=== PATIENT | male | born 1980 | race Hispanic/Latino ===

== ENCOUNTER 2019-02-11 15:43 | Inpatient (IN) | payer BC, SELFPAY ==
--- OUTSIDE RECORDS SUMMARY | 2019-02-11 15:47 | XMS REPORT | Summary of Care ---
:1980 Author Organization [facility] Address [address] [place] [address]- Encounter [facility](BARBARA) [id number] Date(s): 02/01/16 - 02/02/[address] [address]- Discharge Disposition: Home Attending Physician: Vincent Patel MD Admitting Physician: Vincent Patel MD Referring Physician: Vincent Patel MD Vital Signs Most recent to oldest 1 2 3 [Reference Range]: Height 180.34 cm (01/19/16 10:41 AM) Temperature Oral [96.4-99.1 98 DegF 98.1 DegF 98.2 DegF DegF] (02/02/16 8:00 PM) (02/02/16 3:58 PM) (02/02/16 12:07 PM) Blood Pressure [90-140/60-90 157/89 mmHg 136/82 mmHg 136/75 mmHg mmHg] *HI* (02/02/16 3:58 PM) (02/02/16 12:07 PM) (02/02/16 8:00 PM) Respiratory Rate [14-20 20 BRMIN 18 BRMIN 17 BRMIN BRMIN] (02/02/16 8:00 PM) (02/02/16 3:58 PM) (02/02/16 12:07 PM) Peripheral Pulse Rate [60-100 56 bpm 53 bpm 79 bpm bpm] *LOW* *LOW* (02/02/16 12:07 PM) (02/02/16 8:00 PM) (02/02/16 3:58 PM) Weight 148.182 kg (01/19/16 10:41 AM) Body Mass Index 45.56 m2 (01/19/16 10:41 AM) Problem List Condition Effective Dates Status Health Status Informant Acid reflux(Confirmed) Resolved back BP+ - Hypertension(Confirmed) Active C/O - low back pain(Confirmed) Active Degenerative disc disease(Confirmed) Active Morbid obesity(Confirmed) Active Allergies, Adverse Reactions, Alerts Substance Reaction Severity Status NKDA Active Medications Ancef 3 gm, 100 mL, Route: IVPB, Drug form: INJ, ONCALL, Start date: 02/01/16 0:00:00 CDT, Duration: 30 day, Stop date: 03/01/16 23:59:00 CDT Notes: Same as: Ancef Start Date: 02/01/16 Stop Date: 02/01/16 Status: CompletedANES diphenhydrAMINE 12.5 mg, 0.25 mL, Route: IVP, Drug form: INJ, Q6H, Dosing Weight 148.182, kg, PRN Itching, Start date: 02/01/16 11:33:00 CDT, Duration: 30 day, Stop date: 07/06 11:32:00 CDT Notes: (Same as: Benadryl) Start Date: 02/01/16 Stop Date: 02/01/16 Status: DiscontinuedANES fentaNYL 25 microgram, 0.5 mL, Route: IVP, Drug form: INJ, Q5Min, Dosing Weight 148.182, kg, PRN Pain Score 4-6, Start date: 02/01/16 11:33:00 CDT, Duration: 4 doses or times, Stop date: Limited # of times Notes: (Same as: Sublimaze) Preservative free. Start Date: 02/01/16 Stop Date: 02/01/16 Status: DiscontinuedANES flumazenil 0.2 mg, 2 mL, Route: IVP, Drug form: INJ, PRN, Dosing Weight 148.182, kg, PRN Benzodiazepine Reversal, Initial dose, Start date: 02/01/16 7:44:00 CDT, Duration: 30 day, Stop date: 03/02/16 7:43:00 CDT Notes: (Same as: Romazicon) Start Date: 02/01/16 Stop Date: 02/01/16 Status: DiscontinuedANES flumazenil 0.2 mg, 2 mL, Route: IVP, Drug form: INJ, PRN, Dosing Weight 148.182, kg, PRN Benzodiazepine Reversal, Initial dose, Start date: 02/01/16 11:33:00 CDT, Duration: 30 day, Stop date: 03/02/16 11:32:00 CDT Notes: (Same as: Romazicon) Start Date: 02/01/16 Stop Date: 02/01/16 Status: DiscontinuedANES HYDROmorphone 0.5 mg, 0.25 mL, Route: IVP, Drug form: INJ, Q5Min, Dosing Weight 148.182, kg, PRN Pain Score 7-10, Start date: 02/01/16 11:33:00 CDT, Duration: 4 doses or times, Stop date: Limited # of times Notes: (Same as: Dilaudid) Start Date: 02/01/16 Stop Date: 02/01/16 Status: CompletedANES ketOROLAC 30 mg, 1 mL, Route: IVP, Drug form: INJ, ONCE, Dosing Weight 148.182, kg, Start date: 02/01/16 11:33:00 CDT, Duration: 1 doses or times, Stop date: 02/01/16 11: 33:00 CDT Notes: (Same as:Toradol) IV bolus must be given >15 seconds. Give IM administration slowly and deeply into the muscle.Not for use > 4 days MEDICATION WASTE Product Size: 30 mgProduct Wasted: ___ mg Start Date: 02/01/16 Stop Date: 02/01/16 Status: DiscontinuedANES labetalol 10 mg, 2 mL, Route: IVP, Drug form: INJ, Q5Min, Dosing Weight 148.182, kg, PRN Elevated BP, Start date: 02/01/16 11:33:00 CDT, Duration: 5 doses or times, Stop date: Limited # of times Notes: (Same as: Normodyne, Trandate)Push over 2 minutes Give bolus over 2-3 minutes. Start Date: 02/01/16 Stop Date: 02/01/16 Status: DiscontinuedANES meperidine 12.5 mg, 0.25 mL, Route: IVP, Drug form: INJ, Q30Min, Dosing Weight 148.182, kg , PRN Other -See Comment, For shivering, Start date: 02/01/16 11:33:00 CDT, Duration: 2 doses or times, Stop date: Limited# of times Notes: (Same As: Demerol) Start Date: 02/01/16 Stop Date: 02/01/16 Status: DiscontinuedANES morphine Sulfate 2 mg, 0.2 mL, Route: IVP, Drug form: INJ, Q5Min, Dosing Weight 148.182, kg, PRN Pain Score 4-6, Start date: 02/01/16 11:33:00 CDT, Duration: 5 doses or times, Stop date: Limited # of times Notes: (Same as:MORPhine Sulfate) Start Date: 02/01/16 Stop Date: 02/01/16 Status: DiscontinuedANES naloxone 0.4 mg, 1 mL, Route: IVP, Drug form: INJ, Q2MIN, Dosing Weight 148.182, kg, PRN Narcotic Reversal, Start date: 02/01/16 7:44:00 CDT, Duration: 8 doses or times , Stop date: Limited # of times Notes: Same as Narcan Start Date: 02/01/16 Stop Date: 02/01/16 Status: DiscontinuedANES naloxone 0.4 mg, 1 mL, Route: IVP, Drug form: INJ, Q2MIN, Dosing Weight 148.182, kg, PRN Narcotic Reversal, Start date: 02/01/16 11:33:00 CDT, Duration: 8 doses or times , Stop date: Limited # of times Notes: Same as Narcan Start Date: 02/01/16 Stop Date: 02/01/16 Status: DiscontinuedANES ondansetron 4 mg, 2 mL, Route: IVP, Drug form: INJ, ONCE, Dosing Weight 148.182, kg, PRN Nausea & Vomiting, Start date: 02/01/16 7:44:00 CDT Notes: (Same as: Ysabel) MEDICATION WASTE Product Size: 4 mgProduct Wasted: ___ mg Start Date: 02/01/16 Stop Date: 02/01/16 Status: CompletedANES ondansetron 4 mg, 2 mL, Route: IVP, Drug form: INJ, ONCE, Dosing Weight 148.182, kg, PRN Nausea & Vomiting, Start date: 02/01/16 11:33:00 CDT Notes: (Same as: Ysabel) MEDICATION WASTE Product Size: 4 mgProduct Wasted: ___ mg Start Date: 02/01/16 Stop Date: 02/01/16 Status: DiscontinuedBD Normal Saline Flush 10 mL, Route: IV, Drug Form: INJ, PRN, PRN Line Flush, Start date: 02/01/16 14: 05:00 CDT, Duration: 30 day, Stop date: 03/02/16 14:04:00 CDT Notes: (Same as: BD Posiflush) Start Date: 02/01/16 Stop Date: 02/02/16 Status: DiscontinuedBD Normal Saline Flush 5 mL, Route: IV, Drug Form: INJ, PRN, PRN Line Flush, Start date: 02/01/16 14:04 :00 CDT, Duration: 30 day, Stop date: 03/02/16 14:03:00 CDT Notes: (Same as: BD Posiflush) Start Date: 02/01/16 Stop Date: 02/02/16 Status: DiscontinuedDilaudid 0.5 mg, 0.25 mL, Route: IV, Drug form: INJ, Q3H, Dosing Weight 148.182, kg, PRN Pain Score 7-10, Start date: 02/01/16 11:37:00 CDT, Duration: 30 day, Stop date : 03/02/16 11:36:00 CDT Notes: (Same as: Dilaudid) Start Date: 02/01/16 Stop Date: 02/02/16 Status: Discontinuedenoxaparin 30 mg, 0.3 mL, Route: SUB-Q, Drug form: INJ, [id number], Dosing Weight 148.182, kg , Start date: 02/01/16 23:30:00 CDT, Duration: 30 day, Stop date: 03/02/16 11:30 :00 CDT Notes: (Same as: Lovenox) Start Date: 02/01/16 Stop Date: 02/02/16 Status: DiscontinuedketOROLAC 30 mg, 1 mL, Route: IVP, Drug form: INJ, Q6H, Dosing Weight 148.182, kg, Start date: 02/01/16 15:00:00 CDT, Duration: 6 doses or times, Stop date: 02/02/16 21: 00:00 CDT Notes: (Same as:Toradol) IV bolus must be given >15 seconds. Give IM administration slowly and deeply into the muscle.Not for use > 4 days MEDICATION WASTE Product Size: 30 mgProduct Wasted: ___ mg Start Date: 02/01/16 Stop Date: 02/02/16 Status: CompletedLactated Ringers 1,000 mL 1,000 mL, Rate: 125 ml/hr, Infuse over: 8 hr, Route: IV, Dosing Weight 148.182 kg, Total Volume: 1,000, Start date: 02/01/16 11:34:00 CDT, Stop date: 02/02/16 9:00:00 CDT Start Date: 02/01/16 Stop Date: 02/02/16 Status: CompletedLactated Ringers 1,000 mL 1,000 mL, Rate: 80 ml/hr, Infuse over: 12.5 hr, Route: IV, Dosing Weight 148.182 kg, Total Volume: 1,000, Start date: 02/02/16 9:00:00 CDT, Duration: 30 day, Stop date: 03/03/16 8:59:00 CDT Start Date: 02/02/16 Stop Date: 02/02/16 Status: DiscontinuedLactated Ringers Injection IV 1000 mL 1,000 mL, Rate: 80 ml/hr, Infuse over: 12.5 hr, Route: IV, Dosing Weight 148.182 kg, Total Volume: 1,000, Priority: STAT, Start date: 02/01/16 11:34:00 CDT, Duration: 30 day, Stop date: 03/02/16 11:33:00 CDT Start Date: 02/01/16 Stop Date: 02/01/16 Status: Discontinuedondansetron 4 mg, 2 mL, Route: IVP, Drug form: INJ, Q12H, Dosing Weight 148.182, kg, PRN Nausea & Vomiting, Start date: 02/01/16 11:34:00 CDT, Duration: 30 day, Stop date: 03/02/16 11:33:00 CDT Notes: (Same as: Zofran) MEDICATION WASTE Product Size: 4 mgProduct Wasted: ___ mg Start Date: 02/01/16 Stop Date: 02/02/16 Status: Discontinuedpromethazine 12.5 mg, 50 mL, Route: IVPB, Drug form: SOLN, Q4H, Dosing Weight 148.182, kg, PRN Nausea & Vomiting, Start date: 02/01/16 11:34:00 CDT, Duration: 30 day, Stop date: 03/02/16 11:33:00 CDT Start Date: 02/01/16 Stop Date: 02/02/16 Status: DiscontinuedSodium Chloride 0.9% IV 25 mL, Route: IV, Start date: 02/01/16 14:05:00 CDT, Duration: 30 day, Stop date : 03/02/16 14:04:00 CDT, PRN Line Flush Start Date: 02/01/16 Stop Date: 02/02/16 Status: Discontinued Results BLOOD BANK RESULTS Most recent to oldest [Reference Range]: 1 2 ABO/Rh A POS *Unknown* (02/01/16 8:22 AM) Antibody Scrn Negative (02/01/16 8:22 AM) ELECTROLYTES Most recent to oldest [Reference Range]: 1 2 Sodium Lvl [135-145 mEq/L] 142 mEq/L 140 mEq/L (02/02/16 5:38 AM) (01/19/16 11:50 AM) Potassium Lvl [3.5-5.1 mEq/L] 4.0 mEq/L 4.2 mEq/L (02/02/16 5:38 AM) (01/19/16 11:50 AM) Chloride Lvl [95-109 mEq/L] 108 mEq/L 102 mEq/L (02/02/16 5:38 AM) (01/19/16 11:50 AM) CO2 [24-32 mEq/L] 23 mEq/L 30 mEq/L *LOW* (01/19/16 11:50 AM) (02/02/16 5:38 AM) AGAP [10.0-20.0 mEq/L] 15.0 mEq/L 12.2 mEq/L (02/02/16 5:38 AM) (01/19/16 11:50 AM) CHEM PANEL Most recent to oldest [Reference Range]: 1 2 Creatinine Lvl [0.50-1.40 mg/dL] 0.79 mg/dL 0.96 mg/dL (02/02/16 5:38 AM) (01/19/16 11:50 AM) eGFR 118 mL/min/1.73m2 1 104 mL/min/1.73m2 2 *NA* *NA* (02/02/16 5:38 AM) (01/19/16 11:50 AM) BUN [7-22 mg/dL] 12 mg/dL 16 mg/dL (02/02/16 5:38 AM) (01/19/16 11:50 AM) B/C Ratio [6-25] 17 (01/19/16 11:50 AM) Glucose Lvl [70-99 mg/dL] 105 mg/dL 103 mg/dL *HI* *HI* (02/02/16 5:38 AM) (01/19/16 11:50 AM) Total Protein [6.4-8.4 g/dL] 8.0 g/dL (01/19/16 11:50 AM) Albumin Lvl [3.5-5.0 g/dL] 3.9 g/dL (01/19/16 11:50 AM) Globulin [2.0-4.0 g/dL] 4.1 g/dL *HI* (01/19/16 11:50 AM) A/G Ratio [0.7-1.6] 1.0 (01/19/16 11:50 AM) Calcium Lvl [8.5-10.5 mg/dL] 8.7 mg/dL 9.4 mg/dL (02/02/16 5:38 AM) (01/19/16 11:50 AM) ALT [0-65 unit/L] 35 unit/L (01/19/16 11:50 AM) AST [0-37 unit/L] 23 unit/L (01/19/16 11:50 AM) Alk Phos [39-136 unit/L] 137 unit/L *HI* (01/19/16 11:50 AM) Bili Total [0.2-1.3 mg/dL] 0.8 mg/dL (01/19/16 11:50 AM) Vitamin D, 25-OH, Total [30-100 ng/mL] 24 ng/mL *LOW* (01/19/16 11:50 AM) 1Result Comment: The eGFR is calculated using the CKD-EPI formula. In most young , healthy individualsthe eGFR will be >90 mL/min/1.73m2. The eGFR declines with age. An eGFR of 60-89 may be normal in some populations, particularly the elderly, for whom the CKD-EPI formula has not been extensively validated. Use of the eGFR is not recommended in the following populations: Individuals with unstable creatinine concentrations, including patients and those with serious co-morbid conditions. Patients with extremes in muscle mass or diet. The data above are obtained from the National Kidney Disease Education Program ( NKDEP) which additionally recommends that when the eGFR is used in patients with extremes of body mass index for purposesof drug dosing, the eGFR should be multiplied by the estimated BMI.2Result Comment: The eGFR is calculated using the CKD-EPI formula. In most young, healthy individualsthe eGFR will be >90 mL/ min/1.73m2. The eGFR declines with age. An eGFR of 60-89 may be normal in some populations, particularly the elderly, for whom the CKD-EPI formula has not been extensively validated. Use of the eGFR is not recommended in the following populations: Individuals with unstable creatinine concentrations, including patients and those with serious co-morbid conditions. Patients with extremes in muscle mass or diet. The data above are obtained from the National Kidney Disease Education Program ( NKDEP) which additionally recommends that when the eGFR is used in patients with extremes of body mass index for purposesof drug dosing, the eGFR should be multiplied by the estimated BMI.SPECIAL CHEMISTRY Most recent to oldest [Reference Range]: 1 2 Hgb A1C [<=5.6 %] 5.5 % (01/19/16 11:50 AM) PARATHYROID PROFILE Most recent to oldest [Reference Range]: 1 2 PTH Intact [11.1-79.5 pg/mL] 59.5 pg/mL (01/19/16 11:50 AM) URINE AND STOOL Most recent to oldest [Reference Range]: 1 2 UA Turbidity [Clear] Clear (01/19/16 11:15 AM) UA Color [Yellow] Light Yellow *NA* (01/19/16 11:15 AM) UA pH [5.0-8.0] 5.0 (01/19/16 11:15 AM) UA Spec Grav [<=1.030] 1.017 (01/19/16 11:15 AM) UA Glucose [Negative mg/dL] Negative mg/dL *NA* (01/19/16 11:15 AM) UA Blood [Negative] Small *ABN* (01/19/16 11:15 AM) UA Ketones Negative *NA* (01/19/16 11:15 AM) UA Protein [Negative mg/dL] Negative mg/dL (01/19/16 11:15 AM) UA Urobilinogen [0.1-1.0 mg/dL] <=1.0 mg/dL *NA* (01/19/16 11:15 AM) UA Bili [Negative] Negative *NA* (01/19/16 11:15 AM) UA Leuk Est [Negative] Negative (01/19/16 11:15 AM) UA Nitrite [Negative] Negative (01/19/16 11:15 AM) UA RBC [0-2 /HPF] <1 /HPF (01/19/16 11:15 AM) UA Mucus [None Seen /LPF] Few /LPF *NA* (01/19/16 11:15 AM) Micro? Performed *NA* (01/19/16 11:15 AM) HEMATOLOGY Most recent to oldest [Reference Range]: 1 2 WBC [3.7-10.4 K/CMM] 12.3 K/CMM 8.3 K/CMM *HI* (01/19/16 11:50 AM) (02/02/16 5:38 AM) RBC [4.70-6.10 M/CMM] 4.93 M/CMM 5.36 M/CMM (02/02/16 5:38 AM) (01/19/16 11:50 AM) Hgb [14.0-18.0 g/dL] 13.4 g/dL 14.7 g/dL *LOW* (01/19/16 11:50 AM) (02/02/16 5:38 AM) Hct [42.0-54.0 %] 40.7 % 44.5 % *LOW* (01/19/16 11:50 AM) (02/02/16 5:38 AM) MCV [80.0-94.0 fL] 82.6 fL 83.0 fL (02/02/16 5:38 AM) (01/19/16 11:50 AM) MCH [27.0-31.0 pg] 27.2 pg 27.4 pg (02/02/16 5:38 AM) (01/19/16 11:50 AM) MCHC [32.0-36.0 g/dL] 33.0 g/dL 33.0 g/dL (02/02/16 5:38 AM) (01/19/16 11:50 AM) RDW [11.5-14.5 %] 12.9 % 12.9 % (02/02/16 5:38 AM) (01/19/16 11:50 AM) Platelet [133-450 K/CMM] 250 K/CMM 277 K/CMM (02/02/16 5:38 AM) (01/19/16 11:50 AM) MPV [7.4-10.4 fL] 7.8 fL 7.1 fL (02/02/16 5:38 AM) *LOW* (01/19/16 11:50 AM) Segs [45.0-75.0 %] 78.6 % 64.6 % *HI* (01/19/16 11:50 AM) (02/02/16 5:38 AM) Lymphocytes [20.0-40.0 %] 15.3 % 29.4 % *LOW* (01/19/16 11:50 AM) (02/02/16 5:38 AM) Monocytes [2.0-12.0 %] 4.3 % 4.8 % (02/02/16 5:38 AM) (01/19/16 11:50 AM) Eosinophils [0.0-4.0 %] 0.0 % 0.7 % (02/02/16 5:38 AM) (01/19/16 11:50 AM) Basophils [0.0-1.0 %] 1.8 % 0.5 % *HI* (01/19/16 11:50 AM) (02/02/16 5:38 AM) Segs-Bands # [1.5-8.1 K/CMM] 9.6 K/CMM 5.3 K/CMM *HI* (01/19/16 11:50 AM) (02/02/16 5:38 AM) Lymphocytes # [1.0-5.5 K/CMM] 1.9 K/CMM 2.4 K/CMM (02/02/16 5:38 AM) (01/19/16 11:50 AM) Monocytes # [0.0-0.8 K/CMM] 0.5 K/CMM 0.4 K/CMM (02/02/16 5:38 AM) (01/19/16 11:50 AM) Eosinophils # [0.0-0.5 K/CMM] 0.0 K/CMM 0.1 K/CMM (02/02/16 5:38 AM) (01/19/16 11:50 AM) Basophils # [0.0-0.2 K/CMM] 0.2 K/CMM 0.0 K/CMM (02/02/16 5:38 AM) (01/19/16 11:50 AM) PT [12.0-14.7 seconds] 15.5 seconds 14.1 seconds *HI* (01/19/16 11:50 AM) (02/02/16 5:38 AM) INR [0.85-1.17] 1.20 1.06 *HI* (01/19/16 11:50 AM) (02/02/16 5:38 AM) PTT [22.9-35.8 seconds] 36.0 seconds 38.8 seconds *HI* *HI* (02/02/16 5:38 AM) (01/19/16 11:50 AM) Immunizations No data available for this section Procedures Procedure Date Related Diagnosis Body Site Epidural steroid injection Incision and drainage of abscess of villa Social History Social History Type Response Alcohol Current, Type Beer, Liquor. Frequency: 3-5 times per week. Smoking Status Former smoker; Type: Cigarettes; Exposure to Tobacco Smoke None ; Cigarette Smoking Last 365 Days No; Reg Smoking Cessation Counseling No Assessment and Plan Extracted from: Title: Clinical Document Author: Vincent Patel MD Date: 02/02/16 Progress Note - Daily [facility] Completed: Jan, 13:05 by Vincent Patel MD RM: 531 - [id number], [id number] DEMETRIA ZAMBRANO 35y (: 1980) M Attending: Vincent Patel MD Service: General Surgery Service Reason for Admission: 34190, MORBID OBESITY Working DRG: None Documented Code status: None Specified=FULL CODE Current diet: Isolation: None Documented Allergies: NKDA SUBJECTIVE/ OBJECTIVE No events. Tolerating diet.Pain controlled 24hr Labs 02/01 0538 Glucose Lvl 105 H BUN 12 Creatinine Lvl 0.79 Sodium Lvl 142 Potassium Lvl 4.0 Chloride Lvl 108 CO2 23 L AGAP 15.0 Calcium Lvl 8.7 eGFR 118 WBC 12.3 H RBC 4.93 Hgb 13.4 L Hct 40.7 L MCV 82.6 MCH 27.2 MCHC 33.0 RDW 12.9 Platelet 250 MPV 7.8 Segs 78.6 H Monocytes 4.3 Lymphocytes 15.3 L Eosinophils 0.0 Basophils 1.8 H Segs-Bands # 9.6 H Lymphocytes # 1.9 Monocytes # 0.5 Eosinophils # 0.0 Basophils # 0.2 PT 15.5 H INR 1.20 H PTT 36.0 H Bello still necessary (Yes/No): Line still necessary (Yes/No): Vitals Tmp(F) Pulse BP RR SpO2 FIO2 02/01 12:07 98.2 79 136/75 17 --- --- 02/01 07:56 ---- --- ----- -- 96 21% 02/01 07:36 98.3 65 153/82 18 98 --- 02/01 05:50 ---- --- ----- -- 96 21% 02/01 04:00 97.6 76 125/55 19 98 --- 24 Hr Tmax: 98.6F (37.00c) at 01/31 20:00 Vital Signs are the last 5 in the past 48 hours. Date Wt(kg) Wt(lb) Ht(cm) Ht(in) Method 01/18 (initial) 148.18 326.00 180.34 71.00 Measured I&O Record In Out Bal 02/01 24hr Tot 322 600 -278 01/31 24hr Tot [phone] Medications (10) Active Scheduled Meds (2): 02/01/16 enoxaparin 30 mg SUB-Q [id number] 02/01/16 ketOROLAC 30 mg IVP Q6H Unscheduled Meds: None PRN Meds (6): 02/01/16 Sodium Chloride 0.9% IV 25 mL IV PRN 02/01/16 hydromorphone (Dilaudid) 0.5 mg IV Q3H 02/01/16 ondansetron 4 mg IVP Q12H 02/01/16 promethazine 12.5 mg IVPB Q4H 300 ml/hr 02/01/16 sodium chloride (BD Normal Saline Flush) 5 mL IV PRN 02/01/16 sodium chloride (BD Normal Saline Flush) 10 mL IV PRN One Time Meds (1): 02/01/16 (Discontinued) ketOROLAC (ANES ketOROLAC) 30 mg IVP ONCE Continuous Infusions (1): 02/02/16 Lactated Ringers 1,000 mL 1,000 mL 80 ml/hr ASSESSMENT & EXAM NAD RRR Soft, ND, appr TTP, wounds c/d/i PLAN & TREATMENT S/p lap RYGB. Tolerating diet. Pain controlled. Ambulating well. Ready for Discharge (Yes/No)? 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
--- OUTSIDE RECORDS SUMMARY | 2019-02-11 15:47 | XMS REPORT | Continuity of Care Document ---
:1980 Author Organization [facility] Care Team Providers Name Role Phone [facility] Information [employer] Unavailable Unavailable Problems Problem Status Onset Classification Date Comments Source Date Reported 47488, MORBID Active 01/06/20 [facility] OBESITY [address] [place] [address] [id number], REFLUX Active 11/30/[address] Acid reflux Resolved Problem 02/05/2016 [facility] back BP+ - Active Problem 02/05/2016 [facility] Hypertension [facility] C/O - low back Active Problem 02/05/2016 [facility] pain [facility] Degenerative Active Problem 02/05/2016 [facility] disc disease [facility] Morbid obesity Active Problem 02/05/2016 [facility] ILLNESS, Active [facility] UNSPECIFIED [facility] Medications Medication Details Route Status Patient Ordering Order Source Instructions Provider Date Lactated Ringers 1,000 mL, Rate: Inactive 1,000 mL 80 ml/hr, Infuse [address] [place] [address] over: 12.5 hr, [facility] Route: IV, Dosing Weight 148.182 kg, Total Volume: 1,000, Start date: 02/02/16 9:00:00 CDT, Duration: 30 day, Stop date: 03/03/16 8:59:00 CDT Enoxaparin 30 mg, 0.3 mL, No Longer Route: SUB-Q, Active 2015 [facility] Drug form: INJ, [facility] [id number], Dosing Weight 148.182, kg, Start date: 02/01/16 23:30:00 CDT, Duration: 30 day, Stop date: 03/02/16 11:30:00 CDTNotes: (Same as: Lovenox) Ketorolac 30 mg, 1 mL, No Longer Route: IVP, Drug Active 2015 [facility] form: INJ, Q6H, [facility] Dosing Weight 148.182, kg, Start date: 02/01/16 15:00:00 CDT, Duration: 6 doses or times, Stop date: 02/02/16 21:00:00 CDTNotes: (Same as:Toradol) IV bolus must be given >15 seconds. Give IM administration slowly and deeply into the muscle. Not for use > 4 days MEDICATION WASTE Product Size: 30 mg Product Wasted: ___ mg Sodium Chloride 25 mL, Route: No Longer 0.9% IV IV, Start date: [address] 02/01/16 [facility] 14:05:00 CDT, Duration: 30 day, Stop date: 03/02/16 14:04:00 CDT, PRN Line Flush BD Normal Saline 10 mL, Route: No Longer Flush IV, Drug Form: [facility] 2015 [facility] INJ, PRN, PRN [facility] Line Flush, Start date: 02/01/16 14:05:00 CDT, Duration: 30 day, Stop date: 03/02/16 14:04:00 CDTNotes: (Same as: BD Posiflush) BD Normal Saline 5 mL, Route: IV, No Longer Flush Drug Form: INJ, [facility] 2015 [facility] PRN, PRN Line [facility] Flush, Start date: 02/01/16 14:04:00 CDT, Duration: 30 day, Stop date: 03/02/16 14:03:00 CDTNotes: (Same as: BD Posiflush) Dilaudid 0.5 mg, 0.25 mL, No Longer Route: IV, Drug [address] form: INJ, Q3H, [facility] Dosing Weight 148.182, kg, PRN Pain Score 7-10, Start date: 02/01/16 11:37:00 CDT, Duration: 30 day, Stop date: 03/02/16 11:36:00 CDTNotes: (Same as: Dilaudid) Lactated Ringers 1,000 mL, Rate: Inactive Injection IV 1000 80 ml/hr, Infuse 2015 [facility] over: 12.5 hr, [facility] Route: IV, Dosing Weight 148.182 kg, Total Volume: 1,000, Priority: STAT, Start date: 02/01/16 11:34:00 CDT, Duration: 30 day, Stop date: 03/02/16 11:33:00 CDT Calcium Chloride 1,000 mL, Rate: No Longer 0.0014 MEQ/ML / 125 ml/hr, Active 2015 [facility] Potassium Infuse over: 8 [facility] Chloride 0.004 hr, Route: IV, MEQ/ML / Sodium Dosing Weight Chloride 0.103 148.182 kg, MEQ/ML / Sodium Total Volume: Lactate 0.028 1,000, Start MEQ/ML Injectable date: 02/01/16 Solution 11:34:00 CDT, Stop date: 02/02/16 9:00:00 CDT Promethazine 12.5 mg, 50 mL, No Longer Route: IVPB, [facility] 2015 [facility] Drug form: SOLN, City Q4H, Dosing Weight 148.182, kg, PRN Nausea & Vomiting, Start date: 02/01/16 11:34:00 CDT, Duration: 30 day, Stop date: 03/02/16 11:33:00 CDT Ondansetron 4 mg, 2 mL, No Longer Route: IVP, Drug [facility] 2015 [facility] form: INJ, Q12H, City Dosing Weight 148.182, kg, PRN Nausea & Vomiting, Start date: 02/01/16 11:34:00 CDT, Duration: 30 day, Stop date: 03/02/16 11:33:00 CDTNotes: (Same as: Zofran) MEDICATION WASTE Product Size: 4 mg Product Wasted: ___ mg Hydromorphone 0.5 mg, 0.25 mL, Inactive Route: IVP, Drug 2015 [facility] form: INJ, City Q5Min, Dosing Weight 148.182, kg, PRN Pain Score 7-10, Start date: 02/01/16 11:33:00 CDT, Duration: 4 doses or times, Stop date: Limited # of timesNotes: (Same as: Dilaudid) Naloxone 0.4 mg, 1 mL, Inactive Route: IVP, Drug 2015 [facility] form: INJ, City Q2MIN, Dosing Weight 148.182, kg, PRN Narcotic Reversal, Start date: 02/01/16 11:33:00 CDT, Duration: 8 doses or times, Stop date: Limited # of timesNotes: Same as Narcan Meperidine 12.5 mg, 0.25 Inactive mL, Route: IVP, 2015 [facility] Drug form: INJ, City Q30Min, Dosing Weight 148.182, kg, PRN Other -See Comment, For shivering, Start date: 02/01/16 11:33:00 CDT, Duration: 2 doses or times, Stop date: Limited # of timesNotes: (Same As: Demerol) Flumazenil 0.2 mg, 2 mL, Inactive Route: IVP, Drug 2015 [facility] form: INJ, PRN, City Dosing Weight 148.182, kg, PRN Benzodiazepine Reversal, Initial dose, Start date: 02/01/16 11:33:00 CDT, Duration: 30 day, Stop date: 03/02/16 11:32:00 CDTNotes: (Same as: Romazicon) Diphenhydramine 12.5 mg, 0.25 Inactive mL, Route: IV2015 [facility] Drug form: INJ, City Q6H, Dosing Weight 148.182, kg, PRN Itching, Start date: 02/01/16 11:33:00 CDT, Duration: 30 day, Stop date: 03/02/16 11:32:00 CDTNotes: (Same as: Benadryl) Ondansetron 4 mg, 2 mL, Inactive Route: IVP, Drug 2015 [facility] form: INJ, ONCE, [facility] Dosing Weight 148.182, kg, PRN Nausea & Vomiting, Start date: 02/01/16 11:33:00 CDTNotes: (Same as: Zofran) MEDICATION WASTE Product Size: 4 mg Product Wasted: ___ mg Labetalol 10 mg, 2 mL, Inactive Route: IVP, Drug 2015 [facility] form: INJ, City Q5Min, Dosing Weight 148.182, kg, PRN Elevated BP, Start date: 02/01/16 11:33:00 CDT, Duration: 5 doses or times, Stop date: Limited # of timesNotes: (Same as: Normodyne, Trandate) Push over 2 minutes Give bolus over 2-3 minutes. Ketorolac 30 mg, 1 mL, Inactive Route: IVP, Drug 2015 [facility] form: INJ, ONCE, City Dosing Weight 148.182, kg, Start date: 02/01/16 11:33:00 CDT, Duration: 1 doses or times, Stop date: 02/01/16 11:33:00 CDTNotes: (Same as:Toradol) IV bolus must be given >15 seconds. Give IM administration slowly and deeply into the muscle. Not for use > 4 days MEDICATION WASTE Product Size: 30 mg Product Wasted: ___ mg Morphine 2 mg, 0.2 mL, Inactive Route: IVP, Drug 2015 [facility] form: INJ, City Q5Min, Dosing Weight 148.182, kg, PRN Pain Score 4-6, Start date: 02/01/16 11:33:00 CDT, Duration: 5 doses or times, Stop date: Limited # of timesNotes: (Same as:MORPhine Sulfate) Fentanyl 25 microgram, Inactive 0.5 mL, Route: 2015 [facility] IVP, Drug form: City INJ, Q5Min, Dosing Weight 148.182, kg, PRN Pain Score 4-6, Start date: 02/01/16 11:33:00 CDT, Duration: 4 doses or times, Stop date: Limited # of timesNotes: (Same as: Sublimaze) Preservative free. Naloxone 0.4 mg, 1 mL, Inactive Route: IVP, Drug 2015 [facility] form: INJ, City Q2MIN, Dosing Weight 148.182, kg, PRN Narcotic Reversal, Start date: 02/01/16 7:44:00 CDT, Duration: 8 doses or times, Stop date: Limited # of timesNotes: Same as Narcan Flumazenil 0.2 mg, 2 mL, Inactive Route: IVP, Drug 2015 [facility] form: INJ, PRN, [facility] Dosing Weight 148.182, kg, PRN Benzodiazepine Reversal, Initial dose, Start date: 02/01/16 7:44:00 CDT, Duration: 30 day, Stop date: 03/02/16 7:43:00 CDTNotes: (Same as: Romazicon) Ondansetron 4 mg, 2 mL, Inactive Route: IVP, Drug 2015 [facility] form: INJ, ONCE, [facility] Dosing Weight 148.182, kg, PRN Nausea & Vomiting, Start date: 02/01/16 7:44:00 CDTNotes: (Same as: Zofran) MEDICATION WASTE Product Size: 4 mg Product Wasted: ___ mg Ancef 3 gm, 100 mL, Inactive Route: IVPB, 2015 [facility] Drug form: INJ, City ONCALL, Start date: 02/01/16 0:00:00 CDT, Duration: 30 day, Stop date: 03/01/16 23:59:00 CDTNotes: Same as: Ancef Ondansetron 4 mg, 2 mL, No Longer Route: IVP, Drug Active 2015 [facility] form: INJ, ONCE, [facility] Dosing Weight 148.182, kg, PRN Nausea & Vomiting, Start date: 12/02/15 8:11:00 CDTNotes: (Same as: Zofran) MEDICATION WASTE Product Size: 4 mg Product Wasted: ___ mg Promethazine 6.25 mg, 0.25 No Longer mL, Route: IVPB, Active 2015 [facility] ONCE, Dosing City Weight 148.182, kg, PRN Nausea & Vomiting, Start date: 12/02/15 8:11:00 CDTNotes: Do not give IV push. (Same as: Phenergan) Naloxone 0.04 mg, 0.1 mL, No Longer Route: IVP, Drug Active 2015 [facility] form: INJ, City Q2MIN, Dosing Weight 148.182, kg, PRN Narcotic Reversal, Start date: 12/02/15 8:11:00 CDT, Duration: 8 doses or times, Stop date: Limited # of timesNotes: Same as Narcan Ephedrine 5 mg, 0.1 mL, No Longer Route: IVP, Drug Active 2015 [facility] form: INJ, City Q5Min, Dosing Weight 148.182, kg, PRN Low Blood Pressure, Start date: 12/02/15 8:11:00 CDT, Duration: 30 day, Stop date: 01/01/16 8:10:00 CDTNotes: (Same as: ePHEDrine Sulfate) Diphenhydramine 12.5 mg, 0.25 No Longer mL, Route: IVP, Active 2015 [facility] Drug form: INJ, City Q6H, Dosing Weight 148.182, kg, PRN Itching, Start date: 12/02/15 8:11:00 CDT, Duration: 30 day, Stop date: 01/01/16 8:10:00 CDTNotes: (Same as: Benadryl) Flumazenil 0.2 mg, 2 mL, No Longer Route: IVP, Drug Active 2015 [facility] form: INJ, PRN, City Dosing Weight 148.182, kg, PRN Benzodiazepine Reversal, Initial dose, Start date: 12/02/15 8:11:00 CDT, Duration: 30 day, Stop date: 01/01/16 8:10:00 CDTNotes: (Same as: Romazicon) Sodium Chloride 500 mL, Rate: No Longer 0.154 MEQ/ML 125 ml/hr, 2015 [facility] Injectable Infuse over: 4 City Solution hr, Route: IV, Dosing Weight 148.182 kg, Total Volume: 500, Start date: 12/02/15 8:11:00 CDT, Duration: 30 day, Stop date: 01/01/16 8:10:00 CDT Labetalol 10 mg, 2 mL, No Longer Route: IVP, Drug [facility] 2015 [facility] form: INJ, City Q5Min, Dosing Weight 148.182, kg, PRN Elevated BP, Start date: 12/02/15 8:11:00 CDT, Duration: 5 doses or times, Stop date: Limited # of timesNotes: (Same as: Normodyne, Trandate) Push over 2 minutes Give bolus over 2-3 minutes. Hydralazine 10 mg, 0.5 mL, No Longer Route: IVP, Drug Active 2015 [facility] form: INJ, City Q20Min, Dosing Weight 148.182, kg, PRN Elevated BP, Start date: 12/02/15 8:11:00 CDT, Duration: 2 doses or times, Stop date: Limited # of timesNotes: (Same as: Apresoline) Push over 5 minutes esmolol 10 mg, 1 mL, No Longer Route: IVP, Drug Active [address] [place] [address] form: INJ, City Q5Min, Dosing Weight 148.182, kg, PRN Other -See Comment, Start date: 12/02/15 8:11:00 CDT, Duration: 5 doses or times, Stop date: Limited # of timesNotes: (Same as: Brevibloc) Metoprolol 1 mg, 1 mL, No Longer Route: IVP, Drug Active 2015 [facility] form: INJ, City Q5Min, Dosing Weight 148.182, kg, PRN Other -See Comment, Start date: 12/02/15 8:11:00 CDT, Duration: 5 doses or times, Stop date: Limited # of timesNotes: (Same as: Lopressor) Push over 2 minutes carisoprodol 350 350 mg=1 tab, Active mg oral tablet PO, BID, 0 2015 [facility] Refill(s) [facility] lisinopril 20 mg 20 mg=1 tab, PO, Active oral tablet Daily, # 30 tab, 2015 [facility] 0 Refill(s) [facility] HYDROcodone 10 mg 10 mg=1 cap, PO, Active oral capsule, Q12H, 0 2015 [facility] extended release Refill(s) [facility] Allergies, Adverse Reactions, Alerts No Known Medication Allergies Immunizations No Data Provided for This Section Results Order Name Results Value Reference Date Interpretation Comments Source Range CHEM PANEL eGFR 118 02/01 Result Comment: [facility] eGFR is City calculated using the CKD-EPI formula. In most young, healthy individuals the eGFR will be >90 mL/min/1.73m2 . The eGFR declines with age. An eGFR of 60-89 may be normal in some populations, particularly the elderly, for whom the CKD-EPI formula has not been extensively validated. Use of the eGFR is not recommended in the following populations:< br/>
Sandra viduals with unstable creatinine concentration s, including patients and those with serious co-morbid conditions.<b r/>
Patie nts with extremes in muscle mass or diet.

The data above are obtained from the National Kidney Disease Education Program (NKDEP) which additionally recommends that when the eGFR is used in patients with extremes of body mass index for purposes of drug dosing, the eGFR should be multiplied by the estimated BMI. CHEM PANEL Creatinine 0.79 0.50 - 02/01 MH Lvl 1.40 /2015 [facility] CHEM PANEL Glucose Lvl 105 70 - 99 02/01 /2015 [facility] CHEM PANEL Calcium Lvl 8.7 8.5 - 10.5 02/01 /2015 [facility] CHEM PANEL CO2 23 24 - 32 02/01 /2015 [facility] CHEM PANEL Chloride Lvl 108 95 - 109 02/01 [facility] CHEM PANEL Potassium 4.0 3.5 - 5.1 02/01 MH Lvl /2015 [facility] CHEM PANEL Sodium Lvl 142 135 - 145 02/01 [facility] CHEM PANEL BUN 12 7 - 22 02/01 /2015 [facility] CHEM PANEL AGAP 15.0 10.0 - 02/01 MH 20.0 /2015 [facility] HEMATOLOGY MCH 27.2 27.0 - 02/01 MH 31.0 [facility] HEMATOLOGY MCHC 33.0 32.0 - 02/01 MH 36.0 /2015 [facility] HEMATOLOGY RDW 12.9 11.5 - 02/01 MH 14.5 /2015 [facility] HEMATOLOGY Hgb 13.4 14.0 - 02/01 MH 18.0 [facility] HEMATOLOGY Hct 40.7 42.0 - 02/01 MH 54.0 /2015 [facility] HEMATOLOGY MCV 82.6 80.0 - 02/01 MH 94.0 [facility] HEMATOLOGY Platelet 250 133 - 450 02/01 [facility] HEMATOLOGY MPV 7.8 7.4 - 10.4 02/01 [facility] HEMATOLOGY WBC 12.3 3.7 - 10.4 02/01 [facility] HEMATOLOGY RBC 4.93 4.70 - 02/01 MH 6.10 /2015 [facility] HEMATOLOGY Segs-Bands # 9.6 1.5 - 8.1 02/01 [facility] HEMATOLOGY Lymphocytes 1.9 1.0 - 5.5 02/01 MH # /2015 [facility] HEMATOLOGY Monocytes # 0.5 0.0 - 0.8 02/01 [facility] HEMATOLOGY Eosinophils 0.0 0.0 - 0.5 02/01 MH # /2015 [facility] HEMATOLOGY Basophils # 0.2 0.0 - 0.2 02/01 [facility] HEMATOLOGY Monocytes 4.3 2.0 - 12.0 02/01 [facility] HEMATOLOGY Eosinophils 0.0 0.0 - 4.0 02/01 [facility] HEMATOLOGY Basophils 1.8 0.0 - 1.0 02/01 /2015 [facility] HEMATOLOGY Segs 78.6 45.0 - 02/01 MH 75.0 /2015 [facility] HEMATOLOGY Lymphocytes 15.3 20.0 - 02/01 MH 40.0 /2015 [facility] HEMATOLOGY PTT 36.0 22.9 - 02/01 MH 35.8 /2015 [facility] HEMATOLOGY PT 15.5 12.0 - 02/01 MH 14.7 [facility] HEMATOLOGY INR 1.20 0.85 - 02/01 MH 1.17 /2015 [facility] BLOOD BANK ABO/Rh A POS 01/31 RESULTS /2015 [facility] BLOOD BANK Antibody Negative 01/31 RESULTS Scrn (02/01/16 8:22 AM) [facility] CHEM PANEL Vitamin D, 24 30 - 100 01/18 25-OH, Total [facility] CHEM PANEL ALT 35 0 - 65 01/18 [facility] CHEM PANEL CO2 30 24 - 32 01/18 [facility] CHEM PANEL Albumin Lvl 3.9 3.5 - 5.0 01/18 [facility] CHEM PANEL AST 23 0 - 37 01/18 [facility] CHEM PANEL eGFR 104 01/18 Result Comment: [facility] eGFR is City calculated using the CKD-EPI formula. In most young, healthy individuals the eGFR will be >90 mL/min/1.73m2 . The eGFR declines with age. An eGFR of 60-89 may be normal in some populations, particularly the elderly, for whom the CKD-EPI formula has not been extensively validated. Use of the eGFR is not recommended in the following populations:< br/>
Sandra viduals with unstable creatinine concentration s, including patients and those with serious co-morbid conditions.<b r/>
Patie nts with extremes in muscle mass or diet.

The data above are obtained from the National Kidney Disease Education Program (NKDEP) which additionally recommends that when the eGFR is used in patients with extremes of body mass index for purposes of drug dosing, the eGFR should be multiplied by the estimated BMI. CHEM PANEL Creatinine 0.96 0.50 - 01/18 MH Lvl 1.40 [facility] CHEM PANEL BUN 16 7 - 22 01/18 [facility] CHEM PANEL Glucose Lvl 103 70 - 99 01/18 MH /2015 [facility] CHEM PANEL Sodium Lvl 140 135 - 145 01/18 [facility] CHEM PANEL Potassium 4.2 3.5 - 5.1 01/18 MH Lvl /2015 [facility] CHEM PANEL Chloride Lvl 102 95 - 109 01/18 MH [facility] CHEM PANEL Calcium Lvl 9.4 8.5 - 10.5 01/18 [facility] CHEM PANEL Bili Total 0.8 0.2 - 1.3 01/18 [facility] CHEM PANEL Alk Phos 137 39 - 136 01/18 MH [facility] CHEM PANEL Total 8.0 6.4 - 8.4 01/18 MH [facility] CHEM PANEL B/C Ratio 17 6 - 25 01/18 [facility] CHEM PANEL AGAP 12.2 10.0 - 01/18 MH 20.0 /2015 [facility] CHEM PANEL A/G Ratio 1.0 0.7 - 1.6 01/18 [facility] CHEM PANEL Globulin 4.1 2.0 - 4.0 01/18 /2015 [facility] HEMATOLOGY PTT 38.8 22.9 - 01/18 MH 35.8 /2015 [facility] HEMATOLOGY PT 14.1 12.0 - 01/18 MH 14.7 [facility] HEMATOLOGY INR 1.06 0.85 - 01/18 MH 1.17 /2015 [facility] HEMATOLOGY RDW 12.9 11.5 - 01/18 MH 14.5 /2015 [facility] HEMATOLOGY Platelet 277 133 - 450 01/18 [facility] HEMATOLOGY MCHC 33.0 32.0 - 01/18 MH 36.0 [facility] HEMATOLOGY MPV 7.1 7.4 - 10.4 01/18 MH /2015 [facility] HEMATOLOGY MCV 83.0 80.0 - 01/18 MH 94.0 /2015 [facility] HEMATOLOGY MCH 27.4 27.0 - 01/18 MH 31.0 [facility] HEMATOLOGY Hct 44.5 42.0 - 01/18 MH 54.0 /2015 [facility] HEMATOLOGY Hgb 14.7 14.0 - 01/18 MH 18.0 /2015 [facility] HEMATOLOGY RBC 5.36 4.70 - 01/18 MH 6.10 /2015 [facility] HEMATOLOGY WBC 8.3 3.7 - 10.4 06 [facility] HEMATOLOGY Monocytes # 0.4 0.0 - 0.8 01/18 MH [facility] HEMATOLOGY Basophils # 0.0 0.0 - 0.2 01/18 MH [facility] HEMATOLOGY Eosinophils 0.7 0.0 - 4.0 01/18 [facility] HEMATOLOGY Basophils 0.5 0.0 - 1.0 01/18 [facility] HEMATOLOGY Eosinophils 0.1 0.0 - 0.5 01/18 MH # /2016 [facility] HEMATOLOGY Lymphocytes 2.4 1.0 - 5.5 01/18 MH # /2016 [facility] HEMATOLOGY Segs-Bands # 5.3 1.5 - 8.1 01/18 [facility] HEMATOLOGY Monocytes 4.8 2.0 - 12.0 01/18 [facility] HEMATOLOGY Lymphocytes 29.4 20.0 - 01/18 MH 40.0 /2015 [facility] HEMATOLOGY Segs 64.6 45.0 - 01/18 MH 75.0 [facility] PARATHYROID PTH Intact 59.5 11.1 - 01/18 MH PROFILE 79.5 /2015 [facility] SPECIAL Hgb A1C 5.5 <=5.6 % 01/18 CHEMISTRY /2015 [facility] URINE AND UA <=1.0 0.1 - 1.0 01/18 STOOL Urobilinogen mg/dL [facility] URINE AND UA Ketones Negative 01/18 STOOL [facility] URINE AND Micro? Performed 01/18 STOOL *NA* /2015 [facility] (01/19/16 11:15 AM) [facility] URINE AND UA Color Light Yellow Yellow 01/18 STOOL *NA* /2015 [facility] (01/19/16 11:15 AM) [facility] URINE AND UA Turbidity Clear Clear 01/18 STOOL (01/19/16 11:15 AM) [facility] URINE AND UA Spec Grav 1.017 <=1.030 01/18 STOOL [facility] URINE AND UA Protein Negative Negative 01/18 STOOL mg/dL mg/dL [facility] URINE AND UA Leuk Est Negative Negative 01/18 STOOL (01/19/16 11:15 AM) [facility] URINE AND UA Bili Negative Negative 01/18 STOOL *NA* /2015 [facility] (01/19/16 11:15 AM) [facility] URINE AND UA Glucose Negative Negative 01/18 STOOL mg/dL mg/dL /2015 [facility] URINE AND UA pH 5.0 5.0 - 8.0 01/18 STOOL /2015 [facility] URINE AND UA RBC <1 0 - 2 01/18 STOOL [facility] URINE AND UA Mucus Few /LPF None Seen 01/18 STOOL /LPF /2015 [facility] URINE AND UA Blood Small Negative 01/18 STOOL *ABN* /[facility] Nitrite Negative Negative 01/18 STOOL (01/19/16 11:15 AM) /2015 [facility] Pathology Reports No Data Provided for This Section Diagnostic Reports Report Value Date Source Chest 2 views DX EXAM: PA AND LATERAL CHEST X RAY 01/19/2016 [facility] DATE:- 01/19/2016 10:42 AM CDT . CLINICAL INDICATION: Dizziness. TECHNIQUE: PA and lateral views of chest COMPARISON: Unavailable FINDINGS: The lungs are well inflated. There is patchy interstitial opacity in the right upper lobe. The central veins are mildly congested. Heart size and mediastinal contours are normal. Cardiothoraci c ratio is 17:35. There is no acute bony abnormality. IMPRESSION: 1. Right upper lobe interstitial opacities may represent confluent vascular shadows versus atypical infection 2. Central venous congestion Consultation Notes No Data Provided for This Section Discharge Summaries No Data Provided for This Section History and Physicals No Data Provided for This Section Vital Signs Vital Sign Value Date Comments Source Systolic (mm Hg) 157 02/03/2016 [facility] Diastolic (mm Hg) 89 02/03/2016 [facility] Heart Rate 56 02/03/2016 [facility] Temperature Oral (F) 98 F 02/03/2016 [facility] Respitory Rate 20 02/03/2016 [facility] Temperature Oral (F) 98.1 F 02/02/2016 [facility] Respitory Rate 18 02/02/2016 [facility] Systolic (mm Hg) 136 02/02/2016 [facility] Diastolic (mm Hg) 82 02/02/2016 [facility] Heart Rate 53 02/02/2016 [facility] Systolic (mm Hg) 136 02/02/2016 [facility] Diastolic (mm Hg) 75 02/02/2016 [facility] Heart Rate 79 02/02/2016 [facility] Respitory Rate 17 02/02/2016 [facility] Temperature Oral (F) 98.2 F 02/02/2016 [facility] Height 180.34 cm 01/19/2016 [facility] Weight 148.182 01/19/2016 [facility] BMI Calculated 45.56 01/19/2016 [facility] Weight 148.182 12/02/2015 [facility] Height 182.88 cm 12/02/2015 [facility] BMI Calculated 44.31 12/02/2015 [facility] Encounters Location Location Encounter Encounter Reason Attending ADM DC Status Source Details Type Number For Provider Date Date Visit [facility] Bedded [id number] [facility] 12/01 12/01 [facility] /2015 [facility] [id number] [facility]31 [facility] Procedures Procedure Code Date Perfomer Comments Source Epidural steroid [id number] [facility] Incision and [id number] [facility] drainage of [facility] abscess of villa Assessment and Plan Assessment and Plan Date Source Extracted from:Title: Clinical Document 02/03/2016 [facility] Author: Vincent Patel MD Date: 02/02/16 Progress Note - Daily [facility] Completed: Jan, 13:05 by Vincent Patel MD RM: 531 - 00, [id number] DEMETRIA ZAMBRANO 35y (: 1980) M Attending: Vincent Patel MD Service : General Surgery Service Reason for Admission: [address], MORBID OBESITY Working DRG: None Documented Code [...] Tot 322 600 -278 01/31 24hr Tot 2574 [id number] Medications (10) Active Scheduled Meds (2): 02/01/16 enoxaparin 30 mg SUB-Q [id number] 02/01/16 ketOROLAC 30 mg IVP Q6H Unscheduled [...] 1,000 mL 1,000 mL 80 ml/hr ASSESSMENT and EXAM NAD RRR Soft, ND, appr TTP, wounds c/d/i PLAN and TREATMENT S/p lap RYGB. Tolerating diet. Pain controlled. Ambulating well. 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 Frequency: 3-5 times per week. Smoking Status Former smoker; Type: Cigarettes; Exposure to Tobacco Smoke None; Cigarette Smoking Last 365 Days No; Reg Smoking Cessation Counseling No Family History No Data Provided for This Section Advance Directives No Data Provided for This Section Functional Status No Data Provided for This Section
--- OUTSIDE RECORDS SUMMARY | 2019-02-11 15:47 | XMS REPORT | Summary of Care ---
:1980 Author Organization [facility] Address [address] [place] [address]- Encounter [facility](BARBARA) [id number] Date(s): 12/02/15 - 12/02/[address] [address]- Discharge Disposition: Home Attending Physician: Vincent Patel MD Admitting Physician: Vincent Patel MD Referring Physician: Vincent Patel MD Vital Signs Most recent to oldest [Reference Range]: 1 Height 182.88 cm (12/02/15 7:45 AM) Weight 148.182 kg (12/02/15 7:45 AM) Body Mass Index 44.31 m2 (12/02/15 7:45 AM) Problem List No data available for this section Allergies, Adverse Reactions, Alerts Substance Reaction Severity Status NKDA Active Medications carisoprodol 350 mg oral tablet 350 mg=1 tab, PO, BID, 0 Refill(s) Start Date: 12/02/15 Status: OrdereddiphenhydrAMINE 12.5 mg, 0.25 mL, Route: IVP, Drug form: INJ, Q6H, Dosing Weight 148.182, kg, PRN Itching, Start date: 12/02/15 8:11:00 CDT, Duration: 30 day, Stop date: 07/06 8:10:00 CDT Notes: (Same as: Benadryl) Start Date: 12/02/15 Stop Date: 12/03/15 Status: DiscontinuedePHEDrine 5 mg, 0.1 mL, Route: IVP, Drug form: INJ, Q5Min, Dosing Weight 148.182, kg, PRN Low Blood Pressure, Start date: 12/02/15 8:11:00 CDT, Duration: 30 day, Stop date: 01/01/16 8:10:00 CDT Notes: (Same as: ePHEDrine Sulfate) Start Date: 12/02/15 Stop Date: 12/03/15 Status: Discontinuedesmolol IV Push 10 mg, 1 mL, Route: IVP, Drug form: INJ, Q5Min, Dosing Weight 148.182, kg, PRN Other -See Comment, Start date: 12/02/15 8:11:00 CDT, Duration: 5 doses or times , Stop date: Limited # of times Notes: (Same as: Brevibloc) Start Date: 12/02/15 Stop Date: 12/03/15 Status: Discontinuedflumazenil 0.2 mg, 2 mL, Route: IVP, Drug form: INJ, PRN, Dosing Weight 148.182, kg, PRN Benzodiazepine Reversal, Initial dose, Start date: 12/02/15 8:11:00 CDT, Duration: 30 day, Stop date: 01/01/16 8:10:00 CDT Notes: (Same as: Romazicon) Start Date: 12/02/15 Stop Date: 12/03/15 Status: DiscontinuedhydrALAZINE 10 mg, 0.5 mL, Route: IVP, Drug form: INJ, Q20Min, Dosing Weight 148.182, kg, PRN Elevated BP, Startdate: 12/02/15 8:11:00 CDT, Duration: 2 doses or times, Stop date: Limited # of times Notes: (Same as: Apresoline)Push over 5 minutes Start Date: 12/02/15 Stop Date: 12/03/15 Status: DiscontinuedHYDROcodone 10 mg oral capsule, extended release 10 mg=1 cap, PO, Q12H, 0 Refill(s) Start Date: 12/02/15 Status: Orderedlabetalol 10 mg, 2 mL, Route: IVP, Drug form: INJ, Q5Min, Dosing Weight 148.182, kg, PRN Elevated BP, Start date: 12/02/15 8:11:00 CDT, Duration: 5 doses or times, Stop date: Limited # of times Notes: (Same as: Normodyne, Trandate)Push over 2 minutes Give bolus over 2-3 minutes. Start Date: 12/02/15 Stop Date: 12/03/15 Status: Discontinuedlisinopril 20 mg oral tablet 20 mg=1 tab, PO, Daily, # 30 tab, 0 Refill(s) Start Date: 12/02/15 Status: Orderedmetoprolol 1 mg, 1 mL, Route: IVP, Drug form: INJ, Q5Min, Dosing Weight 148.182, kg, PRN Other -See Comment, Start date: 12/02/15 8:11:00 CDT, Duration: 5 doses or times , Stop date: Limited # of times Notes: (Same as: Lopressor)Push over 2 minutes Start Date: 12/02/15 Stop Date: 12/03/15 Status: Discontinuednaloxone 0.04 mg, 0.1 mL, Route: IVP, Drug form: INJ, Q2MIN, Dosing Weight 148.182, kg, PRN Narcotic Reversal, Start date: 12/02/15 8:11:00 CDT, Duration: 8 doses or times, Stop date: Limited # of times Notes: Same as Narcan Start Date: 12/02/15 Stop Date: 12/03/15 Status: Discontinuedondansetron 4 mg, 2 mL, Route: IVP, Drug form: INJ, ONCE, Dosing Weight 148.182, kg, PRN Nausea & Vomiting, Start date: 12/02/15 8:11:00 CDT Notes: (Same as: Ysabel) MEDICATION WASTE Product Size: 4 mgProduct Wasted: ___ mg Start Date: 12/02/15 Stop Date: 12/03/15 Status: Discontinuedpromethazine + Sodium Chloride 0.9% IV 50 mL 6.25 mg, 0.25 mL, Route: IVPB, ONCE, Dosing Weight 148.182, kg, PRN Nausea &amp ; Vomiting, Start date: 12/02/15 8:11:00 CDT Notes: Do not give IV push. (Same as: Phenergan) Start Date: 12/02/15 Stop Date: 12/03/15 Status: DiscontinuedSodium Chloride 0.9% IV 500 mL 500 mL, Rate: 125 ml/hr, Infuse over: 4 hr, Route: IV, Dosing Weight 148.182 kg , Total Volume: 500, Start date: 12/02/15 8:11:00 CDT, Duration: 30 day, Stop date: 01/01/16 8:10:00 CDT Start Date: 12/02/15 Stop Date: 12/03/15 Status: Discontinued Results No data available for this section Immunizations No data available for this section Procedures No data available for this section Social History No data available for this section Assessment and Plan No data available for this section
[2019-02-11 16:24] LABS: Absolute Lymphocytes (CBC) 1.9 K/uL (0.7-4.9); Basophils % 0.4 % (0-1.3); Hematocrit 41.7 % (39.6-49.0); Lymphocytes % 15.7 % (15.3-44.8); MPV 7.5 fL (7.6-11.3); RBC Red Blood Cell Count 4.72 M/uL (4.33-5.43)
[2019-02-11] MEDS ORDERED: NA CHLORIDE 0.9% 2,000 ML ONE (16:24)
[2019-02-11] MEDS ORDERED: DIAZEPAM 10 MG/2 ML INJ SYRINGE ONE ×2 (16:24→18:38)
--- NOTE | 2019-02-11 16:29 | RAD REPORT ---
EXAM DESCRIPTION: CT - Head Brain Wo Cont - 02/11/2019 4:20 pm CLINICAL HISTORY: SEIZURE Headache, seizure COMPARISON: No comparisons TECHNIQUE: All CT scans are performed using dose optimization technique as appropriate and may inclu de automated exposure control or mA/KV adjustment according to patient size. FINDINGS: Small vague subcortical area of increased density is seen in the right frontal lobe measur ing 10 mm.Elsewhere, no acute hemorrhage, hydrocephalus or midline shift is evident.No pathologic bra in edema seen. The paranasal sinuses and mastoids are clear. The calvarium is intact. IMPRESSION: Vague area of increased density measuring 10 mm is seen in the subcortical white matter the right frontal lobe. Recommend MRI brain followup assessment for further evaluation.
[2019-02-11 16:49] LABS: BUN Blood Urea Nitrogen 17 mg/dL (7-18); Bicarbonate 28 mmol/L (21-32); Glucose Level 108 mg/dL (74-106); Potassium 3.8 mmol/L (3.5-5.1); Sodium Level 139 mmol/L (136-145); Troponin (Emerg Dept Use Only) < 0.02 ng/mL (0.0-0.045)
[2019-02-11 18:09] LABS: Urine Blood TRACE (NEG); Urine Glucose NEGATIVE (NEG); Urine Protein NEGATIVE (NEG); Urine Specific Gravity 1.015 (1.005-1.030)
[2019-02-11 18:14] LABS: Barbiturates NEGATIVE (NEGATIVE); Benzodiazepines NEGATIVE (NEGATIVE); Cocaine NEGATIVE (NEGATIVE); METHAMPHETAM NEGATIVE (NEGATIVE); Methadone NEGATIVE (NEGATIVE); Opiates POSITIVE (NEGATIVE); Phencyclidine NEGATIVE (NEGATIVE); THC Cannibis NEGATIVE (NEGATIVE)
[2019-02-11] MEDS ORDERED: cloNIDine HCl 0.1 MG TAB ONE (19:46)
--- NOTE | 2019-02-11 20:24 | RAD REPORT ---
EXAM DESCRIPTION: MRI - Brain W/Wo Cont - 02/11/2019 7:46 pm CLINICAL HISTORY: seizure Headache, seizure COMPARISON: Head Brain Wo Cont dated 02/11/2019 TECHNIQUE: Multi-sequence, multiplanar MR imaging of the brain was performed with contrast. FINDINGS: A small intra-axial lesion is present in the right frontal lobe measuring 10 x 7 mm. The l esion is largely hypointense with slight isointensity centrally. There is evidence of adjacent promin ent enhancing vessel and draining veins. Most likely, this represents a small cavernoma with associat ed developmental venous anomaly. No hemorrhage, hydrocephalus, extra-axial fluid collection or midline shift is evident. No additional areas of pathologic post-contrast enhancement seen. No acute CVA seen on diffusion-weighted imaging. 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
[2019-02-11] MEDS ORDERED: LEVETIRACETAM 500 MG/5 ML VIAL IV ONE (21:03)
[2019-02-11] MEDS ORDERED: NA CHLORIDE 0.9% 100 ML IV ONE (21:04)
--- NOTE | 2019-02-11 21:05 | ER ---
Nurse's Notes [facility] Name: Marquise Jhaveri Age: 38 yrs Sex: Male : 1980 Arrival Date: 02/11/2019 Time: 15:49 Bed 4 Private MD: Diagnosis: Seizure Presentation: 02/11 15:53 Presenting complaint: EMS states: pt works at [employer] when co workers noticed him around hj 2:15 pm today; seizing and become unresponsive; that lasted for about 2-3 mins; BP- 180/112; HR- 146; FBS- 77; 2:30 pm pt responsive to verbal stimulus; 2:45 pm- [employer] x3; negative for neuro deficits;. Transition of care: patient was not received from another setting of care. Onset of symptoms was February 11, 2019. Risk Assessment: Do you want to hurt yourself or someone else? Patient reports no desire to harm self or others. Initial Sepsis Screen: Does the patient meet any 2 criteria? No. Patient's initial sepsis screen is negative. Does the patient have a suspected source of infection? No. Patient's initial sepsis screen is negative. Care prior to arrival: None. 15:53 Method Of Arrival: Ambulatory 15:53 Acuity: ARNULFO 2 hj Triage Assessment: 15:58 General: Appears in no apparent distress. uncomfortable, Behavior is calm, cooperative, hj appropriate for age. Pain: Denies pain. Neuro: Level of Consciousness is awake, alert, obeys commands, Oriented to person, place, time, situation, Appropriate for age. Historical: - Allergies: 15:58 No Known Allergies; hj - Home Meds: 15:58 Lisinopril Oral [Active]; hj - PMHx: 15:58 Hypertension; gastric bypass; hj - PSHx: 15:58 lumbar; hj - Immunization history:: Adult Immunizations up to date. - Social history:: Smoking status: Patient/guardian denies using tobacco, Patient uses alcohol. - Ebola Screening: : Patient negative for fever greater than or equal to 101.5 degrees Fahrenheit, and additional compatible Ebola Virus Disease symptoms Patient denies exposure to infectious person Patient denies travel to an Ebola-affected area in the 21 days before illness onset. - Family history:: not pertinent. - Hospitalizations: : No recent hospitalization is reported. Screenin:58 Abuse screen: Denies threats or abuse. Denies injuries from another. Nutritional hj screening: No deficits noted. Tuberculosis screening: No symptoms or risk factors identified. Fall Risk Secondary diagnosis (15 points). Assessment: 15:59 General: Appears in no apparent distress. uncomfortable, Behavior is calm, cooperative, hj appropriate for age. Pain: Denies pain. Neuro: Level of Consciousness is awake, alert, obeys commands, Oriented to person, place, time, situation, Appropriate for age. Neuro: Seizure activity reported prior to arrival. Type of seizure: tonic-clonic seizure. Seizure lasted approximately 3 minutes. Patient is post-ictal at this time. Cardiovascular: Capillary refill < 3 seconds Patient's skin is warm and dry. Respiratory: Airway is patent Respiratory effort is even, unlabored, Respiratory pattern is regular, symmetrical. GI: No signs and/or symptoms were reported involving the gastrointestinal system. : No signs and/or symptoms were reported regarding the genitourinary system. EENT: No signs and/or symptoms were reported regarding the EENT system. Derm: No signs and/or symptoms reported regarding the dermatologic system. Musculoskeletal: No signs and/or symptoms reported regarding the musculoskeletal system. 16:50 Reassessment: food safety officer in room;. hj 17:53 Reassessment: Patient and/or family updated on plan of care and expected duration. Pain hj level reassessed. Patient is alert, oriented x 3, equal unlabored respirations, skin warm/dry/pink. awaiting results and POC;. 18:00 Reassessment: pt asked if pt can take own Rx of Flexeril 10 mg, notified, per MD oneal okay to take one dose of Flexeril 10 mg PO from own stock; added verbal order of Valium 10 mg IV 2nd dose;. 18:47 Reassessment: Patient and/or family updated on plan of care and expected duration. Pain hj level reassessed. Patient is alert, oriented x 3, equal unlabored respirations, skin warm/dry/pink. awaiting POC;. 19:08 General: Appears in no apparent distress. comfortable, Behavior is calm, cooperative, jd3 appropriate for age. Pain: Denies pain. Neuro: Level of Consciousness is awake, alert, obeys commands, Oriented to person, place, time, situation, Speech is normal, Pupils are PERRLA, Denies weakness blurred vision numbness headache diplopia. Cardiovascular: Denies chest pain, shortness of breath, Capillary refill < 3 seconds Patient's skin is warm and dry. Respiratory: Airway is patent Respiratory effort is even, unlabored, Respiratory pattern is regular, symmetrical, Denies cough, shortness of breath. GI: Abdomen is round non-distended, Patient currently denies constipation, diarrhea, nausea, vomiting. : No signs and/or symptoms were reported regarding the genitourinary system. EENT: No signs and/or symptoms were reported regarding the EENT system. Derm: Skin is intact, Skin is dry, Skin is normal, Skin temperature is warm. Musculoskeletal: Circulation, motion, and sensation intact. Range of motion: intact in all extremities. 20:17 Reassessment: Patient appears in no apparent distress at this time. No changes from [facility] previously documented assessment. Patient and/or family updated on plan of care and expected duration. Pain level reassessed. Patient is alert, oriented x 3, equal unlabored respirations, skin warm/dry/pink. 21:24 Reassessment: Patient appears in no apparent distress at this time. Patient and/or jd3 family updated on plan of care and expected duration. Pain level reassessed. Patient is alert, oriented x 3, equal unlabored respirations, skin warm/dry/pink. hospitalist at bedside. awaiting admission. Vital Signs: 15:49 BP 172 / 107; Pulse 143; Resp 20; Temp 98.1(TE); Pulse Ox 98% on R/A; Weight 114.31 kg; hj Height 5 ft. 11 in. (180.34 cm); Pain 0/10; 16:34 BP 156 / 98; Pulse 135; Resp 18; Pulse Ox 98% on R/A; hj 17:52 BP 157 / 95; Pulse 125; Resp 18; Pulse Ox 100% on R/A; hj 18:47 BP 156 / 88; Pulse 127; Resp 18; Pulse Ox 100% on R/A; hj 19:08 BP 152 / 102; Pulse 121; Resp 19 S; Pulse Ox 98% on R/A; Pain 0/10; jd3 20:17 BP 152 / 100; Pulse 107; Resp 16 S; Pulse Ox 99% on R/A; jd3 21:25 BP 144 / 97; Pulse 101; Resp 16 S; Pulse Ox 98% on R/A; jd3 22:55 BP 150 / 88; Pulse 96; Resp 16 S; Pulse Ox 98% on R/A; Pain 0/10; jd3 15:49 Body Mass Index 35.15 (114.31 kg, 180.34 cm) hj Anthony Coma Score: 15:58 Eye Response: spontaneous(4). Verbal Response: oriented(5). Motor Response: obeys hj commands(6). Total: 15. ED Course: 15:49 Patient arrived in ED. hj 15:52 Emre Damon MD is Attending Physician. rn 15:52 Carlin Britton RN is Primary Nurse. hj 15:56 Triage completed. hj 15:58 Arm band placed on right wrist. hj 15:59 Patient has correct armband on for positive identification. Placed in gown. Bed in low hj position. Call light in reach. Side rails up X2. Adult w/ patient. 15:59 Seizure precautions initiated. hj 16:00 Initial lab(s) drawn, by ED staff, sent to lab. Inserted saline lock: 20 gauge in right hj antecubital area, using aseptic technique. Blood collected. 16:10 EKG done, by utility locate technician. reviewed by Emre Damon MD. sm3 16:20 CT Head Brain wo Cont In Process Unspecified. EDMS 17:53 Urine Drug Screen Sent. hj 18:56 Justo Garza PA is PHCP. jr8 19:47 Brain W/Wo Cont In Process Unspecified. EDMS 21:04 Soren Llamas DO is Hospitalizing Provider. jr8 22:55 No provider procedures requiring assistance completed. Patient admitted, IV remains in jd3 place. Administered Medications: 16:03 Drug: NS 0.9% 1000 ml Route: IV; Rate: 1000 ml; Site: right antecubital; hj 16:03 Drug: NS 0.9% 1000 ml Route: IV; Rate: 1000 ml; Site: right antecubital; hj 16:03 Drug: Valium 10 mg Route: IVP; Site: right antecubital; hj 16:34 Follow up: Response: No adverse reaction hj 18:19 Drug: Valium 10 mg Route: IVP; Site: right antecubital; hj 18:21 Follow up: Response: No adverse reaction 19:30 Drug: cloNIDine 0.2 mg Route: PO; jd3 20:30 Follow up: Response: No adverse reaction jd3 20:56 Drug: Keppra 1000 mg Route: IV; Rate: calculated rate; Site: right antecubital; jd3 21:33 Follow up: Response: No adverse reaction; IV Status: Completed infusion; IV Intake: jd3 100ml 21:02 Drug: [place] 5 mg-325 mg 1 tabs Route: PO; jd3 21:33 Follow up: Response: No adverse reaction; Pain is decreased jd3 Intake: 21:33 IV: 100ml; Total: 100ml. jd3 Output: 19:33 Urine: 1000ml (Voided); Total: 1000ml. Outcome: 21:04 Decision to Hospitalize by Provider. will 22:56 Admitted to Med/surg accompanied by nurse, via wheelchair, room 412, with chart, Report jd3 called to Annamarie HIGGINBOTHAM 22:56 Condition: stable 22:56 Instructed on the need for admit, Demonstrated understanding of instructions. 22:57 Patient left the ED. joe Signatures: Dispatcher [employer] EDMS Antonieta Pepper RN ANAHY Emre Damon MD MD rn Roszak, Josh, PA PA jr8 Carlin Britton RN RN hj Davies, Jonathon, RN RN jd3 Montes, Shakira 3
--- NOTE | 2019-02-11 21:05 | EDPHYS ---
Physician Documentation [facility] Name: Marquise Jhaveri Age: 38 yrs Sex: Male : 1980 Arrival Date: 02/11/2019 Time: 15:49 Bed 4 Private MD: ED Physician Emre Damon HPI: 02/11 16:04 This 38 yrs old Male presents to ER via Ambulatory with complaints of Seizure. rn 16:04 The patient presents the episode(s) was witnessed, by a bystander. Character of rn seizure(s): Loss of consciousness: it is not known if the patient experienced loss of consciousness, Motor activity: generalized, Incontinence: none, Apnea: the patient did not experience apnea. Seizure onset: just prior to arrival. Associated injury: The patient did not suffer any apparent associated injury. Current symptoms: headache. The patient has not experienced similar symptoms in the past. EMS reports witnessed seizure, single, lasted approx 2-3 min, no injury, felt fine prior to and this AM, reports decreased water intake, + daily drinker with several glasses of whiskey each night, last drink last night. No fever or infectious symptoms. Feels sore but no focal neurological complaints. No chest pain/palpitations/sob/abd pain/vomiting/diarrhea.. Historical: - Allergies: 15:58 No Known Allergies; hj - Home Meds: 15:58 Lisinopril Oral [Active]; hj - PMHx: 15:58 Hypertension; gastric bypass; hj - PSHx: 15:58 lumbar; hj - Immunization history:: Adult Immunizations up to date. - Social history:: Smoking status: Patient/guardian denies using tobacco, Patient uses alcohol. - Ebola Screening: : Patient negative for fever greater than or equal to 101.5 degrees Fahrenheit, and additional compatible Ebola Virus Disease symptoms Patient denies exposure to infectious person Patient denies travel to an Ebola-affected area in the 21 days before illness onset. - Family history:: not pertinent. - Hospitalizations: : No recent hospitalization is reported. ROS: 16:04 Constitutional: Negative for fever, chills, and weight loss, Eyes: Negative for injury, rn pain, redness, and discharge, Neck: Negative for injury, pain, and swelling, Cardiovascular: Negative for chest pain, palpitations, and edema, Respiratory: Negative for shortness of breath, cough, wheezing, and pleuritic chest pain, Abdomen/GI: Negative for abdominal pain, nausea, vomiting, diarrhea, and constipation, MS/Extremity: Negative for injury and deformity, Skin: Negative for injury, rash, and discoloration, Neuro: Negative for weakness, numbness, tingling Exam: 16:04 Constitutional: This is a well developed, well nourished patient who is awake, alert, rn appears anxious Head/Face: Normocephalic, atraumatic. ENT: dry MM Cardiovascular: Tachycardic, regular, no murmur Respiratory: Mild tachypnea, clear bilateral breath sounds, no wheezing Abdomen/GI: soft, non-tender Skin: Warm, dry. Normal color with no rashes, no lesions, and no evidence of cellulitis. MS/ Extremity: Pulses equal, no cyanosis. Neurovascular intact. Full, normal range of motion. Equal circumference. Neuro: Awake and alert, GCS 15, oriented to person, place, time, and situation. Cranial nerves II-XII grossly intact. Motor strength 5/5 in all extremities. Sensory grossly intact. Cerebellar exam normal. Mild tremors of extremities with mild tongue fasciculations. Vital Signs: 15:49 BP 172 / 107; Pulse 143; Resp 20; Temp 98.1(TE); Pulse Ox 98% on R/A; Weight 114.31 kg; hj Height 5 ft. 11 in. (180.34 cm); Pain 0/10; 16:34 BP 156 / 98; Pulse 135; Resp 18; Pulse Ox 98% on R/A; hj 17:52 BP 157 / 95; Pulse 125; Resp 18; Pulse Ox 100% on R/A; hj 18:47 BP 156 / 88; Pulse 127; Resp 18; Pulse Ox 100% on R/A; hj 19:08 BP 152 / 102; Pulse 121; Resp 19 S; Pulse Ox 98% on R/A; Pain 0/10; jd3 20:17 BP 152 / 100; Pulse 107; Resp 16 S; Pulse Ox 99% on R/A; jd3 21:25 BP 144 / 97; Pulse 101; Resp 16 S; Pulse Ox 98% on R/A; jd3 22:55 BP 150 / 88; Pulse 96; Resp 16 S; Pulse Ox 98% on R/A; Pain 0/10; jd3 15:49 Body Mass Index 35.15 (114.31 kg, 180.34 cm) Anthony Coma Score: 15:58 Eye Response: spontaneous(4). Verbal Response: oriented(5). Motor Response: obeys commands(6). Total: 15. MDM: 15:52 Patient medically screened. rn 16:48 ED course: Pt with diminished density frontal lobe, MRI ordered. now states wet rn the bed last night and this AM, possible seizures at night given this information. And also reports has been having headache but been attributing it to his BP.. 20:55 Data reviewed: vital signs, nurses notes, lab test result(s), EKG, radiologic studies, jr8 CT scan, MRI. Data interpreted: Pulse oximetry: on room air is 99 %. Interpretation: normal. Counseling: I had a detailed discussion with the patient and/or guardian regarding: the historical points, exam findings, and any diagnostic results supporting the discharge/admit diagnosis, lab results, radiology results, the need for further work-up and treatment in the hospital. ED course: Dr. Saunders consulted and will see patient. Will get EEG in the AM . 02/11 16:02 Order name: CBC with Diff; Complete Time: 17:36 rn 02/11 16:02 Order name: Basic Metabolic Panel; Complete Time: 17:36 rn 02/11 16:02 Order name: Urine Drug Screen; Complete Time: 18:26 rn 02/11 16:02 Order name: Troponin (emerg Dept Use Only); Complete Time: 17:36 rn 02/11 16:04 Order name: ETOH Level; Complete Time: 16:41 rn 02/11 17:53 Order name: Urine Dipstick--Ancillary (enter results); Complete Time: 18:26 bd 02/11 16:02 Order name: CT Head Brain wo Cont; Complete Time: 16:41 rn 02/11 19:47 Order name: Brain W/Wo Cont; Complete Time: 20:35 EDMS 02/11 16:02 Order name: IV Start; Complete Time: 16:13 rn 02/11 16:02 Order name: EKG; Complete Time: 16:04 rn 02/11 16:02 Order name: EKG - Nurse/Tech; Complete Time: 16:34 rn Administered Medications: 16:03 Drug: NS 0.9% 1000 ml Route: IV; Rate: 1000 ml; Site: right antecubital; hj 16:03 Drug: NS 0.9% 1000 ml Route: IV; Rate: 1000 ml; Site: right antecubital; hj 16:03 Drug: Valium 10 mg Route: IVP; Site: right antecubital; hj 16:34 Follow up: Response: No adverse reaction hj 18:19 Drug: Valium 10 mg Route: IVP; Site: right antecubital; hj 18:21 Follow up: Response: No adverse reaction hj 19:30 Drug: cloNIDine 0.2 mg Route: PO; jd3 20:30 Follow up: Response: No adverse reaction jd3 20:56 Drug: Keppra 1000 mg Route: IV; Rate: calculated rate; Site: right antecubital; jd3 21:33 Follow up: Response: No adverse reaction; IV Status: Completed infusion; IV Intake: jd3 100ml 21:02 Drug: [place] 5 mg-325 mg 1 tabs Route: PO; jd3 21:33 Follow up: Response: No adverse reaction; Pain is decreased jd3 Disposition: 02/11/19 21:04 Hospitalization ordered by Soren Llamas for Inpatient Admission. Preliminary diagnosis is Seizure . - Bed requested for Telemetry/MedSurg (Inpatient). - Status is Inpatient Admission. jd3 - Condition is Stable. - Problem is new. - Symptoms have improved. UTI on Admission? No Addendum: 02/13/2019 19:13 Co-signature as Attending Physician, Emre Damon MD. r n Signatures: Dispatcher [facility] Emre Damon MD MD rn Roszak, Josh, PA PA jr8 Carlin Britton RN RN hj Garcia, Cindy, RN RN cg Davies, Jonathon, RN RN jd3 Corrections: (The following items were deleted from the chart) 02/11 19:47 17:43 Brain With Cont ordered. [facility] 22:09 21:04 Hospitalization Ordered by Soren Llamas DO for Inpatient Admission. Preliminary cg diagnosis is Seizure . Bed requested for Telemetry/MedSurg (Inpatient). Status is Inpatient Admission. Condition is Stable. Problem is new. Symptoms have improved. UTI on Admission? No. jr8 22:57 22:09 02/11/2019 21:04 Hospitalization Ordered by Soren Llamas DO for Inpatient jd3 Admission. Preliminary diagnosis is Seizure . Bed requested for Telemetry/MedSurg (Inpatient). Status is Inpatient Admission. Condition is Stable. Problem is new. Symptoms have improved. UTI on Admission? No. cg
[2019-02-11] MEDS ORDERED: HYDROCODONE/APAP 5/325 MG TAB ONE (21:17)
--- NOTE | 2019-02-11 21:56 | P.HP ---
Certification for Inpatient Patient admitted to: Inpatient With expected LOS: >2 Midnights Patient will require the following post-hospital care: None Practitioner: I am a practitioner with admitting privileges, knowledge of patient current condition, hospital course, and medical plan of care. Services: Services provided to patient in accordance with Admission requirements found in Title 42 Section 412.3 of the Code of Federal Regulations Patient History Date of Service: 02/11/19 Primary Care Provider: Estella Estrella NP Reason for admission: new onset seizures History of Present Illness: 38 yo CM presented to the ER with new onset seizures. He was at work with coworkers when he started to have a tonic clonic seizure. It last about 3 minutes. EMS was called and transferred him to the ER. He reported fatigue after the episode. He has no prior seizures. He has mentioned some jerking like features to the legs and arms over the last couple of months. He also reported some bedwetting last night and one month ago which was unusual for him. He reports that his grandmother has a history of Alzheimers and seizures. In the ER he was stabilized. He was started on Keppra IV. 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 No CVA noted. No hemorrhage, hydrocephalus or midline shift evident. Case was discussed with Neurology. Neurology recommended admission and initiation of anti seizure medication. Patient was admitted for further evaluation. When I saw the patient ER, he appeared stable. He reports history of hypertension, alcohol abuse, and chronic pain. He is without any significant chest pain, shortness of breath. No significant fever. He does report some tension headaches at time. Allergies No Known Allergies Allergy (Unverified 05/31/12 20:12) Home medications list reviewed: Yes - Past Medical/Surgical History Diabetic: No -: Hypertension -: Chronic pain -: Alcohol abuse -: History of gastric bypass -: Gastric bypass Psychosocial/ Personal History: Patient is - Family History Mother -: Seizures, Other (see notes) (Grandmother with Alzheimer's dementia and seizures) - Social History Smoking Status: Current some day smoker Smoking therapy provided: Yes Patient receptive to therapy: Yes Alcohol use: Yes CD- Drugs: No Caffeine use: Yes Place of Residence: Home Review of Systems General: As per HPI Eyes: Unremarkable ENT: Unremarkable Respiratory: Unremarkable Cardiovascular: Unremarkable Gastrointestinal: Unremarkable Genitourinary: Unremarkable Musculoskeletal: Unremarkable Integumentary: Unremarkable Neurological: Seizures, As per HPI Lymphatics: Unremarkable Physical Examination - Physical Exam General: Alert, In no apparent distress, Oriented x3, Cooperative HEENT: Atraumatic, Normocephalic, PERRLA, Mucous membr. moist/pink, EOMI Neck: Supple, No Thyromegaly Respiratory: Clear to auscultation bilaterally, Normal air movement Cardiovascular: Normal pulses, Regular rate/rhythm Gastrointestinal: Normal bowel sounds, Soft and benign, Non-distended, No tenderness, No masses, No rebound, No guarding Musculoskeletal: No erythema, No tenderness, No warmth Integumentary: No tenderness/swelling, No erythema, No warmth, No cyanosis Neurological: Normal speech, Normal strength at 5/5 x4 extr, Normal tone, Normal affect - Studies Laboratory Data (last 24 hrs) 02/11/19 16:10: Sodium 139, Potassium 3.8, BUN 17, Creatinine 1.08, Glucose 108 H 02/11/19 16:10: WBC 12.2 H, Hgb 14.0, Hct 41.7, Plt Count 295 Assessment and Plan - Plan Impression: New onset seizures with MRI showing 10 x 7 mm cavernoma to the right frontal lob HTN, uncontrolled Alcohol abuse Chronic pain Plan: New onset seizures with MRI showing 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 Patient started on Keppra IV 500 mg BID. ER spoke to Neurology concerning the patient. Neurology will see the patient tomorrow. Will order EEG to further evaluate. Will monitor for further seizures. Seizure precautions in place. Ativan available if patient continues to have seizures. Education on seizures addressed. Patient will be counseled at length concerning restrictions prior to discharge. Patient will likely need to remain in the hospital for the next 24 -48 hr to monitor stability. Await further recommendations from neurology. HTN, uncontrolled: Blood pressures have been uncontrolled due to lack of medication related to lack of insurance. Patient previously on lisinopril. Will start lisinopril 20 mg 1 pill twice daily for better control. Will continue monitor and adjust appropriately. Alcohol abuse: Will address lifestyle modification education. Cessation education addressed in detail. Chronic pain: Will continue with his medication. Discharge Plan: Home Plan to discharge in: 48 Hours - Advance Directives Does patient have a Living Will: No Does patient have a Durable POA for Healthcare: No - Code Status/Comfort Care Code Status Assessed: Yes (Patient is full code) Time Spent Managing Pts Care (In Minutes): 55
[2019-02-11] MEDS ORDERED: LORazepam 2 MG/ML VIAL IV PRN (23:18)
[2019-02-11] MEDS ORDERED: ACETAMINOPHEN 500 MG TAB PO PRN (23:18)
[2019-02-11] MEDS ORDERED: ONDANSETRON 4 MG/2 ML VIAL IV PRN (23:18)
[2019-02-11 23:55] VITALS: BMI 42.3
[2019-02-12 03:58] LABS: Urine Appearance CLEAR; Urine Bilirubin NEGATIVE (NEG); Urine Blood NEGATIVE (NEG); Urine Color YELLOW; Urine Glucose NEGATIVE (NEG); Urine Protein NEGATIVE (NEG)
[2019-02-12 04:20] LABS: Urine Microscopic Reflex NO UMIC
[2019-02-12 04:25] LABS: Basophils % 0.5 % (0-1.3); Hematocrit 35.6 % (39.6-49.0); Lymphocytes % 39.3 % (15.3-44.8); MPV 7.4 fL (7.6-11.3); RBC Red Blood Cell Count 4.02 M/uL (4.33-5.43)
[2019-02-12 04:51] LABS: Magnesium 2.3 mg/dL (1.8-2.4); Potassium 3.9 mmol/L (3.5-5.1); Thyroid Stimulating Hormone 0.551 uIU/mL (0.360-3.740)
[2019-02-12] MEDS ORDERED: POTASSIUM CL SA 10 MEQ TAB PO ONE (05:00)
[2019-02-12] MEDS: HYDROCODONE/APAP 5/325 MG TAB PO PRN ×3 (08:14→20:50)
[2019-02-12] MEDS: FAMOTIDINE 20 MG TAB PO SCH ×2 (08:16→20:51)
[2019-02-12] MEDS: LISINOPRIL 20 MG TAB PO SCH ×2 (08:16→20:51)
[2019-02-12] MEDS: ENOXAPARIN 40 MG/0.4 ML SQ SCH (08:17)
[2019-02-12] MEDS: levETIRAcetam 500 MG in NA CHLORIDE 0.9% 100 ML IV SCH ×2 (10:28→20:52)
--- NOTE | 2019-02-12 11:23 | EKG ---
Test Date: 2019-02-11 Test Time: 16:07:55 Belt Tender: TERESA MEASUREMENT RESULTS: Intervals: Rate: 144 WI: 126 QRSD: 88 QT: 280 QTc: 433 [place]: P: 46 WI: 126 QRS: 7 T: 51 INTERPRETIVE STATEMENTS: Sinus tachycardia Otherwise normal ECG No previous ECG available for comparison Electronically Signed On 02-12-19 11:21:18 CDT by Mynor Brennan
--- NOTE | 2019-02-12 12:10 | ECHO ---
HEIGHT: 5 ft 6 in WEIGHT: 261 lb 14.4 oz DATE OF STUDY: 02/12/[address]: Soren Llamas DO 2-DIMENSIONAL: YES M.MODE: YES DOPPLER: YES COLOR FLOW: YES TDS: NO PORTABLE: NO DEFINITY: NO BUBBLE STUDY: NO DIAGNOSIS: HYPERTENSION CARDIAC HISTORY: CATHERIZATION: NO SURGERY: NO PROSTHETIC VALVE: NO PACEMAKER: NO MEASUREMENTS (cm) DIASTOLIC (NORMALS) SYSTOLIC (NORMALS) IVSd 1.2 (0.6-1.2) LA Diam 2.6 (1.9-4.0) LVEF 59% LVIDd 2.9 (3.5-5.7) LVIDs 2.0 (2.0-3.5) %FS 30% LVPWd 1.1 (0.6-1.2) Ao Diam 3.1 (2.0-3.7) 2 DIMENSIONAL ASSESSMENT: RIGHT ATRIUM: NORMAL LEFT ATRIUM: NORMAL RIGHT VENTRICLE: NORMAL LEFT VENTRICLE: NORMAL TRICUSPID VALVE: NORMAL MITRAL VALVE: NORMAL PULMONIC VALVE: NORMAL AORTIC VALVE: NORMAL PERICARDIAL EFFUSION: NONE AORTIC ROOT: NORMAL LEFT VENTRICULAR WALL MOTION: NORMAL. DOPPLER/COLOR FLOW: NORMAL. COMMENTS: NORMAL 2D ECHO WITH DOPPLER. NORMAL LEFT VENTRICULAR SIZE AND FUNCTION. NO WALL MOTION ABNORMALITY. TECHNOLOGIST: JENNIFER MENA
--- NOTE | 2019-02-12 15:53 | P.PN ---
Subjective Date of Service: 02/12/19 Primary Care Provider: Estella Estrella NP Chief Complaint: new onset seizures Subjective: Improving Patient seen and examined at bedside. No family at bedsdie. Chart reviewed and case discussed with nursing staff. Reports no further seizure episodes overnight. No complaints this am. No acute events noted overnight. Review of Systems 10-point ROS is otherwise unremarkable Physical Examination - Vital Signs Temperature: 97.5 F Blood Pressure: 112/60 Pulse: 68 Respirations: 18 Pulse Ox (%): 100 - Physical Exam General: Alert, In no apparent distress, Oriented x3 HEENT: Atraumatic, PERRLA, EOMI Neck: Supple, JVD not distended Respiratory: Clear to auscultation bilaterally, Normal air movement Cardiovascular: Regular rate/rhythm, Normal S1 S2 Gastrointestinal: Normal bowel sounds, No tenderness Musculoskeletal: No tenderness Integumentary: No rashes Neurological: Normal speech, Normal tone, Normal affect Lymphatics: No axilla or inguinal lymphadenopathy - Studies Laboratory Data (last 24 hrs) 02/11/19 16:10: Sodium 139, Potassium 3.8, BUN 17, Creatinine 1.08, Glucose 108 H 02/11/19 16:10: WBC 12.2 H, Hgb 14.0, Hct 41.7, Plt Count 295 Assessment And Plan - Current Problems (Diagnosis) (1) Seizure Current Visit: Yes Status: Acute Plan: New onset seizure; likely secondary to cavernoma - We will continue keppra, IV 500 mg BID - Neurology consulted, pending recommendations. - EEG ordered, pending. - Continue to monitor patient for further seizure episodes. PRN ativvan if needed. (2) Cavernoma Current Visit: Yes Status: Acute Plan: Noted on MRI, - Pending neurology evaluation and recommendations. (3) Hypertension Current Visit: Yes Status: Acute Plan: uncontrolled likely secondary to lack of medications related to lack of insurance. - Continue lisinopril 20 mg BID at this time. - Monitor and adjust medications as needed. Qualifiers: Hypertension type: essential hypertension Qualified Code(s): I10 - Essential (primary) hypertension (4) Alcohol abuse Current Visit: Yes Status: Acute Plan: Will address lifestyle modification education. Cessation education addressed in detail. (5) Chronic pain Current Visit: No Status: Chronic Qualifiers: Chronic pain type: other chronic pain Qualified Code(s): G89.29 - Other chronic pain - Plan Disposition: pending neurology evaluation and recommendations.
[2019-02-12] MEDS ORDERED: IBUPROFEN 200 MG TAB PO PRN (16:43)
[2019-02-12] MEDS: CYCLOBENZAPRINE 10 MG TAB PO SCH ×2 (17:50→20:57)
[2019-02-12 21:19] VITALS: O2SAT 96
[2019-02-13] MEDS ORDERED: CYCLOBENZAPRINE 10 MG TAB PO SCH (05:00)
[2019-02-13] MEDS: HYDROCODONE/APAP 5/325 MG TAB PO PRN (05:47)
[2019-02-13 07:01] LABS: Absolute Lymphocytes (CBC) 1.8 K/uL (0.7-4.9); Basophils % 0.4 % (0-1.3); Hematocrit 37.2 % (39.6-49.0); Lymphocytes % 20.1 % (15.3-44.8); MPV 7.4 fL (7.6-11.3); RBC Red Blood Cell Count 4.19 M/uL (4.33-5.43)
[2019-02-13 07:12] LABS: BUN Blood Urea Nitrogen 14 mg/dL (7-18); Bicarbonate 28 mmol/L (21-32); Glucose Level 88 mg/dL (74-106); Magnesium 2.1 mg/dL (1.8-2.4); Potassium 4.2 mmol/L (3.5-5.1); Sodium Level 142 mmol/L (136-145)
[2019-02-13] MEDS: LISINOPRIL 20 MG TAB PO SCH (08:39)
[2019-02-13] MEDS: FAMOTIDINE 20 MG TAB PO SCH (08:39)
[2019-02-13] MEDS: ENOXAPARIN 40 MG/0.4 ML SQ SCH (08:39)
[2019-02-13] MEDS: levETIRAcetam 500 MG in NA CHLORIDE 0.9% 100 ML IV SCH (09:27)
[2019-02-13] MEDS ORDERED: HYDROCODONE/APAP 5/325 MG TAB PO PRN (10:33)
--- NOTE | 2019-02-13 11:09 | EEG ---
CHART: [id number] TEST ID#: [id number] DATE OF STUDY: 02/12/2019 THE EEG WAS RECORDED PORTABLE IN THE PATIENTS ROOM ON A 17 CHANNEL MACHINE. ELECTRODES WERE APPLIED IN THE USUAL MANNER USING THE INTERNATIONAL 10-20 SYSTEM. THE WAKING BACKGROUND RHYTHM IN THIS RECORD CONSISTS OF VERY WELL DEVELOPED AND WELL ORGANIZED WAVES OF 10 HZ., MAXIMAL IN THE POSTERIOR HEAD REGIONS WHICH ATTENUATE NORMALLY WITH EYE OPENING. LOW-VOLTAGE 18-22 HZ ACTIVITY IS EXPRESSED IN THE FRONTAL REGIONS. THERE ARE NO FOCAL OR LATERALIZING FEATURES. NO EPILEPTIFORM ACTIVITY APPEARS. SLEEP OCCURRED NATURALLY. IN ADDITION NORMAL SLEEP PATTERNS ARE PRESENT. HYPERVENTILATION WAS NOT PERFORMED. PHOTIC STIMULATION PRODUCED FAIR DRIVING BILATERALLY. IMPRESSION: NORMAL EEG FOR THE AGE OF THE PATIENT IN [place], DROWSINESS AND SLEEP.
--- NOTE | 2019-02-13 12:29 | P.DS ---
Admission Date: 02/11/19 Discharge Date: 02/13/19 Primary Care Provider: Estella Estrella NP Disposition: ROUTINE DISCHARGE Discharge Condition: GOOD Reason for Admission: new onset seizures Consultations: Neurology Procedures: EEG - Problems (1) Seizure Current Visit: Yes Status: Acute (2) Cavernoma Current Visit: Yes Status: Acute (3) Hypertension Current Visit: Yes Status: Acute Qualifiers: Hypertension type: essential hypertension Qualified Code(s): I10 - Essential (primary) hypertension (4) Alcohol abuse Current Visit: Yes Status: Acute (5) Chronic pain Current Visit: No Status: Chronic Qualifiers: Chronic pain type: other chronic pain Qualified Code(s): G89.29 - Other chronic pain Brief History of Present Illness: 38 yo CM presented to the ER with new onset seizures. He was at work with coworkers when he started to have a tonic clonic seizure. It last about 3 minutes. EMS was called and transferred him to the ER. He reported fatigue after the episode. He has no prior seizures. He has mentioned some jerking like features to the legs and arms over the last couple of months. He also reported some bedwetting last night and one month ago which was unusual for him. He reports that his grandmother has a history of Alzheimers and seizures. In the ER he was stabilized. He was started on Keppra IV. 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 No CVA noted. No hemorrhage, hydrocephalus or midline shift evident. Case was discussed with Neurology. Neurology recommended admission and initiation of anti seizure medication. Patient was admitted for further evaluation. When I saw the patient ER, he appeared stable. He reports history of hypertension, alcohol abuse, and chronic pain. He is without any significant chest pain, shortness of breath. No significant fever. He does report some tension headaches at time. Hospital Course: Patient was admitted for new onset seizure, likely secondary to CT were normal. He was started on IV Keppra. Neurology was consulted, an EEG was done. He had no further seizure episodes throughout the hospitalization. He did have a 10 mm cavernoma noted on his MRI. Neurology evaluated patient, cleared for discharge on Keppra 500 mg b.i.d. with outpatient follow up for ambulatory video EEG monitoring. His blood pressure was elevated throughout the stay. Per patient, he was not on any medications due to lack of insurance. He was started on lisinopril, increased to 20 mg twice a day. He was discharged on 20 mg of lisinopril twice a day. This diagnoses and treatment plan explained to him, all questions were answered. Patient and verbalized understanding. They were discharged home in a safe and stable manner after he was cleared for discharge by neurology. Vital Signs/Physical Exam: Temp Pulse Resp BP Pulse Ox 98.9 F 85 16 145/86 H 100 02/13/19 04:00 02/13/19 08:39 02/13/19 04:00 02/13/19 08:39 02/13/19 04:00 General: Alert, In no apparent distress, Oriented x3 HEENT: Atraumatic, PERRLA, EOMI Neck: Supple, JVD not distended Respiratory: Clear to auscultation bilaterally, Normal air movement Cardiovascular: Regular rate/rhythm, Normal S1 S2 Gastrointestinal: Normal bowel sounds, No tenderness Musculoskeletal: No tenderness Integumentary: No rashes Neurological: Normal speech, Normal tone, Normal affect Lymphatics: No axilla or inguinal lymphadenopathy Laboratory Data at Discharge: WBC 8.8 K/uL (4.3-10.9) D 02/13/19 06:38 Hgb 12.9 g/dL (13.6-17.9) L 02/13/19 06:38 Hct 37.2 % (39.6-49.0) L 02/13/19 06:38 Plt Count 239 K/uL (152-406) 02/13/19 06:38 Sodium 142 mmol/L (136-145) 02/13/19 06:30 Potassium 4.2 mmol/L (3.5-5.1) 02/13/19 06:30 BUN 14 mg/dL (7-18) 02/13/19 06:30 Creatinine 0.94 mg/dL (0.55-1.3) 02/13/19 06:30 Glucose 88 mg/dL (74-106) 02/13/19 06:30 Magnesium 2.1 mg/dL (1.8-2.4) 02/13/19 06:30 Triglycerides 285 mg/dL (<150) H 02/12/19 03:41 Cholesterol 178 mg/dL (<200) 02/12/19 03:41 HDL Cholesterol 47 mg/dL (40-60) 02/12/19 03:41 Cholesterol/HDL Ratio 3.79 02/12/19 03:41 Home Medications: Cyclobenzaprine [Flexeril*] 1 tab PO Q8H 02/11/19 Hydrocodone/Acetaminophen [Hydrocodone-Acetamin 5-325 mg] 1 tab PO Q6H PRN 02/11 Levetiracetam [Keppra] 500 mg PO BID #60 tablet 02/13/19 Lisinopril [Prinivil*] 20 mg PO BID #60 tab 02/13/19 New Medications: Levetiracetam [Keppra] 500 mg PO BID #60 tablet Lisinopril [Prinivil*] 20 mg PO BID #60 tab Patient Discharge Instructions: Please follow up with your primary care physician in 2-3 days. Please follow up with neurology, information provided to you. New medications: Keppra 500 mg twice a day. Please return to the emergency room for worsening symptoms. Diet: AHA Activity: Seizure precaution Followup: Isael Saunders MD [ASSOCIATE-ACTIVE - CAN ADMIT] - 1 Week Time spent managing pt's care (in minutes): 55
[2019-02-13 12:39] VITALS: BP 127/81; TEMP 97.8
--- NOTE | 2019-02-13 18:00 | CON ---
Reason For Consultation: Consultation was called because of seizure that is new onset. History Of Present Illness: Mr. Jhaveri is a 38-year-old right-handed patient with hypertensi on and history of gastric bypass surgery, who was at work when the seizure occurred. He said in the months leading up to the seizure, he has been very stressed after a loss of job and now a new job wit [employer] where he has to do lots of sitting, planning, and computer work in addition to havin [employer] to take care of his who is sick and other family members and his children as well. He also ad mits to drinking at least 3-4 mixed drinks per night; using caffeine boosting drinks to stay awake; a nd having very little sleep, such as 2-3 hours of sleep at night over several weeks. He has also bee n vaping, smoking, and chewing tobacco. He said he recalls being at work; had taken 2 of the boostin g drinks (each one had 300 mg of caffeine); chewed a round of tobacco; and then took a hit of his tob accoless vapor, actually the vapor cigarettes which were nontobacco. Then, his right hand began marsha ing. Co-worker said the hand shaking spread to involve the entire body. He lost consciousness. The y eased him to the floor and he continued shaking his arms and legs unresponsively for perhaps a cade te or so. They put a spoon in his mouth. No one knew not to do that. He had some tongue biting, bu t not sure about loss of urine control. He was brought into [facility], where his head CT s can identified an area of increased signal density of 10 mm in the subcortical white matter in the [facility] frontal lobe. 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 His laboratory studies showed a mildly checo vated white blood cell count of 12.2 with essentially slightly elevated neutrophils of 7.9. They wer e otherwise unremarkable. Chemistries were essentially unremarkable. Glucose 108. TSH 0.55, free T 4 0.74. Cholesterol panel unremarkable. Urinalysis showed a trace of blood, and urine toxicology wa s positive for opiates, which he says he takes [place] between 5 and 10 for chronic back pain. Sin ce his recovery from the seizure, which was around an hour of postictal confusion, he has had no furt her events. He was loaded with Keppra in the emergency room and put on 500 mg twice daily. Past Medical History: As indicated. Allergies: NO KNOWN DRUG ALLERGIES. Home Medications: Lisinopril. Past Surgical History: He has had low back surgery and is taking [place]. Family History: Maternal grandmother had seizures and she had Alzheimer disease. Seizures were late r in life. Social History: He admits to regular alcohol use, at least 4 alcoholic drinks on a daily basis. Den ies smoking cigarettes, but chews tobacco and uses a vapor inhaler regularly. He also uses strong ca ffeinated drinks to stay awake at work. Review of Systems: He denies any recent fevers, chills, nausea, vomiting, myalgias, arthralgias, headaches, weight davis e, rash, psychiatric complaints, gastrointestinal complaints, genitourinary complaints, or other comp laints. Physical Examination: Vital Signs: Blood pressure 127/81, pulse 79, respiratory rate 16, temperature 97.8, oxygen saturati on 99% on room air, weight 261 pounds, height 5 feet 6 inches, BMI of 42. General: Mr. Jhaveri is resting in bed. He is in no acute distress. His and son are at the beds nadia. HEENT: He is normocephalic, atraumatic. Sclerae anicteric. Oropharynx is pink and moist. Neck: Supple. Chest: Clear. Heart: Regular. Extremities: Show no edema, cyanosis, or clubbing. Neurological: He is alert and oriented to situation, place, person, time. He follows all commands a ppropriately. Cranial nerves 2 through 12 show no deficits. Motor: He has full strength, 5/5 proxi hannah and distally in the upper and lower extremities. Sensory: Intact to light touch, pinprick, te mperature in the arms and legs proximally and distally. Coordination intact in the upper and lower e xtremities. Reflexes 2+ in the upper and lower extremities bilaterally. Gait: Normal stance, right arm swing. Diagnostic Data: Please note his electroencephalogram was normal in the awake, drowsy, and asleep st ates. His echocardiogram showed an ejection fraction of 59% and was a normal study. His electrocard iogram showed sinus tachycardia up to 104, was otherwise normal. This was around the time after his seizure. Assessment: Mr. Jhaveri is a 38-year-old patient with a developmental venous anomaly in his r ight frontal lobe measuring 10 x 7 mm. He also has been consuming excessive amount of alcohol and en ergy drinks with high amounts of caffeine, taking in at least 500 mg of caffeine on the day of his se izure. He has been very sleep deprived, sleeping around 2 hours at night while he works at his job a [employer]. He has a family history of seizures. All of this was discussed with the patient, and he w as told that he must stop drinking alcohol and using highly caffeinated beverages. He should try to get at least 6-8 hours of sleep at night and try to decrease stress with regular exercise. He also w as told he should have an ambulatory video EEG monitoring study to help characterize additional episo esau, which actually his says may occur when he at times will appear to have slurred speech and m ay appear to not communicate effectively with her. She also notes that he seems to have a change in his personality, becoming very much shorter with her, and seems to be less tolerant of things around him. Plan: 1.Keppra 500 mg twice daily. 2.Once he is discharged, he should come to Dr. Saunders's office for set-up of ambulatory video EEG monitoring. 3.He should maintain an event diary. Patient's should assist him with this. 4.Once the ambulatory study is done, a determination will be made whether or not the patient may be able to return to work without restrictions. At this point, he should not drive or operate heavy [employer] for at least 3 months. He was told of this and signaled acknowledgement. Okay to discharge home. Again, follow up with Dr. Saunders next week. MATTHEW/VAZQUEZ Voice ID: [id number] Report ID: [id number]
== END 2019-02-13 14:10 | disposition home or self-care (01) | DRG 93 ==
LOC: ER 15:43 → ERHOLD 22:23 → 4TH 22:50
PROVIDERS: ADMIT Family Medicine; ATTEND Family Medicine
DX: D18.02 Hemangioma of intracranial structures (principal); R56.9 Unspecified convulsions; I10 Essential (primary) hypertension; F17.210 Nicotine dependence, cigarettes, uncomplicated; F10.10 Alcohol abuse, uncomplicated; G89.29 Other chronic pain; Z98.84 Bariatric surgery status
CPT/HCPCS: 36415; 70450; 70553; 80048; 80061; 80307; 80320; 81003; 83735; 84439; 84443; 84484; 85025; 93005; 93306; 95816; 96365; 96375; 99285; A9577; J1650; J1953; J3360; J7030

== ENCOUNTER 2020-07-17 12:11 | Emergency (ER) | payer BC, OTHER, SELFPAY ==
--- OUTSIDE RECORDS SUMMARY | 2020-07-17 12:15 | XMS REPORT | Continuity of Care Document ---
:1980 Author Organization [facility] Information [employer] Care Team Providers Name Role Phone [facility] [employer] Unavailable Un available Problems Problem Status Onset Classification Date Comments Sourc e Date Reported 08278, MORBID Active 01/06/20 OBESITY 16 [facility] [id number], REFLUX Active 11/30/[address] Acid reflux Resolved Problem 02/05/2016 (finding) [facility] Hypertensive Active Problem 02/05/2016 disorder, [facility] systemic arterial Ci ty (disorder) C/O - low back Active Problem 02/05/2016 pain [facility] (context-dependen Ci ty t category) 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) [facility] Morbid obesity Active Problem 02/05/2016 MH (disorder) [facility] ILLNESS, Active MH UNSPECIFIED [facility] Medications Medication Details Route Status Patient Ordering Order Source Instructions Provider Date Lactated Ringers 1,000 mL, Inactive 1,000 mL Rate: 80 2015 [facility] ml/hr, Infuse [facility] over: 12.5 hr, Route: IV, Dosing Weight 148.182 kg, Total Volume: 1,000, Start date: 02/02/16 9:00:00 CDT, Duration: 30 day, Stop date: 03/03/16 8:59:00 CDT Enoxaparin Notes: (Same No Longer as: Lovenox) Active 2015 [facility] Ketorolac 4 days No Longer MEDICATION Active 2015 [facility] WASTE [facility] Product Size: 30 mg Product Wasted: ___ mg Sodium Chloride 25 mL, Route: No Longer 0.9% IV IV, Start Active 2015 [facility] date: 02/01/16 [facility] 14:05:00 CDT, Duration: 30 day, Stop date: 03/02/16 14:04:00 CDT, PRN Line Flush BD Normal Saline Notes: (Same No Longer Flush as: BD Active 2015 [facility] Posiflush) [facility] BD Normal Saline Notes: (Same No Longer Flush as: BD Active 2015 [facility] Posiflush) [facility] Dilaudid Notes: (Same No Longer as: Dilaudid) Active 2015 [facility] Lactated Ringers 1,000 mL, Inactive Injection IV 1000 Rate: 80 2016 Memor ial mL ml/hr, Infuse [place] over: 12.5 hr, Route: IV, Dosing Weight 148.182 kg, Total Volume: 1,000, Priority: STAT, Start date: 02/01/16 11:34:00 CDT, Duration: 30 day, Stop date: 03/02/16 11:33:00 CDT Calcium Chloride 1,000 mL, No Longer 0.0014 MEQ/ML / Rate: 125 Active 2015 [facility] Potassium ml/hr, Infuse [facility] Chloride 0.004 over: 8 hr, MEQ/ML / Sodium Route: IV, Chloride 0.103 Dosing Weight MEQ/ML / Sodium 148.182 kg, Lactate 0.028 Total Volume: MEQ/ML Injectable 1,000, Start Solution date: 02/01/16 11:34:00 CDT, Stop date: 02/02/16 9:00:00 CDT Promethazine 12.5 mg, 50 No Longer mL, Route: Active 2015 [facility] IVPB, Drug City form: SOLN, Q4H, Dosing Weight 148.182, kg, PRN Nausea & Vomiting, Start date: 02/01/16 11:34:00 CDT, Duration: 30 day, Stop date: 03/02/16 11:33:00 CDT Ondansetron Notes: (Same No Longer as: Zofran) Active 2015 [facility] MEDICATION City WASTE Product Size: 4 mg Product Wasted: ___ mg Hydromorphone Notes: (Same Inactive as: Dilaudid) 2015 [facility] Naloxone Notes: Same as Inactive Narcan 2015 [facility] Meperidine Notes: (Same Inactive As: Demerol) 2015 [facility] Flumazenil Notes: (Same Inactive as: Romazicon) 2015 [facility] Diphenhydramine Notes: (Same Inactive as: Benadryl) 2015 [facility] Ondansetron Notes: (Same Inactive as: Zofran) 2016 [facility] MEDICATION City WASTE Product Size: 4 mg Product Wasted: ___ mg Labetalol Notes: (Same Inactive as: Normodyne, 2016 [facility] Trandate) Push City over 2 minutes Give bolus over 2-3 minutes. Ketorolac 4 days Inactive MEDICATION 2015 [facility] WASTE City Product Size: 30 mg Product Wasted: ___ mg Morphine Notes: (Same Inactive as:MORPhine 2015 [facility] Sulfate) [facility] Fentanyl Notes: (Same Inactive as: Sublimaze) 2015 [facility] Preservative [facility] free. Naloxone Notes: Same as Inactive Narcan 2015 [facility] Flumazenil Notes: (Same Inactive as: Romazicon) 2015 [facility] Ondansetron Notes: (Same Inactive as: Zofran) 2015 [facility] MEDICATION City WASTE Product Size: 4 mg Product Wasted: ___ mg Ancef Notes: Same Inactive as: Ancef 2015 [facility] Ondansetron Notes: (Same No Longer as: Zofran) Active 2015 [facility] MEDICATION City WASTE Product Size: 4 mg Product Wasted: ___ mg Promethazine Notes: Do not No Longer give IV push. Active 2015 [facility] (Same as: [facility] Phenergan) Naloxone Notes: Same as No Longer Narcan Active 2015 [facility] Ephedrine Notes: (Same No Longer as: ePHEDrine Active 2015 [facility] Sulfate) [facility] Diphenhydramine Notes: (Same No Longer H as: Benadryl) Active 2015 [facility] Flumazenil Notes: (Same No Longer as: Romazicon) Active 2015 [facility] Sodium Chloride 500 mL, Rate: No Longer 0.154 MEQ/ML 125 ml/hr, Active 2015 [facility] Injectable Infuse over: 4 City Solution hr, Route: IV, Dosing Weight 148.182 kg, Total Volume: 500, Start date: 12/02/15 8:11:00 CDT, Duration: 30 day, Stop date: 01/01/16 8:10:00 CDT Labetalol Notes: (Same No Longer as: Normodyne, Active 2015 [facility] Trandate) Push [place] over 2 minutes Give bolus over 2-3 minutes. Hydralazine Notes: (Same No Longer as: Active 2015 [facility] Apresoline) City Push over 5 minutes esmolol Notes: (Same No Longer as: Brevibloc) Active 2015 [facility] Metoprolol Notes: (Same No Longer as: Lopressor) Active 2015 [facility] Push over 2 City minutes carisoprodol 350 350 mg = 1 Active mg oral tablet tab, PO, BID, 2015 Mem orial 0 Refill(s) [facility] lisinopril 20 mg 20 mg = 1 tab, Active oral tablet PO, Daily, # 2015 Memoria l 30 tab, 0 City Refill(s) HYDROcodone 10 mg 10 mg = 1 cap, Active oral capsule, PO, Q12H, 0 2015 [facility] extended release Refill(s) [facility] Allergies, Adverse Reactions, Alerts No Known Medication Allergies Immunizations No Data Provided for This Section Results Order Name Results Value Reference Date Interpretation Comments Lilo rce Range CHEM PANEL eGFR 118 02/01 Result Comment: [facility] eGFR is City calculated using the [...] 0.50 - 02/01 MH Lvl 1.40 /2015 [facility] CHEM PANEL Glucose Lvl 105 70 - 99 02/01 [facility] CHEM PANEL Calcium Lvl 8.7 8.5 - 10.5 02/01 /2015 [facility] CHEM PANEL CO2 23 24 - 32 02/01 /2015 [facility] CHEM PANEL Chloride Lvl 108 95 - 109 02/01 [facility] CHEM PANEL Potassium 4.0 3.5 - 5.1 02/01 MH Lvl /2015 [facility] CHEM PANEL Sodium Lvl 142 135 - 145 02/01 [facility] CHEM PANEL BUN 12 7 - 22 02/01 [facility] CHEM PANEL AGAP 15.0 10.0 - 02/01 MH 20.0 [facility] HEMATOLOGY MCH 27.2 27.0 - 02/01 MH 31.0 [facility] HEMATOLOGY MCHC 33.0 32.0 - 02/01 MH 36.0 [facility] HEMATOLOGY RDW 12.9 11.5 - 02/01 MH 14.5 [facility] HEMATOLOGY Hgb 13.4 14.0 - 02/01 MH 18.0 [facility] HEMATOLOGY Hct 40.7 42.0 - 02/01 MH 54.0 [facility] HEMATOLOGY MCV 82.6 80.0 - 02/01 MH 94.0 [facility] HEMATOLOGY Platelet 250 133 - 450 02/01 [facility] HEMATOLOGY MPV 7.8 7.4 - 10.4 02/01 [facility] HEMATOLOGY WBC 12.3 3.7 - 10.4 02/01 [facility] HEMATOLOGY RBC 4.93 4.70 - 02/01 MH 6.10 [facility] HEMATOLOGY Segs-Bands # 9.6 1.5 - 8.1 02/01 [facility] HEMATOLOGY Lymphocytes 1.9 1.0 - 5.5 02/01 MH # /2015 [facility] HEMATOLOGY Monocytes # 0.5 0.0 - 0.8 02/01 [facility] HEMATOLOGY Eosinophils 0.0 0.0 - 0.5 02/01 MH # /2015 [facility] HEMATOLOGY Basophils # 0.2 0.0 - 0.2 02/01 [facility] HEMATOLOGY Monocytes 4.3 2.0 - 12.0 02/01 [facility] HEMATOLOGY Eosinophils 0.0 0.0 - 4.0 02/01 MH /2015 [facility] HEMATOLOGY Basophils 1.8 0.0 - 1.0 02/01 [facility] HEMATOLOGY Segs 78.6 45.0 - 02/01 MH 75.0 [facility] HEMATOLOGY Lymphocytes 15.3 20.0 - 02/01 MH 40.0 /2015 [facility] HEMATOLOGY PTT 36.0 22.9 - 02/01 MH 35.8 /2015 [facility] HEMATOLOGY PT 15.5 12.0 - 02/01 MH 14.7 [facility] HEMATOLOGY INR 1.20 0.85 - 02/01 MH 1.17 /2015 [facility] BLOOD BANK ABO/Rh A POS 01/31 RESULTS /2015 [facility] BLOOD BANK Antibody Negative 01/31 RESULTS Scrn (02/01/16 8:22 AM) [facility] CHEM PANEL Vitamin D, 24 30 - 100 01/18 25-OH, Total [facility] CHEM PANEL ALT 35 0 - 65 01/18 [facility] CHEM PANEL CO2 30 24 - 32 01/18 [facility] CHEM PANEL Albumin Lvl 3.9 3.5 - 5.0 01/18 [facility] CHEM PANEL AST 23 0 - 37 01/18 [facility] CHEM PANEL eGFR 104 01/18 Result Comment: [facility] eGFR is City calculated using the [...] CHEM PANEL Creatinine 0.96 0.50 - 01/18 Lvl 1.40 [facility] CHEM PANEL BUN 16 7 - 22 01/18 MH /2015 [facility] CHEM PANEL Glucose Lvl 103 70 - 99 01/18 [facility] CHEM PANEL Sodium Lvl 140 135 - 145 01/18 [facility] CHEM PANEL Potassium 4.2 3.5 - 5.1 01/18 MH Lvl /2015 [facility] CHEM PANEL Chloride Lvl 102 95 - 109 01/18 [facility] CHEM PANEL Calcium Lvl 9.4 8.5 - 10.5 01/18 [facility] CHEM PANEL Bili Total 0.8 0.2 - 1.3 01/18 [facility] CHEM PANEL Alk Phos 137 39 - 136 01/18 MH [facility] CHEM PANEL Total 8.0 6.4 - 8.4 01/18 MH [facility] CHEM PANEL B/C Ratio 17 6 - 25 01/18 [facility] CHEM PANEL AGAP 12.2 10.0 - 01/18 MH 20.0 [facility] CHEM PANEL A/G Ratio 1.0 0.7 - 1.6 01/18 [facility] CHEM PANEL Globulin 4.1 2.0 - 4.0 01/18 [facility] HEMATOLOGY PTT 38.8 22.9 - 01/18 MH 35.8 /2015 [facility] HEMATOLOGY PT 14.1 12.0 - 01/18 MH 14.7 [facility] HEMATOLOGY INR 1.06 0.85 - 01/18 MH 1.17 /2015 [facility] HEMATOLOGY RDW 12.9 11.5 - 01/18 MH 14.5 [facility] HEMATOLOGY Platelet 277 133 - 450 01/18 [facility] HEMATOLOGY MCHC 33.0 32.0 - 01/18 MH 36.0 [facility] HEMATOLOGY MPV 7.1 7.4 - 10.4 01/18 MH [facility] HEMATOLOGY MCV 83.0 80.0 - 01/18 MH 94.0 [facility] HEMATOLOGY MCH 27.4 27.0 - 01/18 MH 31.0 [facility] HEMATOLOGY Hct 44.5 42.0 - 01/18 MH 54.0 /2015 [facility] HEMATOLOGY Hgb 14.7 14.0 - 01/18 MH 18.0 /2015 [facility] HEMATOLOGY RBC 5.36 4.70 - 01/18 MH 6.10 /2015 [facility] HEMATOLOGY WBC 8.3 3.7 - 10.4 01/18 MH /2015 [facility] HEMATOLOGY Monocytes # 0.4 0.0 - 0.8 01/18 [facility] HEMATOLOGY Basophils # 0.0 0.0 - 0.2 01/18 MH [facility] HEMATOLOGY Eosinophils 0.7 0.0 - 4.0 01/18 MH /2015 [facility] HEMATOLOGY Basophils 0.5 0.0 - 1.0 01/18 [facility] HEMATOLOGY Eosinophils 0.1 0.0 - 0.5 01/18 MH # /2016 [facility] HEMATOLOGY Lymphocytes 2.4 1.0 - 5.5 01/18 MH # /2016 [facility] HEMATOLOGY Segs-Bands # 5.3 1.5 - 8.1 01/18 [facility] HEMATOLOGY Monocytes 4.8 2.0 - 12.0 01/18 [facility] HEMATOLOGY Lymphocytes 29.4 20.0 - 01/18 MH 40.0 /2015 [facility] HEMATOLOGY Segs 64.6 45.0 - 01/18 MH 75.0 [facility] PARATHYROID PTH Intact 59.5 11.1 - 01/18 MH PROFILE 79.5 /2015 [facility] SPECIAL Hgb A1C 5.5 <=5.6 % 01/18 CHEMISTRY /2015 [facility] URINE AND UA <=1.0 0.1 - 1.0 01/18 STOOL Urobilinogen mg/dL [facility] URINE AND UA Ketones Negative 01/18 STOOL /2015 [facility] URINE AND Micro? Performed 01/18 STOOL *NA* /2015 [facility] (01/19/16 11:15 AM) [facility] URINE AND UA Color Light Yellow Yellow 01/18 STOOL *NA* /2015 [facility] (01/19/16 11:15 AM) [facility] URINE AND UA Turbidity Clear Clear 01/18 STOOL (01/19/16 11:15 AM) /2015 [facility] URINE AND UA Spec Grav 1.017 <=1.030 01/18 STOOL [facility] URINE AND UA Protein Negative Negative 01/18 STOOL mg/dL mg/dL [facility] URINE AND UA Leuk Est Negative Negative 01/18 STOOL (01/19/16 11:15 AM) [facility] URINE AND UA Bili Negative Negative 01/18 STOOL *NA* /2015 [facility] Glucose Negative Negative 01/18 STOOL mg/dL mg/dL /2015 [facility] URINE AND UA pH 5.0 5.0 - 8.0 01/18 STOOL /2015 [facility] URINE AND UA RBC <1 0 - 2 01/18 STOOL /2015 [facility] URINE AND UA Mucus Few /LPF None Seen 01/18 STOOL /LPF /2015 [facility] URINE AND UA Blood Small Negative 01/18 STOOL *ABN* /2015 [facility] (01/19/16 11:15 AM) [facility] URINE AND UA Nitrite Negative Negative 01/18 [facility] (01/19/16 11:15 AM) [facility] Pathology Reports No Data Provided for This Section Diagnostic Reports Report Value Date Source Chest 2 views DX EXAM: PA AND LATERAL CHEST X RAY 01/19/2016 [facility] DATE:- 01/19/2016 10:42 AM CDT . CLINICAL INDICATION: Dizziness. TECHNIQUE: PA and lateral views of chest COMPARISON: Unavailable FINDINGS: The lungs are well inflated. There is patchy interstitial opacity in the right upper lobe. The central veins are mildly congested. Heart size and mediastinal contours are normal. Cardiothoraci c ratio is 17:35. There is no acute bony abnorma lity. IMPRESSION: 1. Right upper lobe intersti tial opacities may represent confluent vascular shadows versus atypical infection 2. Central venous congestion Consultation Notes No Data Provided for This Section Discharge Summaries No Data Provided for This Section History and Physicals No Data Provided for This Section Vital Signs Vital Sign Value Date Comments Source Systolic (mm Hg) 157 02/03/2016 [facility] Diastolic (mm Hg) 89 02/03/2016 [facility] Heart Rate 56 02/03/2016 [facility] y Temperature Oral (F) 98 F 02/03/2016 [facility] Respitory Rate 20 02/03/2016 [facility] ity Temperature Oral (F) 98.1 F 02/02/2016 [facility] Respitory Rate 18 02/02/2016 [facility] ity Systolic (mm Hg) 136 02/02/2016 [facility] Diastolic (mm Hg) 82 02/02/2016 [facility] Heart Rate 53 02/02/2016 [facility] y Systolic (mm Hg) 136 02/02/2016 [facility] Diastolic (mm Hg) 75 02/02/2016 [facility] Heart Rate 79 02/02/2016 [facility] y Respitory Rate 17 02/02/2016 [facility] Graeme skinner Temperature Oral (F) 98.2 F [facility]02[facility] 180.34 cm 01/19/2016 [facility] y Weight 148.182 01/19/2016 [facility] y BMI Calculated 45.56 01/19/2016 [facility] Graeme itmichael Weight 148.182 12/02/2015 [facility] Height 182.88 cm 12/02/2015 [facility] y BMI Calculated 44.31 12/02/2015 [facility] Graeme itmichael Encounters Location Location Encounter Encounter Reason Attending ADM DC Stat us Source Details Type Number For Provider Date Date Visit [facility] Bedded [id number] [facility] 12/01 12/01 [facility]patient [facility] [id number] [facility] 01/31 02/02 [facility] Procedures Procedure Code Date Perfomer Comments Source Epidural steroid [id number] [facility] ia injection [facility] Incision and [id number] [facility] drainage of [facility] abscess of villa Assessment and Plan Assessment and Plan Date Source Extracted from:Title: Clinical Document 02/03/2016 [facility] Author: Vincent Patel MD Date: 02/02/16 Progress Note - Daily [facility] Completed: Jan, 13:05 by Vincent Patel MD RM: [id number], [id number] DEMETRIA ZAMBRANO ART URO 35y (: 1980) M Attending: Vincent Patel MD Service: General Surgery Service Reason for Admission: [id number], MORBID OBESITY Working DRG: None Documented Code [...] H Bello still necessary (Yes/No): Line still wesleyvíctor franks (Yes/No): Vitals Tmp(F) Pulse BP RR SpO2 FIO2 02/01 12:07 98.2 79 136/75 17 --- --- 02/01 07:56 ---- --- ----- -- 96 21% 02/01 07:36 98.3 65 153/82 18 98 --- 02/01 05:50 ---- --- ----- -- 96 21% 02/01 04:00 97.6 76 125/55 19 98 --- 24 Hr Tmax: 98.6F (37.00c) at 01/31 20:0 0 Vital Signs are the last 5 in the past 48 hours. Date Wt(kg) Wt(lb) Ht(cm) Ht(in) Method 01/18 (initial) 148.18 326.00 180.34 71.00 Measured I&O Record In Out Bal 02/01 24hr Tot 322 600 -278 01/31 24hr Tot 1892 0326 448 Medications (10) Active Scheduled Meds (2): 02/01/16 enoxaparin 30 mg SUB-Q [id number] 02/01/16 ketOROLAC 30 mg IVP Q6H Unscheduled Meds: None PRN Meds (6): 02/01/16 Sodium Chloride 0.9% IV 25 mL IV PRN 02/01/16 hydromorphone (Dilaudid) 0.5 mg IV Q3H 02/01/16 ondansetron 4 mg IVP Q12H 02/01/16 promethazine 12.5 mg IVPB Q4H 300 ml/hr 02/01/16 sodium chloride (BD Normal Saline Flush) 5 mL IV OK N 02/01/16 sodium chloride (BD Normal Saline Flush) 10 mL IV P RN One Time Meds (1): 02/01/16 (Discontinued) ketOROLAC (ANES ketOROLAC) 30 mg IV P ONCE Continuous Infusions (1): 02/02/16 Lactated Ringers 1,000 mL 1,000 mL 80 ml/hr ASSESSMENT and EXAM NAD RRR Soft, ND, appr TTP, wounds c/d/i PLAN and TREATMENT S/p lap RYGB. Tolerating diet. Pain controlled. Ambulating w ell. Ready for Discharge (Yes/No)? 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 Frequency: 3-5 times per week. Smoking Status Former smoker; Type: Cigarettes; Exposur e to Tobacco Smoke None; Cigarette Smoking Last 365 Days No; Reg Smoking Cessation Counseling No Family History No Data Provided for This Section Advance Directives No Data Provided for This Section Functional Status No Data Provided for This Section
--- OUTSIDE RECORDS SUMMARY | 2020-07-17 12:16 | XMS REPORT | Summary of Care ---
:1980 Author Organization [facility] Address [address] [place] [address] Care Team Providers Name Role Phone Pcp, Patient Does Not Have A Primary Care Provider +1-000-00 0-0000 Reason for Visit Reason Comments Rx Concern/Question Encounter Details Date Type Department Care Team Description 04/14/2020 Telephone [facility] Cardiology- Royal Milligan, Rx Concern/Question John [address]IN [address] [facility] [address] [place] [address] [place], [place] [phone] Allergies No Known Allergiesdocumented as of this encounter (statuses as of 04/18/2020) Medications Medication Sig Dispensed Refills Start Date End Date Status levETIRAcetam (KEPPRA) Take 500 mg by 0 Active 500 mg tablet mouth 2 (two) times daily. cyclobenzaprine HCl Take 10 mg by 0 Active (FLEXERIL ORAL) mouth as needed. HYDROcodone-acetaminophe Take 1 tablet 0 Active n (NORCO) 7.5-325 mg per by mouth every tablet 6 (six) hours as needed for Pain. ALPRAZolam 1 mg Take 0.5 20 tablet 0 12/25/2019 Act kallie tabletIndications: tablets by Anxiety mouth 3 (three) times daily as needed (anxiety). FAMOTIDINE ORAL Take by mouth 0 Active daily. lisinopril 20 mg Take 1 tablet 180 tablet 2 01/15/2020 Active tabletIndications: by mouth 2 Essential hypertension, (two) times Palpitations daily. propranoloL 40 mg tablet Take 1 tablet 60 tablet 11 04/18/2020 Active by mouth 2 (two) times daily. documented as of this encounter (statuses as of 04/18/2020) Active Problems Problem Noted Date Palpitations 12/26/2019 Essential hypertension 12/26/2019 Obesity (BMI 30-39.9) 12/25/2019 Tachycardia 12/24/2019 documented as of this encounter (statuses as of 04/18/2020) Social History Tobacco Use Types Packs/Day Years Used Date Former Smoker Smokeless Tobacco: Current User Snuff Alcohol Use Drinks/Week oz/Week Comments Yes Sex Assigned at Date Recorded Not on file documented as of this encounter Last Filed Vital Signs Not on filedocumented in this encounter Miscellaneous Notes Telephone Encounter - Patti Akhtar - 04/18/2020 3:10 PM CDTSummary: Returning call Marquise Jhaveri is a 39 year old male Patient returning the call for Peri Goreectronically signed by Patti Akhtar at 04/18/2020 3:11 PM CDTAddendum Note - Monroe Ervin RN - 04/18/2020 2:44 PM CDT Addended by: MONROE ERVIN on: 04/18/2020 02:44 PM Modules accepted: Orders Telephone Encounter - Monroe Ervin RN - 04/18/2020 2:42 PM CDTLVM to return call regarding md's recommendations below. Med sent into patient's pharmacy. We need alist of current medications he is on including psych meds and a PHI signed in the office. elephone Encounter - Royal Milligan MD - 04/17/2020 8:49 PM CDTNoted. We can change Coreg 12.5 mg BID to Propanolol 40 mg BiD which will be the equivalent dose. BP and HRlog in 2 weeks. Please ask him to sign the medical release to get the records from his psychiatrist regarding this request. Also he needs to lets us know the exact psy meds that he is taking so that we can update the MAR forany potential interactions. elephone Encounter - Monroe Ervin RN - 04/14/2020 2:11 PM CDTPatient states psychiatrist started him on Cymbalta and a medication for sleep that he couldn't remember the name of. 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 Routing to md for review. elephone Encounter - Nishant Akhtar - 04/14/2020 1:52 PM CDTPatient calling in regards to his medication. PT states he spoke with his psychiatrist and she advised the patient to switch his medication to carvedilol to propanolol due to the reaction with his heart medication. Please advise. documented in this encounter Plan of Treatment Health Maintenance Due Date Last Done Comments VARICELLA VACCINES (1 of 2 - 12/29/1983 2-dose childhood series) Depression Screening 1994 DTaP,Tdap,and Td Vaccines (1 - 2001 Tdap) INFLUENZA VACCINE (#1) 2020 PNEUMOCOCCAL 0-64 YEARS COMBINED Aged Out No longer eligible based on SERIES patient's age to complete this topic documented as of this encounter Results Not on filedocumented in this encounter Insurance Payer Benefit Plan / Subscriber ID Effective Dates Phone Addre ss Type Group [facility] [id number] [facility] PPO t S documented as of this encounter
--- OUTSIDE RECORDS SUMMARY | 2020-07-17 12:16 | XMS REPORT | Summary of Care ---
:1980 Author Organization [facility] Address [address] [place] [id number] Care Team Providers Name Role Phone Pcp, Patient Does Not Have A Primary Care Provider +1-000-00 0-0000 Reason for Visit Reason Comments Rx Concern/Question Encounter Details Date Type Department Care Team Description 04/14/2020 Telephone [facility] Cardiology- Royal Milligan, Rx Concern/Question John CHAMBERLAIN [address] [facility], [address] [place] [address] [place], [place] [phone] Allergies No Known Allergiesdocumented as of [...] on filedocumented in this encounter Miscellaneous Notes Addendum Note - Monroe Ervin RN - 04/18/2020 [...] the psychiatrist asked him to 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
--- OUTSIDE RECORDS SUMMARY | 2020-07-17 12:16 | XMS REPORT | Summary of Care ---
:1980 Author Organization [facility] Address [address] [place] [address] Care Team Providers Name Role Phone Pcp, Patient Does Not Have A Primary Care Provider +1-000-00 0-0000 Reason for Visit Reason Comments Rx Concern/Question Encounter Details Date Type Department Care Team Description 04/14/2020 Telephone [facility] Cardiology- Royal Milligan, Rx Concern/Question [facility]LAIN [address] [facility], [address] [place] [address] [place], [place] [phone] Allergies No Known Allergiesdocumented as of this encounter (statuses as of 04/20/2020) Medications Medication Sig Dispensed Refills Start Date End Date Status levETIRAcetam Take 500 mg 0 Acti ve (KEPPRA) 500 mg by mouth 2 tablet (two) times daily. cyclobenzaprine HCl Take 10 mg by 0 Active (FLEXERIL ORAL) mouth as needed. HYDROcodone-acetamino Take 1 tablet 0 Active phen (NORCO) 7.5-325 by mouth mg per tablet every 6 (six) hours as needed for Pain. lisinopril 20 mg Take 1 tablet 180 tablet 2 01/15/2020 Active tabletIndications: by mouth 2 Essential (two) times hypertension, daily. Palpitations propranoloL 40 mg Take 1 tablet 60 tablet 11 04/18/2020 Active tablet by mouth 2 (two) times daily. hydrOXYzine 25 mg Take 25 mg by 0 Active tablet mouth at bedtime. FLUoxetine 20 mg Take 20 mg by 0 Active tablet mouth daily. ALPRAZolam 1 mg Take 0.5 20 tablet 0 12/25/2019 Dis continued tabletIndications: tablets by 0 Anxiety mouth 3 (three) times daily as needed (anxiety). FAMOTIDINE ORAL Take by 0 Disc ontinued mouth daily. 0 documented as of this encounter (statuses as of 04/20/2020) Active Problems Problem Noted Date Palpitations 12/26/2019 Essential hypertension 12/26/2019 Obesity (BMI 30-39.9) 12/25/2019 Tachycardia 12/24/2019 documented as of this encounter (statuses as of 04/20/2020) Social History Tobacco Use Types Packs/Day Years Used Date Former Smoker Smokeless Tobacco: Current User Snuff Alcohol Use Drinks/Week oz/Week Comments Yes Sex Assigned at Date Recorded Not on file documented as of this encounter Last Filed Vital Signs Not on filedocumented in this encounter Miscellaneous Notes Telephone Encounter - Ally Varghese MA - 04/20/2020 3:28 PM CDTPatients medication list has been updated. Patient is going to reach out to his psychiatrist to get us a copy of his ISABEL note. Patient was informed of the medication change per Dr. Milligan. Patient agreed and verbalized understanding. elephone Encounter - Monroe Ervin RN - 04/20/2020 9:55 AM CDTAttempted to contact patient. LVm to return call to clinic. elephone Encounter - Nishant Akhtar - 04/18/2020 3:22 PM CDTPatient returning call in regards to below encounter. Patient states it is urgent and is requesting a call back peewee. elephone Encounter - Patti Akhtar - 04/18/2020 3:10 [...] the psychiatrist asked him to contact his folder hand to see if they can put him [...] Effective Dates Phone Addre ss Type Group [facility] [id number] 2019-[employer] HMO/ PPO/[facility] PPO t S documented as of this encounter
--- OUTSIDE RECORDS SUMMARY | 2020-07-17 12:16 | XMS REPORT | Summary of Care ---
:1980 Author Organization [facility] Address [address] [place] [address] Care Team Providers Name Role Phone Pcp, Patient Does Not Have A Primary Care Provider +1-000-00 0-0000 Reason for Visit Reason Comments Rx Concern/Question Encounter Details Date Type Department Care Team Description 04/14/2020 Telephone [facility] Cardiology- Royal Milligan, Rx Concern/Question [facility]LAIN [address] [facility], 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 HMO/ PPO/[facility] PPO t S documented as of this encounter
--- OUTSIDE RECORDS SUMMARY | 2020-07-17 12:16 | XMS REPORT | Summary of Care ---
:1980 Author Organization [facility] Address [address] [place] [address] Care Team Providers Name Role Phone Pcp, Patient Does Not Have A Primary Care Provider +1-000-00 0-0000 Reason for Visit Reason Comments Rx Concern/Question Encounter Details Date Type Department Care Team Description 04/14/2020 Telephone [facility] Cardiology- Royal Milligan, Rx Concern/Question John [facility]IN [address] [facility], [address] [place] [address] [place], [place] [phone] Allergies No Known Allergiesdocumented as of this encounter (statuses as of 04/21/2020) Medications Medication Sig Dispensed Refills Start Date [...] as of this encounter (statuses as of 04/21/2020) Active Problems Problem Noted Date Palpitations 12/26/2019 Essential hypertension 12/26/2019 Obesity (BMI 30-39.9) 12/25/2019 Tachycardia 12/24/2019 documented as of this encounter (statuses as of 04/21/2020) Social History Tobacco Use Types Packs/Day Years Used Date Former Smoker Smokeless Tobacco: Current User Snuff Alcohol Use Drinks/Week oz/Week Comments Yes Sex Assigned at Date Recorded Not on file documented as of this encounter Last Filed Vital Signs Not on filedocumented in this encounter Miscellaneous Notes Telephone Encounter - Royal Milligan MD - 04/21/2020 10:03 AM CDTNoted. 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 to see if they can put him [...] Due Date Last Done Comments VARICELLA VACCINES ( of - 12/29/1983 2-dose childhood series) Depression Screening 1994 DTaP,Tdap,and Td Vaccines (1 - 2001 Tdap) INFLUENZA VACCINE (#1) 2020 PNEUMOCOCCAL 0-64 YEARS COMBINED Aged Out No longer eligible based on SERIES patient's age to complete this topic documented as of this encounter Results Not on filedocumented in this encounter Insurance Payer Benefit Plan / Subscriber ID Effective Dates Phone Addre ss Type Group [facility] [id number] 2019-[facility] HMO/ PPO/[facility] PPO t S documented as of this encounter
--- OUTSIDE RECORDS SUMMARY | 2020-07-17 12:16 | XMS REPORT | Continuity of Care Document ---
:1980 Author Organization [facility] t Address [address] [place] [address] Care Team Providers Name Role Phone Srini CHAMBERLAIN, K.H. Attending Clinician Good Patel Attending Clinician Good Patel Admitting Clinician Problems Condition Condition Condition Status Onset Resolution Last Treating Co mments Source Name Details Category Date Date Treatment Clinician Date 95862, Diagnosis Active 2016-02-07 Mem oria MORBID 6-17 21:59:00 l OBESITY 42791, 00:00: [place] MORBID 00 OBESITY Active 01/06/2016 [facility] 41518, Diagnosis Active 2015-12-05 Mem oria REFLUX 5-11 11:03:00 l [id number], 00:00: [place] REFLUX 00 Active 11/30/2015 [facility] Acid Problem Resolve 2016-02-05 Kwadwo jase reflux d 00:26:43 l (finding) Acid [place] reflux (finding) Resolved Problem 02/05/2016 [facility] Hypertensi Problem Active 2016-02-05 M emoria ve 00:26:43 l disorder, [place] systemic Hypertensi arterial ve (disorder) disorder, systemic arterial (disorder) Active Problem 02/05/2016 [facility] C/O - low Problem Active 2016-02-05 Me moria back pain 00:26:43 l (context-d C/O - Emily nn ependent low back category) pain (context-d ependent category) Active Problem 02/05/2016 [facility] Degenerati Problem Active 2016-02-05 M emoria on of 00:26:43 l interverte Andrae n bral disc Degenerati (disorder) on of interverte bral disc (disorder) Active Problem 02/05/2016 [facility] Morbid Problem Active 2016-02-05 Memor ia obesity 00:26:43 l (disorder) Morbid Herm johnny obesity (disorder) Active Problem 02/05/2016 [facility] ILLNESS, Diagnosis Active 2016-02-07 M emoria UNSPECIFIE 21:59:00 l D ILLNESS, Andrae n UNSPECIFIE D Active [facility] Allergies, Adverse Reactions, Alerts This patient has no known allergies or adverse reactions. Social History Social Habit Start Date Stop Date Quantity Comments Source Social History 2016-01-19 2016-01-19 [facility] ermann 16:22:14 16:22:14 Medications Ordered Filled Start Stop Current Ordering Indication Dosage Frequency Signature Comments Components Source Medication Medication Date Date Medication? Clinician (SIG) Name Name Lactated No 1,000 mL, Kwadwo jase Ringers 02-01 Rate: 80 l 1,000 mL 14:00: ml/hr, Infuse over: 12.5 hr, Route: IV, Dosing Weight 148.182 kg, Total Volume: 1,000, Start date: 02/02/16 9:00:00 CDT, Duration: 30 day, Stop date: 03/03/16 8:59:00 CDT Enoxaparin No Notes: Memor ia -14 (Same as: l 04:30: Lovenox) Ketorolac No 4 days Memor ia 01-31 l 20:00: MEDICATION WASTE Product Size: 30 mg Product Wasted: ___ mg Sodium No 25 mL, Memoria Chloride 01-31 Route: IV, l 0.9% IV 19:05: Start [place] 00 date: 02/01/16 14:05:00 CDT, Duration: 30 day, Stop date: 03/02/16 14:04:00 CDT, PRN Line Flush BD Normal No Notes: Memori a Saline 7-13 (Same as: l Flush 19:05: BD [place] Posiflush) BD Normal No Notes: Memori a Saline 7-13 (Same as: l Flush 19:04: BD [place] Posiflush) Dilaudid No Notes: Memoria 7-13 (Same as: l 16:37: Dilaudid) Lactated No 1,000 mL, Kwadwo jase Ringers 7-13 Rate: 80 l Injection 16:34: ml/hr, Andrae n IV 1000 mL 00 Infuse over: 12.5 hr, Route: IV, Dosing Weight 148.182 kg, Total Volume: 1,000, Priority: STAT, Start date: 02/01/16 11:34:00 CDT, Duration: 30 day, Stop date: 03/02/16 11:33:00 CDT Calcium No 1,000 mL, Memor ia Chloride 01-31 Rate: 125 l 0.0014 16:34: ml/hr, [place] MEQ/ML / 00 Infuse Potassium over: 8 Chloride hr, Route: 0.004 IV, Dosing MEQ/ML / Weight Sodium 148.182 Chloride kg, Total 0.103 Volume: MEQ/ML / 1,000, Sodium Start Lactate date: 0.028 02/01/16 MEQ/ML 11:34:00 Injectable CDT, Stop Solution date: 02/02/16 9:00:00 CDT Promethazin No 12.5 mg, Me moria e 7-13 50 mL, l 16:34: Route: IVPB, Drug form: SOLN, Q4H, Dosing Weight 148.182, kg, PRN Nausea & Vomiting, Start date: 02/01/16 11:34:00 CDT, Duration: 30 day, Stop date: 03/02/16 11:33:00 CDT Ondansetron No Notes: Kwadwo jase 7-13 (Same as: l 16:34: Zofran) MEDICATION WASTE Product Size: 4 mg Product Wasted: ___ mg Hydromorpho No Notes: Kwadwo jase ne -13 (Same as: l 16:33: Dilaudid) Naloxone No Notes: Memoria 7-13 Same as l 16:33: Narcan Meperidine No Notes: Memor ia 7-13 (Same As: l 16:33: Demerol) Flumazenil No Notes: Memor ia 7-13 (Same as: l 16:33: Romazicon) [place] Diphenhydra No Notes: Kwadwo jase mine 7-13 (Same as: l 16:33: Benadryl) [place] 00 Ondansetron No Notes: Kwadwo jase 7-13 (Same as: l 16:33: Zofran) [place] 00 MEDICATION WASTE Product Size: 4 mg Product Wasted: ___ mg Labetalol No Notes: Memori a 7-13 (Same as: l 16:33: Normodyne, [place] 00 Trandate) Push over 2 minutes Give bolus over 2-3 minutes. Ketorolac No 4 days Memor ia 7-13 l 16:33: MEDICATION [place] 00 WASTE Product Size: 30 mg Product Wasted: ___ mg Morphine No Notes: Memoria 7-13 (Same l 16:33: as:MORPhin [place] 00 e Sulfate) Fentanyl No Notes: Memoria 7-13 (Same as: l 16:33: Sublimaze) [place] 00 Preservat kallie free. Naloxone No Notes: Memoria 7-13 Same as l 12:44: Narcan [place] 00 Flumazenil No Notes: Memor ia 7-13 (Same as: l 12:44: Romazicon) [place] 00 Ondansetron No Notes: Kwadwo jase 7-13 (Same as: l 12:44: Zofran) [place] 00 MEDICATION WASTE Product Size: 4 mg Product Wasted: ___ mg Ancef No Notes: Memoria 7-13 Same as: l 05:00: Ancef [place] Ondansetron No Notes: Kwadwo jase 5-13 (Same as: l 13:11: Zofran) [place] 00 MEDICATION WASTE Product Size: 4 mg Product Wasted: ___ mg Promethazin No Notes: Do M emoria e 5-13 not give l 13:11: IV push. [place] 00 (Same as: Phenergan) Naloxone No Notes: Memoria 5-13 Same as l 13:11: Narcan Ephedrine No Notes: Memori a 5-13 (Same as: l 13:11: ePHEDrine Sulfate) Diphenhydra No Notes: Kwadwo jase mine 5-13 (Same as: l 13:11: Benadryl) Flumazenil No Notes: Memor ia 5-13 (Same as: l 13:11: Romazicon) Sodium No 500 mL, Memoria Chloride 5-13 Rate: 125 l 0.154 13:11: ml/hr, [place] MEQ/ML 00 Infuse Injectable over: 4 Solution hr, Route: IV, Dosing Weight 148.182 kg, Total Volume: 500, Start date: 12/02/15 8:11:00 CDT, Duration: 30 day, Stop date: 01/01/16 8:10:00 CDT Labetalol No Notes: Memori a 5-13 (Same as: l 13:11: Normodyne, [place] 00 Trandate) Push over 2 minutes Give bolus over 2-3 minutes. Hydralazine No Notes: Kwadwo jase 5-13 (Same as: l 13:11: Apresoline ) Push over 5 minutes esmolol No Notes: Memoria 5-13 (Same as: l 13:11: Brevibloc) Metoprolol No Notes: Memor ia 5-13 (Same as: l 13:11: Lopressor) Push over 2 minutes carisoprodo Yes 350 mg = 1 Memoria l 350 mg 5-13 tab, PO, l oral tablet 12:48: BID, 0 Herm johnny 00 Refill(s) lisinopril Yes 20 mg = 1 Me moria 20 mg oral 5-13 tab, PO, l tablet 12:48: Daily, # [place] 00 30 tab, 0 Refill(s) HYDROcodone Yes 10 mg = 1 M emoria 10 mg oral 5-13 cap, PO, l capsule, 12:48: Q12H, 0 Andrae n extended 00 Refill(s) release Vital Signs Vital Name Observation Time Observation Value Comments Source Systolic (mm Hg) 2016-02-03 01:00:00 Kwadwo rial [place] Diastolic (mm Hg) 2016-02-03 01:00:00 Mem orial [place] Heart Rate 2016-02-03 01:00:00 [facility] [place] Temperature Oral (F) 2016-02-03 01:00:00 98 F [facility] [place] Respitory Rate 2016-02-03 01:00:00 Memori al [place] Temperature Oral (F) 2016-02-02 20:58:00 98.1 F [facility] [place] Respitory Rate 2016-02-02 20:58:00 Memori al [place] Systolic (mm Hg) 2016-02-02 20:58:00 Kwadwo rial [place] Diastolic (mm Hg) 2016-02-02 20:58:00 Mem orial [place] Heart Rate 2016-02-02 20:58:00 [facility] [place] Systolic (mm Hg) 2016-02-02 17:07:00 Kwadwo rial [place] Diastolic (mm Hg) 2016-02-02 17:07:00 Mem orial [place] Heart Rate 2016-02-02 17:07:00 [facility] [place] Respitory Rate 2016-02-02 17:07:00 Memori al [place] Temperature Oral (F) 2016-02-02 17:07:00 98.2 F [facility] [place] Height 2016-01-19 15:41:00 180.34 cm [facility] [place] Weight 2016-01-19 15:41:00 [facility] [place] BMI Calculated 2016-01-19 15:41:00 Memori al [place] Weight 2015-12-02 12:45:00 [facility] [place] Height 2015-12-02 12:45:00 182.88 cm [facility] [place] BMI Calculated 2015-12-02 12:45:00 Memori al [place] Procedures Procedure Date / Time Performed Performing Clinician [facility] Epidural steroid Memorial Andrae n injection Incision and drainage of Memoria l [place] abscess of villa Encounters Start End Encounter Admission Attending Care Care Encounter Source Date/Time Date/Time Type Type Clinicians Facility Department ID 2020-04-14 2020-04-14 Telephone Srini [facility] [id number] 00:00:00 00:00:00 Royal Lopez [id number] [place] [id number] gregorioio [id number] nal 059 Deangelo 2016-02-01 2016-02-02 Outpatient Primomo, [facility] [id number] 11:34:00 21:41:00 Vincent Paige Good 2015-12-02 2015-12-02 Outpatient Primomo, [facility] [id number] 07:06:00 09:05:00 Vincent Cathy Good Results Test Description Test Time Test Comments Results Result Comments Source CHEM PANEL 2016-02-02 118 [facility] Emily nn 10:38:00 CHEM PANEL 2016-02-02 0.79 [facility] Emily nn 10:38:00 CHEM PANEL 2016-02-02 105 [facility] Emily nn 10:38:00 CHEM PANEL 2016-02-02 8.7 [facility] [place] nn 10:38:00 CHEM PANEL 2016-02-02 23 [facility] [place] nn 10:38:00 CHEM PANEL 2016-02-02 108 [facility] [place] nn 10:38:00 CHEM PANEL 2016-02-02 4.0 [facility] [place] nn 10:38:00 CHEM PANEL 2016-02-02 142 [facility] [place] nn 10:38:00 CHEM PANEL 2016-02-02 12 [facility] [place] nn 10:38:00 CHEM PANEL 2016-02-02 15.0 [facility] [place] nn 10:38:00 HEMATOLOGY 2016-02-02 10:38:00 Test Item Value Reference Range Interpretation Comme nts MCH (test code = MCH) 27.2 pg 27.0-31.0 [facility] GzeuwvwTPBKDJJMCK8666-33-12 10:38:0033.0[facility]annHEMATOLOGY 2016-02-02 10:38:0012.9[facility] UaaimgpZSVDSQSTQK5912-49-15 10:38:0013.4[facility] HtlcpsyYYOUOGTCWS1740-92-81 10:38:0040.7[facility] HlfwixaOQXIYIJMQR2451-87-81 10:38:0082.6[facility] MzltiweDBTJZRFAHK3596-92-59 10:38:09574Icdpkyfa [place] BHGHMNYWCP3857-53-53 10:38:007.8[facility] NydckreQESNOOGXWW7689-02-03 10:38:00 12.3[facility] NebehfxGLRGNFWGUI3466-30-33 10:38:004.93[facility] HermannHEMATOLOGY 2016-02-02 10:38:009.6[facility] RslkcvzHTARWJZJQQ5861-08-31 10:38:001.9[facility] HuapnkcDLHEVOEYPA4815-35-42 10:38:000.5[facility] EwyvnoxBDLAVFNOQR8475-15-33 10:38:000.0[facility] YqelyfsEIYSRYWBOW9116-26-65 10:38:000.2[facility] [place] SZPTSFNPHV0578-35-21 10:38:004.3[facility] LydoymxYFGYPPZZEZ0661-99-16 10:38:000.0 [facility] JqouapwGOFUWKNRRF4481-83-07 10:38:001.8[facility]annHEMATOLOGY 2016-02-02 10:38:0078.6[facility] HxfsghkBRNWSSLHOH1841-33-56 10:38:0015.3[facility] UjgxkbxIWJKXLYENI1868-81-41 10:38:00 Test Item Value Reference Range Interpretation Comments PTT (test code = PTT) 36.0 s 22.9-35.8 [facility] XpvtfyxMARXGFIBOZ7584-46-23 10:38:00 Test Item Value Reference Range Interpretation Comments PT (test code = PT) 15.5 s 12.0-14.7 [facility] HxuokueWTDAAIVGWZ0296-40-76 10:38:001.20[facility] HermannBLOOD BANK UKHCYRA0647-10-41 13:22:00Negative (02/01/16 8:22 AM)[facility] HermannCHEM PANEL 2016-01-19 16:50:0024[facility] HermannCHEM KYHWB9024-16-31 16:50:0035[facility] HermannCHEM SLVXJ5009-74-76 16:50:0030[facility] HermannCHEM MJQAM2328-02-34 16:50:003.9[facility] HermannCHEM MJYUJ4249-06-35 16:50:0023[facility] HermannCHEM XUWMJ7356-97-84 16:50:99790Paruhbjg HermannCHEM CUIAJ2035-46-30 16:50:000.96 [facility] HermannCHEM LSACP9534-99-79 16:50:0016[facility] HermannCHEM PANEL 2016-01-19 16:50:82580Bubsrbfe HermannCHEM EVASC6298-69-24 16:50:34717Dimtqtma HermannCHEM CBQZX2464-17-84 16:50:004.2[facility] HermannCHEM BXCDT1955-75-17 16:50:21217Unxgczjl HermannCHEM YZJKY8618-57-19 16:50:009.4[facility] HermannCHEM RLPJH3135-63-87 16:50:000.8[facility] HermannCHEM KQSOT2592-18-34 16:50:20045 [facility] HermannCHEM AFHTO2080-76-14 16:50:008.0[facility] HermannCHEM PANEL 2016-01-19 16:50:0017[facility] HermannCHEM AWSTF7401-01-54 16:50:0012.2[facility] HermannCHEM KGFVG3099-41-69 16:50:001.0[facility] HermannCHEM EWRQG5940-71-76 16:50:004.1[facility] EvsaugePHXJODNDDQ1830-36-99 16:50:00 Test Item Value Reference Range Interpretation Comments PTT (test code = PTT) 38.8 s 22.9-35.8 [facility] InuluotRJFXXFHJNK0191-56-37 16:50:00 Test Item Value Reference Range Interpretation Comments PT (test code = PT) 14.1 s 12.0-14.7 [facility] EjutmxqSVNCWOIZMR2639-05-83 16:50:001.06[facility] HermannHEMATOLOGY 2016-01-19 16:50:0012.9[facility] HwzfirmGJVDANZQAY3537-67-72 16:50:76003Hlceitlh DmuzufjDNRMVSQPBQ8437-53-89 16:50:0033.0[facility] ZzeldieCHYQCDQDTP5855-27-45 16:50:007.1[facility] VjlefqtZMMWUKUSWF5586-36-73 16:50:0083.0[facility] [place] AROEFFMMQY3634-13-63 16:50:00 Test Item Value Reference Range Interpretation Comments MCH (test code = MCH) 27.4 pg 27.0-31.0 [facility] JbllrzjCYEFEACWGO7441-42-40 16:50:0044.5[facility] HermannHEMATOLOGY 2016-01-19 16:50:0014.7[facility] EbyrpjgQAOFVOPGKP7205-44-05 16:50:005.36[facility] EwfivoxISEGSZANNJ9406-35-83 16:50:008.3[facility] NzdxmxrERMWMQLEOD5898-01-45 16:50:000.4[facility] VxjsambAOIWQLELFV5997-84-24 16:50:000.0[facility] [place] VSIKNNQEJN9078-59-05 16:50:000.7[facility] VztpqgxOFFFTRULJR7057-24-53 16:50:000.5 [facility] WikkbdjZDNQXGOOND1035-92-47 16:50:000.1[facility] HermannHEMATOLOGY 2016-01-19 16:50:002.4[facility] WxcmmylTIUHEPXYZE9810-20-45 16:50:005.3[facility] KhotdumXCJFJIKAJA6540-53-53 16:50:004.8[facility] PlgvuovHCVEDMKYKG5065-12-09 16:50:0029.4[facility] OcmjxajLCSWWRLQFM8916-32-94 16:50:0064.6[facility] [place] PARATHYROID IMILUFN4911-12-40 16:50:0059.5[facility] HermannSPECIAL CHEMISTRY 2016-01-19 16:50:005.5[facility] HermannURINE AND MAMTY0747-18-41 16:15:00 Performed *NA*(01/19/16 11:15 AM)[facility] AND ETKJY2349-47-81 16:15:00Light Yellow *NA*(01/19/16 11:15 AM)[facility] STOOL 2016-01-19 16:15:00Clear (01/19/16 11:15 AM)[facility] STOOL 2016-01-19 16:15:001.017[facility]annUR[facility] AND DGGKS3818-93-96 16:15:00 Negative (01/19/16 11:15 AM)[facility] DWFGA0647-02-33 16:15:00 Negative *NA*(01/19/16 11:15 AM)[facility] ASPPQ8999-22-98 16:15:005.0[facility] AND XISMN9297-19-72 16:15:00<1[facility] AND PFOQM7340-53-10 16:15:00Small *ABN*(01/19/16 11:15 AM)[facility] AND PIJPS3515-02-60 16:15:00Negative (01/19/16 11:15 AM)[facility]
[2020-07-17 17:10] LABS: Absolute Lymphocytes (CBC) 2.1 K/uL (0.7-4.9); Basophils % 0.7 % (0-1.3); Hematocrit 42.4 % (39.6-49.0); Lymphocytes % 27.2 % (15.3-44.8); MPV 7.2 fL (7.6-11.3); RBC Red Blood Cell Count 4.53 M/uL (4.33-5.43)
[2020-07-17] MEDS ORDERED: ONDANSETRON 4 MG/2 ML VIAL ONE (17:16)
[2020-07-17] MEDS ORDERED: FAMOTIDINE 20 MG/2 ML VIAL IV ONE (17:18)
[2020-07-17 17:28] LABS: Protime INR 1.05
[2020-07-17 17:29] LABS: ALT/SGPT 84 U/L (12-78); AST/SGOT 53 U/L (15-37); Alkaline Phosphatase 137 U/L (45-117); BUN Blood Urea Nitrogen 17 mg/dL (7-18); Bicarbonate 30 mmol/L (21-32); Bilirubin Direct 0.2 mg/dL (0-0.2); Bilirubin Total 0.5 mg/dL (0.2-1.0); Glucose Level 116 mg/dL (74-106); Lipase 70 U/L (73-393); Magnesium 2.3 mg/dL (1.8-2.4); NT PRO-BNP 14 pg/mL (<125); Potassium 4.4 mmol/L (3.5-5.1); Sodium Level 140 mmol/L (136-145); Troponin (Emerg Dept Use Only) < 0.02 ng/mL (0.0-0.045)
--- NOTE | 2020-07-17 19:45 | RAD REPORT ---
EXAM DESCRIPTION: US - Abdomen Exam Limited - 07/17/2020 7:37 pm CLINICAL HISTORY: RUQ abd COMPARISON: No comparisons FINDINGS: No gallstones, sludge or other abnormalities within the gallbladder lumen. There is no wal l thickening or pericholecystic fluid. No common duct stone or biliary tree dilatation identified. IMPRESSION: Normal gallbladder and biliary tree ultrasound.
--- NOTE | 2020-07-17 19:46 | RAD REPORT ---
EXAM DESCRIPTION: RAD - Chest Single View - 07/17/2020 5:37 pm CLINICAL HISTORY: left side chest burning COMPARISON: Two view chest December 2012 TECHNIQUE: AP portable chest image was obtained 07/17/2020 5:37 pm . FINDINGS: No focal lung parenchymal process. Interstitial pattern matches the comparison when adjust ing for positioning and inspiratory affects. Heart and vasculature are normal. No measurable pleural effusion and no pneumothorax. No acute bony abnormality seen. No acute aortic findings suspected. IMPRESSION: No acute cardiopulmonary process. No significant change from comparison study.
--- NOTE | 2020-07-17 19:51 | ER ---
Nurse's Notes [facility] Name: Marquise Jhaveri Age: 39 yrs Sex: Male : 1980 Arrival Date: 07/17/2020 Time: 12:14 Bed 30 Private MD: Diagnosis: Other chest pain;Pain localized to upper abdomen-RUQ Presentation: 07/17 12:28 Chief complaint: Patient states: about 20 minutes ago he was lying down and felt a cold iw burning pain to left side of chest and down left arm, also has had gastric bypass and has been having a lot of heartburn and acid taste in his throat X 2 weeks. Coronavirus screen: At this time, the client does not indicate any symptoms associated with coronavirus-19. Ebola Screen: Patient negative for fever greater than or equal to 101.5 degrees Fahrenheit, and additional compatible Ebola Virus Disease symptoms Patient denies exposure to infectious person. Patient denies travel to an Ebola-affected area in the 21 days before illness onset. No symptoms or risks identified at this time. Initial Sepsis Screen: Does the patient meet any 2 criteria? No. Patient's initial sepsis screen is negative. Does the patient have a suspected source of infection? No. Patient's initial sepsis screen is negative. Risk Assessment: Do you want to hurt yourself or someone else? Patient reports no desire to harm self or others. Onset of symptoms was July 17, 2020. 12:28 Method Of Arrival: Ambulatory iw 12:28 Acuity: ARNULFO 3 iw Historical: - Allergies: 12:31 No Known Allergies; iw - Home Meds: 12:31 Propranolol Oral [Active]; Hydrocodone-Acetaminophen Oral [Active]; iw - PMHx: 12:31 gastric bypass; Hypertension; Anxiety; iw - PSHx: 12:31 Disc surgery; iw - Immunization history:: Adult Immunizations not up to date. - Social history:: Smoking status: Patient reports the use of cigarette tobacco products. Screenin:05 Abuse screen: Denies threats or abuse. Denies injuries from another. Nutritional iw screening: No deficits noted. Tuberculosis screening: No symptoms or risk factors identified. Fall Risk None identified. Assessment: 12:45 General: Appears in no apparent distress. Behavior is calm, cooperative. Pain: iw Complains of pain in anterior aspect of left upper chest Pain radiates to left arm Pain began 1 hour ago. Neuro: Level of Consciousness is awake, alert, obeys commands, Oriented to person, place, time, situation, Moves all extremities. Cardiovascular: Patient's skin is warm and dry. Respiratory: Respiratory effort is even, unlabored, Respiratory pattern is regular. Derm: Skin is intact, is healthy with good turgor. Musculoskeletal: Range of motion: intact in all extremities. 17:58 Reassessment: Patient appears in no apparent distress at this time. Patient and/or iw family updated on plan of care and expected duration. Pain level reassessed. Patient is alert, oriented x 3, equal unlabored respirations, skin warm/dry/pink. Vital Signs: 12:31 BP 115 / 86; Pulse 92; Resp 16; Temp 98.7; Pulse Ox 98% on R/A; Weight 120.2 kg; Height iw 6 ft. 5 in. (195.58 cm); Pain 0/10; 16:57 BP 143 / 95; Pulse 95; Resp 20; Temp 98.0(O); Pulse Ox 98% on R/A; mh5 18:22 BP 135 / 97; Pulse 90; Resp 16; Pulse Ox 98% on R/A; iw 19:04 BP 151 / 90; Pulse 85; Resp 18; Temp 97.7(O); Pulse Ox 99% on R/A; mh5 12:31 Body Mass Index 31.42 (120.20 kg, 195.58 cm) ED Course: 12:14 Patient arrived in ED. as 12:29 Triage completed. iw 12:45 Arm band placed on. iw 16:32 Betty Taylor, ANAHY is Primary Nurse. iw 16:36 Adalid Srivastava PA is PHCP. cp 16:36 Emre Damon MD is Attending Physician. cp 16:56 Patient has correct armband on for positive identification. Placed in gown. Bed in low mh5 position. Call light in reach. Side rails up X 1. Warm blanket given. traffic monitor specialist on. Pulse ox on. NIBP on. 16:56 EKG done, by ED staff, reviewed by Adalid LOMBARDI. mh5 17:00 Initial lab(s) drawn, by al, sent to lab. Inserted saline lock: 20 gauge in right kj1 antecubital area, using aseptic technique. Blood collected. 17:37 XRAY Chest (1 view) In Process Unspecified. EDMS 19:37 US Abdomen Limited: RUQ abdomen pain In Process Unspecified. EDMS 19:50 Reggie Nobles MD is Referral Physician. cp 19:58 Inserted saline lock:. [facility] 19:59 IV discontinued, Pressure dressing applied. [facility] 20:00 IV discontinued, intact, bleeding controlled, No redness/swelling at site. Pressure iw dressing applied. 20:09 No provider procedures requiring assistance completed. Patient maintains SpO2 iw saturation greater than 95% on room air. Administered Medications: 17:02 Not Given (Physician Discretion; VO change to Pepcid): ProTONIX 40 mg IVP once ca1 17:04 Drug: Pepcid 20 mg Route: IVP; Site: right antecubital; ca1 17:06 Drug: Zofran (Ondansetron) 4 mg Route: IVP; Site: right antecubital; ca1 Outcome: 19:50 Discharge ordered by MD. cp 20:10 Discharged to home ambulatory. iw 20:10 Condition: good 20:10 Discharge instructions given to patient, Instructed on discharge instructions, follow up and referral plans. medication usage, Demonstrated understanding of instructions, follow-up care, medications. 20:12 Patient left the ED. [facility] Signatures: Dispatcher [employer] Sofie Barksdale Irene, RN RN iw Adalid Srivastava PA PA cp Martinez, Maria [facility] Patrica Linder RN RN ca1 Jenni Julian kj1
--- NOTE | 2020-07-17 19:52 | EDPHYS ---
Physician Documentation [facility] Name: Marquise Jhaveri Age: 39 yrs Sex: Male : 1980 Arrival Date: 07/17/2020 Time: 12:14 Bed 30 Private MD: ED Physician Emre Damon HPI: 07/17 16:55 This 39 yrs old Male presents to ER via Ambulatory with complaints of Chest cp Pain. 16:55 The patient or guardian reports chest pain that is located primarily in the anterior cp chest wall, left. Onset: The symptoms/episode began/occurred just prior to arrival. 16:55 The pain radiates to the left arm. The symptoms are described as described as feeling cp "cold". 16:58 The patient presents with abdominal pain in the epigastric area, in the right upper cp quadrant, described as burning. Onset: The symptoms/episode began/occurred 2 week(s) ago. The symptoms do not radiate. Historical: - Allergies: 12:31 No Known Allergies; iw - Home Meds: 12:31 Propranolol Oral [Active]; Hydrocodone-Acetaminophen Oral [Active]; iw - PMHx: 12:31 gastric bypass; Hypertension; Anxiety; iw - PSHx: 12:31 Disc surgery; iw - Immunization history:: Adult Immunizations not up to date. - Social history:: Smoking status: Patient reports the use of cigarette tobacco products. ROS: 17:00 Constitutional: Negative for body aches, chills, fever, poor PO intake. cp 17:00 Eyes: Negative for injury, pain, redness, and discharge. cp 17:00 Cardiovascular: Negative for chest pain, edema, palpitations. cp 17:00 Neck: Negative for pain with movement, pain at rest, stiffness. cp 17:00 Respiratory: Negative for cough, shortness of breath, wheezing. 17:00 Abdomen/GI: Positive for abdominal pain, nausea, of the epigastric area and right upper quadrant, Negative for vomiting, diarrhea, constipation, black/tarry stool, rectal bleeding. 17:00 Back: Negative for radiated pain. 17:00 Skin: Negative for rash. 17:00 Neuro: Negative for altered mental status, headache, syncope, weakness. 17:00 All other systems are negative. Exam: 12:40 ECG was reviewed by the Attending Physician. cp 17:05 Constitutional: The patient appears in no acute distress, alert, awake, cp non-diaphoretic, non-toxic, well developed, well nourished. 17:05 Head/Face: Normocephalic, atraumatic. cp 17:05 Eyes: Periorbital structures: appear normal, Conjunctiva: normal, no exudate, no injection, Sclera: no appreciated abnormality, Lids and lashes: appear normal, bilaterally. 17:05 ENT: External ear(s): are unremarkable, Nose: is normal, Mouth: Lips: moist, Oral mucosa: moist, Posterior pharynx: Airway: no evidence of obstruction, patent. 17:05 Neck: ROM/movement: is normal, is supple, without pain, no range of motions limitations. 17:05 Chest/axilla: Inspection: normal, Palpation: is normal, no crepitus, no tenderness. 17:05 Cardiovascular: Rate: normal, Rhythm: regular, Edema: is not appreciated, JVD: is not appreciated. 17:05 Respiratory: the patient does not display signs of respiratory distress, Respirations: normal, no use of accessory muscles, no retractions, labored breathing, is not present, Breath sounds: are clear throughout, no decreased breath sounds. 17:05 Abdomen/GI: Inspection: abdomen appears normal, Bowel sounds: active, all quadrants, Palpation: soft, in all quadrants, mild abdominal tenderness, in the epigastric area and right upper quadrant, rebound tenderness, is not appreciated, involuntary guarding, is not appreciated. 17:05 Back: pain, is absent, ROM is normal. Vital Signs: 12:31 BP 115 / 86; Pulse 92; Resp 16; Temp 98.7; Pulse Ox 98% on R/A; Weight 120.2 kg; Height iw 6 ft. 5 in. (195.58 cm); Pain 0/10; 16:57 BP 143 / 95; Pulse 95; Resp 20; Temp 98.0(O); Pulse Ox 98% on R/A; mh5 18:22 BP 135 / 97; Pulse 90; Resp 16; Pulse Ox 98% on R/A; iw 19:04 BP 151 / 90; Pulse 85; Resp 18; Temp 97.7(O); Pulse Ox 99% on R/A; mh5 12:31 Body Mass Index 31.42 (120.20 kg, 195.58 cm) iw MDM: 16:41 Patient medically screened. cp 17:00 Differential diagnosis: abnormal EKG, cholecystitis, Cholelithiasis esophagitis, cp pancreatitis, peptic ulcer disease, pericarditis, pneumothorax. 19:50 Data reviewed: vital signs, nurses notes, lab test result(s), EKG, radiologic studies, cp plain films, ultrasound, and as a result, I will discharge patient. 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 19:50 Response to treatment: the patient's symptoms have markedly improved after treatment, cp and as a result, I will discharge patient. 07/17 16:50 Order name: Basic Metabolic Panel; Complete Time: 17:36 07/17 17:36 Interpretation: Normal except: GLUC 116. 07/17 16:50 Order name: CBC with Diff; Complete Time: 17:36 07/17 18:00 Interpretation: Normal except: MCV 93.6; MPV 7.2. 07/17 16:50 Order name: LFT's; Complete Time: 17:36 07/17 16:50 Order name: Magnesium; Complete Time: 17:36 07/17 16:50 Order name: NT PRO-BNP; Complete Time: 17:36 07/17 16:50 Order name: PT-INR; Complete Time: 17:36 07/17 16:50 Order name: Troponin (emerg Dept Use Only); Complete Time: 17:36 07/17 16:50 Order name: XRAY Chest (1 view) 07/17 16:50 Order name: EKG; Complete Time: 16:51 07/17 16:50 Order name: Lipase; Complete Time: 17:36 07/17 17:38 Order name: US Abdomen Limited: RUQ abdomen pain 07/17 16:50 Order name: Cardiac monitoring; Complete Time: 17:07 07/17 16:50 Order name: EKG - Nurse/Tech; Complete Time: 16:53 07/17 16:50 Order name: IV Saline Lock; Complete Time: 17:07 cp 07/17 16:50 Order name: Labs collected and sent; Complete Time: 17:07 cp 07/17 16:50 Order name: O2 Per Protocol; Complete Time: 17:07 cp 07/17 16:50 Order name: O2 Sat Monitoring; Complete Time: 17:07 cp EC:40 Rate is 91 beats/min. Rhythm is regular. DE interval is normal. QRS interval is normal. cp QT interval is normal. T waves are Inverted in leads III, aVR. Interpreted by me. Reviewed by me. Administered Medications: 17:02 Not Given (Physician Discretion; VO change to Pepcid): ProTONIX 40 mg IVP once ca1 17:04 Drug: Pepcid 20 mg Route: IVP; Site: right antecubital; ca1 17:06 Drug: Zofran (Ondansetron) 4 mg Route: IVP; Site: right antecubital; ca1 Disposition: 07/18 08:48 Co-signature as Attending Physician, Emre Damon MD. rn Disposition: 07/17/20 19:50 Discharged to Home. Impression: Other chest pain, Pain localized to upper abdomen - RUQ. - Condition is Stable. - Discharge Instructions: Abdominal Pain, Adult, Peptic Ulcer, Food Choices for Peptic Ulcer Disease. - Prescriptions for Protonix 40 mg Oral Tablet - take 1 tablet by ORAL route once daily; 30 tablet. Zofran 4 mg Oral Tablet - take 1 tablet by ORAL route every 12 hours As needed; 20 tablet. - Medication Reconciliation Form, Thank You Letter, Antibiotic Education, Prescription Opioid Use form. - Follow up: Reggie Nobles MD; When: 2 - 3 days; Reason: Recheck today's complaints. - Problem is new. - Symptoms have improved. Signatures: Dispatcher [employer] Betty Castle RN RN iw Nieto, Roman, MD MD rn Page, Corey, PA PA cp Martinez, Maria 5 Patrica Linder RN RN ca1 Corrections: (The following items were deleted from the chart) 07/17 20:12 19:50 07/17/2020 19:50 Discharged to Home. Impression: Other chest pain; Pain localized mh5 to upper abdomen - RUQ. Condition is Stable. Forms are Medication Reconciliation Form, Thank You Letter, Antibiotic Education, Prescription Opioid Use. Follow up: Reggie Nobles; When: 2 - 3 days; Reason: Recheck today's complaints. Problem is new. Symptoms have improved. cp
[2020-07-17 20:58] VITALS: BP 151/90; TEMP 97.7; O2SAT 99
== END 2020-07-17 20:12 | disposition home or self-care (01) ==
LOC: ER 12:11
DX: R10.11 Right upper quadrant pain (principal); I10 Essential (primary) hypertension; F41.9 Anxiety disorder, unspecified; Z98.84 Bariatric surgery status
CPT/HCPCS: 93005; 85025; 80048; 36415; 83735; 85610; 80076; 84484; 83690; 83880; 71045; 76705; 96375; 96374; 99285; J2405

== ENCOUNTER 2020-08-11 20:31 | Emergency (ER) | payer OTHER, SELFPAY ==
--- OUTSIDE RECORDS SUMMARY | 2020-08-11 20:35 | XMS REPORT | Continuity of Care Document ---
:1980 Author Organization [facility] Care Team Providers Name Role Phone [facility] Unavailable Un available Problems Problem Status Onset Classification Date Comments Sourc e Date Reported [id number], MORBID Active 01/06/20 OBESITY 16 [facility] [id number], REFLUX Active 11/30/[address] Acid reflux Resolved Problem 02/05/2016 (finding) [facility] Hypertensive Active Problem 02/05/2016 disorder, [facility] systemic arterial Ci ty (disorder) C/O - low back Active Problem 02/05/2016 pain [facility] (context-dependen Ci ty t category) 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) [facility] Morbid obesity Active Problem 02/05/2016 MH (disorder) [facility] ILLNESS, Active MH UNSPECIFIED [facility] Medications Medication Details Route Status Patient Ordering Order Source Instructions Provider Date Lactated Ringers 1,000 mL, Inactive 1,000 mL Rate: 80 2015 [facility] ml/hr, Infuse [facility] over: 12.5 hr, Route: IV, Dosing Weight 148.182 kg, Total Volume: 1,000, Start date: 02/02/16 9:00:00 CDT, Duration: 30 day, Stop date: 03/03/16 8:59:00 CDT Enoxaparin Notes: (Same No Longer as: Lovenox) Active 2015 [facility] Ketorolac 4 days No Longer MEDICATION Active 2015 [facility] WASTE [facility] Product Size: 30 mg Product Wasted: ___ mg Sodium Chloride 25 mL, Route: No Longer 0.9% IV IV, Start Active 2015 [facility] date: 02/01/16 [facility] 14:05:00 CDT, Duration: 30 day, Stop date: 03/02/16 14:04:00 CDT, PRN Line Flush BD Normal Saline Notes: (Same No Longer Flush as: BD Active 2015 [facility] Posiflush) [facility] BD Normal Saline Notes: (Same No Longer Flush as: BD Active 2015 [facility] Posiflush) [facility] Dilaudid Notes: (Same No Longer as: Dilaudid) Active 2015 [facility] Lactated Ringers 1,000 mL, Inactive Injection IV 1000 Rate: 80 2016 Memor ial mL ml/hr, Infuse City over: 12.5 hr, Route: IV, Dosing Weight 148.182 kg, Total Volume: 1,000, Priority: STAT, Start date: 02/01/16 11:34:00 CDT, Duration: 30 day, Stop date: 03/02/16 11:33:00 CDT Calcium Chloride 1,000 mL, No Longer 0.0014 MEQ/ML / Rate: 125 Active 2015 Memori al Potassium ml/hr, Infuse [facility] Chloride 0.004 over: 8 hr, MEQ/ML / Sodium Route: IV, Chloride 0.103 Dosing Weight MEQ/ML / Sodium 148.182 kg, Lactate 0.028 Total Volume: MEQ/ML Injectable 1,000, Start Solution date: 02/01/16 11:34:00 CDT, Stop date: 02/02/16 9:00:00 CDT Promethazine 12.5 mg, 50 No Longer mL, Route: Active 2015 [facility] IVPB, Drug City form: SOLN, Q4H, Dosing Weight 148.182, kg, PRN Nausea & Vomiting, Start date: 02/01/16 11:34:00 CDT, Duration: 30 day, Stop date: 03/02/16 11:33:00 CDT Ondansetron Notes: (Same No Longer as: Zofran) Active 2015 [facility] MEDICATION City WASTE Product Size: 4 mg Product Wasted: ___ mg Hydromorphone Notes: (Same Inactive as: Dilaudid) 2015 [facility] Naloxone Notes: Same as Inactive Narcan 2015 [facility] Meperidine Notes: (Same Inactive As: Demerol) 2015 [facility] Flumazenil Notes: (Same Inactive as: Romazicon) 2015 [facility] Diphenhydramine Notes: (Same Inactive as: Benadryl) 2015 [facility] Ondansetron Notes: (Same Inactive as: Zofran) 2016 [facility] MEDICATION City WASTE Product Size: 4 mg Product Wasted: ___ mg Labetalol Notes: (Same Inactive as: Normodyne, 2016 [facility] Trandate) Push City over 2 minutes Give bolus over 2-3 minutes. Ketorolac 4 days Inactive MEDICATION 2015 [facility] WASTE City Product Size: 30 mg Product Wasted: ___ mg Morphine Notes: (Same Inactive as:MORPhine 2015 [facility] Sulfate) [facility] Fentanyl Notes: (Same Inactive as: Sublimaze) 2015 [facility] Preservative [facility] free. Naloxone Notes: Same as Inactive Narcan 2015 [facility] Flumazenil Notes: (Same Inactive as: Romazicon) 2015 [facility] Ondansetron Notes: (Same Inactive as: Zofran) 2015 [facility] MEDICATION City WASTE Product Size: 4 mg Product Wasted: ___ mg Ancef Notes: Same Inactive as: Ancef 2015 [facility] Ondansetron Notes: (Same No Longer as: Zofran) Active 2015 [facility] MEDICATION City WASTE Product Size: 4 mg Product Wasted: ___ mg Promethazine Notes: Do not No Longer give IV push. Active 2015 [facility] (Same as: [facility] Phenergan) Naloxone Notes: Same as No Longer Narcan Active 2015 [facility] Ephedrine Notes: (Same No Longer as: ePHEDrine Active 2015 [facility] Sulfate) [facility] Diphenhydramine Notes: (Same No Longer H as: Benadryl) Active 2015 [facility] Flumazenil Notes: (Same No Longer as: Romazicon) Active 2015 [facility] Sodium Chloride 500 mL, Rate: No Longer 0.154 MEQ/ML 125 ml/hr, Active 2015 [facility] Injectable Infuse over: 4 City Solution hr, Route: IV, Dosing Weight 148.182 kg, Total Volume: 500, Start date: 12/02/15 8:11:00 CDT, Duration: 30 day, Stop date: 01/01/16 8:10:00 CDT Labetalol Notes: (Same No Longer as: Normodyne, Active 2015 [facility] Trandate) Push City over 2 minutes Give bolus over 2-3 minutes. Hydralazine Notes: (Same No Longer as: Active 2015 [facility] Apresoline) City Push over 5 minutes esmolol Notes: (Same No Longer as: Brevibloc) Active 2015 [facility] Metoprolol Notes: (Same No Longer as: Lopressor) Active 2015 [facility] Push over 2 City minutes carisoprodol 350 350 mg = 1 Active mg oral tablet tab, PO, BID, 2015 Mem orial 0 Refill(s) [facility] lisinopril 20 mg 20 mg = 1 tab, Active oral tablet PO, Daily, # 2015 Memoria l 30 tab, 0 City Refill(s) HYDROcodone 10 mg 10 mg = 1 cap, Active oral capsule, PO, Q12H, 0 2015 Memori al extended release Refill(s) [facility] Allergies, Adverse Reactions, Alerts No Known Medication Allergies Immunizations No Data Provided for This Section Results Order Name Results Value Reference Date Interpretation Comments Lilo rce Range CHEM PANEL eGFR 118 02/01 Result Comment: [facility] eGFR is City calculated using the CKD-EPI [...] 0.50 - 02/01 MH Lvl 1.40 /2015 [facility] CHEM PANEL Glucose Lvl 105 70 - 99 02/01 [facility] CHEM PANEL Calcium Lvl 8.7 8.5 - 10.5 02/01 /2015 [facility] CHEM PANEL CO2 23 24 - 32 02/01 /2015 [facility] CHEM PANEL Chloride Lvl 108 95 - 109 02/01 [facility] CHEM PANEL Potassium 4.0 3.5 - 5.1 / MH Lvl /2015 [facility] CHEM PANEL Sodium Lvl 142 135 - 145 02/01 [facility] CHEM PANEL BUN 12 7 - 22 02/01 [facility] CHEM PANEL AGAP 15.0 10.0 - 02/01 20.0 [facility] HEMATOLOGY MCH 27.2 27.0 - 02/01 MH 31.0 [facility] HEMATOLOGY MCHC 33.0 32.0 - 02/01 MH 36.0 [facility] HEMATOLOGY RDW 12.9 11.5 - 02/01 MH 14.5 [facility] HEMATOLOGY Hgb 13.4 14.0 - 02/01 MH 18.0 [facility] HEMATOLOGY Hct 40.7 42.0 - 02/01 MH 54.0 [facility] HEMATOLOGY MCV 82.6 80.0 - 02/01 MH 94.0 [facility] HEMATOLOGY Platelet 250 133 - 450 02/01 [facility] HEMATOLOGY MPV 7.8 7.4 - 10.4 02/01 [facility] HEMATOLOGY WBC 12.3 3.7 - 10.4 02/01 [facility] HEMATOLOGY RBC 4.93 4.70 - 02/01 MH 6.10 [facility] HEMATOLOGY Segs-Bands # 9.6 1.5 - 8.1 02/01 [facility] HEMATOLOGY Lymphocytes 1.9 1.0 - 5.5 02/01 MH # /2015 [facility] HEMATOLOGY Monocytes # 0.5 0.0 - 0.8 02/01 [facility] HEMATOLOGY Eosinophils 0.0 0.0 - 0.5 02/01 MH # /2015 [facility] HEMATOLOGY Basophils # 0.2 0.0 - 0.2 02/01 [facility] HEMATOLOGY Monocytes 4.3 2.0 - 12.0 02/01 [facility] HEMATOLOGY Eosinophils 0.0 0.0 - 4.0 02/01 MH /2015 [facility] HEMATOLOGY Basophils 1.8 0.0 - 1.0 02/01 [facility] HEMATOLOGY Segs 78.6 45.0 - 02/01 MH 75.0 [facility] HEMATOLOGY Lymphocytes 15.3 20.0 - 02/01 MH 40.0 /2015 [facility] HEMATOLOGY PTT 36.0 22.9 - 02/01 MH 35.8 /2015 [facility] HEMATOLOGY PT 15.5 12.0 - 02/01 MH 14.7 [facility] HEMATOLOGY INR 1.20 0.85 - 02/01 MH 1.17 /2015 [facility] BLOOD BANK ABO/Rh A POS 01/31 RESULTS /2015 [facility] BLOOD BANK Antibody Negative 01/31 RESULTS Scrn (02/01/16 8:22 AM) [facility] CHEM PANEL Vitamin D, 24 30 - 100 01/18 25-OH, Total [facility] CHEM PANEL ALT 35 0 - 65 01/18 [facility] CHEM PANEL CO2 30 24 - 32 01/18 [facility] CHEM PANEL Albumin Lvl 3.9 3.5 - 5.0 01/18 [facility] CHEM PANEL AST 23 0 - 37 01/18 [facility] CHEM PANEL eGFR 104 01/18 Result Comment: [facility] eGFR is City calculated using the CKD-EPI [...] Creatinine 0.96 0.50 - 01/18 Lvl 1.40 [facility] CHEM PANEL BUN 16 7 - 22 01/18 MH /2015 [facility] CHEM PANEL Glucose Lvl 103 70 - 99 01/18 [facility] CHEM PANEL Sodium Lvl 140 135 - 145 01/18 [facility] CHEM PANEL Potassium 4.2 3.5 - 5.1 01/18 MH Lvl /2015 [facility] CHEM PANEL Chloride Lvl 102 95 - 109 01/18 [facility] CHEM PANEL Calcium Lvl 9.4 8.5 - 10.5 01/18 [facility] CHEM PANEL Bili Total 0.8 0.2 - 1.3 01/18 [facility] CHEM PANEL Alk Phos 137 39 - 136 01/18 MH [facility] CHEM PANEL Total 8.0 6.4 - 8.4 01/18 MH [facility] CHEM PANEL B/C Ratio 17 6 - 25 01/18 [facility] CHEM PANEL AGAP 12.2 10.0 - 01/18 MH 20.0 [facility] CHEM PANEL A/G Ratio 1.0 0.7 - 1.6 01/18 [facility] CHEM PANEL Globulin 4.1 2.0 - 4.0 01/18 [facility] HEMATOLOGY PTT 38.8 22.9 - 01/18 MH 35.8 /2015 [facility] HEMATOLOGY PT 14.1 12.0 - 01/18 MH 14.7 [facility] HEMATOLOGY INR 1.06 0.85 - 01/18 MH 1.17 /2015 [facility] HEMATOLOGY RDW 12.9 11.5 - 01/18 MH 14.5 [facility] HEMATOLOGY Platelet 277 133 - 450 01/18 [facility] HEMATOLOGY MCHC 33.0 32.0 - 01/18 MH 36.0 [facility] HEMATOLOGY MPV 7.1 7.4 - 10.4 01/18 MH [facility] HEMATOLOGY MCV 83.0 80.0 - 01/18 MH 94.0 [facility] HEMATOLOGY MCH 27.4 27.0 - 01/18 MH 31.0 [facility] HEMATOLOGY Hct 44.5 42.0 - 01/18 MH 54.0 /2015 [facility] HEMATOLOGY Hgb 14.7 14.0 - 01/18 MH 18.0 /2015 [facility] HEMATOLOGY RBC 5.36 4.70 - 01/18 MH 6.10 /2015 [facility] HEMATOLOGY WBC 8.3 3.7 - 10.4 01/18 MH /2015 [facility] HEMATOLOGY Monocytes # 0.4 0.0 - 0.8 01/18 [facility] HEMATOLOGY Basophils # 0.0 0.0 - 0.2 01/18 MH [facility] HEMATOLOGY Eosinophils 0.7 0.0 - 4.0 01/18 MH [facility] HEMATOLOGY Basophils 0.5 0.0 - 1.0 01/18 [facility] HEMATOLOGY Eosinophils 0.1 0.0 - 0.5 01/18 MH # /2016 [facility] HEMATOLOGY Lymphocytes 2.4 1.0 - 5.5 01/18 MH # /2016 [facility] HEMATOLOGY Segs-Bands # 5.3 1.5 - 8.1 01/18 [facility] HEMATOLOGY Monocytes 4.8 2.0 - 12.0 01/18 [facility] HEMATOLOGY Lymphocytes 29.4 20.0 - 01/18 MH 40.0 /2015 [facility] HEMATOLOGY Segs 64.6 45.0 - 01/18 MH 75.0 [facility] PARATHYROID PTH Intact 59.5 11.1 - 01/18 MH PROFILE 79.5 /2015 [facility] SPECIAL Hgb A1C 5.5 <=5.6 % 01/18 CHEMISTRY /2015 [facility] URINE AND UA <=1.0 0.1 - 1.0 01/18 STOOL Urobilinogen mg/dL [facility] URINE AND UA Ketones Negative 01/18 STOOL /2015 [facility] URINE AND Micro? Performed 01/18 STOOL *NA* /2015 [facility] (01/19/16 11:15 AM) [facility] URINE AND UA Color Light Yellow Yellow 01/18 STOOL *NA* /2015 [facility] (01/19/16 11:15 AM) [facility] URINE AND UA Turbidity Clear Clear 01/18 STOOL (01/19/16 11:15 AM) /2015 [facility] URINE AND UA Spec Grav 1.017 <=1.030 01/18 STOOL [facility] URINE AND UA Protein Negative Negative 01/18 STOOL mg/dL mg/dL [facility] URINE AND UA Leuk Est Negative Negative 01/18 STOOL (01/19/16 11:15 AM) [facility] URINE AND UA Bili Negative Negative 01/18 STOOL *NA* /2015 [facility] Glucose Negative Negative 01/18 STOOL mg/dL mg/dL /2015 [facility] URINE AND UA pH 5.0 5.0 - 8.0 01/18 STOOL /2015 [facility] URINE AND UA RBC <1 0 - 2 01/18 STOOL /2015 [facility] URINE AND UA Mucus Few /LPF None Seen 01/18 STOOL /LPF /2015 [facility] URINE AND UA Blood Small Negative 01/18 STOOL *ABN* /2015 [facility] (01/19/16 11:15 AM) [facility] URINE AND UA Nitrite Negative Negative 01/[address] [facility] (01/19/16 11:15 AM) [facility] Pathology Reports No Data Provided for This Section Diagnostic Reports Report Value Date Source Chest 2 views DX EXAM: PA AND LATERAL CHEST X RAY 01/19/2016 [facility] DATE:- 01/19/2016 10:42 AM CDT . CLINICAL [...] Comments Source Systolic (mm Hg) 157 02/03/2016 [facility] Diastolic (mm Hg) 89 02/03/2016 [facility] Heart Rate 56 02/03/2016 [facility] Cit y Temperature Oral (F) 98 F 02/03/2016 [facility] Respitory Rate 20 02/03/2016 [facility] ity Temperature Oral (F) 98.1 F 02/02/2016 [facility] Respitory Rate 18 02/02/2016 [facility] ity Systolic (mm Hg) 136 02/02/2016 [facility] Diastolic (mm Hg) 82 02/02/[address] [facility] Heart Rate 53 02/02/2016 [facility] Cit y Systolic (mm Hg) 136 02/02/2016 [facility] Diastolic (mm Hg) 75 02/02/2016 [facility] Heart Rate 79 02/02/2016 [facility] Whitney y Respitory Rate 17 02/02/2016 [facility] Graeme skinner Temperature Oral (F) 98.2 F 02/02/2016 [facility] Height 180.34 cm 01/19/2016 [facility] y Weight 148.182 01/19/2016 [facility] y BMI Calculated 45.56 01/19/2016 [facility] Graeme ity Weight 148.182 12/02/2015 [facility] Cit y Height 182.88 cm 12/02/2015 [facility] y BMI Calculated 44.31 12/02/2015 [facility] Graeme itmichael Encounters Location Location Encounter Encounter Reason Attending ADM DC Stat us Source Details Type Number For Provider Date Date Visit [facility] Bedded [id number] [facility] 12/01 12/01 [facility] [id number] [facility]31 [facility] Procedures Procedure Code Date Perfomer Comments Source Epidural steroid [id number] [facility] ia injection [facility] Incision and [id number] [facility] drainage of [facility] abscess of villa Assessment and Plan Assessment and Plan Date Source Extracted from:Title: Clinical Document 02/03/2016 [facility] Author: Vincent Patel MD Date: 02/02/16 Progress Note - Daily [facility] Completed: Jan, 13:05 by Vincent Patel MD RM: [phone] [id number], DEMETRIA PAREKH ART URO 35y (: 1980) M Attending: Vincent Patel MD Service: General Surgery Service Reason for Admission: [id number], MORBID OBESITY Working DRG: None Documented Code [...] Bello still necessary (Yes/No): Line still wesleyvíctor tiny (Yes/No): Vitals Tmp(F) Pulse BP RR SpO2 [...] Tot 322 600 -278 01/31 24hr Tot [id number] Medications (10) Active Scheduled Meds (2): 02/01/16 enoxaparin 30 mg SUB-Q [id number] 02/01/16 ketOROLAC 30 mg IVP Q6H Unscheduled Meds: None PRN Meds (6): 02/01/16 Sodium Chloride 0.9% IV 25 mL IV PRN 02/01/16 hydromorphone (Dilaudid) 0.5 mg IV Q3H 02/01/16 ondansetron 4 mg IVP Q12H 02/01/16 promethazine 12.5 mg IVPB Q4H 300 ml/hr 02/01/16 sodium chloride (BD Normal Saline Flush) 5 mL IV UT N 07/13/16 sodium chloride (BD Normal Saline Flush) 10 [...] History Date Source Social History TypeResponse 01/19/2016 [facility] Alcohol Current, Type Beer, Liquor. Frequency: 3-5 [...]
--- OUTSIDE RECORDS SUMMARY | 2020-08-11 20:36 | XMS REPORT | Continuity of Care Document ---
:1980 Author Organization [facility] t Address [address] [place] [address] Care Team Providers Name Role Phone Srini CHAMBERLAIN, K.H. Attending Clinician Good Patel Attending Clinician Good Patel Admitting Clinician Problems Condition Condition Condition Status Onset Resolution Last Treating Co mments Source Name Details Category Date Date Treatment Clinician Date 70642, Diagnosis Active 2016-02-07 Mem oria MORBID 6-17 21:59:00 l OBESITY 28429, 00:00: [place] MORBID 00 OBESITY Active 01/06/2016 [facility] 44076, Diagnosis Active 2015-12-05 Mem oria REFLUX 5-11 11:03:00 l 07615, 00:00: [place] REFLUX 00 Active 11/30/2015 [facility] Acid Problem Resolve 2016-02-05 Kwadwo jase reflux d 00:26:43 l (finding) Acid [place] reflux (finding) Resolved Problem 02/05/2016 [facility] Hypertensi Problem Active 2016-02-05 M emoria ve 00:26:43 l disorder, [place] systemic Hypertensi arterial ve (disorder) disorder, systemic arterial (disorder) Active Problem 02/05/2016 [facility] C/O - low Problem Active 2016-02-05 Me moria back pain 00:26:43 l (context-d C/O - Emily nn ependent low back category) pain (context-d ependent category) Active Problem 02/05/2016 [facility] Degenerati Problem Active 2016-02-05 M emoria on of 00:26:43 l interverte Andrae n bral disc Degenerati (disorder) on of interverte bral disc (disorder) Active Problem 02/05/2016 [facility] Morbid Problem Active 2016-02-05 Memor ia obesity 00:26:43 l (disorder) Morbid Herm johnny obesity (disorder) Active Problem 02/05/2016 [facility] ILLNESS, Diagnosis Active 2016-02-07 M emoria UNSPECIFIE 21:59:00 l D ILLNESS, Andrae n UNSPECIFIE D Active [facility] Allergies, Adverse Reactions, Alerts This patient has no known allergies or adverse reactions. Social History Social Habit Start Date Stop Date Quantity Comments Source Social History 2016-01-19 2016-01-19 [facility] ermann 16:22:14 16:22:14 Medications Ordered Filled Start [...] ia -14 (Same as: l 04:30: Lovenox) [place] 00 Ketorolac No 4 days Memor ia 01-31 l 20:00: MEDICATION WASTE Product Size: 30 mg Product Wasted: ___ mg Sodium No 25 mL, Memoria Chloride 01-31 Route: IV, l 0.9% IV 19:05: Start [place] 00 date: 02/01/16 14:05:00 CDT, Duration: 30 day, Stop date: 03/02/16 14:04:00 CDT, PRN Line Flush BD Normal No Notes: Memori a Saline -13 (Same as: l Flush 19:05: BD [place] 00 Posiflush) BD Normal No Notes: Memori a Saline 7-13 (Same as: l Flush 19:04: BD [place] 00 Posiflush) Dilaudid No Notes: Memoria 7-13 (Same as: l 16:37: Dilaudid) Lactated No 1,000 mL, Kwadwo jase Ringers -13 Rate: 80 l Injection 16:34: ml/hr, Andrae n IV 1000 mL 00 Infuse over: 12.5 hr, Route: IV, Dosing Weight 148.182 kg, Total Volume: 1,000, Priority: STAT, Start date: 02/01/16 11:34:00 CDT, Duration: 30 day, Stop date: 03/02/16 11:33:00 CDT Calcium No 1,000 mL, Memor ia Chloride 01-31 Rate: 125 l 0.0014 16:34: ml/hr, [place] MEQ/ML / 00 Infuse Potassium over: 8 [...] mg Hydromorpho No Notes: Kwadwo jase ne 7-13 (Same as: l 16:33: Dilaudid) Naloxone No Notes: Memoria 7-13 Same as l 16:33: Narcan Meperidine No Notes: Memor ia 7-13 (Same As: l 16:33: Demerol) [place] 00 Flumazenil No Notes: Memor ia 7-13 (Same as: l 16:33: Romazicon) [place] 00 Diphenhydra No Notes: Kwadwo jase mine 7-13 (Same as: l 16:33: Benadryl) [place] 00 Ondansetron No Notes: Kwadwo jase 7-13 (Same as: l 16:33: Zofran) [place] 00 MEDICATION WASTE Product Size: 4 mg Product Wasted: ___ mg Labetalol No Notes: Memori a 7-13 (Same as: l 16:33: Normodyne, [place] 00 Trandate) Push over 2 minutes Give bolus over 2-3 minutes. Ketorolac No 4 days Memor ia 7-13 l 16:33: MEDICATION [place] 00 WASTE Product Size: 30 mg Product Wasted: ___ mg Morphine No Notes: Memoria 7-13 (Same l 16:33: as:MORPhin [place] 00 e Sulfate) Fentanyl No Notes: Memoria 7-13 (Same as: l 16:33: Sublimaze) [place] 00 Preservat kallie free. Naloxone No Notes: Memoria 7-13 Same as l 12:44: Narcan [place] 00 Flumazenil No Notes: Memor ia 7-13 (Same as: l 12:44: Romazicon) [place] 00 Ondansetron No Notes: Kwadwo jase 7-13 (Same as: l 12:44: Zofran) [place] 00 MEDICATION WASTE Product Size: 4 mg Product Wasted: ___ mg Ancef No Notes: Memoria 7-13 Same as: l 05:00: Ancef [place] 00 Ondansetron No Notes: Kwadwo jase 5-13 (Same as: l 13:11: Zofran) [place] 00 MEDICATION WASTE Product Size: 4 mg Product Wasted: ___ mg Promethazin No Notes: Do M emoria e 5-13 not give l 13:11: IV push. [place] 00 (Same as: Phenergan) Naloxone No Notes: Memoria 5-13 Same as l 13:11: Narcan Ephedrine No Notes: Memori a 5-13 (Same as: l 13:11: ePHEDrine Sulfate) Diphenhydra No Notes: Kwadwo jase mine 5-13 (Same as: l 13:11: Benadryl) Flumazenil No Notes: Memor ia 5-13 (Same as: l 13:11: Romazicon) Sodium No 500 mL, Memoria Chloride -13 Rate: 125 l 0.154 13:11: ml/hr, MEQ/ML 00 Infuse Injectable over: 4 Solution hr, Route: IV, Dosing Weight 148.182 kg, Total Volume: 500, Start date: 12/02/15 8:11:00 CDT, Duration: 30 day, Stop date: 01/01/16 8:10:00 CDT Labetalol No Notes: Memori a 5-13 (Same as: l 13:11: Normodyne, Trandate) Push over 2 minutes Give [...] tab, PO, l tablet 12:48: Daily, # [place] 00 30 tab, 0 Refill(s) HYDROcodone Yes 10 mg = 1 M emoria 10 mg oral 5-13 cap, PO, l capsule, 12:48: Q12H, 0 Andrae n extended 00 Refill(s) release Vital Signs Vital Name Observation Time Observation Value Comments Source Systolic (mm Hg) 2016-02-03 01:00:00 Kwadwo rial [place] Diastolic (mm Hg) 2016-02-03 01:00:00 Mem orial [place] Heart Rate 2016-02-03 01:00:00 [facility] [place] Temperature Oral (F) 2016-02-03 01:00:00 98 F [facility] [place] Respitory Rate 2016-02-03 01:00:00 Memori al [place] Temperature Oral (F) 2016-02-02 20:58:00 98.1 F [facility] [place] Respitory Rate 2016-02-02 20:58:00 Memori al [place] Systolic (mm Hg) 2016-02-02 20:58:00 Kwadwo rial [place] Diastolic (mm Hg) 2016-02-02 20:58:00 Mem orial [place] Heart Rate 2016-02-02 20:58:00 [facility] [place] Systolic (mm Hg) 2016-02-02 17:07:00 Kwadwo rial [place] Diastolic (mm Hg) 2016-02-02 17:07:00 Mem orial [place] Heart Rate 2016-02-02 17:07:00 [facility] [place] Respitory Rate 2016-02-02 17:07:00 Memori al [place] Temperature Oral (F) 2016-02-02 17:07:00 98.2 F [facility] [place] Height 2016-01-19 15:41:00 180.34 cm [facility] [place] Weight 2016-01-19 15:41:00 [facility] [place] BMI Calculated 2016-01-19 15:41:00 Memori al [place] Weight 2015-12-02 12:45:00 [facility] [place] Height 2015-12-02 12:45:00 182.88 cm [facility] [place] BMI Calculated 2015-12-02 12:45:00 Memori al [place] Procedures Procedure Date / Time Performed Performing Clinician [facility] e Epidural steroid Memorial Andrae n injection Incision and drainage of Memoria l [place] abscess of villa Encounters Start End Encounter Admission Attending Care Care Encounter Source Date/Time Date/Time Type Type Clinicians Facility Department ID 2020-04-14 2020-04-14 [facility] [id number] 00:00:00 00:00:00 Royal Lopez [id number] [id number] 0[facility] Deangelo 2016-02-01 2016-02-02 Outpatient Primomo, [facility] [id number] 11:34:00 21:41:00 Vincent Funk 2015-12-02 2015-12-02 Outpatient Primomo, [facility] [id number] 07:06:00 09:05:00 Vincent Cathy Funk Results Test Description Test Time Test Comments [...] code = MCH) 27.2 pg 27.0-31.0 [facility] QljghhoLFNSSQFJFY5752-27-68 10:38:0033.0[facility] 2016-02-02 10:38:0012.9[facility] CzlmkzaUHIGVRTGAC3464-80-42 10:38:0013.4[facility] DhspxzkWWGPEQOXQB2837-14-27 10:38:0040.7[facility] AuztsvjUKVEWMQKOR2619-96-16 10:38:0082.6[facility] IhtrykdDXUYXNHZVL1424-21-16 10:38:08563Ihhttpin [place] RDQKJSJNJP1178-36-31 10:38:007.8[facility] XgaifhhVWZRKQTRJW4750-30-22 10:38:00 12.3[facility] ChrcuoaMNFWKWFGMX4187-94-58 10:38:004.93[facility]ann[facility]MATOLOGY 2016-02-02 10:38:009.6[facility] IfuhmmyVAKCVCKSZL2320-42-13 10:38:001.9[facility] WgiorviBCCWOBVJAR7542-27-62 10:38:000.5[facility] DxxlrvgXGLEZGCTHC7548-53-66 10:38:000.0[facility] OyjavwnDOHTILVNSA5877-25-79 10:38:000.2[facility] HKWHZDFCYE6482-61-59 10:38:004.3[facility] ZbdoywcPVLQCMUGFC9468-90-32 10:38:000.0 [facility] SxmflukTGYPHJTDEX4323-17-39 10:38:001.8[facility]annHEMATOLOGY 2016-02-02 10:38:0078.6[facility] FfkmhhyMDGAKSRHYK0527-25-89 10:38:0015.3[facility] PfjcepeHHHYYWOLVZ5481-39-46 10:38:00 Test Item Value Reference Range Interpretation Comments PTT (test code = PTT) 36.0 s 22.9-35.8 Memorial GfqcloyNCDIAYGYII7528-70-14 10:38:00 Test Item Value Reference Range Interpretation Comments PT (test code = PT) 15.5 s 12.0-14.7 [facility] PdspljeQSQWRRVJKL0932-19-54 10:38:001.20[facility]annBLOOD BANK LXCHHFX6156-06-45 13:22:00Negative (02/01/16 8:22 AM)[facility] HermannCHEM PANEL 2016-01-19 16:50:0024[facility] HermannCHEM SLMRX2700-49-48 16:50:0035[facility] HermannCHEM JSSDW0696-36-75 16:50:0030[facility]annCHEM BITDH8175-65-96 16:50:003.9[facility] HermannCHEM ZTCMG5679-25-91 16:50:0023[facility]annCHEM HMOCL1677-67-96 16:50:34779Qceytjyo HermannCHEM IQRZM7004-35-95 16:50:000.96 [facility]annCHEM RJLAW4132-61-11 16:50:0016[facility] HermannCHEM PANEL 2016-01-19 16:50:77614Qmnrhzlh HermannCHEM MXNMM3978-91-64 16:50:29419Heprsgqj HermannCHEM LCLWQ3524-04-65 16:50:004.2[facility]annCHEM ESOFQ6739-43-82 16:50:10051Gpnfllpw HermannCHEM YONXW7711-71-90 16:50:009.4[facility] HermannCHEM CMSEJ1408-73-53 16:50:000.8[facility] HermannCHEM WCUFS6327-00-35 16:50:25892 [facility]annCHEM IDIOC8087-58-20 16:50:008.0[facility] HermannCHEM PANEL 2016-01-19 16:50:0017[facility] HermannCHEM MZLRO9898-57-05 16:50:0012.2[facility] HermannCHEM NRQGB6978-48-03 16:50:001.0[facility] HermannCHEM LZFMF5761-21-83 16:50:004.1[facility] VzgyldgBPZUWYDJTS4854-92-21 16:50:00 Test Item Value Reference Range Interpretation Comments PTT (test code = PTT) 38.8 s 22.9-35.8 [facility] QqioaaxRLHGJAQZBP6309-43-17 16:50:00 Test Item Value Reference Range Interpretation Comments PT (test code = PT) 14.1 s 12.0-14.7 [facility] NdgznwcZNELRKHAXS4368-32-53 16:50:001.06[facility]annHEMATOLOGY 2016-01-19 16:50:0012.9[facility] MimfenaDWUZEWMYQG4842-45-66 16:50:45251Xohzsrwo DxdtvkxMVMRQDGPUM7697-69-48 16:50:0033.0[facility] SpwlraxFKPJOSMQHM5742-80-39 16:50:007.1[facility] NovbbgpCWQBYECGOJ8093-99-35 16:50:0083.0[facility] [place] EHZLCFIKZM4997-06-41 16:50:00 Test Item Value Reference Range Interpretation Comments MCH (test code = MCH) 27.4 pg 27.0-31.0 [facility] TkjkeukLEEZCAINHD2647-26-95 16:50:0044.5[facility]annHEMATOLOGY 2016-01-19 16:50:0014.7[facility] SyprcnnNFXUHFPQLN5893-82-54 16:50:005.36[facility] PbvqhpnKJTRXEBBUF4009-71-90 16:50:008.3[facility] ModntomZQRBZMPJMS9461-89-08 16:50:000.4[facility] DllcukoYCYQDOYAIV7604-13-59 16:50:000.0[facility] [place] ODHADFDPWQ3194-25-40 16:50:000.7[facility] RnxpntxJZUEFRWOSY5705-10-58 16:50:000.5 [facility] YzuffpwUNIZFJKOBV1359-56-57 16:50:000.1[facility] HermannHEMATOLOGY 2016-01-19 16:50:002.4[facility] OhjtdojFSPNOUJXAO9999-92-02 16:50:005.3[facility] FkqjhkvXGYHPUKRFN5720-08-36 16:50:004.8[facility] FkdpblqXBKGUXAXKR6232-78-72 16:50:0029.4[facility] HgqksibQPPKMSSJDS7724-47-19 16:50:0064.6[facility] [place] PARATHYROID BUIUJKF5147-88-32 16:50:0059.5[facility] HermannSPECIAL CHEMISTRY 2016-01-19 16:50:005.5[facility] HermannURINE AND HBBEL3767-09-79 16:15:00 Performed *NA*(01/19/16 11:15 AM)[facility] YCPLP5103-31-87 16:15:00Light Yellow *NA*(01/19/16 11:15 AM)[facility] STOOL 2016-01-19 16:15:00Clear (01/19/16 11:15 AM)[facility] STOOL 2016-01-19 16:15:001.017[facility]ann[facility] AND MTDOG8021-91-78 16:15:00 Negative (01/19/16 11:15 AM)[facility] KZESB2505-69-13 16:15:00 Negative *NA*(01/19/16 11:15 AM)[facility] DSQGJ5471-52-31 16:15:005.0[facility]ann[facility] AND JMVXZ4196-51-77 16:15:00<1[facility]ann[facility] AND BDCWV6667-90-25 16:15:00Small *ABN*(01/19/16 11:15 AM)[facility] HermjohnnyURINE AND ZTUBO8899-84-32 16:15:00Negative (01/19/16 11:15 AM)[facility] [place]
[2020-08-11] MEDS ORDERED: NA CHLORIDE 0.9% 500 ML ONE (23:33)
[2020-08-11] MEDS ORDERED: ONDANSETRON 4 MG/2 ML VIAL ONE (23:33)
[2020-08-11 23:47] LABS: Basophils % 0.6 % (0-1.3); Hematocrit 40.7 % (39.6-49.0); Lymphocytes % 25.5 % (15.3-44.8); MPV 7.3 fL (7.6-11.3); RBC Red Blood Cell Count 4.37 M/uL (4.33-5.43)
[2020-08-11 23:48] LABS: Protime INR 1.03
[2020-08-11] MEDS ORDERED: LORazepam 2 MG/ML VIAL ONE (23:57)
[2020-08-12 00:10] LABS: ALT/SGPT 198 U/L (12-78); AST/SGOT 206 U/L (15-37); Albumin 4.1 g/dL (3.4-5.0); Alkaline Phosphatase 166 U/L (45-117); BUN Blood Urea Nitrogen 11 mg/dL (7-18); Bicarbonate 27 mmol/L (21-32); Bilirubin Direct 0.2 mg/dL (0-0.2); Bilirubin Total 0.6 mg/dL (0.2-1.0); Glucose Level 110 mg/dL (74-106); NT PRO-BNP 63 pg/mL (<125); Potassium 3.8 mmol/L (3.5-5.1); Sodium Level 136 mmol/L (136-145); Troponin (Emerg Dept Use Only) < 0.02 ng/mL (0.0-0.045)
--- NOTE | 2020-08-12 01:09 | ER ---
Nurse's Notes [facility] Name: Marquise Jhaveri Age: 39 yrs Sex: Male : 1980 Arrival Date: 08/11/2020 Time: 20:35 Bed 23 Private MD: Diagnosis: Dizziness and giddiness;Nausea;Underdosing of selective serotonin reuptake inhibitors;Essential (primary) hypertension;Alcohol abuse Presentation: 08/11 20:56 Chief complaint: Patient states: Shaky, anxious, dizzy, nausea, sweating, EMANUEL, ll1 palpitations for 1 day. States he is running out of dermSearch so he hasn't been talking it as prescribed. Face/head feels numb. Coronavirus screen: Client denies travel out of the [place] in the last 14 days. difficulty breathing, headache, muscle pain, nausea, shortness of breath, Client presents with at least one sign or symptom that may indicate coronavirus-19. Standard/surgical mask placed on the client. Ebola Screen: Patient denies travel to an Ebola-affected area in the 21 days before illness onset. Initial Sepsis Screen: Does the patient meet any 2 criteria? No. Patient's initial sepsis screen is negative. Does the patient have a suspected source of infection? No. Patient's initial sepsis screen is negative. Risk Assessment: Do you want to hurt yourself or someone else? Patient reports no desire to harm self or others. Onset of symptoms was August 11, 2020. 20:56 Method Of Arrival: Ambulatory ll1 20:56 Acuity: ARNULFO 3 ll1 Triage Assessment: 22:50 General: Appears distressed, uncomfortable, Behavior is cooperative, appropriate for bp age, anxious. Pain: Complains of pain in head. EENT: No deficits noted. Neuro: Reports dizziness, headache. Cardiovascular: No deficits noted. Respiratory: No deficits noted. GI: Reports nausea. : No signs and/or symptoms were reported regarding the genitourinary system. Derm: No deficits noted. Musculoskeletal: No deficits noted. Historical: - Allergies: 20:56 No Known Allergies; ll1 - PMHx: 20:56 Hypertension; gastric bypass; Anxiety; ll1 - PSHx: 20:56 Disc surgery; ll1 - Immunization history:: Flu vaccine is not up to date. - Social history:: Smoking status: Reported history of juuling and/or vaping. - Family history:: not pertinent. Screenin:50 Abuse screen: Denies threats or abuse. Denies injuries from another. Nutritional bp screening: No deficits noted. Tuberculosis screening: No symptoms or risk factors identified. Fall Risk None identified. Assessment: 22:50 General: SEE TRIAGE NOTE. bp 08/12 00:30 Reassessment: Patient appears in no apparent distress at this time. Patient is alert, rr5 oriented x 3, equal unlabored respirations, skin warm/dry/pink. add ons for laboratory extracted and sent. 01:14 Reassessment: Patient appears in no apparent distress at this time. Patient is alert, rr5 oriented x 3, equal unlabored respirations, skin warm/dry/pink. discharge instruction given and explained without complaints made. Vital Signs: 08/11 20:56 BP 173 / 104; Pulse 78; Resp 18; Temp 97.1; Pulse Ox 97% ; Weight 118.84 kg; Height 6 ll1 ft. (182.88 cm); Pain 6/10; 08/12 01:00 BP 143 / 103; Pulse 75; Resp 17; Pulse Ox 99% ; rr5 01:14 BP 133 / 95; Pulse 70; Resp 16; Pulse Ox 98% ; rr5 08/11 20:56 Body Mass Index 35.53 (118.84 kg, 182.88 cm) ll1 ED Course: 08/11 20:35 Patient arrived in ED. es 20:55 Arm band placed on. ll1 21:00 Triage completed. ll1 22:50 Patient has correct armband on for positive identification. Bed in low position. Call bp light in reach. Side rails up X2. 23:00 Inserted saline lock: 20 gauge in right forearm, using aseptic technique. ,using rr5 aseptic technique. inserted by bradford HIGGINBOTHAM Blood collected. 23:02 Adalid Capone MD is Attending Physician. etelvina 23:07 Bradford Escobar, ANAHY is Primary Nurse. bp 08/12 01:08 Ajith Womack MD is Referral Physician. etelvina 01:08 Qiana Marley MD is Referral Physician. etelvina 01:15 No provider procedures requiring assistance completed. IV discontinued, intact, rr5 bleeding controlled, No redness/swelling at site. Pressure dressing applied. Administered Medications: 08/11 23:20 CANCELLED (MED UNAVAILABLE): Cymbalta 60 mg PO once bp 23:37 Drug: NS 0.9% 500 ml Route: IV; Rate: bolus; Site: right forearm; mg2 08/12 00:50 Follow up: Response: No adverse reaction; IV Status: Completed infusion; IV Intake: rr5 500ml 08/11 23:37 Drug: Zofran (Ondansetron) 4 mg Route: IVP; Site: right forearm; mg2 08/12 00:40 Follow up: Response: No adverse reaction rr5 08/11 23:44 Drug: Ativan 1 mg Route: IVP; Site: right forearm; mg2 08/12 01:16 Follow up: Response: No adverse reaction rr5 Intake: 00:50 IV: 500ml; Total: 500ml. rr5 Outcome: 01:08 Discharge ordered by MD. main 01:15 Discharged to home ambulatory. rr5 01:15 Condition: stable 01:15 Discharge instructions given to patient, Instructed on discharge instructions, follow up and referral plans. medication usage, Demonstrated understanding of instructions, follow-up care, medications, Prescriptions given X 2. 01:16 Patient left the ED. rr5 Signatures: Adalid Capone MD MD cha Salyer, Edna es Peltier, Brian, RN RN bp Andre Castrejon RN RN [facility] Mo Son RN RN rr5 Lito Islas RN RN ll1
--- NOTE | 2020-08-12 01:09 | EDPHYS ---
Physician Documentation [facility] Name: Marquise Jhaveri Age: 39 yrs Sex: Male : 1980 Arrival Date: 08/11/2020 Time: 20:35 Bed 23 Private MD: ED Physician Adalid Capone HPI: 08/11 23:27 This 39 yrs old Male presents to ER via Ambulatory with complaints of etelvina Dizziness, Nausea, Headache. 23:27 The patient presents with dizziness, generalized weakness, lightheadedness. Onset: The etelvina symptoms/episode began/occurred 2 day(s) ago. Context: occurred at work. Modifying factors: The symptoms are alleviated by nothing, the symptoms are aggravated by nothing. Associated signs and symptoms: Pertinent positives: diaphoresis, nausea, near-syncope. Severity of symptoms: At their worst the symptoms were mild in the emergency department the symptoms are unchanged. Patient's baseline: Neuro:. The patient has not experienced similar symptoms in the past. Historical: - Allergies: 20:56 No Known Allergies; ll1 - PMHx: 20:56 Hypertension; gastric bypass; Anxiety; ll1 - PSHx: 20:56 Disc surgery; ll1 - Immunization history:: Flu vaccine is not up to date. - Social history:: Smoking status: Reported history of juuling and/or vaping. - Family history:: not pertinent. ROS: 23:27 Constitutional: Negative for fever, chills, and weight loss, Eyes: Negative for injury, etelvina pain, redness, and discharge, ENT: Negative for injury, pain, and discharge, Neck: Negative for injury, pain, and swelling, Cardiovascular: Negative for chest pain, palpitations, and edema, Respiratory: Negative for shortness of breath, cough, wheezing, and pleuritic chest pain, Abdomen/GI: Negative for abdominal pain, nausea, vomiting, diarrhea, and constipation, Back: Negative for injury and pain, : Negative for injury, bleeding, discharge, and swelling, MS/Extremity: Negative for injury and deformity, Skin: Negative for injury, rash, and discoloration, Neuro: Negative for headache, weakness, numbness, tingling, and seizure, Psych: Negative for depression, anxiety, suicide ideation, homicidal ideation, and hallucinations, Allergy/Immunology: Negative for hives, rash, and allergies, Endocrine: Negative for neck swelling, polydipsia, polyuria, polyphagia, and marked weight changes, Hematologic/Lymphatic: Negative for swollen nodes, abnormal bleeding, and unusual bruising. Exam: 23:27 Constitutional: This is a well developed, well nourished patient who is awake, alert, etelvina and in no acute distress. Head/Face: Normocephalic, atraumatic. Eyes: Pupils equal round and reactive to light, extra-ocular motions intact. Lids and lashes normal. Conjunctiva and sclera are non-icteric and not injected. Cornea within normal limits. Periorbital areas with no swelling, redness, or edema. ENT: Nares patent. No nasal discharge, no septal abnormalities noted. Tympanic membranes are normal and external auditory canals are clear. Oropharynx with no redness, swelling, or masses, exudates, or evidence of obstruction, uvula midline. Mucous membranes moist. Neck: Trachea midline, no thyromegaly or masses palpated, and no cervical lymphadenopathy. Supple, full range of motion without nuchal rigidity, or vertebral point tenderness. No Meningismus. Chest/axilla: Normal chest wall appearance and motion. Nontender with no deformity. No lesions are appreciated. Cardiovascular: Regular rate and rhythm with a normal S1 and S2. No gallops, murmurs, or rubs. Normal PMI, no JVD. No pulse deficits. Respiratory: Lungs have equal breath sounds bilaterally, clear to auscultation and percussion. No rales, rhonchi or wheezes noted. No increased work of breathing, no retractions or nasal flaring. Abdomen/GI: Soft, non-tender, with normal bowel sounds. No distension or tympany. No guarding or rebound. No evidence of tenderness throughout. Back: No spinal tenderness. No costovertebral tenderness. Full range of motion. Skin: Warm, dry with normal turgor. Normal color with no rashes, no lesions, and no evidence of cellulitis. MS/ Extremity: Pulses equal, no cyanosis. Neurovascular intact. Full, normal range of motion. Neuro: Awake and alert, GCS 15, oriented to person, place, time, and situation. Cranial nerves II-XII grossly intact. Motor strength 5/5 in all extremities. Sensory grossly intact. Cerebellar exam normal. Normal gait. Psych: Awake, alert, with orientation to person, place and time. Behavior, mood, and affect are within normal limits. 23:42 Musculoskeletal/extremity: DVT Exam: No signs of deep vein thrombosis. no pain, no etelvina swelling, no tenderness, negative Homans' sign noted on exam, no appreciated bluish discoloration, no erythema, no increased warmth. 23:48 ECG was reviewed by the Attending Physician. etelvina Vital Signs: 20:56 BP 173 / 104; Pulse 78; Resp 18; Temp 97.1; Pulse Ox 97% ; Weight 118.84 kg; Height 6 ll1 ft. (182.88 cm); Pain 6/10; 08/12 01:00 BP 143 / 103; Pulse 75; Resp 17; Pulse Ox 99% ; rr5 01:14 BP 133 / 95; Pulse 70; Resp 16; Pulse Ox 98% ; rr5 08/11 20:56 Body Mass Index 35.53 (118.84 kg, 182.88 cm) ll1 MDM: 08/11 23:02 Patient medically screened. etelvina 23:27 Differential diagnosis: cardiac arrhythmia, generalized weakness, idiopathic dizziness, etelvina near-syncope. Data reviewed: vital signs, nurses notes, lab test result(s), EKG, radiologic studies, CT scan, plain films. Data interpreted: nuclear monitoring technician: rate is 78 beats/min, rhythm is regular, Pulse oximetry: on room air is 97 %. Test interpretation: by ED physician or midlevel provider: ECG, plain radiologic studies. Counseling: I had a detailed discussion with the patient and/or guardian regarding: the historical points, exam findings, and any diagnostic results supporting the discharge/admit diagnosis, lab results, radiology results, the need for outpatient follow up, for definitive care, a family practitioner, a psychiatrist. 08/11 22: Order name: Basic Metabolic Panel [facility] 08/11 23:01 Order name: CBC with Diff [facility] 08/11 23: Order name: LFT's [facility] 08/11 22: Order name: Magnesium [facility] 08/11 22: Order name: NT PRO-BNP [facility] 08/11 22:01 Order name: PT-INR [facility] 08/11 22: Order name: Troponin (emerg Dept Use Only) [facility] 08/11 23:49 Order name: CBC with Automated Diff; Complete Time: 00:07 EDMS 08/11 23:51 Order name: Protime (+INR); Complete Time: 00:07 EDNC 08/12 00:11 Order name: Basic Metabolic Panel; Complete Time: 00:15 EDNC 08/12 00:11 Order name: Liver (Hepatic) Function; Complete Time: 00:15 EDNC 08/12 00:11 Order name: Troponin (Emerg Dept Use Only); Complete Time: 00:15 EDNC 08/12 00:11 Order name: NT PRO-BNP; Complete Time: 00:15 EDNC 08/12 00:11 Order name: Magnesium; Complete Time: 00:15 [facility] 08/11 23:01 Order name: XRAY Chest (1 view) [facility] 08/11 23:01 Order name: EKG; Complete Time: 23:02 [facility] 08/11 23:01 Order name: Cardiac monitoring; Complete Time: 23:37 [facility] 08/11 23:01 Order name: EKG - Nurse/Tech; Complete Time: 23:37 [facility] 08/11 23:01 Order name: IV Saline Lock; Complete Time: 23:37 [facility] 08/11 23:01 Order name: CT Head Brain wo Cont [facility] 08/12 00:25 Order name: AMMONIA [facility] 08/12 00:25 Order name: Tylenol Level [facility] 08/12 00:26 Order name: Lipase [facility] 08/12 01:00 Order name: Ammonia; Complete Time: 01:06 [facility] 08/12 01:03 Order name: Acetaminophen Level; Complete Time: 01:06 [facility] 08/12 01:03 Order name: Lipase; Complete Time: 01:06 [facility] 08/11 23:01 Order name: Labs collected and sent; Complete Time: 23:37 [facility] 08/11 23:01 Order name: O2 Per Protocol; Complete Time: 23:37 [facility] 08/11 23:01 Order name: O2 Sat Monitoring; Complete Time: 23:37 [facility] EC:48 Rate is 66 beats/min. Rhythm is regular. QRS [place] is Normal. AR interval is normal. QRS etelvina interval is normal. QT interval is normal. No Q waves. T waves are Normal. No ST changes noted. Clinical impression: NSR w/ Non-specific ST/T Changes and No evidence of ischemia. Interpreted by me. Reviewed by me. Administered Medications: 23:20 CANCELLED (MED UNAVAILABLE): Cymbalta 60 mg PO once bp 23:37 Drug: NS 0.9% 500 ml Route: IV; Rate: bolus; Site: right forearm; mg2 08/12 00:50 Follow up: Response: No adverse reaction; IV Status: Completed infusion; IV Intake: rr5 500ml 08/11 23:37 Drug: Zofran (Ondansetron) 4 mg Route: IVP; Site: right forearm; mg2 08/12 00:40 Follow up: Response: No adverse reaction rr5 08/11 23:44 Drug: Ativan 1 mg Route: IVP; Site: right forearm; mg2 08/12 01:16 Follow up: Response: No adverse reaction rr5 Disposition: 08/12/20 01:08 Discharged to Home. Impression: Dizziness and giddiness, Nausea, Underdosing of selective serotonin reuptake inhibitors, Essential (primary) hypertension, Alcohol abuse. - Condition is Stable. - Discharge Instructions: Dizziness, Nausea and Vomiting, Adult, Nausea, Adult, Alcohol Abuse and Nutrition, Alcoholic Liver Disease, [id number], Dizziness, [id number], Alcoholic Liver Disease. - Prescriptions for Zofran 4 mg Oral Tablet - take 1 tablet by ORAL route every 12 hours As needed; 14 tablet. Cymbalta 20 mg Oral Capsule, Delayed Release(E.C.) - take 1 capsule by ORAL route every 12 hours; 30 capsule. - Medication Reconciliation Form, Thank You Letter, Antibiotic Education, Prescription Opioid Use form. - Follow up: Private Physician; When: 2 - 3 days; Reason: Recheck today's complaints, Continuance of care, Re-evaluation by your physician. Follow up: Ajith Womack; When: 5 - 6 days; Reason: Recheck today's complaints, Continuance of care, Re-evaluation by your physician. Follow up: Qiana Marley; When: 2 - 3 days; Reason: Recheck today's complaints, Re-evaluation by your physician. - Problem is new. - Symptoms have improved. Signatures: Dispatcher [employer] EDMS Adalid Capone MD MD cha Gardose, Michele RN RN mg2 Mo Son RN RN rr5 Lito Islas RN RN ll1 Bradford Escobar RN bp Corrections: (The following items were deleted from the chart) 08/11 23:20 23:02 Cymbalta 60 mg PO once ordered. etelvina bp 08/12 01:16 01:08 08/12/2020 01:08 Discharged to Home. Impression: Dizziness and giddiness; Nausea; rr5 Underdosing of selective serotonin reuptake inhibitors; Essential (primary) hypertension; Alcohol abuse. Condition is Stable. Discharge Instructions: Dizziness, Nausea and Vomiting, Adult, Nausea, Adult, Dizziness, [id number], Alcohol Abuse and Nutrition, Alcoholic Liver Disease, [id number], Alcoholic Liver Disease. Prescriptions for Zofran 4 mg Oral Tablet - take 1 tablet by ORAL route every 12 hours As needed; 14 tablet, Cymbalta 20 mg Oral Capsule, Delayed Release(E.C.) - take 1 capsule by ORAL route every 12 hours; 30 capsule. and Forms are Medication Reconciliation Form, Thank You Letter, Antibiotic Education, Prescription Opioid Use. Follow up: Private Physician; When: 2 - 3 days; Reason: Recheck today's complaints, Continuance of care, Re-evaluation by your physician. Follow up: Ajith Womack; When: 5 - 6 days; Reason: Recheck today's complaints, Continuance of care, Re-evaluation by your physician. Follow up: Qiana Marley; When: 2 - 3 days; Reason: Recheck today's complaints, Re-evaluation by your physician. Problem is new. Symptoms have improved. etelvina
[2020-08-12 01:26] VITALS: TEMP 97.1
[2020-08-12 01:27] VITALS: BP 133/95; O2SAT 98
--- NOTE | 2020-08-12 08:45 | RAD REPORT ---
EXAM DESCRIPTION: RAD - Chest Single View - 08/11/2020 11:56 pm CLINICAL HISTORY: COUGH Chest pain. COMPARISON: Chest Single View dated 07/17/2020; CHEST PA AND LAT 2 VIEW dated 01/15/2013 FINDINGS: Portable technique limits examination quality. Mildly prominent interstitial lung markings suggesting bronchitis or viral pneumonitis. The heart is normal in size. No displaced fractures.
--- NOTE | 2020-08-12 12:39 | RAD REPORT ---
EXAM DESCRIPTION: Head Brain Wo Cont CLINICAL HISTORY: 39 years Male DIZZINESS COMPARISON: MRI head contrast dated 02/11/2019 Technique: Contiguous axial images of the brain were obtained without the administration of intrave nous contrast.This exam was performed according to our departmental dose-optimization program which i ncludes use of Automated Exposure Control, adjustment of the mA and/or kV according to patient size a nd/or use of iterative reconstruction technique. DLP: 886 mGy*cm FINDINGS: Brain: Unchanged rounded hyperdensity in the inferior right frontal lobe measuring approxi mately 7 mm, most compatible with previously described carcinoma. No acute intracranial hemorrhage. N o extra-axial collection. No mass effect or herniation. Ventricles: Within normal limits in size. Globes and orbits: No acute abnormality. Bones: No acute osseous finding Paranasal sinuses: Paranasal sinuses are clear. Mastoid air cells: Well pneumatized. Soft tissues: Within normal limits IMPRESSION: No acute intracranial abnormality. 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 Electronically signed by: Brayan Curiel DO 08/12/2020 12:36 AM [employer] Due to temporary technical issues with the PACS/Fluency reporting system, reports are being signed by the in house radiologist without review as a courtesy to ensure prompt reporting. The interpreting r adiologist is fully responsible for the content of the report.
== END 2020-08-12 01:16 | disposition home or self-care (01) ==
LOC: ER 20:31
DX: R11.0 Nausea (principal); T50.996A Underdosing of other drugs, medicaments and biological substances, initial encounter; F10.10 Alcohol abuse, uncomplicated; I10 Essential (primary) hypertension; Z91.138 Patient's unintentional underdosing of medication regimen for other reason; Z98.84 Bariatric surgery status
CPT/HCPCS: 36415; 70450; 71045; 80048; 80076; 80329; 82140; 83690; 83735; 83880; 84484; 85025; 85610; 93005; 96361; 96374; 96375; 99284; J2405; J7040

== ENCOUNTER 2020-08-13 19:44 | Emergency (ER) | payer SELFPAY ==
--- OUTSIDE RECORDS SUMMARY | 2020-08-13 19:47 | XMS REPORT | Continuity of Care Document ---
:1980 Author Organization [facility] Information [place] Care Team Providers Name Role Phone [facility] Information Exchange Unavailable Un available Problems Problem Status Onset Classification Date Comments Sourc e Date Reported 19810, MORBID Active 01/06/20 OBESITY 16 [facility] 14034, REFLUX Active 11/30/[address] Acid reflux Resolved Problem 02/05/2016 (finding) [facility] Hypertensive Active Problem 02/05/2016 disorder, [facility] systemic arterial Ci ty (disorder) C/O - low back Active Problem 02/05/2016 pain [facility] (context-dependen Ci ty t category) 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) [facility] Morbid obesity Active Problem 02/05/2016 MH (disorder) [facility] ILLNESS, Active MH UNSPECIFIED [facility] Medications Medication Details Route Status Patient Ordering Order Source Instructions Provider Date Lactated Ringers 1,000 mL, Inactive 1,000 mL Rate: 80 2015 [facility] ml/hr, Infuse [facility] over: 12.5 hr, Route: IV, Dosing Weight 148.182 kg, Total Volume: 1,000, Start date: 02/02/16 9:00:00 CDT, Duration: 30 day, Stop date: 03/03/16 8:59:00 CDT Enoxaparin Notes: (Same No Longer as: Lovenox) Active 2015 [facility] Ketorolac 4 days No Longer MEDICATION Active 2015 [facility] WASTE [facility] Product Size: 30 mg Product Wasted: ___ mg Sodium Chloride 25 mL, Route: No Longer 0.9% IV IV, Start Active 2015 [facility] date: 02/01/16 [facility] 14:05:00 CDT, Duration: 30 day, Stop date: 03/02/16 14:04:00 CDT, PRN Line Flush BD Normal Saline Notes: (Same No Longer Flush as: BD Active 2015 [facility] Posiflush) [facility] BD Normal Saline Notes: (Same No Longer Flush as: BD Active 2015 [facility] Posiflush) [facility] Dilaudid Notes: (Same No Longer as: Dilaudid) Active 2015 [facility] Lactated Ringers 1,000 mL, Inactive Injection IV 1000 Rate: 80 2016 Memor ial mL ml/hr, Infuse City over: 12.5 hr, Route: IV, Dosing Weight 148.182 kg, Total Volume: 1,000, Priority: STAT, Start date: 02/01/16 11:34:00 CDT, Duration: 30 day, Stop date: 03/02/16 11:33:00 CDT Calcium Chloride 1,000 mL, No Longer 0.0014 MEQ/ML / Rate: 125 Active 2015 Memori al Potassium ml/hr, Infuse [facility] Chloride 0.004 over: 8 hr, MEQ/ML / Sodium Route: IV, Chloride 0.103 Dosing Weight MEQ/ML / Sodium 148.182 kg, Lactate 0.028 Total Volume: MEQ/ML Injectable 1,000, Start Solution date: 02/01/16 11:34:00 CDT, Stop date: 02/02/16 9:00:00 CDT Promethazine 12.5 mg, 50 No Longer mL, Route: Active 2015 [facility] IVPB, Drug City form: SOLN, Q4H, Dosing Weight 148.182, kg, PRN Nausea & Vomiting, Start date: 02/01/16 11:34:00 CDT, Duration: 30 day, Stop date: 03/02/16 11:33:00 CDT Ondansetron Notes: (Same No Longer as: Zofran) Active 2015 [facility] MEDICATION City WASTE Product Size: 4 mg Product Wasted: ___ mg Hydromorphone Notes: (Same Inactive as: Dilaudid) 2015 [facility] Naloxone Notes: Same as Inactive Narcan 2015 [facility] Meperidine Notes: (Same Inactive As: Demerol) 2015 [facility] Flumazenil Notes: (Same Inactive as: Romazicon) 2015 [facility] Diphenhydramine Notes: (Same Inactive as: Benadryl) 2015 [facility] Ondansetron Notes: (Same Inactive as: Zofran) 2016 [facility] MEDICATION City WASTE Product Size: 4 mg Product Wasted: ___ mg Labetalol Notes: (Same Inactive as: Normodyne, 2016 [facility] Trandate) Push City over 2 minutes Give bolus over 2-3 minutes. Ketorolac 4 days Inactive MEDICATION 2015 [facility] WASTE City Product Size: 30 mg Product Wasted: ___ mg Morphine Notes: (Same Inactive as:MORPhine 2015 [facility] Sulfate) [facility] Fentanyl Notes: (Same Inactive as: Sublimaze) 2015 [facility] Preservative [facility] free. Naloxone Notes: Same as Inactive Narcan 2015 [facility] Flumazenil Notes: (Same Inactive as: Romazicon) 2015 [facility] Ondansetron Notes: (Same Inactive as: Zofran) 2015 [facility] MEDICATION City WASTE Product Size: 4 mg Product Wasted: ___ mg Ancef Notes: Same Inactive as: Ancef 2015 [facility] Ondansetron Notes: (Same No Longer as: Zofran) Active 2015 [facility] MEDICATION City WASTE Product Size: 4 mg Product Wasted: ___ mg Promethazine Notes: Do not No Longer give IV push. Active 2015 [facility] (Same as: [facility] Phenergan) Naloxone Notes: Same as No Longer Narcan Active 2015 [facility] Ephedrine Notes: (Same No Longer as: ePHEDrine Active 2015 [facility] Sulfate) [facility] Diphenhydramine Notes: (Same No Longer H as: Benadryl) Active 2015 [facility] Flumazenil Notes: (Same No Longer as: Romazicon) Active 2015 [facility] Sodium Chloride 500 mL, Rate: No Longer 0.154 MEQ/ML 125 ml/hr, Active 2015 [facility] Injectable Infuse over: 4 City Solution hr, Route: IV, Dosing Weight 148.182 kg, Total Volume: 500, Start date: 12/02/15 8:11:00 CDT, Duration: 30 day, Stop date: 01/01/16 8:10:00 CDT Labetalol Notes: (Same No Longer as: Normodyne, Active 2015 [facility] Trandate) Push City over 2 minutes Give bolus over 2-3 minutes. Hydralazine Notes: (Same No Longer as: Active 2015 [facility] Apresoline) City Push over 5 minutes esmolol Notes: (Same No Longer as: Brevibloc) Active 2015 [facility] Metoprolol Notes: (Same No Longer as: Lopressor) Active 2015 [facility] Push over 2 City minutes carisoprodol 350 350 mg = 1 Active mg oral tablet tab, PO, BID, 2015 Mem orial 0 Refill(s) [facility] lisinopril 20 mg 20 mg = 1 tab, Active oral tablet PO, Daily, # 2015 Memoria l 30 tab, 0 City Refill(s) HYDROcodone 10 mg 10 mg = 1 cap, Active oral capsule, PO, Q12H, 0 2015 Memori al extended release Refill(s) [facility] Allergies, Adverse Reactions, Alerts No Known Medication Allergies Immunizations No Data Provided for This Section Results Order Name Results Value Reference Date Interpretation Comments Lilo rce Range CHEM PANEL eGFR 118 02/01 Result Comment: The [facility] eGFR is City calculated using the CKD-EPI [...] 0.50 - 02/01 MH Lvl 1.40 /2015 [facility] CHEM PANEL Glucose Lvl 105 70 - 99 02/01 [facility] CHEM PANEL Calcium Lvl 8.7 8.5 - 10.5 02/01 /2015 [facility] CHEM PANEL CO2 23 24 - 32 02/01 /2015 [facility] CHEM PANEL Chloride Lvl 108 95 - 109 02/01 [facility] CHEM PANEL Potassium 4.0 3.5 - 5.1 / MH Lvl /2015 [facility] CHEM PANEL Sodium Lvl 142 135 - 145 02/01 [facility] CHEM PANEL BUN 12 7 - 22 02/01 [facility] CHEM PANEL AGAP 15.0 10.0 - 02/01 20.0 [facility] HEMATOLOGY MCH 27.2 27.0 - 02/01 MH 31.0 [facility] HEMATOLOGY MCHC 33.0 32.0 - 02/01 MH 36.0 [facility] HEMATOLOGY RDW 12.9 11.5 - 02/01 MH 14.5 [facility] HEMATOLOGY Hgb 13.4 14.0 - 02/01 MH 18.0 [facility] HEMATOLOGY Hct 40.7 42.0 - 02/01 MH 54.0 [facility] HEMATOLOGY MCV 82.6 80.0 - 02/01 MH 94.0 [facility] HEMATOLOGY Platelet 250 133 - 450 02/01 [facility] HEMATOLOGY MPV 7.8 7.4 - 10.4 02/01 [facility] HEMATOLOGY WBC 12.3 3.7 - 10.4 02/01 [facility] HEMATOLOGY RBC 4.93 4.70 - 02/01 MH 6.10 [facility] HEMATOLOGY Segs-Bands # 9.6 1.5 - 8.1 02/01 [facility] HEMATOLOGY Lymphocytes 1.9 1.0 - 5.5 02/01 MH # /2015 [facility] HEMATOLOGY Monocytes # 0.5 0.0 - 0.8 02/01 [facility] HEMATOLOGY Eosinophils 0.0 0.0 - 0.5 02/01 MH # /2015 [facility] HEMATOLOGY Basophils # 0.2 0.0 - 0.2 02/01 [facility] HEMATOLOGY Monocytes 4.3 2.0 - 12.0 02/01 [facility] HEMATOLOGY Eosinophils 0.0 0.0 - 4.0 02/01 MH /2015 [facility] HEMATOLOGY Basophils 1.8 0.0 - 1.0 02/01 [facility] HEMATOLOGY Segs 78.6 45.0 - 02/01 MH 75.0 [facility] HEMATOLOGY Lymphocytes 15.3 20.0 - 02/01 MH 40.0 /2015 [facility] HEMATOLOGY PTT 36.0 22.9 - 02/01 MH 35.8 /2015 [facility] HEMATOLOGY PT 15.5 12.0 - 02/01 MH 14.7 [facility] HEMATOLOGY INR 1.20 0.85 - 02/01 MH 1.17 /2015 [facility] BLOOD BANK ABO/Rh A POS 01/31 RESULTS /2015 [facility] BLOOD BANK Antibody Negative 01/31 RESULTS Scrn (02/01/16 8:22 AM) [facility] CHEM PANEL Vitamin D, 24 30 - 100 01/18 25-OH, Total [facility] CHEM PANEL ALT 35 0 - 65 01/18 [facility] CHEM PANEL CO2 30 24 - 32 01/18 [facility] CHEM PANEL Albumin Lvl 3.9 3.5 - 5.0 01/18 [facility] CHEM PANEL AST 23 0 - 37 01/18 [facility] CHEM PANEL eGFR 104 01/18 Result Comment: The [facility] eGFR is City calculated using the CKD-EPI [...] Creatinine 0.96 0.50 - 01/18 Lvl 1.40 [facility] CHEM PANEL BUN 16 7 - 22 01/18 MH /2015 [facility] CHEM PANEL Glucose Lvl 103 70 - 99 01/18 [facility] CHEM PANEL Sodium Lvl 140 135 - 145 01/18 [facility] CHEM PANEL Potassium 4.2 3.5 - 5.1 01/18 MH Lvl /2015 [facility] CHEM PANEL Chloride Lvl 102 95 - 109 01/18 [facility] CHEM PANEL Calcium Lvl 9.4 8.5 - 10.5 01/18 [facility] CHEM PANEL Bili Total 0.8 0.2 - 1.3 01/18 [facility] CHEM PANEL Alk Phos 137 39 - 136 01/18 MH [facility] CHEM PANEL Total 8.0 6.4 - 8.4 01/18 MH [facility] CHEM PANEL B/C Ratio 17 6 - 25 01/18 [facility] CHEM PANEL AGAP 12.2 10.0 - 01/18 MH 20.0 [facility] CHEM PANEL A/G Ratio 1.0 0.7 - 1.6 01/18 [facility] CHEM PANEL Globulin 4.1 2.0 - 4.0 01/18 [facility] HEMATOLOGY PTT 38.8 22.9 - 01/18 MH 35.8 /2015 [facility] HEMATOLOGY PT 14.1 12.0 - 01/18 MH 14.7 [facility] HEMATOLOGY INR 1.06 0.85 - 01/18 MH 1.17 /2015 [facility] HEMATOLOGY RDW 12.9 11.5 - 01/18 MH 14.5 [facility] HEMATOLOGY Platelet 277 133 - 450 01/18 [facility] HEMATOLOGY MCHC 33.0 32.0 - 01/18 MH 36.0 [facility] HEMATOLOGY MPV 7.1 7.4 - 10.4 01/18 MH [facility] HEMATOLOGY MCV 83.0 80.0 - 01/18 MH 94.0 [facility] HEMATOLOGY MCH 27.4 27.0 - 01/18 MH 31.0 [facility] HEMATOLOGY Hct 44.5 42.0 - 01/18 MH 54.0 /2015 [facility] HEMATOLOGY Hgb 14.7 14.0 - 01/18 MH 18.0 /2015 [facility] HEMATOLOGY RBC 5.36 4.70 - 01/18 MH 6.10 /2015 [facility] HEMATOLOGY WBC 8.3 3.7 - 10.4 01/18 MH /2015 [facility] HEMATOLOGY Monocytes # 0.4 0.0 - 0.8 01/18 [facility] HEMATOLOGY Basophils # 0.0 0.0 - 0.2 01/18 MH [facility] HEMATOLOGY Eosinophils 0.7 0.0 - 4.0 01/18 MH [facility] HEMATOLOGY Basophils 0.5 0.0 - 1.0 01/18 [facility] HEMATOLOGY Eosinophils 0.1 0.0 - 0.5 01/18 MH # /2016 [facility] HEMATOLOGY Lymphocytes 2.4 1.0 - 5.5 01/18 MH # /2016 [facility] HEMATOLOGY Segs-Bands # 5.3 1.5 - 8.1 01/18 [facility] HEMATOLOGY Monocytes 4.8 2.0 - 12.0 01/18 [facility] HEMATOLOGY Lymphocytes 29.4 20.0 - 01/18 MH 40.0 /2015 [facility] HEMATOLOGY Segs 64.6 45.0 - 01/18 MH 75.0 [facility] PARATHYROID PTH Intact 59.5 11.1 - 01/18 MH PROFILE 79.5 /2015 [facility] SPECIAL Hgb A1C 5.5 <=5.6 % 01/18 CHEMISTRY /2015 [facility] URINE AND UA <=1.0 0.1 - 1.0 01/18 STOOL Urobilinogen mg/dL [facility] URINE AND UA Ketones Negative 01/18 STOOL /2015 [facility] URINE AND Micro? Performed 01/18 STOOL *NA* /2015 [facility] (01/19/16 11:15 AM) [facility] URINE AND UA Color Light Yellow Yellow 01/18 STOOL *NA* /2015 [facility] (01/19/16 11:15 AM) [facility] URINE AND UA Turbidity Clear Clear 01/18 STOOL (01/19/16 11:15 AM) /2015 [facility] URINE AND UA Spec Grav 1.017 <=1.030 01/18 STOOL [facility] URINE AND UA Protein Negative Negative 01/18 STOOL mg/dL mg/dL [facility] URINE AND UA Leuk Est Negative Negative 01/18 STOOL (01/19/16 11:15 AM) [facility] URINE AND UA Bili Negative Negative 01/18 STOOL *NA* /2015 [facility] Glucose Negative Negative 01/18 STOOL mg/dL mg/dL /2015 [facility] URINE AND UA pH 5.0 5.0 - 8.0 01/18 STOOL /2015 [facility] URINE AND UA RBC <1 0 - 2 01/18 STOOL /2015 [facility] URINE AND UA Mucus Few /LPF None Seen 01/18 STOOL /LPF /2015 [facility] URINE AND UA Blood Small Negative 01/18 STOOL *ABN* /2015 [facility] (01/19/16 11:15 AM) [facility] URINE AND UA Nitrite Negative Negative 01/18 [facility] (01/19/16 11:15 AM) [facility] Pathology Reports No Data Provided for This Section Diagnostic Reports Report Value Date Source Chest 2 views DX EXAM: PA AND LATERAL CHEST X RAY 01/19/2016 [facility] DATE:- 01/19/2016 10:42 AM CDT . CLINICAL [...] Comments Source Systolic (mm Hg) 157 02/03/2016 [facility] Diastolic (mm Hg) 89 02/03/2016 [facility] Heart Rate 56 02/03/2016 [facility] Temperature Oral (F) 98 F 02/03/2016 [facility] Respitory Rate 20 02/03/2016 [facility] ity Temperature Oral (F) 98.1 F 02/02/2016 [facility] Respitory Rate 18 02/02/2016 [facility] ity Systolic (mm Hg) 136 02/02/2016 [facility] Diastolic (mm Hg) 82 02/02/2016 [facility] Heart Rate 53 02/02/2016 [facility] Systolic (mm Hg) 136 02/02/2016 [facility] Diastolic (mm Hg) 75 02/02/2016 [facility] Heart Rate 79 02/02/2016 [facility] Whitney y Respitory Rate 17 02/02/2016 [facility] Graeme skinner Temperature Oral (F) 98.2 F 02/02/2016 [facility] Height 180.34 cm 01/19/2016 [facility] Weight 148.182 01/19/2016 [facility] y BMI Calculated 45.56 01/19/2016 [facility] Graeme ity Weight 148.182 12/02/2015 [facility] Height 182.88 cm 12/02/2015 [facility] y BMI Calculated 44.31 12/02/2015 [facility] Graeme itmichael Encounters Location Location Encounter Encounter Reason Attending ADM DC Stat us Source Details Type Number For Provider Date Date Visit [facility] Bedded [id number] [facility] 12/01 12/01 [facility] [id number] [facility] 01/31 02[facility] Procedures Procedure Code Date Perfomer Comments Source Epidural steroid [id number] [facility] ia injection [facility] Incision and [id number] [facility] drainage of [facility] abscess of villa Assessment and Plan Assessment and Plan Date Source Extracted from:Title: Clinical Document 02/03/2016 [facility] Author: Vincent Patel MD Date: 02/02/16 Progress Note - Daily [facility] Completed: Jan, 13:05 by Vincent Patel MD RM: 531 - [id number], DEMETRIA PAREKH ART URO 35y (: 1980) M Attending: Vincent Patel MD Service: General Surgery Service Reason for Admission: 12134, MORBID OBESITY Working DRG: None Documented Code [...] Tot 322 600 -278 01/31 24hr Tot [id number] Medications (10) Active Scheduled Meds (2): 02/01/16 enoxaparin 30 mg SUB-Q [id number] 02/01/16 ketOROLAC 30 mg IVP Q6H Unscheduled Meds: None PRN Meds (6): 02/01/16 Sodium Chloride 0.9% IV 25 mL IV PRN 02/01/16 hydromorphone (Dilaudid) 0.5 mg IV Q3H 02/01/16 ondansetron 4 mg IVP Q12H 02/01/16 promethazine 12.5 mg IVPB Q4H 300 ml/hr 02/01/16 sodium chloride (BD Normal Saline Flush) 5 mL IV WA N 07/13/16 sodium chloride (BD Normal Saline [...] History Date Source Social History TypeResponse 01/19/2016 [facility] Alcohol Current, Type Beer, Liquor. Frequency: 3-5 [...]
--- OUTSIDE RECORDS SUMMARY | 2020-08-13 19:48 | XMS REPORT | Continuity of Care Document ---
:1980 Author Organization [facility] t Address [address] [place] [address] Care Team Providers Name Role Phone Srini CHAMBERLAIN, K.H. Attending Clinician Good Patel Attending Clinician Good Patel Admitting Clinician Problems Condition Condition Condition Status Onset Resolution Last Treating Co mments Source Name Details Category Date Date Treatment Clinician Date 74440, Diagnosis Active 2016-02-07 Mem oria MORBID 6-17 21:59:00 l OBESITY [id number], 00:00: [place] MORBID 00 OBESITY Active 01/06/2016 [facility] [place] 51985, Diagnosis Active 2015-12-05 Mem oria REFLUX 5-11 11:03:00 l [id number], 00:00: [place] REFLUX 00 Active 11/30/2015 [facility] Acid Problem Resolve 2016-02-05 Kwadwo jase reflux d 00:26:43 l (finding) Acid [place] reflux (finding) Resolved Problem 02/05/2016 [facility] Hypertensi Problem Active 2016-02-05 M emoria ve 00:26:43 l disorder, [place] systemic Hypertensi arterial ve (disorder) disorder, systemic arterial (disorder) Active Problem 02/05/2016 [facility] C/O - low Problem Active 2016-02-05 Me moria back pain 00:26:43 l (context-d C/O - Emily nn ependent low back category) pain (context-d ependent category) Active Problem 02/05/2016 [facility] Degenerati Problem Active 2016-02-05 M emoria on of 00:26:43 l interverte Andrae n bral disc Degenerati (disorder) on of interverte bral disc (disorder) Active Problem 02/05/2016 [facility] Morbid Problem Active 2016-02-05 Memor ia obesity 00:26:43 l (disorder) Morbid Herm johnny obesity (disorder) Active Problem 02/05/2016 [facility] ILLNESS, Diagnosis Active 2016-02-07 M emoria UNSPECIFIE 21:59:00 l D ILLNESS, Andrae n UNSPECIFIE D Active [facility] Allergies, Adverse Reactions, Alerts This patient has no known allergies or adverse reactions. Social History Social Habit Start Date Stop Date Quantity Comments Source Social History 2016-01-19 2016-01-19 [facility] ermann 16:22:14 16:22:14 Medications Ordered Filled Start [...] ia 7-13 (Same as: l 16:33: Romazicon) [place] 00 Diphenhydra No Notes: Kwadwo jase mine [...] days Memor ia 7-13 l 16:33: MEDICATION [place] 00 WASTE Product Size: 30 mg Product Wasted: ___ mg Morphine No Notes: Memoria 7-13 (Same l 16:33: as:MORPhin [place] 00 e Sulfate) Fentanyl No Notes: Memoria 7-13 (Same as: l 16:33: Sublimaze) [place] 00 Preservat kallie free. Naloxone No Notes: Memoria 7-13 Same as l 12:44: Narcan [place] 00 Flumazenil No Notes: Memor ia 7-13 (Same as: l 12:44: Romazicon) [place] 00 Ondansetron No Notes: Kwadwo jaes 7-13 (Same as: l 12:44: Zofran) [place] 00 MEDICATION WASTE Product Size: 4 mg Product Wasted: ___ mg Ancef No Notes: Memoria 7-13 Same as: l 05:00: Ancef [place] 00 Ondansetron No Notes: Kwadwo jase 5-13 (Same as: l 13:11: Zofran) [place] 00 MEDICATION WASTE Product Size: 4 mg Product Wasted: ___ mg Promethazin No Notes: Do M emoria e 5-13 not give l 13:11: IV push. [place] 00 (Same as: Phenergan) Naloxone No Notes: [...] tab, PO, l tablet 12:48: Daily, # [place] 00 30 tab, 0 Refill(s) HYDROcodone Yes [...] Oral (F) 2016-02-03 01:00:00 98 F [facility] [place] Respitory Rate 2016-02-03 01:00:00 Memori al [place] Temperature Oral (F) 2016-02-02 20:58:00 98.1 F [facility] [place] Respitory Rate 2016-02-02 20:58:00 Memori al [place] Systolic (mm Hg) 2016-02-02 20:58:00 Kwadwo rial [place] Diastolic (mm Hg) 2016-02-02 20:58:00 Mem orial [place] Heart Rate 2016-02-02 20:58:00 [facility] [place] Systolic (mm Hg) 2016-02-02 17:07:00 Kwadwo rial [place] Diastolic (mm Hg) 2016-02-02 17:07:00 Mem orial [place] Heart Rate 2016-02-02 17:07:00 [facility] [place] Respitory Rate 2016-02-02 17:07:00 Memori al [place] Temperature Oral (F) 2016-02-02 17:07:00 98.2 F [facility] [place] Height 2016-01-19 15:41:00 180.34 cm [facility] [place] Weight 2016-01-19 15:41:00 [facility] [place] BMI Calculated 2016-01-19 15:41:00 Memori al [place] Weight 2015-12-02 12:45:00 [facility] [place] Height 2015-12-02 12:45:00 182.88 cm [facility] [place] BMI Calculated 2015-12-02 12:45:00 Memori al [place] Procedures Procedure Date / Time Performed Performing Clinician [facility] e Epidural steroid [facility] [place] n injection Incision and drainage of Memoria l [place] abscess of villa Encounters Start End Encounter Admission Attending Care Care Encounter Source Date/Time Date/Time Type Type Clinicians Facility Department ID 2020-04-14 2020-04-14 [facility] [id number] 00:00:00 00:00:00 Royal Lopez [id number] [place] [id number] [facility]al 059 Deangelo 2016-02-01 2016-02-02 Outpatient Primomo, [facility] [id number] 11:34:00 21:41:00 Vincent Funk 2015-12-02 2015-12-02 Outpatient Primomo, [facility] [id number] 07:06:00 09:05:00 Vincent Cathy Funk Results Test [...] code = MCH) 27.2 pg 27.0-31.0 [facility] NppylrfHMJXSNVOPL8258-42-50 10:38:0033.0[facility]ann[facility]OLOGY 2016-02-02 10:38:0012.9[facility] IxhyqbqUUTQXXRJIY2228-35-59 10:38:0013.4[facility] MasceynKWWCGHLIXP4348-07-96 10:38:0040.7[facility] PmjxtvrUNRCVPRWZY6267-48-96 10:38:0082.6[facility] ZtrklczHMUPZPARJB1387-26-86 10:38:30688Gvyhuabg [place] SHFZGGRUCS3447-11-46 10:38:007.8[facility] KbsyuktDVFUQGOTNT1521-72-02 10:38:00 12.3[facility] LwklwkdJCURKPEXII2238-20-59 10:38:004.93[facility]annHEMATOLOGY 2016-02-02 10:38:009.6[facility] IqexkuzRMXBBFGLIG7438-28-32 10:38:001.9[facility] SyzxkbdHTWSEYUBQJ5385-50-90 10:38:000.5[facility] LpuhkkzHWWWNXSRWK3134-35-06 10:38:000.0[facility] UdyljjeNVJGYWTPLU3637-54-94 10:38:000.2[facility] [place] THOXJTIFSG1563-21-70 10:38:004.3[facility] UaswewaALGPETBZKR9162-01-87 10:38:000.0 [facility] DizxfqyXHWBOZRMOS4267-54-17 10:38:001.8[facility]annHEMATOLOGY 2016-02-02 10:38:0078.6[facility] JfzmungQVDEABEISC3659-83-46 10:38:0015.3[facility] HvepgnpSVMOPGKUFT0109-23-00 10:38:00 Test Item Value Reference Range Interpretation Comments PTT (test code = PTT) 36.0 s 22.9-35.8 [facility] AihnhytQXPODUIKQD3451-73-29 10:38:00 Test Item Value Reference Range Interpretation Comments PT (test code = PT) 15.5 s 12.0-14.7 [facility] HgqznicMXTWWQIPVX5553-89-11 10:38:001.20[facility] HermannBLOOD BANK MXCXTVO5133-15-79 13:22:00Negative (02/01/16 8:22 AM)[facility] HermannCHEM PANEL 2016-01-19 16:50:0024[facility] HermannCHEM FWIPJ0257-03-05 16:50:0035[facility] HermannCHEM AVYHG0433-20-85 16:50:0030[facility] HermannCHEM OVIWX7729-69-02 16:50:003.9[facility] HermannCHEM GOJKB6165-18-56 16:50:0023[facility] HermannCHEM XMBWB5934-36-47 16:50:49162Davytjhx HermannCHEM YYJGY6093-81-34 16:50:000.96 [facility] HermannCHEM YWSNA6533-20-15 16:50:0016[facility] HermannCHEM PANEL 2016-01-19 16:50:67256Yuvlpuch HermannCHEM XQZVR5402-66-79 16:50:52397Byfkgcxz HermannCHEM RGHYZ9583-92-47 16:50:004.2[facility] HermannCHEM TKFEK6955-36-18 16:50:11865Cspyjpoo HermannCHEM HTVYK2053-56-53 16:50:009.4[facility] HermannCHEM JSYAJ1149-43-20 16:50:000.8[facility] HermannCHEM AJRHH5657-81-42 16:50:13771 [facility] HermannCHEM WUKWW4464-27-13 16:50:008.0[facility] HermannCHEM PANEL 2016-01-19 16:50:0017[facility] HermannCHEM FLOLB2378-12-85 16:50:0012.2[facility] HermannCHEM WKWTZ4222-14-89 16:50:001.0[facility] HermannCHEM JVBNK9166-88-97 16:50:004.1[facility] TxpvjtsNEQEYEPBWE9929-46-60 16:50:00 Test Item Value Reference Range Interpretation Comments PTT (test code = PTT) 38.8 s 22.9-35.8 [facility] WguksnfEJJKOYIWJZ8090-14-67 16:50:00 Test Item Value Reference Range Interpretation Comments PT (test code = PT) 14.1 s 12.0-14.7 [facility] UruzttmBOUQNQKMBC8473-01-44 16:50:001.06[facility] HermannHEMATOLOGY 2016-01-19 16:50:0012.9[facility] HkaxoppZAUEJLUQBR8959-32-35 16:50:18283Ubwnlbxx HwkdcrcRMVHLLMLWL5242-54-17 16:50:0033.0[facility] UfdqukzVOFSDQPYGW5302-20-73 16:50:007.1[facility] HejrbtzCTBOTMKHGD9835-23-47 16:50:0083.0[facility] OXXSMUVAPK3725-04-58 16:50:00 Test Item Value Reference Range Interpretation Comments MCH (test code = MCH) 27.4 pg 27.0-31.0 [facility] SxwpdxvVTJWATCCCD2016-83-69 16:50:0044.5[facility] HermannHEMATOLOGY 2016-01-19 16:50:0014.7[facility] PneliseAXFKWEWDAU0383-28-66 16:50:005.36[facility] PxirgxhFVJMANDOZB8148-56-61 16:50:008.3[facility] HmnpuihIHRTDYYHDY1937-99-05 16:50:000.4[facility] YymmpxwMXWSDJJZHO1415-56-50 16:50:000.0[facility] WXUSYZGTNW1515-75-70 16:50:000.7[facility] FxkiedkDDISDSMRRE7171-28-93 16:50:000.5 [facility] YxlpdefXTFWIVPPPC5901-69-84 16:50:000.1[facility] HermannHEMATOLOGY 2016-01-19 16:50:002.4[facility] PfeuiykBZYFIFODUY6540-46-75 16:50:005.3[facility] AfszspnFHEKMALFUD9578-92-14 16:50:004.8[facility] WtzexkbBGRIIYGMHP8733-23-13 16:50:0029.4[facility] NzvsiddHKCTHPLJIG5817-78-17 16:50:0064.6[facility] PARATHYROID RCTZWEL5319-97-62 16:50:0059.5[facility] HermannSPECIAL CHEMISTRY 2016-01-19 16:50:005.5[facility] HermannURINE AND ZXWSV6568-50-05 16:15:00 Performed *NA*(01/19/16 11:15 AM)[facility] AND QSMQJ4304-57-05 16:15:00Light Yellow *NA*(01/19/16 11:15 AM)[facility] STOOL 2016-01-19 16:15:00Clear (01/19/16 11:15 AM)[facility]ann[facility] AND STOOL 2016-01-19 16:15:001.017[facility]annURINE AND VBBBY3845-80-23 16:15:00 Negative (01/19/16 11:15 AM)[facility]ann[facility] AND VRTFW0527-81-18 16:15:00 Negative *NA*(01/19/16 11:15 AM)[facility] AND JZBUB2889-49-61 16:15:005.0[facility]ann[facility]INE AND HPEZT2652-87-56 16:15:00<1[facility]ann[facility]INE AND SXUJS3460-39-91 16:15:00Small *ABN*(01/19/16 11:15 AM)[facility] HermjohnnyURINE AND WSMDA6161-26-59 16:15:00Negative (01/19/16 11:15 AM)[facility] [place]
[2020-08-13 21:46] LABS: Absolute Lymphocytes (CBC) 2.2 K/uL (0.7-4.9); Basophils % 0.5 % (0-1.3); Hematocrit 41.5 % (39.6-49.0); Lymphocytes % 23.2 % (15.3-44.8); MPV 7.4 fL (7.6-11.3); RBC Red Blood Cell Count 4.42 M/uL (4.33-5.43)
[2020-08-13] MEDS ORDERED: NA CHLORIDE 0.9% 1,000 ML ONE (21:49)
[2020-08-13] MEDS ORDERED: DIPHENHYDRAMINE 50 MG/ML VIAL ONE (21:49)
[2020-08-13] MEDS ORDERED: METOCLOPRAMIDE 10 MG/2mL INJ ONE (21:49)
[2020-08-13 22:04] LABS: Urine Blood TRACE (NEG); Urine Glucose NEGATIVE (NEG); Urine Protein NEGATIVE (NEG); Urine Specific Gravity 1.015 (1.005-1.030); Urine pH 5.5 (5.0-7.0)
[2020-08-13 22:04] LABS: Barbiturates NEGATIVE (NEGATIVE); Benzodiazepines NEGATIVE (NEGATIVE); Cocaine NEGATIVE (NEGATIVE); METHAMPHETAM NEGATIVE (NEGATIVE); Methadone NEGATIVE (NEGATIVE); Opiates POSITIVE (NEGATIVE); Phencyclidine NEGATIVE (NEGATIVE); THC Cannibis NEGATIVE (NEGATIVE)
[2020-08-13 22:11] LABS: ALT/SGPT 185 U/L (12-78); AST/SGOT 155 U/L (15-37); Alkaline Phosphatase 219 U/L (45-117); BUN Blood Urea Nitrogen 11 mg/dL (7-18); Bicarbonate 25 mmol/L (21-32); Bilirubin Direct 0.1 mg/dL (0-0.2); Bilirubin Total 0.4 mg/dL (0.2-1.0); Glucose Level 95 mg/dL (74-106); Magnesium 2.1 mg/dL (1.8-2.4); NT PRO-BNP 9 pg/mL (<125); Phosphorus 3.5 mg/dL (2.5-4.9); Potassium 4.3 mmol/L (3.5-5.1); Sodium Level 136 mmol/L (136-145); Thyroid Stimulating Hormone 0.821 uIU/mL (0.360-3.740); Troponin (Emerg Dept Use Only) < 0.02 ng/mL (0.0-0.045)
[2020-08-13 22:17] LABS: Protime INR 0.97
[2020-08-13] MEDS ORDERED: LORazepam 2 MG/ML VIAL ONE (23:12)
--- NOTE | 2020-08-13 23:51 | ER ---
Nurse's Notes [facility] Name: Marquise Jhaveri Age: 39 yrs Sex: Male : 1980 Arrival Date: 08/13/2020 Time: 19:51 Bed 5 Private MD: Diagnosis: Anxiety disorder, unspecified;Alcohol abuse;Diarrhea, unspecified Presentation: 08/13 20:15 Chief complaint: Patient states: Was here 2 days ago for the same thing. Been having ca1 this dizzy spells. I have been having numbness throughout my whole body. Arms numb, face numb. I feel like I will be having a seizure. 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 Reports headaches, nausea, diarrhea since yesterday. Coronavirus screen: Client denies travel out of the [place] in the last 14 days. diarrhea, headache, nausea, Client presents with at least one sign or symptom that may indicate coronavirus-19. Standard/surgical mask placed on the client. Provider contacted for isolation considerations. Ebola Screen: Patient negative for fever greater than or equal to 101.5 degrees Fahrenheit, and additional compatible Ebola Virus Disease symptoms Patient denies exposure to infectious person. Patient denies travel to an Ebola-affected area in the 21 days before illness onset. No symptoms or risks identified at this time. Initial Sepsis Screen: Does the patient meet any 2 criteria? No. Patient's initial sepsis screen is negative. Does the patient have a suspected source of infection? No. Patient's initial sepsis screen is negative. Risk Assessment: Do you want to hurt yourself or someone else? Patient reports no desire to harm self or others. Onset of symptoms was August 13, 2020. 20:15 Method Of Arrival: Ambulatory ca1 20:15 Acuity: ARNULFO 3 ca1 Historical: - Allergies: 20:23 No Known Allergies; ca1 - Home Meds: 20:23 lisinopril Oral [Active]; Propranolol Oral [Active]; Hydrocodone-Acetaminophen Oral ca1 [Active]; Flexeril Oral [Active]; - PMHx: 20:23 Anxiety; gastric bypass; Hypertension; ca1 - PSHx: 20:23 Disc surgery; ca1 - Immunization history:: Flu vaccine is not up to date. - Social history:: Smoking status: Reported history of juuling and/or vaping. Patient uses alcohol, on a daily basis. Screenin:46 Abuse screen: Denies threats or abuse. Nutritional screening: No deficits noted. ea Tuberculosis screening: No symptoms or risk factors identified. Fall Risk IV access (20 points). Assessment: 21:46 General: Appears uncomfortable, Behavior is calm, cooperative, appropriate for age. ea Pain: Denies pain. Neuro: Level of Consciousness is awake, alert, obeys commands, Oriented to person, place, time, Reports numbness. Cardiovascular: Patient's skin is warm and dry. Respiratory: Airway is patent Respiratory effort is even, unlabored, Respiratory pattern is regular, symmetrical. Derm: Skin is pink, warm \T\ dry. 22:55 Reassessment: Patient and/or family updated on plan of care and expected duration. Pain ea level reassessed. Pt resting with eyes closed, respirations even and unlabored, chest expansions even and symmetrical. 23:54 Reassessment: Patient and/or family updated on plan of care and expected duration. Pain ea level reassessed. Patient is alert, oriented x 3, equal unlabored respirations, skin warm/dry/pink. Discharge instruction given to patient verbalized the understanding of instruction. Pt left ED ambulatory tolerating well. Patient states feeling better. Vital Signs: 20:15 BP 125 / 93; Pulse 90; Resp 16 S; Temp 97.8(TE); Pulse Ox 100% on R/A; Weight 122.47 kg ca1 (R); Height 6 ft. 5 in. (195.58 cm) (R); Pain 3/10; 21:47 BP 120 / 80; Pulse 80; Resp 18; Pulse Ox 100% ; ea 23:57 BP 130 / 86; Pulse 80; Resp 18; Pulse Ox 99% ; ea 20:15 Body Mass Index 32.02 (122.47 kg, 195.58 cm) ca1 ED Course: 19:51 Patient arrived in ED. am2 20:21 Triage completed. ca1 20:23 Arm band placed on right wrist. ca1 20:53 Bala Saini MD is Attending Physician. mh7 20:59 Carol Foote RN is Primary Nurse. ea 21:46 XRAY Chest (1 view) In Process Unspecified. EDMS 21:46 Patient has correct armband on for positive identification. Bed in low position. Call ea light in reach. Side rails up X2. 21:47 Inserted saline lock: 20 gauge in left antecubital area, using aseptic technique. Blood dh4 collected. 22:14 CT Head Brain wo Cont In Process Unspecified. EDMS 23:48 Tasha Maier MD is Referral Physician. [facility] 23:50 IV discontinued, intact, bleeding controlled, No redness/swelling at site. Pressure ea dressing applied. 23:55 No provider procedures requiring assistance completed. ea Administered Medications: 21:40 Drug: Benadryl 50 mg Route: IVP; Site: left antecubital; ea 23:50 Follow up: Response: No adverse reaction ea 21:45 Drug: NS 0.9% 1000 ml Route: IV; Rate: 1000 ml; Site: left antecubital; ea 23:58 Follow up: Response: No adverse reaction; IV Status: Completed infusion ea 21:45 Drug: Reglan 10 mg Route: IVP; Site: left antecubital; ea 23:40 Follow up: Response: No adverse reaction ea 22:57 Drug: Ativan 1 mg Route: IVP; Site: right antecubital; ea 23:30 Follow up: Response: No adverse reaction ea Outcome: 23:49 Discharge ordered by . 7 23:56 Discharged to home ambulatory. ea 23:56 Condition: stable 23:56 Discharge instructions given to patient, Instructed on discharge instructions, follow up and referral plans. Demonstrated understanding of instructions, follow-up care. 23:57 Patient left the ED. ea Signatures: Dispatcher [employer] EDSD Zofia Blank 2 Carol Foote RN RN ea Acob, Cheryl, RN RN ca1 Huhn, Donald 4 Bala Saini MD MD [facility]
--- NOTE | 2020-08-13 23:51 | EDPHYS ---
Physician Documentation [facility] Name: Marquise Jhaveri Age: 39 yrs Sex: Male : 1980 Arrival Date: 08/13/2020 Time: 19:51 Bed 5 Private MD: ED Physician Bala Saini HPI: 08/13 22:24 This 39 yrs old Male presents to ER via Ambulatory with complaints of mh7 Numbness, shaky. 22:24 The patient presents with dizziness, feeling faint. mh7 22:25 Onset: The symptoms/episode began/occurred 2 day(s) ago. Context: occurred at home, mh7 occurred while the patient was standing, just prior to the episode the patient experienced. 22:26 Context: just prior to the episode the patient experienced no apparent symptoms. mh7 Modifying factors: The symptoms are alleviated by nothing, the symptoms are aggravated by standing up, changing position. Associated signs and symptoms: Pertinent positives: headache, nausea, numbness, tingling, diarrhea,feeling shaky, Pertinent negatives: abdominal pain, agitation, ataxia, blurred vision, chest pain, combativeness, confusion, diaphoresis, focal weakness, head injury, palpitations, seizure, shortness of breath, syncope. Severity of symptoms: At their worst the symptoms were moderate 2 day(s) ago, in the emergency department the symptoms have improved moderately. Patient's baseline: Neuro: alert and fully oriented, Motor: no deficits, Ambulation: walks without assistance, Speech: normal. Patient reports drinking alcoholic drinks daily and started vaping 2 weeks ago.. Historical: - Allergies: 20:23 No Known Allergies; ca1 - Home Meds: 20:23 lisinopril Oral [Active]; Propranolol Oral [Active]; Hydrocodone-Acetaminophen Oral ca1 [Active]; Flexeril Oral [Active]; - PMHx: 20:23 Anxiety; gastric bypass; Hypertension; ca1 - PSHx: 20:23 Disc surgery; ca1 - Immunization history:: Flu vaccine is not up to date. - Social history:: Smoking status: Reported history of juuling and/or vaping. Patient uses alcohol, on a daily basis. ROS: 22:26 Constitutional: Negative for fever, chills, and weight loss, Eyes: Negative for injury, mh7 pain, redness, and discharge, ENT: Negative for injury, pain, and discharge, Neck: Negative for injury, pain, and swelling, Cardiovascular: Negative for chest pain, palpitations, and edema, Respiratory: Negative for shortness of breath, cough, wheezing, and pleuritic chest pain, Back: Negative for injury and pain, : Negative for injury, bleeding, discharge, and swelling, MS/Extremity: Negative for injury and deformity, Skin: Negative for injury, rash, and discoloration. 22:26 Allergy/Immunology: Negative for hives, rash, and allergies, Endocrine: Negative for neck swelling, polydipsia, polyuria, polyphagia, and marked weight changes, Hematologic/Lymphatic: Negative for swollen nodes, abnormal bleeding, and unusual bruising. 22:26 Psych: Positive for anxiety, alcohol dependence. Exam: 22:26 Head/Face: Normocephalic, atraumatic. Eyes: Pupils equal round and reactive to light, mh7 extra-ocular motions intact. Lids and lashes normal. Conjunctiva and sclera are non-icteric and not injected. Cornea within normal limits. Periorbital areas with no swelling, redness, or edema. Neck: Trachea midline, no thyromegaly or masses palpated, and no cervical lymphadenopathy. Supple, full range of motion without nuchal rigidity, or vertebral point tenderness. No Meningismus. Chest/axilla: Normal chest wall appearance and motion. Nontender with no deformity. No lesions are appreciated. Cardiovascular: Regular rate and rhythm with a normal S1 and S2. No gallops, murmurs, or rubs. Normal PMI, no JVD. No pulse deficits. Respiratory: Lungs have equal breath sounds bilaterally, clear to auscultation and percussion. No rales, rhonchi or wheezes noted. No increased work of breathing, no retractions or nasal flaring. Abdomen/GI: Soft, non-tender, with normal bowel sounds. No distension or tympany. No guarding or rebound. No evidence of tenderness throughout. Back: No spinal tenderness. No costovertebral tenderness. Full range of motion. Skin: Warm, dry with normal turgor. Normal color with no rashes, no lesions, and no evidence of cellulitis. MS/ Extremity: Pulses equal, no cyanosis. Neurovascular intact. Full, normal range of motion. Neuro: Awake and alert, GCS 15, oriented to person, place, time, and situation. Cranial nerves II-XII grossly intact. Motor strength 5/5 in all extremities. Sensory grossly intact. Cerebellar exam normal. Normal gait. 22:26 Constitutional: The patient appears in no acute distress, alert, awake, anxious. 22:26 Psych: Behavior/mood is cooperative, anxious, Affect is calm, Oriented to person, place, time, Patient has no thoughts/intents to harm self or others. Judgement / Insight is normal. Memory is normal. Delusions/hallucinations are not present. Vital Signs: 20:15 BP 125 / 93; Pulse 90; Resp 16 S; Temp 97.8(TE); Pulse Ox 100% on R/A; Weight 122.47 kg ca1 (R); Height 6 ft. 5 in. (195.58 cm) (R); Pain 3/10; 21:47 BP 120 / 80; Pulse 80; Resp 18; Pulse Ox 100% ; ea 23:57 BP 130 / 86; Pulse 80; Resp 18; Pulse Ox 99% ; ea 20:15 Body Mass Index 32.02 (122.47 kg, 195.58 cm) ca1 MDM: 23:46 Differential diagnosis: cardiac arrhythmia, hyperventilation, hypovolemia, idiopathic mh7 dizziness, near-syncope, Electrolyte abnormality, Paraesthesia, Alcohol abuse, Anxiety. Data reviewed: vital signs, nurses notes, old medical records, lab test result(s), cardiac enzymes, CBC, drug level(s), alcohol, electrolytes, urinalysis, urine drug screen, EKG, radiologic studies, CT scan, plain films. Data interpreted: Pulse oximetry: on room air is 100 %. Interpretation: normal. Counseling: I had a detailed discussion with the patient and/or guardian regarding: the historical points, exam findings, and any diagnostic results supporting the discharge/admit diagnosis, lab results, radiology results, the need for outpatient follow up, to return to the emergency department if symptoms worsen or persist or if there are any questions or concerns that arise at home. Response to treatment: the patient's symptoms have resolved after treatment, the patient's blood pressure is in an acceptable range, mental status has returned to baseline, the patient no longer shows bradycardia, the patient is not short of breath, the patient is not tachycardic, the patient's pain is gone, the patient's temperature has normalized. 23:[address] [facility] 08/13 21:19 Order name: Basic Metabolic Panel [facility] 08/13 21:19 Order name: CBC with Diff [facility] 08/13 21:19 Order name: LFT's [facility] 08/13 21:19 Order name: Magnesium [facility] 08/13 21:19 Order name: NT PRO-BNP [facility] 08/13 21:19 Order name: PT-INR; Complete Time: 23:03 [facility] 08/13 21:19 Order name: Troponin (emerg Dept Use Only); Complete Time: 23:03 [facility] 08/13 21:19 Order name: TSH; Complete Time: 23:03 [facility] 08/13 21:19 Order name: UDS; Complete Time: 23:03 [facility] 08/13 21:19 Order name: ETOH Level; Complete Time: 23:03 [facility] 08/13 21:19 Order name: Phosphorus; Complete Time: 23:03 [facility] 08/13 21:19 Order name: Basic Metabolic Panel; Complete Time: 23:03 [facility] 08/13 21:19 Order name: CBC with Automated Diff; Complete Time: 23:03 [facility] 08/13 21:19 Order name: Liver (Hepatic) Function; Complete Time: 23:03 [facility] 08/13 21:19 Order name: XRAY Chest (1 view) [facility] 08/13 21:19 Order name: EKG; Complete Time: 21:20 [facility] 08/13 21:19 Order name: Cardiac monitoring; Complete Time: 22:45 [facility] 08/13 21:19 Order name: EKG - Nurse/Tech; Complete Time: 22:45 [facility] 08/13 21:19 Order name: IV Saline Lock; Complete Time: 21:48 [facility] 08/13 21:19 Order name: Labs collected and sent; Complete Time: 21:48 [facility] 08/13 21:19 Order name: O2 Per Protocol; Complete Time: 21:48 [facility] 08/13 21:19 Order name: O2 Sat Monitoring; Complete Time: 21:47 [facility] 08/13 21:19 Order name: CT Head Brain wo Cont [facility] 08/13 21:19 Order name: Magnesium; Complete Time: 23:03 [facility] 08/13 21:19 Order name: NT PRO-BNP; Complete Time: 23:03 [facility] 01/23 21:46 Order name: Urine Dipstick--Ancillary (enter results); Complete Time: 23:03 tt3 Administered Medications: 21:40 Drug: Benadryl 50 mg Route: IVP; Site: left antecubital; ea 23:50 Follow up: Response: No adverse reaction ea 21:45 Drug: NS 0.9% 1000 ml Route: IV; Rate: 1000 ml; Site: left antecubital; ea 23:58 Follow up: Response: No adverse reaction; IV Status: Completed infusion ea 21:45 Drug: Reglan 10 mg Route: IVP; Site: left antecubital; ea 23:40 Follow up: Response: No adverse reaction ea 22:57 Drug: Ativan 1 mg Route: IVP; Site: right antecubital; ea 23:30 Follow up: Response: No adverse reaction ea Disposition: 08/13/20 23:49 Discharged to Home. Impression: Anxiety disorder, unspecified, Alcohol abuse, Diarrhea, unspecified. - Condition is Stable. - Discharge Instructions: Diarrhea, Adult, Alcohol Abuse and Nutrition, Generalized Anxiety Disorder. - Medication Reconciliation Form, Thank You Letter, Antibiotic Education, Prescription Opioid Use, Work release form form. - Follow up: Private Physician; When: 1 - 2 days; Reason: Worsening of condition, Recheck today's complaints, Continuance of care, Re-evaluation by your physician. Follow up: Tasha Maier MD; When: 1 - 2 days; Reason: If symptoms return, Worsening of condition, Recheck today's complaints. - Problem is an ongoing problem. - Symptoms have improved. Signatures: Dispatcher [employer] EDCarol Gallegos RN RN ea Acob, Cheryl, RN RN ca1 Holmes, Maurice, MD MD mh7 Corrections: (The following items were deleted from the chart) 23:57 23:49 08/13/2020 23:49 Discharged to Home. Impression: Anxiety disorder, unspecified; ike Alcohol abuse; Diarrhea, unspecified. Condition is Stable. Forms are Medication Reconciliation Form, Thank You Letter, Antibiotic Education, Prescription Opioid Use. Follow up: Private Physician; When: 1 - 2 days; Reason: Worsening of condition, Recheck today's complaints, Continuance of care, Re-evaluation by your physician. Follow up: Tasha Maier; When: 1 - 2 days; Reason: If symptoms return, Worsening of condition, Recheck today's complaints. Problem is an ongoing problem. Symptoms have improved. mh7
[2020-08-14 00:22] VITALS: TEMP 97.8
[2020-08-14 00:25] VITALS: BP 130/86; O2SAT 99
--- NOTE | 2020-08-14 07:56 | RAD REPORT ---
EXAM DESCRIPTION: RAD - Chest Single View - 08/13/2020 9:46 pm CLINICAL HISTORY: Dizziness, weakness, shortness of breath COMPARISON: Portable August 11 TECHNIQUE: AP portable chest image was obtained 08/13/2020 9:46 pm . FINDINGS: No new mass or consolidation. Interstitial pattern is similar to comparison. Heart and vas culature are normal. No measurable pleural effusion and no pneumothorax. No acute bony abnormality se en. No acute aortic findings suspected. IMPRESSION: Stable chest. No new finding since August 11
--- NOTE | 2020-08-15 13:04 | RAD REPORT ---
EXAM DESCRIPTION: CT - Head Brain Wo Cont - 08/14/2020 1:50 am CLINICAL HISTORY: Dizziness;Headache COMPARISON: 08/12/2020 TECHNIQUE: Axial CT of the head obtained from the skull apex to the skull base without contrast. FINDINGS: No acute hemorrhage identified. Redemonstrated right 0.7 cm hyperdensity in the anterior r ight frontal lobe compatible with previously described cavernoma. No mass, mass effect, shift of the midline, abnormal extra-axial fluid collection or CT evidence of acute ischemic change identified. Th e ventricular system is unremarkable. No acute abnormalities of the supratentorial white matter, ba leonor ganglia, cerebellum, or brainstem. The visualized paranasal sinuses and the mastoid air cells are relatively well aerated. No skull fr acture identified. Visualized orbits and globes are unremarkable. IMPRESSION: 1. No acute intracranial abnormality identified. No significant interval change. This exam was performed according to our departmental dose-optimization program, which includes autom ated exposure control, adjustment of the mA and/or kV according to patient size and/or use of iterati ve reconstruction technique. Electronically signed by: Marvin Vogel 08/13/2020 10:44 PM SENIOR DIRECTOR INSIGHT Due to temporary technical issues with the PACS/Fluency reporting system, reports are being signed by the in house radiologists without review as a courtesy to insure prompt reporting. The interpreting radiologist is fully responsible for the content of the report.
[2020-08-20] MEDS ORDERED: CEFTRIAXONE/SWI 1gm 2 GM/20 ML SYR ONE (08:16)
[2020-08-20] MEDS ORDERED: MORPHINE 4 MG/ML SYR ONE (08:16)
[2020-08-20] MEDS ORDERED: ONDANSETRON 4 MG/2 ML VIAL ONE (08:16)
== END 2020-08-13 23:57 | disposition home or self-care (01) ==
LOC: ER 19:44
DX: F10.20 Alcohol dependence, uncomplicated (principal); R19.7 Diarrhea, unspecified; I10 Essential (primary) hypertension; F17.290 Nicotine dependence, other tobacco product, uncomplicated; Z98.84 Bariatric surgery status
CPT/HCPCS: 36415; 70450; 71045; 80048; 80076; 80307; 80320; 81003; 83735; 83880; 84100; 84443; 84484; 85025; 85610; 93005; 99284; J1200; J2765; J7030

== ENCOUNTER 2020-11-06 18:21 | Inpatient (IN) | payer BC, SELFPAY ==
--- OUTSIDE RECORDS SUMMARY | 2020-11-06 18:25 | XMS REPORT | Continuity of Care Document ---
:1980 Author Organization [facility] t Address [address] [place] [address] Care Team Providers Name Role Phone Srini CHAMBERLAIN, K.H. Attending Clinician Good Patel Attending Clinician Good Patel Admitting Clinician Problems Condition Condition Condition Status Onset Resolution Last Treating Co mments Source Name Details Category Date Date Treatment Clinician Date 71842, Diagnosis Active 2016-02-07 Mem oria MORBID 6-17 21:59:00 l OBESITY 65701, 00:00: [place] MORBID 00 OBESITY Active 01/06/2016 [facility] [id number], Diagnosis Active 2015-12-05 Mem oria REFLUX 5-11 11:03:00 l 06032, 00:00: [place] REFLUX 00 Active 11/30/2015 [facility] Degenerati Problem Active 2016-02-05 M emoria on of 00:26:43 l interverte Andrae n bral disc Degenerati (disorder) on of interverte bral disc (disorder) Active Problem 02/05/2016 [facility] Morbid Problem Active 2016-02-05 Memor ia obesity 00:26:43 l (disorder) Morbid Herm johnny obesity (disorder) Active Problem 02/05/2016 [facility] ILLNESS, Diagnosis Active 2016-02-07 M emoria UNSPECIFIE 21:59:00 l D ILLNESSAndrae n UNSPECIFIE D Active [facility] Acid Problem Resolve 2016-02-05 Kwadwo jase reflux d 00:26:43 l (finding) Acid [place] reflux (finding) Resolved Problem 02/05/2016 [facility] Hypertensi Problem Active 2016-02-05 M emoria ve 00:26:43 l disorder, [place] systemic Hypertensi arterial ve (disorder) disorder, systemic arterial (disorder) Active Problem 02/05/2016 [facility] C/O - low Problem Active 2016-02-05 Me moria back pain 00:26:43 l (context-d C/O - Emily nn ependent low back category) pain (context-d ependent category) Active Problem 02/05/2016 [facility] Allergies, Adverse Reactions, Alerts This patient has no known allergies or adverse reactions. Social History Social Habit Start Date Stop Date Quantity Comments Source Social History 2016-01-19 2016-01-19 [facility] ermann 16:22:14 16:22:14 Medications Ordered Filled [...] Route: IV, l 0.9% IV 19:05: Start [place] 00 date: 02/01/16 14:05:00 CDT, Duration: 30 day, Stop date: 03/02/16 14:04:00 CDT, PRN Line Flush BD Normal No Notes: Memori a Saline -13 (Same as: l Flush 19:05: BD [place] Posiflush) BD Normal No Notes: Memori a Saline 7-13 (Same as: l Flush 19:04: BD [place] Posiflush) Dilaudid No Notes: Memoria 7-13 (Same as: l 16:37: Dilaudid) Lactated No 1,000 mL, Kwadwo jase Ringers - Rate: 80 l Injection 16:34: ml/hr, Andrae [...] 7-13 (Same as: l 16:33: Romazicon) [place] 00 Diphenhydra No Notes: Kwadwo jase mine 7-13 (Same as: l 16:33: Benadryl) [place] 00 Ondansetron No Notes: Kwadwo jase 7-13 (Same as: l 16:33: Zofran) [place] 00 MEDICATION WASTE Product Size: 4 mg Product Wasted: ___ mg Labetalol No Notes: Memori a 7-13 (Same as: l 16:33: Normodyne, [place] 00 Trandate) Push over 2 minutes Give bolus over 2-3 minutes. Ketorolac No 4 days Memor ia 7-13 l 16:33: MEDICATION [place] 00 WASTE Product Size: 30 mg Product Wasted: ___ mg Morphine No Notes: Memoria 7-13 (Same l 16:33: as:MORPhin [place] 00 e Sulfate) Fentanyl No Notes: Memoria 7-13 (Same as: l 16:33: Sublimaze) [place] 00 Preservat kallie free. Naloxone No Notes: Memoria 7-13 Same as l 12:44: Narcan [place] 00 Flumazenil No Notes: Memor ia 7-13 (Same as: l 12:44: Romazicon) [place] 00 Ondansetron No Notes: Kwadwo jase 7-13 (Same as: l 12:44: Zofran) [place] 00 MEDICATION WASTE Product Size: 4 mg Product Wasted: ___ mg Ancef 2015- No Notes: Memoria 7-13 Same as: l 05:00: Ancef [place] 00 Ondansetron No Notes: Kwadwo jase 5-13 (Same as: l 13:11: Zofran) [place] 00 MEDICATION WASTE Product Size: 4 mg Product Wasted: ___ mg Promethazin 2015- No Notes: Do M emoria e 5-13 not give l 13:11: IV push. [place] 00 (Same as: Phenergan) Naloxone No Notes: Memoria 5-13 Same as l 13:11: Narcan Ephedrine No Notes: Memori a 5-13 (Same as: l 13:11: ePHEDrine Sulfate) Diphenhydra No Notes: Kwadwo jase mine 5-13 (Same as: l 13:11: Benadryl) Flumazenil No Notes: Memor ia 5-13 (Same as: l 13:11: Romazicon) Sodium No 500 mL, Memoria Chloride 5-13 Rate: 125 l 0.154 13:11: ml/hr, MEQ/ML [...] tab, PO, l tablet 12:48: Daily, # [place] 00 30 tab, 0 Refill(s) HYDROcodone Yes 10 mg = 1 M emoria 10 mg oral 5-13 cap, PO, l capsule, 12:48: Q12H, 0 Andrae n extended 00 Refill(s) release Vital Signs Vital Name Observation Time Observation Value Comments Source Systolic (mm Hg) 2016-02-03 01:00:00 Kwadwo rial [place] Diastolic (mm Hg) 2016-02-03 01:00:00 Mem orial [place] Heart Rate 2016-02-03 01:00:00 [facility] [place] Temperature Oral (F) 2016-02-03 01:00:00 98 F [facility] [place] Respitory Rate 2016-02-03 01:00:00 Memori al [place] Temperature Oral (F) 2016-02-02 20:58:00 98.1 F [facility] [place] Respitory Rate 2016-02-02 20:58:00 Memori al [place] Systolic (mm Hg) 2016-02-02 20:58:00 Kwadwo rial [place] Diastolic (mm Hg) 2016-02-02 20:58:00 Mem orial [place] Heart Rate 2016-02-02 20:58:00 [facility] [place] Systolic (mm Hg) 2016-02-02 17:07:00 Kwadwo rial [place] Diastolic (mm Hg) 2016-02-02 17:07:00 Mem orial [place] Heart Rate 2016-02-02 17:07:00 [facility] [place] Respitory Rate 2016-02-02 17:07:00 Memori al [place] Temperature Oral (F) 2016-02-02 17:07:00 98.2 F [facility] [place] Height 2016-01-19 15:41:00 180.34 cm [facility] [place] Weight 2016-01-19 15:41:00 [facility] [place] BMI Calculated 2016-01-19 15:41:00 Memori al [place] Weight 2015-12-02 12:45:00 [facility] [place] Height 2015-12-02 12:45:00 182.88 cm [facility] [place] BMI Calculated 2015-12-02 12:45:00 Memori al [place] Procedures Procedure Date / Time Performed Performing Clinician [facility] e Epidural steroid Memorial Andrae n injection Incision and drainage of Memoria l [place] abscess of [place] Encounters Start End Encounter Admission Attending Care Care Encounter Source Date/Time Date/Time Type Type Clinicians Facility Department ID 2020-04-14 2020-04-14 [place] [facility] [id number] 00:00:00 00:00:00 Royal Lopez [id number] [place] [id number] [id number] nal 059 [facility] 2016-02-01 2016-02-02 Outpatient Primomo, [facility] [id number] 11:34:00 21:41:00 Vincent Funk 2015-12-02 2015-12-02 Outpatient Primomo, [facility] [id number] 07:06:00 09:05:00 Vincent Cathy Good Results Test [...] code = MCH) 27.2 pg 27.0-31.0 [facility] RxpnsezGGBSOZJBBZ7825-03-83 10:38:0033.0[facility] 2016-02-02 10:38:0012.9[facility] FosxegcUQJJWTBECY4776-61-87 10:38:0013.4[facility] LnintgsLDGACYITJX4461-74-81 10:38:0040.7[facility] YqpehsiUGIVNNEWOI2797-69-56 10:38:0082.6[facility] MlailxaARGYCJKLUX9820-16-11 10:38:93494Jjtmhqfu [place] JWHRMBKOEC2570-63-14 10:38:007.8[facility] SzcxocnBIRTGXDJOS7276-27-48 10:38:00 12.3[facility] IzxbwlyUTPPRTLPPP1982 10:38:004.93[facility]ann[facility] 2016-02-02 10:38:009.6[facility] YkykogtCLFMXNSMBB5588-00-96 10:38:001.9[facility] HtplgvxVSYSESFZTW2815-74-11 10:38:000.5[facility] JwhyqjaAQJJCHRSDM2141-40-48 10:38:000.0[facility] ZspntkiYLKGBWVDQY6987-31-86 10:38:000.2[facility] [place] MQPNTLWQAE8201-35-87 10:38:004.3[facility] PkcvcwaPBESCXAALX2279-07-24 10:38:000.0 [facility] OmxsuqtTJJCAGPZVZ0680-50-27 10:38:001.8[facility]ann[facility]MATOLOGY 2016-02-02 10:38:0078.6[facility] ArdrjarDEAPUNSHWF5094-47-11 10:38:0015.3[facility] HtfvvadBQAKEEMBYI3555-68-12 10:38:00 Test Item Value Reference Range Interpretation Comments PTT (test code = PTT) 36.0 s 22.9-35.8 [facility] BbgnscvPQOZRWQGDC5111-13-60 10:38:00 Test Item Value Reference Range Interpretation Comments PT (test code = PT) 15.5 s 12.0-14.7 [facility] MjyxnjvFBHTGJGVDI6298-66-20 10:38:001.20[facility]annBL[facility]OD BANK IVVTSIU8106-99-53 13:22:00Negative (02/01/16 8:22 AM)[facility]annCHEM PANEL 2016-01-19 16:50:0024[facility] HermannCHEM XDFGL9678-83-56 16:50:0035[facility] HermannCHEM ELNBR9914-54-43 16:50:0030[facility]annCHEM KAFQR7800-48-92 16:50:003.9[facility] HermannCHEM PAUFJ5615-76-07 16:50:0023[facility]annCHEM JCLGY8803-69-83 16:50:39060Zzoajvrh HermannCHEM XCMYG6132-30-93 16:50:000.96 [facility]annCHE[facility] AOLJA4424-88-25 16:50:0016[facility]annCHEM PANEL 2016-01-19 16:50:08196Kfkzywxm HermannCHEM TRIXC1783-39-57 16:50:99775Jfxyerlr HermannCHEM IRILA4565-69-46 16:50:004.2[facility]annCHEM MEELF7185-03-75 16:50:60854Wwxeiwdv HermannCHEM FYJAQ5972-53-97 16:50:009.4[facility] HermannCHEM HWKLC6759-65-10 16:50:000.8[facility] HermannCHEM PPQCU7760-37-30 16:50:62462 [facility]annCHEM KTEKP5206-97-64 16:50:008.0[facility] HermannCHEM PANEL 2016-01-19 16:50:0017[facility] HermannCHEM IIGJZ7850-19-04 16:50:0012.2[facility]annCHEM ECNVU0376-68-66 16:50:001.0[facility]annCHEM MSUFI5079-67-54 16:50:004.1[facility] MlvykblWNRHLVPCPS0036-10-56 16:50:00 Test Item Value Reference Range Interpretation Comments PTT (test code = PTT) 38.8 s 22.9-35.8 [facility] XhvmolnIGJBEXXSCV2531-55-32 16:50:00 Test Item Value Reference Range Interpretation Comments PT (test code = PT) 14.1 s 12.0-14.7 [facility] ZrixlysUSNVCRUTZT7138-71-11 16:50:001.06[facility]annHEMATOLOGY 2016-01-19 16:50:0012.9[facility] YzjnxiaGLMDWAEMCC3038-42-60 16:50:22211Ivcjewds QvzgoajGHPLBHHBWJ8672-23-93 16:50:0033.0[facility] IjkdwrfQDEIWDUPUN2699-32-16 16:50:007.1[facility] DgrmeduPNHVALMPIR0948-17-46 16:50:0083.0[facility] [place] JZNFKRWRNO4664-66-08 16:50:00 Test Item Value Reference Range Interpretation Comments MCH (test code = MCH) 27.4 pg 27.0-31.0 [facility] XiatrgbCGRANQZUKL9021-86-35 16:50:0044.5[facility]annHEMATOLOGY 2016-01-19 16:50:0014.7[facility] NortwceVHHNPAVLKD1265-09-82 16:50:005.36[facility] MqwsvcmPBYQPNXTMJ1366-62-25 16:50:008.3[facility] HeauypuGSLLOHLRET1627-80-08 16:50:000.4[facility] EbkabwdEOATUNTCEJ6471-65-34 16:50:000.0[facility] [place] WNCKGDXJQY2412-47-94 16:50:000.7[facility] UqpifbkUQVJFNVSPG1505-12-62 16:50:000.5 [facility] WbcbxzqTXIXXODZVE8345-14-52 16:50:000.1[facility]annHEMATOLOGY 2016-01-19 16:50:002.4[facility] SwiihwmTMGHWXEIKZ8176-98-78 16:50:005.3[facility] NfmocquWGPDHAUWXW2222-70-24 16:50:004.8[facility] EqittcjLMWASBBNLD1459-69-75 16:50:0029.4[facility] KmxizlvLXOIWNLYIR2229-97-95 16:50:0064.6[facility] [place] PARATHYROID YQRHLOW6757-92-65 16:50:0059.5[facility] HermannSPECIAL CHEMISTRY 2016-01-19 16:50:005.5[facility]annURINE AND SAHVP4534-30-31 16:15:001.017 [facility] RGWOV5066-58-16 16:15:00Negative (01/19/16 11:15 AM) [facility] LAOUA5734-11-14 16:15:00Negative *NA*(01/19/16 11:15 AM)[facility] RUOLY6521-16-73 16:15:005.0[facility] AND LDCVQ9182-32-43 16:15:00<1[facility] AND VRPRJ7949-83-46 16:15:00Small *ABN*(01/19/16 11:15 AM)[facility] WQWEY9564-71-94 16:15:00Negative (01/19/16 11:15 AM)[facility] AND XEHSG8205-90-17 16:15:00Performed *NA*(01/19/16 11:15 AM)[facility] AND STOOL 2016-01-19 16:15:00Light Yellow *NA*(01/19/16 11:15 AM)[facility] AND RHSFT2503-32-53 16:15:00Clear (01/19/16 11:15 AM)[facility]
[2020-11-06 19:38] LABS: Absolute Lymphocytes (CBC) 1.9 K/uL (0.7-4.9); Basophils % 0.6 % (0-1.3); Hematocrit 48.3 % (39.6-49.0); Lymphocytes % 14.5 % (15.3-44.8); MPV 7.2 fL (7.6-11.3); RBC Red Blood Cell Count 5.34 M/uL (4.33-5.43)
[2020-11-06] MEDS ORDERED: ONDANSETRON 4 MG/2 ML VIAL ONE ×3 (19:56→22:20)
[2020-11-06] MEDS ORDERED: NA CHLORIDE 0.9% 1,000 ML ONE ×3 (19:56→22:21)
[2020-11-06] MEDS ORDERED: MORPHINE 4 MG/ML SYR ONE ×2 (19:56→21:16)
[2020-11-06 20:05] LABS: Albumin 4.4 g/dL (3.4-5.0); Bilirubin Direct 0.3 mg/dL (0-0.2); Potassium 4.6 mmol/L (3.5-5.1); Protein, Total 8.6 g/dL (6.4-8.2)
--- NOTE | 2020-11-06 20:31 | RAD REPORT ---
EXAM DESCRIPTION: CT - Abdomen Pelvis W Contrast - 11/06/2020 8:17 pm CLINICAL HISTORY: Abdominal pain COMPARISON: none. TECHNIQUE: Computed axial tomography of the abdomen pelvis was obtained. 100 cc Isovue-300 was admin istered intravenously. Oral contrast was not requested which limits evaluation of bowel. All CT scans are performed using dose optimization technique as appropriate and may include automated exposure control or mA/KV adjustment according to patient size. FINDINGS: Fatty liver. Pancreatic head is mildly inhomogeneous. Moderate peripancreatic stranding with ill-defined fluid in the peripancreatic fat. No pseudocyst There is no evidence of diverticulitis. Normal appendix Small umbilical hernia. Postsurgical changes involve the stomach and small bowel IMPRESSION: Moderate pancreatitis
--- NOTE | 2020-11-06 20:31 | RAD REPORT ---
EXAM DESCRIPTION: US - Abdomen Exam Limited - 11/06/2020 8:22 pm CLINICAL HISTORY: Abdominal pain. COMPARISON: 2019 FINDINGS: The gallbladder wall is not thickened. A gallstone is not seen. Small amount of gallbladd er sludge The biliary tree is normal caliber. IMPRESSION: Small amount of gallbladder sludge
--- NOTE | 2020-11-06 20:38 | ER ---
Nurse's Notes [facility] Name: Marquise Jhaveri Age: 39 yrs Sex: Male : 1980 Arrival Date: 11/06/2020 Time: 18:23 Bed 3 Private MD: Diagnosis: Acute pancreatitis Presentation: 11/06 18:28 Chief complaint: Patient states: "I ate some left over taco wong yesterday and almost jd3 immediately after I started to have upper stomach pain with nausea and vomiting.". Coronavirus screen: At this time, the client does not indicate any symptoms associated with coronavirus-19. Ebola Screen: Patient negative for fever greater than or equal to 101.5 degrees Fahrenheit, and additional compatible Ebola Virus Disease symptoms. Initial Sepsis Screen: Does the patient meet any 2 criteria? No. Patient's initial sepsis screen is negative. Does the patient have a suspected source of infection? No. Patient's initial sepsis screen is negative. Risk Assessment: Do you want to hurt yourself or someone else? Patient reports no desire to harm self or others. Onset of symptoms was November 05, 2020. 18:28 Method Of Arrival: Ambulatory jd3 18:28 Acuity: ARNULFO 3 jd3 Triage Assessment: 18:30 General: Appears distressed, uncomfortable, obese, Behavior is cooperative, appropriate bp for age, anxious. Pain: Complains of pain in abdomen. EENT: No deficits noted. Neuro: Level of Consciousness is awake, alert, obeys commands, Oriented to person, place, time, situation, Appropriate for age. Cardiovascular: No deficits noted. Respiratory: No deficits noted. GI: Reports upper abdominal pain, nausea, vomiting. : No signs and/or symptoms were reported regarding the genitourinary system. Derm: Skin is diaphoretic, Skin is pale. Musculoskeletal: No deficits noted. Historical: - Allergies: 18:30 No Known Allergies; jd3 - Home Meds: 18:30 Hydrocodone-Acetaminophen Oral [Active]; Flexeril Oral [Active]; lisinopril Oral jd3 [Active]; Propranolol Oral [Active]; Cymbalta oral oral [Active]; - PMHx: 18:30 Anxiety; gastric bypass; Hypertension; jd3 - PSHx: 18:30 Disc surgery; jd3 - Immunization history:: Adult Immunizations up to date. - Social history:: Smoking status: Reported history of juuling and/or vaping. Screenin:30 Abuse screen: Denies threats or abuse. Denies injuries from another. Nutritional bp screening: No deficits noted. Tuberculosis screening: No symptoms or risk factors identified. Fall Risk None identified. Assessment: 18:30 General: SEE TRIAGE NOTE. bp 19:27 General: Appears uncomfortable, ill, Behavior is restless. Pain: Complains of pain in lp1 epigastric area Pain currently is 10 out of 10 on a pain scale. Neuro: Level of Consciousness is awake, alert, obeys commands, Oriented to person, place, time, situation. Cardiovascular: Capillary refill < 3 seconds in bilateral fingers. Respiratory: Respiratory effort is even. GI: Abdomen is non-distended, Bowel sounds present X 4 quads. Abdomen is tender to palpation in epigastric area Reports constipation. : No signs and/or symptoms were reported regarding the genitourinary system. EENT: No signs and/or symptoms were reported regarding the EENT system. Derm: Skin is intact, Skin is diaphoretic, Skin is pale. Musculoskeletal: No deficits noted. 19:59 Reassessment: Ultrasound at bedside. lp1 Vital Signs: 18:30 BP 154 / 117; Pulse 79; Resp 17 S; Temp 98.3(TE); Pulse Ox 100% on R/A; Weight 117.93 jd3 kg (R); Height 6 ft. 0 in. (182.88 cm) (R); Pain 10/10; 19:26 BP 170 / 107; Pulse 77; Resp 22; Pulse Ox 99% on R/A; Pain 10/10; lp1 18:30 Body Mass Index 35.26 (117.93 kg, 182.88 cm) jd3 ED Course: 18:23 Patient arrived in ED. am2 18:25 Gabby Julian FNP-C [facility]. kb 18:25 Adalid Capone MD is Attending Physician. kb 18:29 Triage completed. jd3 18:30 Patient has correct armband on for positive identification. Bed in low position. Call bp light in reach. Side rails up X2. 18:32 Arm band placed on. jd3 18:57 Bradford Escobar, ANAHY is Primary Nurse. bp 19:15 Primary Nurse role handed off by Bradford Escobar RN mw2 19:18 Heather Wan RN is Primary Nurse. lp1 20:17 CT Abd/Pelvis - IV Contrast Only In Process Unspecified. EDMS 20:22 US Abdomen Limited In Process Unspecified. EDMS 20:37 Tasha Maier MD is Hospitalizing Provider. kb 21:07 No provider procedures requiring assistance completed. Patient admitted, IV remains in lp1 place. 11/07 00:54 Inserted saline lock: 20 gauge in left antecubital area, using aseptic technique. oe 07:26 Primary Nurse role handed off by Heather Wan RN sv 07:26 Judie Arroyo RN is Primary Nurse. sv 08:08 CORONAVIRUS Sent. sv 08:08 COVID-19 : Document "Date of Symptom Onset" if Symptomatic. Sent. sv 08:08 ABG Sent. sv 08:08 CXR XRAY Sent. sv 19:15 Primary Nurse role handed off by Judie Arroyo RN sv 04 10:20 Zofia Tristan RN is Primary Nurse. ap3 10:20 Primary Nurse role handed off by Zofia Tristan RN sv 10:20 Judie Arroyo RN is Primary Nurse. sv 19:25 Primary Nurse role handed off by Judie Arroyo RN mw2 Administered Medications: 11/06 19:40 Drug: NS 0.9% 1000 ml Route: IV; Rate: 1000 ml; Site: right antecubital; lp1 19:40 Drug: Zofran (Ondansetron) 4 mg Route: IVP; Site: right antecubital; lp1 20:00 Follow up: Response: No adverse reaction lp1 19:40 Drug: morphine 4 mg Route: IVP; Site: right antecubital; lp1 20:00 Follow up: Response: Pain is decreased lp1 21:04 Drug: morphine 4 mg Route: IVP; Site: right antecubital; ea 21:05 Drug: NS 0.9% 1000 ml Route: IV; Rate: 125 ml/hr; Site: right antecubital; ea 21:44 Follow up: IV Status: Infusion continued upon admission lp1 21:05 Drug: Zofran (Ondansetron) 4 mg Route: IVP; Site: right antecubital; ea 11/08 06:30 Drug: NS 0.9% 1000 ml Route: IV; Rate: 1000 ml; Site: left antecubital; 06:31 Drug: NS 0.9% 1000 ml Route: IV; Rate: 1000 ml; Site: right antecubital; Outcome: 11/06 20:38 Decision to Hospitalize by Provider. kb 21:07 Condition: stable lp1 21:07 Instructed on the need for admit. 21:43 Admitted to ER Hold. Please see [facility] for further documentation. lp1 11/08 19:32 Patient left the ED. ss Signatures: Dispatcher [employer] EDMS Gabby Julian, COMPANY P[employer]C COMPANY PILOT-CkJudie Schuster, RN RN Chyna Erwin RN RN Heather Wan RN RN lp1 Nam Bradshaw Amanda am2 Antunez, Elena, RN RN ea Habalo, Winsy, RN RN Jose Antonio Prasad RN RN jd3 Peltier, Brian, RN RN bp Prokisch, Amanda, RN RN ap3 Tessie Levy 2
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
[2020-11-06 21:28] LABS: HDL Cholesterol 48 mg/dL (40-60)
[2020-11-06 21:47] LABS: LDL, Direct 123 mg/dL (100-129)
[2020-11-06] MEDS ORDERED: MORPHINE 2 MG/ML SYR IV PRN (21:48)
[2020-11-06] MEDS ORDERED: NA CHLORIDE 0.9% 1,000 ML IV SCH (21:48)
[2020-11-06] MEDS ORDERED: GLUCAGON 1 MG/VIAL IM PRN (22:08)
[2020-11-06] MEDS: HYDROMORPHONE HCL 1 MG/ML INJ IV PRN (22:14)
[2020-11-06] MEDS: ONDANSETRON 4 MG/2 ML VIAL IV PRN (22:14)
[2020-11-06] MEDS ORDERED: INSULIN -REGULAR HUMAN 100 UNIT in NA CHLORIDE 0.9% 100 ML IV SCH (22:15)
[2020-11-06] MEDS ORDERED: HYDROMORPHONE HCL 1 MG/ML INJ ONE (22:20)
[2020-11-06] MEDS ORDERED: D5W 0 ML IV ONE (22:38)
[2020-11-06] MEDS ORDERED: HYDROMORPHONE HCL 0.5 MG/0.5 ML INJ IV PRN (23:00)
[2020-11-06] MEDS: D5 0.45 NS 1,000 ML IV SCH (23:00)
[2020-11-06] MEDS ORDERED: D5W 1,000 ML IV SCH (23:00)
[2020-11-06] MEDS ORDERED: HYDROMORPHONE HCL 0.5 MG/0.5 ML INJ ONE (23:23)
[2020-11-06] MEDS ORDERED: D5 0.45 NS 1,000 ML IV ONE (23:23)
--- NOTE | 2020-11-06 23:51 | P.HP ---
Certification for Inpatient Patient admitted to: Inpatient With expected LOS: >2 Midnights Patient will require the following post-hospital care: None Practitioner: I am a practitioner with admitting privileges, knowledge of patient current condition, hospital course, and medical plan of care. Services: Services provided to patient in accordance with Admission requirements found in Title 42 Section 412.3 of the Code of Federal Regulations Patient History Date of Service: 11/06/20 Reason for admission: Pancreatitis History of Present Illness: 39-year-old male with history of hypertension, anxiety, chronic pain, alcohol abuse presents emergency department for abdominal pain. Patient evaluated in the emergency department, labs significant for elevated white blood cell count 12.8 glucose 120 to AST 170 ALT 171, alk-phos 176 lipase 3139, CT demonstrates moderate pancreatitis without pseudocyst or necrosis noted abdominal ultrasound performed due to elevated LFTs as well, small amount of sludge without any other acute findings noted. Lipid panel ordered while patient was in the emergency department demonstrates triglycerides 728, cholesterol 230. ED provider wishes to admit for acute pancreatitis. Allergies No Known Allergies Allergy (Unverified 05/31/12 20:12) Home Medications: Cyclobenzaprine [Flexeril*] 1 tab PO Q8H 02/11/19 Hydrocodone/Acetaminophen [Hydrocodone-Acetamin 5-325 mg] 1 tab PO Q6H PRN 02/11/19 Levetiracetam [Keppra] 500 mg PO BID #60 tablet 02/13/19 lisinopriL [Prinivil*] 20 mg PO BID #60 tab 02/13/19 - Past Medical/Surgical History Diabetic: No -: Hypertension -: Chronic pain -: Alcohol use -: History of gastric bypass -: Gastric bypass -: lumbar surgery Psychosocial/ Personal History: Patient is - Family History Mother -: Hypertension Father -: Heart disease, Diabetes - Social History Smoking Status: Never smoker Alcohol use: Yes CD- Drugs: No Caffeine use: Yes Place of Residence: Home Review of Systems 10-point ROS is otherwise unremarkable Gastrointestinal: Nausea, Abdominal Pain Physical Examination - Vital Signs Respirations: 20 Pulse Ox (%): 98 - Physical Exam General: Alert, In no apparent distress HEENT: Atraumatic, PERRLA, Mucous membr. moist/pink, EOMI, Sclerae nonicteric Neck: Supple, 2+ carotid pulse no bruit, No LAD, Without JVD or thyroid abnormality Respiratory: Clear to auscultation bilaterally, Normal air movement Cardiovascular: Regular rate/rhythm, Normal S1 S2 Gastrointestinal: Normal bowel sounds, No rebound, No guarding, Tenderness (Mild to moderate generalized abdominal tenderness) Musculoskeletal: No tenderness Integumentary: No rashes Neurological: Normal gait, Normal speech, Normal strength at 5/5 x4 extr, Normal tone, Normal affect Lymphatics: No axilla or inguinal lymphadenopathy - Studies Laboratory Data (last 24 hrs) 11/06/20 19:22: Triglycerides 728 H, Cholesterol 230 H, LDL Cholesterol Direct 123, HDL Cholesterol 48, Cholesterol/HDL Ratio 4.79 11/06/20 19:22: WBC 12.80 H, Hgb 16.3, Hct 48.3, Plt Count 335 11/06/20 19:22: Sodium 134 L, Potassium 4.6, BUN 11, Creatinine 1.01, Glucose 122 H, Total Bilirubin 1.0, AST 170 H, ALT 171 H, Alkaline Phosphatase 176 H, Lipase 3139 H Assessment and Plan - Plan Assessment Acute pancreatitis likely secondary to chronic alcohol abuse complicated with hypertriglyceridemia Elevated LFTs Hyperglycemia Hypertension Plan Acute pancreatitis likely secondary to chronic alcohol abuse complicated with hypertriglyceridemia: NPO, IVF, p.r.n. pain meds, anti emetics. Trend lipase level. Triglycerides around 700, insulin drip initiated until triglycerides can be lowered below 500 at which time patient can be switched over to oral triglyceride lowering agent such as Lopid. Will continue with q.1h Accu-Cheks and D5 half NS to maintain blood sugar levels between 150 - 200. DVT prophylaxis Lovenox 40 mg subcutaneous once daily. Discussed need for tobacco cessation the patient. Patient reports he drinks approximately 1 bottle of wine per day, will monitor for signs of alcohol withdrawals. Elevated LFTs: Likely rated to chronic alcohol use, CT, abdominal ultrasound do not show any biliary pathology. Discussed need for alcohol cessation. Hyperglycemia: Blood sugar 122 random in the ED, A1c pending. Hypertension: Obtain and continue home medications, IV hydralazine for now. Discharge Plan: Home Plan to discharge in: Greater than 2 days - Advance Directives Does patient have a Living Will: No Does patient have a Durable POA for Healthcare: No - Code Status/Comfort Care Code Status Assessed: Yes (Full code) Critical Care: No Time Spent Managing Pts Care (In Minutes): 55
[2020-11-07] MEDS ORDERED: NA CHLORIDE 0.9% 100 ML ONE (00:52)
[2020-11-07] MEDS ORDERED: INSULIN -REGULAR HUMAN 50 UNIT/0.5 ML ML ONE (00:52)
[2020-11-07] MEDS: HYDROMORPHONE HCL 1 MG/ML INJ IV PRN ×3 (01:50→17:39)
[2020-11-07] MEDS ORDERED: HYDROMORPHONE HCL 1 MG/ML INJ ONE ×3 (02:03→17:55)
[2020-11-07] MEDS ORDERED: FLUMAZENIL 0.1 MG/ML (5 mL VIAL) IV PRN (03:09)
[2020-11-07] MEDS: LORazepam 2 MG/ML VIAL IV SCH ×2 (03:18→03:50)
[2020-11-07] MEDS: PROMETHAZINE INJ 25 MG/ML AMP IV PRN (03:18)
[2020-11-07] MEDS ORDERED: NA CHLORIDE 0.9% 1,000 ML IV ONE ×3 (03:19→17:22)
[2020-11-07] MEDS ORDERED: NA CHLORIDE 0.9% 1,000 ML ONE ×6 (03:21→20:55)
[2020-11-07] MEDS ORDERED: LORazepam 2 MG/ML VIAL ONE ×11 (03:24→20:54)
[2020-11-07] MEDS ORDERED: PROMETHAZINE INJ 25 MG/ML AMP ONE (03:24)
[2020-11-07] MEDS ORDERED: METOPROLOL TARTRATE 5 MG/5 ML INJ IV ONE ×2 (04:10→22:21)
[2020-11-07 04:15] LABS: Arterial Blood Carboxyhemoglob 1.4 % (0-1.5); Blood Gas Oxyhemoglobin 91.5 % (94-97); Blood O2 Saturation 93.8 % (92-98.5)
[2020-11-07] MEDS ORDERED: METOPROLOL TARTRATE 5 MG/5 ML INJ IV STA (04:22)
[2020-11-07] MEDS ORDERED: DIAZEPAM 10 MG/2 ML INJ SYRINGE ONE ×8 (04:23→06:20)
[2020-11-07] MEDS ORDERED: DIAZEPAM 10 MG/2 ML INJ SYRINGE IV ONE ×8 (04:23→06:23)
[2020-11-07] MEDS ORDERED: LORazepam 2 MG/ML VIAL IV SCH (05:00)
[2020-11-07 05:12] LABS: Absolute Lymphocytes (CBC) 0.9 K/uL (0.7-4.9); Basophils % 0.1 % (0-1.3); Hematocrit 46.5 % (39.6-49.0); Lymphocytes % 5.5 % (15.3-44.8); MPV 7.5 fL (7.6-11.3); RBC Red Blood Cell Count 5.16 M/uL (4.33-5.43)
[2020-11-07] MEDS: D5 0.45 NS 1,000 ML IV SCH (05:40)
[2020-11-07 05:46] LABS: ALT/SGPT 121 U/L (12-78); AST/SGOT 104 U/L (15-37); Albumin 3.4 g/dL (3.4-5.0); Alkaline Phosphatase 133 U/L (45-117); BUN Blood Urea Nitrogen 10 mg/dL (7-18); Bicarbonate 28 mmol/L (21-32); Bilirubin Total 0.8 mg/dL (0.2-1.0); Glucose Level 102 mg/dL (74-106); Lipase 2852 U/L (73-393); Magnesium 1.9 mg/dL (1.8-2.4); Phosphorus 2.6 mg/dL (2.5-4.9); Protein, Total 7.1 g/dL (6.4-8.2); Sodium Level 136 mmol/L (136-145); Thyroid Stimulating Hormone 0.396 uIU/mL (0.360-3.740)
[2020-11-07] MEDS ORDERED: RSI MEDICATION KIT IV ONE (06:17)
[2020-11-07] MEDS ORDERED: propofoL 1,000 MG/100 ML VIAL IV ONE ×4 (06:18→23:04)
[2020-11-07] MEDS ORDERED: ETOMIDATE 20 MG/10 ML VIAL IV ONE ×3 (06:33→11:07)
[2020-11-07] MEDS ORDERED: SUCCINYLCHOLINE 20 MG/ML (10 ML) IV ONE ×2 (06:35→11:07)
[2020-11-07] MEDS ORDERED: MIDAZOLAM HCL 2 MG/2 ML INJ ONE ×3 (06:39→07:00)
--- NOTE | 2020-11-07 06:56 | P.PN ---
Date of Service: 11/07/20 Throughout the night patient became more more confused, tachycardic, hypertensive. Patient was initiated on delirium tremens prophylaxis medications and was given Ativan 2 mg x2 the heart rate continued to increase in the 150s 160s with sinus tachycardia. Patient was given boluses of Valium 10 mg every 5- 10 min and went through approximately 70-80 mg of Valium, patient was still awake, disoriented, tachycardic to the 150s. After discussing case with hospitalist the decision was made to intubate the patient for airway protection and adequate treatment of delirium tremens. Intubation attempted initially with MAC 4, unable to obtain adequate review, switched to glide scope but still had significant difficulty, ED physician made to attempts at intubation with MAC 4 and glide scope but was also unsuccessful. At this time anesthesiology was called, the succs was allowed to wear off and patient was able to breathe spontaneously while awaiting anesthesiology arrival. Patient was saturating 100%. Anesthesiology arrived and intubated patient with my scope on 1st pass, patient tolerated procedure well. Will continue with ICU admission, delirium tremens medications. Appreciate assistance from anesthesiology.
[2020-11-07] MEDS ORDERED: FENTANYL CITR 100 MCG/2 ML IV PRN (06:57)
[2020-11-07] MEDS ORDERED: NA CHLORIDE 0.9% 250 ML IV PRN (06:57)
--- NOTE | 2020-11-07 07:04 | RAD REPORT ---
EXAM DESCRIPTION: RAD - Chest Single View - 11/07/2020 4:39 am CLINICAL HISTORY: tachycardia COMPARISON: Portable August 13 TECHNIQUE: AP portable chest image was obtained 11/07/2020 4:39 am . FINDINGS: Lung volumes are very low. He was accentuates heart, vasculature and lung markings. No per ipheral mass or consolidation. Trachea is midline. No measurable pleural effusion and no pneumothorax . No acute bony abnormality seen. No acute aortic findings suspected. IMPRESSION: Shallow inspiration portable exam causes accentuation of heart, vasculature and lung [place]. No peripheral mass or consolidation. Significant failure or volume overload are unlikely.
[2020-11-07] MEDS: LORazepam 2 MG/ML VIAL IV PRN ×9 (07:10→20:48)
[2020-11-07] MEDS: HALOPERIDOL LACT 5 MG/ML INJ IV PRN ×3 (07:15→16:56)
[2020-11-07] MEDS ORDERED: HALOPERIDOL LACT 5 MG/ML INJ ONE ×3 (07:27→17:10)
[2020-11-07 07:32] LABS: Blood Morphology Comment NOT SEEN (NOT SEEN); Platelet Estimate ADEQ; Platelets, Giant PRESENT; White Blood Cell Scan OK (OK)
[2020-11-07] MEDS ORDERED: ACETAMINOPHEN 500 MG TAB ONE ×2 (07:39→12:27)
[2020-11-07] MEDS: ACETAMINOPHEN 500 MG TAB PO PRN ×2 (07:41→12:27)
--- NOTE | 2020-11-07 07:52 | EKG ---
Test Date: 2020-11-07 Test Time: 03:53:01 Pearl Stringer: CHELO MEASUREMENT RESULTS: Intervals: Rate: 152 CO: 126 QRSD: 82 QT: 252 QTc: 400 [place]: P: 33 CO: 126 QRS: 0 T: 3 INTERPRETIVE STATEMENTS: Sinus tachycardia Otherwise normal ECG Compared to ECG 08/13/2020 22:31:35 Sinus rhythm no longer present Left ventricular hypertrophy no longer present Electronically Signed On 11-07-20 07:51:49 CDT by Mynor Brennan
[2020-11-07] MEDS ORDERED: D5 0.45 NS 1,000 ML IV ONE (07:55)
[2020-11-07] MEDS: NA CHLORIDE 0.9% 1,000 ML IV SCH ×3 (08:00→20:47)
--- NOTE | 2020-11-07 08:22 | RAD REPORT ---
EXAM DESCRIPTION: RAD - Chest Single View - 11/07/2020 7:35 am CLINICAL HISTORY: post intubation tube placement COMPARISON: November 07 TECHNIQUE: AP portable chest image was obtained 11/07/2020 7:35 am . FINDINGS: Lung volumes are low. Endotracheal tube has been placed. Tip is 4.5 cm above the [place] at the T2-3 level. NG/OG tube has been placed. Tip is in the stomach. Side hole of the tubing is near t he GE junction. Heart, vasculature and lung markings are all accentuated by the supine portable low lung volume exam. No diffuse pulmonary edema. No new peripheral mass or consolidation. Heart size within normal range for shallow inspiration supine exam. No measurable pleural effusion and no pneumothorax. No acute bony abnormality seen. No acute aortic findings suspected. IMPRESSION: Endotracheal tube in good position 4.5 cm above the [place]. NG/ OG tube with tip in the stomach and side hole of the tubing at the GE junction.
[2020-11-07] MEDS ORDERED: FOLIC ACID 1 MG TABLET ONE (08:29)
[2020-11-07] MEDS ORDERED: PIPER/TAZO/NS 3.375gm 0 GM/0 ML BAG ONE (08:29)
[2020-11-07] MEDS ORDERED: ENOXAPARIN 40 MG/0.4 ML SQ ONE (08:29)
[2020-11-07] MEDS ORDERED: FAMOTIDINE 20 MG/2 ML VIAL IV ONE ×2 (08:29→20:55)
[2020-11-07] MEDS: FOLIC ACID 1 MG TABLET PO SCH (08:41)
[2020-11-07] MEDS: ENOXAPARIN 40 MG/0.4 ML SQ SCH (08:41)
[2020-11-07] MEDS: FAMOTIDINE 20 MG/2 ML VIAL IV SCH ×2 (08:42→20:47)
--- NOTE | 2020-11-07 08:53 | P.CNS ---
Date of Consult: 11/07/20 Reason for Consult: Respiratory failure Chief Complaint: Pancreatitis respiratory failure History of Present Illness: Patient is 39 years of age admitted with alcoholic pancreatitis and de DTs he is currently on a ventilator the difficult to manage very agitated Allergies No Known Allergies Allergy (Unverified 05/31/12 20:12) Home Medications: Cyclobenzaprine [Flexeril*] 1 tab PO Q8H 02/11/19 Hydrocodone/Acetaminophen [Hydrocodone-Acetamin 5-325 mg] 1 tab PO Q6H PRN 02/11/19 Levetiracetam [Keppra] 500 mg PO BID #60 tablet 02/13/19 lisinopriL [Prinivil*] 20 mg PO BID #60 tab 02/13/19 - Past Medical/Surgical History Diabetic: No -: Hypertension -: Chronic pain -: Alcohol use -: History of gastric bypass -: Gastric bypass -: lumbar surgery Psychosocial/ Personal History: Patient is - Family History Mother Medical History: Hypertension Father Medical History: Heart disease, Diabetes - Social History Alcohol use: Yes CD- Drugs: No Caffeine use: Yes Place of Residence: Home Review of Systems is unable to be obtained Physical Examination Temp Pulse Resp BP Pulse Ox 102.9 F H 159 H 29 H 133/97 H 95 11/07/20 07:41 11/07/20 06:00 11/07/20 06:00 11/07/20 06:00 11/07/20 06:00 General: Moderate distress Respiratory: Clear to auscultation bilaterally, Friction rub Cardiovascular: Normal S1 S2 Gastrointestinal: Normal bowel sounds, Soft and benign Laboratory Data (last 24 hrs) 11/06/20 19:22: Triglycerides 728 H, Cholesterol 230 H, LDL Cholesterol Direct 123, HDL Cholesterol 48, Cholesterol/HDL Ratio 4.79 11/06/20 19:22: WBC 12.80 H, Hgb 16.3, Hct 48.3, Plt Count 335 11/06/20 19:22: Sodium 134 L, Potassium 4.6, BUN 11, Creatinine 1.01, Glucose 122 H, Total Bilirubin 1.0, AST 170 H, ALT 171 H, Alkaline Phosphatase 176 H, Lipase 3139 H - Problems (1) Respiratory failure Current Visit: Yes Status: Acute Plan: Patient is 39 years of age admitted with alcoholic pancreatitis delirium tremens severe agitation currently on a ventilator labs reviewed mild hepatitis will try dex [place] and in infusion instead of propofol is extremely agitated
[2020-11-07] MEDS: THIAMINE 200 MG/2 ML INJ IVP SCH ×2 (09:00→20:47)
[2020-11-07] MEDS ORDERED: THIAMINE HCL 100 MG TABLET PO SCH (09:00)
[2020-11-07] MEDS ORDERED: CEFTRIAXONE 1 GM/NS 50 ML 1 GM/50 ML BAG IV SCH (09:00)
[2020-11-07] MEDS ORDERED: PIPER/TAZO/NS 3.375gm 3.375 GM/100 ML BAG IVPB SCH (09:00)
[2020-11-07] MEDS: MIDAZOLAM HCL 100 MG in NA CHLORIDE 0.9% 80 ML IV PRN (09:46)
[2020-11-07] MEDS: CEFTRIAXONE/SWI 1gm 1 GM/10 ML SYR IV SCH (11:12)
[2020-11-07] MEDS ORDERED: CEFTRIAXONE/SWI 1gm 1 GM/10 ML SYR ONE (11:20)
[2020-11-07] MEDS ORDERED: WATER FOR INJ,STERILE 10 ML IV SCH (18:00)
[2020-11-07] MEDS: levETIRAcetam 500 MG in NA CHLORIDE 0.9% 100 ML IV SCH (18:14)
[2020-11-07] MEDS: ACETAMINOPHEN 650MG/RECT SUPP PR PRN (20:48)
[2020-11-07] MEDS ORDERED: ACETAMINOPHEN 650MG/RECT SUPP PR ONE (20:55)
[2020-11-07] MEDS ORDERED: HYDROCORTISONE SUC 100 MG INJ ONE (20:55)
[2020-11-07] MEDS: HYDROCORTISONE SUC 100 MG INJ IV SCH (22:00)
[2020-11-07] MEDS: METOPROLOL TARTRATE 5 MG/5 ML INJ IV PRN (22:07)
[2020-11-07] MEDS: propofoL 1,000 MG/100 ML VIAL IV PRN (23:05)
[2020-11-08] MEDS ORDERED: ACETAMINOPHEN 650MG/RECT SUPP PR ONE ×2 (01:13→08:23)
[2020-11-08] MEDS: ACETAMINOPHEN 650MG/RECT SUPP PR PRN (01:21)
[2020-11-08] MEDS: LORazepam 2 MG/ML VIAL IV PRN ×6 (01:21→20:13)
[2020-11-08] MEDS ORDERED: LORazepam 2 MG/ML VIAL ONE ×6 (01:37→20:25)
[2020-11-08] MEDS: HYDROCORTISONE SUC 100 MG INJ IV SCH ×3 (02:57→17:08)
[2020-11-08] MEDS: NA CHLORIDE 0.9% 1,000 ML IV SCH ×3 (03:04→17:07)
[2020-11-08] MEDS ORDERED: HYDROCORTISONE SUC 100 MG INJ ONE ×3 (03:11→17:17)
[2020-11-08] MEDS ORDERED: NA CHLORIDE 0.9% 1,000 ML ONE ×3 (03:19→17:17)
[2020-11-08 03:28] LABS: Barbiturates NEGATIVE (NEGATIVE); Benzodiazepines POSITIVE (NEGATIVE); Cocaine NEGATIVE (NEGATIVE); METHAMPHETAM NEGATIVE (NEGATIVE); Methadone NEGATIVE (NEGATIVE); Opiates POSITIVE (NEGATIVE); Phencyclidine NEGATIVE (NEGATIVE); THC Cannibis NEGATIVE (NEGATIVE)
[2020-11-08] MEDS: METOPROLOL TARTRATE 5 MG/5 ML INJ IV PRN ×3 (04:00→21:25)
[2020-11-08] MEDS ORDERED: METOPROLOL TARTRATE 5 MG/5 ML INJ IV ONE ×3 (04:03→21:26)
[2020-11-08] MEDS: levETIRAcetam 500 MG in NA CHLORIDE 0.9% 100 ML IV SCH ×2 (05:01→18:00)
[2020-11-08] MEDS: propofoL 1,000 MG/100 ML VIAL IV PRN ×3 (05:01→23:01)
[2020-11-08] MEDS ORDERED: propofoL 1,000 MG/100 ML VIAL IV ONE ×5 (05:17→22:55)
[2020-11-08 05:20] LABS: Albumin 2.6 g/dL (3.4-5.0); Bilirubin Total 1.2 mg/dL (0.2-1.0); Magnesium 2.1 mg/dL (1.8-2.4); Phosphorus 1.9 mg/dL (2.5-4.9); Potassium 4.4 mmol/L (3.5-5.1); Protein, Total 6.6 g/dL (6.4-8.2)
[2020-11-08] MEDS ORDERED: PIPER/TAZO/NS 3.375gm 3.375 GM/100 ML BAG ONE ×4 (05:43→22:54)
[2020-11-08 06:13] LABS: Absolute Lymphocytes (CBC) 1.7 K/uL (0.7-4.9); Basophils % 0.1 % (0-1.3); Hematocrit 47.6 % (39.6-49.0); Lymphocytes % 8.1 % (15.3-44.8); MPV 7.9 fL (7.6-11.3); RBC Red Blood Cell Count 5.18 M/uL (4.33-5.43)
[2020-11-08] MEDS ORDERED: NA CHLORIDE 0.9% 2,000 ML ONE (06:48)
[2020-11-08] MEDS ORDERED: HYDROMORPHONE HCL 1 MG/ML INJ ONE ×2 (07:59→15:13)
[2020-11-08] MEDS: HYDROMORPHONE HCL 1 MG/ML INJ IV PRN ×2 (08:00→15:00)
[2020-11-08] MEDS ORDERED: NA CHLORIDE 0.9% 1,000 ML IV ONE ×2 (08:25→09:22)
[2020-11-08] MEDS ORDERED: ENOXAPARIN 40 MG/0.4 ML SQ ONE (08:40)
[2020-11-08] MEDS ORDERED: THIAMINE 200 MG/2 ML INJ ONE ×2 (08:40→20:38)
[2020-11-08] MEDS ORDERED: FAMOTIDINE 20 MG/2 ML VIAL IV ONE ×2 (08:40→20:39)
[2020-11-08] MEDS ORDERED: CEFTRIAXONE/SWI 1gm 1 GM/10 ML SYR ONE (08:41)
[2020-11-08] MEDS ORDERED: FOLIC ACID 1 MG TABLET ONE (08:51)
[2020-11-08] MEDS: MIDAZOLAM HCL 100 MG in NA CHLORIDE 0.9% 80 ML IV PRN (08:53)
[2020-11-08] MEDS: THIAMINE 200 MG/2 ML INJ IVP SCH ×2 (09:00→20:48)
[2020-11-08] MEDS: FAMOTIDINE 20 MG/2 ML VIAL IV SCH ×2 (09:00→20:48)
[2020-11-08] MEDS: CEFTRIAXONE/SWI 1gm 1 GM/10 ML SYR IV SCH (09:00)
[2020-11-08] MEDS: Levofloxacin 750mg IV 750 MG/150 ML BAG IV SCH (09:00)
[2020-11-08] MEDS ORDERED: PIPER/TAZO/NS 3.375gm 3.375 GM/100 ML BAG IVPB SCH (09:00)
[2020-11-08] MEDS ORDERED: SODIUM PHOSPHATE 30 MM in NA CHLORIDE 0.9% 500 ML IV ONE (09:00)
[2020-11-08] MEDS: ENOXAPARIN 40 MG/0.4 ML SQ SCH (09:00)
[2020-11-08] MEDS: FOLIC ACID 1 MG TABLET PO SCH (09:00)
[2020-11-08] MEDS ORDERED: CEFTRIAXONE/SWI 1gm 1 GM/10 ML SYR IV SCH (09:00)
[2020-11-08] MEDS ORDERED: KETOROLAC 30 MG/ML INJ ONE ×2 (09:19→21:25)
[2020-11-08] MEDS ORDERED: ACETAMINOPHEN 160 MG/5 ML UCUP ONE ×3 (09:20→22:00)
[2020-11-08] MEDS ORDERED: Levofloxacin500mg IV 0 MG/0 ML BAG IV ONE (09:20)
[2020-11-08] MEDS ORDERED: KETOROLAC 30 MG/ML INJ IV ONE ×2 (09:22→21:28)
[2020-11-08] MEDS ORDERED: Levofloxacin 750mg IV 750 MG/150 ML BAG IV ONE (09:42)
[2020-11-08 09:44] LABS: Blood Morphology Comment NOT SEEN (NOT SEEN); Platelet Estimate ADEQ
--- NOTE | 2020-11-08 09:45 | RAD REPORT ---
EXAM DESCRIPTION: CT - Chest Abdomen Pelvis W Cont - 11/08/2020 7:03 am CLINICAL HISTORY: The patient is 39 years old and is Male; fever, intubation TECHNIQUE: Axial computed tomography images of the chest, abdomen and pelvis with intravenous contra st. Sagittal and coronal reformatted images were created and reviewed. This CT exam was performed using one or more of the following dose reduction techniques: automated exposure control, adjustme nt of the mA and/or kV according to patient size, and/or use of iterative reconstruction technique. COMPARISON: CT abdomen pelvis November 06, 2020. FINDINGS: CHEST: Lungs: Bilateral lower lobe atelectasis. Pleural space: Small left pleural effusion. No pneumothorax. Heart: Unremarkable. No cardiomegaly. No significant pericardial effusion. ABDOMEN: Liver: Enlarged fatty liver. Gallbladder and bile ducts: Unremarkable. No calcified stones. No ductal dilation. Pancreas: Pancreatic edema again noted with peripancreatic fluid extending into the paracolic gut ters, increased. No pancreatic duct dilatation. Spleen: Unremarkable. No splenomegaly. Adrenals: Unremarkable. No mass. Kidneys and ureters: Unremarkable. No hydronephrosis. No solid mass. Stomach and bowel: Previous gastric surgery No bowel obstruction. Gas in the transverse colon. No mucosal thickening. PELVIS: Appendix: The visualized appendix is normal. No pericecal inflammation to suggest acute appendici tis. Bladder: Unremarkable. No mass. Reproductive: Unremarkable as visualized. CHEST, ABDOMEN and PELVIS: Intraperitoneal space: Fluid and pelvis. No free air or groundglass. Bones/joints: L5-S1 degenerative disc disease. Multilevel vertebral osteophytes in the lower thor acic spine. No acute fracture. No dislocation. Soft tissues: Unremarkable. Vasculature: Unremarkable. No aortic aneurysm. Lymph nodes: Unremarkable. No enlarged lymph nodes. Tubes, lines and devices: ET tube is 2.5 cm above the [place]. NG tube is in the proximal stomach. Bello catheter in the bladder. IMPRESSION: 1. Acute pancreatitis again noted with increased ascites. 2. Enlarged fatty liver. 3. Bilateral lower lobe atelectasis with small left pleural effusion, new. 4. Support tubes as above. 5. Additional non-emergent findings as above. Electronically signed by: Judie Leary MD 11/08/2020 6:53 AM CDT Due to temporary technical issues with the PACS/Fluency reporting system, reports are being signed by the in house radiologists without review as a courtesy to insure prompt reporting. The interpreting radiologist is fully responsible for the content of the report.
--- NOTE | 2020-11-08 10:16 | RAD REPORT ---
EXAM DESCRIPTION: RAD - Chest Single View - 11/08/2020 5:24 am CLINICAL HISTORY: The patient is 39 years old and is Male; fever, intubation TECHNIQUE: Single view of the chest. COMPARISON: No relevant prior studies available. FINDINGS: Lungs: Bibasilar infiltrates and/or atelectasis, greater on the left. Expiratory film ve rsus low lung volumes. Pleural space: Unremarkable. No pneumothorax. Heart: The cardiac silhouette is enlarged versus artifact of AP technique. Mediastinum: Unremarkable. Bones/joints: No acute fracture visualized. Tubes, lines and devices: ET tube is 3 cm above the [place]. NG tube is in the stomach. Upper abdomen: No free air in the visualized upper abdomen. IMPRESSION: 1. ET tube is 3 cm above the [place]. NG tube is in the stomach. 2. Bibasilar infiltrates and/or atelectasis, greater on the left. Expiratory film versus low lung v olumes. Electronically signed by: Judie Leary MD 11/08/2020 5:36 AM CDT Due to temporary technical issues with the PACS/Fluency reporting system, reports are being signed by the in house radiologists without review as a courtesy to insure prompt reporting. The interpreting radiologist is fully responsible for the content of the report.
[2020-11-08] MEDS ORDERED: FENTANYL/NS PCA 500 MCG/50 ML SYR IV ONE ×2 (11:00→20:56)
[2020-11-08] MEDS: FENTANYL/NS PCA 500 MCG/50 ML SYR IV SCH ×2 (11:15→22:02)
[2020-11-08] MEDS ORDERED: ACETAMINOPHEN 160 MG/5 ML UCUP PO ONE (11:17)
[2020-11-08] MEDS ORDERED: dexAMETHasone 10 MG/ML VIAL ONE (12:15)
--- NOTE | 2020-11-08 13:21 | P.PN ---
Subjective Date of Service: 11/08/20 Chief Complaint: Pancreatitis respiratory failure No change patient is still requiring a lot of IV sedation is son on IV Versed said and a propofol drip febrile very agitated Review of Systems is unable to be obtained Physical Examination - Vital Signs Temperature: 100.1 F Blood Pressure: 124/79 Pulse: 132 Respirations: 25 Pulse Ox (%): 97 - Physical Exam General: Moderate distress, Unresponsive Neck: Supple Respiratory: Clear to auscultation bilaterally Cardiovascular: No edema, Normal S1 S2 Assessment & Plan - Problems (Diagnosis) (1) Respiratory failure Current Visit: Yes Status: Acute Plan: Patient has respiratory failure and pancreatitis in addition to fever labs reviewed white count is a little elevated cultures are pending patient has pancreatitis on CT scan that was done today patient was started on Levaquin and Zosyn in addition to steroids patient will be weaned off propofol leave on Versed said drip/doubt pneumonia patient is on assist-control ventilation with FiO2 of 35% patient is probably in DTs for possible cause of fever Qualifiers: Chronicity: acute
[2020-11-08] MEDS: ACETAMINOPHEN 160 MG/5 ML UCUP PO PRN (16:41)
[2020-11-08] MEDS: PIPER/TAZO/NS 3.375gm 3.375 GM/100 ML BAG IVPB SCH (17:00)
[2020-11-08] MEDS: HALOPERIDOL LACT 5 MG/ML INJ IV PRN (17:09)
[2020-11-08] MEDS ORDERED: HALOPERIDOL LACT 5 MG/ML INJ ONE (17:21)
[2020-11-08] MEDS ORDERED: HYDROCORTISONE SUC 100 MG INJ IV SCH (18:00)
[2020-11-08] MEDS ORDERED: NA CHLORIDE 0.9% 500 ML IV ONE (19:24)
[2020-11-08 20:37] LABS: BUN Blood Urea Nitrogen 10 mg/dL (7-18); Bicarbonate 24 mmol/L (21-32); Glucose Level 108 mg/dL (74-106); Potassium 3.7 mmol/L (3.5-5.1); Sodium Level 143 mmol/L (136-145)
[2020-11-08] MEDS ORDERED: NA CHLORIDE 0.9% 500 ML ONE (20:38)
[2020-11-08] MEDS ORDERED: FENTANYL/NS PCA 500 MCG/50 ML SYR IV SCH (21:00)
[2020-11-09] MEDS ORDERED: ACETAMINOPHEN 160 MG/5 ML UCUP ONE ×2 (00:01→09:30)
[2020-11-09] MEDS ORDERED: NA CHLORIDE 0.9% 1,000 ML ONE ×4 (00:01→20:49)
[2020-11-09] MEDS: PIPER/TAZO/NS 3.375gm 3.375 GM/100 ML BAG IVPB SCH ×3 (00:37→17:34)
[2020-11-09] MEDS ORDERED: METOPROLOL TARTRATE 5 MG/5 ML INJ IV ONE ×2 (01:53→05:58)
[2020-11-09] MEDS: METOPROLOL TARTRATE 5 MG/5 ML INJ IV PRN ×2 (02:05→06:22)
[2020-11-09] MEDS ORDERED: propofoL 1,000 MG/100 ML VIAL IV ONE ×7 (02:05→23:39)
[2020-11-09] MEDS: propofoL 1,000 MG/100 ML VIAL IV PRN ×5 (02:05→23:24)
[2020-11-09] MEDS: MIDAZOLAM HCL 100 MG in NA CHLORIDE 0.9% 80 ML IV PRN ×2 (02:22→21:19)
[2020-11-09] MEDS ORDERED: KETOROLAC 30 MG/ML INJ IV ONE (04:25)
[2020-11-09] MEDS ORDERED: KETOROLAC 30 MG/ML INJ ONE (04:41)
[2020-11-09] MEDS: levETIRAcetam 500 MG in NA CHLORIDE 0.9% 100 ML IV SCH ×2 (05:16→17:34)
[2020-11-09 05:17] LABS: ALT/SGPT 33 U/L (12-78); AST/SGOT 33 U/L (15-37); Albumin 2.1 g/dL (3.4-5.0); Alkaline Phosphatase 77 U/L (45-117); BUN Blood Urea Nitrogen 11 mg/dL (7-18); Bicarbonate 24 mmol/L (21-32); Bilirubin Total 0.7 mg/dL (0.2-1.0); Glucose Level 89 mg/dL (74-106); Lipase 308 U/L (73-393); Phosphorus 2.3 mg/dL (2.5-4.9); Potassium 3.9 mmol/L (3.5-5.1); Sodium Level 144 mmol/L (136-145)
[2020-11-09] MEDS: ENOXAPARIN 40 MG/0.4 ML SQ SCH (08:19)
[2020-11-09] MEDS: Levofloxacin 750mg IV 750 MG/150 ML BAG IV SCH (08:19)
[2020-11-09] MEDS: FOLIC ACID 1 MG TABLET PO SCH (08:19)
[2020-11-09] MEDS: THIAMINE 200 MG/2 ML INJ IVP SCH ×2 (08:19→21:27)
[2020-11-09] MEDS: FAMOTIDINE 20 MG/2 ML VIAL IV SCH ×2 (08:19→20:37)
[2020-11-09] MEDS ORDERED: THIAMINE 200 MG/2 ML INJ ONE ×2 (08:34→21:42)
[2020-11-09] MEDS ORDERED: Levofloxacin 750mg IV 750 MG/150 ML BAG IV ONE (08:35)
[2020-11-09] MEDS ORDERED: ENOXAPARIN 40 MG/0.4 ML SQ ONE (08:35)
[2020-11-09] MEDS ORDERED: PIPER/TAZO/NS 3.375gm 3.375 GM/100 ML BAG ONE ×3 (08:35→23:41)
[2020-11-09] MEDS ORDERED: FOLIC ACID 1 MG TABLET ONE (08:35)
[2020-11-09] MEDS ORDERED: FAMOTIDINE 20 MG/2 ML VIAL IV ONE ×2 (08:35→20:49)
[2020-11-09] MEDS: ACETAMINOPHEN 160 MG/5 ML UCUP PO PRN ×2 (09:14)
[2020-11-09] MEDS: LORazepam 2 MG/ML VIAL IV PRN ×3 (09:15→23:54)
[2020-11-09] MEDS ORDERED: LORazepam 2 MG/ML VIAL ONE ×2 (09:31→20:49)
[2020-11-09] MEDS: NA CHLORIDE 0.9% 1,000 ML IV SCH ×4 (09:33→21:11)
--- NOTE | 2020-11-09 11:13 | RAD REPORT ---
EXAM DESCRIPTION: CT - Head Brain Wo Cont - 11/08/2020 6:34 am CLINICAL HISTORY: AMS history of tumorcommon no information to know if the tumor is in the head or e lsewhere in the body. Images are resubmitted for interpretation as the original report cannot be retrieved COMPARISON: Head Brain Wo Cont dated 08/13/2020; Head Brain Wo Cont dated 08/12/2020 TECHNIQUE: Axial 5 mm thick images of the head were obtained without IV contrast. All CT scans are performed using dose optimization technique as appropriate and may include automated exposure control or mA/KV adjustment according to patient size. FINDINGS: Endotracheal tube is in place only partially imaged on this study. No intracranial hemorrhage, mass, edema or shift of mid-line structures. No acute infarction changes seen. No abnormal extra-axial fluid collections. Ventricles are normal. Ill-defined hyperdense focus in the right frontal lobe was present on July examination and has not changed. 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 Mastoid air cells and visualized portions of the paranasal sinuses are clear. No acute bony findings. IMPRESSION: No acute intracranial finding.
[2020-11-09] MEDS ORDERED: HYDROCORTISONE SUC 100 MG INJ IV ONE (11:58)
[2020-11-09] MEDS ORDERED: DIPHENHYDRAMINE 50 MG/ML VIAL IV ONE (12:35)
[2020-11-09] MEDS ORDERED: HYDROCORTISONE SUC 100 MG INJ ONE (13:04)
[2020-11-09] MEDS ORDERED: DIPHENHYDRAMINE 50 MG/ML VIAL ONE (13:04)
[2020-11-09] MEDS: FENTANYL/NS PCA 500 MCG/50 ML SYR IV SCH ×2 (13:49→23:25)
[2020-11-09] MEDS ORDERED: FENTANYL/NS PCA 500 MCG/50 ML SYR IV ONE (13:58)
--- NOTE | 2020-11-09 17:22 | P.PN ---
Subjective Date of Service: 11/07/20 Patient remains intubated and sedated. Patient remains febrile. Continue with medication for tachyarrhythmia. Continue IV hydration. Continue anti epileptics. Wean off of sedation over the next 48 hrs Review of Systems is unable to be obtained Physical Examination - Vital Signs Temperature: 102 F Blood Pressure: 117/98 Pulse: 130 Respirations: 21 Pulse Ox (%): 96 - Physical Exam General: Other (Intubated and sedated) HEENT: Atraumatic, Other (Appears diaphoretic) Respiratory: Clear to auscultation bilaterally, Normal air movement Cardiovascular: Regular rate/rhythm, Normal S1 S2, Systolic murmur Gastrointestinal: Normal bowel sounds, Soft and benign, Non-distended Musculoskeletal: No clubbing, Swelling Neurological: Other (Sedated and intubated) Assessment & Plan - Problems (Diagnosis) (1) Delirium tremens Current Visit: Yes Status: Acute (2) Fever Current Visit: Yes Status: Acute (3) Tachyarrhythmia Current Visit: Yes Status: Acute (4) Respiratory failure Current Visit: Yes Status: Acute Qualifiers: Chronicity: acute (5) Alcohol abuse Current Visit: No Status: Acute (6) Hypertension Current Visit: No Status: Acute Qualifiers: Hypertension type: essential hypertension Qualified Code(s): I10 - Essential (primary) hypertension (7) Seizure Current Visit: No Status: Acute - Plan Plan: 1. Continue anti epileptics 2. Continue with IV sedation 3. Pain control 4. Antipyretics 5. IV antibiotics 6. Vent support 7. Neurology and Pulmonary consultation 8. Spoke with GI and if pancreatitis is not improving Consult gastroenterology 9. GI and DVT prophylaxis Discharge Plan: Home Plan to discharge in: Greater than 2 days - Advance Directives Does patient have a Living Will: No Does patient have a Durable POA for Healthcare: No - Code Status/Comfort Care Code Status Assessed: Yes Code Status: Full Code Critical Care: Yes Time Spent Managing PTS Care (In Minutes): 45
--- NOTE | 2020-11-09 17:24 | P.PN ---
Date of Service: 11/08/20 Subjective Patient remains intubated and sedated. Patient remains febrile. Continue with medication for tachyarrhythmia. Continue IV hydration. Continue anti epileptics. Wean off of sedation over the next 48 hrs Review of Systems is unable to be obtained Physical Examination - Vital Signs Reviewed - Physical Exam General: Other (Intubated and sedated) HEENT: ET tube in place; NG tube in place Respiratory: Clear to auscultation bilaterally, Normal air movement Cardiovascular: Regular rate/rhythm, Normal S1 S2, Systolic murmur Gastrointestinal: Normal bowel sounds, Soft and benign, Non-distended Musculoskeletal: No clubbing, Swelling Neurological: Other (Sedated and intubated) Assessment & Plan - Problems (Diagnosis) (1) Delirium tremens Current Visit: Yes Status: Acute (2) Fever Current Visit: Yes Status: Acute (3) Tachyarrhythmia Current Visit: Yes Status: Acute (4) Respiratory failure Current Visit: Yes Status: Acute Qualifiers: Chronicity: acute (5) Alcohol abuse Current Visit: No Status: Acute (6) Hypertension Current Visit: No Status: Acute Qualifiers: Hypertension type: essential hypertension Qualified Code(s): I10 - Essential (primary) hypertension (7) Seizure Current Visit: No Status: Acute - Plan Plan: Continue with plan of care as mentioned below 1. Continue anti epileptics 2. Continue with IV sedation; wean off of purple fall. Continue Versed 3. Pain control; started fentanyl drip 4. Antipyretics 5. IV antibiotics 6. Vent support 7. Appreciate Pulmonary consultation 8. GI and DVT prophylaxis Discharge Plan: Home Plan to discharge in: Greater than 2 days - Advance Directives Does patient have a Living Will: No Does patient have a Durable POA for Healthcare: No - Code Status/Comfort Care Code Status Assessed: Yes Code Status: Full Code Critical Care: Yes Time Spent Managing PTS Care (In Minutes): 45
--- NOTE | 2020-11-09 17:26 | P.PN ---
Date of Service: 11/09/20 Subjective Fever is resolving. Patient has started on TPN. Clinical symptoms continue to improve. Review of Systems is unable to be obtained Physical Examination - Vital Signs Reviewed - Physical Exam General: Other (Intubated and sedated) HEENT: ET tube in place; NG tube in place Respiratory: Clear to auscultation bilaterally, Normal air movement Cardiovascular: Regular rate/rhythm, Normal S1 S2, Systolic murmur Gastrointestinal: Normal bowel sounds, Soft and benign, Non-distended Musculoskeletal: No clubbing, Swelling Neurological: Other (Sedated and intubated) Assessment & Plan - Problems (Diagnosis) (1) Delirium tremens Current Visit: Yes Status: Acute (2) Fever Current Visit: Yes Status: Acute (3) Tachyarrhythmia Current Visit: Yes Status: Acute (4) Respiratory failure Current Visit: Yes Status: Acute Qualifiers: Chronicity: acute (5) Alcohol abuse Current Visit: No Status: Acute (6) Hypertension Current Visit: No Status: Acute Qualifiers: Hypertension type: essential hypertension Qualified Code(s): I10 - Essential (primary) hypertension (7) Seizure Current Visit: No Status: Acute - Plan Plan: Continue with plan of care as mentioned below 1. Continue anti epileptics; EEG pending 2. Continue with IV sedation; wean off of Propofol. Continue Versed 3. Pain control; started fentanyl drip 4. Antipyretics; given IV hydrocortisone 5. Continue with IV antibiotics 6. Vent support 7. Appreciate Pulmonary consultation 8. GI and DVT prophylaxis Discharge Plan: Home Plan to discharge in: Greater than 2 days - Advance Directives Does patient have a Living Will: No Does patient have a Durable POA for Healthcare: No - Code Status/Comfort Care Code Status Assessed: Yes Code Status: Full Code Critical Care: Yes Time Spent Managing PTS Care (In Minutes): 45
[2020-11-09] MEDS ORDERED: NA CHLORIDE 0.9% 250 ML ONE (20:49)
[2020-11-09] MEDS: HYDRALAZINE HCL 20 MG/ML VIAL IV PRN (22:51)
[2020-11-09] MEDS ORDERED: HYDRALAZINE HCL 20 MG/ML VIAL ONE (23:08)
[2020-11-10] MEDS ORDERED: LORazepam 2 MG/ML VIAL ONE ×4 (00:11→23:26)
[2020-11-10] MEDS: D50W 25 GM/50 ML SYRINGE IV PRN ×2 (00:11→01:01)
[2020-11-10] MEDS: PIPER/TAZO/NS 3.375gm 3.375 GM/100 ML BAG IVPB SCH ×2 (00:24→08:16)
[2020-11-10] MEDS ORDERED: D50W 25 GM/50 ML SYRINGE IV ONE ×2 (00:28→17:40)
[2020-11-10] MEDS: ACETAMINOPHEN 160 MG/5 ML UCUP PO PRN ×3 (01:44→19:39)
[2020-11-10] MEDS: METOPROLOL TARTRATE 5 MG/5 ML INJ IV PRN ×2 (01:45→16:00)
[2020-11-10] MEDS ORDERED: ACETAMINOPHEN 160 MG/5 ML UCUP ONE ×3 (01:59→19:56)
[2020-11-10] MEDS ORDERED: METOPROLOL TARTRATE 5 MG/5 ML INJ IV ONE ×2 (02:00→16:18)
[2020-11-10] MEDS: propofoL 1,000 MG/100 ML VIAL IV PRN ×3 (02:23→08:30)
[2020-11-10] MEDS ORDERED: propofoL 1,000 MG/100 ML VIAL IV ONE ×3 (02:40→08:48)
[2020-11-10] MEDS: MIDAZOLAM HCL 100 MG in NA CHLORIDE 0.9% 80 ML IV PRN ×4 (05:05→22:51)
[2020-11-10] MEDS: NA CHLORIDE 0.9% 1,000 ML IV SCH (05:05)
[2020-11-10] MEDS ORDERED: NA CHLORIDE 0.9% 1,000 ML ONE ×2 (05:13→07:42)
[2020-11-10] MEDS: levETIRAcetam 500 MG in NA CHLORIDE 0.9% 100 ML IV SCH ×2 (05:24→17:52)
[2020-11-10 05:48] LABS: Absolute Lymphocytes (CBC) 1.1 K/uL (0.7-4.9); Basophils % 0.1 % (0-1.3); Hematocrit 33.6 % (39.6-49.0); MPV 8.5 fL (7.6-11.3); RBC Red Blood Cell Count 3.64 M/uL (4.33-5.43)
[2020-11-10 06:54] LABS: ALT/SGPT 28 U/L (12-78); AST/SGOT 37 U/L (15-37); Albumin 1.9 g/dL (3.4-5.0); Alkaline Phosphatase 78 U/L (45-117); BUN Blood Urea Nitrogen 8 mg/dL (7-18); Bicarbonate 24 mmol/L (21-32); Bilirubin Total 0.5 mg/dL (0.2-1.0); Folic Acid, (Folate) > 20.0 ng/mL (3.1-17.5); Glucose Level 99 mg/dL (74-106); Magnesium 2.1 mg/dL (1.8-2.4); NT PRO-BNP 101 pg/mL (<125); Phosphorus 2.3 mg/dL (2.5-4.9); Potassium 3.4 mmol/L (3.5-5.1); Sodium Level 143 mmol/L (136-145)
[2020-11-10] MEDS ORDERED: FOLIC ACID 1 MG TABLET ONE (07:41)
[2020-11-10] MEDS ORDERED: THIAMINE 200 MG/2 ML INJ ONE ×2 (07:41→22:16)
[2020-11-10] MEDS ORDERED: FAMOTIDINE 20 MG/2 ML VIAL IV ONE ×2 (07:42→22:17)
[2020-11-10] MEDS ORDERED: ENOXAPARIN 40 MG/0.4 ML SQ ONE (07:42)
[2020-11-10] MEDS ORDERED: PIPER/TAZO/NS 3.375gm 3.375 GM/100 ML BAG ONE (07:42)
[2020-11-10] MEDS ORDERED: Levofloxacin 750mg IV 750 MG/150 ML BAG IV ONE (07:42)
[2020-11-10] MEDS: THIAMINE 200 MG/2 ML INJ IVP SCH ×2 (08:16→21:59)
[2020-11-10] MEDS: Levofloxacin 750mg IV 750 MG/150 ML BAG IV SCH (08:16)
[2020-11-10] MEDS: FOLIC ACID 1 MG TABLET PO SCH (08:16)
[2020-11-10] MEDS: ENOXAPARIN 40 MG/0.4 ML SQ SCH (08:16)
[2020-11-10] MEDS: FAMOTIDINE 20 MG/2 ML VIAL IV SCH ×2 (08:16→21:59)
--- NOTE | 2020-11-10 08:43 | RAD REPORT ---
EXAM DESCRIPTION: RAD - Chest Single View - 11/10/2020 8:36 am CLINICAL HISTORY: ETT/ source infection COMPARISON: November 08 TECHNIQUE: AP portable chest image was obtained 11/10/2020 8:36 am . FINDINGS: Lung volumes are very low. Endotracheal tube tip is 4 cm above the [place]. NG tube/OG tube extends below the diaphragm off the field of view. Lung parenchymal assessment is limited. There is increased opacification in the left lung field. Mini mal right upper lobe opacification present as well. Some of this is atelectasis affects. Infiltrates are suspected. Heart and vasculature are normal. No measurable pleural effusion and no pneumothorax. No acute bony abnormality seen. No acute aortic findings suspected. IMPRESSION: Suspected new pneumonia changes in the left midlung field and minimally in the perihilar right upper lobe. ET tube is 4 cm above the [place].
--- NOTE | 2020-11-10 08:54 | P.PN ---
Subjective Date of Service: 11/10/20 Chief Complaint: Pancreatitis respiratory failure Patient continues to remain agitated and febrile on a ventilator Review of Systems is unable to be obtained Physical Examination - Vital Signs Temperature: 101.9 F Blood Pressure: 170/77 Pulse: 119 Respirations: 29 Pulse Ox (%): 100 Assessment & Plan - Problems (Diagnosis) (1) Respiratory failure Current Visit: Yes Status: Acute Plan: Respiratory failure pancreatitis will recheck lipase amylase patient now has central line in the groin start patient on TPN having some fever Dc Zosyn possible side effect continue with levofloxacin white count is improving chest x-ray endotracheal tube in satisfactory position he does have some haziness on the left side possible pleural effusion from his pancreatitis lipase animal is improving Qualifiers: Chronicity: acute
[2020-11-10] MEDS ORDERED: THIAMINE 200 MG/2 ML INJ IVP SCH (09:00)
[2020-11-10] MEDS ORDERED: HYDROCORTISONE SUC 100 MG INJ IV ONE (09:14)
[2020-11-10] MEDS ORDERED: DIPHENHYDRAMINE 50 MG/ML VIAL IV ONE (09:54)
[2020-11-10] MEDS ORDERED: DIPHENHYDRAMINE 50 MG/ML VIAL ONE (10:19)
[2020-11-10] MEDS ORDERED: HYDROCORTISONE SUC 100 MG INJ ONE (10:19)
[2020-11-10 13:34] LABS: C.diff Antigen/Toxin Ag neg : Tox neg (NEG : NEG)
[2020-11-10] MEDS ORDERED: FUROSEMIDE 40 MG/4 ML VIAL IV ONE (13:51)
[2020-11-10] MEDS ORDERED: FUROSEMIDE 40 MG/4 ML VIAL ONE (14:30)
[2020-11-10] MEDS ORDERED: POTASSIUM PHOS IN 0.9 % NACL 15 MMOL/250 ML BAG IV ONE (14:45)
[2020-11-10] MEDS: FENTANYL/NS PCA 500 MCG/50 ML SYR IV SCH (14:45)
[2020-11-10] MEDS: LORazepam 2 MG/ML VIAL IV PRN ×3 (15:24→23:09)
[2020-11-10] MEDS: POTASSIUM PHOS IN 0.9 % NACL 15 MMOL/250 ML BAG IV ONE (16:36)
[2020-11-10] MEDS: HYDRALAZINE HCL 20 MG/ML VIAL IV PRN (16:36)
[2020-11-10] MEDS ORDERED: HYDRALAZINE HCL 20 MG/ML VIAL ONE (16:51)
[2020-11-10] MEDS ORDERED: HYDROMORPHONE HCL 1 MG/ML INJ ONE ×2 (16:51→19:57)
[2020-11-10] MEDS: HYDROMORPHONE HCL 1 MG/ML INJ IV PRN ×2 (17:00→23:46)
[2020-11-10] MEDS: AA 5%/D20W/ELECTROLYTES-TPN 2,000 ML, Lipids 20% 250 ML with MULTIVITAMINS INJ 10 ML IV SCH ×3 (18:03)
[2020-11-10] MEDS ORDERED: FENTANYL/NS PCA 500 MCG/50 ML SYR IV ONE (18:32)
[2020-11-10] MEDS ORDERED: dexAMETHasone 10 MG/ML VIAL IV PRN (19:00)
[2020-11-11] MEDS: LORazepam 2 MG/ML VIAL IV PRN ×6 (03:36→19:53)
[2020-11-11] MEDS: ACETAMINOPHEN 160 MG/5 ML UCUP PO PRN ×2 (03:36→10:49)
[2020-11-11] MEDS: ONDANSETRON 4 MG/2 ML VIAL IV PRN (03:36)
[2020-11-11] MEDS ORDERED: LORazepam 2 MG/ML VIAL ONE ×6 (03:53→20:09)
[2020-11-11] MEDS ORDERED: ACETAMINOPHEN 160 MG/5 ML UCUP ONE ×2 (03:53→10:30)
[2020-11-11] MEDS ORDERED: ONDANSETRON 4 MG/2 ML VIAL ONE (03:53)
[2020-11-11] MEDS: HYDROMORPHONE HCL 1 MG/ML INJ IV PRN ×3 (04:58→19:53)
[2020-11-11] MEDS: FENTANYL/NS PCA 500 MCG/50 ML SYR IV SCH (05:06)
[2020-11-11] MEDS ORDERED: HYDROMORPHONE HCL 1 MG/ML INJ ONE ×2 (05:16→20:10)
[2020-11-11] MEDS ORDERED: FENTANYL/NS PCA 500 MCG/50 ML SYR IV ONE (05:24)
[2020-11-11 05:25] LABS: Absolute Lymphocytes (CBC) 0.6 K/uL (0.7-4.9); Basophils % 0.1 % (0-1.3); Hematocrit 31.4 % (39.6-49.0); Lymphocytes % 5.9 % (15.3-44.8); MPV 8.6 fL (7.6-11.3); RBC Red Blood Cell Count 3.44 M/uL (4.33-5.43)
[2020-11-11] MEDS: levETIRAcetam 500 MG in NA CHLORIDE 0.9% 100 ML IV SCH (06:05)
[2020-11-11 07:34] LABS: ALT/SGPT 28 U/L (12-78); AST/SGOT 37 U/L (15-37); Albumin 1.9 g/dL (3.4-5.0); Alkaline Phosphatase 80 U/L (45-117); BUN Blood Urea Nitrogen 9 mg/dL (7-18); Bicarbonate 28 mmol/L (21-32); Bilirubin Total 0.5 mg/dL (0.2-1.0); Glucose Level 144 mg/dL (74-106); Magnesium 2.1 mg/dL (1.8-2.4); Phosphorus 2.3 mg/dL (2.5-4.9); Potassium 3.1 mmol/L (3.5-5.1); Protein, Total 6.1 g/dL (6.4-8.2); Sodium Level 145 mmol/L (136-145)
[2020-11-11] MEDS ORDERED: HYDROMORPHONE HCL 2 MG/ML inj ONE (07:51)
[2020-11-11] MEDS ORDERED: THIAMINE 200 MG/2 ML INJ ONE (08:15)
[2020-11-11] MEDS ORDERED: Levofloxacin 750mg IV 750 MG/150 ML BAG IV ONE (08:16)
[2020-11-11] MEDS ORDERED: ENOXAPARIN 40 MG/0.4 ML SQ ONE (08:16)
[2020-11-11] MEDS ORDERED: FOLIC ACID 1 MG TABLET ONE (08:16)
[2020-11-11] MEDS ORDERED: FAMOTIDINE 20 MG/2 ML VIAL IV ONE (08:17)
--- NOTE | 2020-11-11 08:35 | P.PN ---
Date of Service: 11/10/20 Subjective Patient is doing much better. Clinical symptoms are much better. Plan of care at this timeContinue monitoring and neuro status closely. Slowly improving Review of Systems is unable to be obtained Physical Examination - Vital Signs Reviewed - Physical Exam General: Other (Intubated and sedated-following commands) HEENT: ET tube in place; NG tube in place Respiratory: Clear to auscultation bilaterally, Normal air movement Cardiovascular: Regular rate/rhythm, Normal S1 S2, Systolic murmur Gastrointestinal: Normal bowel sounds, Soft and benign, Non-distended Musculoskeletal: No clubbing, Swelling Neurological: Other (Sedated and intubated; moving toes and squeezing hands and blinking on command) Assessment & Plan - Problems (Diagnosis) (1) Delirium tremens Current Visit: Yes Status: Acute (2) Fever Current Visit: Yes Status: Acute (3) Tachyarrhythmia Current Visit: Yes Status: Acute (4) Respiratory failure Current Visit: Yes Status: Acute Qualifiers: Chronicity: acute (5) Alcohol abuse Current Visit: No Status: Acute (6) Hypertension Current Visit: No Status: Acute Qualifiers: Hypertension type: essential hypertension Qualified Code(s): I10 - Essential (primary) hypertension (7) Seizure Current Visit: No Status: Acute - Plan Plan: Continue with plan of care as mentioned below 1. Continue anti epileptics; EEG pending 2. Continue with IV sedation; wean off of Propofol. Continue Versed 3. Pain control; started fentanyl drip 4. Antipyretics; given IV hydrocortisone & benadryl(? NMS or malignanat hyperthermia; but now CXR with progressive pneumonia) 5. Continue with IV antibiotics-zosyn and levquin; anaerobic coverage 6. Vent support 7. Appreciate Pulmonary consultation 8. GI and DVT prophylaxis Discharge Plan: Home Plan to discharge in: Greater than 2 days - Advance Directives Does patient have a Living Will: No Does patient have a Durable POA for Healthcare: No - Code Status/Comfort Care Code Status Assessed: Yes Code Status: Full Code Critical Care: Yes Time Spent Managing PTS Care (In Minutes): 45
[2020-11-11] MEDS: THIAMINE 200 MG/2 ML INJ IVP SCH ×2 (09:00→22:00)
[2020-11-11] MEDS: ENOXAPARIN 40 MG/0.4 ML SQ SCH (09:00)
[2020-11-11] MEDS: METOPROLOL TARTRATE 5 MG/5 ML INJ IV PRN (09:21)
[2020-11-11] MEDS ORDERED: HYDRALAZINE HCL 20 MG/ML VIAL ONE (09:29)
[2020-11-11] MEDS ORDERED: METOPROLOL TARTRATE 5 MG/5 ML INJ IV ONE (09:29)
[2020-11-11] MEDS: HYDRALAZINE HCL 20 MG/ML VIAL IV PRN (09:36)
[2020-11-11] MEDS: FAMOTIDINE 20 MG/2 ML VIAL IV SCH ×2 (09:38→22:00)
[2020-11-11] MEDS: Levofloxacin 750mg IV 750 MG/150 ML BAG IV SCH (09:39)
[2020-11-11] MEDS: FOLIC ACID 1 MG TABLET PO SCH (09:39)
--- NOTE | 2020-11-11 09:58 | EEG ---
CHART: [id number] TEST ID#: [id number] DATE OF STUDY: 11/09/2020 THE EEG WAS RECORDED PORTABLE IN THE ER/ICU ON A 17 CHANNEL MACHINE. ELECTRODES WERE APPLIED IN THE USUAL MANNER USING THE INTERNATIONAL 10-20 SYSTEM. THE EEG IS LARGELY OBSCURED BY MOVEMENT AND EMG ARTIFACT. DURING BRIEF INTERPRETABLE PERIODS, THE POSTERIOR DOMINANT RHYTHM IS 6 HZ. LOW-VOLTAGE 18-22 HZ ACTIVITY IS EXPRESSED IN THE FRONAL REGIONS. THERE ARE NO FOCAL OR LATERALIZING FEATURES. NO EPILEPTIFORM ACTIVITY APPEARS. SLEEP DID NOT OCCUR. HYPERVENTILATION WAS NOT PERFORMED. PHOTIC STIMULATION WAS NOT PERFORMED. IMPRESSION: NORMAL EEG FOR THE AGE OF THE PATIENT IN [place].
[2020-11-11] MEDS ORDERED: PROMETHAZINE INJ 25 MG/ML AMP ONE (10:03)
[2020-11-11] MEDS ORDERED: ACETAMINOPHEN 500 MG TAB ONE (10:28)
[2020-11-11] MEDS ORDERED: ACETAMINOPHEN 325 MG TABLET ONE (10:28)
[2020-11-11] MEDS: MIDAZOLAM HCL 100 MG in NA CHLORIDE 0.9% 80 ML IV PRN (10:47)
[2020-11-11] MEDS: propofoL 1,000 MG/100 ML VIAL IV PRN ×2 (12:45→18:41)
[2020-11-11] MEDS ORDERED: propofoL 1,000 MG/100 ML VIAL IV ONE ×2 (13:14→18:27)
--- NOTE | 2020-11-11 13:33 | P.PN ---
Subjective Date of Service: 11/11/20 Chief Complaint: Pancreatitis respiratory failure Patient agitated and febrile on ventilator. No source of sepsis. CXRY Left opacification Review of Systems Unremarkable Physical Examination - Vital Signs Temperature: 101.7 F Blood Pressure: 140/95 Pulse: 119 Respirations: 21 Pulse Ox (%): 97 - Physical Exam General: Unresponsive Respiratory: Diminished (Left side) Cardiovascular: No edema, Regular rate/rhythm Gastrointestinal: Normal bowel sounds, Soft and benign, Non-distended Assessment & Plan - Problems (Diagnosis) (1) Respiratory failure Current Visit: Yes Status: Acute Plan: Resp failure and febrile. Cultures are pending. Started on Merem. Repeat CT of chest of abdomen and pelvisWBC is azra .Lipase is declining. On TPN VS stable. Vent settings reviewd. On 30% FIO2 Qualifiers: Chronicity: acute
[2020-11-11 14:59] LABS: Urine Appearance CLEAR (Clear); Urine Bilirubin NEGATIVE (Negative); Urine Blood NEGATIVE (Negative); Urine Color YELLOW (Yellow); Urine Glucose NEGATIVE (Negative); Urine Protein 1+ (Negative); Urine Specific Gravity 1.025 (1.005-1.030)
[2020-11-11 15:33] LABS: Urine Bacteria <20 /HPF (NONE SEEN); Urine RBC NONE SEEN /HPF (NONE SEEN)
[2020-11-11] MEDS ORDERED: POTASSIUM PHOS IN 0.9 % NACL 15 MMOL/250 ML BAG IV ONE ×2 (16:06→17:00)
[2020-11-11] MEDS: Meropenem 1,000 MG in NA CHLORIDE 0.9% 100 ML IV SCH (17:00)
[2020-11-11] MEDS ORDERED: Meropenem 1000 MG/VIAL IV SCH (17:00)
[2020-11-11] MEDS: POTASSIUM PHOS 30 MM in NS 500 ML IV ONE ×2 (17:00→17:38)
[2020-11-11] MEDS ORDERED: KCL 20 MEQ/100 mL IVPB 20 MEQ/100 ML BAG IV SCH (17:00)
[2020-11-11] MEDS: AA 5%/D20W/ELECTROLYTES-TPN 2,000 ML, Lipids 20% 250 ML with MULTIVITAMINS INJ 10 ML IV SCH ×3 (17:47)
[2020-11-11] MEDS ORDERED: KETOROLAC 30 MG/ML INJ ONE (18:54)
[2020-11-11] MEDS ORDERED: KETOROLAC 30 MG/ML INJ IV ONE (19:00)
[2020-11-11] MEDS ORDERED: FUROSEMIDE 20 MG/ 2ML VIAL IV ONE (19:00)
[2020-11-11] MEDS ORDERED: GLUCAGON 1 MG/VIAL ONE (20:18)
[2020-11-11] MEDS: D50W 25 GM/50 ML SYRINGE IV PRN ×2 (20:19→21:00)
[2020-11-11] MEDS ORDERED: D50W 25 GM/50 ML SYRINGE IV ONE (20:21)
--- NOTE | 2020-11-11 20:44 | RAD REPORT ---
EXAM DESCRIPTION: CT - Head Brain W/Wo Con - 11/11/2020 8:27 pm CLINICAL HISTORY: conjugate left eye deviation r/o brain lesion Headache, drowsiness COMPARISON: Head Brain Wo Cont dated 11/08/2020; Head Brain Wo Cont dated 08/13/2020; Head Brain Wo Co nt dated 08/12/2020; Brain W/Wo Cont dated 02/11/2019 TECHNIQUE: All CT scans are performed using dose optimization technique as appropriate and may inclu de automated exposure control or mA/KV adjustment according to patient size. FINDINGS: No intracranial hemorrhage, hydrocephalus or extra-axial fluid collection.Small 8 mm area of increased density in the right frontal lobe demonstrates no significant change since comparative s tudi. Previous MR imaging from 02/11/2029 demonstrates small cavernoma in this location.No areas of brain edema or evidence of midline shift. The paranasal sinuses and mastoids are clear. The calvarium is intact. No pathologic post-contrast enhancement is seen. IMPRESSION: No acute or aggressive intracranial abnormality.
--- NOTE | 2020-11-11 20:49 | RAD REPORT ---
EXAM DESCRIPTION: CTAbdomen Pelvis W Contrast - 11/11/2020 8:27 pm CLINICAL HISTORY: Abdominal pain. fever;pancreatitis COMPARISON: Abdomen Pelvis W Contrast dated 11/06/2020 TECHNIQUE: Biphasic CT imaging of the abdomen and pelvis was performed with 100 ml non-ionic IV cont rast. All CT scans are performed using dose optimization technique as appropriate and may include automated exposure control or mA/KV adjustment according to patient size. FINDINGS: Atelectasis is present in both lung bases with small pleural effusions.Postsurgical change s about the stomach noted. The liver, spleen, adrenal glands and kidneys are within normal limits. There is significant inflamma tion seen around the pancreas. No portal vein thrombus seen. No pseudocyst seen. Mild free fluid is seen in the abdomen and pelvis. No bowel obstruction or free air. The appendix is normal. No evidence of significant lymphadenopathy. No suspicious bony findings. IMPRESSION: There is significant inflammation surrounding the pancreas compatible with acute pancrea titis. No pseudocyst or portal vein thrombus identified.
[2020-11-12] MEDS: propofoL 1,000 MG/100 ML VIAL IV PRN ×4 (00:03→21:07)
[2020-11-12] MEDS ORDERED: FAMOTIDINE 20 MG/2 ML VIAL IV ONE ×3 (00:13→20:12)
[2020-11-12] MEDS ORDERED: THIAMINE 200 MG/2 ML INJ ONE ×3 (00:13→20:11)
[2020-11-12] MEDS ORDERED: Meropenem 0 GM/0 ML BAG ONE (00:17)
[2020-11-12] MEDS ORDERED: propofoL 1,000 MG/100 ML VIAL IV ONE ×4 (00:21→21:25)
[2020-11-12] MEDS: Meropenem 1,000 MG in NA CHLORIDE 0.9% 100 ML IV SCH ×3 (00:24→17:09)
[2020-11-12] MEDS ORDERED: FUROSEMIDE 20 MG/ 2ML VIAL ONE (00:38)
[2020-11-12] MEDS ORDERED: NA CHLORIDE 0.9% 250 ML ONE ×2 (00:46→20:14)
[2020-11-12] MEDS: ACETAMINOPHEN 650MG/RECT SUPP PR PRN ×2 (01:40→20:22)
[2020-11-12] MEDS ORDERED: ACETAMINOPHEN 160 MG/5 ML UCUP ONE (01:56)
[2020-11-12] MEDS ORDERED: ACETAMINOPHEN 650MG/RECT SUPP PR ONE ×2 (01:58→20:12)
[2020-11-12] MEDS: LORazepam 2 MG/ML VIAL IV PRN ×2 (02:36→20:43)
[2020-11-12] MEDS: HYDROMORPHONE HCL 1 MG/ML INJ IV PRN ×2 (02:37→19:58)
[2020-11-12] MEDS ORDERED: HYDROMORPHONE HCL 1 MG/ML INJ ONE ×2 (02:54→20:12)
[2020-11-12] MEDS ORDERED: LORazepam 2 MG/ML VIAL ONE ×2 (02:54→20:11)
[2020-11-12] MEDS: ACETAMINOPHEN 160 MG/5 ML UCUP PO PRN (04:11)
[2020-11-12 05:32] LABS: Absolute Lymphocytes (CBC) 0.8 K/uL (0.7-4.9); Basophils % 0.2 % (0-1.3); Hematocrit 30.3 % (39.6-49.0); Lymphocytes % 7.1 % (15.3-44.8); MPV 8.5 fL (7.6-11.3); RBC Red Blood Cell Count 3.35 M/uL (4.33-5.43)
[2020-11-12] MEDS: levETIRAcetam 500 MG in NA CHLORIDE 0.9% 100 ML IV SCH ×3 (05:39→18:37)
[2020-11-12 06:09] LABS: ALT/SGPT 26 U/L (12-78); AST/SGOT 29 U/L (15-37); Albumin 1.8 g/dL (3.4-5.0); Alkaline Phosphatase 78 U/L (45-117); BUN Blood Urea Nitrogen 9 mg/dL (7-18); Bicarbonate 30 mmol/L (21-32); Bilirubin Total 0.3 mg/dL (0.2-1.0); Glucose Level 152 mg/dL (74-106); Lipase 254 U/L (73-393); Magnesium 2.2 mg/dL (1.8-2.4); NT PRO-BNP 298 pg/mL (<125); Sodium Level 144 mmol/L (136-145)
[2020-11-12 06:16] LABS: Potassium 2.8 mmol/L (3.5-5.1)
[2020-11-12] MEDS: KCL 20 MEQ/100 mL IVPB 20 MEQ/100 ML BAG IV SCH ×5 (07:49→22:08)
[2020-11-12] MEDS ORDERED: DIPHENHYDRAMINE 50 MG/ML VIAL IV ONE ×2 (08:01→21:48)
[2020-11-12] MEDS ORDERED: HYDROCORTISONE SUC 100 MG INJ IV ONE ×2 (08:01→21:48)
[2020-11-12] MEDS ORDERED: KCL 20 MEQ/100 mL IVPB 20 MEQ/100 ML BAG IV ONE ×3 (08:06→14:55)
[2020-11-12] MEDS: FOLIC ACID 1 MG TABLET PO SCH (09:00)
[2020-11-12] MEDS: FAMOTIDINE 20 MG/2 ML VIAL IV SCH ×2 (09:01→20:23)
[2020-11-12] MEDS: ENOXAPARIN 40 MG/0.4 ML SQ SCH (09:01)
[2020-11-12] MEDS: Levofloxacin 750mg IV 750 MG/150 ML BAG IV SCH (09:01)
[2020-11-12] MEDS: THIAMINE 200 MG/2 ML INJ IVP SCH ×2 (09:02→20:22)
[2020-11-12] MEDS ORDERED: ENOXAPARIN 40 MG/0.4 ML SQ ONE (09:16)
[2020-11-12] MEDS ORDERED: DIPHENHYDRAMINE 50 MG/ML VIAL ONE ×2 (09:16→22:15)
[2020-11-12] MEDS ORDERED: HYDROCORTISONE SUC 100 MG INJ ONE ×2 (09:16→22:15)
[2020-11-12] MEDS ORDERED: Levofloxacin 750mg IV 750 MG/150 ML BAG IV ONE (09:17)
--- NOTE | 2020-11-12 11:51 | RAD REPORT ---
EXAM DESCRIPTION: RAD - Chest Single View - 11/12/2020 5:58 am CLINICAL HISTORY: pneumonia Chest pain. COMPARISON: Chest Single View dated 11/10/2020; Chest Single View dated 11/08/2020; Chest Single View dated 11/07/2020; Chest Single View dated 11/07/2020 FINDINGS: Portable technique limits examination quality. Tip of the endotracheal tube is at the level of the aortic arch. Enteric tube descends into the upper abdomen. Bilateral pulmonary opacities appear essentially stable since the comparative study. The he art is mildly enlarged.
[2020-11-12] MEDS: AA 5%/D20W/ELECTROLYTES-TPN 2,000 ML, Lipids 20% 250 ML with MULTIVITAMINS INJ 10 ML IV SCH ×3 (16:12)
[2020-11-12] MEDS ORDERED: KETOROLAC 30 MG/ML INJ IV ONE (16:25)
[2020-11-12] MEDS ORDERED: ONDANSETRON 4 MG/2 ML VIAL ONE (20:12)
[2020-11-12] MEDS ORDERED: KCL 20 MEQ/100 mL IVPB 40 MEQ/200 ML BAG IV ONE (20:14)
[2020-11-12] MEDS ORDERED: NA CHLORIDE 0.9% 500 ML ONE (20:15)
[2020-11-12] MEDS: ONDANSETRON 4 MG/2 ML VIAL IV PRN (20:22)
[2020-11-12 23:37] VITALS: BMI 41.2
[2020-11-13] MEDS: Meropenem 1,000 MG in NA CHLORIDE 0.9% 100 ML IV SCH ×3 (00:18→16:49)
[2020-11-13] MEDS ORDERED: KETOROLAC 30 MG/ML INJ IV ONE ×4 (00:28→21:51)
[2020-11-13] MEDS ORDERED: KETOROLAC 30 MG/ML INJ ONE ×3 (01:01→22:16)
[2020-11-13] MEDS: HYDROMORPHONE HCL 1 MG/ML INJ IV PRN ×3 (04:05→16:18)
[2020-11-13] MEDS ORDERED: HYDROMORPHONE HCL 1 MG/ML INJ ONE ×4 (04:23→22:07)
[2020-11-13] MEDS: propofoL 1,000 MG/100 ML VIAL IV PRN ×4 (05:07→21:15)
[2020-11-13] MEDS: levETIRAcetam 500 MG in NA CHLORIDE 0.9% 100 ML IV SCH ×2 (05:08→17:34)
[2020-11-13 05:21] LABS: Arterial Blood Carboxyhemoglob 1.4 % (0-1.5); Blood Gas Oxyhemoglobin 93.7 % (94-97); Blood O2 Saturation 95.9 % (92-98.5)
[2020-11-13] MEDS ORDERED: propofoL 1,000 MG/100 ML VIAL IV ONE ×4 (05:25→21:31)
[2020-11-13] MEDS ORDERED: NA CHLORIDE 0.9% 0 ML ONE (05:36)
[2020-11-13] MEDS ORDERED: PANTOPRAZOLE 40 MG INJ ONE (05:36)
[2020-11-13 06:04] LABS: Absolute Lymphocytes (CBC) 0.6 K/uL (0.7-4.9); Basophils % 0.1 % (0-1.3); Hematocrit 26.9 % (39.6-49.0); Lymphocytes % 5.1 % (15.3-44.8); MPV 8.9 fL (7.6-11.3); RBC Red Blood Cell Count 2.98 M/uL (4.33-5.43)
[2020-11-13 06:16] LABS: ALT/SGPT 38 U/L (12-78); AST/SGOT 46 U/L (15-37); Albumin 1.7 g/dL (3.4-5.0); Alkaline Phosphatase 76 U/L (45-117); BUN Blood Urea Nitrogen 15 mg/dL (7-18); Bicarbonate 28 mmol/L (21-32); Bilirubin Total 0.3 mg/dL (0.2-1.0); Glucose Level 199 mg/dL (74-106); Magnesium 2.3 mg/dL (1.8-2.4); Potassium 3.4 mmol/L (3.5-5.1); Protein, Total 5.8 g/dL (6.4-8.2); Sodium Level 145 mmol/L (136-145)
[2020-11-13] MEDS: THIAMINE 200 MG/2 ML INJ IVP SCH ×2 (08:53→21:15)
[2020-11-13] MEDS: ENOXAPARIN 40 MG/0.4 ML SQ SCH (08:53)
[2020-11-13] MEDS: FAMOTIDINE 20 MG/2 ML VIAL IV SCH ×2 (08:53→21:15)
[2020-11-13] MEDS: FOLIC ACID 1 MG TABLET PO SCH (08:55)
[2020-11-13] MEDS: Levofloxacin 750mg IV 750 MG/150 ML BAG IV SCH (08:55)
[2020-11-13] MEDS: KCL 20 MEQ/100 mL IVPB 20 MEQ/100 ML BAG IV SCH ×2 (08:55→13:12)
[2020-11-13 09:04] LABS: Blood Morphology Comment NOT SEEN (NOT SEEN); Platelet Estimate ADEQ
[2020-11-13] MEDS ORDERED: FAMOTIDINE 20 MG/2 ML VIAL IV ONE ×2 (09:09→21:31)
[2020-11-13] MEDS ORDERED: ENOXAPARIN 40 MG/0.4 ML SQ ONE (09:09)
[2020-11-13] MEDS ORDERED: Levofloxacin 750mg IV 750 MG/150 ML BAG IV ONE (09:09)
[2020-11-13] MEDS ORDERED: THIAMINE 200 MG/2 ML INJ ONE ×2 (09:09→21:31)
[2020-11-13] MEDS ORDERED: KCL 20 MEQ/100 mL IVPB 20 MEQ/100 ML BAG IV ONE ×2 (09:10→12:34)
[2020-11-13] MEDS: ACETAMINOPHEN 650MG/RECT SUPP PR PRN (10:35)
[2020-11-13] MEDS: METOPROLOL TARTRATE 5 MG/5 ML INJ IV PRN ×2 (10:35→17:48)
[2020-11-13] MEDS ORDERED: ACETAMINOPHEN 650MG/RECT SUPP PR ONE (10:53)
[2020-11-13] MEDS ORDERED: METOPROLOL TARTRATE 5 MG/5 ML INJ IV ONE (10:53)
[2020-11-13] MEDS ORDERED: FUROSEMIDE 40 MG/4 ML VIAL IV ONE (11:17)
--- NOTE | 2020-11-13 11:21 | RAD REPORT ---
EXAM DESCRIPTION: RAD - Chest Single View - 11/13/2020 5:33 am CLINICAL HISTORY: The patient is 39 years old and is Male; ETT position level TECHNIQUE: Frontal view of the chest. COMPARISON: No relevant prior studies available. FINDINGS: Lungs: Scattered interstitial opacities bilaterally. Elevation of the diaphragm with low lung volumes bilaterally. The left hemidiaphragm is obscured which can be seen with left lower lobe consolidation or at electasis. Pleural space: Unremarkable. No pneumothorax. Heart: Unremarkable. Mediastinum: Unremarkable. Bones/joints: Unremarkable. Tubes, lines and devices: Endotracheal tube with tip 3.5 cm above the [place]. Nasogastric tube coursing below the diaphragm and outside the field of view. IMPRESSION: 1. Scattered interstitial opacities bilaterally. 2. Elevation of the diaphragm with low lung volumes bilaterally. 3. The left hemidiaphragm is obscured which can be seen with left lower lobe consolidation or atele ctasis. Electronically signed by: Song Samaniego MD 11/13/2020 5:51 AM CDT Due to temporary technical issues with the PACS/Fluency reporting system, reports are being signed by the in house radiologists without review as a courtesy to insure prompt reporting. The interpreting radiologist is fully responsible for the content of the report.
[2020-11-13] MEDS: HYDRALAZINE HCL 20 MG/ML VIAL IV PRN (15:07)
[2020-11-13] MEDS ORDERED: HYDRALAZINE HCL 20 MG/ML VIAL ONE (15:24)
[2020-11-13] MEDS: [UNRECOGNIZED DRUG - OTHER] IV SCH ×4 (16:49)
[2020-11-13] MEDS: LIPIDS 20% IV SCH ×4 (16:49)
[2020-11-13] MEDS: MULTIVITAMINS IV SCH ×4 (16:49)
[2020-11-13] MEDS ORDERED: HYDROCORTISONE SUC 100 MG INJ IV ONE (21:00)
[2020-11-13] MEDS ORDERED: DIPHENHYDRAMINE 50 MG/ML VIAL IV ONE (21:00)
[2020-11-13] MEDS ORDERED: DIPHENHYDRAMINE 50 MG/ML VIAL ONE (21:31)
[2020-11-13] MEDS ORDERED: HYDROCORTISONE SUC 100 MG INJ ONE (21:31)
[2020-11-13] MEDS ORDERED: LORazepam 2 MG/ML VIAL IV ONE (21:51)
[2020-11-13] MEDS ORDERED: LORazepam 2 MG/ML VIAL ONE (22:16)
[2020-11-14] MEDS: KCL 20 MEQ/100 mL IVPB 20 MEQ/100 ML BAG IV SCH ×2 (00:32→03:11)
[2020-11-14] MEDS: Meropenem 1,000 MG in NA CHLORIDE 0.9% 100 ML IV SCH (00:33)
[2020-11-14] MEDS: HYDROMORPHONE HCL 1 MG/ML INJ IV PRN (00:33)
[2020-11-14] MEDS ORDERED: KCL 20 MEQ/100 mL IVPB 40 MEQ/200 ML BAG IV ONE (00:47)
[2020-11-14] MEDS: PROMETHAZINE INJ 25 MG/ML AMP IV PRN (03:34)
[2020-11-14] MEDS ORDERED: PROMETHAZINE INJ 25 MG/ML AMP ONE (03:52)
[2020-11-14] MEDS: LORazepam 2 MG/ML VIAL IV PRN ×2 (04:04→23:09)
[2020-11-14] MEDS ORDERED: LORazepam 2 MG/ML VIAL ONE ×3 (04:17→23:27)
[2020-11-14] MEDS ORDERED: LORazepam 2 MG/ML VIAL IV ONE (04:35)
[2020-11-14] MEDS ORDERED: KETOROLAC 30 MG/ML INJ IV ONE (04:44)
[2020-11-14] MEDS ORDERED: SODIUM CHLORIDE 0.9% 10ML INJ IV PRN (04:50)
--- NOTE | 2020-11-14 05:13 | P.PN ---
Date of Service: 11/11/[address] scan of the abdomen and pelvis still reveals persistent inflammation of the pancreas. CT of the brain was negative. Patient is waking up and following some commands. Remains febrile. Chest x-ray shows worsening pneumonic process Review of Systems is unable to be obtained Physical Examination - Vital Signs Reviewed - Physical Exam General: Other (Intubated and sedated-following commands) HEENT: ET tube in place; NG tube in place Respiratory: Clear to auscultation bilaterally, Normal air movement Cardiovascular: Regular rate/rhythm, Normal S1 S2, Systolic murmur Gastrointestinal: Normal bowel sounds, Soft and benign, Non-distended Musculoskeletal: No clubbing, Swelling Neurological: Other (Sedated and intubated; moving toes and squeezing hands and blinking on command) Assessment & Plan - Problems (Diagnosis) (1) Acute pancreatitis Current Visit: Yes Status: Acute (2) Fever Current Visit: Yes Status: Acute (3) Pneumonia Current Visit: Yes Status: Acute (4) Respiratory failure Current Visit: Yes Status: Acute Qualifiers: Chronicity: acute (5) Alcohol abuse Current Visit: No Status: Acute (6) Hypertension Current Visit: No Status: Acute Qualifiers: Hypertension type: essential hypertension Qualified Code(s): I10 - Essential (primary) hypertension (7) Seizure/DTs Current Visit: No Status: Acute - Plan Plan: Continue with plan of care as mentioned below 1. Continue anti epileptics; EEG with no seizure activity. Continue with anti epileptics as patient had a seizure on arrival most likely from DTs 2. Continue on sedation. Nursing staff feels propofol is keeping him better sedated which is possible as patient has and alcohol addiction. Versed may not be working as well but he was still benefit from scheduled benzodiazepine use secondary to his alcohol addiction. He also has hydrocodone abuse and will continue with IV pain medication. 3. Pain control; continue narcotics as needed 4. Antipyretics; given IV hydrocortisone & benadryl(? NMS or malignanat hyperthermia; but now CXR with progressive pneumonia); most likely related to pneumonia. Could also be related to his significant inflammation seen on pancreatitis. Continue with antipyretics. We do not have IV acetaminophen available at our hospital. 5. Continue with IV antibiotics-zosyn and levquin; critical care recommending meropenem usage which I went ahead and switched patient's antibiotics to meropenem 6. Vent support 7. Appreciate Pulmonary consultation 8. GI and DVT prophylaxis Discharge Plan: Home Plan to discharge in: Greater than 2 days - Advance Directives Does patient have a Living Will: No Does patient have a Durable POA for Healthcare: No - Code Status/Comfort Care Code Status Assessed: Yes Code Status: Full Code Critical Care: Yes Time Spent Managing PTS Care (In Minutes): 45
[2020-11-14] MEDS ORDERED: KETOROLAC 30 MG/ML INJ ONE ×3 (05:15→20:57)
--- NOTE | 2020-11-14 05:16 | P.PN ---
Date of Service: 11/12/20 Subjective Patient clinically doing better. However, still febrile but this is been improving. Respiratory status remained stable. Spoke with Pulmonary and will work on trying to wean him off through the weekend but plan on extubation on Saturday if he does well. Continue with antibiotic therapy. Continue with fever and pain control. Review of Systems is unable to be obtained Physical Examination - Vital Signs Reviewed - Physical Exam General: Other (Intubated and sedated-following commands) HEENT: ET tube in place; NG tube in place Respiratory: Clear to auscultation bilaterally, Normal air movement Cardiovascular: Regular rate/rhythm, Normal S1 S2, Systolic murmur Gastrointestinal: Normal bowel sounds, Soft and benign, Non-distended Musculoskeletal: No clubbing, Swelling Neurological: Other (Sedated and intubated; moving toes and squeezing hands and blinking on command) Assessment & Plan - Problems (Diagnosis) (1) Acute pancreatitis Current Visit: Yes Status: Acute (2) Fever Current Visit: Yes Status: Acute (3) Pneumonia Current Visit: Yes Status: Acute (4) Respiratory failure Current Visit: Yes Status: Acute Qualifiers: Chronicity: acute (5) Alcohol abuse Current Visit: No Status: Acute (6) Hypertension Current Visit: No Status: Acute Qualifiers: Hypertension type: essential hypertension Qualified Code(s): I10 - Essential (primary) hypertension (7) Seizure/DTs Current Visit: No Status: Acute - Plan Plan: Continue with plan of care as mentioned below; no significant changes as patient is more awake and alert. Gently diuresed him as well. Pancreatitis seems to be stable. Patient no significant pain on examination. Chest x-ray findings are a little worsening. Continue with broad-spectrum antibiotic coverage as mentioned below. Using Tylenol as well as occasional Toradol IV push to control patient's fever. Will need to use medications to prevent gastritis and also monitor renal function. 1. Continue anti epileptics; EEG with no seizure activity. Continue with anti epileptics as patient had a seizure on arrival most likely from DTs 2. Continue on sedation. Nursing staff feels propofol is keeping him better sedated which is possible as patient has and alcohol addiction. Versed may not be working as well but he was still benefit from scheduled benzodiazepine use secondary to his alcohol addiction. He also has hydrocodone abuse and will continue with IV pain medication. 3. Pain control; continue narcotics as needed 4. Antipyretics; given IV hydrocortisone & benadryl(? NMS or malignanat hyperthermia; but now CXR with progressive pneumonia); most likely related to pneumonia. Could also be related to his significant inflammation seen on pancreatitis. Continue with antipyretics. We do not have IV acetaminophen available at our hospital. 5. Continue with IV antibiotics-zosyn and levquin; critical care recommending meropenem usage which I went ahead and switched patient's antibiotics to meropenem 6. Vent support 7. Appreciate Pulmonary consultation 8. GI and DVT prophylaxis Discharge Plan: Home Plan to discharge in: Greater than 2 days - Advance Directives Does patient have a Living Will: No Does patient have a Durable POA for Healthcare: No - Code Status/Comfort Care Code Status Assessed: Yes Code Status: Full Code Critical Care: Yes Time Spent Managing PTS Care (In Minutes): 45
--- NOTE | 2020-11-14 05:22 | P.PN ---
Date of Service: 11/13/20 Subjective Patient continues to show some improvement. Patient remains hypoxic. Patient remains febrile. Continue with current plan of care. Currently on TPN. Continue with antipyretics. Review of Systems is unable to be obtained Physical Examination - Vital Signs Reviewed - Physical Exam General: Other (Intubated and sedated-following commands) HEENT: ET tube in place; NG tube in place Respiratory: Clear to auscultation bilaterally, Normal air movement Cardiovascular: Regular rate/rhythm, Normal S1 S2, Systolic murmur Gastrointestinal: Normal bowel sounds, Soft and benign, Non-distended Musculoskeletal: No clubbing, Swelling Neurological: Other (Sedated and intubated; moving toes and squeezing hands and blinking on command) Assessment & Plan - Problems (Diagnosis) (1) Acute pancreatitis Current Visit: Yes Status: Acute (2) Fever Current Visit: Yes Status: Acute (3) Pneumonia Current Visit: Yes Status: Acute (4) Respiratory failure Current Visit: Yes Status: Acute Qualifiers: Chronicity: acute (5) Alcohol abuse Current Visit: No Status: Acute (6) Hypertension Current Visit: No Status: Acute Qualifiers: Hypertension type: essential hypertension Qualified Code(s): I10 - Essential (primary) hypertension (7) Seizure/DTs Current Visit: No Status: Acute - Plan Plan: Patient remains febrile. Continue with anti-epileptic. Continue with antibiotic therapy; continue antipyretics. Alternating between Tylenol and occasional use of Toradol as well as occasional use of Hydrocortisone with Benadryl to control the fever. Most likely source is the pneumonia. 1. Continue anti epileptics; EEG with no seizure activity. Continue with anti epileptics as patient had a seizure on arrival most likely from DTs 2. Continue on sedation. Nursing staff feels propofol is keeping him better sedated which is possible as patient has and alcohol addiction. Versed may not be working as well but he was still benefit from scheduled benzodiazepine use secondary to his alcohol addiction. He also has hydrocodone abuse and will continue with IV pain medication. 3. Pain control; continue narcotics as needed 4. Antipyretics; given IV hydrocortisone & benadryl(? NMS or malignanat hyperthermia; but now CXR with progressive pneumonia); most likely related to pneumonia. Could also be related to his significant inflammation seen on pancreatitis. Continue with antipyretics. We do not have IV acetaminophen available at our hospital. 5. Continue with IV antibiotics-switched patient's antibiotics to meropenem 6. Vent support; weaning off of the ventilator. 7. Appreciate Pulmonary consultation 8. GI and DVT prophylaxis Discharge Plan: Home Plan to discharge in: Greater than 2 days - Advance Directives Does patient have a Living Will: No Does patient have a Durable POA for Healthcare: No - Code Status/Comfort Care Code Status Assessed: Yes Code Status: Full Code Critical Care: Yes Time Spent Managing PTS Care (In Minutes): 45
[2020-11-14] MEDS: levETIRAcetam 500 MG in NA CHLORIDE 0.9% 100 ML IV SCH (05:36)
[2020-11-14] MEDS: propofoL 1,000 MG/100 ML VIAL IV PRN (06:15)
[2020-11-14 06:21] LABS: Absolute Lymphocytes (CBC) 0.8 K/uL (0.7-4.9); Basophils % 0.3 % (0-1.3); Hematocrit 28.5 % (39.6-49.0); Lymphocytes % 5.7 % (15.3-44.8); MPV 8.3 fL (7.6-11.3); RBC Red Blood Cell Count 3.18 M/uL (4.33-5.43)
[2020-11-14] MEDS ORDERED: propofoL 1,000 MG/100 ML VIAL IV ONE (06:33)
[2020-11-14 06:40] LABS: ALT/SGPT 50 U/L (12-78); AST/SGOT 36 U/L (15-37); Albumin 1.9 g/dL (3.4-5.0); Alkaline Phosphatase 89 U/L (45-117); BUN Blood Urea Nitrogen 12 mg/dL (7-18); Bicarbonate 28 mmol/L (21-32); Bilirubin Total 0.4 mg/dL (0.2-1.0); Glucose Level 157 mg/dL (74-106); Magnesium 2.4 mg/dL (1.8-2.4); Phosphorus 3.4 mg/dL (2.5-4.9); Potassium 3.7 mmol/L (3.5-5.1); Protein, Total 6.3 g/dL (6.4-8.2); Sodium Level 145 mmol/L (136-145)
[2020-11-14] MEDS ORDERED: KCL 20 MEQ/100 mL IVPB 20 MEQ/100 ML BAG IV SCH (08:00)
[2020-11-14] MEDS ORDERED: PROPRANOLOL HCL 40 MG TAB PO PRN (08:08)
--- NOTE | 2020-11-14 08:13 | P.PN ---
Subjective Date of Service: 11/14/20 Chief Complaint: Pancreatitis respiratory failure Patient is more alert today still has diarrhea cooperative febrile Review of Systems is unable to be obtained Physical Examination - Vital Signs Temperature: 101 F Blood Pressure: 133/107 Pulse: 108 Respirations: 20 Pulse Ox (%): 98 - Physical Exam General: Alert, Cooperative Cardiovascular: No edema, Normal S1 S2 Assessment & Plan - Problems (Diagnosis) (1) Respiratory failure Current Visit: Yes Status: Acute Plan: Respiratory failure and fever in addition to diarrhea I doubt if is septic blood pressure is mildly elevated resume presume is psychiatric medication the be withdrawal from dopaminergic agents that may have precipitated high fever cultures are negative there is no clinical evidence of sepsis indeed his abdomen is very soft no rebound or guarding lipase is normal white count is mildly elevated with start some tube feeds poly plan to wean him off from the ventilator and extubate still less some secretion cultures negative Dc IV fluids patient has diarrhea C difficile negative history have perihilar infiltrates the tracheal tube satisfactory position Qualifiers: Chronicity: acute
[2020-11-14] MEDS: DULOXETINE 20 MG CAP PO SCH (08:47)
[2020-11-14] MEDS: CYCLOBENZAPRINE 10 MG TAB PO SCH ×2 (08:47→18:19)
[2020-11-14] MEDS: levETIRAcetam 500 MG TAB PO SCH ×2 (08:49→20:54)
[2020-11-14] MEDS: lisinopriL 20 MG TAB PO SCH ×2 (08:51→20:55)
[2020-11-14] MEDS: ENOXAPARIN 40 MG/0.4 ML SQ SCH (09:01)
[2020-11-14] MEDS: THIAMINE 200 MG/2 ML INJ IVP SCH ×2 (09:01→20:54)
[2020-11-14] MEDS: PANTOPRAZOLE 40 MG INJ IVP SCH ×2 (09:01→20:54)
[2020-11-14] MEDS: METOPROLOL TARTRATE 5 MG/5 ML INJ IV PRN ×2 (09:03→13:03)
[2020-11-14] MEDS ORDERED: METOPROLOL TARTRATE 5 MG/5 ML INJ IV ONE ×2 (09:17→13:20)
[2020-11-14] MEDS ORDERED: ENOXAPARIN 40 MG/0.4 ML SQ ONE (09:17)
[2020-11-14] MEDS ORDERED: THIAMINE 200 MG/2 ML INJ ONE ×2 (09:17→20:56)
[2020-11-14] MEDS ORDERED: PANTOPRAZOLE 40 MG INJ ONE ×2 (09:17→20:57)
[2020-11-14] MEDS ORDERED: KCL 20 MEQ/100 mL IVPB 20 MEQ/100 ML BAG IV ONE (09:18)
[2020-11-14] MEDS: KETOROLAC 30 MG/ML INJ IV PRN ×2 (09:59→23:10)
--- NOTE | 2020-11-14 10:31 | RAD REPORT ---
EXAM DESCRIPTION: XR Chest, 1 View CLINICAL HISTORY: The patient is 39 years old and is Male; ETT placement TECHNIQUE: Frontal view of the chest. COMPARISON: Chest radiograph November 13, 2020 FINDINGS: LUNGS: There are significantly low lung volumes. Enlargement of the hilum bilaterally is present. Perihilar and infrahilar opacities are present. PLEURAL SPACE: Unremarkable. No pneumothorax. HEART: Unremarkable. No cardiomegaly. MEDIASTINUM: Unremarkable. BONES/JOINTS: Unremarkable. TUBES, LINES AND DEVICES: Endotracheal tube remains between the thoracic inlet and [place]. Enter ic tube courses beneath the level of the hemidiaphragm, the tip is off the [id number]. IMPRESSION: Persistent low lung volumes with perihilar and infrahilar atelectasis. The appearance is similar to prior exam. Electronically signed by: Cici Restrepo MD 11/14/2020 4:34 AM CDT Due to temporary technical issues with the PACS/Fluency reporting system, reports are being signed by the in house radiologist without review as a courtesy to ensure prompt reporting. The interpreting r adiologist is fully responsible for the content of the report.
--- NOTE | 2020-11-14 16:46 | P.PN ---
Subjective Date of Service: 11/14/20 Chief Complaint: Pancreatitis respiratory failure Subjective: Other (Patient remains intubated.) Physical Examination - Vital Signs Temperature: 101.5 F Blood Pressure: 160/88 Pulse: 105 Respirations: 30 Pulse Ox (%): 98 Assessment & Plan Discharge Plan: Home Plan to discharge in: Greater than 2 days Physician Review Additional Text: Physical exam: Patient remains intubated. Patient tachycardic Lungs: Clear anteriorly Abdomen: Soft nontender Extremities: No significant edema Impression: Acute respiratory failure secondary to aspiration pneumonia Acute pancreatitis Fever unknown etiology Diarrhea without evidence of C. difficile colitis Alcohol abuse with severe DTs Seizure disorder Hypertension GERD Obesity, BMI 41.2 Plan: Continue current plan of care. Will discuss with pulmonology. Pulmonology plans to wean off ventilator. Continue seizure medication. Will monitor diarrhea closely. Continue medication for fever including nonsteroidal anti- inflammatories. Will monitor closely. No evidence of sepsis at this time. Will discuss with pulmonology and neurology. We will continue to reassess. Monitor lab closely. DVT prophylaxis in place. Pulmonology added medication for blood pressure. Will provide medication for GERD. Time Spent Managing Pts Care (In Minutes): 55
[2020-11-14] MEDS: LIPIDS 20% IV SCH ×4 (17:29)
[2020-11-14] MEDS: MULTIVITAMINS IV SCH ×4 (17:29)
[2020-11-14] MEDS: [UNRECOGNIZED DRUG - OTHER] IV SCH ×4 (17:29)
[2020-11-14] MEDS ORDERED: CYCLOBENZAPRINE 10 MG TAB ONE (18:37)
[2020-11-14] MEDS: ACETAMINOPHEN 160 MG/5 ML UCUP PO PRN (20:56)
[2020-11-14] MEDS ORDERED: lisinopriL 20 MG TAB ONE (20:57)
[2020-11-14] MEDS ORDERED: levETIRAcetam 500 MG TAB ONE (20:57)
[2020-11-14] MEDS ORDERED: ACETAMINOPHEN 160 MG/5 ML UCUP ONE (20:58)
[2020-11-14] MEDS ORDERED: WATER FOR INJ,STERILE 10 ML ONE (21:01)
[2020-11-15] MEDS ORDERED: CYCLOBENZAPRINE 10 MG TAB ONE ×3 (01:11→16:30)
[2020-11-15] MEDS: CYCLOBENZAPRINE 10 MG TAB PO SCH ×3 (01:46→16:14)
[2020-11-15] MEDS: HYDROMORPHONE HCL 1 MG/ML INJ IV PRN ×2 (02:50→08:28)
[2020-11-15] MEDS ORDERED: HYDROMORPHONE HCL 1 MG/ML INJ ONE ×4 (03:08→16:30)
[2020-11-15 05:43] LABS: Absolute Lymphocytes (CBC) 1.1 K/uL (0.7-4.9); Basophils % 0.2 % (0-1.3); Hematocrit 25.9 % (39.6-49.0); Lymphocytes % 7.8 % (15.3-44.8); MPV 8.3 fL (7.6-11.3); RBC Red Blood Cell Count 2.88 M/uL (4.33-5.43)
[2020-11-15] MEDS: ACETAMINOPHEN 160 MG/5 ML UCUP PO PRN ×3 (05:48→22:16)
[2020-11-15] MEDS: KETOROLAC 30 MG/ML INJ IV PRN ×3 (05:49→20:57)
[2020-11-15 05:52] LABS: ALT/SGPT 49 U/L (12-78); AST/SGOT 42 U/L (15-37); Albumin 1.9 g/dL (3.4-5.0); Alkaline Phosphatase 76 U/L (45-117); BUN Blood Urea Nitrogen 13 mg/dL (7-18); Bicarbonate 28 mmol/L (21-32); Bilirubin Total 0.5 mg/dL (0.2-1.0); Glucose Level 109 mg/dL (74-106); Magnesium 2.4 mg/dL (1.8-2.4); Potassium 3.7 mmol/L (3.5-5.1); Protein, Total 5.6 g/dL (6.4-8.2); Sodium Level 143 mmol/L (136-145)
[2020-11-15] MEDS ORDERED: ACETAMINOPHEN 160 MG/5 ML UCUP ONE ×3 (06:05→21:11)
[2020-11-15] MEDS ORDERED: KETOROLAC 30 MG/ML INJ ONE ×3 (06:05→21:15)
[2020-11-15] MEDS ORDERED: KCL 20 MEQ/100 mL IVPB 20 MEQ/100 ML BAG IV SCH (08:00)
[2020-11-15] MEDS: ENOXAPARIN 40 MG/0.4 ML SQ SCH (08:10)
[2020-11-15] MEDS: DULOXETINE 20 MG CAP PO SCH (08:10)
[2020-11-15] MEDS: levETIRAcetam 500 MG TAB PO SCH ×2 (08:11→20:26)
[2020-11-15] MEDS: PANTOPRAZOLE 40 MG INJ IVP SCH (08:11)
[2020-11-15] MEDS: lisinopriL 20 MG TAB PO SCH ×2 (08:11→20:28)
[2020-11-15] MEDS: THIAMINE 200 MG/2 ML INJ IVP SCH ×2 (08:11→20:35)
[2020-11-15] MEDS ORDERED: LORazepam 2 MG/ML VIAL ONE ×4 (08:23→21:11)
[2020-11-15] MEDS ORDERED: THIAMINE 200 MG/2 ML INJ ONE ×2 (08:23→20:53)
[2020-11-15] MEDS ORDERED: levETIRAcetam 500 MG TAB ONE ×2 (08:24→20:40)
[2020-11-15] MEDS ORDERED: ENOXAPARIN 40 MG/0.4 ML SQ ONE (08:24)
[2020-11-15] MEDS ORDERED: PANTOPRAZOLE 40 MG INJ ONE (08:24)
[2020-11-15] MEDS ORDERED: lisinopriL 20 MG TAB ONE ×2 (08:24→20:40)
[2020-11-15] MEDS ORDERED: KCL 20 MEQ/100 mL IVPB 20 MEQ/100 ML BAG IV ONE (08:24)
[2020-11-15] MEDS: LORazepam 2 MG/ML VIAL IV PRN ×5 (09:21→20:53)
[2020-11-15] MEDS: LACTOBACILLUS/ACIDOPHILUS TAB PO SCH ×3 (09:22→20:27)
--- NOTE | 2020-11-15 15:06 | P.PN ---
Subjective Date of Service: 11/15/20 Chief Complaint: Pancreatitis respiratory failure Subjective: Improving, Doing well Physical Examination - Vital Signs Temperature: 101 F Blood Pressure: 135/81 Pulse: 110 Respirations: 24 Pulse Ox (%): 97 Assessment & Plan Discharge Plan: Home Plan to discharge in: Greater than 2 days Physician Review Additional Text: Physical exam: Patient remains intubated. Patient tachycardic Lungs: Clear anteriorly Abdomen: Soft nontender Extremities: No significant edema Impression: Acute respiratory failure secondary to aspiration pneumonia Acute pancreatitis Fever unknown etiology Diarrhea without evidence of C. difficile colitis Alcohol abuse with severe DTs Seizure disorder Depression with anxiety Hypertension GERD Obesity, BMI 41.2 Plan: Acute respiratory failure secondary to aspiration pneumonia: Patient was extubated yesterday. Pulmonology discontinued antibiotic therapy. Patient doing well. Continue to wean off oxygen. Encourage incentive spirometer. Encourage ambulation. Patient still with slight confusion. Will order MRI to further evaluate. We will also consult psychiatry to evaluate for possible underlying mental disorder. Patient admits to severe alcohol use. Patient plans to quit. We will continue to monitor the patient closely. Will discuss with pulmonology and neurology. Anticipate improvement over the next 48 to 72 hours. Acute pancreatitis: This has resolved. Continue oral intake. If taking good oral intake then will discontinue TPN. Fever unknown etiology: This may be related to DTs. We will monitor this closely. Will discuss with neurology. Continue as above. Diarrhea without evidence of C. difficile colitis: This appears improved. Rectal system to be discontinued. Bello catheter to also to be discontinued. C. difficile negative. Alcohol abuse with severe DTs: Patient admits drinking heavily. He plans to quit. Continue to monitor the patient closely. Seizure disorder: Continue Keppra Depression with anxiety: Continue Cymbalta. We will have psychiatry evaluate further. Hypertension: Blood pressure stable. Continue medication GERD: Continue medication Obesity, BMI 41.2: Continue lifestyle modification education. Time Spent Managing Pts Care (In Minutes): 55
[2020-11-15] MEDS ORDERED: D50W 25 GM/50 ML VIAL IV PRN (16:00)
[2020-11-15] MEDS ORDERED: HYDROMORPHONE HCL 1 MG/ML INJ IV ONE (17:17)
[2020-11-15] MEDS: LIPIDS 20% IV SCH ×4 (17:30)
[2020-11-15] MEDS: [UNRECOGNIZED DRUG - OTHER] IV SCH ×4 (17:30)
[2020-11-15] MEDS: MULTIVITAMINS IV SCH ×4 (17:30)
--- NOTE | 2020-11-15 18:22 | RAD REPORT ---
EXAM DESCRIPTION: MRI - Brain W/Wo Cont - 11/15/2020 5:58 pm CLINICAL HISTORY: Alteration of consciousness /conjugate left eye deviation r/o brain lesion COMPARISON: November 11, [address] TECHNIQUE: Axial, sagittal, and coronal magnetic images of the brain were obtained. 20 cc MultiHance administered intravenously FINDINGS: 9 millimeter area of abnormal signal within the right frontal lobe has low signal peripher y on T2 weighted sequences. It is compatible with cavernous angioma. No surrounding bleed. The ventricles are normal in caliber. Diffusion-weighted/ ADC mapping sequences do not demonstrate evidence of an acute infarction. No abnormal enhancement within the brain is seen. An extra-axial fluid collection is not noted. The hippocampal gyri are normal caliber and signal Fluid within the maxillary, ethmoid and sphenoid sinuses IMPRESSION: No acute intracranial abnormality displayed 9 millimeter cavernous angioma right frontal lobe Acute sinusitis
[2020-11-15] MEDS: HYDROCODONE/APAP 5/325 MG TAB PO PRN (18:24)
[2020-11-15] MEDS ORDERED: HYDROCODONE/APAP 5/325 MG TAB ONE (18:41)
[2020-11-15] MEDS ORDERED: THIAMINE HCL 100 MG TABLET ONE (20:40)
[2020-11-16] MEDS: LORazepam 2 MG/ML VIAL IV PRN ×2 (01:02→22:55)
[2020-11-16] MEDS ORDERED: CYCLOBENZAPRINE 10 MG TAB ONE ×2 (01:03→08:25)
[2020-11-16] MEDS: CYCLOBENZAPRINE 10 MG TAB PO SCH ×3 (01:03→16:20)
[2020-11-16] MEDS ORDERED: LORazepam 2 MG/ML VIAL ONE (01:04)
[2020-11-16] MEDS ORDERED: HYDROCODONE/APAP 5/325 MG TAB ONE ×2 (02:14→08:26)
[2020-11-16] MEDS: HYDROCODONE/APAP 5/325 MG TAB PO PRN ×4 (02:17→21:01)
[2020-11-16 05:37] LABS: Absolute Lymphocytes (CBC) 1.3 K/uL (0.7-4.9); Basophils % 0.2 % (0-1.3); Hematocrit 25.2 % (39.6-49.0); Lymphocytes % 9.4 % (15.3-44.8); RBC Red Blood Cell Count 2.85 M/uL (4.33-5.43)
[2020-11-16 05:58] LABS: ALT/SGPT 42 U/L (12-78); AST/SGOT 30 U/L (15-37); Alkaline Phosphatase 75 U/L (45-117); BUN Blood Urea Nitrogen 10 mg/dL (7-18); Bicarbonate 29 mmol/L (21-32); Bilirubin Total 0.6 mg/dL (0.2-1.0); Glucose Level 103 mg/dL (74-106); Magnesium 2.3 mg/dL (1.8-2.4); Protein, Total 6.1 g/dL (6.4-8.2); Sodium Level 138 mmol/L (136-145)
[2020-11-16] MEDS: PANTOPRAZOLE 40MG TABLET PO SCH (06:17)
[2020-11-16] MEDS: ACETAMINOPHEN 160 MG/5 ML UCUP PO PRN ×2 (06:18→22:51)
[2020-11-16] MEDS ORDERED: PANTOPRAZOLE 40MG TABLET PO ONE (06:32)
[2020-11-16] MEDS ORDERED: ACETAMINOPHEN 160 MG/5 ML UCUP ONE (06:32)
--- NOTE | 2020-11-16 07:20 | RAD REPORT ---
EXAM DESCRIPTION: [place] Single View11/16/2020 7:14 am CLINICAL HISTORY: Cough COMPARISON: November 14, 2020 FINDINGS: Mild improvement in the bilateral pulmonary opacities. The heart is mildly enlarged. Small left pleural effusion IMPRESSION: Mild improvement in the bilateral pulmonary opacities
[2020-11-16] MEDS: lisinopriL 10 MG TAB PO SCH ×2 (08:10→21:03)
[2020-11-16] MEDS: ENOXAPARIN 40 MG/0.4 ML SQ SCH (08:11)
[2020-11-16] MEDS: THIAMINE 200 MG/2 ML INJ IVP SCH (08:11)
[2020-11-16] MEDS: DULOXETINE 20 MG CAP PO SCH (08:11)
[2020-11-16] MEDS: LACTOBACILLUS/ACIDOPHILUS TAB PO SCH ×3 (08:11→21:00)
[2020-11-16] MEDS: levETIRAcetam 500 MG TAB PO SCH (08:11)
[2020-11-16] MEDS ORDERED: THIAMINE 200 MG/2 ML INJ ONE (08:25)
[2020-11-16] MEDS ORDERED: METOPROLOL TAR 25 MG TAB ONE (08:26)
[2020-11-16] MEDS ORDERED: ENOXAPARIN 40 MG/0.4 ML SQ ONE (08:26)
[2020-11-16] MEDS ORDERED: lisinopriL 10 MG TAB ONE (08:26)
[2020-11-16] MEDS ORDERED: levETIRAcetam 500 MG TAB ONE (08:26)
[2020-11-16] MEDS ORDERED: METOPROLOL TAR 50 MG TAB PO SCH (09:00)
[2020-11-16] MEDS ORDERED: METOPROLOL TAR 25 MG TAB PO SCH ×2 (09:00→21:00)
[2020-11-16] MEDS: IBUPROFEN 400 MG TAB PO PRN (12:10)
[2020-11-16] MEDS ORDERED: TRAMADOL HCL 50 MG TAB PO PRN (13:52)
--- NOTE | 2020-11-16 13:52 | P.PN ---
Subjective Date of Service: 11/16/20 Primary Care Provider: none Chief Complaint: Pancreatitis respiratory failure Subjective: Other (Doing well. No complaints. Still with fevers.) Physical Examination - Vital Signs Temperature: 100.2 F Blood Pressure: 160/76 Pulse: 118 Respirations: 18 Pulse Ox (%): 92 Assessment & Plan Discharge Plan: Home Plan to discharge in: 72 Hours Physician Review Additional Text: Physical exam: On 3 l/NC. Patient tachycardic Lungs: Clear anteriorly Abdomen: Soft nontender Extremities: No significant edema Impression: Acute respiratory failure secondary to aspiration pneumonia Acute pancreatitis Fever unknown etiology Diarrhea without evidence of C. difficile colitis Alcohol abuse with severe DTs Seizure disorder Depression with anxiety Hypertension GERD Obesity, BMI 41.2 MRI shows 9 mm cavernous angioma to the right frontal lobe Plan: Acute respiratory failure secondary to aspiration pneumonia: Patient has done well status post extubation. Currently on 3 L per nasal cannula. Continue to wean off. Pulmonology has discontinued antibiotic medication. Patient was ex tubated yesterday. Pulmonology discontinued antibiotic therapy. Patient doing well. MRI shows 9 mm cavernous angioma to the right frontal lobe. This was discussed in detail with neurology. Also discussed with neurology about his fevers. We will try to limit any medication that can cause malignant hyperthermia. For now we will discontinue Flexeril, Phenergan, Inderal. Will order EEG. Will increase Keppra to 750 mg 1 pill twice daily. Encourage incentive spirometer. Encourage ambulation. Continue to wean off oxygen. Will provide medication for pain. Continue physical therapy. Anticipate improvement over the next 48 hours. Acute pancreatitis: This has resolved. Continue oral intake. Discontinue TPN. Continue supplementation. Will have dietary address daily needs. Fever unknown etiology: This may be medication related. This dose discussed in detail with neurology. We will plan to discontinue Phenergan, Flexeril. Will monitor off medication. We will also increase Keppra. Diarrhea without evidence of C. difficile colitis: This appears improved. Rectal system to be discontinued once diarrhea improved. C. difficile negative. Alcohol abuse with severe DTs: Patient admits drinking heavily. He plans to quit. Continue to monitor the patient closely. Seizure disorder: Case discussed at length with neurology. Will increase Keppra to 750 mg 1 pill twice daily. Will obtain EEG first. Await further recommendations from neurology. Continue with above recommendations. Depression with anxiety: Continue Cymbalta. Regi wu did evaluate patient. He recommended continue current medication. Will provide medicationAtivan as needed. Hypertension: Blood pressure needs to be better controlled. Inderal discontinued. Increase metoprolol. Continue lisinopril. We will continue to adjust medication. GERD: Continue medication Obesity, BMI 41.2: Continue lifestyle modification education. MRI shows 9 mm cavernous angioma to the right frontal lobe: Continue with above recommendation. Case discussed at length with neurology. Time Spent Managing Pts Care (In Minutes): 55
[2020-11-16] MEDS ORDERED: levETIRAcetam 500 MG TAB PO SCH (21:00)
[2020-11-16] MEDS: METOPROLOL TAR 50 MG TAB PO SCH (21:01)
[2020-11-16] MEDS: THIAMINE HCL 100 MG TABLET PO SCH (21:04)
[2020-11-17] MEDS: CYCLOBENZAPRINE 10 MG TAB PO SCH ×2 (01:58→08:15)
[2020-11-17] MEDS: IBUPROFEN 400 MG TAB PO PRN (02:00)
[2020-11-17] MEDS: HYDROCODONE/APAP 5/325 MG TAB PO PRN ×2 (04:47→10:47)
[2020-11-17 05:18] LABS: Absolute Lymphocytes (CBC) 1.2 K/uL (0.7-4.9); Basophils % 0.4 % (0-1.3); Hematocrit 25.8 % (39.6-49.0); Lymphocytes % 9.1 % (15.3-44.8); MPV 8.6 fL (7.6-11.3); RBC Red Blood Cell Count 2.88 M/uL (4.33-5.43)
[2020-11-17 05:53] LABS: ALT/SGPT 34 U/L (12-78); Alkaline Phosphatase 68 U/L (45-117); BUN Blood Urea Nitrogen 10 mg/dL (7-18); Bicarbonate 28 mmol/L (21-32); Bilirubin Total 0.4 mg/dL (0.2-1.0); Glucose Level 92 mg/dL (74-106); Protein, Total 6.5 g/dL (6.4-8.2); Sodium Level 140 mmol/L (136-145)
[2020-11-17 05:55] LABS: AST/SGOT 32 U/L (15-37); Magnesium 2.5 mg/dL (1.8-2.4); Potassium 3.7 mmol/L (3.5-5.1)
[2020-11-17] MEDS: PANTOPRAZOLE 40MG TABLET PO SCH (08:14)
[2020-11-17] MEDS: THIAMINE HCL 100 MG TABLET PO SCH (08:14)
[2020-11-17] MEDS: LACTOBACILLUS/ACIDOPHILUS TAB PO SCH ×2 (08:14→12:43)
[2020-11-17] MEDS: METOPROLOL TAR 50 MG TAB PO SCH (08:14)
[2020-11-17] MEDS: lisinopriL 10 MG TAB PO SCH (08:15)
[2020-11-17] MEDS: DULOXETINE 20 MG CAP PO SCH (08:15)
[2020-11-17] MEDS: ENOXAPARIN 40 MG/0.4 ML SQ SCH (08:16)
[2020-11-17] MEDS ORDERED: FOLIC ACID 1 MG TABLET PO SCH (09:00)
[2020-11-17] MEDS ORDERED: POTASSIUM CL SA 10 MEQ TAB PO ONE (09:00)
[2020-11-17] MEDS ORDERED: levETIRAcetam 500 MG TAB PO SCH (09:00)
[2020-11-17] MEDS: LORazepam 2 MG/ML VIAL IV PRN (10:12)
--- NOTE | 2020-11-17 10:29 | P.PN ---
Subjective Date of Service: 11/17/20 Primary Care Provider: none Chief Complaint: Pancreatitis respiratory failure Subjective: Improving, Doing well Physical Examination - Vital Signs Temperature: 100 F Blood Pressure: 119/59 Pulse: 106 Respirations: 18 Pulse Ox (%): 92 Assessment & Plan Discharge Plan: Home Plan to discharge in: 24 Hours Physician Review Additional Text: Physical exam: Patient no longer on nasal cannula. Patient without fever today. Patient alert, cooperative. No distress noted Lungs: Clear anteriorly Abdomen: Soft nontender. Rectal management system no longer in place. Extremities: No significant edema Impression: Acute respiratory failure secondary to aspiration pneumonia Acute pancreatitis Fever unknown etiology Diarrhea without evidence of C. difficile colitis Alcohol abuse with severe DTs Seizure disorder Depression with anxiety Hypertension GERD Obesity, BMI 41.2 MRI shows 9 mm cavernous angioma to the right frontal lobe Plan: Acute respiratory failure secondary to aspiration pneumonia: Patient doing well at this time. No longer on nasal cannula. Continue incentive spirometer. Encourage ambulation. Will ambulate today. If eating, doing well, ambulating will consider discharge as early as today. MRI shows 9 mm cavernous angioma to the right frontal lobe. This was discussed in detail with neurology. Neurology considered increasing Keppra but due to his history of noncompliance of Keppra and alcohol patient will remain on current dose of Keppra. Compliance addressed in detail. Patient understands the importance of Keppra. Other medications have been discontinued due to fever. Flexeril, Phenergan, Inderal were discontinued yesterday. Fever no longer present. We will continue to reassess and monitor. Likely discharge in the next 24 hours. I will reassess later today for possible discharge as early as today. Acute pancreatitis: This has resolved. Continue oral intake. Continue supplementation. Will have dietary address daily needs. Fever unknown etiology: This may be medication related. Phenergan, Flexeril discontinued. Patient without fever at this time. Continue with above plan of care. No evidence of sepsis. Diarrhea without evidence of C. difficile colitis: This appears improved. Rectal system no longer in place. No evidence of diarrhea.. C. difficile negative. Alcohol abuse with severe DTs: Patient admits drinking heavily. He plans to quit. Continue to monitor the patient closely. Continue alcohol cessation. Seizure disorder: Case discussed at length with neurology. No need to increase Keppra at this time. Continue Keppra 500 mg 1 pill twice daily. Compliance with medication address in detail. Patient has reported noncompliance as he reported some rage and anxiety with Keppra. The importance of this medication was addressed in detail. Patient understands. Depression with anxiety: Continue Cymbalta. Psychiatry did evaluate patient. He recommended continue current medication. Will provide medicationAtivan as needed. Hypertension: Adjustments made to blood pressure medication. Now on metoprolol and lisinopril. Inderal discontinued. GERD: Continue medication Obesity, BMI 41.2: Continue lifestyle modification education. MRI shows 9 mm cavernous angioma to the right frontal lobe: Continue with above recommendation. Case discussed at length with neurology. Time Spent Managing Pts Care (In Minutes): 55
[2020-11-17 10:30] VITALS: O2SAT 93
[2020-11-17 12:05] VITALS: BP 115/63; TEMP 100.1
--- NOTE | 2020-11-17 14:12 | P.DS ---
Admission Date: 11/06/20 Discharge Date: 11/17/20 Primary Care Provider: none; Pain management-Dr. Boston; Cardiology-Dr. Cheng Disposition: ROUTINE DISCHARGE Discharge Condition: GOOD Reason for Admission: Pancreatitis respiratory failure Consultations: Pulmonary-Dr. Reyez Neurology-Dr. Saunders PSYC-Dr. Espinosa Procedures: COVID: Negative CT scan: FINDINGS: Fatty liver. Pancreatic head is mildly inhomogeneous. Moderate peripancreatic stranding with ill-defined fluid in the peripancreatic fat. No pseudocyst There is no evidence of diverticulitis. Normal appendix Small umbilical hernia. Postsurgical changes involve the stomach and small bowel IMPRESSION: Moderate pancreatitis Follow up CT scan: COMPARISON: CT abdomen pelvis November 06, 2020. FINDINGS: CHEST: Lungs: Bilateral lower lobe atelectasis. Pleural space: Small left pleural effusion. No pneumothorax. Heart: Unremarkable. No cardiomegaly. No significant pericardial effusion. ABDOMEN: Liver: Enlarged fatty liver. Gallbladder and bile ducts: Unremarkable. No calcified stones. No ductal dilation. Pancreas: Pancreatic edema again noted with peripancreatic fluid extending into the paracolic gutters, increased. No pancreatic duct dilatation. Spleen: Unremarkable. No splenomegaly. Adrenals: Unremarkable. No mass. Kidneys and ureters: Unremarkable. No hydronephrosis. No solid mass. Stomach and bowel: Previous gastric surgery No bowel obstruction. Gas in the transverse colon. No mucosal thickening. PELVIS: Appendix: The visualized appendix is normal. No pericecal inflammation to suggest acute appendicitis. Bladder: Unremarkable. No mass. Reproductive: Unremarkable as visualized. CHEST, ABDOMEN and PELVIS: Intraperitoneal space: Fluid and pelvis. No free air or groundglass. Bones/joints: L5-S1 degenerative disc disease. Multilevel vertebral osteophytes in the lower thoracic spine. No acute fracture. No dislocation. Soft tissues: Unremarkable. Vasculature: Unremarkable. No aortic aneurysm. Lymph nodes: Unremarkable. No enlarged lymph nodes. Tubes, lines and devices: ET tube is 2.5 cm above the [place]. NG tube is in the proximal stomach. Bello catheter in the bladder. IMPRESSION: 1. Acute pancreatitis again noted with increased ascites. 2. Enlarged fatty liver. 3. Bilateral lower lobe atelectasis with small left pleural effusion, new. 4. Support tubes as above. 5. Additional non-emergent findings as above. MRI Brain: FINDINGS: 9 millimeter area of abnormal signal within the right frontal lobe has low signal periphery on T2 weighted sequences. It is compatible with cavernous angioma. No surrounding bleed. The ventricles are normal in caliber. Diffusion-weighted/ ADC mapping sequences do not demonstrate evidence of an acute infarction. No abnormal enhancement within the brain is seen. An extra-axial fluid collection is not noted. The hippocampal gyri are normal caliber and signal Fluid within the maxillary, ethmoid and sphenoid sinuses IMPRESSION: No acute intracranial abnormality displayed 9 millimeter cavernous angioma right frontal lobe Acute sinusitis Medical problem list: Acute respiratory failure secondary to aspiration pneumonia Acute pancreatitis Fever unknown etiology Diarrhea without evidence of C. difficile colitis Alcohol abuse with severe DTs Seizure disorder Depression with anxiety Hypertension GERD Fatty liver Obesity, BMI 41.2 MRI shows 9 mm cavernous angioma to the right frontal lobe Brief History of Present Illness: 39-year-old male with history of hypertension, anxiety, chronic pain, alcohol abuse presents emergency department for abdominal pain. Patient evaluated in the emergency department, labs significant for elevated white blood cell count 12.8 glucose 120 to AST 170 ALT 171, alk-phos 176 lipase 3139, CT demonstrates moderate pancreatitis without pseudocyst or necrosis noted abdominal ultrasound performed due to elevated LFTs as well, small amount of sludge without any other acute findings noted. Lipid panel ordered while patient was in the emergency department demonstrates triglycerides 728, cholesterol 230. Patient admitted for further evaluation and treatment. Hospital Course: Patient was admitted for abdominal pain secondary to acute pancreatitis. His condition worsened as the patient also had underlying alcohol abuse and severe withdrawal. Patient required intubation due to acute respiratory failure likely from aspiration pneumonia. His course of hospitalization was prolonged. He eventually improved. Patient was seen by multiple specialists including pulmonology, neurology and psychiatry. At discharge patient has done well. Patient without any difficulty breathing or abdominal pain. Patient had fever likely related to medication. Medications have been discontinued this includes Phenergan, Flexeril. Overall patient doing well for discharge. Recommend follow-up with his PCP in 1 week to follow-up his hospitalization. As for his acute respiratory failure and aspiration pneumonia patient was treated in the course of his stay. No need for antibiotics at this time. Patient is not septic. Patient doing well without any difficulty breathing. Patient no longer requiring oxygen. Recommend recheck chest x-ray in 2 to 4 weeks to monitor resolution. Patient may follow-up with pulmonology as an outpatient to further monitor and address. As for his acute pancreatitis this was likely alcohol related. This has resolved. No evidence of abnormality noted at this time. Patient with alcohol abuse and severe DTs. This has completely resolved as well. At discharge alcohol cessation has been addressed in detail. Patient plans to quit. Patient understands that if he continues to drink pancreatitis may flare up and patient may end up developing more severe DTs. Patient has a plan in place to quit. Patient encouraged to quit. This can be followed up by his PCP. At discharge patient will continue with folic acid 1 mg daily and thiamine 100 mg 1 pill twice daily. Patient with history of seizure disorder. This was addressed in detail by neurology. Neurology recommends to continue Keppra 500 mg 1 pill twice daily. Patient has been noncompliant in the past especially with his alcohol abuse. Al coholic and noncompliance can increase his risk for seizures. This was addressed in detail. Compliance with medication addressed in detail. Patient may follow-up with neurology as an outpatient to further monitor and address. Patient had some diarrhea during the course of his stay. Patient was C. difficile negative. Diarrhea resolved. At discharge patient may continue with lactobacillus twice daily. Patient with GERD. At discharge patient will continue with Protonix 40 mg daily. Patient with hypertension. Medications have been adjusted during the course of his stay. He will no longer take Inderal. Patient now on lisinopril 10 mg 1 pill twice daily and metoprolol 50 mg 1 pill twice daily. Patient may continue with these current medications. Recommend to maintain blood pressure less than 130/80. Further adjustment can be done by his PCP. Recommend follow-up with cardiology as directed. Patient with depression with anxiety. Patient may continue with Cymbalta 20 mg daily. Patient was seen by psychiatry. No need for adjustment in medication at this time. Patient may follow-up with psychiatry as an outpatient to further address. MRI showed 9 mm cavernous angioma to the right frontal lobe. No evidence that this is causing any harm. This was discussed in detail with neurology. Compliance with his seizure medicationKeppra is important. Compliance with alcohol cessation also addressed. Recommend follow-up with neurology to further monitor and address. Vital Signs/Physical Exam: Temp Pulse Resp BP Pulse Ox 100.1 F 99 H 18 115/63 93 11/17/20 12:00 11/17/20 12:00 11/17/20 12:00 11/17/20 12:00 11/17/20 12:00 General: Alert, In no apparent distress, Oriented x3, Cooperative HEENT: Atraumatic Neck: Supple Respiratory: Clear to auscultation bilaterally, Normal air movement Cardiovascular: Normal pulses, Regular rate/rhythm Gastrointestinal: Normal bowel sounds, Soft and benign, Non-distended, No tenderness, No masses, No rebound, No guarding Musculoskeletal: No erythema, No tenderness, No warmth Integumentary: No tenderness/swelling Neurological: Normal speech, Normal strength at 5/5 x4 extr, Normal tone, Normal affect Laboratory Data at Discharge: WBC 13.00 K/uL (4.3-10.9) H 11/17/20 04:35 Hgb 8.7 g/dL (13.6-17.9) L 11/17/20 04:35 Hct 25.8 % (39.6-49.0) L 11/17/20 04:35 Plt Count 512 K/uL (152-406) H 11/17/20 04:35 Sodium 140 mmol/L (136-145) 11/17/20 04:35 Potassium 3.7 mmol/L (3.5-5.1) 11/17/20 04:35 BUN 10 mg/dL (7-18) 11/17/20 04:35 Creatinine 0.58 mg/dL (0.55-1.3) 11/17/20 04:35 Glucose 92 mg/dL (74-106) 11/17/20 04:35 Phosphorus 3.4 mg/dL (2.5-4.9) 11/14/20 06:00 Magnesium 2.5 mg/dL (1.8-2.4) H 11/17/20 04:35 Total Bilirubin 0.4 mg/dL (0.2-1.0) 11/17/20 04:35 AST 32 U/L (15-37) 11/17/20 04:35 ALT 34 U/L (12-78) 11/17/20 04:35 Alkaline Phosphatase 68 U/L (45-117) 11/17/20 04:35 Triglycerides 225 mg/dL (<150) H 11/07/20 04:52 Cholesterol 230 mg/dL (<200) H 11/06/20 19:22 LDL Cholesterol Direct 123 mg/dL (100-129) 11/06/20 19:22 HDL Cholesterol 48 mg/dL (40-60) 11/06/20 19:22 Cholesterol/HDL Ratio 4.79 11/06/20 19:22 Lipase 254 U/L (73-393) 11/12/20 05:00 Home Medications: Hydrocodone/Acetaminophen [Hydrocodone-Acetamin 5-325 mg] 1 tab PO Q6H PRN 02/11/19 Duloxetine HCl [Cymbalta] 20 mg PO DAILY 11/13/20 Folic Acid 1 mg PO DAILY #30 tablet 11/17/20 Lactobacillus Acidophilus [Acidophilus Lactobacilli] 1 each PO BID #60 capsule 11/17/20 Levetiracetam [Keppra] 500 mg PO BID #60 tablet 11/17/20 Metoprolol Tartrate [Lopressor*] 50 mg PO BID #60 tab 11/17/20 Pantoprazole [Protonix Tab*] 40 mg PO ACB #30 tab 11/17/20 Thiamine HCl [Vitamin B-1*] 100 mg PO BID #60 tablet 11/17/20 lisinopriL [Prinivil*] 10 mg PO BID #60 tab 11/17/20 New Medications: Lactobacillus Acidophilus [Acidophilus Lactobacilli] 1 each PO BID #60 capsule Folic Acid 1 mg PO DAILY #30 tablet Levetiracetam [Keppra] 500 mg PO BID #60 tablet Metoprolol Tartrate [Lopressor*] 50 mg PO BID #60 tab lisinopriL [Prinivil*] 10 mg PO BID #60 tab Pantoprazole [Protonix Tab*] 40 mg PO ACB #30 tab Thiamine HCl [Vitamin B-1*] 100 mg PO BID #60 tablet Physician Discharge Instructions: Patient was admitted for abdominal pain secondary to acute pancreatitis. His condition worsened as the patient also had underlying alcohol abuse and severe withdrawal. Patient required intubation due to acute respiratory failure likely from aspiration pneumonia. His course of hospitalization was prolonged. He eventually improved. Patient was seen by multiple specialists including pulmonology, neurology and psychiatry. At discharge patient has done well. Patient without any difficulty breathing or abdominal pain. Patient had fever likely related to medication. Medications have been discontinued this includes Phenergan, Flexeril. Overall patient doing well for discharge. Recommend follow-up with his PCP in 1 week to follow-up his hospitalization. As for his acute respiratory failure and aspiration pneumonia patient was treated in the course of his stay. No need for antibiotics at this time. Patient is not septic. Patient doing well without any difficulty breathing. Patient no longer requiring oxygen. Recommend recheck chest x-ray in 2 to 4 we eks to monitor resolution. Patient may follow-up with pulmonology as an outpatient to further monitor and address. As for his acute pancreatitis this was likely alcohol related. This has resolved. No evidence of abnormality noted at this time. Patient with alcohol abuse and severe DTs. This has completely resolved as well. At discharge alcohol cessation has been addressed in detail. Patient plans to quit. Patient understands that if he continues to drink pancreatitis may flare up and patient may end up developing more severe DTs. Patient has a plan in place to quit. Patient encouraged to quit. This can be followed up by his PCP. At discharge patient will continue with folic acid 1 mg daily and thiamine 100 mg 1 pill twice daily. Patient with history of seizure disorder. This was addressed in detail by neurology. Neurology recommends to continue Keppra 500 mg 1 pill twice daily. Patient has been noncompliant in the past especially with his alcohol abuse. Alcoholic and noncompliance can increase his risk for seizures. This was addressed in detail. Compliance with medication addressed in detail. Patient may follow-up with neurology as an outpatient to further monitor and address. Patient had some diarrhea during the course of his stay. Patient was C. difficile negative. Diarrhea resolved. At discharge patient may continue with lactobacillus twice daily. Patient with GERD. At discharge patient will continue with Protonix 40 mg daily. Patient with hypertension. Medications have been adjusted during the course of his stay. He will no longer take Inderal. Patient now on lisinopril 10 mg 1 pill twice daily and metoprolol 50 mg 1 pill twice daily. Patient may continue with these current medications. Recommend to maintain blood pressure less than 130/80. Further adjustment can be done by his PCP. Recommend follow-up with cardiology as directed. Patient with depression with anxiety. Patient may continue with Cymbalta 20 mg daily. Patient was seen by psychiatry. No need for adjustment in medication at this time. Patient may follow-up with psychiatry as an outpatient to further address. MRI showed 9 mm cavernous angioma to the right frontal lobe. No evidence that this is causing any harm. This was discussed in detail with neurology. Compliance with his seizure medicationKeppra is important. Compliance with alcohol cessation also addressed. Recommend follow-up with neurology to further monitor and address. Diet: AHA Activity: Ad don Followup: NONE,NONE [Primary Care Provider] - Time spent managing pt's care (in minutes): 55
--- NOTE | 2020-11-18 14:22 | EEG ---
CHART: [id number] TEST ID#: [id number] DATE OF STUDY: 11/17/2020 THE EEG WAS RECORDED PORTABLE IN THE PATIENT'S ROOM ON A 17 CHANNEL MACHINE. ELECTRODES WERE APPLIED IN THE USUAL MANNER USING THE INTERNATIONAL 10-20 SYSTEM. THE WAKING BACKGROUND RHYTHM IN THIS RECORD CONSISTS OF VERY WELL DEVELOPED AND WELL ORGANIZED WAVES OF 9.5 HZ., MAXIMAL IN THE POSTERIOR HEAD REGIONS WHICH ATTENUATE NORMALLY WITH EYE OPENING. LOW-VOLTAGE 18-22 HZ ACTIVITY IS EXPRESSED IN THE FRONTAL REGIONS. THERE ARE NO FOCAL OR LATERALIZING FEATURES. NO EPILEPTIFORM ACTIVITY APPEARS. SLEEP OCCURRED NATURALLY. IN ADDITION NORMAL SLEEP PATTERNS ARE PRESENT. HYPERVENTILATION WAS NOT PERFORMED. PHOTIC STIMULATION PRODUCED POOR DRIVING BILATERALLY. IMPRESSION: NORMAL EEG FOR THE AGE OF THE PATIENT IN [place], DROWSINESS AND SLEEP.
== END 2020-11-17 16:20 | disposition home or self-care (01) | DRG 207 ==
LOC: ER 18:21 → ERHOLD 20:46 → 4TH 11-16 11:06
PROVIDERS: ADMIT Hospitalist; ATTEND Family Medicine
PROC: 5A1955Z Respiratory Ventilation, Greater than 96 Consecutive Hours (ICD-10-PCS; principal; 2020-11-07)
PROC: 0BH17EZ Insertion of Endotracheal Airway into Trachea, Via Natural or Artificial Opening (ICD-10-PCS; 2020-11-07)
PROC: 3E0336Z Introduction of Nutritional Substance into Peripheral Vein, Percutaneous Approach (ICD-10-PCS; 2020-11-10)
DX: J96.00 Acute respiratory failure, unspecified whether with hypoxia or hypercapnia (principal); K85.20 Alcohol induced acute pancreatitis without necrosis or infection; J69.0 Pneumonitis due to inhalation of food and vomit; F10.131 Alcohol abuse with withdrawal delirium; Z68.41 Body mass index [BMI] 40.0-44.9, adult; E78.1 Pure hyperglyceridemia; G89.29 Other chronic pain; I10 Essential (primary) hypertension; G40.909 Epilepsy, unspecified, not intractable, without status epilepticus; K21.9 Gastro-esophageal reflux disease without esophagitis; E66.9 Obesity, unspecified; F41.8 Other specified anxiety disorders; D18.09 Hemangioma of other sites; K76.0 Fatty (change of) liver, not elsewhere classified; T42.6X5A Adverse effect of other antiepileptic and sedative-hypnotic drugs, initial encounter; T48.1X5A Adverse effect of skeletal muscle relaxants [neuromuscular blocking agents], initial encounter; R00.0 Tachycardia, unspecified; R50.2 Drug induced fever; R19.7 Diarrhea, unspecified; R73.9 Hyperglycemia, unspecified; Z79.899 Other long term (current) drug therapy; Z98.84 Bariatric surgery status; Z91.14 Patient's other noncompliance with medication regimen; Z20.822 Contact with and (suspected) exposure to COVID-19; Z78.1 Physical restraint status
CPT/HCPCS: 36415; 70450; 70553; 71045; 71260; 74177; 76705; 80048; 80053; 80061; 80076; 80307; 81001; 82565; 82705; 82746; 82805; 82947; 83036; 83605; 83690; 83735; 83880; 84100; 84132; 84145; 84439; 84443; 84478; 84484; 85025; 87040; 87070; 87205; 87324; 87449; 93005; 94002; 94003; 95816; 95819; 96361; 96374; 96375; 97110; 97112; 97161; 99285; A9577; C9113; J0330; J0360; J0696; J1100; J1170; J1200; J1610; J1630; J1650; J1720; J1940; J1953; J2185; J2250; J2405; J2543; J2550; J2704; J3010; J3360; J3411; J3480; J7030; J7040; J7050; J7799; Q9967; U0003

== ENCOUNTER 2021-07-03 19:56 | Emergency (ER) | payer BC, SELFPAY ==
--- OUTSIDE RECORDS SUMMARY | 2021-07-03 20:02 | XMS REPORT | Continuity of Care Document ---
:1980 Author Organization [facility] t Address [address] [place] [address] Care Team Providers Name Role Phone PCP, DOES NOT HAVE A Primary Care Physician Unavailable Sneha CHAMBERLAIN, K.H. Attending Clinician Carlota HOOVER Attending Clinician Unavailable KACY Attending Clinician Unavailable KACY Admitting Clinician Unavailable Payers Payer Name Policy Type Policy Number Effective Date Expiration Date [facility] [id number] 2019 PPO 00:00:00 Problems This patient has no known problems. Allergies, Adverse Reactions, Alerts Allergy Allergy Status Severity Reaction(s) Onset Inactive Treating Comm ents Source Name Type Date Date Clinician NO KNOWN Drug Active [facility] ALLERGIE [facility] Medications This patient has no known medications. Procedures This patient has no known procedures. Encounters Start End Encounter Admission Attending Care Care Encounter Source Date/Time Date/Time Type Type Clinicians Facility Department ID 2020-04-14 2020-04-14 Telephone Sneha OKTABITHA [id number] 00:00:00 00:00:00 Royal Lopez [id number] [place] [id number] [place] [id number] nal 059 Building 2020-01-15 2020-01-15 Outpatient R SNEHA [facility] [id number] 15:30:00 15:30:00 SENDIL [facility] 2019-12-24 2019-12-25 Outpatient X KACY [facility] [id number] [employer] 17:31:30 13:45:00 ADNAN [facility] Results This patient has no known results.
[2021-07-03] MEDS ORDERED: NA CHLORIDE 0.9% 500 ML ONE (22:10)
[2021-07-03] MEDS ORDERED: MECLIZINE HCL 12.5 MG TAB ONE (22:10)
--- NOTE | 2021-07-03 22:11 | RAD REPORT ---
EXAM DESCRIPTION: RAD - Chest Single View - 07/03/2021 9:48 pm CLINICAL HISTORY: COUGH Chest pain. COMPARISON: Chest Single View dated 11/16/2020; Chest Single View dated 11/14/2020; Chest Single View dated 11/13/2020; Chest Single View dated 11/12/2020 FINDINGS: Portable technique limits examination quality. The lungs are grossly clear. The heart is normal in size. No displaced fractures. IMPRESSION: No acute intrathoracic process suspected.
--- NOTE | 2021-07-03 22:11 | RAD REPORT ---
EXAM DESCRIPTION: CT - Head Brain Wo Cont - 07/03/2021 9:39 pm CLINICAL HISTORY: DIZZINESS COMPARISON: Head Brain W/Wo Con dated 11/11/2020; Head Brain Wo Cont dated 11/08/2020Head Brain W/Wo C on dated 11/11/2020; Head Brain Wo Cont dated 11/08/2020; Brain W/Wo Cont dated 11/15/2020 TECHNIQUE: All CT scans are performed using dose optimization technique as appropriate and may inclu de automated exposure control or mA/KV adjustment according to patient size. FINDINGS: No intracranial hemorrhage, hydrocephalus or extra-axial fluid collection.Small 7-8 mm are a of increased density right frontal lobe is unchanged and previously shown representing cavernous an gioma.No areas of brain edema or evidence of midline shift. The paranasal sinuses and mastoids are clear. The calvarium is intact. IMPRESSION: No acute intracranial abnormality.
[2021-07-03 22:33] LABS: ALT/SGPT 82 U/L (12-78); AST/SGOT 56 U/L (15-37); Absolute Lymphocytes (CBC) 0.9 K/uL (0.7-4.9); Albumin 3.9 g/dL (3.4-5.0); Alkaline Phosphatase 129 U/L (45-117); BUN Blood Urea Nitrogen 12 mg/dL (7-18); Basophils % 0.7 % (0-1.3); Bicarbonate 25 mmol/L (21-32); Bilirubin Direct 0.2 mg/dL (0-0.2); Bilirubin Total 0.5 mg/dL (0.2-1.0); Glucose Level 121 mg/dL (74-106); Hematocrit 38.8 % (39.6-49.0); Lymphocytes % 11.3 % (15.3-44.8); MPV 7.6 fL (7.6-11.3); Magnesium 1.9 mg/dL (1.8-2.4); Potassium 4.1 mmol/L (3.5-5.1); Protein, Total 7.9 g/dL (6.4-8.2); Sodium Level 138 mmol/L (136-145); Troponin (Emerg Dept Use Only) < 0.02 ng/mL (0.0-0.045)
--- NOTE | 2021-07-03 22:50 | EDPHYS ---
Physician Documentation [facility] Name: Marquise Jhaveri Age: 40 yrs Sex: Male : 1980 Arrival Date: 07/03/2021 Time: 20:00 Bed 11 Private MD: Sumeet Lazar T ED Physician Adalid Capone HPI: 07/03 21:23 This 40 yrs old Male presents to ER via Ambulatory with complaints of Vertigo, etelvina Nausea. 21:23 The patient presents to the emergency department with nausea, that is mild. etelvina 21:23 Onset: The symptoms/episode began/occurred just prior to arrival. Possible causes: etelvina unknown. The symptoms are aggravated by nothing. The symptoms are alleviated by nothing. The patient presents with dizziness. Onset: The symptoms/episode began/occurred 3 hour(s) ago. Context: occurred on a street or driveway. Modifying factors: The symptoms are alleviated by nothing, the symptoms are aggravated by nothing. Associated signs and symptoms: The patient has no apparent associated signs or symptoms. Severity of symptoms: At their worst the symptoms were mild moderate in the emergency department the symptoms are unchanged. Associated signs and symptoms: The patient has no apparent associated signs or symptoms. - Immunization history:: Client reports having NOT received the Covid vaccine. - Social history:: Smoking status: Reported history of juuling and/or vaping. - Family history:: not pertinent. ROS: 21:23 Constitutional: Negative for fever, chills, and weight loss, Eyes: Negative for injury, etelvina pain, redness, and discharge, ENT: Negative for injury, pain, and discharge, Neck: Negative for injury, pain, and swelling, Cardiovascular: Negative for chest pain, palpitations, and edema, Respiratory: Negative for shortness of breath, cough, wheezing, and pleuritic chest pain, Abdomen/GI: Negative for abdominal pain, nausea, vomiting, diarrhea, and constipation, Back: Negative for injury and pain, : Negative for injury, bleeding, discharge, and swelling, MS/Extremity: Negative for injury and deformity, Skin: Negative for injury, rash, and discoloration, Neuro: Negative for headache, weakness, numbness, tingling, and seizure, Psych: Negative for depression, anxiety, suicide ideation, homicidal ideation, and hallucinations, Allergy/Immunology: Negative for hives, rash, and allergies, Endocrine: Negative for neck swelling, polydipsia, polyuria, polyphagia, and marked weight changes, Hematologic/Lymphatic: Negative for swollen nodes, abnormal bleeding, and unusual bruising. Exam: 21:23 Constitutional: This is a well developed, well nourished patient who is awake, alert, etelvina and in no acute distress. Head/Face: Normocephalic, atraumatic. Eyes: Pupils equal round and reactive to light, extra-ocular motions intact. Lids and lashes normal. Conjunctiva and sclera are non-icteric and not injected. Cornea within normal limits. Periorbital areas with no swelling, redness, or edema. ENT: Nares patent. No nasal discharge, no septal abnormalities noted. Tympanic membranes are normal and external auditory canals are clear. Oropharynx with no redness, swelling, or masses, exudates, or evidence of obstruction, uvula midline. Mucous membranes moist. Neck: Trachea midline, no thyromegaly or masses palpated, and no cervical lymphadenopathy. Supple, full range of motion without nuchal rigidity, or vertebral point tenderness. No Meningismus. Chest/axilla: Normal chest wall appearance and motion. Nontender with no deformity. No lesions are appreciated. Cardiovascular: Regular rate and rhythm with a normal S1 and S2. No gallops, murmurs, or rubs. Normal PMI, no JVD. No pulse deficits. Respiratory: Lungs have equal breath sounds bilaterally, clear to auscultation and percussion. No rales, rhonchi or wheezes noted. No increased work of breathing, no retractions or nasal flaring. Abdomen/GI: Soft, non-tender, with normal bowel sounds. No distension or tympany. No guarding or rebound. No evidence of tenderness throughout. Back: No spinal tenderness. No costovertebral tenderness. Full range of motion. Skin: Warm, dry with normal turgor. Normal color with no rashes, no lesions, and no evidence of cellulitis. MS/ Extremity: Pulses equal, no cyanosis. Neurovascular intact. Full, normal range of motion. Neuro: Awake and alert, GCS 15, oriented to person, place, time, and situation. Cranial nerves II-XII grossly intact. Motor strength 5/5 in all extremities. Sensory grossly intact. Cerebellar exam normal. Normal gait. Psych: Awake, alert, with orientation to person, place and time. Behavior, mood, and affect are within normal limits. 21:53 ECG was reviewed by the Attending Physician. [facility] Vital Signs: 20:10 BP 155 / 98; Pulse 81; Resp 22; Temp 98.1; Pulse Ox 100% on R/A; Weight 122.47 kg; da3 Height 6 ft. 0 in. (182.88 cm); 22:07 BP 159 / 93; Pulse 90; Resp 20; Pulse Ox 100% ; vg1 23:05 BP 152 / 94; Pulse 86; Resp 16 S; Pulse Ox 100% on R/A; bb 20:10 Body Mass Index 36.62 (122.47 kg, 182.88 cm) da3 MDM: 21:03 Patient medically screened. etelvina 21:25 Differential diagnosis: CVA, generalized weakness, hypovolemia, idiopathic dizziness, etelvina vertigo. Data reviewed: vital signs, nurses notes, lab test result(s), EKG, radiologic studies, CT scan, plain films. Data interpreted: monitor car operator: rate is 81 beats/min, rhythm is regular, Pulse oximetry: on room air is 100 %. Test interpretation: by ED physician or midlevel provider: ECG, plain radiologic studies. Counseling: I had a detailed discussion with the patient and/or guardian regarding: the historical points, exam findings, and any diagnostic results supporting the discharge/admit diagnosis, lab results, radiology results. 07/03 21:22 Order name: Basic Metabolic Panel; Complete Time: 22:49 [facility] 07/03 21:22 Order name: CBC with Diff; Complete Time: 22:49 [facility] 07/03 21:22 Order name: LFT's; Complete Time: 22:49 [facility] 07/03 21:22 Order name: Magnesium; Complete Time: 22:49 [facility] 07/03 21:22 Order name: Troponin (emerg Dept Use Only); Complete Time: 22:49 [facility] 07/03 21:22 Order name: XRAY Chest (1 view); Complete Time: 22:35 [facility] 07/03 21:22 Order name: EKG; Complete Time: 21:23 [facility] 07/03 21:22 Order name: Cardiac monitoring; Complete Time: 21:53 [facility] 07/03 21:22 Order name: EKG - Nurse/Tech; Complete Time: 21:53 [facility] 07/03 21:22 Order name: IV Saline Lock; Complete Time: 22:07 [facility] 07/03 21:22 Order name: Labs collected and sent; Complete Time: 22:07 [facility] 07/03 21:22 Order name: CT Head Brain wo Cont; Complete Time: 22:35 [facility] 07/03 21:22 Order name: O2 Per Protocol; Complete Time: 21:29 [facility] 07/03 21:22 Order name: O2 Sat Monitoring; Complete Time: 21:29 [facility] EC:53 Rate is 77 beats/min. Rhythm is regular. QRS On[place] is Normal. [place] interval is normal. QRS etelvina interval is normal. QT interval is normal. No Q waves. T waves are Normal. No ST changes noted. Clinical impression: Normal ECG and No evidence of ischemia. Interpreted by me. Reviewed by me. Administered Medications: 22:12 Drug: NS 0.9% 500 ml Route: IV; Rate: bolus; Site: right antecubital; vg1 22:52 Follow up: IV Status: Completed infusion; IV Intake: 500ml bb 22:16 Drug: Meclizine 50 mg Route: PO; vg1 22:53 Follow up: Response: No adverse reaction bb Disposition Summary: 07/03/21 22:49 Discharge Ordered Location: Home etelvina Problem: new etelvina Symptoms: have improved etelvina Condition: Stable etelvina Diagnosis - Benign paroxysmal vertigo etelvina Followup: etelvina - With: - When: 2 - 3 days - Reason: Recheck today's complaints, Continuance of care, Re-evaluation by your physician Followup: etelvina - With: - When: 2 - 3 days - Reason: Recheck today's complaints, Re-evaluation by your physician Discharge Instructions: - Discharge Summary Sheet etelvina - Benign Positional Vertigo etelvina - Alcohol Use Disorder etelvina - Vertigo etelvina - Alcohol Abuse and Nutrition etelvina - Tobacco Use Disorder etelvina Forms: - Medication Reconciliation Form etelvina - Thank You Letter etelvina - Antibiotic Education etelvina - Prescription Opioid Use etelvina Prescriptions: - Meclizine 25 mg Oral Tablet - take 1 tablet by ORAL route every 8 hours As needed; 30 tablet; Refills: 0, etelvina Product Selection Permitted - Zofran 4 mg Oral Tablet - take 1 tablet by ORAL route every 12 hours As needed; 20 tablet; Refills: 0, etelvina Product Selection Permitted Signatures: Dispatcher [employer] Adalid Gillespie MD MD cha Garcia, Victoria RN RN vg1 Sumeet Gaines RN RN da3 Lou Song RN bb
--- NOTE | 2021-07-03 22:50 | ER ---
Nurse's Notes [facility] Name: Marquise Jhaveri Age: 40 yrs Sex: Male : 1980 Arrival Date: 07/03/2021 Time: 20:00 Bed 11 Private MD: Sumeet Lazar T Diagnosis: Benign paroxysmal vertigo Presentation: 07/03 20:10 Chief complaint: Patient states: dizziness, head pressure. Coronavirus screen: Vaccine da3 status: Patient reports being unvaccinated. Ebola Screen: No symptoms or risks identified at this time. Initial Sepsis Screen: Does the patient meet any 2 criteria? No. Patient's initial sepsis screen is negative. Does the patient have a suspected source of infection? No. Patient's initial sepsis screen is negative. Risk Assessment: Do you want to hurt yourself or someone else? Patient reports no desire to harm self or others. Onset of symptoms was July 03, 2021. 20:10 Method Of Arrival: Ambulatory da3 20:10 Acuity: ARNULFO 3 da3 Triage Assessment: 20:10 General: Appears uncomfortable, Behavior is calm, cooperative. Pain: Denies pain. GI: da3 No deficits noted. - Immunization history:: Client reports having NOT received the Covid vaccine. - Social history:: Smoking status: Reported history of juuling and/or vaping. - Family history:: not pertinent. Screenin:03 Abuse screen: Denies threats or abuse. Nutritional screening: No deficits noted. bb Tuberculosis screening: No symptoms or risk factors identified. Fall Risk None identified. Assessment: 23:03 General: Appears in no apparent distress. Behavior is calm, cooperative, pt seen by scott this RN at discharge. Pain: Denies pain. Neuro: Level of Consciousness is awake, alert, obeys commands, Oriented to person, place, time, situation. Cardiovascular: Capillary refill < 3 seconds Patient's skin is warm and dry. Respiratory: Airway is patent Respiratory effort is even, unlabored, Respiratory pattern is regular. GI: Abdomen is obese. Derm: Skin is pink, warm \T\ dry. Musculoskeletal: Circulation, motion, and sensation intact. 23:05 Reassessment: Patient is alert, oriented x 3, equal unlabored respirations, skin bb warm/dry/pink. pt verbalized understanding of and agrees to plan of care discharge instructions given pt ambulated with steady gait to exit. Vital Signs: 20:10 BP 155 / 98; Pulse 81; Resp 22; Temp 98.1; Pulse Ox 100% on R/A; Weight 122.47 kg; da3 Height 6 ft. 0 in. (182.88 cm); 22:07 BP 159 / 93; Pulse 90; Resp 20; Pulse Ox 100% ; vg1 23:05 BP 152 / 94; Pulse 86; Resp 16 S; Pulse Ox 100% on R/A; bb 20:10 Body Mass Index 36.62 (122.47 kg, 182.88 cm) da3 ED Course: 20:00 Patient arrived in ED. es 20:01 Sumeet Lazar MD is Private Physician. es 20:10 Arm band placed on left wrist. da3 20:13 Triage completed. da3 21:03 Adalid Capone MD is Attending Physician. etelvina 21:38 CT Head Brain wo Cont In Process Unspecified. EDMS 21:48 XRAY Chest (1 view) In Process Unspecified. EDMS 22:03 Initial lab(s) drawn, by ms, sent to lab. Inserted saline lock: 20 gauge in right vg1 antecubital area, using aseptic technique. Blood collected. 22:49 Sumeet Lazar MD is Referral Physician. etelvina 22:49 Isael Saunders MD is Referral Physician. etelvina 23:03 Patient has correct armband on for positive identification. bb 23:03 No provider procedures requiring assistance completed. IV discontinued, intact, bb bleeding controlled, No redness/swelling at site. Pressure dressing applied. Administered Medications: 22:12 Drug: NS 0.9% 500 ml Route: IV; Rate: bolus; Site: right antecubital; vg1 22:52 Follow up: IV Status: Completed infusion; IV Intake: 500ml bb 22:16 Drug: Meclizine 50 mg Route: PO; vg1 22:53 Follow up: Response: No adverse reaction bb Intake: 22:52 IV: 500ml; Total: 500ml. bb Outcome: 22:49 Discharge ordered by . etelvina 23:05 Discharged to home bb 23:05 Condition: stable 23:05 Discharge instructions given to patient, Instructed on discharge instructions, follow up and referral plans. medication usage, Demonstrated understanding of instructions, follow-up care, medications, Prescriptions given X 2. 23:06 Patient left the ED. bb Signatures: Dispatcher [employer] Adalid Gillespie MD MD cha Salyer, Edna es Ballard, Brenda RN RN bb Janet Montoya RN RN vg1 Sumeet Gaines RN RN da3
[2021-07-04 00:26] VITALS: TEMP 98.1; O2SAT 100
[2021-07-04 00:29] VITALS: BP 152/94
--- NOTE | 2021-07-04 12:27 | EKG ---
Test Date: 2021-07-03 Test Time: 21:48:06 Die Machine Operator: REINALDO MEASUREMENT RESULTS: Intervals: Rate: 77 CO: 124 QRSD: 88 QT: 358 QTc: 405 [place]: P: 34 CO: 124 QRS: 18 T: 13 INTERPRETIVE STATEMENTS: Normal sinus rhythm Normal ECG Compared to ECG 11/07/2020 03:53:01 Sinus tachycardia no longer present Electronically Signed On 07-04-21 12:25:45 LEAD SPRINKLER by Mynor Brennan
== END 2021-07-03 23:06 | disposition home or self-care (01) ==
LOC: ER 19:56
DX: H81.10 Benign paroxysmal vertigo, unspecified ear (principal)
CPT/HCPCS: 36415; 70450; 71045; 80048; 80076; 83735; 84484; 85025; 93005; 96360; 99284; J7040; J8597

== ENCOUNTER 2021-08-03 02:08 | Emergency (ER) | payer SELFPAY ==
--- OUTSIDE RECORDS SUMMARY | 2021-08-03 02:10 | XMS REPORT | Continuity of Care Document ---
:1980 Author Organization [facility] t Address [address] [place] [address] Care Team Providers Name Role Phone PCP, DOES NOT HAVE A Primary Care Physician Unavailable Sneha CHAMBERLAIN, K.H. Attending Clinician Carlota HOOVER Attending Clinician Unavailable KACY Attending Clinician Unavailable KACY Admitting Clinician Unavailable Payers Payer Name Policy Type Policy Number Effective Date Expiration Date [facility] [id number] 2019 PPO 00:00:00 Problems This patient has no known problems. Allergies, Adverse Reactions, Alerts Allergy Allergy Status Severity Reaction(s) Onset Inactive Treating Comm ents Source Name Type Date Date Clinician NO KNOWN [facility] Medications This patient has no known medications. Procedures This patient has no known procedures. Encounters Start End Encounter Admission Attending Care Care Encounter Source Date/Time Date/Time Type Type Clinicians Facility Department ID 2020-04-14 2020-04-14 Telephone GIGI Hoover [id number] 00:00:00 00:00:00 Royal Lopez [id number] [place] [id number] [facility]ly [facility] [id number] nal 059 Building 2020-01-15 2020-01-15 Outpatient R SNEHA [facility] [id number] Univers 15:30:00 15:30:00 ROYAL [facility] 2019-12-24 2019-12-25 Outpatient X KACY [facility] [id number] [facility] 17:31:30 13:45:00 DONELL [facility] Results This patient has no known results.
[2021-08-03] MEDS ORDERED: NA CHLORIDE 0.9% 1,000 ML ONE (02:42)
[2021-08-03] MEDS ORDERED: LORazepam 2 MG/ML VIAL ONE (02:42)
[2021-08-03 03:09] LABS: Hematocrit 42.6 % (39.6-49.0); MPV 7.3 fL (7.6-11.3); RBC Red Blood Cell Count 5.08 M/uL (4.33-5.43)
[2021-08-03 03:26] LABS: BUN Blood Urea Nitrogen 8 mg/dL (7-18); Bicarbonate 25 mmol/L (21-32); Glucose Level 136 mg/dL (74-106); Potassium 3.7 mmol/L (3.5-5.1); Sodium Level 135 mmol/L (136-145)
[2021-08-03 03:56] LABS: SARS-COV-2 RT PCR NEGATIVE (NEGATIVE)
--- NOTE | 2021-08-03 04:20 | ER ---
Nurse's Notes [facility] Name: Marquise Jhaveri Age: 40 yrs Sex: Male : 1980 Arrival Date: 08/03/2021 Time: 02:09 Bed 7 Private MD: Diagnosis: Alcohol dependence with withdrawal Presentation: 08/03 02:27 Chief complaint: Patient states: that he has been having chest pain that is "sharp and sm5 hot" for 3 days now and sometimes goes into his L wrist and L shoulder. took extra doses of his metoprolol and lisinopril to see if that would help, as well as took benadryl to see if it would calm him down. pt also states he may be withdrawing from alcohol as he "hit the liquor hard on and " drank 3-4 small bottles of wine earlier this evening. Coronavirus screen: Vaccine status: Patient reports being unvaccinated. Ebola Screen: No symptoms or risks identified at this time. Initial Sepsis Screen: Does the patient meet any 2 criteria? HR > 90 bpm. No. Patient's initial sepsis screen is negative. Does the patient have a suspected source of infection? No. Patient's initial sepsis screen is negative. Risk Assessment: Do you want to hurt yourself or someone else? Patient reports no desire to harm self or others. Onset of symptoms was July 31, 2021. 02:27 Method Of Arrival: Ambulatory [facility] 02:27 Acuity: ARNULFO 3 sm5 Triage Assessment: 02:35 General: Appears in no apparent distress. Behavior is appropriate for age. Pain: 5 Complains of pain in chest Quality of pain is described as sharp, hot. Neuro: No deficits noted. Level of Consciousness is awake, alert, Oriented to person, place, time, situation. Cardiovascular: Reports chest pain, Capillary refill < 3 seconds diaphoretic. Respiratory: Reports shortness of breath Airway is patent Trachea midline Respiratory effort is even, unlabored, Onset: The symptoms/episode began/occurred today, the patient has mild shortness of breath. Historical: - Allergies: 02:29 No Known Allergies; sm5 - Home Meds: 02:29 Flexeril Oral [Active]; Hydrocodone-Acetaminophen Oral [Active]; lisinopril 20 mg Oral sm5 tab twice a day [Active]; metoprolol tartrate 50 mg Oral tab 1 tab 2 times per day [Active]; famotidine Oral [Active]; - PMHx: 02:29 Anxiety; gastric bypass; Hypertension; Herniated discs; sm5 - Immunization history:: Client reports having NOT received the Covid vaccine. - Social history:: Smoking status: Reported history of juuling and/or vaping. Patient uses alcohol, on a daily basis. Screenin:31 Abuse screen: Denies threats or abuse. Denies injuries from another. Nutritional sm5 screening: No deficits noted. Tuberculosis screening: No symptoms or risk factors identified. Fall Risk No fall in past 12 months (0 pts). No secondary diagnosis (0 pts). IV access (20 points). Ambulatory Aid- None/Bed Rest/Nurse Assist (0 pts). Gait- Normal/Bed Rest/Wheelchair (0 pts) Mental Status- Oriented to own ability (0 pts). Total Perla Fall Scale indicates No Risk (0-24 pts). Assessment: 02:36 Cardiovascular: Reports chest pain, Capillary refill < 3 seconds Rhythm is sinus 5 rhythm. Respiratory: Airway is patent Trachea midline Respiratory effort is even, unlabored, Breath sounds are clear bilaterally. Vital Signs: 02:27 BP 169 / 111; Pulse 97; Resp 21; Temp 98.8(O); Pulse Ox 99% on R/A; Weight 124.74 kg; sm5 Height 6 ft. 0 in. (182.88 cm); Pain 6/10; 04:29 BP 140 / 87; Pulse 87; Resp 18; Pulse Ox 100% ; sm5 02:27 Body Mass Index 37.30 (124.74 kg, 182.88 cm) 5 ED Course: 02:09 Patient arrived in ED. bp1 02:17 Silvana Portillo MD is Attending Physician. sp3 02:27 Cristel Mclaughlin, ANAHY is Primary Nurse. sm5 02:29 Triage completed. sm5 02:32 Arm band placed on right wrist. EKG completed in triage. Results shown to MD. sm5 02:34 Patient has correct armband on for positive identification. Placed in gown. Bed in low sm5 position. Call light in reach. Side rails up X2. site monitor on. Pulse ox on. NIBP on. 02:36 No provider procedures requiring assistance completed. sm5 02:53 CBC w/o diff Sent. sm5 02:53 Chem 7 Sent. sm5 02:53 Troponin High Sensitivity Sent. sm5 02:59 Chest Pa And Lat (2 Views) XRAY In Process Unspecified. EDMS 04:29 IV discontinued, intact, bleeding controlled, No redness/swelling at site. Pressure sm5 dressing applied. Administered Medications: 03:00 Drug: Ativan (LORazepam) 2 mg Route: IVP; Site: right antecubital; sm5 03:00 Drug: NS 0.9% 1000 ml Route: IV; Rate: 1 bolus; Site: right antecubital; 5 Outcome: 04:19 Discharge ordered by . sp3 04:29 Discharged to home ambulatory. sm5 04:29 Condition: stable 04:29 Discharge instructions given to patient, Instructed on discharge instructions, follow up and referral plans. Demonstrated understanding of instructions, follow-up care. 04:30 Patient left the ED. 5 Signatures: Dispatcher [employer] EDIN Neha Burgess Setul, MD MD sp3 Cristel Mclaughlin, RN RN sm5
--- NOTE | 2021-08-03 04:20 | EDPHYS ---
Physician Documentation [facility] Name: Marquise Jhaveri Age: 40 yrs Sex: Male : 1980 Arrival Date: 08/03/2021 Time: 02:09 Bed 7 Private MD: ED Physician Silvana Portillo HPI: 08/03 02:49 This 40 yrs old Male presents to ER via Ambulatory with complaints of sp3 Shortness Of Breath, Chest Pain > 30 y/o. 02:49 40-year-old male with history of hypertension, gastritis, gastric bypass, alcoholism sp3 presents to the ED today for alcohol withdrawal, chest pain, mild shortness of breath. Patient also had a positive COVID-19 contact 3 to 4 days ago. Patient symptoms started over the last 24 hours and his last drink was approximately 3 days ago without other friend. Patient states that he has had increased stressors in his life including his marriage, children, job loss which has led him to have increased amounts of alcohol consumption over the last 3 weeks during the holidays. Patient denies headache, neck pain, back pain, abdominal pain, nausea, vomiting, diarrhea, syncope, near syncope, neurological symptoms, rash, extremity pain, any other findings on ROS at this time. He does have diaphoresis and states that these are the symptoms he gets when he withdraws. Patient has never had delirium tremens.. Historical: - Allergies: 02:29 No Known Allergies; sm5 - Home Meds: 02:29 Flexeril Oral [Active]; Hydrocodone-Acetaminophen Oral [Active]; lisinopril 20 mg Oral sm5 tab twice a day [Active]; metoprolol tartrate 50 mg Oral tab 1 tab 2 times per day [Active]; famotidine Oral [Active]; - PMHx: 02:29 Anxiety; gastric bypass; Hypertension; Herniated discs; sm5 - Immunization history:: Client reports having NOT received the Covid vaccine. - Social history:: Smoking status: Reported history of juuling and/or vaping. Patient uses alcohol, on a daily basis. ROS: 02:51 Constitutional: Negative for fever, chills, and weight loss, Eyes: Negative for injury, sp3 pain, redness, and discharge, ENT: Negative for injury, pain, and discharge, Neck: Negative for injury, pain, and swelling, Abdomen/GI: Negative for abdominal pain, nausea, vomiting, diarrhea, and constipation, Back: Negative for injury and pain, MS/Extremity: Negative for injury and deformity, Skin: Negative for injury, rash, and discoloration, Neuro: Negative for headache, weakness, numbness, tingling, and seizure, Psych: Negative for depression, anxiety, suicide ideation, homicidal ideation, and hallucinations, Allergy/Immunology: Negative for hives, rash, and allergies, Endocrine: Negative for neck swelling, polydipsia, polyuria, polyphagia, and marked weight changes. 02:51 All other systems are negative. Exam: 02:52 Constitutional: This is a well developed, well nourished patient who is awake, alert, sp3 and in no acute distress. Head/Face: Normocephalic, atraumatic. Eyes: Pupils equal round and reactive to light, extra-ocular motions intact. Lids and lashes normal. Conjunctiva and sclera are non-icteric and not injected. Cornea within normal limits. Periorbital areas with no swelling, redness, or edema. ENT: Nares patent. No nasal discharge, no septal abnormalities noted. External auditory canals are clear. Oropharynx with no redness, swelling, or masses, exudates, or evidence of obstruction, uvula midline. Mucous membranes moist. Neck: Trachea midline, no thyromegaly or masses palpated, and no cervical lymphadenopathy. Supple, full range of motion without nuchal rigidity, or vertebral point tenderness. No Meningismus. Chest/axilla: Normal chest wall appearance and motion. Nontender with no deformity. No lesions are appreciated. Cardiovascular: Regular rate and rhythm with a normal S1 and S2. No gallops, murmurs, or rubs. Normal PMI, no JVD. No pulse deficits. Respiratory: Lungs have equal breath sounds bilaterally, clear to auscultation and percussion. No rales, rhonchi or wheezes noted. No increased work of breathing, no retractions or nasal flaring. Abdomen/GI: Soft, non-tender, with normal bowel sounds. No distension or tympany. No guarding or rebound. No evidence of tenderness throughout. Back: No spinal tenderness. No costovertebral tenderness. Full range of motion. Skin: Warm, dry with normal turgor. Normal color with no rashes, no lesions, and no evidence of cellulitis. MS/ Extremity: Pulses equal, no cyanosis. Neurovascular intact. Full, normal range of motion. Neuro: Awake and alert, GCS 15, oriented to person, place, time, and situation. Cranial nerves II-XII grossly intact. Motor strength 5/5 in all extremities. Sensory grossly intact. Cerebellar exam normal. Normal gait. Psych: Awake, alert, with orientation to person, place and time. Behavior, mood, and affect are within normal limits. 02:52 Constitutional: The patient appears diaphoretic. 03:01 ECG was reviewed by the Attending Physician. EKG demonstrates normal sinus rhythm at 90 sp3 bpm with normal intervals, normal QRS, normal axis, normal ST/T segments without evidence of acute ischemia other than an isolated inverted T wave in lead III. Mild J-point elevation is noted in lead V2. Vital Signs: 02:27 BP 169 / 111; Pulse 97; Resp 21; Temp 98.8(O); Pulse Ox 99% on R/A; Weight 124.74 kg; 5 Height 6 ft. 0 in. (182.88 cm); Pain 6/10; 04:29 BP 140 / 87; Pulse 87; Resp 18; Pulse Ox 100% ; sm5 02:27 Body Mass Index 37.30 (124.74 kg, 182.88 cm) 5 MDM: 02:46 Patient medically screened. sp3 02:52 Data reviewed: vital signs, nurses notes. ED course: 32-year-old male with likely sp3 alcohol withdrawal. We will check 1 troponin, chest x-ray, routine labs, COVID-19 test, and administer Ativan IV and normal saline 1 L. If work-up is negative will discharge patient home with alcoholism resources. Patient did say he had numerous reasons to live including his 2 children. Patient is not suicidal, homicidal, psychotic, or currently depressed.. 04:19 ED course: COVID-19 test is negative and work-up is negative as well. Will discharge sp3 patient home at this time.. 08/03 02:14 Order name: COVID-19/FLU A+B (Document "Date of Onset" if Symptomatic); Complete Time: mw2 04:17 08/03 02:49 Order name: CBC w/o diff; Complete Time: 03:52 sp3 08/03 02:14 Order name: Chest Pa And Lat (2 Views) XRAY mw2 08/03 02:49 Order name: Chem 7; Complete Time: 03:52 sp3 08/03 02:49 Order name: Troponin High Sensitivity; Complete Time: 03:52 sp3 08/03 02:31 Order name: EKG - Nurse/Tech; Complete Time: 02:39 sp3 Administered Medications: 03:00 Drug: Ativan (LORazepam) 2 mg Route: IVP; Site: right antecubital; sm5 03:00 Drug: NS 0.9% 1000 ml Route: IV; Rate: 1 bolus; Site: right antecubital; sm5 Disposition Summary: 08/03/21 04:19 Discharge Ordered Location: Home sp3 Condition: Stable sp3 Diagnosis - Alcohol dependence with withdrawal sp3 Followup: sp3 - With: Private Physician - When: Upon discharge from the Emergency Department - Reason: Continuance of care Discharge Instructions: - Discharge Summary Sheet sp3 - Alcohol Withdrawal Syndrome sp3 Forms: - Medication Reconciliation Form sp3 - Thank You Letter sp3 - Antibiotic Education sp3 - Prescription Opioid Use sp3 Signatures: Dispatcher [employer] EDSilvana Deutsch MD MD sp3 Cristel Mclaughlin RN RN sm5
[2021-08-03 04:35] VITALS: TEMP 98.8
[2021-08-03 04:37] VITALS: BP 140/87; O2SAT 100
--- NOTE | 2021-08-03 10:05 | RAD REPORT ---
EXAM DESCRIPTION: RAD - Chest Pa And Lat (2 Views) - 08/03/2021 2:59 am CLINICAL HISTORY: CHEST PAIN Chest pain. COMPARISON: Chest Single View dated 07/03/2021; Chest Single View dated 11/16/2020; Chest Single View dated 11/14/2020; Chest Single View dated 11/13/2020 FINDINGS: The lungs are clear. The heart is normal in size. No displaced fractures. IMPRESSION: No acute or concerning finding suspected.
== END 2021-08-03 04:30 | disposition home or self-care (01) ==
LOC: ER 02:08
DX: F10.239 Alcohol dependence with withdrawal, unspecified (principal); I10 Essential (primary) hypertension; Z98.84 Bariatric surgery status; Z20.822 Contact with and (suspected) exposure to COVID-19
CPT/HCPCS: 0240U; 36415; 71046; 80048; 84484; 85027; 93005; 96374; 99284; J7030

== ENCOUNTER 2021-09-07 09:14 | Emergency (ER) | payer SELFPAY ==
--- OUTSIDE RECORDS SUMMARY | 2021-09-07 09:18 | XMS REPORT | Continuity of Care Document ---
:1980 Author Organization [facility] t Address [address] [place] [address] [address] [place] [address] Care Team Providers Name Role Phone PCP, DOES NOT HAVE A Primary Care Physician Unavailable Sneha CHAMBERLAIN, K.H. Attending Clinician Carlota HOOVER Attending Clinician Unavailable KACY Attending Clinician Unavailable KACY Admitting Clinician Unavailable Payers Payer Name Policy Type Policy Number Effective Date Expiration Date [facility] [id number] 2019 PPO 00:00:00 Problems This patient has no known problems. Allergies, Adverse Reactions, Alerts Allergy Allergy Status Severity Reaction(s) Onset Inactive Treating Comm ents Source Name Type Date Date Clinician NO KNOWN Drug [facility]ations This patient has no known medications. Procedures This patient has no known procedures. Encounters Start End Encounter Admission Attending Care Care Encounter Source Date/Time Date/Time Type Type Clinicians Facility Department ID 2020-04-14 2020-04-14 Telephone Sneha [facility] [id number] 00:00:00 00:00:00 Royal Lopez [id number] Edgardo [id number] esstuyet [id number] nal 059 Building 2020-01-15 2020-01-15 Outpatient R SNEHA [facility] [id number] Univers 15:30:00 15:30:00 ROYAL [facility] 2019-12-24 2019-12-25 Outpatient X KACY [facility] [id number] [facility] 17:31:30 13:45:00 DONELL [facility] Results This patient has no known results.
[2021-09-07 10:24] LABS: Urine Blood Negative (Negative); Urine Glucose Negative (Negative); Urine Protein Negative (Negative); Urine Specific Gravity <=1.005 (1.005-1.030)
[2021-09-07 10:25] LABS: Absolute Lymphocytes (CBC) 0.4 K/uL (0.7-4.9); Lymphocytes % 4.8 % (15.3-44.8); MPV 6.9 fL (7.6-11.3); RBC Red Blood Cell Count 4.51 M/uL (4.33-5.43)
[2021-09-07 10:26] LABS: Protime INR 1.07
[2021-09-07 10:41] LABS: Barbiturates NEGATIVE (NEGATIVE); Benzodiazepines NEGATIVE (NEGATIVE); Cocaine NEGATIVE (NEGATIVE); METHAMPHETAM NEGATIVE (NEGATIVE); Methadone NEGATIVE (NEGATIVE); Opiates POSITIVE (NEGATIVE); Phencyclidine NEGATIVE (NEGATIVE); THC Cannibis NEGATIVE (NEGATIVE)
[2021-09-07] MEDS ORDERED: LORazepam 2 MG/ML VIAL ONE ×2 (10:42→12:30)
[2021-09-07 10:52] LABS: ALT/SGPT 106 U/L (12-78); AST/SGOT 114 U/L (15-37); Alkaline Phosphatase 147 U/L (45-117); BUN Blood Urea Nitrogen 10 mg/dL (7-18); Bicarbonate 24 mmol/L (21-32); Bilirubin Direct 0.2 mg/dL (0-0.2); Bilirubin Total 0.7 mg/dL (0.2-1.0); Glucose Level 116 mg/dL (74-106); Lipase 108 U/L (73-393); Magnesium 1.7 mg/dL (1.8-2.4); NT PRO-BNP 29 pg/mL (<125); Potassium 4.7 mmol/L (3.5-5.1); Sodium Level 129 mmol/L (136-145)
[2021-09-07 10:57] LABS: Blood Morphology Comment NOT SEEN (NOT SEEN); Platelet Estimate ADEQ
[2021-09-07] MEDS ORDERED: FOLIC ACID 1 MG, THIAMINE HCL 100 MG, MULTIVITAMINS INJ 10 ML in NA CHLORIDE 0.9% 1,000 ML IV ONE (11:00)
--- NOTE | 2021-09-07 11:04 | RAD REPORT ---
EXAM DESCRIPTION: RAD - Chest Single View - 09/07/2021 10:57 am CLINICAL HISTORY: CHEST PAIN COMPARISON: Chest Pa And Lat (2 Views) dated 08/03/2021; Chest Single View dated 07/03/2021; Chest Si ngle View dated 11/16/2020; Chest Single View dated 11/14/2020 FINDINGS: Lines: None. Lungs: No evidence of edema or pneumonia. Pleural: No significant pleural effusions or pneumothorax. Cardiac: The heart size is within normal limits. Bones: No acute fractures. Other: IMPRESSION: No acute cardiopulmonary disease.
[2021-09-07] MEDS ORDERED: MORPHINE 4 MG/ML SYR ONE (11:23)
[2021-09-07] MEDS ORDERED: ONDANSETRON 4 MG/2 ML VIAL ONE (11:23)
--- NOTE | 2021-09-07 11:50 | RAD REPORT ---
EXAM DESCRIPTION: CTAbdomen Pelvis W Contrast - 09/07/2021 11:32 am CLINICAL HISTORY: ABD PAIN COMPARISON: Abdomen Pelvis W Contrast dated 11/11/2020; Abdomen Pelvis W Contrast dated 11/06/2020 TECHNIQUE: CT of the abdomen and pelvis was performed. All CT scans are performed using dose optimization technique as appropriate and may include automated exposure control or mA/KV adjustment according to patient size. FINDINGS: Lower chest: No acute abnormality. Liver: Hepatic steatosis. Biliary: No biliary ductal dilatation. Stomach: Status post Don-en-Y gastric bypass. Duodenum: No significant focal abnormality. Pancreas: Interval formation of a large pancreatic pseudocyst at the tail of the pancreas measuring 1 1.9 cm. A smaller collection is present along the pancreatic body measuring 3 cm. 2.9 cm collection a long the pancreatic head anteriorly. Atrophic pancreas. Spleen: No significant abnormality. Adrenal: No suspicious lesions. Kidney/ureter: No hydronephrosis. No renal calculi. Retroperitoneum: No retroperitoneal adenopathy. Vascular: No aneurysm. Probable splenic Bowel: No significant focal abnormality. Normal appendix. Peritoneum: No ascites or free air. Bladder: Grossly unremarkable. Reproductive: No adnexal masses. Bones: No acute fracture. Other: n/a IMPRESSION: New loculated fluid collections along the pancreas, the largest measuring 11.9 cm consis tent with pseudocysts.
[2021-09-07] MEDS ORDERED: NA CHLORIDE 0.9% 1,000 ML ONE ×2 (12:31→15:39)
[2021-09-07] MEDS ORDERED: FENTANYL CITR 100 MCG/2 ML ONE (13:14)
[2021-09-07] MEDS ORDERED: METOPROLOL XL 50 MG TAB PO ONE (14:38)
[2021-09-07] MEDS ORDERED: METOPROLOL TARTRATE 5 MG/5 ML INJ IV ONE ×2 (14:38→15:39)
--- NOTE | 2021-09-07 17:05 | EDPHYS ---
Physician Documentation [facility] Name: Marquise Jhaveri Age: 40 yrs Sex: Male : 1980 Arrival Date: 09/07/2021 Time: 09:16 Bed 5 Private MD: Sumeet Lazar T ED Physician Roberto River HPI: 09/07 10:21 This 40 yrs old Male presents to ER via Ambulatory with complaints of pm1 Vomiting/Diarrhea, Abdominal Pain, Shortness Of Breath. 10:21 The patient presents to the emergency department with nausea, vomiting, 2 times since pm1 last night, abdominal pain, of the left upper quadrant, described as achy, and does not radiate. Onset: The symptoms/episode began/occurred 1 month(s) ago. Possible causes: Patient drinks 1.5 bottles of wine per day. Possibly also patient's anxiety. The symptoms are aggravated by anxiety The symptoms are alleviated by Alcohol. Associated signs and symptoms: Pertinent positives: nausea, vomiting, Pertinent negatives: fever. Severity of symptoms: in the emergency department the symptoms are unchanged. The patient has experienced similar episodes in the past, several times. The patient has not recently seen a physician, 1 month ago for the same symptoms. Patient started drinking alcohol since 2017, after his gastric bypass. Historical: - Allergies: 09:43 No Known Allergies; ss - Home Meds: 09:43 metoprolol tartrate 50 mg Oral tab 1 tab 2 times per day [Active]; lisinopril 10 mg ss oral tab 1 tab twice a day [Active]; [place] 7.5-325 mg Oral tab [Active]; Flexeril 10 mg Oral tab [Active]; - PMHx: 09:43 Anxiety; herniated discs; Hypertension; Pancreatitis; ss - PSHx: 09:43 Gastric Bypass; ss - Immunization history:: Client reports having NOT received the Covid vaccine. - Social history:: Smoking status: Reported history of juuling and/or vaping. Patient uses alcohol, 1- 1.5 bottles of wine a day. Patient/guardian denies using street drugs. ROS: 10:21 Constitutional: Negative for fever, chills, and weight loss, Respiratory: Negative for pm1 shortness of breath, cough, wheezing, and pleuritic chest pain. 10:21 Back: Negative for injury and pain, : Negative for injury, bleeding, discharge, and swelling, MS/Extremity: Negative for injury and deformity, Skin: Negative for injury, rash, and discoloration, Neuro: Negative for headache, weakness, numbness, tingling, and seizure. 10:21 Cardiovascular: Positive for chest pain, palpitations, Negative for edema, orthopnea. 10:21 Abdomen/GI: Positive for abdominal pain, Nausea and vomit x 2 since last night, Negative for diarrhea, constipation. 10:21 Psych: Positive for anxiety, alcohol dependence. Exam: 10:21 Constitutional: This is a well developed, well nourished patient who is awake, alert, pm1 and in no acute distress. Head/Face: Normocephalic, atraumatic. 10:21 Back: No spinal tenderness. No costovertebral tenderness. Full range of motion. Skin: Warm, dry with normal turgor. Normal color with no rashes, no lesions, and no evidence of cellulitis. MS/ Extremity: Pulses equal, no cyanosis. Neurovascular intact. Full, normal range of motion. 10:21 Chest/axilla: Exam negative for acute changes, Inspection: normal, Palpation: is normal. 10:21 Cardiovascular: Rate: tachycardic, Rhythm: regular, Pulses: no pulse deficits are appreciated, Heart sounds: normal, normal S1and S2, Edema: is not appreciated. 10:21 Respiratory: Exam negative for acute changes, respiratory distress, shortness of breath, Breath sounds: are clear throughout. 10:21 Abdomen/GI: Inspection: obese Palpation: soft, in all quadrants, mild abdominal tenderness, in the left upper quadrant. 10:21 Neuro: Exam negative for acute changes, Orientation: is normal, Mentation: is normal, Motor: is normal, moves all fours. 14:25 ECG was reviewed by the Attending Physician. cp Vital Signs: 09:39 BP 166 / 105; Pulse 138; Resp 22; Pulse Ox 98% on R/A; Weight 122.47 kg; Height 6 ft. 0 ss in. (182.88 cm); Pain 1010; 10:09 Temp 97.6(TE); ss 10:26 BP 153 / 98; Pulse 135; Resp 20; Pulse Ox 99% ; vg1 11:30 BP 143 / 90; Pulse 140; Resp 18; Pulse Ox 100% ; vg1 12:39 BP 127 / 66; Pulse 141; Resp 18; Pulse Ox 100% on R/A; vg1 12:45 BP 128 / 69; Pulse 140; Resp 18; Pulse Ox 99% ; vg1 13:30 BP 141 / 70; Pulse 144; Resp 18; Pulse Ox 99% ; vg1 14:40 BP 127 / 94; Pulse 134; Resp 20; Pulse Ox 98% ; vg1 15:00 Pulse 130; vg1 15:40 BP 139 / 99; Pulse 123; Resp 20; Pulse Ox 97% ; vg1 16:30 BP 136 / 83; Pulse 120; Resp 20; Pulse Ox 98% ; vg1 17:17 Pulse 120; vg1 09:39 Body Mass Index 36.62 (122.47 kg, 182.88 cm) ss MDM: 09:48 Patient medically screened. pm1 09:55 Data reviewed: vital signs. Data interpreted: Pulse oximetry: on room air is 98 %. pm1 Interpretation: normal. 11:00 Differential diagnosis: gastritis, cholecystitis, pancreatitis, appendicitis, cp diverticulitis, viral gastroenteritis, gastroenteritis, alcohol abuse, illegal drug use. 12:15 Counseling: I had a detailed discussion with the patient and/or guardian regarding: the pm1 historical points, exam findings, and any diagnostic results supporting the discharge/admit diagnosis, lab results, radiology results, the need for outpatient follow up, a family practitioner, a roving court reporter, alcohol rehabilitation center, to return to the emergency department if symptoms worsen or persist or if there are any questions or concerns that arise at home. 17:02 ED course: Patient reports he is feeling better and requests discharge to home. cp 09/07 09:57 Order name: Basic Metabolic Panel; Complete Time: 11:18 pm1 09/07 16:30 Interpretation: Normal except: NA 129; GLUC 116. cp 09/07 09:57 Order name: CBC with Diff; Complete Time: 11:18 pm1 09/07 16:30 Interpretation: Normal except: HGB 12.6; HCT 38.0; RDW 15.6; MPV 6.9; AMANDA% 85.9; LYM% cp 4.8; LYMA 0.4. 09/07 09:57 Order name: LFT's; Complete Time: 11:18 pm1 09/07 16:30 Interpretation: Normal except: AST 114; ALT 106; ALK 147; GLOB 4.0; A/G 1.0. cp 09/07 09:57 Order name: Magnesium; Complete Time: 11:18 pm09/07 09:57 Order name: NT PRO-BNP; Complete Time: 11:18 pm09/07 09:57 Order name: PT-INR; Complete Time: 10:26 pm09/07 09:57 Order name: Troponin HS; Complete Time: 11:18 pm09/07 09:57 Order name: XRAY Chest (1 view); Complete Time: 11:18 pm09/07 09:58 Order name: ETOH Level; Complete Time: 10:47 pm09/07 09:58 Order name: UDS; Complete Time: 10:47 pm09/07 09:58 Order name: Lipase; Complete Time: 11:18 pm09/07 09:58 Order name: COVID-19 SARS RT PCR (Document "Date of Onset" if Symptomatic); Complete pm1 Time: 11:44 09/07 10:24 Order name: Urine Dipstick-Ancillary; Complete Time: 10:26 EDMS 09/07 10:57 Order name: Manual Differential; Complete Time: 11:18 EDMS 09/07 09:57 Order name: EKG; Complete Time: 09:58 pm09/07 09:58 Order name: Cardiac monitoring; Complete Time: 10:26 pm09/07 09:58 Order name: EKG - Nurse/Tech; Complete Time: 10:07 pm09/07 09:58 Order name: IV Saline Lock; Complete Time: 10:26 pm09/07 09:58 Order name: CT Abd/Pelvis - IV Contrast Only; Complete Time: 12:00 pm09/07 09:58 Order name: Labs collected and sent; Complete Time: 10:26 pm09/07 09:58 Order name: O2 Per Protocol; Complete Time: 10:12 pm09/07 09:58 Order name: O2 Sat Monitoring; Complete Time: 10:12 pm09/07 09:58 Order name: Urine Dipstick-Ancillary (obtain specimen); Complete Time: 10:26 pm1 EC:25 Rate is 151 beats/min. Rhythm is regular. MN interval is normal. QRS interval is cp normal. QT interval is normal. T waves are Inverted in lead III. Interpreted by me. Reviewed by me. Administered Medications: 10:42 Drug: Ativan (LORazepam) 1 mg Route: IVP; Site: right antecubital; vg1 11:07 Follow up: Response: No adverse reaction; Marked relief of symptoms vg1 11:07 Drug: Banana Bag - (NS 0.9% 1000 ml, foLIC Acid 1 mg, Thiamine 100 mg, Multivitamin 1 vg1 amp) Route: IV; Rate: calculated rate; Site: right antecubital; 13:08 Follow up: IV Status: Completed infusion; IV Intake: 1000ml vg1 11:25 Drug: Zofran (Ondansetron) 4 mg Route: IVP; Site: right antecubital; ss 13:08 Follow up: Response: No adverse reaction vg1 11:26 Drug: morphine 4 mg Route: IVP; Site: right antecubital; ss 13:08 Follow up: Response: No adverse reaction vg1 12:37 Drug: NS 0.9% 1000 ml Route: IV; Rate: 1000 ml; Site: right antecubital; cb5 13:30 Follow up: IV Status: Completed infusion vg1 12:37 Drug: Ativan (LORazepam) 1 mg Route: IVP; Site: right antecubital; cb5 14:34 Follow up: Response: No adverse reaction; No change in condition vg1 13:13 Drug: fentaNYL (PF) 50 mcg Route: IVP; Site: right antecubital; vg1 14:34 Follow up: Response: No adverse reaction; Marked relief of symptoms vg1 14:38 Drug: Metoprolol 50 mg Route: PO; vg1 15:00 Follow up: Pulse 130 bpm vg1 14:39 Drug: Metoprolol 5 mg Route: IVP; Site: right antecubital; vg1 15:32 Follow up: Response: No adverse reaction; Other; Other: BP130 vg1 15:40 Drug: Metoprolol 5 mg Route: IVP; Site: right antecubital; vg1 17:17 Follow up: Pulse 120 bpm; Response: No adverse reaction vg1 15:40 Drug: NS 0.9% 1000 ml Route: IV; Rate: 1 bolus; Site: right antecubital; vg1 17:18 Follow up: IV Status: Completed infusion; IV Intake: 1000ml vg1 Disposition Summary: 09/07/21 17:04 Discharge Ordered Location: Home cp Problem: new cp Symptoms: have improved cp Condition: Stable cp Diagnosis - Alcohol dependence with withdrawal, unspecified cp - Abdominal pain, unspecified cp Followup: cp - With: Private Physician - When: 2 - 3 days - Reason: Recheck today's complaints Discharge Instructions: - Discharge Summary Sheet cp - Abdominal Pain, Adult cp - Alcohol Withdrawal Syndrome cp - Alcohol Use Disorder cp - Alcohol Abuse and Nutrition cp Forms: - Medication Reconciliation Form cp - Thank You Letter cp - Antibiotic Education cp - Prescription Opioid Use cp Prescriptions: - LIBRIUM - take 25 milligram by ORAL route every 8 hours As needed; 15 milligram; Refills: cp 0, Product Selection Permitted - Zofran 4 mg Oral Tablet - take 1 tablet by ORAL route every 12 hours As needed; 20 tablet; Refills: 0, cp Product Selection Permitted Addendum: 09/09/2021 00:02 Co-signature as Attending Physician, Roberto River MD I agree with the assessment and k dr plan of care. Signatures: Dispatcher [employer] EDMS Roberto River MD MD [facility] Chyna Erwin RN RN ss Adalid Srivastava, MARIA C PA cp Moises Parekh, RICHARD [employer]KE ADJUSTER pm1 Janet Montoya RN RN vg1 Adriana Cao, RN RN cb5 Corrections: (The following items were deleted from the chart) 09/07 09:44 09:43 PMHx: gastric bypass; [facility]
--- NOTE | 2021-09-07 17:05 | ER ---
Nurse's Notes [facility] Name: Marquise Jhaveri Age: 40 yrs Sex: Male : 1980 Arrival Date: 09/07/2021 Time: 09:16 Bed 5 Private MD: Sumeet Lazar T Diagnosis: Alcohol dependence with withdrawal, unspecified;Abdominal pain, unspecified Presentation: 09/07 09:39 Chief complaint: Patient states: "I've had this pain in my chest for about a month now. ss I was seen in the ER a month ago and they said everything was okay. I've been admitted before for pancreatitis, but I hope it's not that. I've also had alcohol withdrawals, but my last drink was just last night." Pt reports he is extremely anxious at this moment because of the possibilities of what could be going on with him. Pt admits to drinking at least 1-1.5 bottles of wine a night. Coronavirus screen: Client denies travel out of the [place] in the last 14 days. Ebola Screen: Patient denies exposure to infectious person. Patient denies travel to an Ebola-affected area in the 21 days before illness onset. Initial Sepsis Screen: Does the patient meet any 2 criteria? No. Patient's initial sepsis screen is negative. Does the patient have a suspected source of infection? No. Patient's initial sepsis screen is negative. Risk Assessment: Do you want to hurt yourself or someone else? Patient reports no desire to harm self or others. Onset of symptoms was July 2021. 09:39 Method Of Arrival: Ambulatory ss 09:39 Acuity: ARNULFO 2 ss Historical: - Allergies: 09:43 No Known Allergies; ss - Home Meds: 09:43 metoprolol tartrate 50 mg Oral tab 1 tab 2 times per day [Active]; lisinopril 10 mg ss oral tab 1 tab twice a day [Active]; [place] 7.5-325 mg Oral tab [Active]; Flexeril 10 mg Oral tab [Active]; - PMHx: 09:43 Anxiety; herniated discs; Hypertension; Pancreatitis; ss - PSHx: 09:43 Gastric Bypass; ss - Immunization history:: Client reports having NOT received the Covid vaccine. - Social history:: Smoking status: Reported history of juuling and/or vaping. Patient uses alcohol, 1- 1.5 bottles of wine a day. Patient/guardian denies using street drugs. Screenin:26 Abuse screen: Denies threats or abuse. Nutritional screening: No deficits noted. vg1 Tuberculosis screening: No symptoms or risk factors identified. Fall Risk No fall in past 12 months (0 pts). No secondary diagnosis (0 pts). IV access (20 points). Ambulatory Aid- None/Bed Rest/Nurse Assist (0 pts). Gait- Normal/Bed Rest/Wheelchair (0 pts) Mental Status- Oriented to own ability (0 pts). Total Perla Fall Scale indicates No Risk (0-24 pts). Assessment: 10:15 Reassessment: unable to pull Ativan from pyxis at this time due to maintenance; vg1 provider notified. 10:27 General: Appears in no apparent distress. uncomfortable, Behavior is calm, cooperative. vg1 Pain: Complains of pain in epigastric area and left upper quadrant Pain currently is 10 out of 10 on a pain scale. Pain began 2 hours ago. Neuro: Level of Consciousness is awake, alert, obeys commands, Oriented to person, place, time, situation. Cardiovascular: Patient's skin is warm and dry. Respiratory: Airway is patent Respiratory effort is even, unlabored. GI: Abdomen is round non-distended, Last BM was September 07, 2021. pt stated 'had a regular BM then I had diarrhea and vomited 3x at work' Abdomen is tender to palpation in epigastric area and left upper quadrant Reports diarrhea, nausea, vomiting. : No signs and/or symptoms were reported regarding the genitourinary system. EENT: No signs and/or symptoms were reported regarding the EENT system. Derm: Skin is intact, is healthy with good turgor. Musculoskeletal: Circulation, motion, and sensation intact. 10:27 Reassessment: pt stated 'I drank whisky last night about the amount of a water bottle'. vg1 11:39 Reassessment: Patient appears in no apparent distress at this time. No changes from vg1 previously documented assessment. Patient and/or family updated on plan of care and expected duration. Pain level reassessed. Patient is alert, oriented x 3, equal unlabored respirations, skin warm/dry/pink. 12:20 Reassessment: Patient and/or family updated on plan of care and expected duration. Pain cb5 level reassessed. 12:44 Reassessment:. cb5 12:45 Reassessment: Patient appears in no apparent distress at this time. Patient and/or vg1 family updated on plan of care and expected duration. Pain level reassessed. Patient is alert, oriented x 3, equal unlabored respirations, skin warm/dry/pink. Patient states feeling better. 14:00 Reassessment: Patient appears in no apparent distress at this time. No changes from vg1 previously documented assessment. Patient and/or family updated on plan of care and expected duration. Pain level reassessed. Patient is alert, oriented x 3, equal unlabored respirations, skin warm/dry/pink. 15:30 Reassessment: Patient appears in no apparent distress at this time. Patient and/or vg1 family updated on plan of care and expected duration. Pain level reassessed. Patient is alert, oriented x 3, equal unlabored respirations, skin warm/dry/pink. States back pain; provider notified. Vital Signs: 09:39 BP 166 / 105; Pulse 138; Resp 22; Pulse Ox 98% on R/A; Weight 122.47 kg; Height 6 ft. 0 ss in. (182.88 cm); Pain 10/10; 10:09 Temp 97.6(TE); ss 10:26 BP 153 / 98; Pulse 135; Resp 20; Pulse Ox 99% ; vg1 11:30 BP 143 / 90; Pulse 140; Resp 18; Pulse Ox 100% ; vg1 12:39 BP 127 / 66; Pulse 141; Resp 18; Pulse Ox 100% on R/A; vg1 12:45 BP 128 / 69; Pulse 140; Resp 18; Pulse Ox 99% ; vg1 13:30 BP 141 / 70; Pulse 144; Resp 18; Pulse Ox 99% ; vg1 14:40 BP 127 / 94; Pulse 134; Resp 20; Pulse Ox 98% ; vg1 15:00 Pulse 130; vg1 15:40 BP 139 / 99; Pulse 123; Resp 20; Pulse Ox 97% ; vg1 16:30 BP 136 / 83; Pulse 120; Resp 20; Pulse Ox 98% ; vg1 17:17 Pulse 120; vg1 09:39 Body Mass Index 36.62 (122.47 kg, 182.88 cm) ED Course: 09:16 Patient arrived in ED. mr 09:16 Sumeet Lazar MD is Private Physician. mr 09:42 Triage completed. ss 09:43 Arm band placed on right wrist. ss 09:46 Moises Parekh NP is PHCP. pm1 09:46 Roberto River MD is Attending Physician. pm1 10:12 Janet Montoya, RN is Primary Nurse. vg1 10:26 Patient has correct armband on for positive identification. Placed in gown. Bed in low vg1 position. Call light in reach. Side rails up X 1. 10:26 No provider procedures requiring assistance completed. Initial lab(s) drawn, by ED vg1 staff, sent to lab. Inserted saline lock: 20 gauge in right antecubital area, using aseptic technique. ,using aseptic technique. completed by ED staff Blood collected. 10:57 XRAY Chest (1 view) In Process Unspecified. EDMS 11:32 CT Abd/Pelvis - IV Contrast Only In Process Unspecified. EDMS 13:58 PHCP role handed off by Moises Parekh NP cp 13:58 Adalid Srivastava PA is PHCP. cp 17:18 IV discontinued, intact, bleeding controlled, No redness/swelling at site. Pressure vg1 dressing applied. Administered Medications: 10:42 Drug: Ativan (LORazepam) 1 mg Route: IVP; Site: right antecubital; vg1 11:07 Follow up: Response: No adverse reaction; Marked relief of symptoms vg1 11:07 Drug: Banana Bag - (NS 0.9% 1000 ml, foLIC Acid 1 mg, Thiamine 100 mg, Multivitamin 1 vg1 amp) Route: IV; Rate: calculated rate; Site: right antecubital; 13:08 Follow up: IV Status: Completed infusion; IV Intake: 1000ml vg1 11:25 Drug: Zofran (Ondansetron) 4 mg Route: IVP; Site: right antecubital; ss 13:08 Follow up: Response: No adverse reaction vg1 11:26 Drug: morphine 4 mg Route: IVP; Site: right antecubital; ss 13:08 Follow up: Response: No adverse reaction vg1 12:37 Drug: NS 0.9% 1000 ml Route: IV; Rate: 1000 ml; Site: right antecubital; cb5 13:30 Follow up: IV Status: Completed infusion vg1 12:37 Drug: Ativan (LORazepam) 1 mg Route: IVP; Site: right antecubital; cb5 14:34 Follow up: Response: No adverse reaction; No change in condition vg1 13:13 Drug: fentaNYL (PF) 50 mcg Route: IVP; Site: right antecubital; vg1 14:34 Follow up: Response: No adverse reaction; Marked relief of symptoms vg1 14:38 Drug: Metoprolol 50 mg Route: PO; vg1 15:00 Follow up: Pulse 130 bpm vg1 14:39 Drug: Metoprolol 5 mg Route: IVP; Site: right antecubital; vg1 15:32 Follow up: Response: No adverse reaction; Other; Other: BP130 vg1 15:40 Drug: Metoprolol 5 mg Route: IVP; Site: right antecubital; vg1 17:17 Follow up: Pulse 120 bpm; Response: No adverse reaction vg1 15:40 Drug: NS 0.9% 1000 ml Route: IV; Rate: 1 bolus; Site: right antecubital; vg1 17:18 Follow up: IV Status: Completed infusion; IV Intake: 1000ml vg1 Intake: 13:08 IV: 1000ml; Total: 1000ml. vg1 17:18 IV: 1000ml; Total: 2000ml. vg1 Outcome: 17:04 Discharge ordered by . cp 17:18 Discharged to home ambulatory. vg1 17:18 Condition: good 17:18 Discharge instructions given to patient, Instructed on discharge instructions, follow up and referral plans. medication usage, Demonstrated understanding of instructions, follow-up care, medications, Prescriptions given X 2. 17:19 Patient left the ED. vg1 Signatures: Dispatcher [employer] [facility] Yoli MarioChyna, RN RN ss Adalid Srivastava PA PA cp Moises Parekh, RICHARD HAT CONDITIONER pm1 Janet Montoya RN RN vg1 Adriana Cao RN RN cb5 Corrections: (The following items were deleted from the chart) 09:44 09:43 PMHx: gastric bypass; ss ss
[2021-09-07 18:11] VITALS: TEMP 97.6
[2021-09-07 18:21] VITALS: BP 136/83; O2SAT 98
--- NOTE | 2021-09-08 13:07 | EKG ---
Test Date: 2021-09-07 Test Time: 14:19:36 Well Driller: BERNARD MEASUREMENT RESULTS: Intervals: Rate: 151 [place]: 124 QRSD: 80 QT: 268 QTc: 424 [place]: P: 37 [place]: 124 QRS: -16 T: 15 INTERPRETIVE STATEMENTS: Sinus tachycardia Otherwise normal ECG Compared to ECG 09/07/2021 10:03:12 No significant changes Electronically Signed On 09-08-21 13:03:10 PATIENT CONSUMER MARKETER by Mynor Brennan
--- NOTE | 2021-09-08 13:08 | EKG ---
Test Date: 2021-09-07 Test Time: 10:03:12 Lay Out Helper: BERNARD MEASUREMENT RESULTS: Intervals: Rate: 133 ID: [id number] QRSD: 82 QT: 278 QTc: 413 [place]: P: 41 ID: [id number] QRS: -6 T: 21 INTERPRETIVE STATEMENTS: Sinus tachycardia Possible Left atrial enlargement Borderline ECG Compared to ECG 08/03/2021 02:26:53 Sinus rhythm no longer present Electronically Signed On 09-08-21 13:03:20 TOBACCO CUTTER by Mynor Brennan
== END 2021-09-07 17:19 | disposition home or self-care (01) ==
LOC: ER 09:14
DX: F10.239 Alcohol dependence with withdrawal, unspecified (principal); R10.9 Unspecified abdominal pain; I10 Essential (primary) hypertension; F41.9 Anxiety disorder, unspecified; Z95.1 Presence of aortocoronary bypass graft
CPT/HCPCS: 36415; 71045; 74177; 80048; 80076; 80307; 80320; 81003; 83690; 83735; 83880; 84484; 85025; 85610; 93005; 96361; 96365; 96366; 96375; 99284; J2405; J3010; J3411; J7030; Q9967; U0003

== ENCOUNTER 2021-10-24 01:26 | Inpatient (IN) | payer SELFPAY ==
--- OUTSIDE RECORDS SUMMARY | 2021-10-24 01:29 | XMS REPORT | Continuity of Care Document ---
:1980 Author Organization [facility] t Address [address] [place] [address] Care Team Providers Name Role Phone PCP, DOES NOT HAVE A Primary Care Physician Unavailable Sneha CHAMBERLAIN, K.H. Attending Clinician Carlota HOOVER Attending Clinician Unavailable KACY Attending Clinician Unavailable KACY Admitting Clinician Unavailable Payers Payer Name Policy Type Policy Number Effective Date Expiration Date [facility] [id number] 2019 PPO 00:00:00 Problems This patient has no known problems. Allergies, Adverse Reactions, Alerts Allergy Allergy Status Severity Reaction(s) Onset Inactive Treating Comm ents Source Name Type Date Date Clinician NO KNOWN Drug Active [facility] ALLERGIE [facility] Medications This patient has no known medications. Procedures This patient has no known procedures. Encounters Start End Encounter Admission Attending Care Care Encounter Source Date/Time Date/Time Type Type Clinicians Facility Department ID 2020-04-14 2020-04-14 Telephone GIGI Hoover [id number] 00:00:00 00:00:00 Royal Lopez [id number] Edgardo [id number] esstuyet [id number] nal 059 Building 2020-01-15 2020-01-15 Outpatient R SNEHA [facility] [id number] [address] 15:30:00 15:30:00 ROYAL [facility] 2019-12-24 2019-12-25 Outpatient X GIGI WOODRUFF [facility] [id number] [address] 17:31:30 13:45:00 DONELL [facility] Results This patient has no known results.
[2021-10-24] MEDS ORDERED: ONDANSETRON 4 MG/2 ML VIAL ONE ×2 (02:09→02:56)
[2021-10-24] MEDS ORDERED: MORPHINE 4 MG/ML SYR ONE (02:09)
[2021-10-24] MEDS ORDERED: NA CHLORIDE 0.9% 2,000 ML ONE (02:09)
[2021-10-24 02:15] LABS: Absolute Lymphocytes (CBC) 1.9 K/uL (0.7-4.9); Hematocrit 37.2 % (39.6-49.0); Lymphocytes % 22.3 % (15.3-44.8); MPV 6.8 fL (7.6-11.3); RBC Red Blood Cell Count 4.68 M/uL (4.33-5.43)
[2021-10-24 02:56] LABS: ALT/SGPT 55 U/L (12-78); AST/SGOT 57 U/L (15-37); Albumin 3.5 g/dL (3.4-5.0); Alkaline Phosphatase 163 U/L (45-117); BUN Blood Urea Nitrogen 5 mg/dL (7-18); Bicarbonate 26 mmol/L (21-32); Bilirubin Total 0.4 mg/dL (0.2-1.0); Glucose Level 150 mg/dL (74-106); HDL Cholesterol 33 mg/dL (40-60); LDL Cholesterol, Calculated 54 (<130); Lipase 433 U/L (73-393); Potassium 3.9 mmol/L (3.5-5.1); Protein, Total 7.9 g/dL (6.4-8.2); Sodium Level 135 mmol/L (136-145)
[2021-10-24] MEDS ORDERED: NA CHLORIDE 0.9% 1,000 ML ONE ×3 (02:56→14:03)
[2021-10-24] MEDS ORDERED: HYDROMORPHONE HCL 0.5 MG/0.5 ML INJ ONE (02:56)
[2021-10-24] MEDS ORDERED: FAMOTIDINE 20 MG/2 ML VIAL IV ONE (02:56)
[2021-10-24] MEDS ORDERED: LORazepam 2 MG/ML VIAL ONE ×2 (02:56→14:12)
[2021-10-24 03:11] LABS: Urine Blood Trace-intact (Negative); Urine Glucose Negative (Negative); Urine Protein Negative (Negative)
--- NOTE | 2021-10-24 03:21 | EDPHYS ---
Physician Documentation [facility] Name: Marquise Jhaveri Age: 40 yrs Sex: Male : 1980 Arrival Date: 10/24/2021 Time: 01:29 Bed 5 Private MD: COLLIN Physician Adalid Capone HPI: 10/24 02:10 This 40 yrs old Male presents to ER via Ambulatory with complaints of etelvina Abdominal Pain. 02:10 The patient presents with abdominal pain. Onset: The symptoms/episode began/occurred 2 etelvina day(s) ago. The patient presents to the emergency department with nausea, vomiting, that is intermittent. Onset: The symptoms/episode began/occurred 2 day(s) ago. Possible causes: unknown. The symptoms are aggravated by nothing. The symptoms are alleviated by nothing. Historical: - Allergies: 01:58 No Known Allergies; lp1 - Home Meds: 01:58 Flexeril Oral [Active]; Hydrocodone-Acetaminophen Oral [Active]; lisinopril 10 mg Oral lp1 tab 1 tab twice a day [Active]; metoprolol tartrate 50 mg Oral tab 1 tab 2 times per day [Active]; - PMHx: 01:58 Anxiety; herniated discs; Hypertension; Pancreatitis; lp1 - PSHx: 01:58 Gastric Bypass; back surgery; lp1 - Immunization history:: Adult Immunizations up to date. - Social history:: Smoking status: Reported history of juuling and/or vaping. - Family history:: not pertinent. ROS: 02:13 Constitutional: Negative for fever, chills, and weight loss, Eyes: Negative for injury, etelvina pain, redness, and discharge, ENT: Negative for injury, pain, and discharge, Neck: Negative for injury, pain, and swelling, Cardiovascular: Negative for chest pain, palpitations, and edema, Respiratory: Negative for shortness of breath, cough, wheezing, and pleuritic chest pain, Back: Negative for injury and pain, : Negative for injury, bleeding, discharge, and swelling, MS/Extremity: Negative for injury and deformity, Skin: Negative for injury, rash, and discoloration, Neuro: Negative for headache, weakness, numbness, tingling, and seizure, Psych: Negative for depression, anxiety, suicide ideation, homicidal ideation, and hallucinations, Allergy/Immunology: Negative for hives, rash, and allergies, Endocrine: Negative for neck swelling, polydipsia, polyuria, polyphagia, and marked weight changes, Hematologic/Lymphatic: Negative for swollen nodes, abnormal bleeding, and unusual bruising. 02:13 Abdomen/GI: Positive for abdominal pain, abdominal distension, of the epigastric area, right upper quadrant and left upper quadrant. Exam: 02:13 Constitutional: This is a well developed, well nourished patient who is awake, alert, etelvina and in no acute distress. Head/Face: Normocephalic, atraumatic. Eyes: Pupils equal round and reactive to light, extra-ocular motions intact. Lids and lashes normal. Conjunctiva and sclera are non-icteric and not injected. Cornea within normal limits. Periorbital areas with no swelling, redness, or edema. ENT: Nares patent. No nasal discharge, no septal abnormalities noted. Tympanic membranes are normal and external auditory canals are clear. Oropharynx with no redness, swelling, or masses, exudates, or evidence of obstruction, uvula midline. Mucous membranes moist. Neck: Trachea midline, no thyromegaly or masses palpated, and no cervical lymphadenopathy. Supple, full range of motion without nuchal rigidity, or vertebral point tenderness. No Meningismus. Chest/axilla: Normal chest wall appearance and motion. Nontender with no deformity. No lesions are appreciated. Cardiovascular: Regular rate and rhythm with a normal S1 and S2. No gallops, murmurs, or rubs. Normal PMI, no JVD. No pulse deficits. Respiratory: Lungs have equal breath sounds bilaterally, clear to auscultation and percussion. No rales, rhonchi or wheezes noted. No increased work of breathing, no retractions or nasal flaring. Back: No spinal tenderness. No costovertebral tenderness. Full range of motion. Male : Normal genitalia with no discharge or lesions. Skin: Warm, dry with normal turgor. Normal color with no rashes, no lesions, and no evidence of cellulitis. MS/ Extremity: Pulses equal, no cyanosis. Neurovascular intact. Full, normal range of motion. Neuro: Awake and alert, GCS 15, oriented to person, place, time, and situation. Cranial nerves II-XII grossly intact. Motor strength 5/5 in all extremities. Sensory grossly intact. Cerebellar exam normal. Normal gait. Psych: Awake, alert, with orientation to person, place and time. Behavior, mood, and affect are within normal limits. 02:13 Abdomen/GI: Inspection: abdomen appears normal, Bowel sounds: normal, Palpation: moderate abdominal tenderness, in the epigastric area, right upper quadrant and left upper quadrant, Liver: no appreciated palpable abnormalities, Hernia: not appreciated. 03:21 ECG was reviewed by the Attending Physician. [facility] Vital Signs: 01:56 BP 181 / 110; Pulse 87; Resp 20; Temp 98.2(O); Pulse Ox 97% on R/A; Weight 122.47 kg lp1 (R); Height 6 ft. 0 in. (182.88 cm); Pain 10/10; 02:13 BP 174 / 114; Pulse 83; Resp 18; Pulse Ox 97% on R/A; lp1 03:19 BP 188 / 106; Pulse 83; Resp 18 S; Pulse Ox 100% on R/A; as6 01:56 Body Mass Index 36.62 (122.47 kg, 182.88 cm) lp1 MDM: 01:40 Patient medically screened. [facility] 02:14 Differential diagnosis: Peptic Ulcer Ureterolithiasis coronary artery disease, etelvina cholecystitis, gastritis, gastroesophageal reflux disease, non-specific abd pain, pancreatitis, Peptic Ulcer Disease. Data reviewed: vital signs, nurses notes, lab test result(s), EKG, radiologic studies, CT scan, plain films. Data interpreted: bus monitor: rate is 83 beats/min, rhythm is regular, Pulse oximetry: on room air is 97 %. Test interpretation: by ED physician or midlevel provider: ECG. Counseling: I had a detailed discussion with the patient and/or guardian regarding: the historical points, exam findings, and any diagnostic results supporting the discharge/admit diagnosis, lab results, radiology results, the need for further work-up and treatment in the hospital. 10/24 02:02 Order name: CBC with Diff; Complete Time: 02:50 lp1 10/24 02:02 Order name: CMP; Complete Time: 03:16 lp1 10/24 02:02 Order name: Lipase; Complete Time: 03:16 lp1 10/24 02:07 Order name: Troponin High Sensitivity [facility] 10/24 02:07 Order name: Lipid Profile [facility] 10/24 02:07 Order name: SARS-COV-2 RT PCR (Document "Date of Onset" if Symptomatic) [facility] 10/24 02:07 Order name: CT Abd/Pelvis - IV Contrast Only [facility] 10/24 02:07 Order name: ETOH Level; Complete Time: 04:07 [facility] 10/24 02:07 Order name: UDS; Complete Time: 04:07 [facility] 10/24 02:11 Order name: Troponin High Sensitivity; Complete Time: 03:16 EDMS 10/24 02:11 Order name: Lipid Profile; Complete Time: 03:16 EDMS 10/24 02:17 Order name: Chest Single View XRAY [facility] 10/24 03:11 Order name: Urine Dipstick-Ancillary; Complete Time: 03:16 EDMS 10/24 10:59 Order name: CT EDIN 10/24 02:02 Order name: IV Saline Lock; Complete Time: 02:02 [facility] 10/24 02:02 Order name: Labs collected and sent; Complete Time: 02:02 [facility] 10/24 02:07 Order name: EKG; Complete Time: 02:07 [facility] 10/24 02:07 Order name: EKG - Nurse/Tech; Complete Time: 03:12 [facility] EC:21 Rate is 86 beats/min. Rhythm is regular. QRS [place] is Normal. [place] interval is normal. QRS etelvina interval is normal. QT interval is normal. No Q waves. T waves are Normal. No ST changes noted. Clinical impression: NSR w/ Non-specific ST/T Changes and No evidence of ischemia. Interpreted by me. Reviewed by me. Administered Medications: 02:12 Drug: NS 0.9% 1000 ml Route: IV; Rate: 1 bolus; Site: right forearm; lp1 04:05 Follow up: Response: No adverse reaction; IV Status: Completed infusion; IV Intake: as6 1000ml 02:13 Drug: morphine 4 mg Route: IVP; Site: right forearm; lp1 04:06 Follow up: Response: No adverse reaction; RASS: Alert and Calm (0) as6 02:13 Drug: Zofran (Ondansetron) 4 mg Route: IVP; Site: right forearm; lp1 04:06 Follow up: Response: No adverse reaction as6 03:11 Drug: NS 0.9% 1000 ml Route: IV; Rate: 1 bolus; Site: right antecubital; as6 04:06 Follow up: Response: No adverse reaction; IV Status: Completed infusion; IV Intake: as6 1000ml 03:11 Drug: Pepcid (famotidine) 20 mg Route: IVP; Site: right antecubital; as6 04:06 Follow up: Response: No adverse reaction as6 03:11 Drug: Dilaudid (HYDROmorphone) 0.5 mg Route: IVP; Site: right antecubital; as6 04:06 Follow up: Response: No adverse reaction; RASS: Alert and Calm (0) as6 03:11 Drug: Zofran (Ondansetron) 4 mg Route: IVP; Site: right antecubital; as6 04:07 Follow up: Response: No adverse reaction as6 03:11 Drug: Ativan (LORazepam) 1 mg Route: IVP; Site: right antecubital; as6 04:07 Follow up: Response: No adverse reaction as6 04:05 Drug: NS 0.9% 1000 ml Route: IV; Rate: 125 ml/hr; Site: right antecubital; as6 04:06 Follow up: IV Status: Infusion continued upon admission as6 07:35 Drug: NS 0.9% 1000 ml Route: IV; Rate: 1 bolus; Site: right antecubital; jg9 11:35 Follow up: IV Status: Completed infusion; IV Intake: 1000ml jg9 07:35 Drug: Dilaudid (HYDROmorphone) 1 mg Route: IVP; Site: right antecubital; jg9 11:35 Follow up: Response: No adverse reaction; RASS: Drowsy (-1) jg9 07:35 Drug: Phenergan (promethazine) 12.5 mg Route: IVP; Site: right antecubital; jg9 11:35 Follow up: Response: No adverse reaction; Nausea is decreased jg9 Disposition Summary: 10/24/21 03:20 Hospitalization Ordered Hospitalization Status: Inpatient Admission etelvina Provider: Sameer Henry cha Condition: Fair etelvina Problem: new etelvina Symptoms: have improved etelvina Bed/Room Type: Standard etelvina Location: Telemetry/MedSurg (Inpatient)(10/24/21 14:01) bd Room Assignment: 218(10/24/21 14:01) bd Diagnosis - Epigastric abdominal tenderness etelvina - Biliary acute pancreatitis - alcoholic etelvina - Essential (primary) hypertension etelvina - 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
--- NOTE | 2021-10-24 03:21 | ER ---
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 Coronavirus screen: At this time, the client does not indicate any symptoms associated with coronavirus-19. Ebola Screen: No symptoms or risks identified at this time. Initial Sepsis Screen: Does the patient meet any 2 criteria? No. Patient's initial sepsis screen is negative. Does the patient have a suspected source of infection? No. Patient's initial sepsis screen is negative. Risk Assessment: Do you want to hurt yourself or someone else? Patient reports no desire to harm self or others. Onset of symptoms was October 23, 2021. 01:56 Method Of Arrival: Ambulatory lp1 01:56 Acuity: ARNULFO 2 lp1 Historical: - Allergies: 01:58 No Known Allergies; lp1 - Home Meds: 01:58 Flexeril Oral [Active]; Hydrocodone-Acetaminophen Oral [Active]; lisinopril 10 mg Oral lp1 tab 1 tab twice a day [Active]; metoprolol tartrate 50 mg Oral tab 1 tab 2 times per day [Active]; - PMHx: 01:58 Anxiety; herniated discs; Hypertension; Pancreatitis; lp1 - PSHx: 01:58 Gastric Bypass; back surgery; lp1 - Immunization history:: Adult Immunizations up to date. - Social history:: Smoking status: Reported history of juuling and/or vaping. - Family history:: not pertinent. Screenin:00 Abuse screen: Denies threats or abuse. Denies injuries from another. Nutritional lp1 screening: No deficits noted. Tuberculosis screening: No symptoms or risk factors identified. Fall Risk None identified. Assessment: 01:59 General: Appears uncomfortable, Behavior is anxious, restless. Pain: Complains of pain lp1 in epigastric area, right upper quadrant and left upper quadrant Pain currently is 10 out of 10 on a pain scale. Quality of pain is described as sharp, stabbing. Neuro: Level of Consciousness is awake, alert, obeys commands, Oriented to person, place, time, situation. Cardiovascular: Patient's skin is warm and dry. Respiratory: Respiratory effort is even, Respiratory pattern is regular. GI: Abdomen is non-distended, Bowel sounds present X 4 quads. Abdomen is tender to palpation in epigastric area, right upper quadrant and left upper quadrant. : No signs and/or symptoms were reported regarding the genitourinary system. EENT: No signs and/or symptoms were reported regarding the EENT system. Derm: Skin is intact, Skin is dry, Skin is normal. Musculoskeletal: No deficits noted. Vital Signs: 01:56 BP 181 / 110; Pulse 87; Resp 20; Temp 98.2(O); Pulse Ox 97% on R/A; Weight 122.47 kg lp1 (R); Height 6 ft. 0 in. (182.88 cm); Pain 10/10; 02:13 BP 174 / 114; Pulse 83; Resp 18; Pulse Ox 97% on R/A; lp1 03:19 BP 188 / 106; Pulse 83; Resp 18 S; Pulse Ox 100% on R/A; as6 01:56 Body Mass Index 36.62 (122.47 kg, 182.88 cm) lp1 ED Course: 01:29 Patient arrived in ED. kz 01:40 Adalid Capone MD is Attending Physician. etelvina 01:57 Triage completed. lp1 01:57 Arm band placed on. lp1 01:57 Inserted saline lock: 20 gauge in right forearm, using aseptic technique. Blood lp1 collected. 02:00 Patient has correct armband on for positive identification. Bed in low position. Call lp1 light in reach. Pulse ox on. NIBP on. 02:06 Arun Weston, ANAHY is Primary Nurse. as6 02:39 Chest Single View XRAY In Process Unspecified. EDMS 03:11 UDS Sent. as6 03:17 Sameer Henry is Hospitalizing Provider. etelvina 04:07 No provider procedures requiring assistance completed. Patient admitted, IV remains in as6 place. 07:22 Lipid Profile Sent. jg9 07:22 Troponin High Sensitivity Sent. jg9 Administered Medications: 02:12 Drug: NS 0.9% 1000 ml Route: IV; Rate: 1 bolus; Site: right forearm; lp1 04:05 Follow up: Response: No adverse reaction; IV Status: Completed infusion; IV Intake: as6 1000ml 02:13 Drug: morphine 4 mg Route: IVP; Site: right forearm; lp1 04:06 Follow up: Response: No adverse reaction; RASS: Alert and Calm (0) as6 02:13 Drug: Zofran (Ondansetron) 4 mg Route: IVP; Site: right forearm; lp1 04:06 Follow up: Response: No adverse reaction as6 03:11 Drug: NS 0.9% 1000 ml Route: IV; Rate: 1 bolus; Site: right antecubital; as6 04:06 Follow up: Response: No adverse reaction; IV Status: Completed infusion; IV Intake: as6 1000ml 03:11 Drug: Pepcid (famotidine) 20 mg Route: IVP; Site: right antecubital; as6 04:06 Follow up: Response: No adverse reaction as6 03:11 Drug: Dilaudid (HYDROmorphone) 0.5 mg Route: IVP; Site: right antecubital; as6 04:06 Follow up: Response: No adverse reaction; RASS: Alert and Calm (0) as6 03:11 Drug: Zofran (Ondansetron) 4 mg Route: IVP; Site: right antecubital; as6 04:07 Follow up: Response: No adverse reaction as6 03:11 Drug: Ativan (LORazepam) 1 mg Route: IVP; Site: right antecubital; as6 04:07 Follow up: Response: No adverse reaction as6 04:05 Drug: NS 0.9% 1000 ml Route: IV; Rate: 125 ml/hr; Site: right antecubital; as6 04:06 Follow up: IV Status: Infusion continued upon admission as6 07:35 Drug: NS 0.9% 1000 ml Route: IV; Rate: 1 bolus; Site: right antecubital; jg9 11:35 Follow up: IV Status: Completed infusion; IV Intake: 1000ml jg9 07:35 Drug: Dilaudid (HYDROmorphone) 1 mg Route: IVP; Site: right antecubital; jg9 11:35 Follow up: Response: No adverse reaction; RASS: Drowsy (-1) jg9 07:35 Drug: Phenergan (promethazine) 12.5 mg Route: IVP; Site: right antecubital; jg9 11:35 Follow up: Response: No adverse reaction; Nausea is decreased jg9 Intake: 04:05 IV: 1000ml; Total: 1000ml. as6 04:06 IV: 1000ml; Total: 2000ml. as6 11:35 IV: 1000ml; Total: 3000ml. jg9 Outcome: 03:20 Decision to Hospitalize by Provider. etelvina 04:07 Admitted to ER Hold. Please see [facility] for further documentation. 04:07 Condition: stable 04:07 Instructed on the need for admit. 15:00 Patient left the ED. jg9 Signatures: Dispatcher [employer] EDAdalid Cheung MD MD cha Pena, Laura, RN RN lp1 Arun Weston RN RN as6 Renae King RN RN jg9 Stephenie Kim
[2021-10-24 03:38] LABS: Barbiturates NEGATIVE (NEGATIVE); Benzodiazepines NEGATIVE (NEGATIVE); Cocaine NEGATIVE (NEGATIVE); METHAMPHETAM NEGATIVE (NEGATIVE); Methadone NEGATIVE (NEGATIVE); Opiates POSITIVE (NEGATIVE); Phencyclidine NEGATIVE (NEGATIVE); THC Cannibis NEGATIVE (NEGATIVE)
[2021-10-24] MEDS ORDERED: ONDANSETRON 4 MG/2 ML VIAL IV PRN (03:57)
[2021-10-24] MEDS: NA CHLORIDE 0.9% 1,000 ML IV SCH ×3 (04:00→20:50)
[2021-10-24] MEDS: HYDROMORPHONE HCL 2 MG/ML inj IV PRN ×4 (04:04→22:08)
[2021-10-24 04:17] VITALS: BMI 36.6
--- NOTE | 2021-10-24 04:36 | P.HP ---
Certification for Inpatient Patient admitted to: Inpatient With expected LOS: <2 Midnights Patient will require the following post-hospital care: None Practitioner: I am a practitioner with admitting privileges, knowledge of patient current condition, hospital course, and medical plan of care. Services: Services provided to patient in accordance with Admission requirements found in Title 42 Section 412.3 of the Code of Federal Regulations Patient History Date of Service: 10/24/21 Reason for admission: Pancreatitis History of Present Illness: Patient is a 40-year-old male with past medical history of hypertension and alcohol induced pancreatitis who presented to the ED with complaints of severe epigastric pain. He states the pain started about 1 day ago and he could not get it to go away. He reports some nausea but denies vomiting. Labs in the ED significant for lipase 433, serum alcohol 51, triglycerides 363. Abdomen pelvis CT negative. He was given Ativan, Zofran, Pepcid and Dilaudid with minimal improvement in pain. Patient has been admitted in the past for alcohol induced pancreatitis and subsequent alcohol withdrawal. Patient does not appear to be withdrawing at this time, however he likely will sometime during his stay. Patient states his alcohol consumption has increased. He cannot quantify the amount. Will admit patient for further evaluation and treatment. Allergies No Known Allergies Allergy (Unverified 05/31/12 20:12) Home Medications: Hydrocodone/Acetaminophen [Hydrocodone-Acetamin 5-325 mg] 1 tab PO Q6H PRN 02/11/19 Duloxetine HCl [Cymbalta] 20 mg PO DAILY 11/13/20 Folic Acid 1 mg PO DAILY #30 tablet 11/17/20 Lactobacillus Acidophilus [Acidophilus Lactobacilli] 1 each PO BID #60 capsule 11/17/20 Levetiracetam [Keppra] 500 mg PO BID #60 tablet 11/17/20 Metoprolol Tartrate [Lopressor*] 50 mg PO BID #60 tab 11/17/20 Pantoprazole [Protonix Tab*] 40 mg PO ACB #30 tab 11/17/20 Thiamine HCl [Vitamin B-1*] 100 mg PO BID #60 tablet 11/17/20 lisinopriL [Prinivil*] 10 mg PO BID #60 tab 11/17/20 - Past Medical/Surgical History Diabetic: No -: Hypertension -: Chronic pain -: Alcohol use -: History of gastric bypass -: Gastric bypass -: lumbar surgery Psychosocial/ Personal History: Patient is - Family History Mother -: Hypertension Father -: Heart disease, Diabetes - Social History Smoking Status: Light Tobacco smoker (1-9 cigarettes/day) Alcohol use: Yes CD- Drugs: No Caffeine use: Yes Place of Residence: Home Review of Systems Cardiovascular: Chest Pain Gastrointestinal: Nausea, Abdominal Pain, Distention Physical Examination - Vital Signs Temperature: 98.6 F Blood Pressure: 162/110 Pulse: 91 Respirations: 18 Pulse Ox (%): 100 - Physical Exam General: Alert, In no apparent distress, Oriented x3, Obese HEENT: Atraumatic, PERRLA, Mucous membr. moist/pink, EOMI, Sclerae nonicteric Neck: Supple, 2+ carotid pulse no bruit, No LAD, Without JVD or thyroid abnormality Respiratory: Clear to auscultation bilaterally, Normal air movement Cardiovascular: Regular rate/rhythm, Normal S1 S2 Gastrointestinal: Normal bowel sounds, No masses, No rebound, No guarding, Tenderness Musculoskeletal: No tenderness Integumentary: No rashes Neurological: Normal speech, Normal strength at 5/5 x4 extr, Normal tone, Normal affect - Studies Laboratory Data (last 24 hrs) 10/24/21 02:07: Triglycerides Cancelled, Cholesterol Cancelled, HDL Cholesterol Cancelled, Cholesterol/HDL Ratio Cancelled 10/24/21 01:54: Sodium 135 L, Potassium 3.9, BUN 5 L, Creatinine 0.71, Glucose 150 H, Total Bilirubin 0.4, AST 57 H, ALT 55, Alkaline Phosphatase 163 H, Triglycerides 363 H, Cholesterol 160, HDL Cholesterol 33 L, Cholesterol/HDL Ratio 4.85, Lipase 433 H 10/24/21 01:54: WBC 8.7, Hgb 12.4 L, Hct 37.2 L, Plt Count 276 Assessment and Plan - Problems (Diagnosis) (1) Acute alcoholic pancreatitis Current Visit: Yes Status: Acute Qualifiers: Acute pancreatitis complication: no infection or necrosis Qualified Code(s): K85.20 - Alcohol induced acute pancreatitis without necrosis or infection (2) Alcohol abuse Current Visit: Yes Status: Chronic (3) Hypertension Current Visit: Yes Status: Chronic Qualifiers: Hypertension type: primary hypertension Qualified Code(s): I10 - Essential (primary) hypertension - Plan We will keep patient n.p.o., continue IV fluids and pain medication/antiemetics. Will trend lipase and triglycerides. Patient is not showing any signs of alcohol withdrawal at this time but will continue to monitor. Ativan as needed. Lovenox for DVT prophylaxis - Advance Directives Does patient have a Living Will: No Does patient have a Durable POA for Healthcare: No - Code Status/Comfort Care Code Status Assessed: Yes (Full) Critical Care: No Time Spent Managing Pts Care (In Minutes): 70
[2021-10-24] MEDS ORDERED: HYDROMORPHONE HCL 1 MG/ML INJ ONE (07:34)
[2021-10-24] MEDS ORDERED: PROMETHAZINE INJ 25 MG/ML AMP ONE (07:34)
--- NOTE | 2021-10-24 08:28 | EKG ---
Test Date: 2021-10-24 Test Time: 03:04:39 Tobacco Weigher: MEASUREMENT RESULTS: Intervals: Rate: 86 WY: 122 QRSD: 86 QT: 362 QTc: 433 Brogue: P: 48 WY: 122 QRS: 3 T: 6 INTERPRETIVE STATEMENTS: Normal sinus rhythm Normal ECG Compared to ECG 10/24/2021 03:03:36 No significant changes Electronically Signed On 10-24-21 08:27:47 CDT by Mynor Brennan
--- NOTE | 2021-10-24 08:29 | EKG ---
Test Date: 2021-10-24 Test Time: 03:03:36 Lie Detector Operator: MEASUREMENT RESULTS: Intervals: Rate: 81 WY: 124 QRSD: 84 QT: 348 QTc: 404 Rosanky: P: 47 WY: 124 QRS: 4 T: 0 INTERPRETIVE STATEMENTS: Normal sinus rhythm Normal ECG Compared to ECG 09/07/2021 14:19:36 Sinus tachycardia no longer present Electronically Signed On 10-24-21 08:27:48 CDT by Mynor Brennan
[2021-10-24] MEDS: ENOXAPARIN 40 MG/0.4 ML SQ SCH (09:00)
[2021-10-24] MEDS ORDERED: HYDROMORPHONE HCL 2 MG/ML inj ONE (10:30)
--- NOTE | 2021-10-24 10:58 | RAD REPORT ---
EXAM DESCRIPTION: CT - Abdomen Pelvis W Contrast - 10/24/2021 4:39 am CLINICAL HISTORY: The patient is 40 years old and is Male; ABD PAIN TECHNIQUE: Axial computed tomography images of the abdomen and pelvis with intravenous contrast. S agittal and coronal reformatted images were created and reviewed. This CT exam was performed using one or more of the following dose reduction techniques: automated exposure control, adjustment of t he mA and/or kV according to patient size, and/or use of iterative reconstruction technique. COMPARISON: CT abdomen pelvis September 07, 2021. FINDINGS: Lung bases: Unremarkable. No mass. No consolidation. ABDOMEN: Liver: Enlarged fatty liver. Gallbladder and bile ducts: Unremarkable. No calcified stones. No ductal dilation. Pancreas: Thick-walled pancreatic tail pseudocyst, decreased in size from the prior exam now oskar uring 6.5 cm. Peripancreatic fat stranding may indicate recurrent mild acute pancreatitis. No pancreatic duct dilatation. Spleen: Unremarkable. No splenomegaly. Adrenals: Unremarkable. No mass. Kidneys and ureters: Focally dilated distal left ureter again visualized. No solid mass. No hyd ronephrosis or ureter stone. Stomach and bowel: No bowel dilatation or obstruction. No bowel wall thickening. Prior gastric bypass. PELVIS: Appendix: The visualized appendix is normal. No pericecal inflammation to suggest acute appendici tis. Bladder: Unremarkable. No mass. Reproductive: Unremarkable as visualized. ABDOMEN and PELVIS: Intraperitoneal space: Unremarkable. No free air. No significant fluid collection. Bones/joints: L5-S1 degenerative disc disease. Lower thoracic vertebral osteophytes. No acute fracture. No dislocation. Soft tissues: Unremarkable. Vasculature: Anterior abdominal varices. No abdominal aortic aneurysm. Lymph nodes: No pathologically enlarged lymph nodes. IMPRESSION: 1. Thick-walled pancreatic tail pseudocyst, decreased in size from the prior exam now measuring 6.5 cm. Mild peripancreatic fat stranding may indicate recurrent acute pancreatitis. 2. Enlarged fatty liver. 3. Additional non-emergent findings as above. Electronically signed by: Judie Leary MD 10/24/2021 4:14 AM CDT Due to temporary technical issues with the PACS/Fluency reporting system, reports are being signed by the in house radiologists without review as a courtesy to insure prompt reporting. The interpreting radiologist is fully responsible for the content of the report.
[2021-10-24] MEDS ORDERED: ENOXAPARIN 40 MG/0.4 ML SQ ONE (11:16)
[2021-10-24] MEDS: LORazepam 2 MG/ML VIAL IV PRN ×2 (14:15→22:08)
--- NOTE | 2021-10-24 15:01 | RAD REPORT ---
EXAM DESCRIPTION: RAD - Chest Single View - 10/24/2021 2:37 am CLINICAL HISTORY: Cough; Abdominal distention COMPARISON: Chest 1 View AP 09/07/[address] chest 11/08/2020 TECHNIQUE: Chest 1 View AP FINDINGS: Moderate decreased inspiration (decreased lung volumes) makes evaluation more difficult. Heart size appears upper limits normal and may be partly due to portable AP technique and decreased i nspiration (decreased lung volumes) . Lungs clear without evidence of consolidation, mass, or significant pulmonary edema. No significant pleural effusion or pneumothorax. Bones unremarkable. IMPRESSION: Unremarkable chest radiograph. Electronically signed by: Sam Laguna MD 10/24/2021 3:09 AM CDT Due to temporary technical issues with the PACS/Fluency reporting system, reports are being signed by the in house radiologists without review as a courtesy to insure prompt reporting. The interpreting radiologist is fully responsible for the content of the report.
[2021-10-24] MEDS ORDERED: HYDRALAZINE HCL 20 MG/ML VIAL IV PRN (17:45)
--- NOTE | 2021-10-24 19:58 | P.PN ---
Date of Service: 10/24/21 Patient seen and examined. He is complaining of abdominal pain. Diagnosis: Acute pancreatitis History of alcohol abuse Morbid obesity Plan: Supportive measures Start clear liquid diet and advance as tolerated. Check lipase in a.m. Monitor for alcohol withdrawal.
[2021-10-24] MEDS ORDERED: FENTANYL CITR 100 MCG/2 ML IV ONE (20:16)
[2021-10-24] MEDS: lisinopriL 10 MG TAB PO SCH (20:37)
[2021-10-24] MEDS: METOPROLOL TAR 50 MG TAB PO SCH (20:37)
[2021-10-25] MEDS: HYDROMORPHONE HCL 2 MG/ML inj IV PRN ×2 (03:19→08:45)
[2021-10-25] MEDS: LORazepam 2 MG/ML VIAL IV PRN ×2 (03:20→08:50)
[2021-10-25] MEDS: NA CHLORIDE 0.9% 1,000 ML IV SCH (04:45)
[2021-10-25 04:54] LABS: Absolute Lymphocytes (CBC) 0.8 K/uL (0.7-4.9); Hematocrit 32.6 % (39.6-49.0); Lymphocytes % 12.5 % (15.3-44.8); MPV 7.2 fL (7.6-11.3); RBC Red Blood Cell Count 3.99 M/uL (4.33-5.43)
[2021-10-25 05:12] LABS: ALT/SGPT 38 U/L (12-78); AST/SGOT 28 U/L (15-37); Albumin 2.9 g/dL (3.4-5.0); Alkaline Phosphatase 132 U/L (45-117); BUN Blood Urea Nitrogen 6 mg/dL (7-18); Bicarbonate 30 mmol/L (21-32); Bilirubin Total 1.2 mg/dL (0.2-1.0); Glucose Level 125 mg/dL (74-106); HDL Cholesterol 31 mg/dL (40-60); LDL Cholesterol, Calculated 45 mg/dL (<130); Lipase 286 U/L (73-393); Potassium 3.7 mmol/L (3.5-5.1); Protein, Total 6.9 g/dL (6.4-8.2); Sodium Level 136 mmol/L (136-145)
[2021-10-25] MEDS: METOPROLOL TAR 50 MG TAB PO SCH (08:44)
[2021-10-25] MEDS: lisinopriL 10 MG TAB PO SCH (08:45)
[2021-10-25] MEDS: ENOXAPARIN 40 MG/0.4 ML SQ SCH (08:45)
[2021-10-25 08:54] VITALS: BP 177/110
--- NOTE | 2021-10-25 09:11 | P.DS ---
Admission Date: 10/24/21 Discharge Date: 10/25/21 Disposition: ROUTINE DISCHARGE Discharge Condition: FAIR Reason for Admission: Pancreatitis - Problems (1) Acute alcoholic pancreatitis Status: Acute Qualifiers: Acute pancreatitis complication: no infection or necrosis Qualified Code(s): K85.20 - Alcohol induced acute pancreatitis without necrosis or infection (2) Hypertriglyceridemia Status: Acute Brief History of Present Illness: Patient is a 40-year-old male with past medical history of hypertension and alcohol induced pancreatitis who presented to the ED with complaints of severe epigastric pain. He reported some nausea but denied vomiting. Labs in the ED significant for lipase 433, serum alcohol 51, triglycerides 363. Abdomen pelvis CT negative. He was given Ativan, Zofran, Pepcid and Dilaudid with minimal improvement in pain. Patient has been admitted in the past for alcohol induced pancreatitis and subsequent alcohol withdrawal. Patient was not withdrawing from alcohol during examination in the ED. Patient hospitalized for further management. Hospital Course: Patient admitted to the medical floor and treated with supportive measures include IV fluids, IV Dilaudid as needed for pain. Lipase level was monitored w hich resolved with supportive measures. Patient tolerated diet. Noted CT abdomen and pelvis did not show any radiographic evidence of acute pancreatitis. He did not go into alcohol withdrawal. Patient symptoms clinically improved and deemed stable for discharge. Vital Signs/Physical Exam: Temp Pulse Resp BP Pulse Ox 97.6 F 93 H 17 177/110 H 95 10/25/21 04:00 10/25/21 08:45 10/25/21 08:45 10/25/21 08:45 10/25/21 04:00 General: Alert, In no apparent distress, Oriented x3 HEENT: Mucous membr. moist/pink Neck: JVD not distended Respiratory: Clear to auscultation bilaterally, Normal air movement Cardiovascular: No edema, Regular rate/rhythm, Normal S1 S2 Gastrointestinal: Normal bowel sounds, Soft and benign, Non-distended Musculoskeletal: No swelling Integumentary: No rashes Neurological: Normal strength at 5/5 x4 extr Laboratory Data at Discharge: WBC 6.5 K/uL (4.3-10.9) D 10/25/21 04:38 Hgb 10.7 g/dL (13.6-17.9) L 10/25/21 04:38 Hct 32.6 % (39.6-49.0) L 10/25/21 04:38 Plt Count 143 K/uL (152-406) L D 10/25/21 04:38 Sodium 136 mmol/L (136-145) 10/25/21 04:38 Potassium 3.7 mmol/L (3.5-5.1) 10/25/21 04:38 BUN 6 mg/dL (7-18) L 10/25/21 04:38 Creatinine 0.72 mg/dL (0.55-1.3) 10/25/21 04:38 Glucose 125 mg/dL (74-106) H 10/25/21 04:38 Total Bilirubin 1.2 mg/dL (0.2-1.0) H 10/25/21 04:38 AST 28 U/L (15-37) 10/25/21 04:38 ALT 38 U/L (12-78) 10/25/21 04:38 Alkaline Phosphatase 132 U/L (45-117) H 10/25/21 04:38 Triglycerides 231 mg/dL (<150) H 10/25/21 04:38 Cholesterol 122 mg/dL (<200) 10/25/21 04:38 HDL Cholesterol 31 mg/dL (40-60) L 10/25/21 04:38 Cholesterol/HDL Ratio 3.94 10/25/21 04:38 Lipase 286 U/L (73-393) 10/25/21 04:38 Home Medications: Metoprolol Tartrate [Lopressor*] 50 mg PO BID #60 tab 11/17/20 lisinopriL [Prinivil*] 10 mg PO BID #60 tab 11/17/20 Hydrocodone 5/APAP 325 [[place] 5/325] 1 tab PO Q6H PRN #15 tab 10/25/21 New Medications: Hydrocodone 5/APAP 325 [[place] 5/325] 1 tab PO Q6H PRN #15 tab PRN Reason: Pain Followup: Sumeet Lazar MD [Primary Care Provider] - (Call to schedule appointment) Time spent managing pt's care (in minutes): 34
[2021-10-25 10:02] VITALS: TEMP 98.5
[2021-10-25 11:02] VITALS: O2SAT 98
== END 2021-10-25 10:45 | disposition home or self-care (01) | DRG 440 ==
LOC: ER 01:26 → ERHOLD 03:26 → 2ND 14:49
PROVIDERS: ADMIT Internal Medicine; ATTEND Internal Medicine
DX: K85.20 Alcohol induced acute pancreatitis without necrosis or infection (principal); I10 Essential (primary) hypertension; E78.1 Pure hyperglyceridemia; E66.01 Morbid (severe) obesity due to excess calories; Z68.36 Body mass index [BMI] 36.0-36.9, adult; F17.210 Nicotine dependence, cigarettes, uncomplicated; Z98.84 Bariatric surgery status; Z20.822 Contact with and (suspected) exposure to COVID-19
CPT/HCPCS: 36415; 71045; 74177; 80053; 80061; 80307; 80320; 81003; 83690; 84484; 85025; 93005; 99285; J0360; J1170; J1650; J2405; J2550; J3010; J7030; Q9967; U0003

== ENCOUNTER 2022-03-25 14:43 | Inpatient (IN) | payer BC, SELFPAY ==
--- OUTSIDE RECORDS SUMMARY | 2022-03-25 14:47 | XMS REPORT | Continuity of Care Document ---
:1980 Author Organization [facility] t Address [address] [place] [address] Care Team Providers Name Role Phone PCP, PATIENT DOES NOT HAVE A Primary Care Physician Karina Hoover MD, Sendil K.H. Attending Clinician RAJEEV HOOVER.HRosita Attending Clinician Unavailable DONELL WOODRUFF Attending Clinician Unavailable Vincent Patel Attending Clinician DONELL WOODRUFF Admitting Clinician Unavailable Vincent Patel Admitting Clinician Payers Payer Name Policy Type Policy Number Effective Date Expiration Date [facility] [id number] 2019 PPO 00:00:00 Problems Condition Condition Condition Status Onset Resolution Last Treating Co mments Source Name Details Category Date Date Treatment Clinician Date 00167, [id number], Diagnosis Active 2016-02-07 Me moria MORBID MORBID 6-17 21:59:00 l OBESITY OBESITY 00:00: [place] Active 00 01/06/2016 [facility] [id number], [id number], Diagnosis Active 2015-12-05 Me moria REFLUX REFLUX 5-11 11:03:00 l Active 00:00: [place] 11/30/2015 00 [facility] 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 00:26:43 l interverte on of Andrae n bral disc interverte (disorder) bral disc (disorder) Active Problem 02/05/2016 [facility] Morbid Morbid Problem Active 2016-02-05 Kwadwo jase obesity obesity 00:26:43 l (disorder) (disorder) He rmann Active Problem 02/05/2016 [facility] ILLNESS, ILLNESS, Diagnosis Active 2016-02-07 Memoria UNSPECIFIE UNSPECIFIE 21:59:00 l D D Active [facility] Acid Acid Problem Resolve 2016-02-05 Kwadwo jase reflux reflux d 00:26:43 l (finding) (finding) Herm johnny Resolved Problem 02/05/2016 [facility] Hypertensi Hypertens Problem Active 2016-02-05 Memoria ve kallie 00:26:43 l disorder, disorder, Herm johnny systemic systemic arterial arterial (disorder) (disorder) Active Problem 02/05/2016 [facility] C/O - low C/O - low Problem Active 2016-02-05 Memoria back pain back pain 00:26:43 l (context-d (context-d He rmann ependent ependent category) category) Active Problem 02/05/2016 [facility] Allergies, Adverse Reactions, Alerts Allergy Allergy Status Severity Reaction(s) Onset Inactive Treating Comm ents Source Name Type Date Date Clinician NO KNOWN Drug Active [facility] ALLERGSHERYL Davis ity of [facility] Social History Social Habit Start Date Stop Date Quantity Comments Source Social History 2016-01-19 2016-01-19 [facility] ermann 16:22:14 16:22:14 Medications Ordered [...] 8:59:00 CDT Enoxaparin No Notes: Memor ia 02-01 (Same as: l 04:30: Lovenox) Ketorolac No 4 days Memor ia 01-31 l 20:00: MEDICATION WASTE Product Size: 30 mg Product Wasted: ___ mg Sodium No 25 mL, Memoria Chloride 01-31 Route: IV, l 0.9% IV 19:05: Start date: 02/01/16 14:05:00 CDT, Duration: 30 day, Stop date: 03/02/16 14:04:00 CDT, PRN Line Flush BD Normal No Notes: Memori a Saline 7-13 (Same as: l Flush 19:05: BD [place] 00 Posiflush) BD Normal No Notes: Memori a Saline 7-13 (Same as: l Flush 19:04: BD [place] Posiflush) Dilaudid No Notes: Memoria 7-13 (Same as: l 16:37: Dilaudid) Lactated No 1,000 mL, Kwadwo jase Ringers 01-31 Rate: 80 l Injection 16:34: ml/hr, Andrae n IV 1000 mL 00 Infuse over: 12.5 hr, Route: IV, Dosing Weight 148.182 kg, Total Volume: 1,000, Priority: STAT, Start date: 02/01/16 11:34:00 CDT, Duration: 30 day, Stop date: 03/02/16 11:33:00 CDT Calcium No 1,000 mL, Memor ia Chloride 01-31 Rate: 125 l 0.0014 16:34: ml/hr, MEQ/ML / 00 Infuse Potassium over: 8 Chloride hr, Route: 0.004 IV, Dosing MEQ/ML / Weight Sodium 148.182 Chloride kg, Total 0.103 Volume: MEQ/ML / 1,000, Sodium Start Lactate date: 0.028 02/01/16 MEQ/ML 11:34:00 Injectable CDT, Stop Solution date: 02/02/16 9:00:00 CDT Promethazin No 12.5 mg, Me moria e 7-13 50 mL, l 16:34: Route: [place] 00 IVPB, Drug form: SOLN, Q4H, Dosing Weight 148.182, kg, PRN Nausea & Vomiting, Start date: 02/01/16 11:34:00 CDT, Duration: 30 day, Stop date: 03/02/16 11:33:00 CDT Ondansetron No Notes: Kwadwo jase 7-13 (Same as: l 16:34: Zofran) [place] 00 MEDICATION WASTE Product Size: 4 mg Product Wasted: ___ mg Hydromorpho 2016- No Notes: Kwadwo jase ne 7-13 (Same as: l 16:33: Dilaudid) [place] 00 Naloxone No Notes: Memoria 7-13 Same as l 16:33: Narcan [place] 00 Meperidine No Notes: Memor ia 7-13 (Same As: l 16:33: Demerol) Flumazenil No Notes: Memor ia 7-13 (Same as: l 16:33: Romazicon) [place] 00 Diphenhydra No Notes: Kwadwo jase mine -13 (Same as: l 16:33: Benadryl) Ondansetron No Notes: Kwadwo jase 7-13 (Same as: l 16:33: Zofran) [place] 00 MEDICATION WASTE Product Size: 4 mg Product Wasted: ___ mg Labetalol No Notes: Memori a 01-31 (Same as: l 16:33: Normodyne, [place] 00 Trandate) Push over 2 minutes Give bolus over 2-3 minutes. Ketorolac No 4 days Memor ia - l 16:33: MEDICATION [place] 00 WASTE Product Size: 30 mg Product Wasted: ___ mg Morphine No Notes: Memoria 01-31 (Same l 16:33: as:MORPhin [place] 00 e Sulfate) Fentanyl No Notes: Memoria 01-31 (Same as: l 16:33: Sublimaze) [place] 00 Preservati ve free. Naloxone No Notes: Memoria 7-13 Same as l 12:44: Narcan [place] 00 Flumazenil No Notes: Memor ia 7-13 (Same as: l 12:44: Romazicon) Ondansetron No Notes: Kwadwo jase 7-13 (Same as: l 12:44: Zofran) [place] 00 MEDICATION WASTE Product Size: 4 mg Product Wasted: ___ mg Ancef No Notes: Memoria 7-13 Same as: l 05:00: Ancef Ondansetron No Notes: Kwadwo jase 5-13 (Same as: l 13:11: Zofran) MEDICATION WASTE Product Size: 4 mg Product Wasted: ___ mg Promethazin No Notes: Do M emoria e 5-13 not give l 13:11: IV push. (Same as: Phenergan) Naloxone No Notes: Memoria 5-13 Same as l 13:11: Narcan Ephedrine No Notes: Memori a 5-13 (Same as: l 13:11: ePHEDrine Sulfate) Diphenhydra No Notes: Kwadwo jase mine 5-13 (Same as: l 13:11: Benadryl) Flumazenil No Notes: Memor ia 5-13 (Same as: l 13:11: Romazicon) Sodium No 500 mL, Memoria Chloride 5-13 Rate: 125 l 0.154 13:11: ml/hr, [place] MEQ/ML 00 Infuse Injectable over: 4 Solution [...] Systolic (mm Hg) 2016-02-03 01:00:00 Kwadwo rial [place] Diastolic (mm Hg) 2016-02-03 01:00:00 Mem orial [place] Heart Rate 2016-02-03 01:00:00 [facility] [place] Temperature Oral (F) 2016-02-03 01:00:00 98 F Memorial [place] Respitory Rate 2016-02-03 01:00:00 Memori al [place] Temperature Oral (F) 2016-02-02 20:58:00 98.1 F [facility] [place] Respitory Rate 2016-02-02 20:58:00 Memori al [place] Systolic (mm Hg) 2016-02-02 20:58:00 Kwadwo rial [place] Diastolic (mm Hg) 2016-02-02 20:58:00 Mem orial [place] Heart Rate 2016-02-02 20:58:00 Memorial [place] Systolic (mm Hg) 2016-02-02 17:07:00 Kwadwo rial [place] Diastolic (mm Hg) 2016-02-02 17:07:00 Mem orial [place] Heart Rate 2016-02-02 17:07:00 Memorial [place] Respitory Rate 2016-02-02 17:07:00 Memori al [place] Temperature Oral (F) 2016-02-02 17:07:00 98.2 F [facility] [place] Height 2016-01-19 15:41:00 180.34 cm Memorial [place] Weight 2016-01-19 15:41:00 [facility] [place] BMI Calculated 2016-01-19 15:41:00 Memori al [place] Weight 2015-12-02 12:45:00 Memorial [place] Height 2015-12-02 12:45:00 182.88 cm [facility] [place] BMI Calculated 2015-12-02 12:45:00 Memori al [place] Procedures Procedure Date / Time Performed Performing Clinician [facility] e Epidural steroid Mandy Abebe n injection Incision and drainage of Memoria l [place] abscess of villa Encounters Start End Encounter Admission Attending Care Care Encounter Source Date/Time Date/Time Type Type Clinicians Facility Department ID 2020-04-14 2020-04-14 [id number] 00:00:00 00:00:00 Rajeev Lopez [id number] Edgardo [id number] Professio [id number] nal 059 Building 2020-01-15 2020-01-15 [id number] Univers 15:30:00 15:30:00 SENDIL [facility] 2019-12-24 2019-12-25 [facility] [id number] Univers 17:31:30 13:45:00 [facility] 2016-02-01 2016-02-03 Inpatient [facility] [id number] Memoria 16:34:00 02:41:00 r [place] 01 l [facility] 2016-02-01 2016-02-02 Outpatient [facility] [id number] 11:34:00 21:41:00 Vincent Funk 2015-12-02 2015-12-02 Bedded [facility] [id number] Memoria 12:06:00 14:05:00 Outpatient r [place] 00 l [facility] 2015-12-02 2015-12-02 Outpatient [facility] [id number] 07:06:00 09:05:00 Vincent Funk Results Test Description Test Time Test Comments Results Result Comments Source CHEM PANEL 2016-02-02 10:38:00 Test Item Value Reference Range Interpretation Comme nts eGFR (test code = eGFR) [facility] [id number] 10:38:00 Test Item Value Reference Range Interpretation Comments Creatinine Lvl (test code = Creatinine 0.79 0.50-1.40 Lvl) [facility] [id number] 10:38:00 Test Item Value Reference Range Interpretation Comments Glucose Lvl (test code = Glucose Lvl) 105 70-99 [facility]2016-07-14 10:38:00 Test Item Value Reference Range Interpretation Comments Calcium Lvl (test code = Calcium Lvl) 8.7 8.5-10.5 [facility]2016-07-14 10:38:00 Test Item Value Reference Range Interpretation Comments CO2 (test code = CO2) 23 24-32 [facility]2016-07-14 10:38:00 Test Item Value Reference Range Interpretation Comments Chloride Lvl (test code = Chloride Lvl) 108 95-109 [facility]2016-07-14 10:38:00 Test Item Value Reference Range Interpretation Comments Potassium Lvl (test code = Potassium 4.0 3.5-5.1 Lvl) [facility]2016-07-14 10:38:00 Test Item Value Reference Range Interpretation Comments Sodium Lvl (test code = Sodium Lvl) 142 135-145 [facility]2016-07-14 10:38:00 Test Item Value Reference Range Interpretation Comments BUN (test code = BUN) 12 7-22 [facility]2016-07-14 10:38:00 Test Item Value Reference Range Interpretation Comments AGAP (test code = AGAP) 15.0 10.0-20.[address] [id number] 10:38:00 Test Item Value Reference Range Interpretation Comments MCH (test code = MCH) 27.2 pg 27.0-31.[address] [facility] [facility] HospitalYpzfomcLFZSYMEZFT2140-06-82 10:38:00 Test Item Value Reference Range Interpretation Comments MCHC (test code = MCHC) 33.0 32.0-36.[address] [facility] H[id number] 10:38:00 Test Item Value Reference Range Interpretation Comments RDW (test code = RDW) 12.9 11.5-14.[address] [facility] [facility] HospitalBqzvehcSYUPVGUSFO4637-83-25 10:38:00 Test Item Value Reference Range Interpretation Comments Hgb (test code = Hgb) 13.4 14.0-18.[address] [facility] HospitalXglggarLKJNOTYMOW7508-42-67 10:38:00 Test Item Value Reference Range Interpretation Comments Hct (test code = Hct) 40.7 42.0-54.[address] [facility] [facility] H[id number] 10:38:00 Test Item Value Reference Range Interpretation Comments MCV (test code = MCV) 82.6 80.0-94.[address] [facility] [facility] [facility] HospitalNgsvicyEFVPPVWIVB2526-88-33 10:38:00 Test Item Value Reference Range Interpretation Comments Platelet (test code = Platelet) 250 133-[address] [facility] Hospit[id number] 10:38:00 Test Item Value Reference Range Interpretation Comments MPV (test code = MPV) 7.8 7.4-10.[address] [facility] HospitalNpufiriMADVAKIRWJ1035-66-48 10:38:00 Test Item Value Reference Range Interpretation Comments WBC (test code = WBC) 12.3 3.7-10.[address] [facility] [facility] HospitalWfzjdgcTVWTIIQKYU7282-26-03 10:38:00 Test Item Value Reference Range Interpretation Comments RBC (test code = RBC) 4.93 4.70-6.[address] [facility] [facility] HospitalAmttanrLLIIMWHTNJ1686-26-49 10:38:00 Test Item Value Reference Range Interpretation Comments Segs-Bands # (test code = Segs-Bands #) 9.6 1.5-8.[address] [facility] [facility] HospitalJtflpqpFHMADYFZMU7180-14-98 10:38:00 Test Item Value Reference Range Interpretation Comments Lymphocytes # (test code = Lymphocytes 1.9 1.0-5.5 #) [facility] HospitalTawpmqpTPDIJBNQLL2084-96-46 10:38:00 Test Item Value Reference Range Interpretation Comments Monocytes # (test code 0.5 See_Comment [Aut omated message] The = Monocytes #) system which generated this result tra nsmitted reference range : <=0.8. The reference r frandy was not used to int erpret this result as normal/abnormal . [facility] HospitalXujkulwUAJXVGIKSB6203-90-98 10:38:00 Test Item Value Reference Range Interpretation Comments Eosinophils # (test code 0.0 See_Comment [A utomated message] The = Eosinophils #) system whic h generated this result tra nsmitted reference range : <=0.5. The reference r frandy was not used to int erpret this result as normal/abnormal . [facility] HospitalPzdkuarBZYWBBSFES6319-60-51 10:38:00 Test Item Value Reference Range Interpretation Comments Basophils # (test code 0.2 See_Comment [Aut omated message] The = Basophils #) system which generated this result tra nsmitted reference range : <=0.2. The reference r frandy was not used to int erpret this result as normal/abnormal . [facility] HospitalKbcabewRRGLSBVUGB5702-96-20 10:38:00 Test Item Value Reference Range Interpretation Comments Monocytes (test code = Monocytes) 4.3 2.0-12.[address] [facility] [facility] HospitalUgwhebbLHSKPXQYVM1860-79-71 10:38:00 Test Item Value Reference Range Interpretation Comments Eosinophils (test code = 0.0 See_Comment [A utomated message] The Eosinophils) system which ge nerated this result tra nsmitted reference range : <=4.0. The reference r frandy was not used to int erpret this result as normal/abnormal . [facility] HospitalOcjeqopZCVZCBIYFR0075-97-05 10:38:00 Test Item Value Reference Range Interpretation Comments Basophils (test code = 1.8 See_Comment [Aut omated message] The Basophils) system which ge nerated this result tra nsmitted reference range : <=1.0. The reference r frandy was not used to int erpret this result as normal/abnormal . [facility] HospitalMpqkmkmCFHWZITZSN1200-60-92 10:38:00 Test Item Value Reference Range Interpretation Comments Segs (test code = Segs) 78.6 45.0-75.0 [facility] HospitalGynxlseENWVMXNCQV9107-76-24 10:38:00 Test Item Value Reference Range Interpretation Comments Lymphocytes (test code = Lymphocytes) 15.3 20.0-40.[address] [facility] [facility] HospitalTdfhqviBWIWMVPTKV1923-02-35 10:38:00 Test Item Value Reference Range Interpretation Comments PTT (test code = PTT) 36.0 s 22.9-35.[address] [facility] [facility] HospitalNsidkmjJSVFAYQBWG8693-30-57 10:38:00 Test Item Value Reference Range Interpretation Comments PT (test code = PT) 15.5 s 12.0-14.[address] [facility] HospitalGlvqonzXOPDKYLEDG3214-90-68 10:38:00 Test Item Value Reference Range Interpretation Comments INR (test code = INR) 1.20 0.85-1.17 [facility] [id number] 13:22:00 Test Item Value Reference Range Interpretation Comments ABO/Rh (test code = ABO/Rh) A POS [facility] [employer] [id number] 13:22:00 Test Item Value Reference Range Interpretation Comments Antibody Scrn (test Negative (02/01/16 8:22 code = Antibody Scrn) AM) [facility] HospitalVpuaapwCMSPOQTJZV2283-89-01 16:50:00 Test Item Value Reference Range Interpretation Comments Segs-Bands # (test code = Segs-Bands #) 5.3 1.5-8.1 [facility] CenterAscwcaxTOZIJXJBPK8660-39-43 16:50:00 Test Item Value Reference Range Interpretation Comments Monocytes (test code = Monocytes) 4.8 2.0-12.0 [facility] HospitalTxmyfgvKNDBSVADTP4438-65-42 16:50:00 Test Item Value Reference Range Interpretation Comments Lymphocytes (test code = Lymphocytes) 29.4 20.0-40.0 [facility] CenterKvyirepZLCWODRDBG4790-88-07 16:50:00 Test Item Value Reference Range Interpretation Comments Segs (test code = Segs) 64.6 45.0-75.0 [facility] CenterPARATHYROID [id number] 16:50:00 Test Item Value Reference Range Interpretation Comments PTH Intact (test code = PTH Intact) 59.5 11.1-79.5 [facility] CenterSPECIAL [id number] 16:50:00 Test Item Value Reference Range Interpretation Comments Hgb A1C (test code = Hgb A1C) 5.5 [facility] CenterCHEM [id number] 16:50:00 Test Item Value Reference Range Interpretation Comments Vitamin D, 25-OH, Total (test code = 24 30-100 Vitamin D, 25-OH, Total) [facility] [id number] 16:50:00 Test Item Value Reference Range Interpretation Comments ALT (test code = ALT) 35 See_Comment [Auto mated message] The system which ge nerated this result transmit elpidio reference range : <=65. The reference range was not used to interpr et this result as azra l/abnormal. [facility] [id number] 16:50:00 Test Item Value Reference Range Interpretation Comments CO2 (test code = CO2) 30 24-32 [facility] [id number] 16:50:00 Test Item Value Reference Range Interpretation Comments Albumin Lvl (test code = Albumin Lvl) 3.9 3.5-5.0 [facility] [id number] 16:50:00 Test Item Value Reference Range Interpretation Comments AST (test code = AST) 23 See_Comment [Auto mated message] The system which ge nerated this result transmit elpidio reference range : <=37. The reference range was not used to interpr et this result as azra l/abnormal. [facility]2016-06-30 16:50:00 Test Item Value Reference Range Interpretation Comments eGFR (test code = eGFR) 104 [facility]2016-06-30 16:50:00 Test Item Value Reference Range Interpretation Comments Creatinine Lvl (test code = Creatinine 0.96 0.50-1.40 Lvl) [facility]2016-06-30 16:50:00 Test Item Value Reference Range Interpretation Comments BUN (test code = BUN) 16 7-22 [facility]2016-06-30 16:50:00 Test Item Value Reference Range Interpretation Comments Glucose Lvl (test code = Glucose Lvl) 103 70-99 [facility]2016-06-30 16:50:00 Test Item Value Reference Range Interpretation Comments Sodium Lvl (test code = Sodium Lvl) 140 135-145 [facility]2016-06-30 16:50:00 Test Item Value Reference Range Interpretation Comments Potassium Lvl (test code = Potassium 4.2 3.5-5.1 Lvl) [facility]2016-06-30 16:50:00 Test Item Value Reference Range Interpretation Comments Chloride Lvl (test code = Chloride Lvl) 102 95-109 [facility]2016-06-30 16:50:00 Test Item Value Reference Range Interpretation Comments Calcium Lvl (test code = Calcium Lvl) 9.4 8.5-10.5 [facility]2016-06-30 16:50:00 Test Item Value Reference Range Interpretation Comments Bili Total (test code = Bili Total) 0.8 0.2-1.3 [facility]2016-06-30 16:50:00 Test Item Value Reference Range Interpretation Comments Alk Phos (test code = Alk Phos) 137 39-136 [facility]2016-06-30 16:50:00 Test Item Value Reference Range Interpretation Comments Total Protein (test code = Total 8.0 6.4-8.4 Protein) [facility]2016-06-30 16:50:00 Test Item Value Reference Range Interpretation Comments B/C Ratio (test code = B/C Ratio) 17 6-25 [facility]2016-06-30 16:50:00 Test Item Value Reference Range Interpretation Comments AGAP (test code = AGAP) 12.2 10.0-20.0 [facility]2016-06-30 16:50:00 Test Item Value Reference Range Interpretation Comments A/G Ratio (test code = A/G Ratio) 1.0 0.7-1.6 [facility]2016-06-30 16:50:00 Test Item Value Reference Range Interpretation Comments Globulin (test code = Globulin) 4.1 2.0-4.[address] [facility] H[id number] 16:50:00 Test Item Value Reference Range Interpretation Comments PTT (test code = PTT) 38.8 s 22.9-35.[address] [facility] [facility] Hos[id number] 16:50:00 Test Item Value Reference Range Interpretation Comments PT (test code = PT) 14.1 s 12.0-14.[address] [facility] [facility] H[id number] 16:50:00 Test Item Value Reference Range Interpretation Comments INR (test code = INR) 1.06 0.85-1.[address] [facility] [facility] H[id number] 16:50:00 Test Item Value Reference Range Interpretation Comments RDW (test code = RDW) 12.9 11.5-14.[address] [facility] [facility] HospitalWaecabwTRSDDBFNXF4329-87-07 16:50:00 Test Item Value Reference Range Interpretation Comments Platelet (test code = Platelet) 277 133-[address] [facility] Hospit[id number] 16:50:00 Test Item Value Reference Range Interpretation Comments MCHC (test code = MCHC) 33.0 32.0-36.[address] [facility] H[id number] 16:50:00 Test Item Value Reference Range Interpretation Comments MPV (test code = MPV) 7.1 7.4-10.[address] [facility] [facility] H[id number] 16:50:00 Test Item Value Reference Range Interpretation Comments MCV (test code = MCV) 83.0 80.0-94.[address] [facility] Hosp[id number] 16:50:00 Test Item Value Reference Range Interpretation Comments MCH (test code = MCH) 27.4 pg 27.0-31.[address] [facility] [facility] HospitalRvqaltiVRIMIMEQIC8769-55-20 16:50:00 Test Item Value Reference Range Interpretation Comments Hct (test code = Hct) 44.5 42.0-54.[address] [facility] [facility] HospitalKvuxuayEVHWXLMIZF0403-72-29 16:50:00 Test Item Value Reference Range Interpretation Comments Hgb (test code = Hgb) 14.7 14.0-18.[address] [facility] [facility] HospitalJljpaqmGMDWJYPIHR6716-29-99 16:50:00 Test Item Value Reference Range Interpretation Comments RBC (test code = RBC) 5.36 4.70-6.[address] [facility] [facility] HospitalJvormpgGTZHJGUTTL9883-62-34 16:50:00 Test Item Value Reference Range Interpretation Comments WBC (test code = WBC) 8.3 3.7-10.[address] [facility] [facility] H[id number] 16:50:00 Test Item Value Reference Range Interpretation Comments Monocytes # (test code 0.4 See_Comment [Aut omated message] The = Monocytes #) system which generated this result tra nsmitted reference range : <=0.8. The reference r frandy was not used to int erpret this result as normal/abnormal . [facility] Hospit[id number] 16:50:00 Test Item Value Reference Range Interpretation Comments Basophils # (test code 0.0 See_Comment [Aut omated message] The = Basophils #) system which generated this result tra nsmitted reference range : <=0.2. The reference r frandy was not used to int erpret this result as normal/abnormal . [facility] HospitalCthnbiyTVINKBXVLF4280-12-40 16:50:00 Test Item Value Reference Range Interpretation Comments Eosinophils (test code = 0.7 See_Comment [A utomated message] The Eosinophils) system which ge nerated this result tra nsmitted reference range : <=4.0. The reference r frandy was not used to int erpret this result as normal/abnormal . [facility] Hos[id number] 16:50:00 Test Item Value Reference Range Interpretation Comments Basophils (test code = 0.5 See_Comment [Aut omated message] The Basophils) system which ge nerated this result tra nsmitted reference range : <=1.0. The reference r frandy was not used to int erpret this result as normal/abnormal . [id number] 16:50:00 Test Item Value Reference Range Interpretation Comments Eosinophils # (test code 0.1 See_Comment [A utomated message] The = Eosinophils #) system whic h generated this result tra nsmitted reference range : <=0.5. The reference r frandy was not used to int erpret this result as normal/abnormal . [facility] [id number] 16:50:00 Test Item Value Reference Range Interpretation Comments Lymphocytes # (test code = Lymphocytes 2.4 1.0-5.5 #) [facility] AND [id number] 16:15:00 Test Item Value Reference Range Interpretation Comments UA Urobilinogen (test code = UA <=1.0 mg/dL 0.1-1.0 Urobilinogen) [facility] [id number] 16:15:00 Test Item Value Reference Range Interpretation Comments UA Ketones (test code = UA Ketones) Negative [facility] AND [id number] 16:15:00 Test Item Value Reference Range Interpretation Comments Micro? (test code = Performed *NA*(01/19/16 Micro?) 11:15 AM) [facility] AND [id number] 16:15:00 Test Item Value Reference Range Interpretation Comments UA Color (test code = Light Yellow UA Color) *NA*(01/19/16 11:15 AM) [facility] [id number] 16:15:00 Test Item Value Reference Range Interpretation Comments UA Turbidity (test code = Clear (01/19/16 11:15 UA Turbidity) AM) [facility] AND [id number] 16:15:00 Test Item Value Reference Range Interpretation Comments UA Spec Grav (test code = UA Spec Grav) 1.017 [facility] [id number] 16:15:00 Test Item Value Reference Range Interpretation Comments UA Protein (test code = UA Negative mg/dL Protein) [facility] [id number] 16:15:00 Test Item Value Reference Range Interpretation Comments UA Leuk Est (test Negative (01/19/16 11:15 code = UA Leuk Est) AM) [facility] [id number] 16:15:00 Test Item Value Reference Range Interpretation Comments UA Bili (test code = Negative *NA*(01/19/16 UA Bili) 11:15 AM) [facility] AND [id number] 16:15:00 Test Item Value Reference Range Interpretation Comments UA Glucose (test code = UA Negative mg/dL Glucose) [facility] AND [id number] 16:15:00 Test Item Value Reference Range Interpretation Comments UA pH (test code = UA pH) 5.0 5.0-8.0 [facility] AND [id number] 16:15:00 Test Item Value Reference Range Interpretation Comments UA RBC (test code = no gt See_Comment [Automa elpidio message] The UA RBC) system which ge nerated this result transmit elpidio reference range : <=2. The reference range was not used to interpr et this result as azra l/abnormal. [facility] AND [id number] 16:15:00 Test Item Value Reference Range Interpretation Comments UA Mucus (test code = UA Mucus) Few /LPF [facility] AND [id number] 16:15:00 Test Item Value Reference Range Interpretation Comments UA Blood (test code = Small *ABN*(01/19/16 UA Blood) 11:15 AM) [facility] AND [id number] 16:15:00 Test Item Value Reference Range Interpretation Comments UA Nitrite (test code Negative (01/19/16 11:15 = UA Nitrite) AM) [facility]
[2022-03-25 15:00] LABS: Urine Blood Negative (Negative); Urine Glucose Negative (Negative); Urine Protein Negative (Negative); Urine Specific Gravity <=1.005 (1.005-1.030)
[2022-03-25 15:17] LABS: Absolute Lymphocytes (CBC) 1.6 K/uL (0.7-4.9); Hematocrit 40.5 % (39.6-49.0); Lymphocytes % 15.9 % (15.3-44.8); MCV 82.3 fL (80-100); MPV 6.9 fL (7.6-11.3); RBC Red Blood Cell Count 4.92 M/uL (4.33-5.43)
[2022-03-25] MEDS ORDERED: FAMOTIDINE 20 MG/2 ML VIAL IV ONE (15:27)
[2022-03-25] MEDS ORDERED: NA CHLORIDE 0.9% 1,000 ML ONE ×2 (15:27→19:45)
[2022-03-25] MEDS ORDERED: ONDANSETRON 4 MG/2 ML VIAL ONE (15:27)
[2022-03-25] MEDS ORDERED: PROMETHAZINE INJ 25 MG/ML AMP ONE (15:27)
[2022-03-25 15:33] LABS: Albumin 3.7 g/dL (3.4-5.0); Bilirubin Total 0.6 mg/dL (0.2-1.0); Potassium 4.4 mmol/L (3.5-5.1); Protein, Total 7.6 g/dL (6.4-8.2)
[2022-03-25 15:37] LABS: Magnesium 1.9 mg/dL (1.8-2.4); Phosphorus 4.2 mg/dL (2.5-4.9)
[2022-03-25] MEDS ORDERED: KETOROLAC 30 MG/ML INJ ONE (16:22)
[2022-03-25] MEDS ORDERED: lisinopriL 10 MG TAB ONE (16:22)
[2022-03-25] MEDS ORDERED: LIDOCAINE VISCOUS 2% SOLN 15 ML UDC ONE (16:44)
[2022-03-25] MEDS ORDERED: SIMETHICONE 80 MG TAB ONE (16:44)
[2022-03-25] MEDS ORDERED: MAGNES/ALUMIN/SIMET 30ML UCUP ONE (16:44)
[2022-03-25] MEDS ORDERED: MEPERIDINE HCL 25 MG/ML SYR ONE ×2 (17:32→18:38)
--- NOTE | 2022-03-25 17:43 | RAD REPORT ---
EXAM DESCRIPTION: US - Abdomen Exam Limited - 03/25/2022 4:49 pm CLINICAL HISTORY: Abdominal pain. COMPARISON: 2020 FINDINGS: The gallbladder wall is not thickened. A gallstone is not seen. Small amount of gallbladder sludge The biliary tree is normal caliber. IMPRESSION: Small amount of gallbladder sludge
--- NOTE | 2022-03-25 17:43 | RAD REPORT ---
EXAM DESCRIPTION: CT - Abdomen Pelvis W Contrast - 03/25/2022 5:29 pm CLINICAL HISTORY: Abdominal pain COMPARISON: October 2021 TECHNIQUE: Computed axial tomography of the abdomen pelvis was obtained. 100 cc Isovue-300 was admin istered intravenously. Oral contrast was not requested which limits evaluation of bowel and appendix All CT scans are performed using dose optimization technique as appropriate and may include automated exposure control or mA/KV adjustment according to patient size. FINDINGS: 3.5 centimeter pancreatic tail pseudocyst has decreased in size. Mild to moderate strandin g within the peripancreatic fat. Fatty liver. Left upper quadrant varices. The spleen, adrenals and kidneys unremarkable. Postsurgical changes involve the stomach. Normal appendix. No evidence of diverticulitis. Small inguinal hernias Mild posterior subluxation L5 on S1 IMPRESSION: Dwkn-gn-teyitjha pancreatitis. 3.5 centimeter pancreatic pseudocyst has decreased in size
--- NOTE | 2022-03-25 17:57 | ER ---
Nurse's Notes [facility] Name: Marquise Jhaveri Age: 41 yrs Sex: Male : 1980 Arrival Date: 03/25/2022 Time: 14:44 Bed 18 Private MD: Sumeet Lazar T Diagnosis: Alcohol induced acute pancreatitis without necrosis or infection Presentation: 03/25 14:58 Chief complaint: Patient states: hx of pancreatitis, c/o upper abd pain since this iw morning , +nausea , no vomiting. Coronavirus screen: At this time, the client does not indicate any symptoms associated with coronavirus-19. Ebola Screen: Patient negative for fever greater than or equal to 101.5 degrees Fahrenheit, and additional compatible Ebola Virus Disease symptoms Patient denies exposure to infectious person. Patient denies travel to an Ebola-affected area in the 21 days before illness onset. No symptoms or risks identified at this time. Initial Sepsis Screen: Does the patient meet any 2 criteria? No. Patient's initial sepsis screen is negative. Does the patient have a suspected source of infection? No. Patient's initial sepsis screen is negative. Risk Assessment: Do you want to hurt yourself or someone else? Patient reports no desire to harm self or others. Onset of symptoms was March 25, 2022. 14:58 Method Of Arrival: Ambulatory iw 14:58 Acuity: ARNULFO 3 iw Triage Assessment: 15:06 General: Appears uncomfortable, Behavior is calm, cooperative, appropriate for age. mb8 Historical: - Allergies: 15:00 No Known Allergies; iw - Home Meds: 15:00 lisinopril 10 mg Oral tab 1 tab twice a day [Active]; Labetalol Oral [Active]; iw - PMHx: 15:00 Anxiety; Pancreatitis; Hypertension; herniated discs; iw - PSHx: 15:00 back surgery; Gastric Bypass; iw - Immunization history:: Client reports having NOT received the Covid vaccine. - Social history:: Smoking status: Reported history of juuling and/or vaping. Screenin:06 Abuse screen: Denies threats or abuse. Denies injuries from another. Nutritional mb8 screening: No deficits noted. Tuberculosis screening: No symptoms or risk factors identified. Fall Risk None identified. Assessment: 15:05 Pain: Complains of pain in upper abdomen Pain does not radiate. Pain currently is 10 mb8 out of 10 on a pain scale. Quality of pain is described as pressure. GI: Abdomen is round distended, Last BM was March 25, 2022. Bowel sounds present X 4 quads. Abdomen is tender to palpation in epigastric area, right upper quadrant and left upper quadrant Reports nausea. 16:21 Reassessment: No changes from previously documented assessment. Patient and/or family mb8 updated on plan of care and expected duration. Pain level reassessed. Patient is alert, oriented x 3, equal unlabored respirations, skin warm/dry/pink. 21:08 Reassessment: attempted report. nurse with pt at this time. ja4 21:16 Reassessment: gave report to anna. villafuerte Vital Signs: 14:58 BP 164 / 100; Pulse 68; Resp 16; Temp 98.1; Pulse Ox 98% on R/A; Weight 131.09 kg; iw Height 6 ft. 0 in. (182.88 cm); Pain 10/10; 16:21 BP 159 / 101; Pulse 82; Resp 22; Pulse Ox 99% ; Pain 10/10; mb8 16:41 BP 150 / 98; Pulse 80; Resp 20; Pulse Ox 99% ; Pain 8/10; mb8 17:35 BP 158 / 93; Pulse 79; Resp 20; Pulse Ox 97% ; Pain 10/10; mb8 18:00 Pain 7/10; mb8 18:22 BP 155 / 101; Pulse 90; Resp 18; Pulse Ox 99% ; Pain 9/10; mb8 14:58 Body Mass Index 39.20 (131.09 kg, 182.88 cm) ED Course: 14:44 Patient arrived in ED. am2 14:44 Sumeet Lazar MD is Private Physician. am2 14:52 Edwina Rodriguez [facility]C [facility] snw 14:52 Roberto River MD is Attending Physician. snw 14:58 Song Bennett, ANAHY is Primary Nurse. mb8 15:00 Triage completed. iw 15:01 Arm band placed on. iw 15:06 Patient has correct armband on for positive identification. mb8 15:06 No provider procedures requiring assistance completed. Inserted saline lock: 20 gauge mb8 in right antecubital area, using aseptic technique. Blood collected. 16:50 US Abdomen Limited In Process Unspecified. EDMS 17:31 CT Abd/Pelvis - IV Contrast Only In Process Unspecified. EDMS 17:54 Sameer Henry is Hospitalizing Provider. snw 18:38 Cleveland Persaud MD is Hospitalizing Provider. snw 19:30 Primary Nurse role handed off by Song Bennett, RN mw2 19:30 Lenard Diaz, ANAHY is Primary Nurse. ja4 19:32 COVID swab sent to lab. wm 19:34 SARS RAPID Sent. wm Administered Medications: 15:25 Drug: NS 0.9% 1000 ml Route: IV; Rate: 1 bolus; Site: right antecubital; mb8 18:00 Follow up: Response: No adverse reaction; IV Status: Completed infusion mb8 15:25 Drug: Pepcid (famotidine) 20 mg Route: IVP; Site: right antecubital; mb8 15:25 Drug: Zofran (Ondansetron) 4 mg Route: IVP; Site: right antecubital; mb8 15:25 Drug: Phenergan (promethazine) 25 mg Route: IM; Site: right deltoid; mb8 17:26 Follow up: Response: No adverse reaction; Nausea is decreased mb8 16:15 Drug: Lisinopril 10 mg Route: PO; mb8 16:40 Follow up: Response: No adverse reaction mb8 16:15 Drug: Ketorolac 30 mg Route: IVP; Site: right antecubital; mb8 16:40 Follow up: Response: No adverse reaction; Pain is decreased mb8 16:40 Drug: GI Cocktail without - (Maalox Suspension 30 ml, Lidocaine Liquid 2 % 15 mb8 ml) Route: PO; 17:26 Follow up: Response: No adverse reaction; Pain is unchanged, physician notified mb8 16:40 Drug: Simethicone 240 mg Route: PO; mb8 17:26 Follow up: Response: No adverse reaction; Pain is unchanged, physician notified mb8 17:40 Drug: Demerol (meperidine) 25 mg Route: IVP; Site: right antecubital; mb8 18:22 Follow up: Response: No adverse reaction; Pain is decreased mb8 18:40 Drug: Demerol (meperidine) 25 mg Route: IVP; Site: right antecubital; mb8 19:42 Drug: NS 0.9% 1000 ml Route: IV; Rate: 1000 ml; Site: right antecubital; ja4 19:43 Drug: Dilaudid (HYDROmorphone) 1 mg Route: IVP; Site: right antecubital; ja4 21:05 Drug: Dilaudid (HYDROmorphone) 1 mg {Note: phone order from [facility] hospitalist.} Route: ja4 IVP; Site: right antecubital; Medication: 15:06 VIS not applicable for this client. mb8 Outcome: 17:56 Decision to Hospitalize by Provider. snw 22:06 Patient left the ED. noy Signatures: Dispatcher [employer] EDMS Edwina Rodriguez, RECORDS TECHNICIAN-C RECORDS TECHNICIAN-Csnw Betty Taylor, Zofia Plasencia RN 2 Tessie Levy 2 Jenifer Reina Jeremy, RN RN ja4 Song Bennett RN RN mb8
--- NOTE | 2022-03-25 17:57 | EDPHYS ---
Physician Documentation [facility] Name: Marquise Jhaveri Age: 41 yrs Sex: Male : 1980 Arrival Date: 03/25/2022 Time: 14:44 Bed 18 Private MD: Sumeet Lazar T ED Physician Roberto River HPI: 03/25 15:13 This 41 yrs old Male presents to ER via Ambulatory with complaints of snw Abdominal Pain - flare up. 15:13 The patient presents with abdominal pain in the epigastric area, in the upper abdomen. snw Onset: The symptoms/episode began/occurred suddenly, this morning. The symptoms do not radiate. Associated signs and symptoms: Pertinent positives: nausea and vomiting. The symptoms are described as "another pancreatitis attack". Modifying factors: The symptoms are alleviated by nothing. Severity of pain: At its worst the pain was moderate severe. The patient has experienced similar episodes in the past, multiple times, Alcoholic pancreatitis. The patient has been recently seen by a physician: The patient has been recently seen at the [facility] Emergency Department, for similar complaints admitted for ETOH abuse and pancreatitis, 10/24/21. 17:51 pt states he had a bloody jayashree at [facility] yesterday, vomited after brun and a 6 pk of snw [place] last pm. . Historical: - Allergies: 15:00 No Known Allergies; iw - Home Meds: 15:00 lisinopril 10 mg Oral tab 1 tab twice a day [Active]; Labetalol Oral [Active]; iw - PMHx: 15:00 Anxiety; Pancreatitis; Hypertension; herniated discs; iw - PSHx: 15:00 back surgery; Gastric Bypass; iw - Immunization history:: Client reports having NOT received the Covid vaccine. - Social history:: Smoking status: Reported history of juuling and/or vaping. ROS: 15:13 Constitutional: Negative for fever, chills, and weight loss, Eyes: Negative for injury, snw pain, redness, and discharge, ENT: Negative for injury, pain, and discharge, Neck: Negative for injury, pain, and swelling, Cardiovascular: Negative for chest pain, palpitations, and edema, Respiratory: Negative for shortness of breath, cough, wheezing, and pleuritic chest pain, Back: Negative for injury and pain, : Negative for injury, bleeding, discharge, and swelling, MS/Extremity: Negative for injury and deformity, Skin: Negative for injury, rash, and discoloration, Neuro: Negative for headache, weakness, numbness, tingling, and seizure, Psych: Negative for depression, anxiety, suicide ideation, homicidal ideation, and hallucinations. 15:13 Abdomen/GI: Positive for abdominal pain, nausea, vomiting. Exam: 15:12 Constitutional: This is a well developed, well nourished patient who is awake, alert, snw and in no acute distress. Head/Face: Normocephalic, atraumatic. Eyes: Pupils equal round and reactive to light, extra-ocular motions intact. Lids and lashes normal. Conjunctiva and sclera are non-icteric and not injected. Cornea within normal limits. Periorbital areas with no swelling, redness, or edema. ENT: Nares patent. No nasal discharge, no septal abnormalities noted. Tympanic membranes are normal and external auditory canals are clear. Oropharynx with no redness, swelling, or masses, exudates, or evidence of obstruction, uvula midline. Mucous membranes moist. Neck: Trachea midline, no thyromegaly or masses palpated, and no cervical lymphadenopathy. Supple, full range of motion without nuchal rigidity, or vertebral point tenderness. No Meningismus. Chest/axilla: Normal chest wall appearance and motion. Nontender with no deformity. No lesions are appreciated. Cardiovascular: Regular rate and rhythm with a normal S1 and S2. No gallops, murmurs, or rubs. Normal PMI, no JVD. No pulse deficits. Respiratory: Lungs have equal breath sounds bilaterally, clear to auscultation and percussion. No rales, rhonchi or wheezes noted. No increased work of breathing, no retractions or nasal flaring. Back: No spinal tenderness. No costovertebral tenderness. Full range of motion. Skin: Warm, dry with normal turgor. Normal color with no rashes, no lesions, and no evidence of cellulitis. MS/ Extremity: Pulses equal, no cyanosis. Neurovascular intact. Full, normal range of motion. Neuro: Awake and alert, GCS 15, oriented to person, place, time, and situation. Cranial nerves II-XII grossly intact. Motor strength 5/5 in all extremities. Sensory grossly intact. Cerebellar exam normal. Normal gait. Psych: Awake, alert, with orientation to person, place and time. Behavior, mood, and affect are within normal limits. 15:12 Abdomen/GI: Inspection: obese Bowel sounds: diminished, in all quadrants, Palpation: moderate abdominal tenderness, in the right upper quadrant and left upper quadrant. Vital Signs: 14:58 BP 164 / 100; Pulse 68; Resp 16; Temp 98.1; Pulse Ox 98% on R/A; Weight 131.09 kg; iw Height 6 ft. 0 in. (182.88 cm); Pain 10/10; 16:21 BP 159 / 101; Pulse 82; Resp 22; Pulse Ox 99% ; Pain 10/10; mb8 16:41 BP 150 / 98; Pulse 80; Resp 20; Pulse Ox 99% ; Pain 8/10; mb8 17:35 BP 158 / 93; Pulse 79; Resp 20; Pulse Ox 97% ; Pain 10/10; mb8 18:00 Pain 7/10; mb8 18:22 BP 155 / 101; Pulse 90; Resp 18; Pulse Ox 99% ; Pain 9/10; mb8 14:58 Body Mass Index 39.20 (131.09 kg, 182.88 cm) iw MDM: 15:04 Patient medically screened. snw 17:56 Data reviewed: vital signs, nurses notes. Data interpreted: Pulse oximetry: on room air snw is 97 %. Interpretation: normal. Counseling: I had a detailed discussion with the patient and/or guardian regarding: the historical points, exam findings, and any diagnostic results supporting the discharge/admit diagnosis, the presence of at least one elevated blood pressure reading (>120/80) during this emergency department visit, lab results, radiology results, the need for further work-up and treatment in the hospital. Response to treatment: the patient's symptoms have mildly improved after treatment. Physician consultation: Tomy RUBY was called at 18:15, regarding admission, would like admission per Dr. Sameer Henry. 03/25 15:01 Order name: Urine Dipstick-Ancillary; Complete Time: 15:04 EDMS 03/25 15:04 Order name: CBC with Diff; Complete Time: 15:29 snw 03/25 15:04 Order name: CMP; Complete Time: 15:34 snw 03/25 15:04 Order name: Lipase; Complete Time: 15:34 snw 03/25 15:06 Order name: Magnesium; Complete Time: 15:39 snw 03/25 15:06 Order name: Phosphorus; Complete Time: 15:39 snw 03/25 15:06 Order name: AMMONIA; Complete Time: 15:39 snw 03/25 15:58 Order name: US Abdomen Limited; Complete Time: 17:44 snw 03/25 16:55 Order name: CT Abd/Pelvis - IV Contrast Only; Complete Time: 17:44 snw 03/25 19:10 Order name: SARS RAPID; Complete Time: 20:04 wm 03/25 15:04 Order name: IV Saline Lock; Complete Time: 15:15 snw 03/25 15:04 Order name: Labs collected and sent; Complete Time: 15:15 snw Administered Medications: 15:25 Drug: NS 0.9% 1000 ml Route: IV; Rate: 1 bolus; Site: right antecubital; mb8 18:00 Follow up: Response: No adverse reaction; IV Status: Completed infusion mb8 15:25 Drug: Pepcid (famotidine) 20 mg Route: IVP; Site: right antecubital; mb8 15:25 Drug: Zofran (Ondansetron) 4 mg Route: IVP; Site: right antecubital; mb8 15:25 Drug: Phenergan (promethazine) 25 mg Route: IM; Site: right deltoid; mb8 17:26 Follow up: Response: No adverse reaction; Nausea is decreased mb8 16:15 Drug: Lisinopril 10 mg Route: PO; mb8 16:40 Follow up: Response: No adverse reaction mb8 16:15 Drug: Ketorolac 30 mg Route: IVP; Site: right antecubital; mb8 16:40 Follow up: Response: No adverse reaction; Pain is decreased mb8 16:40 Drug: GI Cocktail without - (Maalox Suspension 30 ml, Lidocaine Liquid 2 % 15 mb8 ml) Route: PO; 17:26 Follow up: Response: No adverse reaction; Pain is unchanged, physician notified mb8 16:40 Drug: Simethicone 240 mg Route: PO; mb8 17:26 Follow up: Response: No adverse reaction; Pain is unchanged, physician notified mb8 17:40 Drug: Demerol (meperidine) 25 mg Route: IVP; Site: right antecubital; mb8 18:22 Follow up: Response: No adverse reaction; Pain is decreased mb8 18:40 Drug: Demerol (meperidine) 25 mg Route: IVP; Site: right antecubital; mb8 19:42 Drug: NS 0.9% 1000 ml Route: IV; Rate: 1000 ml; Site: right antecubital; ja4 19:43 Drug: Dilaudid (HYDROmorphone) 1 mg Route: IVP; Site: right antecubital; ja4 21:05 Drug: Dilaudid (HYDROmorphone) 1 mg {Note: phone order from [facility].} Route: ja4 IVP; Site: right antecubital; Disposition: 03/26 07:07 Co-signature as Attending Physician, Roberto River MD I agree with the assessment and kdr plan of care. Disposition Summary: 03/25/22 17:56 Hospitalization Ordered Hospitalization Status: Observation snw Location: Telemetry/MedSurg (observation) snw Condition: Stable snw Problem: an acute exacerbation snw Symptoms: are unchanged snw Bed/Room Type: Standard snw Provider: Cleveland Persaud(03/25/22 18:38) snw Room Assignment: [facility](03/25/22 20:40) cg Diagnosis - Alcohol induced acute pancreatitis without necrosis or infection snw Forms: - Medication Reconciliation Form snw - SBAR form snw Signatures: Dispatcher [employer] EDMS Roberto River MD MD kdr Waters, Shelly, INSURANCE APPLICATION INVESTIGATOR-C INSURANCE APPLICATION INVESTIGATOR-Csnw Betty Taylor, RN RN Tomy Narvaez INSURANCE APPLICATION INVESTIGATOR-C INSURANCE APPLICATION INVESTIGATOR-ClaElba Armas RN RN cg Lenard Diaz RN RN ja4 Song Bennett RN RN mb8 Corrections: (The following items were deleted from the chart) 03/25 15:17 15:13 The patient has been recently seen by a physician: The patient has been recently snw seen at the [facility] Emergency Department, for similar complaints admitted for ETOH abuse and pancreatitis, snw 18:38 17:56 Sameer Henry snw snw 20:40 17:56 snw cg
[2022-03-25] MEDS ORDERED: HYDROMORPHONE HCL 1 MG/ML INJ ONE ×2 (19:44→21:13)
[2022-03-25] MEDS ORDERED: Ringers Lactate 1,000 ML IV ONE (19:45)
[2022-03-25 20:00] LABS: SARS-CoV-2 Antigen Rapid Res Negative (Negative)
--- NOTE | 2022-03-25 20:12 | P.HP ---
Certification for Inpatient Patient admitted to: Inpatient With expected LOS: >2 Midnights Patient will require the following post-hospital care: None Practitioner: I am a practitioner with admitting privileges, knowledge of patient current condition, hospital course, and medical plan of care. Services: Services provided to patient in accordance with Admission requirements found in Title 42 Section 412.3 of the Code of Federal Regulations Patient History Date of Service: 03/25/22 Reason for admission: Acute pancreatitis History of Present Illness: 41-year-old male with history of hypertension, alcohol use disorder, previous episode of pancreatitis presents emerged department for epigastric pain. He reports he has recently consumed alcohol yesterday including a bloody Yoli and a sixpack of "river water". Patient was evaluated in the emergency department his labs were significant for elevated moderate elevations and aminotransferase levels AST 174 ALT 153 alk phos 191 reports a chronic 0.9 CT of the abdomen pelvis with IV contrast shows mild to moderate pancreatitis with 3.5 cm pancreatic pseudocyst which has decreased in size from previous imaging abdominal ultrasound was performed which showed no gallbladder wall thickening, no gallstones small amount of gallbladder sludge normal biliary tree. ED right versus admit for acute alcoholic pancreatitis Allergies No Known Allergies Allergy (Unverified 05/31/12 20:12) Home Medications: Metoprolol Tartrate [Lopressor*] 50 mg PO BID #60 tab 11/17/20 lisinopriL [Prinivil*] 10 mg PO BID #60 tab 11/17/20 Hydrocodone 5/APAP 325 [Barker 5/325] 1 tab PO Q6H PRN #15 tab 10/25/21 - Past Medical/Surgical History Diabetic: No -: Hypertension -: Chronic pain -: Alcohol use -: History of gastric bypass -: Gastric bypass -: lumbar surgery Psychosocial/ Personal History: Patient is - Family History Mother -: Hypertension Father -: Heart disease, Diabetes - Social History Smoking Status: Current every day smoker Counseled patient to stop smoking for: less than 10 minutes Alcohol use: Yes CD- Drugs: No Caffeine use: Yes Place of Residence: Home Review of Systems 10-point ROS is otherwise unremarkable Gastrointestinal: Nausea, Abdominal Pain Physical Examination - Physical Exam General: Alert, In no apparent distress, Oriented x3 HEENT: Atraumatic, PERRLA, Mucous membr. moist/pink, EOMI, Sclerae nonicteric Neck: Supple, 2+ carotid pulse no bruit, No LAD, Without JVD or thyroid abnormality Respiratory: Clear to auscultation bilaterally, Normal air movement Cardiovascular: Regular rate/rhythm, Normal S1 S2 Capillary refill: <2 Seconds Gastrointestinal: Normal bowel sounds, No rebound, No guarding, Tenderness (Moderate epigastric tenderness) Musculoskeletal: No tenderness Integumentary: No rashes Neurological: Normal speech, Normal strength at 5/5 x4 extr, Normal tone, Normal affect - Studies Laboratory Data (last 24 hrs) 03/25/22 15:14: Phosphorus 4.2, Magnesium 1.9 03/25/22 15:09: Sodium 135 L, Potassium 4.4, BUN 7, Creatinine 0.76, Glucose 136 H, Total Bilirubin 0.6, AST 174 H, ALT 153 H, Alkaline Phosphatase 191 H, Lipase 932 H 03/25/22 15:09: WBC 9.90, Hgb 13.1 L, Hct 40.5, Plt Count 250 Assessment and Plan - Plan Assessment: Acute alcoholic pancreatitis Hypertension Elevated aminotransferase levels Alcohol use disorder Plan: Acute alcoholic pancreatitis: NPO, aggressive IVF, PRN pain meds and anti- emetics. Trend Lipase. Discussed importance of alcohol cessation with patient at length. Hypertension: PRN hydralazine, pain control. Elevated aminotransferase levels: Trend, likely related to acute/chronic alcohol use. Alcohol use disorder: Counseled on need for alcohol cessation. Pt verbalized he is planning on quitting. Monitor for signs of withdrawal, last drink about 24 hours ago. DVT PPX: Lovenox Code status: Full Discharge Plan: Home Plan to discharge in: 48 Hours - Advance Directives Does patient have a Living Will: No Does patient have a Durable POA for Healthcare: No - Code Status/Comfort Care Code Status Assessed: Yes (Full code) Critical Care: No Time Spent Managing Pts Care (In Minutes): 55
[2022-03-25] MEDS: Ringers Lactate 1,000 ML IV SCH (20:32)
[2022-03-25 20:54] VITALS: BMI 38.7
[2022-03-25] MEDS: ONDANSETRON 4 MG/2 ML VIAL IV PRN (22:20)
[2022-03-25] MEDS: HYDROMORPHONE HCL 0.5 MG/0.5 ML INJ IV PRN (22:20)
[2022-03-25] MEDS: HYDROMORPHONE HCL 1 MG/ML INJ IV PRN (23:43)
[2022-03-26] MEDS: HYDROMORPHONE HCL 0.5 MG/0.5 ML INJ IV PRN ×6 (01:50→22:03)
[2022-03-26] MEDS: Ringers Lactate 1,000 ML IV SCH ×4 (03:53→18:40)
[2022-03-26] MEDS: HYDROMORPHONE HCL 1 MG/ML INJ IV PRN ×5 (03:53→19:52)
[2022-03-26 05:53] LABS: Absolute Lymphocytes (CBC) 0.8 K/uL (0.7-4.9); Hematocrit 35.6 % (39.6-49.0); MCV 81.8 fL (80-100); MPV 7.3 fL (7.6-11.3); RBC Red Blood Cell Count 4.35 M/uL (4.33-5.43)
[2022-03-26] MEDS: ONDANSETRON 4 MG/2 ML VIAL IV PRN (05:53)
[2022-03-26 06:06] LABS: Albumin 3.4 g/dL (3.4-5.0); Bilirubin Total 0.9 mg/dL (0.2-1.0); Potassium 4.3 mmol/L (3.5-5.1); Protein, Total 6.9 g/dL (6.4-8.2)
[2022-03-26] MEDS: FOLIC ACID 1 MG in NA CHLORIDE 0.9% 50 ML IV SCH (08:53)
[2022-03-26] MEDS: THIAMINE 200 MG/2 ML INJ IVP SCH (08:53)
[2022-03-26] MEDS: ENOXAPARIN 40 MG/0.4 ML SQ SCH (08:53)
[2022-03-26] MEDS ORDERED: FOLIC ACID 5 MG/ML VIAL IVP SCH (09:00)
--- NOTE | 2022-03-26 09:06 | P.PN ---
Subjective Date of Service: 03/26/22 Chief Complaint: Acute pancreatitis Subjective: No new changes, Improving Physical Examination - Vital Signs Temperature: 98 F Blood Pressure: 163/99 Pulse: 84 Respirations: 18 Pulse Ox (%): 99 - Physical Exam General: Alert, In no apparent distress, Oriented x3 HEENT: Atraumatic, Normocephalic Neck: Supple Respiratory: Normal air movement Cardiovascular: Regular rate/rhythm, Normal S1 S2 Gastrointestinal: Soft and benign Musculoskeletal: No swelling Integumentary: No breakdown Neurological: Normal speech, Normal strength at 5/5 x4 extr - Studies Laboratory Data (last 24 hrs) 03/25/22 15:14: Phosphorus 4.2, Magnesium 1.9 03/25/22 15:09: Sodium 135 L, Potassium 4.4, BUN 7, Creatinine 0.76, Glucose 136 H, Total Bilirubin 0.6, AST 174 H, ALT 153 H, Alkaline Phosphatase 191 H, Lipase 932 H 03/25/22 15:09: WBC 9.90, Hgb 13.1 L, Hct 40.5, Plt Count 250 Assessment And Plan - Plan Assessment and Plan - Plan Assessment: Acute alcoholic pancreatitis Hypertension Elevated aminotransferase levels Alcohol use disorder Plan: Acute alcoholic pancreatitis: Significant pain however patient is willing to try oral intake. Pain control is still somewhat inadequate with present dose of Dilaudid. In view of patient's clinical status and concerns for respiratory depression, will continue pain control at present regimen and follow closely. We will start a trial of clear liquid diet and follow symptomatology closely. Hypertension: We will follow patient blood pressure per unit protocol and continue outpatient medication for blood pressure control. Would adjust IV fluid rate to address blood pressure control. Elevated aminotransferase levels: We will monitor closely and continue trending liver enzymes. Alcohol use disorder: Counseled on need for alcohol cessation. Patient is very much aware of his alcohol abuse related issue. Follow closely. DVT PPX: Lovenox Code status: Full Discharge Plan: Home Plan to discharge in: 24 Hours
[2022-03-26] MEDS ORDERED: LABETALOL 20 MG/4ML SYRINGE IV PRN (16:03)
[2022-03-26] MEDS ORDERED: HYDRALAZINE HCL 20 MG/ML VIAL IV PRN (19:36)
[2022-03-26] MEDS: lisinopriL 10 MG TAB PO SCH (19:51)
[2022-03-26] MEDS: LORazepam 2 MG/ML VIAL IV PRN (21:08)
[2022-03-27] MEDS: HYDROMORPHONE HCL 1 MG/ML INJ IV PRN ×3 (00:18→09:12)
[2022-03-27] MEDS: LORazepam 2 MG/ML VIAL IV PRN ×3 (01:57→10:47)
[2022-03-27] MEDS: Ringers Lactate 1,000 ML IV SCH (04:15)
[2022-03-27 06:15] LABS: Absolute Lymphocytes (CBC) 0.8 K/uL (0.7-4.9); Hematocrit 34.9 % (39.6-49.0); MCV 81.2 fL (80-100); MPV 7.2 fL (7.6-11.3); RBC Red Blood Cell Count 4.31 M/uL (4.33-5.43)
[2022-03-27 06:31] LABS: Albumin 3.3 g/dL (3.4-5.0); Bilirubin Total 0.8 mg/dL (0.2-1.0); Magnesium 2.5 mg/dL (1.8-2.4); Protein, Total 7.2 g/dL (6.4-8.2)
[2022-03-27] MEDS: HYDROMORPHONE HCL 0.5 MG/0.5 ML INJ IV PRN (06:50)
[2022-03-27] MEDS ORDERED: NEBIVOLOL HCL 5 MG TAB PO SCH (09:00)
[2022-03-27] MEDS: THIAMINE 200 MG/2 ML INJ IVP SCH (09:11)
[2022-03-27] MEDS: ENOXAPARIN 40 MG/0.4 ML SQ SCH (09:11)
[2022-03-27] MEDS: lisinopriL 10 MG TAB PO SCH (09:12)
[2022-03-27] MEDS: FOLIC ACID 1 MG in NA CHLORIDE 0.9% 50 ML IV SCH (09:20)
--- NOTE | 2022-03-27 10:45 | P.DS ---
Admission Date: 03/25/22 Discharge Date: 03/27/22 Disposition: ROUTINE DISCHARGE Discharge Condition: GOOD Reason for Admission: Acute pancreatitis Brief History of Present Illness: 41-year-old male with history of hypertension, alcohol use disorder, previous episode of pancreatitis presents emerged department for epigastric pain. He reports he has recently consumed alcohol yesterday including a bloody Yoli and a sixpack of "river water". Patient was evaluated in the emergency department his labs were significant for elevated [id number] moderate elevations and aminotransferase levels AST 174 ALT 153 alk phos 191 reports a chronic 0.9 CT of the abdomen pelvis with IV contrast shows mild to moderate pancreatitis with 3.5 cm pancreatic pseudocyst which has decreased in size from previous imaging abdominal ultrasound was performed which showed no gallbladder wall thickening, no gallstones small amount of gallbladder sludge normal biliary tree. He was admitted for acute alcoholic pancreatitis management. Hospital Course: patient was admitted for inpatient care and he was started on supportive care with IV fluid and pain control medication and he was n.p.o. He was observed over the last 48 hours and his symptoms improved significantly especially abdominal pain. He also did verbalize some concerns about alcohol withdrawal and he was given benzos for withdrawal protocol. Thiamine was started also for management of alcohol related complications. He improved significantly and was started on liquid diet yesterday which he tolerated without significant pain. He is deemed stable for discharge today to continue with outpatient pain control medication for management of chronic low back pain which will also bridge for some abdominal pain. He also did have a prescription of thiamine given for alcohol abuse related issue. 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 Vital Signs/Physical Exam: Temp Pulse Resp BP Pulse Ox 98.6 F 98 H 16 147/96 H 97 03/27/22 08:00 03/27/22 09:12 03/27/22 09:12 03/27/22 09:12 03/27/22 09:12 General: Alert, Oriented x3 HEENT: Atraumatic, Normocephalic Neck: Supple Respiratory: Normal air movement Cardiovascular: Regular rate/rhythm, Normal S1 S2 Gastrointestinal: Soft and benign Musculoskeletal: No swelling Neurological: Normal speech, Normal strength at 5/5 x4 extr Laboratory Data at Discharge: WBC 4.50 K/uL (4.3-10.9) D 03/27/22 05:20 Hgb 11.6 g/dL (13.6-17.9) L 03/27/22 05:20 Hct 34.9 % (39.6-49.0) L 03/27/22 05:20 Plt Count 109 K/uL (152-406) L 03/27/22 05:20 Sodium 137 mmol/L (136-145) 03/27/22 05:20 Potassium 4.0 mmol/L (3.5-5.1) 03/27/22 05:20 BUN 5 mg/dL (7-18) L 03/27/22 05:20 Creatinine 0.74 mg/dL (0.55-1.3) 03/27/22 05:20 Glucose 124 mg/dL (74-106) H 03/27/22 05:20 Phosphorus 4.2 mg/dL (2.5-4.9) 03/25/22 15:14 Magnesium 2.5 mg/dL (1.8-2.4) H D 03/27/22 05:20 Total Bilirubin 0.8 mg/dL (0.2-1.0) 03/27/22 05:20 AST 43 U/L (15-37) H 03/27/22 05:20 ALT 78 U/L (12-78) 03/27/22 05:20 Alkaline Phosphatase 154 U/L (45-117) H 03/27/22 05:20 Lipase 263 U/L (73-393) 03/27/22 05:20 Home Medications: lisinopriL [Prinivil*] 10 mg PO BID #60 tab 11/17/20 Nebivolol HCl [Bystolic*] 5 mg PO DAILY 03/25/22 Thiamine HCl [Vitamin B-1] 100 mg PO DAILY 30 Days #30 03/27/22 New Medications: Thiamine HCl [Vitamin B-1] 100 mg PO DAILY 30 Days #30 Diet: Regular Activity: Ad don Followup: Sumeet Lazar MD [Primary Care Provider] -
[2022-03-27 12:08] VITALS: BP 154/96; TEMP 97.6
[2022-03-27 12:18] VITALS: O2SAT 97
== END 2022-03-27 12:30 | disposition home or self-care (01) | DRG 440 ==
LOC: ER 14:43 → ERHOLD 19:33 → 2ND 21:52
PROVIDERS: ADMIT Internal Medicine Nephrology; ATTEND Internal Medicine Nephrology
DX: K85.20 Alcohol induced acute pancreatitis without necrosis or infection (principal); I10 Essential (primary) hypertension; Z72.89 Other problems related to lifestyle; R74.01 Elevation of levels of liver transaminase levels; Z98.84 Bariatric surgery status; F17.210 Nicotine dependence, cigarettes, uncomplicated; Z20.822 Contact with and (suspected) exposure to COVID-19
CPT/HCPCS: 36415; 74177; 76705; 80053; 81003; 82140; 83690; 83735; 84100; 85025; 87811; 96361; 96372; 96374; 96375; 99284; J1170; J1650; J2175; J2405; J2550; J3411; J7030; J7120; Q9967

== ENCOUNTER 2022-07-01 07:30 | Inpatient (IN) | payer BC ==
--- OUTSIDE RECORDS SUMMARY | 2022-07-01 07:35 | XMS REPORT | Continuity of Care Document ---
:1980 Author Organization [facility] t Address [facility] [address] [address] [place] [address] Care Team Providers Name Role Phone PCP, PATIENT DOES NOT HAVE A Primary Care Physician Karina Hoover MD, Sendil K.H. Attending Clinician RAJEEV HOOVER.H. Attending Clinician Unavailable DONELL WOODRUFF Attending Clinician Unavailable Vincent Patel Attending Clinician DONELL WOODRUFF Admitting Clinician Unavailable Vincent Patel Admitting Clinician Payers Payer Name Policy Type Policy Number Effective Date Expiration Date [facility] [id number] 2019 PPO 00:00:00 Problems Condition Condition Condition Status Onset Resolution Last Treating Co mments Source Name Details Category Date Date Treatment Clinician Date 00227, [id number], Diagnosis Active 2016-02-07 Me moria MORBID MORBID 6-17 21:59:00 l OBESITY OBESITY 00:00: [place] Active 00 01/06/2016 [facility] [id number], [id number], Diagnosis Active 2015-12-05 Me moria REFLUX REFLUX 5-11 11:03:00 l Active 00:00: [place] 11/30/2015 00 [facility] Morbid Morbid Problem Active 2016-02-05 Kwadwo jase obesity obesity 00:26:43 l (disorder) (disorder) He rmann Active Problem 02/05/2016 [facility] ILLNESS, ILLNESS, Diagnosis Active 2016-02-07 Memoria UNSPECIFIE UNSPECIFIE 21:59:00 l D D Active [place] [facility] Acid Acid Problem Resolve 2016-02-05 Kwadwo jase reflux reflux d 00:26:43 l (finding) (finding) Herm johnny Resolved Problem 02/05/2016 [facility] Hypertensi Hypertens Problem Active 2016-02-05 Memoria ve kallie 00:26:43 l disorder, disorder, Herm johnny systemic systemic arterial arterial (disorder) (disorder) Active Problem 02/05/2016 [facility] C/O - low C/O - low Problem Active 2016-02-05 Memoria back pain back pain 00:26:43 l (context-d (context-d He rmann ependent ependent category) category) Active Problem 02/05/2016 [facility] Degenerati Degenerat Problem Active 2016-02-05 Memoria on of ion of 00:26:43 l interverte interverte He rmann bral disc bral disc (disorder) (disorder) Active Problem 02/05/2016 [facility] Allergies, Adverse Reactions, Alerts Allergy Allergy Status Severity Reaction(s) Onset Inactive Treating Comm ents Source Name Type Date Date Clinician NO KNOWN Drug Active [facility] ALLERGIE Susan ity of [facility] Social History Social Habit Start Date Stop Date Quantity Comments Source Social History 2016-01-19 2016[facility]01[facility] 16:22:14 Medications Ordered Filled Start Stop Current Ordering Indication Dosage Frequency Signature Comments Components Source Medication Medication Date Date Medication? Clinician (SIG) Name Name Lactated No 1,000 mL, Kwadwo jase Ringers 02-01 Rate: 80 l 1,000 mL 14:00: ml/hr, [place] 00 Infuse over: 12.5 hr, Route: IV, Dosing Weight 148.182 kg, Total Volume: 1,000, Start date: 02/02/16 9:00:00 CDT, Duration: 30 day, Stop date: 03/03/16 8:59:00 CDT Lactated 2015-0 No 1,000 mL, Kwadwo jase Ringers 02-01 Rate: 80 l 1,000 mL 14:00: ml/hr, [place] 00 Infuse over: 12.5 hr, Route: IV, Dosing Weight 148.182 kg, Total Volume: 1,000, Start date: 02/02/16 9:00:00 CDT, Duration: 30 day, Stop date: 03/03/16 8:59:00 CDT Enoxaparin 2016-0 No Notes: Memor ia 7-14 (Same as: l 04:30: Lovenox) [place] 00 Enoxaparin 0 No Notes: Memor ia 7-14 (Same as: l 04:30: Lovenox) Ketorolac 2015-0 No 4 days Memor ia 7-13 l 20:00: MEDICATION [place] 00 WASTE Product Size: 30 mg Product Wasted: ___ mg Ketorolac 2015-0 No 4 days Memor ia 7-13 l 20:00: MEDICATION [place] WASTE Product Size: 30 mg Product Wasted: ___ mg Sodium No 25 mL, Memoria Chloride - Route: IV, l 0.9% IV 19:05: Start [place] 00 date: 02/01/16 14:05:00 CDT, Duration: 30 day, Stop date: 03/02/16 14:04:00 CDT, PRN Line Flush BD Normal No Notes: Memori a Saline 7-13 (Same as: l Flush 19:05: BD [place] Posiflush) Sodium No 25 mL, Memoria Chloride 01-31 Route: IV, l 0.9% IV 19:05: Start date: 02/01/16 14:05:00 CDT, Duration: 30 day, Stop date: 03/02/16 14:04:00 CDT, PRN Line Flush BD Normal 0 No Notes: Memori a Saline 7-13 (Same as: l Flush 19:05: BD [place] Posiflush) BD Normal No Notes: Memori a Saline 7-13 (Same as: l Flush 19:04: BD [place] 00 Posiflush) BD Normal 0 No Notes: Memori a Saline 7-13 (Same as: l Flush 19:04: BD [place] 00 Posiflush) Dilaudid No Notes: Memoria 7-13 (Same as: l 16:37: Dilaudid) [place] 00 Dilaudid No Notes: Memoria 7-13 (Same as: l 16:37: Dilaudid) [place] Lactated No 1,000 mL, Kwadwo jase Ringers 7-13 Rate: 80 l Injection 16:34: ml/hr, Andrae n IV 1000 mL 00 Infuse over: 12.5 hr, Route: IV, Dosing Weight 148.182 kg, Total Volume: 1,000, Priority: STAT, Start date: 02/01/16 11:34:00 CDT, Duration: 30 day, Stop date: 03/02/16 11:33:00 CDT Calcium 2015-0 No 1,000 mL, Memor ia Chloride 7-13 Rate: 125 l 0.0014 16:34: ml/hr, [place] MEQ/ML / 00 Infuse Potassium over: 8 Chloride hr, Route: 0.004 IV, Dosing MEQ/ML / Weight Sodium 148.182 Chloride kg, Total 0.103 Volume: MEQ/ML / 1,000, Sodium Start Lactate date: 0.028 02/01/16 MEQ/ML 11:34:00 Injectable CDT, Stop Solution date: 02/02/16 9:00:00 CDT Promethazin No 12.5 mg, Me moria e 7-13 50 mL, l 16:34: Route: [place] 00 IVPB, Drug form: SOLN, Q4H, Dosing Weight 148.182, kg, PRN Nausea & Vomiting, Start date: 02/01/16 11:34:00 CDT, Duration: 30 day, Stop date: 03/02/16 11:33:00 CDT Ondansetron 2015- No Notes: Kwadwo jase 7-13 (Same as: l 16:34: Zofran) [place] 00 MEDICATION WASTE Product Size: 4 mg Product Wasted: ___ mg Lactated 2015- No 1,000 mL, Kwadwo jase Ringers 7-13 Rate: 80 l Injection 16:34: ml/hr, Andrae n IV 1000 mL 00 Infuse over: 12.5 hr, Route: IV, Dosing Weight 148.182 kg, Total Volume: 1,000, Priority: STAT, Start date: 02/01/16 11:34:00 CDT, Duration: 30 day, Stop date: 03/02/16 11:33:00 CDT Calcium 2015-0 No 1,000 mL, Memor ia Chloride 7-13 Rate: 125 l 0.0014 16:34: ml/hr, [place] MEQ/ML / 00 Infuse Potassium over: 8 Chloride hr, Route: 0.004 IV, Dosing MEQ/ML / Weight Sodium 148.182 Chloride kg, Total 0.103 Volume: MEQ/ML / 1,000, Sodium Start Lactate date: 0.028 02/01/16 MEQ/ML 11:34:00 Injectable CDT, Stop Solution date: 02/02/16 9:00:00 CDT Promethazin No 12.5 mg, Me moria e 7-13 50 mL, l 16:34: Route: [place] 00 IVPB, Drug form: SOLN, Q4H, Dosing Weight 148.182, kg, PRN Nausea & Vomiting, Start date: 02/01/16 11:34:00 CDT, Duration: 30 day, Stop date: 03/02/16 11:33:00 CDT Ondansetron No Notes: Kwadwo jase 7-13 (Same as: l 16:34: Zofran) 00 MEDICATION WASTE Product Size: 4 mg Product Wasted: ___ mg Hydromorpho No Notes: Kwadwo jase ne 7-13 (Same as: l 16:33: Dilaudid) Naloxone No Notes: Memoria 7-13 Same as l 16:33: Narcan Meperidine No Notes: Memor ia 7-13 (Same As: l 16:33: Demerol) Flumazenil No Notes: Memor ia 7-13 (Same as: l 16:33: Romazicon) Diphenhydra No Notes: Kwadwo jase mine 7-13 (Same as: l 16:33: Benadryl) Ondansetron No Notes: Kwadwo jaes 7-13 (Same as: l 16:33: Zofran) 00 MEDICATION WASTE Product Size: 4 mg Product Wasted: ___ mg Labetalol No Notes: Memori a 7-13 (Same as: l 16:33: Normodyne, [place] 00 Trandate) Push over 2 minutes Give bolus over 2-3 minutes. Ketorolac 2016-0 No 4 days Memor ia 7-13 l 16:33: MEDICATION [place] 00 WASTE Product Size: 30 mg Product Wasted: ___ mg Morphine No Notes: Memoria 7-13 (Same l 16:33: as:MORPhin [place] 00 e Sulfate) Fentanyl No Notes: Memoria 7-13 (Same as: l 16:33: Sublimaze) [place] Preservati ve free. Hydromorpho No Notes: Kwadwo jase ne 7-13 (Same as: l 16:33: Dilaudid) [place] Naloxone No Notes: Memoria 7-13 Same as l 16:33: Narcan [place] 00 Meperidine No Notes: Memor ia 7-13 (Same As: l 16:33: Demerol) [place] 00 Flumazenil No Notes: Memor ia 7-13 (Same as: l 16:33: Romazicon) [place] Diphenhydra No Notes: Kwadwo jase mine 7-13 (Same as: l 16:33: Benadryl) [place] Ondansetron No Notes: Kwadwo jase 7-13 (Same as: l 16:33: Zofran) [place] 00 MEDICATION WASTE Product Size: 4 mg Product Wasted: ___ mg Labetalol No Notes: Memori a 7-13 (Same as: l 16:33: Normodyne, [place] 00 Trandate) Push over 2 minutes Give bolus over 2-3 minutes. Ketorolac 2016-0 No 4 days Memor ia 7-13 l 16:33: MEDICATION [place] 00 WASTE Product Size: 30 mg Product Wasted: ___ mg Morphine No Notes: Memoria 7-13 (Same l 16:33: as:MORPhin [place] 00 e Sulfate) Fentanyl No Notes: Memoria 7-13 (Same as: l 16:33: Sublimaze) [place] 00 Preservati ve free. Naloxone No Notes: Memoria 7-13 Same as l 12:44: Narcan [place] 00 Flumazenil No Notes: Memor ia 7-13 (Same as: l 12:44: Romazicon) [place] 00 Ondansetron No Notes: Kwadwo jase 7-13 (Same as: l 12:44: Zofran) [place] 00 MEDICATION WASTE Product Size: 4 mg Product Wasted: ___ mg Naloxone No Notes: Memoria 7-13 Same as l 12:44: Narcan [place] Flumazenil No Notes: Memor ia 7-13 (Same as: l 12:44: Romazicon) [place] Ondansetron No Notes: Kwadwo jase 7-13 (Same as: l 12:44: Zofran) [place] 00 MEDICATION WASTE Product Size: 4 mg Product Wasted: ___ mg Ancef No Notes: Memoria 7-13 Same as: l 05:00: Ancef [place] 00 Ancef No Notes: Memoria 7-13 Same as: l 05:00: Ancef [place] Ondansetron No Notes: Kwadwo jase 5-13 (Same as: l 13:11: Zofran) [place] 00 MEDICATION WASTE Product Size: 4 mg Product Wasted: ___ mg Promethazin No Notes: Do M emoria e 5-13 not give l 13:11: IV push. [place] 00 (Same as: Phenergan) Naloxone No Notes: Memoria 5-13 Same as l 13:11: Narcan [place] Ephedrine No Notes: Memori a 5-13 (Same as: l 13:11: ePHEDrine [place] 00 Sulfate) Diphenhydra No Notes: Kwadwo jase mine 5-13 (Same as: l 13:11: Benadryl) [place] Flumazenil No Notes: Memor ia 5-13 (Same as: l 13:11: Romazicon) [place] 00 Sodium No 500 mL, Memoria Chloride 5-13 Rate: 125 l 0.154 13:11: ml/hr, [place] MEQ/ML 00 Infuse Injectable over: 4 Solution [...] l 13:11: Lopressor) Push over 2 minutes Ondansetron No Notes: Kwadwo jase 5-13 (Same [...] l 13:11: ePHEDrine Sulfate) Diphenhydra No Notes: Kwdawo jase mine 5-13 (Same as: l 13:11: [...] 5-13 (Same as: l 13:11: Normodyne, [place] Trandate) Push over 2 minutes Give bolus over 2-3 minutes. Hydralazine No Notes: Kwadwo jase 5-13 (Same as: l 13:11: Apresoline ) Push over 5 minutes esmolol No Notes: Memoria 5-13 (Same as: l 13:11: Brevibloc) [place] Metoprolol No Notes: Memor ia 5-13 (Same as: l 13:11: Lopressor) Push over 2 minutes carisoprodo Yes 350 mg = 1 Memoria l 350 mg 5-13 tab, PO, l oral tablet 12:48: BID, 0 Herm johnny 00 Refill(s) lisinopril Yes 20 mg = 1 Me moria 20 mg oral 5-13 tab, PO, l tablet 12:48: Daily, # [place] 00 30 tab, 0 Refill(s) HYDROcodone Yes 10 mg = 1 M emoria 10 mg oral 5-13 cap, PO, l capsule, 12:48: Q12H, 0 Andrae n extended 00 Refill(s) release carisoprodo Yes 350 mg = 1 Memoria l 350 mg 5-13 tab, PO, l oral tablet 12:48: BID, 0 Herm johnny 00 Refill(s) lisinopril Yes 20 mg = 1 Me moria 20 mg oral 5-13 tab, PO, l tablet 12:48: Daily, # [place] 00 30 tab, 0 Refill(s) HYDROcodone Yes 10 mg = 1 M emoria 10 mg oral 5-13 cap, PO, l capsule, 12:48: Q12H, 0 Andrae n extended 00 Refill(s) release Vital Signs Vital Name Observation Time Observation Value Comments Source Systolic (mm Hg) 2016-02-03 01:00:00 Kwadwo rial [place] Diastolic (mm Hg) 2016-02-03 01:00:00 [facility] orial [place] [facility]-02[facility]03 [facility] (F[facility] 2016-02-03 01:00:00 98 F [facility] [place] Respitory Rate 2016-02-03 01:00:00 Memori al [place] Temperature Oral (F) 2016-02-02 20:58:00 98.1 F Memorial [place] Respitory Rate 2016-02-02 20:58:00 Memori al [place] Systolic (mm Hg) 2016-02-02 20:58:00 Kwadwo rial [place] Diastolic (mm Hg) 2016-02-02 20:58:00 Mem orial [place] Heart Rate 2016-02-02 20:58:00 Memorial [place] Systolic (mm Hg) 2016-02-02 17:07:00 Kwadwo rial [place] Diastolic (mm Hg) 2016-02-02 17:07:00 Mem orial [place] Heart Rate 2016-02-02 17:07:00 [facility] [place] Respitory Rate 2016-02-02 17:07:00 Memori al [place] Temperature Oral (F) 2016-02-02 17:07:00 98.2 F [facility] [place] Height 2016-01-19 15:41:00 180.34 cm [facility] [place] Weight 2016-01-19 15:41:00 [facility] [place] BMI Calculated 2016-01-19 15:41:00 Memori al [place] Weight 2015-12-02 12:45:00 [facility] [place] Height 2015-12-02 12:45:00 182.88 cm [facility] [place] BMI Calculated 2015-12-02 12:45:00 Memori al [place] Procedures Procedure Date / Time Performed Performing Clinician [facility] Epidural steroid Memorial Andrae n injection Incision and drainage of Memoria l [place] abscess of villa Encounters Start End Encounter Admission Attending Care Care Encounter Source Date/Time Date/Time Type Type Clinicians Facility Department ID 2020-04-14 2020-04-14 [id number] 00:00:00 00:00:00 Rajeev Lopez [id number] Edgardo [id number] Balwinder [id number] nal 059 Building 2020-01-15 2020-01-15 Outpatient R S[facility]HA [facility] [id number] [facility] 15:30:00 15:30:00 RAJEEV skinner [facility] 2019-12-24 2019-12-25 Outpatient X [facility] [id number] [facility] 17:31:30 13:45:00 DONELL skinner [facility] 2016-02-01 2016-02-03 Inpatient nullFlavo [facility] [id number] Memoria 16:34:00 02:41:00 r [place] 01 [facility] 2016-02-01 2016-02-03 Inpatient nullFlavo [facility] [id number] Memoria 16:34:00 02:41:00 r [place] 01 [facility] 2016-02-01 2016-02-02 Outpatient Primomo, [facility] [id number] 11:34:00 21:41:00 Vincent Funk 2015-12-02 2015[facility]12-02 [facility] [id number] Memoria 12:06:00 14:05:00 Outpatient r [place] 00 [facility] 2015-12-02 2015-12-02 [facility] [id number] Memoria 12:06:00 14:05:00 Outpatient r [place] 00 [facility] 2015-12-02 2015-12-02 Outpatient Primomo, [facility] [id number] 07:06:00 09:05:00 Vincent Funk Results Test Description Test Time Test Comments Results Result Comments Source CHEM PANEL 2016-02-02 10:38:00 Test Item Value Reference Range Interpretation Comme nts eGFR (test code = eGFR) 118 [facility]2016-07-14 10:38:00 Test Item Value Reference Range Interpretation Comments Creatinine Lvl (test code = Creatinine 0.79 0.50-1.40 Lvl) [facility]2016-07-14 10:38:00 Test Item Value Reference Range Interpretation Comments Glucose Lvl (test code = Glucose Lvl) 105 70-99 [facility]2016-07-14 10:38:00 Test Item Value Reference Range Interpretation Comments Calcium Lvl (test code = Calcium Lvl) 8.7 8.5-10.5 [facility]2016-07-14 10:38:00 Test Item Value Reference Range Interpretation Comments CO2 (test code = CO2) 23 24-32 [facility]2016-07-14 10:38:00 Test Item Value Reference Range Interpretation Comments Chloride Lvl (test code = Chloride Lvl) 108 95-109 [facility]2016-07-14 10:38:00 Test Item Value Reference Range Interpretation Comments Potassium Lvl (test code = Potassium 4.0 3.5-5.1 Lvl) [facility]2016-07-14 10:38:00 Test Item Value Reference Range Interpretation Comments Sodium Lvl (test code = Sodium Lvl) 142 135-145 [facility]2016-07-14 10:38:00 Test Item Value Reference Range Interpretation Comments BUN (test code = BUN) 12 7-22 [facility]2016-07-14 10:38:00 Test Item Value Reference Range Interpretation Comments AGAP (test code = AGAP) 15.0 10.0-20.0 [id number] 10:38:00 Test Item Value Reference Range Interpretation Comments MCH (test code = MCH) 27.2 pg 27.0-31.0 [facility] CenterWmuvamwYDRFRZZAYS0962-70-83 10:38:00 Test Item Value Reference Range Interpretation Comments MCHC (test code = MCHC) 33.0 32.0-36.0 [facility] Cent[id number] 10:38:00 Test Item Value Reference Range Interpretation Comments RDW (test code = RDW) 12.9 11.5-14.5 [facility] CenterKpoxlekUURVVVSPDP7579-72-55 10:38:00 Test Item Value Reference Range Interpretation Comments Hgb (test code = Hgb) 13.4 14.0-18.0 [facility] CenterPtvyrmpLJPPOKHJGG1903-03-00 10:38:00 Test Item Value Reference Range Interpretation Comments Hct (test code = Hct) 40.7 42.0-54.0 [facility] CenterQibtyzdMJBDOQCUXQ3955-16-30 10:38:00 Test Item Value Reference Range Interpretation Comments MCV (test code = MCV) 82.6 80.0-94.0 [facility] CenterSwhnkjuQUPPLEUACQ4673-19-96 10:38:00 Test Item Value Reference Range Interpretation Comments Platelet (test code = Platelet) 250 133-450 [facility] CenterSwtratdHZNKAVHTZC9069-13-65 10:38:00 Test Item Value Reference Range Interpretation Comments MPV (test code = MPV) 7.8 7.4-10.4 [facility] CenterEtgeokwPYWOMMSXVO1218-19-05 10:38:00 Test Item Value Reference Range Interpretation Comments WBC (test code = WBC) 12.3 3.7-10.4 [facility] CenterLlherclERZRUJHBIX1398-11-92 10:38:00 Test Item Value Reference Range Interpretation Comments RBC (test code = RBC) 4.93 4.70-6.10 [facility] CenterEfmhnqsTGMZYAFCKQ4321-36-01 10:38:00 Test Item Value Reference Range Interpretation Comments Segs-Bands # (test code = Segs-Bands #) 9.6 1.5-8.1 [facility] CenterWivmwnaUZVQHNIRLK6722-61-97 10:38:00 Test Item Value Reference Range Interpretation Comments Lymphocytes # (test code = Lymphocytes 1.9 1.0-5.5 #) [facility] Cent[id number] 10:38:00 Test Item Value Reference Range Interpretation Comments Monocytes # (test code 0.5 See_Comment [Aut omated message] The = Monocytes #) system which generated this result tra nsmitted reference range : <=0.8. The reference r frandy was not used to int erpret this result as normal/abnormal . [facility] CenterUjorlfqNGCWCBRFTN8832-30-63 10:38:00 Test Item Value Reference Range Interpretation Comments Eosinophils # (test code 0.0 See_Comment [A utomated message] The = Eosinophils #) system wh h generated this result tra nsmitted reference range : <=0.5. The reference r frandy was not used to int erpret this result as normal/abnormal . [facility] CenterDlzpgioSDRWVTRAEX9465-40-20 10:38:00 Test Item Value Reference Range Interpretation Comments Basophils # (test code 0.2 See_Comment [Aut omated message] The = Basophils #) system which generated this result tra nsmitted reference range : <=0.2. The reference r frandy was not used to int erpret this result as normal/abnormal . [facility] CenterNidktdxSUFFBGOLAG0519-21-16 10:38:00 Test Item Value Reference Range Interpretation Comments Monocytes (test code = Monocytes) 4.3 2.0-12.0 [facility] CenterMprwrrrCRWJIRDKZE8684-18-01 10:38:00 Test Item Value Reference Range Interpretation Comments Eosinophils (test code = 0.0 See_Comment [A utomated message] The Eosinophils) system which ge nerated this result tra nsmitted reference range : <=4.0. The reference r frandy was not used to int erpret this result as normal/abnormal . [facility] CenterTjnjxdeSDMICLOMFS4723-23-17 10:38:00 Test Item Value Reference Range Interpretation Comments Basophils (test code = 1.8 See_Comment [Aut omated message] The Basophils) system which ge nerated this result tra nsmitted reference range : <=1.0. The reference r frandy was not used to int erpret this result as normal/abnormal . [facility] CenterDgqtullSOOSTATOJS3436-56-26 10:38:00 Test Item Value Reference Range Interpretation Comments Segs (test code = Segs) 78.6 45.0-75.0 [facility] CenterJimpshaYCLSYVNUFK6253-79-88 10:38:00 Test Item Value Reference Range Interpretation Comments Lymphocytes (test code = Lymphocytes) 15.3 20.0-40.0 [facility] [id number] 10:38:00 Test Item Value Reference Range Interpretation Comments PTT (test code = PTT) 36.0 s 22.9-35.8 [facility] CenterNumxygqPORAHPWILZ0720-51-40 10:38:00 Test Item Value Reference Range Interpretation Comments PT (test code = PT) 15.5 s 12.0-14.7 [facility] CenterSxdhgjqGOBIVWVUNO8616-31-00 10:38:00 Test Item Value Reference Range Interpretation Comments INR (test code = INR) 1.20 0.85-1.17 [facility]2016-07-14 10:38:00 Test Item Value Reference Range Interpretation Comments eGFR (test code = eGFR) 118 [facility]2016-07-14 10:38:00 Test Item Value Reference Range Interpretation Comments Creatinine Lvl (test code = Creatinine 0.79 0.50-1.40 Lvl) [facility]2016-07-14 10:38:00 Test Item Value Reference Range Interpretation Comments Glucose Lvl (test code = Glucose Lvl) 105 70-99 [facility]2016-07-14 10:38:00 Test Item Value Reference Range Interpretation Comments Calcium Lvl (test code = Calcium Lvl) 8.7 8.5-10.5 [facility]2016-07-14 10:38:00 Test Item Value Reference Range Interpretation Comments CO2 (test code = CO2) 23 24-32 [facility]2016-07-14 10:38:00 Test Item Value Reference Range Interpretation Comments Chloride Lvl (test code = Chloride Lvl) 108 95-109 [facility]2016-07-14 10:38:00 Test Item Value Reference Range Interpretation Comments Potassium Lvl (test code = Potassium 4.0 3.5-5.1 Lvl) [facility]2016-07-14 10:38:00 Test Item Value Reference Range Interpretation Comments Sodium Lvl (test code = Sodium Lvl) 142 135-145 [facility]2016-07-14 10:38:00 Test Item Value Reference Range Interpretation Comments BUN (test code = BUN) 12 7-22 [facility]2016-07-14 10:38:00 Test Item Value Reference Range Interpretation Comments AGAP (test code = AGAP) 15.0 10.0-20.0 [facility] CenterSfqnaetLTYUGBSAEZ1527-07-80 10:38:00 Test Item Value Reference Range Interpretation Comments MCH (test code = MCH) 27.2 pg 27.0-31.0 [facility] CenterObwjavzWWRZSRIBFB0932-90-46 10:38:00 Test Item Value Reference Range Interpretation Comments MCHC (test code = MCHC) 33.0 32.0-36.0 [facility] CenterYwpkreoKLUXVWFWKQ4220-01-94 10:38:00 Test Item Value Reference Range Interpretation Comments RDW (test code = RDW) 12.9 11.5-14.5 [facility] CenterGjdiqhbEEADKBLQHR2803-66-12 10:38:00 Test Item Value Reference Range Interpretation Comments Hgb (test code = Hgb) 13.4 14.0-18.0 [facility] CenterQbubgauIAUIEHZJXF3469-13-90 10:38:00 Test Item Value Reference Range Interpretation Comments Hct (test code = Hct) 40.7 42.0-54.0 [facility] CenterXiofhfmTIZQHIIHAV2718-10-37 10:38:00 Test Item Value Reference Range Interpretation Comments MCV (test code = MCV) 82.6 80.0-94.0 [facility] CenterDqdrgnfVYQUQAIBUU7738-26-96 10:38:00 Test Item Value Reference Range Interpretation Comments Platelet (test code = Platelet) 250 133-450 [facility] CenterA[id number] 10:38:00 Test Item Value Reference Range Interpretation Comments MPV (test code = MPV) 7.8 7.4-10.4 [facility] CenterWxbffjoQMHTBMOQHD3238-69-60 10:38:00 Test Item Value Reference Range Interpretation Comments WBC (test code = WBC) 12.3 3.7-10.4 [facility] CenterYprhykmDMOAVLMQBI7236-06-65 10:38:00 Test Item Value Reference Range Interpretation Comments RBC (test code = RBC) 4.93 4.70-6.10 [facility] Cent[id number] 10:38:00 Test Item Value Reference Range Interpretation Comments Segs-Bands # (test code = Segs-Bands #) 9.6 1.5-8.1 [facility] CenterQfcfzblVALJGPHQSE3318-05-40 10:38:00 Test Item Value Reference Range Interpretation Comments Lymphocytes # (test code = Lymphocytes 1.9 1.0-5.5 #) [facility] Cent[id number] 10:38:00 Test Item Value Reference Range Interpretation Comments Monocytes # (test code 0.5 See_Comment [Aut omated message] The = Monocytes #) system which generated this result tra nsmitted reference range : <=0.8. The reference r frandy was not used to int erpret this result as normal/abnormal . [facility] CenterFaiczibTDXPCQPKJI1592-08-46 10:38:00 Test Item Value Reference Range Interpretation Comments Eosinophils # (test code 0.0 See_Comment [A utomated message] The = Eosinophils #) system whic h generated this result tra nsmitted reference range : <=0.5. The reference r frandy was not used to int erpret this result as normal/abnormal . [facility] CenterHmgchuuBRIXBUAMKX6639-45-27 10:38:00 Test Item Value Reference Range Interpretation Comments Basophils # (test code 0.2 See_Comment [Aut omated message] The = Basophils #) system which generated this result tra nsmitted reference range : <=0.2. The reference r frandy was not used to int erpret this result as normal/abnormal . [facility] CenterArwybbjYMSJGRZOTE7825-52-58 10:38:00 Test Item Value Reference Range Interpretation Comments Monocytes (test code = Monocytes) 4.3 2.0-12.0 [facility] CenterMcnyjdkPFIIGXPOQO2203-57-55 10:38:00 Test Item Value Reference Range Interpretation Comments Eosinophils (test code = 0.0 See_Comment [A utomated message] The Eosinophils) system which ge nerated this result tra nsmitted reference range : <=4.0. The reference r frandy was not used to int erpret this result as normal/abnormal . [facility] CenterFlwliejBMXNLYNRZB3760-34-28 10:38:00 Test Item Value Reference Range Interpretation Comments Basophils (test code = 1.8 See_Comment [Aut omated message] The Basophils) system which ge nerated this result tra nsmitted reference range : <=1.0. The reference r frandy was not used to int erpret this result as normal/abnormal . [facility] CenterGyyihuuAKGNRAEDPB4480-49-06 10:38:00 Test Item Value Reference Range Interpretation Comments Segs (test code = Segs) 78.6 45.0-75.0 [facility] CenterNjwrxjsPLVWUYVMBI4060-23-53 10:38:00 Test Item Value Reference Range Interpretation Comments Lymphocytes (test code = Lymphocytes) 15.3 20.0-40.0 [facility] CenterNicususRLDXHLECAA4170-16-12 10:38:00 Test Item Value Reference Range Interpretation Comments PTT (test code = PTT) 36.0 s 22.9-35.8 [facility] CenterYheztrxVKWFQHKQBG0585-27-53 10:38:00 Test Item Value Reference Range Interpretation Comments PT (test code = PT) 15.5 s 12.0-14.7 [facility] CenterIowxdflKKFMPXQMQL1925-89-28 10:38:00 Test Item Value Reference Range Interpretation Comments INR (test code = INR) 1.20 0.85-1.17 [facility] [employer] [id number] 13:22:00 Test Item Value Reference Range Interpretation Comments ABO/Rh (test code = ABO/Rh) A POS [facility] [employer] [id number] 13:22:00 Test Item Value Reference Range Interpretation Comments Antibody Scrn (test Negative (02/01/16 8:22 code = Antibody Scrn) AM) [facility] [employer] [id number] 13:22:00 Test Item Value Reference Range Interpretation Comments ABO/Rh (test code = ABO/Rh) A POS [facility] [employer] [id number] 13:22:00 Test Item Value Reference Range Interpretation Comments Antibody Scrn (test Negative (02/01/16 8:22 code = Antibody Scrn) AM) [facility]2016-06-30 16:50:00 Test Item Value Reference Range Interpretation Comments Vitamin D, 25-OH, Total (test code = 24 30-100 Vitamin D, 25-OH, Total) [facility]2016-06-30 16:50:00 Test Item Value Reference Range Interpretation Comments ALT (test code = ALT) 35 See_Comment [Auto mated message] The system which ge nerated this result transmit elpidio reference range : <=65. The reference range was not used to interpr et this result as azra l/abnormal. [facility]2016-06-30 16:50:00 Test Item Value Reference Range Interpretation Comments CO2 (test code = CO2) 30 24-32 [facility]2016-06-30 16:50:00 Test Item Value Reference Range Interpretation Comments Albumin Lvl (test code = Albumin Lvl) 3.9 3.5-5.0 [facility]2016-06-30 16:50:00 Test Item Value Reference Range Interpretation Comments AST (test code = AST) 23 See_Comment [Auto mated message] The system which ge nerated this result transmit elpidio reference range : <=37. The reference range was not used to interpr et this result as azra l/abnormal. [facility]2016-06-30 16:50:00 Test Item Value Reference Range Interpretation Comments eGFR (test code = eGFR) 104 [facility]2016-06-30 16:50:00 Test Item Value Reference Range Interpretation Comments Creatinine Lvl (test code = Creatinine 0.96 0.50-1.40 Lvl) [facility]2016-06-30 16:50:00 Test Item Value Reference Range Interpretation Comments BUN (test code = BUN) 16 7-22 [facility]2016-06-30 16:50:00 Test Item Value Reference Range Interpretation Comments Glucose Lvl (test code = Glucose Lvl) 103 70-99 [facility]2016-06-30 16:50:00 Test Item Value Reference Range Interpretation Comments Sodium Lvl (test code = Sodium Lvl) 140 135-145 [facility]2016-06-30 16:50:00 Test Item Value Reference Range Interpretation Comments Potassium Lvl (test code = Potassium 4.2 3.5-5.1 Lvl) [facility]2016-06-30 16:50:00 Test Item Value Reference Range Interpretation Comments Chloride Lvl (test code = Chloride Lvl) 102 95-109 [facility]2016-06-30 16:50:00 Test Item Value Reference Range Interpretation Comments Calcium Lvl (test code = Calcium Lvl) 9.4 8.5-10.5 [facility]2016-06-30 16:50:00 Test Item Value Reference Range Interpretation Comments Bili Total (test code = Bili Total) 0.8 0.2-1.3 [facility]2016-06-30 16:50:00 Test Item Value Reference Range Interpretation Comments Bili Total (test code = Bili Total) 0.8 0.2-1.3 [facility]2016-06-30 16:50:00 Test Item Value Reference Range Interpretation Comments Alk Phos (test code = Alk Phos) 137 39-136 [facility]2016-06-30 16:50:00 Test Item Value Reference Range Interpretation Comments Total Protein (test code = Total 8.0 6.4-8.4 Protein) [facility]2016-06-30 16:50:00 Test Item Value Reference Range Interpretation Comments B/C Ratio (test code = B/C Ratio) 17 6-25 [facility]2016-06-30 16:50:00 Test Item Value Reference Range Interpretation Comments AGAP (test code = AGAP) 12.2 10.0-20.0 [facility]2016-06-30 16:50:00 Test Item Value Reference Range Interpretation Comments A/G Ratio (test code = A/G Ratio) 1.0 0.7-1.6 [facility]2016-06-30 16:50:00 Test Item Value Reference Range Interpretation Comments Globulin (test code = Globulin) 4.1 2.0-4.0 [facility] CenterYquwoumIIXUPTIHMW3786-05-92 16:50:00 Test Item Value Reference Range Interpretation Comments PTT (test code = PTT) 38.8 s 22.9-35.8 [facility] CenterKwrliimATOVXWWWAP2544-70-27 16:50:00 Test Item Value Reference Range Interpretation Comments PT (test code = PT) 14.1 s 12.0-14.7 [facility] CenterQpjgrzyHDDEZTMPQV5479-92-55 16:50:00 Test Item Value Reference Range Interpretation Comments INR (test code = INR) 1.06 0.85-1.17 [facility] Cent[id number] 16:50:00 Test Item Value Reference Range Interpretation Comments RDW (test code = RDW) 12.9 11.5-14.5 [facility] CenterVjcbjvxIPJUJGGIMO3709-22-50 16:50:00 Test Item Value Reference Range Interpretation Comments Platelet (test code = Platelet) 277 133-450 [facility] CenterFmybyipXMKZZRWURH9211-18-12 16:50:00 Test Item Value Reference Range Interpretation Comments MCHC (test code = MCHC) 33.0 32.0-36.0 [facility] CenterDeszlqsUROZCDWTYV7889-75-45 16:50:00 Test Item Value Reference Range Interpretation Comments MPV (test code = MPV) 7.1 7.4-10.4 [facility] CenterLnibvgrJWPTPJGWWQ2582-96-02 16:50:00 Test Item Value Reference Range Interpretation Comments MCV (test code = MCV) 83.0 80.0-94.0 [facility] CenterZrmnljjXFNVCIFRLH8193-32-41 16:50:00 Test Item Value Reference Range Interpretation Comments MCH (test code = MCH) 27.4 pg 27.0-31.0 [facility] CenterMplbeczZQQGCIBFVY8541-23-85 16:50:00 Test Item Value Reference Range Interpretation Comments Hct (test code = Hct) 44.5 42.0-54.0 [facility] CenterDoklsuqBMRIFEPSGB1032-42-11 16:50:00 Test Item Value Reference Range Interpretation Comments Hgb (test code = Hgb) 14.7 14.0-18.0 [facility] CenterIrbypfoAPQMQMJMGQ2320-82-53 16:50:00 Test Item Value Reference Range Interpretation Comments RBC (test code = RBC) 5.36 4.70-6.10 [facility] CenterVmmsygfEIEZDWWPDO0976-16-23 16:50:00 Test Item Value Reference Range Interpretation Comments WBC (test code = WBC) 8.3 3.7-10.4 [facility] CenterGighrytKKTDBNBZWN3832-60-85 16:50:00 Test Item Value Reference Range Interpretation Comments Monocytes # (test code 0.4 See_Comment [Aut omated message] The = Monocytes #) system which generated this result tra nsmitted reference range : <=0.8. The reference r frandy was not used to int erpret this result as normal/abnormal . [facility] CenterZlcezgsUSCGHXCQYT7071-19-54 16:50:00 Test Item Value Reference Range Interpretation Comments Basophils # (test code 0.0 See_Comment [Aut omated message] The = Basophils #) system which generated this result tra nsmitted reference range : <=0.2. The reference r frandy was not used to int erpret this result as normal/abnormal . [facility] CenterSnvjeliHFOPWEBJYX6759-93-60 16:50:00 Test Item Value Reference Range Interpretation Comments Eosinophils (test code = 0.7 See_Comment [A utomated message] The Eosinophils) system which ge nerated this result tra nsmitted reference range : <=4.0. The reference r frandy was not used to int erpret this result as normal/abnormal . [facility] CenterCvoowqkVZUQAKOHUW9120-60-62 16:50:00 Test Item Value Reference Range Interpretation Comments Basophils (test code = 0.5 See_Comment [Aut omated message] The Basophils) system which ge nerated this result tra nsmitted reference range : <=1.0. The reference r frandy was not used to int erpret this result as normal/abnormal . [facility] CenterZwuvixvRRPGCMBFBU9914-57-79 16:50:00 Test Item Value Reference Range Interpretation Comments Eosinophils # (test code 0.1 See_Comment [A utomated message] The = Eosinophils #) system whic h generated this result tra nsmitted reference range : <=0.5. The reference r frandy was not used to int erpret this result as normal/abnormal . [facility] CenterIdyynliLJXSDNFOXN4970-21-23 16:50:00 Test Item Value Reference Range Interpretation Comments Lymphocytes # (test code = Lymphocytes 2.4 1.0-5.5 #) [facility] CenterTkzxnomPLBVDWLSCR6789-62-03 16:50:00 Test Item Value Reference Range Interpretation Comments Segs-Bands # (test code = Segs-Bands #) 5.3 1.5-8.1 [facility] CenterSsbaievZQOTMDZZSV2589-88-35 16:50:00 Test Item Value Reference Range Interpretation Comments Monocytes (test code = Monocytes) 4.8 2.0-12.0 [facility]PenqjqjHHLXAAIIKF2224-94-90 16:50:00 Test Item Value Reference Range Interpretation Comments Lymphocytes (test code = Lymphocytes) 29.4 20.0-40.0 [facility] CenterLsqzmjnQJYSRQGNET9870-77-30 16:50:00 Test Item Value Reference Range Interpretation Comments Segs (test code = Segs) 64.6 45.0-75.0 [facility] CenterPARATHYROID [id number] 16:50:00 Test Item Value Reference Range Interpretation Comments PTH Intact (test code = PTH Intact) 59.5 11.1-79.5 [facility] CenterSPECIAL [id number] 16:50:00 Test Item Value Reference Range Interpretation Comments Hgb A1C (test code = Hgb A1C) 5.5 [facility] Centeropendorse [id number] 16:50:00 Test Item Value Reference Range Interpretation Comments Vitamin D, 25-OH, Total (test code = 24 30-100 Vitamin D, 25-OH, Total) [facility] [id number] 16:50:00 Test Item Value Reference Range Interpretation Comments ALT (test code = ALT) 35 See_Comment [Auto mated message] The system which ge nerated this result transmit elpidio reference range : <=65. The reference range was not used to interpr et this result as azra l/abnormal. [facility] CenterSynarc [id number] 16:50:00 Test Item Value Reference Range Interpretation Comments CO2 (test code = CO2) 30 24-32 [facility] [id number] 16:50:00 Test Item Value Reference Range Interpretation Comments Albumin Lvl (test code = Albumin Lvl) 3.9 3.5-5.0 [facility] [id number] 16:50:00 Test Item Value Reference Range Interpretation Comments AST (test code = AST) 23 See_Comment [Auto mated message] The system which ge nerated this result transmit elpidio reference range : <=37. The reference range was not used to interpr et this result as azra l/abnormal. [facility]opendorse [id number] 16:50:00 Test Item Value Reference Range Interpretation Comments eGFR (test code = eGFR) 104 [facility]opendorse [id number] 16:50:00 Test Item Value Reference Range Interpretation Comments Creatinine Lvl (test code = Creatinine 0.96 0.50-1.40 Lvl) [facility]2016-06-30 16:50:00 Test Item Value Reference Range Interpretation Comments BUN (test code = BUN) 16 7-22 [facility]2016-06-30 16:50:00 Test Item Value Reference Range Interpretation Comments Glucose Lvl (test code = Glucose Lvl) 103 70-99 [facility]2016-06-30 16:50:00 Test Item Value Reference Range Interpretation Comments Sodium Lvl (test code = Sodium Lvl) 140 135-145 [facility]2016-06-30 16:50:00 Test Item Value Reference Range Interpretation Comments Potassium Lvl (test code = Potassium 4.2 3.5-5.1 Lvl) [facility]2016-06-30 16:50:00 Test Item Value Reference Range Interpretation Comments Chloride Lvl (test code = Chloride Lvl) 102 95-109 [facility]2016-06-30 16:50:00 Test Item Value Reference Range Interpretation Comments Calcium Lvl (test code = Calcium Lvl) 9.4 8.5-10.5 [facility]2016-06-30 16:50:00 Test Item Value Reference Range Interpretation Comments Alk Phos (test code = Alk Phos) 137 39-136 [facility]2016-06-30 16:50:00 Test Item Value Reference Range Interpretation Comments Total Protein (test code = Total 8.0 6.4-8.4 Protein) [facility]2016-06-30 16:50:00 Test Item Value Reference Range Interpretation Comments B/C Ratio (test code = B/C Ratio) 17 6-25 [facility]2016-06-30 16:50:00 Test Item Value Reference Range Interpretation Comments AGAP (test code = AGAP) 12.2 10.0-20.0 [facility]2016-06-30 16:50:00 Test Item Value Reference Range Interpretation Comments A/G Ratio (test code = A/G Ratio) 1.0 0.7-1.6 [facility]2016-06-30 16:50:00 Test Item Value Reference Range Interpretation Comments Globulin (test code = Globulin) 4.1 2.0-4.0 [facility] CenterYrcuelfPUYDPLIHZQ9404-26-68 16:50:00 Test Item Value Reference Range Interpretation Comments PTT (test code = PTT) 38.8 s 22.9-35.8 [facility] CenterYwfjldnAVEZMUNVOM0144-34-46 16:50:00 Test Item Value Reference Range Interpretation Comments PT (test code = PT) 14.1 s 12.0-14.7 [facility] CenterVzdpwwxEDXAMGNDVE2202-10-97 16:50:00 Test Item Value Reference Range Interpretation Comments INR (test code = INR) 1.06 0.85-1.17 [facility] CenterZfbqckbCXNNYXBNVK1607-41-39 16:50:00 Test Item Value Reference Range Interpretation Comments RDW (test code = RDW) 12.9 11.5-14.5 [facility] CenterPmrbugyJOYLQXLZEG5646-62-07 16:50:00 Test Item Value Reference Range Interpretation Comments Platelet (test code = Platelet) 277 449-450 [facility] CenterFvttamiRDNOESLPFK3826-71-55 16:50:00 Test Item Value Reference Range Interpretation Comments MCHC (test code = MCHC) 33.0 32.0-36.0 [facility] CenterCrecplkJAFKAGOLKZ2507-20-58 16:50:00 Test Item Value Reference Range Interpretation Comments MPV (test code = MPV) 7.1 7.4-10.4 [facility] CenterKilxkfbZLIVEGRDTI0906-19-29 16:50:00 Test Item Value Reference Range Interpretation Comments MCV (test code = MCV) 83.0 80.0-94.0 [facility] CenterZegwezhDRIINEJDSM0139-91-10 16:50:00 Test Item Value Reference Range Interpretation Comments MCH (test code = MCH) 27.4 pg 27.0-31.0 [facility] CenterYfqjvlgCZTNDXZMMC9285-06-05 16:50:00 Test Item Value Reference Range Interpretation Comments Hct (test code = Hct) 44.5 42.0-54.0 [facility] CenterJfbjblvUOWCTUCGFF9064-46-21 16:50:00 Test Item Value Reference Range Interpretation Comments Hgb (test code = Hgb) 14.7 14.0-18.0 [facility] CenterZfvysnwBNODPIOQNZ0447-07-88 16:50:00 Test Item Value Reference Range Interpretation Comments RBC (test code = RBC) 5.36 4.70-6.10 [facility] CenterNwjnnydUUKXWJOROP7063-36-05 16:50:00 Test Item Value Reference Range Interpretation Comments WBC (test code = WBC) 8.3 3.7-10.4 [facility] CenterCuuqvafTVPJGUXGYD5043-07-30 16:50:00 Test Item Value Reference Range Interpretation Comments Monocytes # (test code 0.4 See_Comment [Aut omated message] The = Monocytes #) system which generated this result tra nsmitted reference range : <=0.8. The reference r frandy was not used to int erpret this result as normal/abnormal . [facility] CenterWjuchgbICCRWQTAIH9992-88-45 16:50:00 Test Item Value Reference Range Interpretation Comments Basophils # (test code 0.0 See_Comment [Aut omated message] The = Basophils #) system which generated this result tra nsmitted reference range : <=0.2. The reference r frandy was not used to int erpret this result as normal/abnormal . [facility] CenterPhdptnhCWEKNKQIHX9117-20-95 16:50:00 Test Item Value Reference Range Interpretation Comments Eosinophils (test code = 0.7 See_Comment [A utomated message] The Eosinophils) system which ge nerated this result tra nsmitted reference range : <=4.0. The reference r frandy was not used to int erpret this result as normal/abnormal . [facility] CenterGeebseuLHPIXQKICC8972-10-66 16:50:00 Test Item Value Reference Range Interpretation Comments Basophils (test code = 0.5 See_Comment [Aut omated message] The Basophils) system which ge nerated this result tra nsmitted reference range : <=1.0. The reference r frandy was not used to int erpret this result as normal/abnormal . [facility] CenterXqigssxHOAOZAFHIH5072-22-10 16:50:00 Test Item Value Reference Range Interpretation Comments Eosinophils # (test code 0.1 See_Comment [A utomated message] The = Eosinophils #) system whic h generated this result tra nsmitted reference range : <=0.5. The reference r frandy was not used to int erpret this result as normal/abnormal . [facility] CenterMoejpvrUUNNIAGDIQ6811-09-83 16:50:00 Test Item Value Reference Range Interpretation Comments Lymphocytes # (test code = Lymphocytes 2.4 1.0-5.5 #) [facility] Cent[id number] 16:50:00 Test Item Value Reference Range Interpretation Comments Segs-Bands # (test code = Segs-Bands #) 5.3 1.5-8.1 [facility] CenterNnaprvxYMFXWSRIQZ6482-90-37 16:50:00 Test Item Value Reference Range Interpretation Comments Monocytes (test code = Monocytes) 4.8 2.0-12.0 [facility] CsqauuiYXZPAYXZFH9656-85-62 16:50:00 Test Item Value Reference Range Interpretation Comments Lymphocytes (test code = Lymphocytes) 29.4 20.0-40.0 [facility] BghgdgaQRXMJFSZAS3148-18-93 16:50:00 Test Item Value Reference Range Interpretation Comments Segs (test code = Segs) 64.6 45.0-75.0 [facility] CenterannPARATHYROID [id number] 16:50:00 Test Item Value Reference Range Interpretation Comments PTH Intact (test code = PTH Intact) 59.5 11.1-79.5 [facility] CenterannSPECIAL [id number] 16:50:00 Test Item Value Reference Range Interpretation Comments Hgb A1C (test code = Hgb A1C) 5.5 [facility] CenterannURINE AND [id number] 16:15:00 Test Item Value Reference Range Interpretation Comments UA Urobilinogen (test code = UA <=1.0 mg/dL 0.1-1.0 Urobilinogen) [facility] [id number] 16:15:00 Test Item Value Reference Range Interpretation Comments UA Ketones (test code = UA Ketones) Negative [facility] CenterannURINE AND [id number] 16:15:00 Test Item Value Reference Range Interpretation Comments Micro? (test code = Performed *NA*(01/19/16 Micro?) 11:15 AM) [facility]ann[facility] AND [id number] 16:15:00 Test Item Value Reference Range Interpretation Comments UA Color (test code = Light Yellow UA Color) *NA*(01/19/16 11:15 AM) [facility] [id number] 16:15:00 Test Item Value Reference Range Interpretation Comments UA Turbidity (test code = Clear (01/19/16 11:15 UA Turbidity) AM) [facility]ann[facility] [id number] 16:15:00 Test Item Value Reference Range Interpretation Comments UA Spec Grav (test code = UA Spec Grav) 1.017 [facility] AND [id number] 16:15:00 Test Item Value Reference Range Interpretation Comments UA Protein (test code = UA Negative mg/dL Protein) [facility] AND [id number] 16:15:00 Test Item Value Reference Range Interpretation Comments UA Leuk Est (test Negative (01/19/16 11:15 code = UA Leuk Est) AM) [facility] AND [id number] 16:15:00 Test Item Value Reference Range Interpretation Comments UA Bili (test code = Negative *NA*(01/19/16 UA Bili) 11:15 AM) [facility] AND [id number] 16:15:00 Test Item Value Reference Range Interpretation Comments UA Glucose (test code = UA Negative mg/dL Glucose) [facility] AND [id number] 16:15:00 Test Item Value Reference Range Interpretation Comments UA pH (test code = UA pH) 5.0 5.0-8.0 [facility] AND [id number] 16:15:00 Test Item Value Reference Range Interpretation Comments UA RBC (test code = no gt See_Comment [Automa elpidio message] The UA RBC) system which ge nerated this result transmit elpidio reference range : <=2. The reference range was not used to interpr et this result as azra l/abnormal. [facility] AND [id number] 16:15:00 Test Item Value Reference Range Interpretation Comments UA Mucus (test code = UA Mucus) Few /LPF [facility] AND [id number] 16:15:00 Test Item Value Reference Range Interpretation Comments UA Blood (test code = Small *ABN*(01/19/16 UA Blood) 11:15 AM) [facility] AND [id number] 16:15:00 Test Item Value Reference Range Interpretation Comments UA Nitrite (test code Negative (01/19/16 11:15 = UA Nitrite) AM) [facility] AND [id number] 16:15:00 Test Item Value Reference Range Interpretation Comments UA Urobilinogen (test code = UA <=1.0 mg/dL 0.1-1.0 Urobilinogen) [facility] AND [id number] 16:15:00 Test Item Value Reference Range Interpretation Comments UA Ketones (test code = UA Ketones) Negative [facility] AND [id number] 16:15:00 Test Item Value Reference Range Interpretation Comments Micro? (test code = Performed *NA*(01/19/16 Micro?) 11:15 AM) [facility] AND [id number] 16:15:00 Test Item Value Reference Range Interpretation Comments UA Color (test code = Light Yellow UA Color) *NA*(01/19/16 11:15 AM) [facility] AND [id number] 16:15:00 Test Item Value Reference Range Interpretation Comments UA Turbidity (test code = Clear (01/19/16 11:15 UA Turbidity) AM) [facility] AND [id number] 16:15:00 Test Item Value Reference Range Interpretation Comments UA Spec Grav (test code = UA Spec Grav) 1.017 [facility] AND [id number] 16:15:00 Test Item Value Reference Range Interpretation Comments UA Protein (test code = UA Negative mg/dL Protein) [facility] AND [id number] 16:15:00 Test Item Value Reference Range Interpretation Comments UA Leuk Est (test Negative (01/19/16 11:15 code = UA Leuk Est) AM) [facility] AND [id number] 16:15:00 Test Item Value Reference Range Interpretation Comments UA Bili (test code = Negative *NA*(01/19/16 UA Bili) 11:15 AM) [facility] AND [id number] 16:15:00 Test Item Value Reference Range Interpretation Comments UA Glucose (test code = UA Negative mg/dL Glucose) [facility] AND [id number] 16:15:00 Test Item Value Reference Range Interpretation Comments UA pH (test code = UA pH) 5.0 5.0-8.0 [facility] AND [id number] 16:15:00 Test Item Value Reference Range Interpretation Comments UA RBC (test code = no gt See_Comment [Automa elpidio message] The UA RBC) system which ge nerated this result transmit elpdiio reference range : <=2. The reference range was not used to interpr et this result as azra l/abnormal. [facility] AND [id number] 16:15:00 Test Item Value Reference Range Interpretation Comments UA Mucus (test code = UA Mucus) Few /LPF [facility] AND [id number] 16:15:00 Test Item Value Reference Range Interpretation Comments UA Blood (test code = Small *ABN*(01/19/16 UA Blood) 11:15 AM) [facility] AND [id number] 16:15:00 Test Item Value Reference Range Interpretation Comments UA Nitrite (test code Negative (01/19/16 11:15 = UA Nitrite) AM) [facility]
[2022-07-01] MEDS ORDERED: ONDANSETRON 4 MG/2 ML VIAL ONE (07:52)
[2022-07-01] MEDS ORDERED: NA CHLORIDE 0.9% 1,000 ML ONE (07:52)
[2022-07-01 07:57] LABS: Absolute Lymphocytes (CBC) 1.7 K/uL (0.7-4.9); Hematocrit 41.1 % (39.6-49.0); Lymphocytes % 17.9 % (15.3-44.8); MCV 83.5 fL (80-100); MPV 6.6 fL (7.6-11.3); RBC Red Blood Cell Count 4.92 M/uL (4.33-5.43)
[2022-07-01] MEDS ORDERED: MORPHINE 4 MG/ML SYR ONE ×2 (07:58→08:26)
--- NOTE | 2022-07-01 08:23 | RAD REPORT ---
EXAM DESCRIPTION: US - Abdomen Exam Limited - 07/01/2022 8:09 am CLINICAL HISTORY: ABD PAIN COMPARISON: <Comparisons> FINDINGS: The gallbladder demonstrates no gallstones. Gallbladder sludge is present. No pericholecys tic fluid or gallbladder wall thickening. The common bile duct is normal measuring 5 mm. Positive son ographic Covarrubias's sign. The liver demonstrates no findings of intrahepatic biliary dilatation. IMPRESSION: Sludge and positive sonographic Covarrubias's sign. Though the sonographic Covarrubias's sign is p ositive, the absence of cholelithiasis and other ancillary would favor an alternate etiology. A HIDA scan could confirm cystic duct patency.
[2022-07-01 08:31] LABS: Albumin 3.9 g/dL (3.4-5.0); Bilirubin Total 0.3 mg/dL (0.2-1.0); Potassium 3.7 mmol/L (3.5-5.1); Protein, Total 7.5 g/dL (6.4-8.2)
--- NOTE | 2022-07-01 09:24 | EDPHYS ---
Physician Documentation [facility] Name: Marquise Jhaveri Age: 41 yrs Sex: Male : 1980 Arrival Date: 07/01/2022 Time: 07:31 Bed 15 Private MD: Sumeet Lazar T ED Physician Raymond Chavez HPI: 07/01 09:48 This 41 yrs old Male presents to ER via Ambulatory with complaints of ms3 Abdominal Pain. 09:48 The patient presents with abdominal pain in the epigastric area. Onset: The ms3 symptoms/episode began/occurred this morning. The symptoms do not radiate. Associated signs and symptoms: Pertinent negatives: nausea, vomiting, and diarrhea, chest pain, fever. The symptoms are described as burning. Modifying factors: The symptoms are alleviated by nothing, the symptoms are aggravated by nothing. Severity of pain: At its worst the pain was severe a 10 / 10 in the emergency department the pain is unchanged is a 10 / 10. Historical: - Allergies: 07:41 No Known Allergies; jl7 - Home Meds: 07:41 labetalol Oral [Active]; lisinopril 10 mg Oral tab 1 tab twice a day [Active]; jl7 - PMHx: 07:41 Anxiety; herniated discs; Hypertension; Pancreatitis; jl7 - PSHx: 07:41 back surgery; Gastric Bypass; jl7 - Immunization history:: Adult Immunizations unknown. - Social history:: Smoking status: Reported history of juuling and/or vaping. Patient uses alcohol, occasionally. ROS: 09:48 Constitutional: Negative for fever, and chills. Neck: Negative for injury, pain, and ms3 swelling, Cardiovascular: Negative for chest pain, and palpitations. Respiratory: Negative for shortness of breath, cough, wheezing, and pleuritic chest pain. 09:48 MS/Extremity: Negative for injury and deformity, Skin: Negative for injury, rash, and discoloration, Psych: Negative for depression, anxiety, suicide ideation, homicidal ideation, and hallucinations. 09:48 Abdomen/GI: Positive for abdominal pain. 09:48 All other systems are negative. Exam: 09:48 Constitutional: This is a well developed, well nourished patient who is awake, alert, ms3 and in no acute distress. Head/Face: Normocephalic, atraumatic. Neck: Trachea midline, no cervical lymphadenopathy. Supple, full range of motion without nuchal rigidity, or vertebral point tenderness. No Meningismus. Chest/axilla: Normal chest wall appearance and motion. Nontender with no deformity. Cardiovascular: Regular rate and rhythm with a normal S1 and S2. No gallops, murmurs, or rubs. Normal PMI, no JVD. No pulse deficits. Respiratory: Lungs have equal breath sounds bilaterally, clear to auscultation and percussion. No rales, rhonchi or wheezes noted. No increased work of breathing, no retractions or nasal flaring. 09:48 Skin: Warm, dry with normal turgor. Normal color with no rashes, no lesions, and no evidence of cellulitis. MS/ Extremity: Pulses equal, no cyanosis. Neurovascular intact. Full, normal range of motion. 09:48 Abdomen/GI: Inspection: abdomen appears normal, Bowel sounds: normal, Palpation: severe abdominal tenderness, in the epigastric area. Vital Signs: 07:39 BP 140 / 101; Pulse 87; Resp 17; Temp 98; Pulse Ox 97% ; Weight 127.01 kg; Height 6 ft. jl7 0 in. (182.88 cm); Pain 10/10; 07:45 BP 147 / 101; Pulse 90; Pulse Ox 96% on R/A; ko1 08:00 BP 157 / 115; Pulse 83; Pulse Ox 97% on R/A; ko1 09:00 BP 154 / 96; Pulse 70; Pulse Ox 98% on R/A; ko1 10:00 BP 171 / 98; Pulse 83; Pulse Ox 98% on R/A; ko1 13:00 BP 161 / 110; Pulse 64; Pulse Ox 99% ; ko1 15:00 BP 173 / 109; Pulse 59; Pulse Ox 100% ; ko1 07:39 Body Mass Index 37.97 (127.01 kg, 182.88 cm) jl7 MDM: 07:38 Patient medically screened. ms3 09:48 Differential diagnosis: bowel obstruction, cholecystitis, Cholelithiasis, pancreatitis. ms3 Data reviewed: vital signs, nurses notes, lab test result(s), radiologic studies, and as a result, I will admit patient. Counseling: I had a detailed discussion with the patient and/or guardian regarding: the historical points, exam findings, and any diagnostic results supporting the discharge/admit diagnosis, lab results, radiology results, the need for further work-up and treatment in the hospital. ED course: Discussed case with MARIA C Burch, and she accepts patient on behalf of Dr Cherry.. 07/01 07:38 Order name: CBC with Diff; Complete Time: 08:29 ms3 07/01 07:38 Order name: CMP; Complete Time: 08:34 ms3 07/01 07:38 Order name: Lipase; Complete Time: 08:34 ms3 07/01 07:38 Order name: US Abdomen Limited; Complete Time: 08:29 ms3 07/01 08:52 Order name: SARS RAPID; Complete Time: 10:38 eb 07/01 07:38 Order name: IV Saline Lock; Complete Time: 07:48 ms3 07/01 07:38 Order name: Labs collected and sent; Complete Time: 07:48 ms3 Administered Medications: 07:52 Drug: NS 0.9% 1000 ml Route: IV; Rate: 1 bolus; Site: right forearm; ko1 08:15 Follow up: Response: No adverse reaction ko1 07:52 Drug: Zofran (Ondansetron) 4 mg Route: IVP; Site: right forearm; ko1 08:16 Follow up: Response: No adverse reaction; Nausea is decreased ko1 07:58 Drug: morphine 4 mg Route: IVP; Infused Over: 4 mins; Site: right forearm; ko1 08:16 Follow up: Response: No adverse reaction; Pain is unchanged, physician notified ko1 08:27 Drug: morphine 4 mg Route: IVP; Infused Over: 4 mins; Site: right forearm; ko1 09:39 Drug: Dilaudid (HYDROmorphone) 0.5 mg Route: IVP; Site: right forearm; ko1 14:15 Drug: Pepcid (famotidine) 20 mg Route: IVP; Site: right antecubital; jl7 14:34 Drug: GI Cocktail without - (Maalox Suspension 30 ml, Lidocaine Liquid 2 % 15 jl7 ml) Route: PO; Disposition Summary: 07/01/22 09:23 Hospitalization Ordered Hospitalization Status: Inpatient Admission ms3 Provider: Edil Cherry msMegan Location: Telemetry/MedSurg (Inpatient) ms3 Condition: Stable ms3 Problem: new ms3 Symptoms: are unchanged ms3 Bed/Room Type: Standard ms3 Room Assignment: 215(07/01/22 13:57) eb Diagnosis - Alcohol induced pancreatitis ms3 - Upper abdominal pain, unspecified ms3 Forms: - Medication Reconciliation Form ms3 - SBAR form ms3 Signatures: Dispatcher [employer] Emmanuel Dempsey RN RN jl7 Jenny Oneil Marcus, DO DO ms3 Martina Calderon RN RN ko1 Corrections: (The following items were deleted from the chart) 13:57 09:23 ms3 eb
--- NOTE | 2022-07-01 09:24 | ER ---
Nurse's Notes [facility] Name: Marquise Jhaveri Age: 41 yrs Sex: Male : 1980 Arrival Date: 07/01/2022 Time: 07:31 Bed 15 Private MD: Sumeet Lazar T Diagnosis: Alcohol induced pancreatitis;Upper abdominal pain, unspecified Presentation: 07/01 07:39 Chief complaint: Patient states: RUQ abdominal pain since 0200, hx of pancreatitis from jl7 drinking alcohol and drank alcohol yesterday. Coronavirus screen: Vaccine status: Patient reports being unvaccinated. At this time, the client does not indicate any symptoms associated with coronavirus-19. Ebola Screen: No symptoms or risks identified at this time. Initial Sepsis Screen: Does the patient meet any 2 criteria? No. Patient's initial sepsis screen is negative. Does the patient have a suspected source of infection? No. Patient's initial sepsis screen is negative. Risk Assessment: Do you want to hurt yourself or someone else? Patient reports no desire to harm self or others. Onset of symptoms was July 01, 2022 at 02:00. 07:39 Method Of Arrival: Ambulatory [facility] 07:39 Acuity: ARNULFO 3 7 Triage Assessment: 07:41 General: Appears in no apparent distress. uncomfortable, Behavior is cooperative, jl7 anxious. Pain: Complains of pain in right upper quadrant Pain currently is 8 out of 10 on a pain scale. GI: Reports upper abdominal pain. Historical: - Allergies: 07:41 No Known Allergies; jl7 - Home Meds: 07:41 labetalol Oral [Active]; lisinopril 10 mg Oral tab 1 tab twice a day [Active]; jl7 - PMHx: 07:41 Anxiety; herniated discs; Hypertension; Pancreatitis; 7 - PSHx: 07:41 back surgery; Gastric Bypass; jl7 - Immunization history:: Adult Immunizations unknown. - Social history:: Smoking status: Reported history of juuling and/or vaping. Patient uses alcohol, occasionally. Screenin:45 Abuse screen: Denies threats or abuse. Denies injuries from another. Nutritional ko1 screening: No deficits noted. Tuberculosis screening: No symptoms or risk factors identified. Fall Risk None identified. Assessment: 07:45 General: Appears distressed, uncomfortable, Behavior is cooperative, appropriate for ko age. Pain: Complains of pain in abdomen and right upper quadrant. Neuro: No deficits noted. Cardiovascular: No deficits noted. Respiratory: No deficits noted. GI: Bowel sounds present X 4 quads. Abdomen is tender to palpation in right upper quadrant Guarding noted in right upper quadrant. : No deficits noted. EENT: No deficits noted. Derm: No deficits noted. Musculoskeletal: No deficits noted. Vital Signs: 07:39 BP 140 / 101; Pulse 87; Resp 17; Temp 98; Pulse Ox 97% ; Weight 127.01 kg; Height 6 ft. jl7 0 in. (182.88 cm); Pain 10/10; 07:45 BP 147 / 101; Pulse 90; Pulse Ox 96% on R/A; ko1 08:00 BP 157 / 115; Pulse 83; Pulse Ox 97% on R/A; ko1 09:00 BP 154 / 96; Pulse 70; Pulse Ox 98% on R/A; ko1 10:00 BP 171 / 98; Pulse 83; Pulse Ox 98% on R/A; ko1 13:00 BP 161 / 110; Pulse 64; Pulse Ox 99% ; ko1 15:00 BP 173 / 109; Pulse 59; Pulse Ox 100% ; ko1 07:39 Body Mass Index 37.97 (127.01 kg, 182.88 cm) jl7 ED Course: 07:31 Patient arrived in ED. am2 07:31 Sumeet Lazar MD is Private Physician. am2 07:32 Raymond Chavez DO is Attending Physician. ms3 07:33 Martina Calderon, RN is Primary Nurse. ko1 07:41 Triage completed. jl7 07:41 Arm band placed on right wrist. jl7 07:45 Patient has correct armband on for positive identification. Bed in low position. Call ko1 light in reach. Pulse ox on. NIBP on. 07:45 Inserted saline lock: 20 gauge in right forearm, using aseptic technique. Blood ko1 collected. 07:48 CBC with Diff Sent. ko1 07:48 CMP Sent. ko1 07:48 Lipase Sent. ko1 08:11 US Abdomen Limited In Process Unspecified. EDMS 09:22 Edil Cherry MD is Hospitalizing Provider. ms3 09:39 SARS RAPID Sent. ko1 15:00 No provider procedures requiring assistance completed. Patient admitted, IV remains in jl7 place. intact, No redness/swelling at site. Administered Medications: 07:52 Drug: NS 0.9% 1000 ml Route: IV; Rate: 1 bolus; Site: right forearm; ko1 08:15 Follow up: Response: No adverse reaction ko1 07:52 Drug: Zofran (Ondansetron) 4 mg Route: IVP; Site: right forearm; ko1 08:16 Follow up: Response: No adverse reaction; Nausea is decreased ko1 07:58 Drug: morphine 4 mg Route: IVP; Infused Over: 4 mins; Site: right forearm; ko1 08:16 Follow up: Response: No adverse reaction; Pain is unchanged, physician notified ko1 08:27 Drug: morphine 4 mg Route: IVP; Infused Over: 4 mins; Site: right forearm; ko1 09:39 Drug: Dilaudid (HYDROmorphone) 0.5 mg Route: IVP; Site: right forearm; ko1 14:15 Drug: Pepcid (famotidine) 20 mg Route: IVP; Site: right antecubital; jl7 14:34 Drug: GI Cocktail without - (Maalox Suspension 30 ml, Lidocaine Liquid 2 % 15 jl7 ml) Route: PO; Medication: 15:34 VIS not applicable for this client. jl7 Outcome: 09:23 Decision to Hospitalize by Provider. ms3 15:00 Admitted to Med/surg accompanied by tech, via wheelchair, room 215, with chart. jl7 15:00 Condition: stable 15:00 Discharge instructions given to patient, Instructed on the need for admit, Demonstrated understanding of instructions. 15:47 Patient left the ED. ko1 Signatures: Dispatcher [employer] EDMS Emmanuel Martinez RN RN jl7 Zofia Blank amRaymond Jones DO DO ms3 Martina Calderon RN RN ko1 Corrections: (The following items were deleted from the chart) 15:06 15:04 BP 161 / 110; Pulse 64bpm; Pulse Ox 99%; ko1 ko1
[2022-07-01] MEDS ORDERED: HYDROMORPHONE HCL 0.5 MG/0.5 ML INJ ONE (09:36)
[2022-07-01 10:06] LABS: SARS-CoV-2 Antigen Rapid Res Negative (Negative)
--- NOTE | 2022-07-01 10:19 | P.HP ---
Certification for Inpatient Patient admitted to: Inpatient With expected LOS: <2 Midnights Patient will require the following post-hospital care: None Practitioner: I am a practitioner with admitting privileges, knowledge of patient current condition, hospital course, and medical plan of care. Services: Services provided to patient in accordance with Admission requirements found in Title 42 Section 412.3 of the Code of Federal Regulations <Marcin Castillo - Last Filed: 07/01/22 10:14> Patient History Date of Service: 07/01/22 Reason for admission: alcoholic pancreatitis History of Present Illness: Mr. Jhaveri is a 41 yo M with a history of alcoholic pancreatitis and hypertension who presents with RUQ abdominal pain and back pain beginning at 2:00 AM today. Saturday he drank 11 seltzers throughout the day and on Saturday he had multiple mixed drinks. He denies nausea and vomiting. Last meal was at 6:00pm yesterday evening. He has had mutliple episodes of alcoholic pancreatitis in the past and is aware that alcohol triggers these flares. AST 50 alk phos 14 lipase 2622. Vital signs stable. - Past Medical/Surgical History Has patient received pneumonia vaccine in the past: No Diabetic: No -: Hypertension -: Chronic pain -: Alcohol use -: History of gastric bypass -: Gastric bypass -: lumbar surgery Psychosocial/ Personal History: Patient is - Family History Mother -: Hypertension Father -: Heart disease, Diabetes - Social History Smoking Status: Current some day smoker Alcohol use: Yes CD- Drugs: No Caffeine use: No Place of Residence: Home <Marcin Castillo - Last Filed: 07/01/22 10:14> Date of Service: 07/01/22 <Edil Cherry - Last Filed: 07/01/22 17:38> Allergies No Known Allergies Allergy (Unverified 05/31/12 20:12) Home Medications: lisinopriL [Prinivil*] 10 mg PO BID #60 tab 11/17/20 Nebivolol HCl [Bystolic*] 5 mg PO DAILY 03/25/22 Review of Systems General: Unremarkable Eyes: Unremarkable ENT: Unremarkable Respiratory: Unremarkable Cardiovascular: Unremarkable Gastrointestinal: Abdominal Pain Genitourinary: Unremarkable Musculoskeletal: Unremarkable Integumentary: Unremarkable Neurological: Unremarkable Lymphatics: Unremarkable <Marcin Castillo - Last Filed: 07/01/22 10:14> Physical Examination - Physical Exam General: Alert, In no apparent distress, Obese HEENT: Atraumatic, Normocephalic Neck: Supple, Without JVD or thyroid abnormality Respiratory: Clear to auscultation bilaterally, Normal air movement Cardiovascular: Regular rate/rhythm, Normal S1 S2 Gastrointestinal: Normal bowel sounds, Tenderness Musculoskeletal: No tenderness Integumentary: No rashes Neurological: Normal speech, Normal affect - Studies Laboratory Data (last 24 hrs) 07/01/22 07:46: Sodium 135 L, Potassium 3.7, BUN 11, Creatinine 0.81, Glucose 140 H, Total Bilirubin 0.3, AST 50 H, ALT 60, Alkaline Phosphatase 174 H, Lipase 2622 H 07/01/22 07:46: WBC 9.70, Hgb 13.7, Hct 41.1, Plt Count 226 <Marcin Castillo - Last Filed: 07/01/22 10:14> - Studies Laboratory Data (last 24 hrs) 07/01/22 07:46: Sodium 135 L, Potassium 3.7, BUN 11, Creatinine 0.81, Glucose 140 H, Total Bilirubin 0.3, AST 50 H, ALT 60, Alkaline Phosphatase 174 H, Lipase 2622 H 07/01/22 07:46: WBC 9.70, Hgb 13.7, Hct 41.1, Plt Count 226 <Edil Cherry - Last Filed: 07/01/22 17:38> Assessment and Plan - Plan Assessment Alcoholic pancreatitis Hypertension Alcohol use disorder Plan Alcoholic pancreatitis - NPO, advance diet as tolerated - aggressive IV fluid hydration - pain management and antiemetics as needed - trend lipase and amylase Hypertension - IV hydralazine as needed, pain control Alcohol use disorder - alcohol cessation counseling - daily MVI, folic acid, thiamine - monitor for signs of alcohol withdrawal, benzos as neededd DVT ppx: Lovenox Full code Discharge Plan: Home Plan to discharge in: 48 Hours - Advance Directives Does patient have a Living Will: No Does patient have a Durable POA for Healthcare: No - Code Status/Comfort Care Code Status Assessed: Yes (full cod ) Critical Care: No Time Spent Managing Pts Care (In Minutes): 70 <Marcin Castillo - Last Filed: 07/01/22 10:14> Physician Review: Patient Assessed, Agree with Above Assessment and Plan <Edil Cherry - Last Filed: 07/01/22 17:38>
[2022-07-01] MEDS ORDERED: ACETAMINOPHEN 500 MG TAB PO PRN (11:48)
[2022-07-01] MEDS: HYDROMORPHONE HCL 0.5 MG/0.5 ML INJ IV PRN ×4 (11:50→23:50)
[2022-07-01] MEDS ORDERED: MAGNES/ALUMIN/SIMET 30ML UCUP ONE (14:16)
[2022-07-01] MEDS ORDERED: LIDOCAINE VISCOUS 2% SOLN 15 ML UDC ONE (14:16)
[2022-07-01] MEDS ORDERED: FAMOTIDINE 20 MG/2 ML VIAL IV ONE (14:16)
[2022-07-01] MEDS: MORPHINE 2 MG/ML SYR IV PRN ×3 (15:32→22:13)
[2022-07-01 15:52] VITALS: BMI 38.6
[2022-07-01] MEDS: Ringers Lactate 1,000 ML IV SCH ×2 (16:01→23:50)
[2022-07-01] MEDS: FOLIC ACID 1 MG, MULTIVITAMINS INJ 10 ML, THIAMINE HCL 100 MG in NA CHLORIDE 0.9% 1,000 ML IV SCH (16:16)
--- NOTE | 2022-07-01 19:07 | RAD REPORT ---
EXAM DESCRIPTION: CTAbdomen Pelvis W Contrast - 07/01/2022 6:53 pm CLINICAL HISTORY: pancreatitis? COMPARISON: 03/25/2022 TECHNIQUE: CT of the abdomen and pelvis was performed with IV contrast. All CT scans are performed using dose optimization technique as appropriate and may include automated exposure control or mA/KV adjustment according to patient size. FINDINGS: Lower chest: No acute abnormality. Liver: Hepatic steatosis Biliary: No biliary ductal dilatation. Stomach: Status post Don-en-Y gastric bypass. Duodenum: No significant focal abnormality. Pancreas: Diffuse peripancreatic edema. Fluid collection at the pancreatic tail measuring 3.3 cm is n ot significantly changed prior. Spleen: No significant abnormality. Adrenal: No suspicious lesions. Kidney/ureter: No hydronephrosis. No renal calculi. Retroperitoneum: No retroperitoneal adenopathy. Stranding/ fluid extends in the retroperitoneum secon mona to pancreatitis. No loculated fluid collections. Vascular: No aneurysm. Splenic vein thrombosis with collaterals. Bowel: No significant focal abnormality. Peritoneum: No ascites or free air. Fat containing umbilical hernia. Bladder: Grossly unremarkable. Reproductive: No adnexal masses. Bones: No acute fracture. Other: n/a IMPRESSION: Acute pancreatitis. Pseudocyst at the tail of the pancreas is unchanged. No new complica ting features identified.
[2022-07-02] MEDS: HYDRALAZINE HCL 20 MG/ML VIAL IV PRN ×2 (01:30→18:46)
[2022-07-02] MEDS: MORPHINE 2 MG/ML SYR IV PRN ×4 (02:22→15:54)
[2022-07-02] MEDS: HYDROMORPHONE HCL 0.5 MG/0.5 ML INJ IV PRN ×3 (03:35→12:17)
[2022-07-02 04:01] LABS: Absolute Lymphocytes (CBC) 1.1 K/uL (0.7-4.9); Hematocrit 37.5 % (39.6-49.0); Lymphocytes % 8.1 % (15.3-44.8); MCV 82.9 fL (80-100); MPV 7.2 fL (7.6-11.3); RBC Red Blood Cell Count 4.53 M/uL (4.33-5.43)
[2022-07-02 04:13] LABS: Magnesium 1.9 mg/dL (1.6-2.4); Phosphorus 3.1 mg/dL (2.5-4.9); Potassium 3.6 mmol/L (3.5-5.1)
[2022-07-02] MEDS ORDERED: KCL 20 MEQ/100 mL IVPB 20 MEQ/100 ML BAG IV SCH ×2 (06:00→10:00)
[2022-07-02] MEDS: Ringers Lactate 1,000 ML IV SCH ×3 (06:47→20:45)
[2022-07-02] MEDS: ENOXAPARIN 40 MG/0.4 ML SQ SCH (08:13)
[2022-07-02] MEDS: THIAMINE HCL 100 MG TABLET PO SCH (08:13)
[2022-07-02] MEDS: FOLIC ACID 1 MG TABLET PO SCH (08:13)
[2022-07-02] MEDS: ONDANSETRON 4 MG/2 ML VIAL IV PRN ×2 (08:20→22:08)
[2022-07-02] MEDS: MULTIVITAMIN TAB PO SCH (10:55)
--- NOTE | 2022-07-02 13:51 | P.PN ---
Subjective Date of Service: 07/02/22 Subjective: No new changes, No C/O voiced, Improving Review of Systems 10-point ROS is otherwise unremarkable Physical Examination - Vital Signs Temperature: 98.7 F Blood Pressure: 165/96 Pulse: 74 Respirations: 18 Pulse Ox (%): 98 - Physical Exam General: Alert, In no apparent distress, Oriented x3 Respiratory: Clear to auscultation bilaterally, Normal air movement Cardiovascular: Regular rate/rhythm, Normal S1 S2 Gastrointestinal: Normal bowel sounds, Soft and benign, Non-distended, No rebound, No guarding, Tenderness Musculoskeletal: No clubbing, No swelling, No tenderness Neurological: Sensation intact, Cranial nerves 3-12 intact - Studies Medications List Reviewed: Yes Assessment & Plan - Problems (Diagnosis) (1) Acute alcoholic pancreatitis Current Visit: No Status: Acute Qualifiers: Acute pancreatitis complication: no infection or necrosis Qualified Code(s): K85.20 - Alcohol induced acute pancreatitis without necrosis or infection - Plan Plan: 1. Continue with IV fluids 2. Continue with pain control 3. Counseled regarding alcohol cessation 4. Monitor labs including LFTs and lipase 5. GI DVT prophylaxis - Advance Directives Does patient have a Living Will: No Does patient have a Durable POA for Healthcare: No Physician Review: Patient Assessed, Agree with Above Assessment and Plan
--- NOTE | 2022-07-02 14:55 | P.CNS ---
Date of Consult: 07/02/22 Reason for consult: Acute pancreatitis with sludge in the gallbladder History of present illness: Patient is a 41-year-old gentleman with history of pancreatitis with pseudocyst secondary to alcohol use. Patient's had multiple episodes of pancreatitis requiring hospital admission. Patient drank mixed drinks and beers 2 days prior to coming to the emergency room. Patient had epigastric and right upper quadrant pain. Patient denies nausea or vomiting. Patient denies diarrhea, and constipation, but bright red blood per rectum, dysuria or hematuria. Patient denies sore throat, runny nose, cough, headaches, dizziness, chest pain, fever or chills. Review of systems: Otherwise unremarkable Past medical history: Hypertension and pancreatitis with pseudocyst Past surgical history: Gastric bypass Allergies: None Social history: Patient does smoke and drink alcohol and has been counseled by myself. Family history: Noncontributory Vital signs: Stable, afebrile Physical exam: Awake alert oriented x3 Head and neck exam: No neck masses, no JV, D throat clear and neck supple Chest: Clear Heart: S1-S2 Abdomen: Soft, non-and right upper quadrant tenderness no rebound rigidity or guarding distended, hypoactive bowel sounds with epigastric Extremity: Neurovascular intact, nontender Neuro: Nonfocal Diagnostic data: Lipase and amylase are still elevated, LFTs reviewed ultrasound and CAT scan reviewed. Ultrasound shows sludge in the gallbladder with no stones. CAT scan shows acute pancreatitis with a pseudocyst at the tail of the pancreas unchanged from the previous admission. Assessment: Acute alcoholic hepatitis with pseudocysts. I doubt that the sludge in the gallbladder is causing the pancreatitis at this time. Plan/recommendation: N.p.o., IV fluid, DT prophylaxis, empiric antibiotics and serial abdominal exam. Patient needs to stop his alcohol consumption or this disease will continue to progress. Patient was made aware of the consequences of continued alcohol abuse. At this time, patient requires medical management. There is no need for any surgical intervention at this time. Plan of care discussed with . CC:
[2022-07-02] MEDS: FOLIC ACID 1 MG, MULTIVITAMINS INJ 10 ML, THIAMINE HCL 100 MG in NA CHLORIDE 0.9% 1,000 ML IV SCH (16:52)
[2022-07-02] MEDS: HYDROMORPHONE HCL 1 MG/ML INJ IV PRN ×2 (18:09→21:41)
[2022-07-03] MEDS: HYDROMORPHONE HCL 1 MG/ML INJ IV PRN ×6 (01:13→20:28)
[2022-07-03 04:58] LABS: Absolute Lymphocytes (CBC) 0.8 K/uL (0.7-4.9); Hematocrit 34.4 % (39.6-49.0); Lymphocytes % 7.8 % (15.3-44.8); MCV 84.4 fL (80-100); MPV 7.3 fL (7.6-11.3); RBC Red Blood Cell Count 4.07 M/uL (4.33-5.43)
[2022-07-03] MEDS: HYDRALAZINE HCL 20 MG/ML VIAL IV PRN (05:00)
[2022-07-03] MEDS: Ringers Lactate 1,000 ML IV SCH ×2 (05:01→08:00)
[2022-07-03 05:14] LABS: Potassium 3.4 mmol/L (3.5-5.1)
[2022-07-03] MEDS: MULTIVITAMIN TAB PO SCH (08:43)
[2022-07-03] MEDS: FOLIC ACID 1 MG TABLET PO SCH (08:43)
[2022-07-03] MEDS: THIAMINE HCL 100 MG TABLET PO SCH (08:43)
[2022-07-03] MEDS: ENOXAPARIN 40 MG/0.4 ML SQ SCH (08:44)
[2022-07-03] MEDS ORDERED: POTASSIUM CL SA 10 MEQ TAB PO ONE (09:00)
[2022-07-03] MEDS ORDERED: METOPROLOL TAR 50 MG TAB PO ONE (10:16)
[2022-07-03] MEDS ORDERED: cloNIDine HCL 0.1 MG TAB PO ONE (10:17)
--- NOTE | 2022-07-03 10:49 | P.PN ---
Date of Service: 07/03/22 Subjective: Patient still is complaining of epigastric pain. Patient denies nausea or vomiting. Patient is anxious. Objective: Vital signs are significant for elevated blood pressure and heart rate, afebrile. Laboratory data shows a normal white count with normal amylase and lipase. Abdomen: Soft, nondistended, hypoactive bowel sounds with minimal tenderness in the epigastric region. No rebound, rigidity or guarding noted. Assessment: Acute pancreatitis with pseudocyst Plan: Continue n.p.o. IV fluids and IV antibiotics. DT prophylaxisAtivan as needed. We will start diet when patient is nontender. CC:
[2022-07-03] MEDS: NA CHLORIDE 0.9% 1,000 ML IV SCH (10:50)
[2022-07-03] MEDS: chlordiazePOXIDE HCl 25 MG CAP PO SCH ×2 (12:17→20:00)
[2022-07-03] MEDS: METOPROLOL TAR 50 MG TAB PO SCH (17:51)
[2022-07-03] MEDS: LORazepam 2 MG/ML VIAL IV PRN (22:16)
--- NOTE | 2022-07-03 23:13 | P.PN ---
Date of Service: 07/03/22 Subjective Subjective: Patient is improving. Clinical symptoms continue to get much better. CT abd/pelvis with decreased inflammation/pancreatitis Review of Systems 10-point ROS is otherwise unremarkable Physical Examination - Vital Signs reviewed - Physical Exam General: Alert, In no apparent distress, Oriented x3 Respiratory: Clear to auscultation bilaterally, Normal air movement Cardiovascular: Regular rate/rhythm, Normal S1 S2 Gastrointestinal: Normal bowel sounds, Soft and benign, Non-distended, No rebound, No guarding, Minimal Tenderness Musculoskeletal: No clubbing, No swelling, No tenderness Neurological: Sensation intact, Cranial nerves 3-12 intact Assessment & Plan - Problems (Diagnosis) (1) Acute alcoholic pancreatitis Current Visit: No Status: Acute Qualifiers: Acute pancreatitis complication: no infection or necrosis Qualified Code(s): K85.20 - Alcohol induced acute pancreatitis without necrosis or infection - Plan Continue with plan of care as mentioned below: 1. Continue with IV fluids 2. Continue with pain control-requesting IV pain medications 3. Counseled regarding alcohol cessation 4. Monitor labs including LFTs and lipase(improved to normal limits) 5. Advance diet as tolerated 6. GI DVT prophylaxis - Advance Directives Does patient have a Living Will: No Does patient have a Durable POA for Healthcare: No Physician Review: Patient Assessed, Agree with Above Assessment and Plan
[2022-07-04] MEDS: HYDROMORPHONE HCL 1 MG/ML INJ IV PRN ×6 (00:50→22:38)
[2022-07-04] MEDS: LORazepam 2 MG/ML VIAL IV PRN ×6 (02:35→23:51)
[2022-07-04] MEDS: chlordiazePOXIDE HCl 25 MG CAP PO SCH ×3 (04:00→19:42)
[2022-07-04 04:44] LABS: Absolute Lymphocytes (CBC) 0.6 K/uL (0.7-4.9); Hematocrit 29.7 % (39.6-49.0); Lymphocytes % 8.2 % (15.3-44.8); MCV 84.8 fL (80-100); MPV 7.6 fL (7.6-11.3)
[2022-07-04 05:04] LABS: Potassium 3.3 mmol/L (3.5-5.1)
[2022-07-04] MEDS: NA CHLORIDE 0.9% 1,000 ML IV SCH (06:24)
[2022-07-04] MEDS: METOPROLOL TAR 50 MG TAB PO SCH ×2 (06:40→17:51)
[2022-07-04] MEDS: MULTIVITAMIN TAB PO SCH (08:51)
[2022-07-04] MEDS: ENOXAPARIN 40 MG/0.4 ML SQ SCH (08:51)
[2022-07-04] MEDS: THIAMINE HCL 100 MG TABLET PO SCH (08:52)
[2022-07-04] MEDS: FOLIC ACID 1 MG TABLET PO SCH (08:53)
[2022-07-04] MEDS ORDERED: POTASSIUM CL SA 10 MEQ TAB PO ONE ×2 (09:00→22:17)
--- NOTE | 2022-07-04 09:28 | RAD REPORT ---
EXAM DESCRIPTION: CTAbdomen Pelvis W Contrast - 07/04/2022 8:14 am CLINICAL HISTORY: Abdominal pain. Persistent abd pain COMPARISON: Abdomen Pelvis W Contrast dated 07/01/2022; Abdomen Pelvis W Contrast dated 03/25/2022 ; Abdomen Pelvis W Contrast dated 10/24/2021; Abdomen Pelvis W Contrast dated 09/07/2021 TECHNIQUE: Biphasic CT imaging of the abdomen and pelvis was performed with 100 ml non-ionic IV cont rast. All CT scans are performed using dose optimization technique as appropriate and may include automated exposure control or mA/KV adjustment according to patient size. FINDINGS: The lung bases are clear. The liver demonstrates diffuse fatty infiltration. Postsurgical changes are present about the stomach . Spleen, adrenal glands and kidneys are within normal limits. The head and uncinate process of the p ancreas appear enlarged compatible with recent diagnosis pancreatitis. The degree of inflammation tripp ears mildly improved since prior study. Well-formed fluid collection in the pancreatic tail region me asures 4.5 x 3.0 cm compatible with a pseudocyst. No bowel obstruction, free air, free fluid or abscess. Set small fat containing umbilical hernia. The appendix is normal. No evidence of significant lymphadenopathy. No suspicious bony findings. IMPRESSION: Mild improvement is seen in the acute pancreatitis findings in head and uncinate process of the pancreas since 07/01/2022. Thick-walled pancreatic tail pseudocyst is noted measuring 4.5 x 3 .5 cm.
--- NOTE | 2022-07-04 10:12 | P.PN ---
Date of Service: 07/04/22 Subjective: Patient's pain is much better. No vomiting. Mild nausea. Objective: Vital signs are significant for elevated blood pressure and heart rate, afebrile. Patient's white count is normal amylase and lipase are normal. CT of the abdomen pelvis shows improvement in the pancreatitis. The pseudocyst is unchanged. Abdomen: Soft, nondistended, hypoactive bowel sounds with very minimal tenderness in the epigastric region. No rebound, rigidity or guarding noted. Assessment: Acute pancreatitis with pseudocyst Plan: Start clear liquids. Continue IV fluids and IV antibiotics. Patient is clinically improving. CC:
[2022-07-04 15:57] LABS: Magnesium 1.6 mg/dL (1.6-2.4); Phosphorus 2.1 mg/dL (2.5-4.9); Potassium 3.2 mmol/L (3.5-5.1)
[2022-07-05] MEDS: HYDROMORPHONE HCL 1 MG/ML INJ IV PRN ×5 (02:58→21:34)
[2022-07-05] MEDS: NA CHLORIDE 0.9% 1,000 ML IV SCH (02:58)
[2022-07-05 04:00] LABS: Magnesium 1.8 mg/dL (1.6-2.4); Phosphorus 3.2 mg/dL (2.5-4.9); Potassium 3.8 mmol/L (3.5-5.1)
[2022-07-05] MEDS: chlordiazePOXIDE HCl 25 MG CAP PO SCH ×3 (04:00→20:00)
[2022-07-05] MEDS ORDERED: MAGNESIUM SULFATE 1 gm IVPB 1 GM/100 ML BAG IV ONE (05:05)
[2022-07-05] MEDS: LORazepam 2 MG/ML VIAL IV PRN ×3 (05:59→18:07)
[2022-07-05] MEDS: METOPROLOL TAR 50 MG TAB PO SCH ×2 (06:08→18:06)
[2022-07-05] MEDS: MULTIVITAMIN TAB PO SCH (08:04)
[2022-07-05] MEDS: THIAMINE HCL 100 MG TABLET PO SCH (08:04)
[2022-07-05] MEDS: ENOXAPARIN 40 MG/0.4 ML SQ SCH (08:04)
[2022-07-05] MEDS: FOLIC ACID 1 MG TABLET PO SCH (08:04)
[2022-07-05] MEDS ORDERED: POTASSIUM CL SA 10 MEQ TAB PO ONE (09:00)
--- NOTE | 2022-07-05 10:13 | P.PN ---
Date of Service: 07/05/22 Subjective: Patient with no complaints. Objective: Vital signs are stable, afebrile. Abdomen: Soft, nondistended, normal bowel sounds with no tenderness. No rebound, rigidity or guarding noted. Assessment: Acute pancreatitis with pseudocyst Plan: Advance diet. Continue IV fluids and IV antibiotics. Patient is clinically improving. Patient can be discharged in 24 to 48 hours. CC:
--- NOTE | 2022-07-05 21:20 | P.PN ---
Date of Service: 07/04/22 Subjective Subjective: Tolerating clears; lipase WNL. CT abd/pelvis with decreased inflammati on/pancreatitis Review of Systems 10-point ROS is otherwise unremarkable Physical Examination - Vital Signs reviewed - Physical Exam General: Alert, In no apparent distress, Oriented x3 Respiratory: Clear to auscultation bilaterally, Normal air movement Cardiovascular: Regular rate/rhythm, Normal S1 S2 Gastrointestinal: Normal bowel sounds, Soft and benign, Non-distended, No rebound, No guarding, Minimal Tenderness Musculoskeletal: No clubbing, No swelling, No tenderness Neurological: Sensation intact, Cranial nerves 3-12 intact Assessment & Plan - Problems (Diagnosis) (1) Acute alcoholic pancreatitis Current Visit: No Status: Acute Qualifiers: Acute pancreatitis complication: no infection or necrosis Qualified Code(s): K85.20 - Alcohol induced acute pancreatitis without necrosis or infection - Plan Continue with plan of care as mentioned below: 1. Continue with IV fluids 2. Continue with pain control-requesting IV pain medications 3. Counseled regarding alcohol cessation 4. Monitor labs including LFTs and lipase(improved to normal limits) 5. Clear liquid diet and advance diet as tolerated 6. GI DVT prophylaxis
--- NOTE | 2022-07-05 21:21 | P.PN ---
Date of Service: 07/05/22 Subjective Subjective: Patient is currently on full liquid diet. He is having some heartburn. Lipase is normal. Pancreatitis symptoms seemed to improve but he continues asking for IV pain medication. Review of Systems 10-point ROS is otherwise unremarkable Physical Examination - Vital Signs reviewed - Physical Exam General: Alert, In no apparent distress, Oriented x3 Respiratory: Clear to auscultation bilaterally, Normal air movement Cardiovascular: Regular rate/rhythm, Normal S1 S2 Gastrointestinal: Normal bowel sounds, Soft and benign, Non-distended, No rebound, No guarding, Minimal Tenderness Musculoskeletal: No clubbing, No swelling, No tenderness Neurological: Sensation intact, Cranial nerves 3-12 intact Assessment & Plan - Problems (Diagnosis) (1) Acute alcoholic pancreatitis Current Visit: No Status: Acute Qualifiers: Acute pancreatitis complication: no infection or necrosis Qualified Code(s): K85.20 - Alcohol induced acute pancreatitis without necrosis or infection - Plan Continue with plan of care as mentioned below: 1. Heplock IV 2. Continue with pain control-requesting IV pain medications persistently 3. Counseled regarding alcohol cessation 4. Monitor labs including LFTs and lipase(improved to normal limits) 5. Clear liquid diet and advance diet as tolerated 6. GI DVT prophylaxis
[2022-07-06 00:15] VITALS: O2SAT 99
[2022-07-06] MEDS: HYDROMORPHONE HCL 1 MG/ML INJ IV PRN ×2 (01:30→06:28)
[2022-07-06] MEDS: LORazepam 2 MG/ML VIAL IV PRN ×2 (03:57→08:23)
[2022-07-06] MEDS: chlordiazePOXIDE HCl 25 MG CAP PO SCH (03:59)
[2022-07-06 04:09] LABS: Absolute Lymphocytes (CBC) 0.6 K/uL (0.7-4.9); Lymphocytes % 11.5 % (15.3-44.8); MCV 86.1 fL (80-100); MPV 7.6 fL (7.6-11.3)
[2022-07-06 04:27] LABS: Albumin 2.6 g/dL (3.4-5.0); Bilirubin Total 0.4 mg/dL (0.2-1.0); Magnesium 2.2 mg/dL (1.6-2.4); Potassium 3.9 mmol/L (3.5-5.1); Protein, Total 6.6 g/dL (6.4-8.2)
[2022-07-06] MEDS ORDERED: POTASSIUM CL SA 10 MEQ TAB PO ONE (05:10)
[2022-07-06] MEDS: METOPROLOL TAR 50 MG TAB PO SCH (06:28)
[2022-07-06] MEDS: NA CHLORIDE 0.9% 1,000 ML IV SCH (06:31)
[2022-07-06] MEDS: THIAMINE HCL 100 MG TABLET PO SCH (08:24)
[2022-07-06] MEDS: MULTIVITAMIN TAB PO SCH (08:24)
[2022-07-06] MEDS: ENOXAPARIN 40 MG/0.4 ML SQ SCH (08:24)
[2022-07-06] MEDS: FOLIC ACID 1 MG TABLET PO SCH (08:24)
[2022-07-06 08:37] VITALS: BP 131/75; TEMP 98.4
== END 2022-07-06 09:55 | disposition home or self-care (01) | DRG 439 ==
LOC: ER 07:30 → ERHOLD 09:38 → 2ND 15:04
PROVIDERS: ADMIT Internal Medicine; ATTEND Hospitalist
DX: K85.20 Alcohol induced acute pancreatitis without necrosis or infection (principal); K86.3 Pseudocyst of pancreas; E66.9 Obesity, unspecified; F10.10 Alcohol abuse, uncomplicated; F41.9 Anxiety disorder, unspecified; I10 Essential (primary) hypertension; G89.29 Other chronic pain; Z98.84 Bariatric surgery status; Z68.38 Body mass index [BMI] 38.0-38.9, adult
CPT/HCPCS: 36415; 74177; 76705; 80048; 80053; 82150; 83690; 83735; 84100; 84132; 85025; 87811; 99285; J0360; J1170; J1650; J2270; J2405; J3411; J3475; J3480; J7030; J7120; Q9967

== ENCOUNTER 2022-07-07 16:00 | Emergency (ER) | payer BC ==
--- OUTSIDE RECORDS SUMMARY | 2022-07-07 16:07 | XMS REPORT | Continuity of Care Document ---
:1980 Author Organization [facility] t Address [address] [place] [address] Care Team Providers Name Role Phone PCP, PATIENT DOES NOT HAVE A Primary Care Physician Karina Hoover MD, Rajeev K.H. Attending Clinician RAJEEV HOOVERHRosita Attending Clinician Unavailable DONELL WOODRUFF Attending Clinician Unavailable Vincent Patel Attending Clinician DONELL WOODRUFF Admitting Clinician Unavailable Vincent Patel Admitting Clinician Payers Payer Name Policy Type Policy Number Effective Date Expiration Date [facility] [id number] 2019 PPO 00:00:00 Problems Condition Condition Condition Status Onset Resolution Last Treating Co mments Source Name Details Category Date Date Treatment Clinician Date 36067, 71650, Diagnosis Active 2016-02-07 Me moria MORBID MORBID 6-17 21:59:00 l OBESITY OBESITY 00:00: [place] Active 00 01/06/2016 [facility] 22775, 50272, Diagnosis Active 2015-12-05 Me moria REFLUX REFLUX 5-11 11:03:00 l Active 00:00: [place] 11/30/2015 00 [facility] Morbid Morbid Problem Active 2016-02-05 Kwadwo jase obesity obesity 00:26:43 l (disorder) (disorder) Rohan tomlinsonann Active Problem 02/05/2016 [facility] ILLNESS, ILLNESS, Diagnosis Active 2016-02-07 Memoria UNSPECIFIE UNSPECIFIE 21:59:00 l D D Active [place] [facility] Acid Acid Problem Resolve 2016-02-05 Kwadwo jase reflux reflux d 00:26:43 l (finding) (finding) Herm johnny Resolved Problem 02/05/2016 [facility] Hypertensi Hypertens Problem Active 2016-02-05 Memoria ve kallie 00:26:43 l disorder, disorder, Herm johnny systemic systemic arterial arterial (disorder) (disorder) Active Problem 02/05/2016 [facility] C/O - low C/O - Problem Active 2016-02-05 M emoria back pain low back 00:26:43 l (context-d pain Andrae n ependent (context-d category) ependent category) Active Problem 02/05/2016 [facility] Degenerati Degenerat Problem Active 2016-02-05 Memoria on of ion of 00:26:43 l interverte interverte He rmann bral disc bral disc (disorder) (disorder) Active Problem 02/05/2016 [facility] Allergies, Adverse Reactions, Alerts Allergy Allergy Status Severity Reaction(s) Onset Inactive Treating Comm ents Source Name Type Date Date Clinician NO KNOWN Drug Active [facility] ALLERGIE [facility] ity [facility] Social History Social Habit Start Date Stop Date Quantity Comments Source Social History 2016-01-19 2016-01-19 [facility] ermann 16:22:14 16:22:14 Medications Ordered Filled Start Stop Current Ordering Indication Dosage Frequency Signature Comments Components Source Medication Medication Date Date Medication? Clinician (SIG) Name Name Lactated No 1,000 mL, Kwadwo jase Ringers 7-14 Rate: 80 l 1,000 mL 14:00: ml/hr, Infuse over: 12.5 hr, Route: IV, Dosing Weight 148.182 kg, Total Volume: 1,000, Start date: 02/02/16 9:00:00 CDT, Duration: 30 day, Stop date: 03/03/16 8:59:00 CDT Lactated No 1,000 mL, Kwadwo jase Ringers 7-14 Rate: 80 l 1,000 mL 14:00: ml/hr, [place] 00 Infuse over: 12.5 hr, Route: IV, Dosing Weight 148.182 kg, Total Volume: 1,000, Start date: 02/02/16 9:00:00 CDT, Duration: 30 day, Stop date: 03/03/16 8:59:00 CDT Lactated 2015-0 No 1,000 mL, Kwadwo jase Ringers - Rate: 80 l 1,000 mL 14:00: ml/hr, Infuse over: 12.5 hr, Route: IV, Dosing Weight 148.182 kg, Total Volume: 1,000, Start date: 02/02/16 9:00:00 CDT, Duration: 30 day, Stop date: 03/03/16 8:59:00 CDT Enoxaparin 2015-0 No Notes: Memor ia 7-14 (Same as: l 04:30: Lovenox) Enoxaparin 2015-0 No Notes: Memor ia 7-14 (Same as: l 04:30: Lovenox) Enoxaparin 2015-0 No Notes: Memor ia 7-14 (Same as: l 04:30: Lovenox) Ketorolac 2015-0 No 4 days Memor ia -13 l 20:00: MEDICATION [place] 00 WASTE Product Size: 30 mg Product Wasted: ___ mg Ketorolac 2015-0 No 4 days Memor ia - l 20:00: MEDICATION [place] 00 WASTE Product Size: 30 mg Product Wasted: ___ mg Ketorolac 2015-0 No 4 days Memor ia 01-31 l 20:00: MEDICATION [place] 00 WASTE Product Size: 30 mg Product Wasted: ___ mg Sodium 2015-0 No 25 mL, Memoria Chloride 01-31 Route: IV, l 0.9% IV 19:05: Start date: 02/01/16 14:05:00 CDT, Duration: 30 day, Stop date: 03/02/16 14:04:00 CDT, PRN Line Flush BD Normal 2015-0 No Notes: Memori a Saline 01-31 (Same as: l Flush 19:05: BD Posiflush) Sodium 2015-0 No 25 mL, Memoria Chloride 01-31 Route: IV, l 0.9% IV 19:05: Start date: 02/01/16 14:05:00 CDT, Duration: 30 day, Stop date: 03/02/16 14:04:00 CDT, PRN Line Flush BD Normal No Notes: Memori a Saline 7-13 (Same as: l Flush 19:05: BD [place] 00 Posiflush) Sodium 0 No 25 mL, Memoria Chloride 7- Route: IV, l 0.9% IV 19:05: Start [place] 00 date: 02/01/16 14:05:00 CDT, Duration: 30 day, Stop date: 03/02/16 14:04:00 CDT, PRN Line Flush BD Normal No Notes: Memori a Saline 7-13 (Same as: l Flush 19:05: BD [place] 00 Posiflush) BD Normal No Notes: Memori a Saline 7-13 (Same as: l Flush 19:04: BD [place] 00 Posiflush) BD Normal No Notes: Memori a Saline 7-13 (Same as: l Flush 19:04: BD [place] 00 Posiflush) BD Normal No Notes: Memori a Saline 7-13 (Same as: l Flush 19:04: BD [place] 00 Posiflush) Dilaudid No Notes: Memoria 7-13 (Same as: l 16:37: Dilaudid) [place] 00 Dilaudid No Notes: Memoria 7-13 (Same as: l 16:37: Dilaudid) [place] 00 Dilaudid No Notes: Memoria 7-13 (Same as: l 16:37: Dilaudid) [place] 00 Lactated No 1,000 mL, Kwadwo jase Ringers - Rate: 80 l Injection 16:34: ml/hr, Andrae n IV 1000 mL 00 Infuse over: 12.5 hr, Route: IV, Dosing Weight 148.182 kg, Total Volume: 1,000, Priority: STAT, Start date: 02/01/16 11:34:00 CDT, Duration: 30 day, Stop date: 03/02/16 11:33:00 CDT Calcium 20160 No 1,000 mL, Memor ia Chloride 7 Rate: 125 l 0.0014 16:34: ml/hr, [place] MEQ/ML / 00 Infuse Potassium over: 8 Chloride hr, Route: 0.004 IV, Dosing MEQ/ML / Weight Sodium 148.182 Chloride kg, Total 0.103 Volume: MEQ/ML / 1,000, Sodium Start Lactate date: 0.028 02/01/16 MEQ/ML 11:34:00 Injectable CDT, Stop Solution date: 02/02/16 9:00:00 CDT Promethazin No 12.5 mg, Me moria e 7-13 50 mL, l 16:34: Route: [place] 00 IVPB, Drug form: SOLN, Q4H, Dosing Weight 148.182, kg, PRN Nausea & Vomiting, Start date: 02/01/16 11:34:00 CDT, Duration: 30 day, Stop date: 03/02/16 11:33:00 CDT Ondansetron No Notes: Kwadwo jase 13 (Same as: l 16:34: Zofran) MEDICATION WASTE Product Size: 4 mg Product Wasted: ___ mg Lactated No 1,000 mL, Kwadwo jase Ringers [...] 11:33:00 CDT Ondansetron No Notes: Kwadwo jase -13 (Same as: l 16:34: Zofran) MEDICATION WASTE Product Size: 4 mg Product Wasted: ___ mg Lactated No 1,000 mL, Kwadwo jase Ringers 01-31 Rate: 80 l Injection 16:34: ml/hr, Andrae n IV 1000 mL 00 Infuse over: 12.5 hr, Route: IV, Dosing Weight 148.182 kg, Total Volume: 1,000, Priority: STAT, Start date: 02/01/16 11:34:00 CDT, Duration: 30 day, Stop date: 03/02/16 11:33:00 CDT Calcium No 1,000 mL, Memor ia Chloride 01-31 Rate: 125 l 0.0014 16:34: ml/hr, [place] MEQ/ML / 00 Infuse Potassium over: 8 Chloride hr, Route: 0.004 IV, Dosing MEQ/ML / Weight Sodium 148.182 Chloride kg, Total 0.103 Volume: MEQ/ML / 1,000, Sodium Start Lactate date: 0.028 02/01/16 MEQ/ML 11:34:00 Injectable CDT, Stop Solution date: 02/02/16 9:00:00 CDT Promethazin No 12.5 mg, Me moria e -13 50 mL, l 16:34: Route: [place] 00 IVPB, Drug form: SOLN, Q4H, Dosing Weight 148.182, kg, PRN Nausea & Vomiting, Start date: 02/01/16 11:34:00 CDT, Duration: 30 day, Stop date: 03/02/16 11:33:00 CDT Ondansetron No Notes: Kwadwo jase -13 (Same as: l 16:34: Zofran) [place] 00 MEDICATION WASTE Product Size: 4 mg Product Wasted: ___ mg Hydromorpho No Notes: Kwadwo jase ne 7-13 (Same as: l 16:33: Dilaudid) [place] 00 Naloxone 2015- No Notes: Memoria 7-13 Same as l 16:33: Narcan [place] 00 Meperidine No Notes: Memor ia 7-13 (Same As: l 16:33: Demerol) [place] 00 Flumazenil No Notes: Memor ia 7-13 (Same as: l 16:33: Romazicon) [place] 00 Diphenhydra No Notes: Kwadwo jase mine 7-13 (Same as: l 16:33: Benadryl) [place] 00 Ondansetron No Notes: Kwadwo jase 7-13 (Same as: l 16:33: Zofran) [place] 00 MEDICATION WASTE Product Size: 4 mg Product Wasted: ___ mg Labetalol No Notes: Memori a 7-13 (Same as: l 16:33: Normodyne, [place] 00 Trandate) Push over 2 minutes Give bolus over 2-3 minutes. Ketorolac 2015- No 4 days Memor ia 7-13 l 16:33: MEDICATION WASTE Product Size: 30 mg Product Wasted: ___ mg Morphine No Notes: Memoria 7-13 (Same l 16:33: as:MORPhin [place] 00 e Sulfate) Fentanyl No Notes: Memoria 7-13 (Same as: l 16:33: Sublimaze) [place] 00 Preservati ve free. Hydromorpho No Notes: Kwadwo jase ne 7-13 (Same as: l 16:33: Dilaudid) [place] 00 Naloxone No Notes: Memoria 7-13 Same as l 16:33: Narcan [place] 00 Meperidine No Notes: Memor ia 7-13 (Same As: l 16:33: Demerol) [place] 00 Flumazenil No Notes: Memor ia 7-13 (Same as: l 16:33: Romazicon) [place] 00 Diphenhydra No Notes: Kwadwo jase mine 7-13 (Same as: l 16:33: Benadryl) [place] 00 Ondansetron No Notes: Kwadwo jase 7-13 (Same as: l 16:33: Zofran) [place] 00 MEDICATION WASTE Product Size: 4 mg Product Wasted: ___ mg Labetalol No Notes: Memori a 7-13 (Same as: l 16:33: Normodyne, [place] 00 Trandate) Push over 2 minutes Give bolus over 2-3 minutes. Ketorolac 2016-0 No 4 days Memor ia 7-13 l 16:33: MEDICATION [place] 00 WASTE Product Size: 30 mg Product Wasted: ___ mg Morphine 2015- No Notes: Memoria 7-13 (Same l 16:33: as:MORPhin [place] 00 e Sulfate) Fentanyl No Notes: Memoria 7-13 (Same as: l 16:33: Sublimaze) Preservati ve free. Hydromorpho No Notes: Kwadwo [...] jase 7-13 (Same as: l 16:33: Zofran) [place] 00 MEDICATION WASTE Product Size: 4 mg [...] Notes: Memoria 7-13 (Same l 16:33: as:MORPhin [place] 00 e Sulfate) Fentanyl No Notes: Memoria 7-13 (Same as: l 16:33: Sublimaze) [place] Preservati ve free. Naloxone No Notes: Memoria 7-13 Same as l 12:44: Narcan [place] Flumazenil No Notes: Memor ia 7-13 (Same as: l 12:44: Romazicon) [place] Ondansetron No Notes: Kwadwo jase 7-13 (Same as: l 12:44: Zofran) [place] 00 MEDICATION WASTE Product Size: 4 mg Product Wasted: ___ mg Naloxone No Notes: Memoria 7-13 Same as l 12:44: Narcan [place] Flumazenil No Notes: Memor ia 7-13 (Same as: l 12:44: Romazicon) [place] Ondansetron No Notes: Kwadwo jase 7-13 (Same as: l 12:44: Zofran) [place] 00 MEDICATION WASTE Product Size: 4 mg Product Wasted: ___ mg Naloxone No Notes: Memoria 7-13 Same as l 12:44: Narcan [place] Flumazenil No Notes: Memor ia 7-13 (Same as: l 12:44: Romazicon) [place] Ondansetron No Notes: Kwadwo jase 7-13 (Same as: l 12:44: Zofran) [place] 00 MEDICATION WASTE Product Size: 4 mg Product Wasted: ___ mg Ancef No Notes: Memoria 7-13 Same as: l 05:00: Ancef [place] 00 Ancef No Notes: Memoria 7-13 Same as: l 05:00: Ancef [place] 00 Ancef No Notes: Memoria 7-13 Same [...] a 5-13 (Same as: l 13:11: ePHEDrine [place] 00 Sulfate) Diphenhydra No Notes: Kwadwo jase mine 5-13 (Same as: l 13:11: Benadryl) Flumazenil No Notes: Memor ia 5-13 (Same as: l 13:11: Romazicon) Sodium No 500 mL, Memoria Chloride -13 Rate: 125 l 0.154 13:11: ml/hr, [place] [...] 5-13 Rate: 125 l 0.154 13:11: ml/hr, [place] MEQ/ML 00 Infuse Injectable over: 4 Solution hr, Route: IV, Dosing Weight 148.182 kg, Total Volume: 500, Start date: 12/02/15 8:11:00 CDT, Duration: 30 day, Stop date: 01/01/16 8:10:00 CDT Labetalol No Notes: Memori a 5-13 (Same as: l 13:11: Normodyne, [place] 00 Trandate) Push over 2 minutes Give [...] 5-13 not give l 13:11: IV push. [place] (Same as: Phenergan) Naloxone No Notes: Memoria 5-13 Same as l 13:11: Narcan Ephedrine No Notes: Memori a 5-13 (Same as: l 13:11: ePHEDrine Sulfate) Diphenhydra No Notes: Kwadwo jase mine 5-13 (Same as: l 13:11: Benadryl) Flumazenil No Notes: Memor ia 5-13 (Same as: l 13:11: Romazicon) Sodium No 500 mL, Memoria Chloride 5-13 Rate: 125 l 0.154 13:11: ml/hr, [place] MEQ/ML 00 Infuse Injectable over: 4 Solution [...] tab, PO, l tablet 12:48: Daily, # [place] 00 30 tab, 0 Refill(s) HYDROcodone Yes 10 mg = 1 M emoria 10 mg oral 5-13 cap, PO, l capsule, 12:48: Q12H, 0 Andrae n extended 00 Refill(s) release carisoprodo Yes 350 mg = 1 Memoria l 350 mg 5-13 tab, PO, l oral tablet 12:48: BID, 0 Herm johnny 00 Refill(s) lisinopril 2016-0 Yes 20 mg = 1 Me moria 20 mg oral 5-13 tab, PO, l tablet 12:48: Daily, # [place] 00 30 tab, 0 Refill(s) HYDROcodone 2016-0 Yes 10 mg = 1 M emoria 10 mg oral 5-13 cap, PO, l capsule, 12:48: Q12H, 0 Andrae n extended 00 Refill(s) release carisoprodo 2016-0 Yes 350 mg = 1 Memoria l 350 mg 5-13 tab, PO, l oral tablet 12:48: BID, 0 Herm johnny 00 Refill(s) lisinopril 2016-0 Yes 20 mg = 1 Me moria 20 mg oral 5-13 tab, PO, l tablet 12:48: Daily, # [place] 00 30 tab, 0 Refill(s) HYDROcodone 2016-0 Yes 10 mg = 1 M emoria 10 mg oral 5-13 cap, PO, l capsule, 12:48: Q12H, 0 Andrae n extended 00 Refill(s) release Vital Signs Vital Name Observation Time Observation Value Comments Source Systolic (mm Hg) 2016-02-03 01:00:00 Kwadwo rial [place] Diastolic (mm Hg) 2016-02-03 01:00:00 Mem orial [place] Heart Rate 2016-02-03 01:00:00 [facility] [place] Temperature Oral (F) 2016-02-03 01:00:00 98 F [facility] [place] Respitory Rate 2016-02-03 01:00:00 Memori al [place] Temperature Oral (F) 2016-02-02 20:58:00 98.1 F Memorial [place] Respitory Rate 2016-02-02 20:58:00 Memori al [place] Systolic (mm Hg) 2016-02-02 20:58:00 Kwadwo rial [place] Diastolic (mm Hg) 2016-02-02 20:58:00 Mem orial [place] Heart Rate 2016-02-02 20:58:00 Memorial [place] Systolic (mm Hg) 2016-02-02 17:07:00 Kwadwo rial [place] Diastolic (mm Hg) 2016-02-02 17:07:00 Mem orial [place] Heart Rate 2016-02-02 17:07:00 [facility] [place] Respitory Rate 2016-02-02 17:07:00 Memori al [place] Temperature Oral (F) 2016-02-02 17:07:00 98.2 F [facility] [place] Height 2016-01-19 15:41:00 180.34 cm [facility] [place] Weight 2016-01-19 15:41:00 [facility] [place] BMI Calculated 2016-01-19 15:41:00 Memori al [place] Weight 2015-12-02 12:45:00 [facility] [place] Height 2015-12-02 12:45:00 182.88 cm [facility] [place] BMI Calculated 2015-12-02 12:45:00 Memori al [place] Procedures Procedure Date / Time Performed Performing Clinician [facility] e Epidural steroid Memorial Andrae n injection Incision and drainage of Memoria l [place] abscess of villa Encounters Start End Encounter Admission Attending Care Care Encounter Source Date/Time Date/Time Type Type Clinicians Facility Department ID 2020-04-14 2020-04-14 [id number] 00:00:00 00:00:00 Rajeev Lopez [id number] [place] [id number] Professio [id number] nal 059 Building 2020-01-15 2020-01-15 [id number] 15:30:00 15:30:00 RAJEEV [facility] 2019-12-24 2019-12-25 Outpatient X [facility]ERT [id number] [facility] 17:31:30 13:45:00 DONELL [facility] 2016-02-01 2016-02-03 Inpatient [facility] [id number] Memoria 16:34:00 02:41:00 r [place] 01 l [facility] 2016-02-01 2016-02-03 Inpatient [facility] [id number] Memoria 16:34:00 02:41:00 r [place] 01 [facility] 2016-02-01 2016-02-02 [id number] 11:34:00 21:41:00 Vincent Funk 2015-12-02 2015-12-02 Bedded [facility] [id number] Memoria 12:06:00 14:05:00 Outpatient r [place] 00 l [facility] 2015-12-02 2015-12-02 Bedded Luisa [facility] [id number] Memoria 12:06:00 14:05:00 Outpatient r [place] 00 l [facility] 2015-12-02 2015-12-02 Outpatient Primloraine, [facility] [id number] 07:06:00 09:05:00 Vincent 00 Good Results Test Description Test Time Test Comments Results Result Comments Source CHEM PANEL 2016-02-02 10:38:00 Test Item Value Reference Range Interpretation Comme nts eGFR (test code = eGFR) 118 [facility]2016-07-14 10:38:00 Test Item Value Reference Range Interpretation Comments eGFR (test code = eGFR) 118 [facility]2016-07-14 10:38:00 Test Item Value Reference Range Interpretation Comments Creatinine Lvl (test code = Creatinine 0.79 0.50-1.40 Lvl) [facility]2016-07-14 10:38:00 Test Item Value Reference Range Interpretation Comments Glucose Lvl (test code = Glucose Lvl) 105 70-99 [facility]2016-07-14 10:38:00 Test Item Value Reference Range Interpretation Comments Calcium Lvl (test code = Calcium Lvl) 8.7 8.5-10.5 [facility]2016-07-14 10:38:00 Test Item Value Reference Range Interpretation Comments CO2 (test code = CO2) 23 24-32 [facility]2016-07-14 10:38:00 Test Item Value Reference Range Interpretation Comments Chloride Lvl (test code = Chloride Lvl) 108 95-109 [facility]2016-07-14 10:38:00 Test Item Value Reference Range Interpretation Comments Potassium Lvl (test code = Potassium 4.0 3.5-5.1 Lvl) [facility]2016-07-14 10:38:00 Test Item Value Reference Range Interpretation Comments Sodium Lvl (test code = Sodium Lvl) 142 135-145 [facility]2016-07-14 10:38:00 Test Item Value Reference Range Interpretation Comments BUN (test code = BUN) 12 7-22 [facility]2016-07-14 10:38:00 Test Item Value Reference Range Interpretation Comments Creatinine Lvl (test code = Creatinine 0.79 0.50-1.40 Lvl) [facility]2016-07-14 10:38:00 Test Item Value Reference Range Interpretation Comments AGAP (test code = AGAP) 15.0 10.0-20.[address] [id number] 10:38:00 Test Item Value Reference Range Interpretation Comments MCH (test code = MCH) 27.2 pg 27.0-31.[address] [facility] H[id number] 10:38:00 Test Item Value Reference Range Interpretation Comments MCHC (test code = MCHC) 33.0 32.0-36.[address] [facility] Ho[id number] 10:38:00 Test Item Value Reference Range Interpretation Comments RDW (test code = RDW) 12.9 11.5-14.[address] [facility] HospitalK[id number] 10:38:00 Test Item Value Reference Range Interpretation Comments Hgb (test code = Hgb) 13.4 14.0-18.[address] [facility] Hospit[id number] 10:38:00 Test Item Value Reference Range Interpretation Comments Hct (test code = Hct) 40.7 42.0-54.[address] [facility] HospitalUdhdgyeWOXMJCZYQZ7466-62-30 10:38:00 Test Item Value Reference Range Interpretation Comments MCV (test code = MCV) 82.6 80.0-94.[address] [facility] HospitalWutoqdhAVQPHZEPGT3621-38-98 10:38:00 Test Item Value Reference Range Interpretation Comments Platelet (test code = Platelet) 250 133-[address] [facility] HospitalD[id number] 10:38:00 Test Item Value Reference Range Interpretation Comments MPV (test code = MPV) 7.8 7.4-10.[address] [facility] Hospit[id number] 10:38:00 Test Item Value Reference Range Interpretation Comments WBC (test code = WBC) 12.3 3.7-10.4 [facility]2016-07-14 10:38:00 Test Item Value Reference Range Interpretation Comments Glucose Lvl (test code = Glucose Lvl) 105 70-[address] [facility] H[id number] 10:38:00 Test Item Value Reference Range Interpretation Comments RBC (test code = RBC) 4.93 4.70-6.[address] [facility] Hospit[id number] 10:38:00 Test Item Value Reference Range Interpretation Comments Segs-Bands # (test code = Segs-Bands #) 9.6 1.5-8.[address] [facility] H[id number] 10:38:00 Test Item Value Reference Range Interpretation Comments Lymphocytes # (test code = Lymphocytes 1.9 1.0-5.5 #) [facility] HospitalGnzirjyMHUCJCEZPG8577-04-77 10:38:00 Test Item Value Reference Range Interpretation Comments Monocytes # (test code 0.5 See_Comment [Aut omated message] The = Monocytes #) system which generated this result tra nsmitted reference range : <=0.8. The reference r frandy was not used to int erpret this result as normal/abnormal . [facility] Ho[id number] 10:38:00 Test Item Value Reference Range Interpretation Comments Eosinophils # (test code 0.0 See_Comment [A utomated message] The = Eosinophils #) system wh h generated this result tra nsmitted reference range : <=0.5. The reference r frandy was not used to int erpret this result as normal/abnormal . [facility] H[id number] 10:38:00 Test Item Value Reference Range Interpretation Comments Basophils # (test code 0.2 See_Comment [Aut omated message] The = Basophils #) system which generated this result tra nsmitted reference range : <=0.2. The reference r frandy was not used to int erpret this result as normal/abnormal . [facility] Hospit[id number] 10:38:00 Test Item Value Reference Range Interpretation Comments Monocytes (test code = Monocytes) 4.3 2.0-12.[address] [facility] Hosp[id number] 10:38:00 Test Item Value Reference Range Interpretation Comments Eosinophils (test code = 0.0 See_Comment [A utomated message] The Eosinophils) system which ge nerated this result tra nsmitted reference range : <=4.0. The reference r frandy was not used to int erpret this result as normal/abnormal . [facility] H[id number] 10:38:00 Test Item Value Reference Range Interpretation Comments Basophils (test code = 1.8 See_Comment [Aut omated message] The Basophils) system which ge nerated this result tra nsmitted reference range : <=1.0. The reference r frandy was not used to int erpret this result as normal/abnormal . [facility] Hospit[id number] 10:38:00 Test Item Value Reference Range Interpretation Comments Segs (test code = Segs) 78.6 45.0-75.0 [facility]2016-07-14 10:38:00 Test Item Value Reference Range Interpretation Comments Calcium Lvl (test code = Calcium Lvl) 8.7 8.5-10.[address] [facility] [facility] Hospit[id number] 10:38:00 Test Item Value Reference Range Interpretation Comments Lymphocytes (test code = Lymphocytes) 15.3 20.0-40.[address] [facility] Hospit[id number] 10:38:00 Test Item Value Reference Range Interpretation Comments PTT (test code = PTT) 36.0 s 22.9-35.[address] [facility] [facility] H[id number] 10:38:00 Test Item Value Reference Range Interpretation Comments PT (test code = PT) 15.5 s 12.0-14.[address] [facility] Hospit[id number] 10:38:00 Test Item Value Reference Range Interpretation Comments INR (test code = INR) 1.20 0.85-1.17 [facility]2016-07-14 10:38:00 Test Item Value Reference Range Interpretation Comments CO2 (test code = CO2) 23 24-32 [facility]2016-07-14 10:38:00 Test Item Value Reference Range Interpretation Comments Chloride Lvl (test code = Chloride Lvl) 108 95-109 [facility]2016-07-14 10:38:00 Test Item Value Reference Range Interpretation Comments Potassium Lvl (test code = Potassium 4.0 3.5-5.1 Lvl) [facility]2016-07-14 10:38:00 Test Item Value Reference Range Interpretation Comments Sodium Lvl (test code = Sodium Lvl) 142 135-145 [facility]2016-07-14 10:38:00 Test Item Value Reference Range Interpretation Comments BUN (test code = BUN) 12 7-22 [facility]2016-07-14 10:38:00 Test Item Value Reference Range Interpretation Comments AGAP (test code = AGAP) 15.0 10.0-20.[address] H[id number] 10:38:00 Test Item Value Reference Range Interpretation Comments MCH (test code = MCH) 27.2 pg 27.0-31.[address] [facility] HospitalQjcgeauDDYSHSVJYZ6388-18-72 10:38:00 Test Item Value Reference Range Interpretation Comments MCHC (test code = MCHC) 33.0 32.0-36.[address] HospitalZcpjqpeIZWTZMOQTC5137-39-98 10:38:00 Test Item Value Reference Range Interpretation Comments RDW (test code = RDW) 12.9 11.5-14.[address] [facility] HospitalFjbmahwFGNMVWCLKY9452-33-28 10:38:00 Test Item Value Reference Range Interpretation Comments Hgb (test code = Hgb) 13.4 14.0-18.[address] [facility] HospitalHkyhowyMPHADZDCVA6818-46-16 10:38:00 Test Item Value Reference Range Interpretation Comments Hct (test code = Hct) 40.7 42.0-54.[address] [facility] HospitalPtkhtpaSPQJDJLRBW4201-24-28 10:38:00 Test Item Value Reference Range Interpretation Comments MCV (test code = MCV) 82.6 80.0-94.[address] [facility] HospitalIvcxyjgFECGQMTJHU4154-21-05 10:38:00 Test Item Value Reference Range Interpretation Comments Platelet (test code = Platelet) 250 133-[address] [facility] HospitalSrryieeAXHFNCPLWK9937-84-21 10:38:00 Test Item Value Reference Range Interpretation Comments MPV (test code = MPV) 7.8 7.4-10.[address] [facility] HospitalXeeqvwsWHGVSJHQCT8913-04-85 10:38:00 Test Item Value Reference Range Interpretation Comments WBC (test code = WBC) 12.3 3.7-10.[address] [facility] HospitalPxpsuygAUAKJZSMQR7980-57-08 10:38:00 Test Item Value Reference Range Interpretation Comments RBC (test code = RBC) 4.93 4.70-6.[address] HospitalFrngrerDLBGPXTEDT5560-47-30 10:38:00 Test Item Value Reference Range Interpretation Comments Segs-Bands # (test code = Segs-Bands #) 9.6 1.5-8.[address] [facility] HospitalKqoarwfLBFMEKJXNS1139-22-41 10:38:00 Test Item Value Reference Range Interpretation Comments Lymphocytes # (test code = Lymphocytes 1.9 1.0-5.5 #) [facility] HospitalIatgtzvNOQFAWLZPL6202-01-17 10:38:00 Test Item Value Reference Range Interpretation Comments Monocytes # (test code 0.5 See_Comment [Aut omated message] The = Monocytes #) system which generated this result tra nsmitted reference range : <=0.8. The reference r frandy was not used to int erpret this result as normal/abnormal . [facility] HospitalVsfkbjyEITXOKHCBJ2026-74-28 10:38:00 Test Item Value Reference Range Interpretation Comments Eosinophils # (test code 0.0 See_Comment [A utomated message] The = Eosinophils #) system wh h generated this result tra nsmitted reference range : <=0.5. The reference r frandy was not used to int erpret this result as normal/abnormal . [facility] HospitalPwzrszuBXSJXNYLWQ6427-37-24 10:38:00 Test Item Value Reference Range Interpretation Comments Basophils # (test code 0.2 See_Comment [Aut omated message] The = Basophils #) system which generated this result tra nsmitted reference range : <=0.2. The reference r frandy was not used to int erpret this result as normal/abnormal . [facility] HospitalEjqdainOXNZSIAMFA5352-88-47 10:38:00 Test Item Value Reference Range Interpretation Comments Monocytes (test code = Monocytes) 4.3 2.0-12.[address] [facility] HospitalFtewvbzJOPVGKFONU0504-98-85 10:38:00 Test Item Value Reference Range Interpretation Comments Eosinophils (test code = 0.0 See_Comment [A utomated message] The Eosinophils) system which ge nerated this result tra nsmitted reference range : <=4.0. The reference r frandy was not used to int erpret this result as normal/abnormal . [facility] HospitalSpchmyoQPYBCOUAEP0546-22-04 10:38:00 Test Item Value Reference Range Interpretation Comments Basophils (test code = 1.8 See_Comment [Aut omated message] The Basophils) system which ge nerated this result tra nsmitted reference range : <=1.0. The reference r frandy was not used to int erpret this result as normal/abnormal . [facility] HospitalGrojifwOBIUXOHFIX6851-88-97 10:38:00 Test Item Value Reference Range Interpretation Comments Segs (test code = Segs) 78.6 45.0-75.[address] [facility] HospitalGxzghdbBFMPETIZOZ4569-75-20 10:38:00 Test Item Value Reference Range Interpretation Comments Lymphocytes (test code = Lymphocytes) 15.3 20.0-40.[address] [facility] HospitalHxcggbuTOTPJLTDTT1301-55-70 10:38:00 Test Item Value Reference Range Interpretation Comments PTT (test code = PTT) 36.0 s 22.9-35.[address] HospitalQalajytVTHAMCLMNM8205-42-89 10:38:00 Test Item Value Reference Range Interpretation Comments PT (test code = PT) 15.5 s 12.0-14.[address] [facility] HospitalUdvybxcHKFLUEHSAE0993-88-73 10:38:00 Test Item Value Reference Range Interpretation Comments INR (test code = INR) 1.20 0.85-1.17 [facility]2016-07-14 10:38:00 Test Item Value Reference Range Interpretation Comments eGFR (test code = eGFR) 118 [facility]2016-07-14 10:38:00 Test Item Value Reference Range Interpretation Comments Creatinine Lvl (test code = Creatinine 0.79 0.50-1.40 Lvl) [facility]2016-07-14 10:38:00 Test Item Value Reference Range Interpretation Comments Glucose Lvl (test code = Glucose Lvl) 105 70-99 [facility]2016-07-14 10:38:00 Test Item Value Reference Range Interpretation Comments Calcium Lvl (test code = Calcium Lvl) 8.7 8.5-10.5 [facility]2016-07-14 10:38:00 Test Item Value Reference Range Interpretation Comments CO2 (test code = CO2) 23 24-32 [facility]2016-07-14 10:38:00 Test Item Value Reference Range Interpretation Comments Chloride Lvl (test code = Chloride Lvl) 108 95-109 [facility]2016-07-14 10:38:00 Test Item Value Reference Range Interpretation Comments Potassium Lvl (test code = Potassium 4.0 3.5-5.1 Lvl) [facility]2016-07-14 10:38:00 Test Item Value Reference Range Interpretation Comments Sodium Lvl (test code = Sodium Lvl) 142 135-145 [facility]2016-07-14 10:38:00 Test Item Value Reference Range Interpretation Comments BUN (test code = BUN) 12 7-22 [facility]2016-07-14 10:38:00 Test Item Value Reference Range Interpretation Comments AGAP (test code = AGAP) 15.0 10.0-20.[address] [facility] HospitalKyyfuqxUZXJBALUYU6516-41-10 10:38:00 Test Item Value Reference Range Interpretation Comments MCH (test code = MCH) 27.2 pg 27.0-31.[address] [facility] HospitalPuozwpyCCXHHEWJSC6303-71-39 10:38:00 Test Item Value Reference Range Interpretation Comments MCHC (test code = MCHC) 33.0 32.0-36.[address] HospitalTuylvwgVQPSXCPAWR4696-18-29 10:38:00 Test Item Value Reference Range Interpretation Comments RDW (test code = RDW) 12.9 11.5-14.[address] [facility] HospitalEfssvjtXCQZDEKUOU6372-99-86 10:38:00 Test Item Value Reference Range Interpretation Comments Hgb (test code = Hgb) 13.4 14.0-18.[address] [facility] HospitalAegishbMBHOZVQAZK7619-91-80 10:38:00 Test Item Value Reference Range Interpretation Comments Hct (test code = Hct) 40.7 42.0-54.[address] HospitalZijsfmvEQKJHXJGQS9407-45-84 10:38:00 Test Item Value Reference Range Interpretation Comments MCV (test code = MCV) 82.6 80.0-94.[address] HospitalZvmyeffMIPMXTMHTN2472-81-62 10:38:00 Test Item Value Reference Range Interpretation Comments Platelet (test code = Platelet) 250 133-[address] [facility] HospitalXutqpnnGMJCNLRZVL4740-26-27 10:38:00 Test Item Value Reference Range Interpretation Comments MPV (test code = MPV) 7.8 7.4-10.[address] HospitalQeafwnvNPYSQUPMBY6416-95-33 10:38:00 Test Item Value Reference Range Interpretation Comments WBC (test code = WBC) 12.3 3.7-10.[address] HospitalXjnjiriRTJHCMGJAK6021-37-99 10:38:00 Test Item Value Reference Range Interpretation Comments RBC (test code = RBC) 4.93 4.70-6.[address] [facility] HospitalShfeajlVRAQDGDTMK9489-88-73 10:38:00 Test Item Value Reference Range Interpretation Comments Segs-Bands # (test code = Segs-Bands #) 9.6 1.5-8.[address] HospitalHqzvfpbVENNIKWBOY3637-52-43 10:38:00 Test Item Value Reference Range Interpretation Comments Lymphocytes # (test code = Lymphocytes 1.9 1.0-5.5 #) [facility] HospitalZzywyoqPQRVXJCCMX9859-86-97 10:38:00 Test Item Value Reference Range Interpretation Comments Monocytes # (test code 0.5 See_Comment [Aut omated message] The = Monocytes #) system which generated this result tra nsmitted reference range : <=0.8. The reference r frandy was not used to int erpret this result as normal/abnormal . [facility] HospitalVijghyuLMETYOBIXH6187-42-52 10:38:00 Test Item Value Reference Range Interpretation Comments Eosinophils # (test code 0.0 See_Comment [A utomated message] The = Eosinophils #) system whic h generated this result tra nsmitted reference range : <=0.5. The reference r frandy was not used to int erpret this result as normal/abnormal . [facility] HospitalVuumqjyVFLHCPEBGG1124-64-33 10:38:00 Test Item Value Reference Range Interpretation Comments Basophils # (test code 0.2 See_Comment [Aut omated message] The = Basophils #) system which generated this result tra nsmitted reference range : <=0.2. The reference r frnady was not used to int erpret this result as normal/abnormal . [facility] HospitalEpexhbxPCHWRVYPWM5917-02-31 10:38:00 Test Item Value Reference Range Interpretation Comments Monocytes (test code = Monocytes) 4.3 2.0-12.[address] [facility] HospitalDhxvhgrXJSEGHVJMQ9677-68-08 10:38:00 Test Item Value Reference Range Interpretation Comments Eosinophils (test code = 0.0 See_Comment [A utomated message] The Eosinophils) system which ge nerated this result tra nsmitted reference range : <=4.0. The reference r frandy was not used to int erpret this result as normal/abnormal . [facility] HospitalUtsceoxWPABGOHWOK2986-24-31 10:38:00 Test Item Value Reference Range Interpretation Comments Basophils (test code = 1.8 See_Comment [Aut omated message] The Basophils) system which ge nerated this result tra nsmitted reference range : <=1.0. The reference r frandy was not used to int erpret this result as normal/abnormal . [facility]WcfkkneAQMUDFKLHH7345-81-06 10:38:00 Test Item Value Reference Range Interpretation Comments Segs (test code = Segs) 78.6 45.0-75.[address] [facility] HospitalLfgtxocCJNLFAGVNN3753-14-50 10:38:00 Test Item Value Reference Range Interpretation Comments Lymphocytes (test code = Lymphocytes) 15.3 20.0-40.[address] HospitalQhuytbfAPIBRRNVWJ8382-98-51 10:38:00 Test Item Value Reference Range Interpretation Comments PTT (test code = PTT) 36.0 s 22.9-35.8 [facility]xsusaNHPQGQUQLX3742-98-89 10:38:00 Test Item Value Reference Range Interpretation Comments PT (test code = PT) 15.5 s 12.0-14.7 [facility] HospitalRjcfbnzFRUNIGYTAE6636-55-09 10:38:00 Test Item Value Reference Range Interpretation Comments INR (test code = INR) 1.20 0.85-1.17 [facility] [place] [id number] 13:22:00 Test Item Value Reference Range Interpretation Comments ABO/Rh (test code = ABO/Rh) A [facility] [id number] 13:22:00 Test Item Value Reference Range Interpretation Comments Antibody Scrn (test Negative (02/01/16 8:22 code = Antibody Scrn) AM) [facility] [place] [id number] 13:22:00 Test Item Value Reference Range Interpretation Comments ABO/Rh (test code = ABO/Rh) A POS [facility] [id number] 13:22:00 Test Item Value Reference Range Interpretation Comments Antibody Scrn (test Negative (02/01/16 8:22 code = Antibody Scrn) AM) [facility] CampusWhereInFair [id number] 13:22:00 Test Item Value Reference Range Interpretation Comments ABO/Rh (test code = ABO/Rh) A [facility] [id number] 13:22:00 Test Item Value Reference Range Interpretation Comments Antibody Scrn (test Negative (02/01/16 8:22 code = Antibody Scrn) AM) [facility] CampusPenangoE[facility] [id number] 16:50:00 Test Item Value Reference Range Interpretation Comments Alk Phos (test code = Alk Phos) 137 39-136 [facility]2016-06-30 16:50:00 Test Item Value Reference Range Interpretation Comments Total Protein (test code = Total 8.0 6.4-8.4 Protein) [facility]2016-06-30 16:50:00 Test Item Value Reference Range Interpretation Comments B/C Ratio (test code = B/C Ratio) 17 6-25 [facility]2016-06-30 16:50:00 Test Item Value Reference Range Interpretation Comments AGAP (test code = AGAP) 12.2 10.0-20.0 [facility]2016-06-30 16:50:00 Test Item Value Reference Range Interpretation Comments A/G Ratio (test code = A/G Ratio) 1.0 0.7-1.6 [facility]2016-06-30 16:50:00 Test Item Value Reference Range Interpretation Comments Globulin (test code = Globulin) 4.1 2.0-4.[address] HospitalLwjstrjBFYLCAENMQ8519-04-81 16:50:00 Test Item Value Reference Range Interpretation Comments PTT (test code = PTT) 38.8 s 22.9-35.[address] [facility] HospitalGshyyixCIMDQGHHDE0646-58-58 16:50:00 Test Item Value Reference Range Interpretation Comments PT (test code = PT) 14.1 s 12.0-14.[address] [facility] HospitalNrrvqhjVZFXYZFIQB3563-29-64 16:50:00 Test Item Value Reference Range Interpretation Comments INR (test code = INR) 1.06 0.85-1.[address] [facility] HospitalMvyrpmdXIUPLKXHIF9897-76-97 16:50:00 Test Item Value Reference Range Interpretation Comments RDW (test code = RDW) 12.9 11.5-14.[address] HospitalQgkikogEKOXVWXTNP0394-64-60 16:50:00 Test Item Value Reference Range Interpretation Comments Platelet (test code = Platelet) 277 133-[address] [facility] HospitalOwecactESPSSNXAGP0819-83-77 16:50:00 Test Item Value Reference Range Interpretation Comments MCHC (test code = MCHC) 33.0 32.0-36.[address] HospitalTsvmndoFXARUGYKTO8177-79-51 16:50:00 Test Item Value Reference Range Interpretation Comments MPV (test code = MPV) 7.1 7.4-10.[address] HospitalRethzlhCADKUMSXBC0612-13-63 16:50:00 Test Item Value Reference Range Interpretation Comments MCV (test code = MCV) 83.0 80.0-94.[address] HospitalVnfnbrjDUZGEKJWPS4593-21-28 16:50:00 Test Item Value Reference Range Interpretation Comments MCH (test code = MCH) 27.4 pg 27.0-31.[address] HospitalZdcmnmpVWAAENWBOE5207-74-38 16:50:00 Test Item Value Reference Range Interpretation Comments Hct (test code = Hct) 44.5 42.0-54.[address] HospitalKbbdhnsJSXCHNRKCF9144-53-31 16:50:00 Test Item Value Reference Range Interpretation Comments Hgb (test code = Hgb) 14.7 14.0-18.[address] HospitalRtjszvaTMSXLQWTYH0264-09-33 16:50:00 Test Item Value Reference Range Interpretation Comments RBC (test code = RBC) 5.36 4.70-6.[address] [facility] HospitalYxvecdnEMOBKZBKMW1265-70-30 16:50:00 Test Item Value Reference Range Interpretation Comments WBC (test code = WBC) 8.3 3.7-10.[address] HospitalMvqvfqsHDZMTGJPYA3020-99-02 16:50:00 Test Item Value Reference Range Interpretation Comments Monocytes # (test code 0.4 See_Comment [Aut omated message] The = Monocytes #) system which generated this result tra nsmitted reference range : <=0.8. The reference r frandy was not used to int erpret this result as normal/abnormal . [facility] HospitalDnrjypwZPDWSKQAUE2115-21-37 16:50:00 Test Item Value Reference Range Interpretation Comments Basophils # (test code 0.0 See_Comment [Aut omated message] The = Basophils #) system which generated this result tra nsmitted reference range : <=0.2. The reference r frandy was not used to int erpret this result as normal/abnormal . [facility] HospitalUzgrlsxHIXXEDTZCU3886-14-15 16:50:00 Test Item Value Reference Range Interpretation Comments Eosinophils (test code = 0.7 See_Comment [A utomated message] The Eosinophils) system which ge nerated this result tra nsmitted reference range : <=4.0. The reference r frandy was not used to int erpret this result as normal/abnormal . [facility] HospitalEwtkaryCGVDIURUJG3525-87-05 16:50:00 Test Item Value Reference Range Interpretation Comments Basophils (test code = 0.5 See_Comment [Aut omated message] The Basophils) system which ge nerated this result tra nsmitted reference range : <=1.0. The reference r frandy was not used to int erpret this result as normal/abnormal . [facility] HospitalZtymhncYRWLOWTTGV3901-14-86 16:50:00 Test Item Value Reference Range Interpretation Comments Eosinophils # (test code 0.1 See_Comment [A utomated message] The = Eosinophils #) system whic h generated this result tra nsmitted reference range : <=0.5. The reference r frandy was not used to int erpret this result as normal/abnormal . [facility] HospitalOvdisqxGGRQQBJTCC6101-78-46 16:50:00 Test Item Value Reference Range Interpretation Comments Lymphocytes # (test code = Lymphocytes 2.4 1.0-5.5 #) [facility] HospitalHaqluxdZUYSSYLNVF2504-60-08 16:50:00 Test Item Value Reference Range Interpretation Comments Segs-Bands # (test code = Segs-Bands #) 5.3 1.5-8.1 [facility] HospitalRwoiunyBCUTTYDHEQ6167-18-59 16:50:00 Test Item Value Reference Range Interpretation Comments Monocytes (test code = Monocytes) 4.8 2.0-12.0 [facility] HospitalArhanjcNQRHRUBHIE4136-06-69 16:50:00 Test Item Value Reference Range Interpretation Comments Lymphocytes (test code = Lymphocytes) 29.4 20.0-40.0 [facility] HospitalIzyhdspAWWHZVOHFB4117-12-92 16:50:00 Test Item Value Reference Range Interpretation Comments Segs (test code = Segs) 64.6 45.0-75.0 [facility] HospitalPARATHYROID YVHZOEZ5692-80-72 16:50:00 Test Item Value Reference Range Interpretation Comments PTH Intact (test code = PTH Intact) 59.5 11.1-79.5 [facility] HospitalSPECIAL NYHBYCVGK2479-31-13 16:50:00 Test Item Value Reference Range Interpretation Comments Hgb A1C (test code = Hgb A1C) 5.5 [facility] HospitalCHEM [id number] 16:50:00 Test Item Value Reference Range Interpretation Comments Vitamin D, 25-OH, Total (test code = 24 30-100 Vitamin D, 25-OH, Total) [facility] HospitalCHEM EDPAB2835-92-12 16:50:00 Test Item Value Reference Range Interpretation Comments ALT (test code = ALT) 35 See_Comment [Auto mated message] The system which ge nerated this result transmit elpidio reference range : <=65. The reference range was not used to interpr et this result as azra l/abnormal. [facility]2016-06-30 16:50:00 Test Item Value Reference Range Interpretation Comments CO2 (test code = CO2) 30 24-32 [facility]2016-06-30 16:50:00 Test Item Value Reference Range Interpretation Comments Albumin Lvl (test code = Albumin Lvl) 3.9 3.5-5.0 [facility]2016-06-30 16:50:00 Test Item Value Reference Range Interpretation Comments AST (test code = AST) 23 See_Comment [Auto mated message] The system which ge nerated this result transmit elpidio reference range : <=37. The reference range was not used to interpr et this result as azra l/abnormal. [facility]2016-06-30 16:50:00 Test Item Value Reference Range Interpretation Comments eGFR (test code = eGFR) 104 [facility]2016-06-30 16:50:00 Test Item Value Reference Range Interpretation Comments Creatinine Lvl (test code = Creatinine 0.96 0.50-1.40 Lvl) [facility]2016-06-30 16:50:00 Test Item Value Reference Range Interpretation Comments BUN (test code = BUN) 16 7-22 [facility]2016-06-30 16:50:00 Test Item Value Reference Range Interpretation Comments Glucose Lvl (test code = Glucose Lvl) 103 70-99 [facility]2016-06-30 16:50:00 Test Item Value Reference Range Interpretation Comments Sodium Lvl (test code = Sodium Lvl) 140 135-145 [facility]2016-06-30 16:50:00 Test Item Value Reference Range Interpretation Comments Potassium Lvl (test code = Potassium 4.2 3.5-5.1 Lvl) [facility]2016-06-30 16:50:00 Test Item Value Reference Range Interpretation Comments Chloride Lvl (test code = Chloride Lvl) 102 95-109 [facility]2016-06-30 16:50:00 Test Item Value Reference Range Interpretation Comments Calcium Lvl (test code = Calcium Lvl) 9.4 8.5-10.5 [facility]2016-06-30 16:50:00 Test Item Value Reference Range Interpretation Comments Bili Total (test code = Bili Total) 0.8 0.2-1.3 [facility]2016-06-30 16:50:00 Test Item Value Reference Range Interpretation Comments Alk Phos (test code = Alk Phos) 137 39-136 [facility]2016-06-30 16:50:00 Test Item Value Reference Range Interpretation Comments Total Protein (test code = Total 8.0 6.4-8.4 Protein) [facility]2016-06-30 16:50:00 Test Item Value Reference Range Interpretation Comments B/C Ratio (test code = B/C Ratio) 17 6-25 [facility]2016-06-30 16:50:00 Test Item Value Reference Range Interpretation Comments AGAP (test code = AGAP) 12.2 10.0-20.0 [facility]2016-06-30 16:50:00 Test Item Value Reference Range Interpretation Comments A/G Ratio (test code = A/G Ratio) 1.0 0.7-1.6 [facility]2016-06-30 16:50:00 Test Item Value Reference Range Interpretation Comments Globulin (test code = Globulin) 4.1 2.0-4.[address] [facility] HospitalLbwkpxxNTINTBMDKM5641-16-84 16:50:00 Test Item Value Reference Range Interpretation Comments PTT (test code = PTT) 38.8 s 22.9-35.[address] [facility] HospitalNkajhtmDYAVXQOSEO7196-32-71 16:50:00 Test Item Value Reference Range Interpretation Comments PT (test code = PT) 14.1 s 12.0-14.[address] [facility] HospitalSbodteuYXJJEHSWQZ8670-52-04 16:50:00 Test Item Value Reference Range Interpretation Comments INR (test code = INR) 1.06 0.85-1.[address] [facility] HospitalNlpkaqbAWVTWCVPVK9812-57-69 16:50:00 Test Item Value Reference Range Interpretation Comments RDW (test code = RDW) 12.9 11.5-14.[address] [facility] HospitalNdlqwmfOXNADAGIAW2454-40-71 16:50:00 Test Item Value Reference Range Interpretation Comments Platelet (test code = Platelet) 277 133-[address] [facility] HospitalCinnoyrIBRPCHUVYO1217-27-94 16:50:00 Test Item Value Reference Range Interpretation Comments MCHC (test code = MCHC) 33.0 32.0-36.[address] [facility] HospitalZkvbvcbBMVRTDKPBA5471-00-50 16:50:00 Test Item Value Reference Range Interpretation Comments MPV (test code = MPV) 7.1 7.4-10.[address] [facility] HospitalVgejmlkEPCCFYMWJQ0932-72-40 16:50:00 Test Item Value Reference Range Interpretation Comments MCV (test code = MCV) 83.0 80.0-94.[address] [facility] HospitalBzwvessMLRUWYZZTL9075-78-18 16:50:00 Test Item Value Reference Range Interpretation Comments MCH (test code = MCH) 27.4 pg 27.0-31.[address] [facility] HospitalMqpcphfFBHGELHKJX8560-47-25 16:50:00 Test Item Value Reference Range Interpretation Comments Hct (test code = Hct) 44.5 42.0-54.[address] [facility] HospitalWkzdedcVLGNIMHRWA7248-22-19 16:50:00 Test Item Value Reference Range Interpretation Comments Hgb (test code = Hgb) 14.7 14.0-18.[address] [facility] H[id number] 16:50:00 Test Item Value Reference Range Interpretation Comments RBC (test code = RBC) 5.36 4.70-6.[address] [facility] Hospit[id number] 16:50:00 Test Item Value Reference Range Interpretation Comments WBC (test code = WBC) 8.3 3.7-10.[address] [facility] HospitalItcclzcLVGURRTTFJ3878-79-67 16:50:00 Test Item Value Reference Range Interpretation Comments Monocytes # (test code 0.4 See_Comment [Aut omated message] The = Monocytes #) system which generated this result tra nsmitted reference range : <=0.8. The reference r frandy was not used to int erpret this result as normal/abnormal . [facility] Hospit[id number] 16:50:00 Test Item Value Reference Range Interpretation Comments Basophils # (test code 0.0 See_Comment [Aut omated message] The = Basophils #) system which generated this result tra nsmitted reference range : <=0.2. The reference r frandy was not used to int erpret this result as normal/abnormal . [facility] HospitalWrpufpkHHFYYSSRII8916-43-09 16:50:00 Test Item Value Reference Range Interpretation Comments Eosinophils (test code = 0.7 See_Comment [A utomated message] The Eosinophils) system which ge nerated this result tra nsmitted reference range : <=4.0. The reference r frandy was not used to int erpret this result as normal/abnormal . [facility] HospitalKlnhhyuPMTTQXWKAE5346-42-03 16:50:00 Test Item Value Reference Range Interpretation Comments Basophils (test code = 0.5 See_Comment [Aut omated message] The Basophils) system which ge nerated this result tra nsmitted reference range : <=1.0. The reference r frandy was not used to int erpret this result as normal/abnormal . [facility] HospitalMashdfeDLRCIYYMKG8588-19-12 16:50:00 Test Item Value Reference Range Interpretation Comments Eosinophils # (test code 0.1 See_Comment [A utomated message] The = Eosinophils #) system whic h generated this result tra nsmitted reference range : <=0.5. The reference r frandy was not used to int erpret this result as normal/abnormal . [facility] HospitalMnpdtkfQMHCCWBOIS1113-87-55 16:50:00 Test Item Value Reference Range Interpretation Comments Lymphocytes # (test code = Lymphocytes 2.4 1.0-5.5 #) [facility] HospitalShkrtcmAGQJZAOJTS1756-06-81 16:50:00 Test Item Value Reference Range Interpretation Comments Segs-Bands # (test code = Segs-Bands #) 5.3 1.5-8.[address] HospitalVapiwxlKWUNZSODDO6136-13-06 16:50:00 Test Item Value Reference Range Interpretation Comments Monocytes (test code = Monocytes) 4.8 2.0-12.[address] HospitalIlzsobwERJDZUZZUA6049-37-47 16:50:00 Test Item Value Reference Range Interpretation Comments Lymphocytes (test code = Lymphocytes) 29.4 20.0-40.[address] HospitalAsrmcisCQAWBSMKSZ2317-90-67 16:50:00 Test Item Value Reference Range Interpretation Comments Segs (test code = Segs) 64.6 45.0-75.0 [facility] [id number] 16:50:00 Test Item Value Reference Range Interpretation Comments PTH Intact (test code = PTH Intact) 59.5 11.1-79.5 [facility] [id number] 16:50:00 Test Item Value Reference Range Interpretation Comments Hgb A1C (test code = Hgb A1C) 5.5 [facility]2016-06-30 16:50:00 Test Item Value Reference Range Interpretation Comments Vitamin D, 25-OH, Total (test code = 24 30-100 Vitamin D, 25-OH, Total) [facility]2016-06-30 16:50:00 Test Item Value Reference Range Interpretation Comments ALT (test code = ALT) 35 See_Comment [Auto mated message] The system which ge nerated this result transmit elpidio reference range : <=65. The reference range was not used to interpr et this result as azra l/abnormal. [facility]2016-06-30 16:50:00 Test Item Value Reference Range Interpretation Comments CO2 (test code = CO2) 30 24-32 [facility]2016-06-30 16:50:00 Test Item Value Reference Range Interpretation Comments Albumin Lvl (test code = Albumin Lvl) 3.9 3.5-5.0 [facility]2016-06-30 16:50:00 Test Item Value Reference Range Interpretation Comments AST (test code = AST) 23 See_Comment [Auto mated message] The system which ge nerated this result transmit elpidio reference range : <=37. The reference range was not used to interpr et this result as azra l/abnormal. [facility]2016-06-30 16:50:00 Test Item Value Reference Range Interpretation Comments eGFR (test code = eGFR) 104 [facility]2016-06-30 16:50:00 Test Item Value Reference Range Interpretation Comments Creatinine Lvl (test code = Creatinine 0.96 0.50-1.40 Lvl) [facility]2016-06-30 16:50:00 Test Item Value Reference Range Interpretation Comments BUN (test code = BUN) 16 7-22 [facility]2016-06-30 16:50:00 Test Item Value Reference Range Interpretation Comments Glucose Lvl (test code = Glucose Lvl) 103 70-99 [facility]2016-06-30 16:50:00 Test Item Value Reference Range Interpretation Comments Sodium Lvl (test code = Sodium Lvl) 140 135-145 [facility]2016-06-30 16:50:00 Test Item Value Reference Range Interpretation Comments Potassium Lvl (test code = Potassium 4.2 3.5-5.1 Lvl) [facility]2016-06-30 16:50:00 Test Item Value Reference Range Interpretation Comments Chloride Lvl (test code = Chloride Lvl) 102 95-109 [facility]2016-06-30 16:50:00 Test Item Value Reference Range Interpretation Comments Calcium Lvl (test code = Calcium Lvl) 9.4 8.5-10.5 [facility]2016-06-30 16:50:00 Test Item Value Reference Range Interpretation Comments Bili Total (test code = Bili Total) 0.8 0.2-1.3 [facility]2016-06-30 16:50:00 Test Item Value Reference Range Interpretation Comments Bili Total (test code = Bili Total) 0.8 0.2-1.3 [facility]2016-06-30 16:50:00 Test Item Value Reference Range Interpretation Comments Alk Phos (test code = Alk Phos) 137 39-136 [facility]2016-06-30 16:50:00 Test Item Value Reference Range Interpretation Comments Total Protein (test code = Total 8.0 6.4-8.4 Protein) [facility]2016-06-30 16:50:00 Test Item Value Reference Range Interpretation Comments B/C Ratio (test code = B/C Ratio) 17 6-25 [facility]2016-06-30 16:50:00 Test Item Value Reference Range Interpretation Comments AGAP (test code = AGAP) 12.2 10.0-20.0 [facility]2016-06-30 16:50:00 Test Item Value Reference Range Interpretation Comments A/G Ratio (test code = A/G Ratio) 1.0 0.7-1.6 [facility]2016-06-30 16:50:00 Test Item Value Reference Range Interpretation Comments Globulin (test code = Globulin) 4.1 2.0-4.[address] Hospit[id number] 16:50:00 Test Item Value Reference Range Interpretation Comments PTT (test code = PTT) 38.8 s 22.9-35.[address] HospitalYtqtrneMBYYMJUXOR8877-20-87 16:50:00 Test Item Value Reference Range Interpretation Comments PT (test code = PT) 14.1 s 12.0-14.[address] [facility] [facility] HospitalClnreqfYRBMXHAEST8124-46-56 16:50:00 Test Item Value Reference Range Interpretation Comments INR (test code = INR) 1.06 0.85-1.[address] [facility] HospitalZinyfcrCGGVRCOIUV7350-89-16 16:50:00 Test Item Value Reference Range Interpretation Comments RDW (test code = RDW) 12.9 11.5-14.[address] [facility] HospitalIygubvbKDQLCHHCCV8990-60-78 16:50:00 Test Item Value Reference Range Interpretation Comments Platelet (test code = Platelet) 277 133-[address] [facility] HospitalCgeujqeLVLKRUKSOQ5560-69-12 16:50:00 Test Item Value Reference Range Interpretation Comments MCHC (test code = MCHC) 33.0 32.0-36.[address] HospitalZanwcoyMKXOIHCENF8332-60-24 16:50:00 Test Item Value Reference Range Interpretation Comments MPV (test code = MPV) 7.1 7.4-10.[address] HospitalAxwgpwoCMDLNAUJEZ2530-85-03 16:50:00 Test Item Value Reference Range Interpretation Comments MCV (test code = MCV) 83.0 80.0-94.[address] HospitalZpzevxkXEGUNAVVBH6068-82-13 16:50:00 Test Item Value Reference Range Interpretation Comments MCH (test code = MCH) 27.4 pg 27.0-31.[address] [facility] HospitalWtknmmxBSCDZFIWAR8495-36-01 16:50:00 Test Item Value Reference Range Interpretation Comments Hct (test code = Hct) 44.5 42.0-54.[address] HospitalUhqdbkcTVZFZQNOSH6674-97-04 16:50:00 Test Item Value Reference Range Interpretation Comments Hgb (test code = Hgb) 14.7 14.0-18.[address] [facility] HospitalKumfjlyUGFHMMHMGS2495-66-27 16:50:00 Test Item Value Reference Range Interpretation Comments RBC (test code = RBC) 5.36 4.70-6.[address] [facility] [facility] HospitalXjglyacFHGFLFUYYL1529-11-22 16:50:00 Test Item Value Reference Range Interpretation Comments WBC (test code = WBC) 8.3 3.7-10.[address] [facility] HospitalGcbupfoXFKOISTRHF1022-63-99 16:50:00 Test Item Value Reference Range Interpretation Comments Monocytes # (test code 0.4 See_Comment [Aut omated message] The = Monocytes #) system which generated this result tra nsmitted reference range : <=0.8. The reference r frandy was not used to int erpret this result as normal/abnormal . [facility] HospitalQzzxwinTHUMJKTWDY3304-29-57 16:50:00 Test Item Value Reference Range Interpretation Comments Basophils # (test code 0.0 See_Comment [Aut omated message] The = Basophils #) system which generated this result tra nsmitted reference range : <=0.2. The reference r frandy was not used to int erpret this result as normal/abnormal . [facility] HospitalFrlmwkgDBVRBFNHTL5690-31-08 16:50:00 Test Item Value Reference Range Interpretation Comments Eosinophils (test code = 0.7 See_Comment [A utomated message] The Eosinophils) system which ge nerated this result tra nsmitted reference range : <=4.0. The reference r frandy was not used to int erpret this result as normal/abnormal . [facility] HospitalBwgwrjnCETGGVEKMD9402-42-17 16:50:00 Test Item Value Reference Range Interpretation Comments Basophils (test code = 0.5 See_Comment [Aut omated message] The Basophils) system which ge nerated this result tra nsmitted reference range : <=1.0. The reference r frandy was not used to int erpret this result as normal/abnormal . [facility] Hospit[id number] 16:50:00 Test Item Value Reference Range Interpretation Comments Eosinophils # (test code 0.1 See_Comment [A utomated message] The = Eosinophils #) system whic h generated this result tra nsmitted reference range : <=0.5. The reference r frandy was not used to int erpret this result as normal/abnormal . [facility] HospitalKvdyctbSHCYWYKTOH6704-03-76 16:50:00 Test Item Value Reference Range Interpretation Comments Lymphocytes # (test code = Lymphocytes 2.4 1.0-5.5 #) [facility] HospitalNhshthcJNEWVCOVIZ0329-48-87 16:50:00 Test Item Value Reference Range Interpretation Comments Segs-Bands # (test code = Segs-Bands #) 5.3 1.5-8.[address] [facility] Hospit[id number] 16:50:00 Test Item Value Reference Range Interpretation Comments Monocytes (test code = Monocytes) 4.8 2.0-12.0 [facility] HospitalSkudgabHUKKLMJKDB8964-78-25 16:50:00 Test Item Value Reference Range Interpretation Comments Lymphocytes (test code = Lymphocytes) 29.4 20.0-40.0 [facility] HospitalYvmtntlHTRYUSWFKI8509-28-44 16:50:00 Test Item Value Reference Range Interpretation Comments Segs (test code = Segs) 64.6 45.0-75.0 [facility] HospitalPARATHYROID [id number] 16:50:00 Test Item Value Reference Range Interpretation Comments PTH Intact (test code = PTH Intact) 59.5 11.1-79.5 [facility]SPECIAL [id number] 16:50:00 Test Item Value Reference Range Interpretation Comments Hgb A1C (test code = Hgb A1C) 5.5 [facility] HospitalCHEM [id number] 16:50:00 Test Item Value Reference Range Interpretation Comments Vitamin D, 25-OH, Total (test code = 24 30-100 Vitamin D, 25-OH, Total) [facility] [id number] 16:50:00 Test Item Value Reference Range Interpretation Comments ALT (test code = ALT) 35 See_Comment [Auto mated message] The system which ge nerated this result transmit elpidio reference range : <=65. The reference range was not used to interpr et this result as azra l/abnormal. [facility] [id number] 16:50:00 Test Item Value Reference Range Interpretation Comments CO2 (test code = CO2) 30 24-32 [facility] [id number] 16:50:00 Test Item Value Reference Range Interpretation Comments Albumin Lvl (test code = Albumin Lvl) 3.9 3.5-5.0 [facility]CHEM [id number] 16:50:00 Test Item Value Reference Range Interpretation Comments AST (test code = AST) 23 See_Comment [Auto mated message] The system which ge nerated this result transmit elpidio reference range : <=37. The reference range was not used to interpr et this result as azra l/abnormal. [facility] [id number] 16:50:00 Test Item Value Reference Range Interpretation Comments eGFR (test code = eGFR) 104 [facility]2016-06-30 16:50:00 Test Item Value Reference Range Interpretation Comments Creatinine Lvl (test code = Creatinine 0.96 0.50-1.40 Lvl) [facility]2016-06-30 16:50:00 Test Item Value Reference Range Interpretation Comments BUN (test code = BUN) 16 7-22 [facility]2016-06-30 16:50:00 Test Item Value Reference Range Interpretation Comments Glucose Lvl (test code = Glucose Lvl) 103 70-99 [facility]2016-06-30 16:50:00 Test Item Value Reference Range Interpretation Comments Sodium Lvl (test code = Sodium Lvl) 140 135-145 [facility]2016-06-30 16:50:00 Test Item Value Reference Range Interpretation Comments Potassium Lvl (test code = Potassium 4.2 3.5-5.1 Lvl) [facility]2016-06-30 16:50:00 Test Item Value Reference Range Interpretation Comments Chloride Lvl (test code = Chloride Lvl) 102 95-109 [facility]2016-06-30 16:50:00 Test Item Value Reference Range Interpretation Comments Calcium Lvl (test code = Calcium Lvl) 9.4 8.5-10.5 [facility]2016-06-30 16:15:00 Test Item Value Reference Range Interpretation Comments UA Urobilinogen (test code = UA <=1.0 mg/dL 0.1-1.0 Urobilinogen) [facility]2016-06-30 16:15:00 Test Item Value Reference Range Interpretation Comments UA Ketones (test code = UA Ketones) Negative [facility]2016-06-30 16:15:00 Test Item Value Reference Range Interpretation Comments Micro? (test code = Performed *NA*(01/19/16 Micro?) 11:15 AM) [facility]2016-06-30 16:15:00 Test Item Value Reference Range Interpretation Comments UA Color (test code = Light Yellow UA Color) *NA*(01/19/16 11:15 AM) [facility]2016-06-30 16:15:00 Test Item Value Reference Range Interpretation Comments UA Turbidity (test code = Clear (6/30/16 11:15 UA Turbidity) AM) [facility] [id number] 16:15:00 Test Item Value Reference Range Interpretation Comments UA Spec Grav (test code = UA Spec Grav) 1.017 [facility] AND [id number] 16:15:00 Test Item Value Reference Range Interpretation Comments UA Protein (test code = UA Negative mg/dL Protein) [facility] AND [id number] 16:15:00 Test Item Value Reference Range Interpretation Comments UA Leuk Est (test Negative (01/19/16 11:15 code = UA Leuk Est) AM) [facility] AND [id number] 16:15:00 Test Item Value Reference Range Interpretation Comments UA Bili (test code = Negative *NA*(01/19/16 UA Bili) 11:15 AM) [facility] AND [id number] 16:15:00 Test Item Value Reference Range Interpretation Comments UA Glucose (test code = UA Negative mg/dL Glucose) [facility] AND [id number] 16:15:00 Test Item Value Reference Range Interpretation Comments UA pH (test code = UA pH) 5.0 5.0-8.0 [facility] AND [id number] 16:15:00 Test Item Value Reference Range Interpretation Comments UA RBC (test code = no gt See_Comment [Automa elpidio message] The UA RBC) system which ge nerated this result transmit elpidio reference range : <=2. The reference range was not used to interpr et this result as azra l/abnormal. [facility] AND [id number] 16:15:00 Test Item Value Reference Range Interpretation Comments UA Mucus (test code = UA Mucus) Few /LPF [facility] AND [id number] 16:15:00 Test Item Value Reference Range Interpretation Comments UA Blood (test code = Small *ABN*(01/19/16 UA Blood) 11:15 AM) [facility] [id number] 16:15:00 Test Item Value Reference Range Interpretation Comments UA Nitrite (test code Negative (01/19/16 11:15 = UA Nitrite) AM) [facility] AND [id number] 16:15:00 Test Item Value Reference Range Interpretation Comments UA Urobilinogen (test code = UA <=1.0 mg/dL 0.1-1.0 Urobilinogen) [facility] AND [id number] 16:15:00 Test Item Value Reference Range Interpretation Comments UA Ketones (test code = UA Ketones) Negative [facility] AND [id number] 16:15:00 Test Item Value Reference Range Interpretation Comments Micro? (test code = Performed *NA*(01/19/16 Micro?) 11:15 AM) [facility] [id number] 16:15:00 Test Item Value Reference Range Interpretation Comments UA Color (test code = Light Yellow UA Color) *NA*(01/19/16 11:15 AM) [facility] [id number] 16:15:00 Test Item Value Reference Range Interpretation Comments UA Turbidity (test code = Clear (01/19/16 11:15 UA Turbidity) AM) [facility] [id number] 16:15:00 Test Item Value Reference Range Interpretation Comments UA Spec Grav (test code = UA Spec Grav) 1.017 [facility] [id number] 16:15:00 Test Item Value Reference Range Interpretation Comments UA Protein (test code = UA Negative mg/dL Protein) [facility] [id number] 16:15:00 Test Item Value Reference Range Interpretation Comments UA Leuk Est (test Negative (01/19/16 11:15 code = UA Leuk Est) AM) [facility] [id number] 16:15:00 Test Item Value Reference Range Interpretation Comments UA Bili (test code = Negative *NA*(01/19/16 UA Bili) 11:15 AM) [facility] [id number] 16:15:00 Test Item Value Reference Range Interpretation Comments UA Glucose (test code = UA Negative mg/dL Glucose) [facility] [id number] 16:15:00 Test Item Value Reference Range Interpretation Comments UA pH (test code = UA pH) 5.0 5.0-8.0 [facility] [id number] 16:15:00 Test Item Value Reference Range Interpretation Comments UA RBC (test code = no gt See_Comment [Automa elpidio message] The UA RBC) system which ge nerated this result transmit elpidio reference range : <=2. The reference range was not used to interpr et this result as azra l/abnormal. [facility] [id number] 16:15:00 Test Item Value Reference Range Interpretation Comments UA Mucus (test code = UA Mucus) Few /LPF [facility] [id number] 16:15:00 Test Item Value Reference Range Interpretation Comments UA Blood (test code = Small *ABN*(01/19/16 UA Blood) 11:15 AM) [facility] AND [id number] 16:15:00 Test Item Value Reference Range Interpretation Comments UA Nitrite (test code Negative (01/19/16 11:15 = UA Nitrite) AM) [facility] [id number] 16:15:00 Test Item Value Reference Range Interpretation Comments UA Urobilinogen (test code = UA <=1.0 mg/dL 0.1-1.0 Urobilinogen) [facility] [id number] 16:15:00 Test Item Value Reference Range Interpretation Comments UA Ketones (test code = UA Ketones) Negative [facility] [id number] 16:15:00 Test Item Value Reference Range Interpretation Comments Micro? (test code = Performed *NA*(01/19/16 Micro?) 11:15 AM) [facility] AND [id number] 16:15:00 Test Item Value Reference Range Interpretation Comments UA Color (test code = Light Yellow UA Color) *NA*(01/19/16 11:15 AM) [facility] [id number] 16:15:00 Test Item Value Reference Range Interpretation Comments UA Turbidity (test code = Clear (01/19/16 11:15 UA Turbidity) AM) [facility] [id number] 16:15:00 Test Item Value Reference Range Interpretation Comments UA Spec Grav (test code = UA Spec Grav) 1.017 [facility] [id number] 16:15:00 Test Item Value Reference Range Interpretation Comments UA Protein (test code = UA Negative mg/dL Protein) [facility] AND [id number] 16:15:00 Test Item Value Reference Range Interpretation Comments UA Leuk Est (test Negative (01/19/16 11:15 code = UA Leuk Est) AM) [facility] [id number] 16:15:00 Test Item Value Reference Range Interpretation Comments UA Bili (test code = Negative *NA*(01/19/16 UA Bili) 11:15 AM) [facility] [id number] 16:15:00 Test Item Value Reference Range Interpretation Comments UA Glucose (test code = UA Negative mg/dL Glucose) [facility] [id number] 16:15:00 Test Item Value Reference Range Interpretation Comments UA pH (test code = UA pH) 5.0 5.0-8.0 [facility] [id number] 16:15:00 Test Item Value Reference Range Interpretation Comments UA RBC (test code = no gt See_Comment [Automa elpidio message] The UA RBC) system which ge nerated this result transmit elpidio reference range : <=2. The reference range was not used to interpr et this result as azra l/abnormal. [facility] [id number] 16:15:00 Test Item Value Reference Range Interpretation Comments UA Mucus (test code = UA Mucus) Few /LPF [facility] [id number] 16:15:00 Test Item Value Reference Range Interpretation Comments UA Blood (test code = Small *ABN*(01/19/16 UA Blood) 11:15 AM) [facility] [id number] 16:15:00 Test Item Value Reference Range Interpretation Comments UA Nitrite (test code Negative (01/19/16 11:15 = UA Nitrite) AM) [facility]
--- NOTE | 2022-07-07 16:59 | RAD REPORT ---
EXAM DESCRIPTION: CT - Head Brain Wo Cont - 07/07/2022 4:37 pm CLINICAL HISTORY: Numbness COMPARISON: 2020 TECHNIQUE: Computed axial tomography of the head was obtained. IV contrast was not requested. All CT scans are performed using dose optimization technique as appropriate and may include automated exposure control or mA/KV adjustment according to patient size. FINDINGS: An intracranial bleed is not seen . The ventricles are normal in caliber. No extra-axial fluid collection is noted. 6 millimeter calcific structure right frontal lobe without change. It represents a cavernous angioma. Fluid within the sinuses/ mastoids is not seen. IMPRESSION: No acute intracranial abnormality is seen. If patient's symptoms persist MRI of the bra in would be recommended.
[2022-07-07 17:34] LABS: Absolute Lymphocytes (CBC) 0.5 K/uL (0.7-4.9); Hematocrit 32.8 % (39.6-49.0); MCV 85.8 fL (80-100); MPV 7.6 fL (7.6-11.3); RBC Red Blood Cell Count 3.82 M/uL (4.33-5.43)
[2022-07-07 17:38] LABS: Protime INR 1.16
[2022-07-07 17:52] LABS: Magnesium 1.9 mg/dL (1.6-2.4); Potassium 3.5 mmol/L (3.5-5.1)
--- NOTE | 2022-07-07 18:00 | EDPHYS ---
Physician Documentation [facility] Name: Marquise Jhaveri Age: 41 yrs Sex: Male : 1980 Arrival Date: 07/07/2022 Time: 16:03 Bed DIS2 Private MD: Sumeet Lazar T ED Physician Emre Damon HPI: 07/07 16:39 This 41 yrs old Male presents to ER via Ambulatory with complaints of Facial rn numbness. 16:40 The patient presents to the emergency department with paresthesias of the face, left rn arm. Onset: The symptoms/episode began/occurred just prior to arrival. Context: occurred at home, occurred while the patient was at rest. Associated signs and symptoms: Pertinent positives: paresthesias, Pertinent negatives: fever, headache, neck stiffness, seizure, syncope, blurred vision, double vision, visual field changes, loss of vision, weakness. Severity of symptoms: At their worst the symptoms were mild in the emergency department the symptoms are unchanged. The patient has experienced similar episodes in the past. The patient has been recently seen by a physician:. Pt reports just discharged after week long stay in hospital for alcoholic pancreatitis. Was at home today, felt warmth and tingling to scalp and face as well as left arm, no weakness, no involvement of leg. No vision problems. No chest pain/sob/abd pain. Reports started to think about it at home and anxiety started kicking in and made tingling worse. . Historical: - Allergies: 16:28 No Known Allergies; ph - PMHx: 16:28 Anxiety; herniated discs; Hypertension; Pancreatitis; ph - PSHx: 16:28 back surgery; Gastric Bypass; ph - Immunization history:: Adult Immunizations up to date. - Family history:: not pertinent. - Social history:: Smoking status: Reported history of juuling and/or vaping. - Hospitalizations: : The patient was recently seen at [facility]. ROS: 16:40 Constitutional: Negative for fever, chills, and weight loss, Eyes: Negative for injury, rn pain, redness, and discharge, Neck: Negative for injury, pain, and swelling, Cardiovascular: Negative for chest pain, and edema, Respiratory: Negative for shortness of breath, cough, wheezing, and pleuritic chest pain, Abdomen/GI: Negative for abdominal pain, nausea, vomiting, diarrhea, and constipation, Back: Negative for injury and pain, MS/Extremity: Negative for injury and deformity, Skin: Negative for injury, rash, and discoloration, Neuro: Negative for headache, weakness, and seizure. Exam: 16:40 Constitutional: This is a well developed, well nourished patient who is awake, alert, rn and in no acute distress. Ambulatory to triage without difficulty or assistance. Head/Face: Normocephalic, atraumatic. Cardiovascular: Tachycardic, regular. No pulse deficits. Respiratory: Mild tachypnea, no retractions, speaking full sentences. Skin: Warm, dry MS/ Extremity: Pulses equal, no cyanosis. Neuro: Awake and alert, GCS 15, oriented to person, place, time, and situation. Cranial nerves II-XII grossly intact. Motor strength 5/5 in all extremities. Sensory grossly intact. Cerebellar exam normal. Normal gait. Vital Signs: 16:24 BP 128 / 83; Pulse 102; Resp 20; Temp 98.2; Pulse Ox 100% on R/A; Weight 129.27 kg; ph Height 6 ft. 0 in. (182.88 cm); 16:24 Body Mass Index 38.65 (129.27 kg, 182.88 cm) ph NIH Stroke Scale Scores: 16:40 NIHSS Score: 0 ph MDM: 16:04 Patient medically screened. rn 17:58 Data reviewed: vital signs, nurses notes, lab test result(s), radiologic studies, CT rn scan, and as a result, I will discharge patient. Counseling: I had a detailed discussion with the patient and/or guardian regarding: the historical points, exam findings, and any diagnostic results supporting the discharge/admit diagnosis, lab results, radiology results, the need for outpatient follow up, to return to the emergency department if symptoms worsen or persist or if there are any questions or concerns that arise at home. Response to treatment: the patient's symptoms have markedly improved after treatment, and as a result, I will discharge patient. Special discussion: I discussed with the patient/guardian in detail that at this point there is no indication for admission to the hospital. It is understood, however, that if the symptoms persist or worsen the patient needs to return immediately for re-evaluation. Based on the history and exam findings, there is no indication for further emergent testing or inpatient evaluation. I discussed with the patient/guardian the need to see the primary care provider for further evaluation of the symptoms. ED course: No acute findings in blood or ct head. Stable vitals. Symptoms improved as well as anxiety. Will dc home with return precautions. . 07/07 16:18 Order name: CBC with Diff; Complete Time: 17:57 rn 07/07 16:18 Order name: Basic Metabolic Panel; Complete Time: 17:57 rn 07/07 16:18 Order name: CT Head Brain wo Cont; Complete Time: 17:06 rn 07/07 16:18 Order name: Protime (+inr); Complete Time: 17:57 rn 07/07 16:18 Order name: Ptt, Activated; Complete Time: 17:57 rn 07/07 16:18 Order name: Magnesium; Complete Time: 17:57 rn 07/07 16:04 Order name: EKG; Complete Time: 16:05 rn 07/07 16:04 Order name: EKG - Nurse/Tech; Complete Time: 17:23 rn 07/07 16:18 Order name: IV Start; Complete Time: 17:23 rn Administered Medications: No medications were administered Disposition Summary: 07/07/22 17:59 Discharge Ordered Location: Home rn Problem: new rn Symptoms: have improved rn Condition: Stable rn Diagnosis - Paresthesia of skin rn - Anxiety disorder, unspecified rn Followup: rn - With: Private Physician - When: As needed - Reason: Recheck today's complaints, Re-evaluation by your physician Discharge Instructions: - Discharge Summary Sheet rn - Paresthesia rn - Generalized Anxiety Disorder, Adult rn - Managing Anxiety, Adult rn Forms: - Medication Reconciliation Form rn - Thank You Letter rn - Antibiotic rn relief charge - Prescription Opioid Use rn NIH Stroke Scale - NIH Stroke Score Date: 07/07/2022 Time: 16:40 Total Score = 0 1a. Level of Consciousness (LOC) - 0(Alert) 1b. Level of Consciousness (LOC) (Month \T\ Age) - 0(Both) 1c. LOC Commands (Open \T\ Closes Eyes/Controls Project Engineer) - 0(Both) 2. Best Gaze (Lateral Gaze Paresis) - 0(Normal) 3. Visual Field Loss - 0(No visual loss) 4. Facial Palsy - 0(Normal) 5a. Left Arm: Motor (10-second hold) - 0(No drift) 5b. Right Arm: Motor (10-second hold) - 0(No drift) 6a. Left Leg: Motor (5-second hold - always test supine) - 0(No drift) 6b. Right Leg: Motor (5-second hold - always test supine) - 0(No drift) 7. Limb Ataxia (finger/nose \T\ heel/villa - test with eyes open) - 0(Absent) 8. Sensory Loss (pinprick arms/legs/face) - 0(Normal) 9. Best Language: Aphasia (description/naming/reading) - 0(No aphasia) 10. Dysarthria (speech clarity - read or repeat words) - 0(Normal) 11. Extinction and Inattention (visual/tactile/auditory/spatial/personal) - 0(No abnormality) Initials: ph Signatures: Dispatcher [employer] EDMS Emre Damon MD MD rn Hall, Patricia, RN RN ph Corrections: (The following items were deleted from the chart) 16:42 16:40 Constitutional: Negative for fever, chills, and weight loss, Eyes: rn Negative for injury, pain, redness, and discharge, Neck: Negative for injury, pain, and swelling, Cardiovascular: Negative for chest pain, palpitations, and edema, Respiratory: Negative for shortness of breath, cough, wheezing, and pleuritic chest pain, Abdomen/GI: Negative for abdominal pain, nausea, vomiting, diarrhea, and constipation, Back: Negative for injury and pain, MS/Extremity: Negative for injury and deformity, Skin: Negative for injury, rash, and discoloration, Neuro: Negative for headache, weakness, and seizure, rn
--- NOTE | 2022-07-07 18:00 | ER ---
Nurse's Notes [facility] Name: Marquise Jhaveri Age: 41 yrs Sex: Male : 1980 Arrival Date: 07/07/2022 Time: 16:03 Bed DIS2 Private MD: Sumeet Lazar T Diagnosis: Paresthesia of skin;Anxiety disorder, unspecified Presentation: 07/07 16:24 Chief complaint: Patient states: Recently d/c from hospital after being admitted for ph pancreatitis, hx of alcohol use, c/o numbness and tingling to face, head and L arm, also reports feeling anxious, palpitations and sharp chest pain. Coronavirus screen: Vaccine status: Patient reports being unvaccinated. Ebola Screen: No symptoms or risks identified at this time. Initial Sepsis Screen: Does the patient meet any 2 criteria? No. Patient's initial sepsis screen is negative. Does the patient have a suspected source of infection? No. Patient's initial sepsis screen is negative. Risk Assessment: Do you want to hurt yourself or someone else? Patient reports no desire to harm self or others. Onset of symptoms was July 07, 2022. 16:24 Method Of Arrival: Ambulatory ph 16:24 Acuity: ARNULFO 3 ph Triage Assessment: 16:40 General: Appears in no apparent distress. Behavior is cooperative, anxious. Pain: ph Complains of pain in chest. Neuro: Level of Consciousness is awake, alert, obeys commands, Oriented to person, place, time, situation, Reports numbness paresthesias in face, scalp and left arm. Cardiovascular: Reports chest pain, palpitations. Respiratory: Airway is patent Respiratory effort is even, unlabored. Derm: Skin is healthy with good turgor, Skin is pink, warm \T\ dry. Musculoskeletal: Circulation, motion, and sensation intact. Range of motion: intact in all extremities. Historical: - Allergies: 16:28 No Known Allergies; ph - PMHx: 16:28 Anxiety; herniated discs; Hypertension; Pancreatitis; ph - PSHx: 16:28 back surgery; Gastric Bypass; ph - Immunization history:: Adult Immunizations up to date. - Family history:: not pertinent. - Social history:: Smoking status: Reported history of juuling and/or vaping. - Hospitalizations: : The patient was recently seen at [facility]. Screenin:00 [facility] ED Fall Risk Assessment (Adult) Score/Fall Risk Level 0 - 2 = Low Risk ph Oriented to surroundings, Maintained a safe environment. Abuse screen: Denies threats or abuse. Denies injuries from another. Nutritional screening: No deficits noted. Tuberculosis screening: No symptoms or risk factors identified. Fall Risk Total Perla Fall Scale indicates No Risk (0-24 pts). Assessment: 16:28 Reassessment: Pt taken to CT via wheelchair from lobby. ph Vital Signs: 16:24 BP 128 / 83; Pulse 102; Resp 20; Temp 98.2; Pulse Ox 100% on R/A; Weight 129.27 kg; ph Height 6 ft. 0 in. (182.88 cm); 16:24 Body Mass Index 38.65 (129.27 kg, 182.88 cm) ph NIH Stroke Scale Scores: 16:40 NIHSS Score: 0 ph ED Course: 16:03 Patient arrived in ED. mr 16:03 Sumeet Lazar MD is Private Physician. mr 16:04 Emre Damon MD is Attending Physician. rn 16:28 Triage completed. ph 16:39 CT Head Brain wo Cont In Process Unspecified. EDMS 17:00 Arm band placed on. ph 17:00 Patient has correct armband on for positive identification. ph 17:21 Inserted saline lock: 22 gauge in right antecubital area, using aseptic technique. ph Blood collected. inserted by charge nurse, Lito HIGGINBOTHAM. Administered Medications: No medications were administered Medication: 17:22 VIS not applicable for this client. ph Outcome: 17:59 Discharge ordered by . rn 18:06 Patient left the ED. hb NIH Stroke Scale - NIH Stroke Score Date: 07/07/2022 Time: 16:40 Total Score = 0 1a. Level of Consciousness (LOC) - 0(Alert) 1b. Level of Consciousness (LOC) (Month \T\ Age) - 0(Both) 1c. LOC Commands (Open \T\ Closes Eyes/Spares Scheduler) - 0(Both) 2. Best Gaze (Lateral Gaze Paresis) - 0(Normal) 3. Visual Field Loss - 0(No visual loss) 4. Facial Palsy - 0(Normal) 5a. Left Arm: Motor (10-second hold) - 0(No drift) 5b. Right Arm: Motor (10-second hold) - 0(No drift) 6a. Left Leg: Motor (5-second hold - always test supine) - 0(No drift) 6b. Right Leg: Motor (5-second hold - always test supine) - 0(No drift) 7. Limb Ataxia (finger/nose \T\ heel/villa - test with eyes open) - 0(Absent) 8. Sensory Loss (pinprick arms/legs/face) - 0(Normal) 9. Best Language: Aphasia (description/naming/reading) - 0(No aphasia) 10. Dysarthria (speech clarity - read or repeat words) - 0(Normal) 11. Extinction and Inattention (visual/tactile/auditory/spatial/personal) - 0(No abnormality) Initials: ph Signatures: Dispatcher [employer] Yoli Padilla Roman, MD MD rn Hall, Patricia, RN RN Adelita Sandoval RN RN
[2022-07-07 18:42] VITALS: BP 128/83; TEMP 98.2; O2SAT 100
--- NOTE | 2022-07-08 15:50 | EKG ---
Test Date: 2022-07-07 Test Time: 17:23:28 [employer] Supervisor: JONNA MEASUREMENT RESULTS: Intervals: Rate: 89 AK: 130 QRSD: 90 QT: 358 QTc: 435 [place]: P: 41 AK: 130 QRS: 20 T: -9 INTERPRETIVE STATEMENTS: Normal sinus rhythm Minimal voltage criteria for LVH, may be normal variant Borderline ECG Compared to ECG 10/24/2021 03:04:39 Left ventricular hypertrophy now present Electronically Signed On 07-08-22 15:49:13 [employer]MICAL PLANT WORK[employer] by [employer]
== END 2022-07-07 18:06 | disposition home or self-care (01) ==
LOC: ER 16:00
DX: R20.2 Paresthesia of skin (principal); F41.9 Anxiety disorder, unspecified; I10 Essential (primary) hypertension
CPT/HCPCS: 36415; 70450; 80048; 83735; 85025; 85610; 85730; 93005; 99283

== ENCOUNTER 2023-10-21 09:19 | Emergency (ER) | payer OTHER ==
[2023-10-21 09:53] LABS: Absolute Lymphocytes (CBC) 0.9 K/uL (0.7-4.9); Absolute Monocytes 0.4 K/uL (0.1-1.3); Absolute Neutrophil 2.6 K/uL (1.8-8.0); Basophils % 0.5 % (0-1.3); Hematocrit 33.8 % (39.6-49.0); Hemoglobin 10.8 g/dL (13.6-17.9); Lymphocytes % 23.1 % (15.3-44.8); MCH 26.8 pg (27.0-35.0); MCHC 32.1 g/dL (32.0-36.0); MCV 83.7 fL (80-100); MPV 6.9 fL (7.6-11.3); Monocytes % 10.7 % (3.3-12.3); Neutrophils % 64.7 % (41.7-73.7); Nucleated Red Blood Cells % 0.1 % (0-0); Platelets 194 thou/uL (152-406); RBC Red Blood Cell Count 4.04 M/uL (4.33-5.43); Red Cell Distribution Width 16.8 % (12.1-15.2)
--- NOTE | 2023-10-21 09:58 | RAD REPORT ---
EXAM DESCRIPTION: RAD - Chest Single View - 10/21/2023 9:53 am CLINICAL HISTORY: CHEST PAIN COMPARISON: Chest Single View dated 10/24/2021; Chest Single View dated 09/07/2021; Chest Pa And Lat (2 Views) dated 08/03/2021; Chest Single View dated 07/03/2021 FINDINGS: Lines: None. Lungs: No evidence of edema or pneumonia. Pleural: No significant pleural effusions or pneumothorax. Cardiac: The heart size is within normal limits. Mediastinum: Within normal limits. Bones: No acute fractures. Other: None IMPRESSION: No acute cardiopulmonary disease.
[2023-10-21 10:11] LABS: Anion Gap 9.2 mEq/L (5.0-15.0); BUN Blood Urea Nitrogen 8 mg/dL (7-18); Bicarbonate 28 mEq/L (21-32); Glomerular Filtration Rate 116 ml/min (=/>90); Glucose Level 126 mg/dL (74-106); Potassium 4.2 mEq/L (3.5-5.1); Sodium Level 135 mEq/L (136-145)
[2023-10-21 10:15] LABS: Troponin High Sensitivity < 3.0 pg/mL (<58.9)
[2023-10-21] MEDS ORDERED: LORazepam 2 MG/ML VIAL ONE (10:29)
[2023-10-21] MEDS ORDERED: ONDANSETRON 4 MG/2 ML VIAL ONE (10:29)
[2023-10-21] MEDS ORDERED: KETOROLAC 30 MG/ML INJ ONE (10:30)
[2023-10-21] MEDS ORDERED: hydrOXYzine HCL 25 MG TAB ONE (10:30)
[2023-10-21] MEDS ORDERED: NA CHLORIDE 0.9% 1,000 ML ONE (10:30)
--- NOTE | 2023-10-21 11:32 | ER ---
Nurse's Notes [facility] Name: Marquise Jhaveri Age: 42 yrs Sex: Male : 1980 Arrival Date: 10/21/2023 Time: 09:19 Bed 16 Private MD: Diagnosis: Anxiety disorder, unspecified Presentation: 10/20 09:39 Chief complaint: Patient states: CP, L arm pain, anxiety since Saturday. Coronavirus ll1 screen: Client denies travel out of the [place] in the last 14 days. At this time, the client does not indicate any symptoms associated with coronavirus-19. Ebola Screen: Patient denies travel to an Ebola-affected area in the 21 days before illness onset. Initial Sepsis Screen: Does the patient meet any 2 criteria? No. Patient's initial sepsis screen is negative. Does the patient have a suspected source of infection? No. Patient's initial sepsis screen is negative. Risk Assessment: Do you want to hurt yourself or someone else? Patient reports no desire to harm self or others. Onset of symptoms was October 19, 2023. 09:39 Method Of Arrival: Ambulatory ll1 09:39 Acuity: ARNULFO 3 ll1 Triage Assessment: 09:40 General: Appears uncomfortable, Behavior is cooperative, appropriate for age, anxious. ll1 Pain: Complains of pain in chest. Cardiovascular: Reports chest pain, shortness of breath. Respiratory: Reports shortness of breath. Historical: - Allergies: 09:37 No Known Allergies; ll1 - PMHx: 09:37 Anxiety; herniated discs; Hypertension; Pancreatitis; ll1 - PSHx: 09:37 back surgery; Gastric Bypass; ll1 - Immunization history:: Adult Immunizations up to date. - Social history:: Smoking status: Reported history of juuling and/or vaping. Screenin:26 [facility] ED Fall Risk Assessment (Adult) History of falling in the last 3 months, rs5 including since admission No falls in past 3 months (0 pts) Confusion or Disorientation No (0 pts) Intoxicated or Sedated No (0 pts) Impaired Gait No (0 pts) Mobility Assist Device Used No (0 pt) Altered Elimination No (0 pt) Score/Fall Risk Level 0 - 2 = Low Risk Oriented to surroundings, Maintained a safe environment. 09:26 Abuse screen: Denies threats or abuse. Nutritional screening: No deficits noted. rs5 Tuberculosis screening: No symptoms or risk factors identified. Assessment: 09:26 General: Appears in no apparent distress. comfortable, Behavior is cooperative, rs5 anxious. Pain: Complains of pain in chest Pain radiates to left arm Pain currently is 7 out of 10 on a pain scale. Quality of pain is described as aching, Pain began 2-3 days ago. Is continuous. 09:26 Neuro: Level of Consciousness is awake, alert, obeys commands, Oriented to person, rs5 place, time, situation. Cardiovascular: Patient's skin is warm and dry. Rhythm is regular. Respiratory: Airway is patent Respiratory effort is even, unlabored, Respiratory pattern is regular, symmetrical. GI: Abdomen is round non-distended, Abd is soft and non tender X 4 quads. : No signs and/or symptoms were reported regarding the genitourinary system. EENT: No signs and/or symptoms were reported regarding the EENT system. Derm: Skin is intact, Skin is pink, warm \T\ dry. Musculoskeletal: Range of motion: intact in all extremities. 10:30 Reassessment: Patient and/or family updated on plan of care and expected duration. Pain rs5 level reassessed. Patient is alert, oriented x 3, equal unlabored respirations, skin warm/dry/pink. Patient denies pain at this time. Patient states feeling better. Patient states symptoms have improved. 11:45 Reassessment: No changes from previously documented assessment. rs5 Vital Signs: 09:30 BP 144 / 97; Pulse 89; Resp 18; Pulse Ox 99% on R/A; rs5 09:39 Resp 18; Weight 123.83 kg; Height 6 ft. 0 in. ; Pain 8/10; ll1 10:25 Pulse 99; Pulse Ox 97% ; ec2 11:40 BP 142 / 95; Pulse 81; Resp 18; Temp 98(O); Pulse Ox 99% on R/A; rs5 09:39 Body Mass Index 37.03 (123.83 kg, 182.88 cm) ll1 09:39 Pain Scale: Adult ll1 ED Course: 09:22 Patient arrived in ED. rg4 09:24 Dandre Juares MD is Attending Physician. ec2 09:26 Patient has correct armband on for positive identification. Placed in gown. Bed in low rs5 position. Call light in reach. Side rails up X2. 09:26 No provider procedures requiring assistance completed. rs5 09:32 Zechariah Hendrix, RN is Primary Nurse. rs5 09:37 Arm band placed on Patient placed in an exam room, on a stretcher. ll1 09:40 Triage completed. ll1 09:55 XRAY Chest (1 view) In Process Unspecified. EDMS 11:49 IV discontinued, intact, bleeding controlled, No redness/swelling at site. Pressure rs5 dressing applied. Administered Medications: 09:55 Drug: Ativan IVP 2 mg IVP once Route: IVP; Site: right antecubital; rs5 10:20 Follow up: Response: No adverse reaction rs5 09:55 Drug: hydrOXYzine PO 50 mg PO once Route: PO; rs5 11:00 Follow up: Response: No adverse reaction rs5 09:55 Drug: Ondansetron IVP 4 mg IVP once; over 2 minutes Route: IVP; Site: right antecubital;rs5 10:20 Follow up: Response: No adverse reaction rs5 09:55 Drug: NS 0.9% IV 1000 ml IV at 1 bolus Per protocol; 1000 mL bolus Route: IV; Rate: 1 rs5 bolus; Site: right antecubital; 11:00 Follow up: Response: No adverse reaction rs5 09:55 Drug: Ketorolac IVP 15 mg IVP once Route: IVP; Site: right antecubital; rs5 11:00 Follow up: Response: No adverse reaction; Pain is decreased rs5 Medication: 10:57 VIS not applicable for this client. rs5 Outcome: 11:31 Discharge ordered by . ec2 11:49 Discharged to home ambulatory, rs5 11:49 Condition: stable rs5 11:49 Discharge instructions given to patient, family, Instructed on discharge instructions, follow up and referral plans. Demonstrated understanding of instructions, follow-up care, 11:50 Patient left the ED. rs5 Signatures: Dispatcher [employer] Surekha Kaur rg4 Lito Islas RN RN ll1 Zechariah Hendrix, RN RN rs5 Dandre Juares MD MD ec2 Corrections: (The following items were deleted from the chart) 04 07:13 04/ 12:01 Patient left the ED. rs5 rs5 10/21 07:25 10/20 10:40 BP 142 / 95; Pulse 81bpm; Resp 18bpm; Pulse Ox 99% RA; Temp 98F Oral; rs5 rs5
--- NOTE | 2023-10-21 11:32 | EDPHYS ---
Physician Documentation [facility] Name: Marquise Jhaveri Age: 42 yrs Sex: Male : 1980 Arrival Date: 10/21/2023 Time: 09:19 Bed 16 Private MD: ED Physician Dandre Juares HPI: 10/20 09:34 This 42 yrs old Male presents to ER via Unassigned with complaints of Near ec2 Syncope, Anxiety, Arm Pain. 09:34 Patient arrives today due to concern for anxiety and chest pain. Patient reports 2 days ec2 of symptoms, states he is having chest pain radiating to left arm. Patient reports some racing thoughts as well as palpitations and tremulousness. Patient reports history of anxiety. No daily medication use. Patient does report history of alcohol use, states his last drink was last night.. Historical: - Allergies: 09:37 No Known Allergies; ll1 - PMHx: 09:37 Anxiety; herniated discs; Hypertension; Pancreatitis; ll1 - PSHx: 09:37 back surgery; Gastric Bypass; ll1 - Immunization history:: Adult Immunizations up to date. - Social history:: Smoking status: Reported history of juuling and/or vaping. ROS: 09:34 Constitutional: as per hpi ec2 Exam: 09:34 Constitutional: GEN: NAD Head: atraumatic Eyes: EOMI Ears: External ears are ec2 normal. CV: Tachycardia LUNGS: no respiratory distress ABD: non-distended SKIN: no evidence of rashes MSK: no evidence of trauma NEURO: moves all extremities equally, tremulous. Psych: Pressured speech Vital Signs: 09:30 BP 144 / 97; Pulse 89; Resp 18; Pulse Ox 99% on R/A; rs5 09:39 Resp 18; Weight 123.83 kg; Height 6 ft. 0 in. ; Pain 8/10; ll1 10:25 Pulse 99; Pulse Ox 97% ; ec2 11:40 BP 142 / 95; Pulse 81; Resp 18; Temp 98(O); Pulse Ox 99% on R/A; rs5 09:39 Body Mass Index 37.03 (123.83 kg, 182.88 cm) ll1 09:39 Pain Scale: Adult ll1 MDM: 09:28 Patient medically screened. ec2 09:34 Data reviewed: vital signs. ED course: Patient arrives today due to concern for anxiety ec2 and chest pain. Examination remarkable for anxious individual is otherwise in no acute distress. Will obtain a cardiac workup, treat the patient symptoms and reassess. Evaluating for ACS, electrolyte disturbances, arrhythmia, anxiety.. 10:08 ED course: CBC shows slight anemia, chest x-ray shows no acute intrathoracic process. . ec2 10:28 ED course: Metabolic profile reassuring, troponin undetectable. . ec2 11:31 ED course: EKG independently reviewed and interpreted by me, shows normal sinus rhythm, ec2 rate of 87, no acute ST segment elevations, intervals nonconcerning.. 10/20 09:34 Order name: Basic Metabolic Panel; Complete Time: 10:28 ec2 10/20 09:34 Order name: CBC with Diff; Complete Time: 10:08 ec2 10/20 09:34 Order name: Troponin HS; Complete Time: 10:28 ec2 10/20 09:34 Order name: XRAY Chest (1 view); Complete Time: 10:08 ec2 10/20 09:34 Order name: EKG; Complete Time: 09:34 ec2 10/20 09:34 Order name: Cardiac monitoring; Complete Time: 10:54 ec2 10/20 09:34 Order name: EKG - Nurse/Tech; Complete Time: 10:54 ec2 10/20 09:34 Order name: IV Saline Lock; Complete Time: 10:54 ec2 10/20 09:34 Order name: Labs collected and sent; Complete Time: 10:54 ec2 10/20 09:34 Order name: O2 Per Protocol; Complete Time: 10:54 ec2 10/20 09:34 Order name: O2 Sat Monitoring; Complete Time: 10:54 ec2 10/20 10:27 Order name: Vital Signs; Complete Time: 10:54 ec2 Administered Medications: 09:55 Drug: Ativan IVP 2 mg IVP once Route: IVP; Site: right antecubital; rs5 10:20 Follow up: Response: No adverse reaction rs5 09:55 Drug: hydrOXYzine PO 50 mg PO once Route: PO; rs5 11:00 Follow up: Response: No adverse reaction rs5 09:55 Drug: Ondansetron IVP 4 mg IVP once; over 2 minutes Route: IVP; Site: right antecubital;rs5 10:20 Follow up: Response: No adverse reaction rs5 09:55 Drug: NS 0.9% IV 1000 ml IV at 1 bolus Per protocol; 1000 mL bolus Route: IV; Rate: 1 rs5 bolus; Site: right antecubital; 11:00 Follow up: Response: No adverse reaction rs5 09:55 Drug: Ketorolac IVP 15 mg IVP once Route: IVP; Site: right antecubital; rs5 11:00 Follow up: Response: No adverse reaction; Pain is decreased rs5 Disposition Summary: 10/21/23 11:31 Discharge Ordered Notes: Location: Home ec2 Condition: Stable ec2 Diagnosis - Anxiety disorder, unspecified ec2 Followup: ec2 - With: Private Physician - When: - Reason: Re-evaluation by your physician Discharge Instructions: - Discharge Summary Sheet ec2 - Generalized Anxiety Disorder, Adult ec2 Forms: - Medication Reconciliation Form ec2 - Thank You Letter ec2 - Antibiotic Education ec2 - Prescription Opioid Use ec2 - Patient Portal Instructions ec2 - Leadership Thank You Letter ec2 Prescriptions: - Hydroxyzine HCl 25 mg Oral Tablet - take 1 tablet ORAL route every 6 hours As needed; 30 tablet; Refills: 0, ec2 Product Selection Permitted Signatures: Dispatcher [employer] Lito Beatty RN RN ll1 Zechariah Hendrix RN RN rs5 Dandre Juares MD MD ec2
[2023-10-21 17:17] VITALS: BP 142/95; TEMP 98; O2SAT 99
--- NOTE | 2023-10-22 13:31 | EKG ---
Test Date: 2023-10-21 Test Time: 11:15:54 Operations Supervisor 2Nd Shift: JONNA MEASUREMENT RESULTS: Intervals: Rate: 87 WV: 130 QRSD: 84 QT: 354 QTc: 425 [place]: P: 45 WV: 130 QRS: 10 T: 10 INTERPRETIVE STATEMENTS: Normal sinus rhythm Normal ECG Compared to ECG 07/07/2022 17:23:28 Left ventricular hypertrophy no longer present Electronically Signed On 10-22-23 13:28:15 CDT by Pantera Proctor
== END 2023-10-21 12:01 | disposition home or self-care (01) ==
LOC: ER 09:19
DX: F41.9 Anxiety disorder, unspecified (principal); R55 Syncope and collapse; I10 Essential (primary) hypertension
CPT/HCPCS: 93005; 85025; 80048; 36415; 84484; 71045; 96375; 96374; 99284; J2405; J7030

== ENCOUNTER 2023-11-20 12:29 | Emergency (ER) | payer OTHER ==
[2023-11-20] MEDS ORDERED: NA CHLORIDE 0.9% 1,000 ML ONE (12:56)
[2023-11-20 13:06] LABS: Absolute Basophils 0.1 K/uL (0-0.5); Absolute Lymphocytes (CBC) 0.9 K/uL (0.7-4.9); Absolute Monocytes 0.3 K/uL (0.1-1.3); Absolute Neutrophil 2.9 K/uL (1.8-8.0); Basophils % 1.2 % (0-1.3); Eosinophils % 0.7 % (0-4.4); Hemoglobin 11.1 g/dL (13.6-17.9); Lymphocytes % 20.9 % (15.3-44.8); MCH 27.4 pg (27.0-35.0); MCHC 32.6 g/dL (32.0-36.0); MPV 7.4 fL (7.6-11.3); Monocytes % 8.3 % (3.3-12.3); Neutrophils % 68.9 % (41.7-73.7); Nucleated Red Blood Cells % 0.1 % (0-0); Platelets 151 thou/uL (152-406); RBC Red Blood Cell Count 4.05 M/uL (4.33-5.43); Red Cell Distribution Width 15.7 % (12.1-15.2)
[2023-11-20 13:09] LABS: Specific Gravity < 1.005 (1.005-1.030); Urine Bilirubin NEGATIVE (Negative); Urine Blood Negative (Negative); Urine Clarity Clear (Clear); Urine Color Colorless (Yellow); Urine Glucose NEGATIVE (Negative); Urine Ketones NEGATIVE (Negative); Urine Microscopic Reflex YN NO UMIC; Urine Nitrite NEGATIVE (Negative); Urine Protein NEGATIVE (Negative); Urine Urobilinogen Normal (Normal); Urine pH 5.5 (5.0-7.0)
[2023-11-20 13:20] LABS: Barbiturates NEGATIVE (NEGATIVE); Benzodiazepines NEGATIVE (NEGATIVE); Cocaine NEGATIVE (NEGATIVE); METHAMPHETAM NEGATIVE (NEGATIVE); Methadone NEGATIVE (NEGATIVE); Opiates POSITIVE (NEGATIVE); Phencyclidine NEGATIVE (NEGATIVE); THC Cannibis NEGATIVE (NEGATIVE)
[2023-11-20 13:24] LABS: Albumin 3.7 g/dL (3.4-5.0); Albumin/Globulin Ratio 1.1 (1.1-1.8); Anion Gap 6.9 mEq/L (5.0-15.0); Bilirubin Total 0.6 mg/dL (0.2-1.0); Globulin 3.5 g/dL (2.3-3.5); Potassium 3.9 mEq/L (3.5-5.1); Protein, Total 7.2 g/dL (6.4-8.2); Troponin High Sensitivity 3.8 pg/mL (<58.9)
--- NOTE | 2023-11-20 13:38 | RAD REPORT ---
EXAM DESCRIPTION: CTAbdomen Pelvis W Contrast - 11/20/2023 1:30 pm CLINICAL HISTORY: Abdominal pain. ABD PAIN COMPARISON: Abdomen Pelvis W Contrast dated 07/06/2023; Abdomen Pelvis W Contrast dated 07/04/20; Abdomen Pelvis W Contrast dated 07/01/2022; Abdomen Pelvis W Contrast dated 03/25/2022; Abdomen Pelvis W Contrast dated 10/24/2021 TECHNIQUE: Biphasic CT imaging of the abdomen and pelvis was performed with 100 ml non-ionic IV cont rast. All CT scans are performed using dose optimization technique as appropriate and may include automated exposure control or mA/KV adjustment according to patient size. FINDINGS: The lung bases are clear. The liver demonstrates diffuse fatty infiltration. Spleen, adrenal glands and kidneys are within norm al limits. 4.1 x 2.5 cm pancreatic tail collection appears significantly smaller than on the 07/06/20 23 study and presumably residual small pseudocyst. No bowel obstruction, free air, free fluid or abscess. Small fat containing umbilical hernia. The tripp endix is normal. Prominent stool is present throughout colon. No evidence of significant lymphadenopa thy. Small fat containing inguinal hernias. No suspicious bony findings. IMPRESSION: Prominent diffuse fatty liver. Significant decrease size of pancreatic tail pseudocyst since comparative study.
--- NOTE | 2023-11-20 14:38 | EDPHYS ---
Physician Documentation [facility] Name: Marquise Jhaveri Age: 42 yrs Sex: Male : 1980 Arrival Date: 11/20/2023 Time: 12:29 Bed 17 Private MD: ED Physician Judie Nettles HPI: 11/19 13:55 This 42 yrs old Male presents to ER via Ambulatory with complaints of sd2 Dizziness, Numbness, Abdominal Pain, Vomiting. 13:55 42-year-old male presents with a chief complaint of abdominal pain and vomiting since saturday. He reports associated dizziness, lightheadedness and anxiety. He states he has a history of alcoholic pancreatitis and drink 2 500 mL bottles of wine last night. He reports he normally drinks every day before going to bed. He denies any associated chest pain or shortness of breath or diarrhea.. Historical: - PMHx: 12:40 Anxiety; herniated discs; Hypertension; Pancreatitis; mb9 - PSHx: 12:40 back surgery; Gastric Bypass; mb9 - Immunization history:: Adult Immunizations up to date. - Infectious Disease History:: Denies. - Social history:: Smoking status: Reported history of juuling and/or vaping. ROS: 13:55 Constitutional: Negative for fever, chills, and weight loss, Eyes: Negative for injury, sd2 pain, redness, and discharge, Cardiovascular: Negative for chest pain, palpitations, and edema, Respiratory: Negative for shortness of breath, cough, wheezing. Abdomen/GI: Positive for abdominal pain, nausea, vomiting, Negative for diarrhea. : Negative for dysuria, frequency or hematuria. MS/Extremity: Negative for injury and deformity, Skin: Negative for injury, rash, and discoloration, Exam: 13:55 Constitutional: This is a well developed, well nourished patient who is awake, alert, sd2 and in no acute distress. Head/Face: Normocephalic, atraumatic. Eyes: EOMI, normal conjunctiva bilaterally Chest/axilla: Normal chest wall appearance and motion. Nontender with no deformity. Cardiovascular: Regular rate and rhythm with a normal S1 and S2. No gallops, murmurs, or rubs. 2+ distal pulses. Respiratory: Lungs have equal breath sounds bilaterally, clear to auscultation and percussion. No rales, rhonchi or wheezes noted. No increased work of breathing, no retractions or nasal flaring. Abdomen/GI: Soft, ND, TTP in epigastric, RUQ and LLQ, mild, no rebound or guarding Skin: Warm, dry with normal turgor. Normal color with no rashes, no lesions, and no evidence of cellulitis. MS/ Extremity: Pulses equal, no cyanosis. Neurovascular intact. Full, normal range of motion. Psych: Awake, alert, with orientation to person, place and time. Behavior, mood, and affect are within normal limits. 13:55 ECG was reviewed by the Attending Physician. NSR, rate 98, no STEMI criteria or sd2 significant ST-T wave changes Vital Signs: 12:45 BP 168 / 87; Pulse 112; Resp 18; Temp 97.1(TE); Pulse Ox 97% on R/A; Weight 127.01 kg; nj1 Height 6 ft. 0 in. ; Pain 8/10; 13:17 BP 139 / 89; Pulse 94; Resp 18; Pulse Ox 97% on R/A; mb9 14:33 BP 137 / 85; Pulse 85; Resp 18; Pulse Ox 100% on R/A; mb9 12:45 Body Mass Index 37.97 (127.01 kg, 182.88 cm) nj1 12:45 Pain Scale: Adult nj1 MDM: 12:40 Patient medically screened. sd2 13:55 Differential diagnosis: Gastritis, cholecystitis, pancreatitis, SBO, diverticulitis, sd2 kidney stone, appendicitis, UTI, dehydration, electrolyte abnormality among others. Data reviewed: vital signs, nurses notes. I considered the following discharge prescriptions or medication management in the emergency department Medications were administered in the Emergency Department. See MAR. Care significantly affected by the following chronic conditions: Hypertension, pancreatitis. 14:33 External Records Reviewed: Inpatient record: Prior hospitalizations for pancreatitis sd2 reviewed. Care significantly affected by the following Social Determinants of Health: Misuse of alcohol and/or drugs. Counseling: I had a detailed discussion with the patient and/or guardian regarding the historical points, exam findings, and any diagnostic results supporting the discharge/admit diagnosis, lab results, radiology results, the need for outpatient follow up, to return to the emergency department if symptoms worsen or persist or if there are any questions or concerns that arise at home, Substance abuse. Response to treatment: the patient's symptoms have markedly improved after treatment. ED course: HR improved. Pt resting and sleeping comfortably at time of repeat evaluation. Advised of all results and need for continued supportive care. Pt not agreeable to quitting drinking completely at this time so he was advised of safe options for detox and given resources. Librium taper was not offered due to this. Pt reports he will continue to drink just enough to keep away withdrawal symptoms. No signs of pancreatitis at this time. Verbalizes understanding of discharge plan and strict return precautions.. 11/19 12:50 Order name: CBC with Diff; Complete Time: 13:58 sd2 11/19 12:50 Order name: CMP; Complete Time: 13:58 sd2 11/19 12:50 Order name: Lipase; Complete Time: 13:58 sd2 11/19 12:50 Order name: Troponin High Sensitivity; Complete Time: 13:58 sd2 11/19 12:50 Order name: Urinalysis w/ reflexes sd2 11/19 12:50 Order name: Urine Drug Screen; Complete Time: 13:58 sd2 11/19 12:50 Order name: CT Abd/Pelvis - IV Contrast Only; Complete Time: 13:58 sd2 11/19 12:50 Order name: EKG - Nurse/Tech; Complete Time: 13:05 sd2 Administered Medications: 13:04 Drug: NS 0.9% IV 1000 ml IV at 1 bolus Per protocol; 1000 mL bolus Route: IV; Rate: 1 mb9 bolus; Site: right forearm; 14:38 Follow up: Response: No adverse reaction; IV Status: Completed infusion mb9 13:04 Drug: Droperidol IVP 1.25 mg IVP once Route: IVP; Site: right forearm; mb9 14:04 Follow up: Response: No adverse reaction mb9 Disposition Summary: 11/20/23 14:37 Discharge Ordered Notes: Location: Home sd2 Problem: new sd2 Symptoms: have improved sd2 Condition: Stable sd2 Diagnosis - Upper abdominal pain, unspecified sd2 - Nausea with vomiting, unspecified sd2 - Alcohol abuse sd2 - Dizziness and giddiness sd2 Followup: sd2 - With: Private Physician - When: 2 - 3 days - Reason: Recheck today's complaints, Continuance of care, Re-evaluation by your physician Discharge Instructions: - Discharge Summary Sheet iw - Abdominal Pain, Adult sd2 - Nausea and Vomiting, Adult sd2 Forms: - Work release form iw - Medication Reconciliation Form sd2 - Antibiotic Education sd2 - Prescription Opioid Use sd2 - Patient Portal Instructions sd2 - Leadership Thank You Letter sd2 Prescriptions: - dicyclomine 20 mg Oral tablet - take 1 tablet ORAL route every 6 hours As needed Take as needed for abdominal sd2 cramping; 15 tablet; Refills: 0, Product Selection Permitted - ondansetron 8 mg Oral Tablet,disintegrating - take 1 tablet ORAL route every 8 hours As needed; 10 tablet; Refills: 0, sd2 Product Selection Permitted Signatures: Dispatcher [employer] EDMS Judie Nettles MD MD sd2 Yoli Flynn RN RN mb9 Janene Brown RN RN nj1 Corrections: (The following items were deleted from the chart) 12:51 12:51 CBC+H.LAB.BRZ ordered. EDMS EDMS 12:51 12:51 COMPREHENSIVE METABOLIC PANEL+C.LAB.BRZ ordered. EDMS EDMS 12:51 12:51 LIPASE+C.LAB.BRZ ordered. EDMS EDMS 12:51 12:51 Troponin High Sensitivity+C.LAB.BRZ ordered. EDMS EDMS 12:51 12:51 Urinalysis+U.LAB.BRZ ordered. EDMS EDMS 12:51 12:51 URINE DRUG SCREEN+UC.LAB.BRZ ordered. EDMS EDMS
--- NOTE | 2023-11-20 14:38 | ER ---
Nurse's Notes [facility] Name: Marquise Jhaveri Age: 42 yrs Sex: Male : 1980 Arrival Date: 11/20/2023 Time: 12:29 Bed 17 Private MD: Diagnosis: Upper abdominal pain, unspecified;Nausea with vomiting, unspecified;Alcohol abuse;Dizziness and giddiness Presentation: 11/19 12:41 Chief complaint: Patient states: Right upper abdominal pain on/off for the last couple nj1 of days. Started having nausea and vomiting yesterday. Concerned it may be pancreatitis, has had it in the past. 12:46 Ebola Screen: No symptoms or risks identified at this time. Initial Sepsis Screen: Does mb9 the patient meet any 2 criteria? No. Patient's initial sepsis screen is negative. Does the patient have a suspected source of infection? No. Patient's initial sepsis screen is negative. Risk Assessment: Do you want to hurt yourself or someone else? Patient reports no desire to harm self or others. Onset of symptoms was November 20, 2023. 12:46 Acuity: ARNULFO 3 mb9 12:46 Method Of Arrival: Ambulatory mb9 12:47 Coronavirus screen: Vaccine status: Patient reports being unvaccinated. nj1 Historical: - PMHx: 12:40 Anxiety; herniated discs; Hypertension; Pancreatitis; mb9 - PSHx: 12:40 back surgery; Gastric Bypass; mb9 - Immunization history:: Adult Immunizations up to date. - Infectious Disease History:: Denies. - Social history:: Smoking status: Reported history of juuling and/or vaping. Screenin:40 [facility] ED Fall Risk Assessment (Adult) History of falling in the last 3 months, mb9 including since admission No falls in past 3 months (0 pts) Confusion or Disorientation No (0 pts) Intoxicated or Sedated No (0 pts) Impaired Gait No (0 pts) Mobility Assist Device Used No (0 pt) Altered Elimination No (0 pt) Score/Fall Risk Level 0 - 2 = Low Risk Oriented to surroundings, Maintained a safe environment, Educated pt \T\ family on fall prevention, incl call for assistance when getting out of bed. Abuse screen: Denies threats or abuse. Nutritional screening: No deficits noted. Tuberculosis screening: No symptoms or risk factors identified. Assessment: 12:44 General: Appears uncomfortable, Behavior is calm, cooperative. Pain: Complains of pain mb9 in abdomen Pain radiates to RUQ Pain currently is 10 out of 10 on a pain scale. Quality of pain is described as throbbing, Pain began suddenly, Is continuous. Neuro: Lal Agitation-Sedation Scale (RASS): 0 - Alert and Calm Level of Consciousness is awake, alert, obeys commands, Oriented to person, place, time, situation, Appropriate for age. Cardiovascular: Patient's skin is warm and dry. Respiratory: Airway is patent Respiratory effort is even, unlabored, Respiratory pattern is regular, symmetrical. GI: Abdomen is round non-distended, Bowel sounds present X 4 quads. Abd is soft X 4 quads Abdomen is tender to palpation in epigastric area and right upper quadrant. : No signs and/or symptoms were reported regarding the genitourinary system. EENT: No signs and/or symptoms were reported regarding the EENT system. Derm: Skin is pink, warm \T\ dry. Musculoskeletal: Range of motion: intact in all extremities. 13:58 Reassessment: No changes from previously documented assessment. Patient and/or family mb9 updated on plan of care and expected duration. Pain level reassessed. Patient is alert, oriented x 3, equal unlabored respirations, skin warm/dry/pink. 14:33 Reassessment: No changes from previously documented assessment. Patient and/or family mb9 updated on plan of care and expected duration. Pain level reassessed. Patient is alert, oriented x 3, equal unlabored respirations, skin warm/dry/pink. Vital Signs: 12:45 BP 168 / 87; Pulse 112; Resp 18; Temp 97.1(TE); Pulse Ox 97% on R/A; Weight 127.01 kg; nj1 Height 6 ft. 0 in. ; Pain 8/10; 13:17 BP 139 / 89; Pulse 94; Resp 18; Pulse Ox 97% on R/A; mb9 14:33 BP 137 / 85; Pulse 85; Resp 18; Pulse Ox 100% on R/A; mb9 12:45 Body Mass Index 37.97 (127.01 kg, 182.88 cm) [facility] 12:45 Pain Scale: Adult [facility] ED Course: 12:33 Patient arrived in ED. im 12:40 Yoli Flynn, RN is Primary Nurse. mb9 12:40 Judie Nettles MD is Attending Physician. sd2 12:40 Arm band placed on. mb9 12:41 Placed in gown. Bed in low position. Call light in reach. Side rails up X 1. Provided mb9 Education on: press call light if needing anything. Client placed on continuous cardiac and pulse oximetry monitoring. NIBP monitoring applied. Door closed. Noise minimized. Warm blanket given. 12:47 Triage completed. mb9 12:47 No provider procedures requiring assistance completed. mb9 13:05 Urine Drug Screen Sent. mb9 13:05 Urinalysis w/ reflexes Sent. mb9 13:05 Inserted saline lock: 20 gauge in right forearm, using aseptic technique. Blood mb9 collected. 13:30 CT Abd/Pelvis - IV Contrast Only In Process Unspecified. EDMS 13:[address] mb9 14:33 IV discontinued, intact, bleeding controlled, No redness/swelling at site. Pressure mb9 dressing applied. Administered Medications: 13:04 Drug: NS 0.9% IV 1000 ml IV at 1 bolus Per protocol; 1000 mL bolus Route: IV; Rate: 1 mb9 bolus; Site: right forearm; 14:38 Follow up: Response: No adverse reaction; IV Status: Completed infusion mb9 13:04 Drug: Droperidol IVP 1.25 mg IVP once Route: IVP; Site: right forearm; mb9 14:04 Follow up: Response: No adverse reaction mb9 Medication: 12:41 VIS not applicable for this client. mb9 Outcome: 14:37 Discharge ordered by . sd2 14:44 Discharged to home ambulatory, mb9 14:44 Condition: stable 14:44 Discharge instructions given to patient, Instructed on discharge instructions, follow up and referral plans. Demonstrated understanding of instructions, follow-up care, medications, Prescriptions given X 2, 14:44 Patient left the ED. mb9 Signatures: Dispatcher [employer] EDMS Judie Nettles MD MD sd2 Yoli Flynn, RN RN mb9 Janene Brown RN RN nj1 Maryana Iraheta Corrections: (The following items were deleted from the chart) 13:19 13:17 Pulse 94bpm; Resp 18bpm; Pulse Ox 97% RA; mb9 mb9
[2023-11-20 15:12] VITALS: BP 137/85; TEMP 97.1; O2SAT 100
--- NOTE | 2023-11-22 14:42 | EKG ---
Test Date: 2023-11-20 Test Time: 13:09:08 Consumer Education Specialist: AIDEN MEASUREMENT RESULTS: Intervals: Rate: 98 MS: 132 QRSD: 90 QT: 342 QTc: 436 [place]: P: 52 MS: 132 QRS: -2 T: 22 INTERPRETIVE STATEMENTS: Normal sinus rhythm Normal ECG Compared to ECG 10/21/2023 11:15:54 No significant changes Electronically Signed On 11-22-23 14:38:50 CDT by Pantera Proctor
== END 2023-11-20 14:44 | disposition home or self-care (01) ==
LOC: ER 12:29
DX: R10.10 Upper abdominal pain, unspecified (principal); R11.2 Nausea with vomiting, unspecified; R42 Dizziness and giddiness; F10.10 Alcohol abuse, uncomplicated
CPT/HCPCS: 85025; 36415; 81003; 84484; 83690; 80053; 80307; 74177; Q9967; J7030; 93005; 96361; 96374; 99285

== ENCOUNTER 2023-12-18 14:45 | Emergency (ER) | payer OTHER ==
[2023-12-18] MEDS ORDERED: ONDANSETRON 4 MG/2 ML VIAL ONE (16:04)
[2023-12-18] MEDS ORDERED: MORPHINE 4 MG/ML SYR ONE (16:04)
[2023-12-18] MEDS ORDERED: NA CHLORIDE 0.9% 1,000 ML ONE (16:04)
[2023-12-18 16:10] LABS: Absolute Basophils 0.1 K/uL (0-0.5); Absolute Lymphocytes (CBC) 1.1 K/uL (0.7-4.9); Absolute Monocytes 0.4 K/uL (0.1-1.3); Absolute Neutrophil 5.4 K/uL (1.8-8.0); Basophils % 0.7 % (0-1.3); Eosinophils % 0.6 % (0-4.4); Hematocrit 38.6 % (39.6-49.0); Hemoglobin 12.4 g/dL (13.6-17.9); Lymphocytes % 16.2 % (15.3-44.8); MCH 26.6 pg (27.0-35.0); MCV 83.2 fL (80-100); Neutrophils % 76.5 % (41.7-73.7); Platelets 302 thou/uL (152-406); RBC Red Blood Cell Count 4.64 M/uL (4.33-5.43); Red Cell Distribution Width 13.9 % (12.1-15.2)
[2023-12-18 16:38] LABS: Albumin 3.9 g/dL (3.4-5.0); Albumin/Globulin Ratio 1.1 (1.1-1.8); Anion Gap 7.7 mEq/L (5.0-15.0); Bilirubin Total 0.7 mg/dL (0.2-1.0); Globulin 3.6 g/dL (2.3-3.5); Potassium 3.7 mEq/L (3.5-5.1); Protein, Total 7.5 g/dL (6.4-8.2)
--- NOTE | 2023-12-18 17:08 | EDPHYS ---
Physician Documentation [facility] Name: Marquise Jhaveri Age: 42 yrs Sex: Male : 1980 Arrival Date: 12/18/2023 Time: 14:45 Bed 6 Private MD: ED Physician Silvana Portillo HPI: 12/17 16:38 This 42 yrs old Male presents to ER via Ambulatory with complaints of sp3 Abdominal Pain. 16:38 42-year-old male with a history of hypertension, multiple episodes of pancreatitis, sp3 anxiety now presents to the ED with chief complaint epigastric pain. Patient states he was admitted on December 08 1 week ago and discharged on December 10. He states that he "faked his pain getting better so he can make it back to work" but does not believe that he should have left. He denies any changes in his symptoms other than the continued pain. He has occasional emesis nonbloody. He denies diarrhea, back pain, shortness of breath, chest pain, fever, or any other signs or symptoms on ROS at this time. CT scan from December 08 demonstrates mild to moderate pancreatitis.. Historical: - Allergies: 15:28 No Known Allergies; db - PMHx: 15:28 Anxiety; Hypertension; Pancreatitis; herniated discs; db - PSHx: 15:28 back surgery; Gastric Bypass; db - Immunization history:: Adult Immunizations unknown. - Infectious Disease History:: Denies. - Social history:: Smoking status: Reported history of juuling and/or vaping. ROS: 16:39 Constitutional: Negative for fever, chills, and weight loss, Eyes: Negative for injury, sp3 pain, redness, and discharge, ENT: Negative for injury, pain, and discharge, Neck: Negative for injury, pain, and swelling, Cardiovascular: Negative for chest pain, palpitations, and edema, Respiratory: Negative for shortness of breath, cough, wheezing, and pleuritic chest pain, Back: Negative for injury and pain, MS/Extremity: Negative for injury and deformity, Skin: Negative for injury, rash, and discoloration, Neuro: Negative for headache, weakness, numbness, tingling, and seizure, Psych: Negative for depression, anxiety, suicide ideation, homicidal ideation, and hallucinations, Allergy/Immunology: Negative for hives, rash, and allergies, Endocrine: Negative for neck swelling, polydipsia, polyuria, polyphagia, and marked weight changes, Hematologic/Lymphatic: Negative for swollen nodes, abnormal bleeding, and unusual bruising, 16:39 All other systems are negative, Exam: 16:40 Constitutional: This is a well developed, well nourished patient who is awake, alert, sp3 and in no acute distress. Head/Face: Normocephalic, atraumatic. Eyes: Pupils equal round and reactive to light, extra-ocular motions intact. Lids and lashes normal. Conjunctiva and sclera are non-icteric and not injected. Cornea within normal limits. Periorbital areas with no swelling, redness, or edema. ENT: Nares patent. No nasal discharge, no septal abnormalities noted. External auditory canals are clear. Oropharynx with no redness, swelling, or masses, exudates, or evidence of obstruction, uvula midline. Mucous membranes moist. Neck: Trachea midline, no thyromegaly or masses palpated, and no cervical lymphadenopathy. Supple, full range of motion without nuchal rigidity, or vertebral point tenderness. No Meningismus. Chest/axilla: Normal chest wall appearance and motion. Nontender with no deformity. No lesions are appreciated. Cardiovascular: Regular rate and rhythm with a normal S1 and S2. No gallops, murmurs, or rubs. Normal PMI, no JVD. No pulse deficits. Respiratory: Lungs have equal breath sounds bilaterally, clear to auscultation and percussion. No rales, rhonchi or wheezes noted. No increased work of breathing, no retractions or nasal flaring. Back: No spinal tenderness. No costovertebral tenderness. Full range of motion. Skin: Warm, dry with normal turgor. Normal color with no rashes, no lesions, and no evidence of cellulitis. MS/ Extremity: Pulses equal, no cyanosis. Neurovascular intact. Full, normal range of motion. Neuro: Awake and alert, GCS 15, oriented to person, place, time, and situation. Cranial nerves II-XII grossly intact. Motor strength 5/5 in all extremities. Sensory grossly intact. Cerebellar exam normal. Normal gait. Psych: Awake, alert, with orientation to person, place and time. Behavior, mood, and affect are within normal limits. 16:40 Abdomen/GI: Mild epigastric pain to palpation without peritoneal signs, rebound or guarding. Nonsurgical abdomen., Vital Signs: 15:26 BP 170 / 115; Pulse 90; Resp 16; Temp 97.8(O); Pulse Ox 99% ; Weight 122.47 kg; Height db 6 ft. 0 in. ; 16:49 BP 178 / 110; Pulse 79; Resp 18; Pulse Ox 99% on R/A; ld1 17:14 BP 182 / 103; Pulse 74; Resp 18; Pulse Ox 100% on R/A; ld1 15:26 Body Mass Index 36.62 (122.47 kg, 182.88 cm) db MDM: 15:33 Patient medically screened. sp3 16:41 Data reviewed: vital signs, nurses notes, old medical records, lab test result(s), sp3 radiologic studies. ED course: 42-year-old male with recurrent epigastric abdominal pain. Differential diagnosis includes pancreatitis, gastritis, colitis, musculoskeletal, among others. I am not highly suspicious for acute coronary syndrome or aortic pathology. Patient is not septic. Blood pressure is elevated in a known hypertensive setting. Patient is not tachycardic dehydrated or in any distress. Morphine 1 dose has been given I told the patient we would hold on any further narcotic pain medication until lipase is returned. CT scan not indicated at this time given review of results from the . Disposition pending workup and patient course.. 17:03 ED course: Lipase is 71. At this time we will discharge patient home and he can sp3 follow-up with his PCP. This is chronic abdominal pain.. 12/17 15:34 Order name: CBC with Diff; Complete Time: 17:01 sp3 12/17 15:34 Order name: CMP; Complete Time: 17:01 sp3 12/17 15:34 Order name: Lipase; Complete Time: 17:01 sp3 12/17 15:34 Order name: IV Saline Lock; Complete Time: 16:06 sp3 12/17 15:34 Order name: Labs collected and sent; Complete Time: 16:06 sp3 Administered Medications: 16:06 Drug: NS 0.9% IV 1000 ml IV at 1 bolus Per protocol; 1000 mL bolus Route: IV; Rate: 1 mb9 bolus; Site: right antecubital; 17:08 Follow up: Response: No adverse reaction; IV Status: Completed infusion mb9 16:06 Drug: Ondansetron IVP 4 mg IVP once; over 2 minutes Route: IVP; Site: right antecubital;mb9 17:00 Follow up: Response: No adverse reaction mb9 16:10 Drug: morphine IVP or IV 4 mg IVP once over 4 mins Route: IVP; Infused Over: 4 mins; mb9 Site: right antecubital; 17:00 Follow up: Response: No adverse reaction mb9 Disposition Summary: 12/18/23 17:08 Discharge Ordered Notes: Location: Home sp3 Condition: Stable sp3 Diagnosis - Abdominal pain sp3 Followup: sp3 - With: Private Physician - When: Upon discharge from the Emergency Department - Reason: Continuance of care Discharge Instructions: - Discharge Summary Sheet sp3 - Abdominal Pain, Adult sp3 Forms: - Medication Reconciliation Form sp3 - Antibiotic Education sp3 - Prescription Opioid Use sp3 - Patient Portal Instructions sp3 - Leadership Thank You Letter sp3 Signatures: Dispatcher [employer] Silvana Monroe MD MD sp3 Alize Johns RN RN db Breneman, Mary Beth, RN RN mb9
--- NOTE | 2023-12-18 17:08 | ER ---
Nurse's Notes [facility] Name: Marquise Jhaveri Age: 42 yrs Sex: Male : 1980 Arrival Date: 12/18/2023 Time: 14:45 Bed 6 Private MD: Diagnosis: Abdominal pain Presentation: 12/17 15:26 Chief complaint: Patient states: RIGHT UPPER ABD PAIN X 2 DAYS. STATES HAS NAUSEA AND db DIARRHEA. DENIES VOMITING. RECENTLY DISCHARGE FOR PANCREATITIS ON 12/10. Coronavirus screen: Client denies travel out of the [place] in the last 14 days. At this time, the client does not indicate any symptoms associated with coronavirus-19. Ebola Screen: Patient negative for fever greater than or equal to 101.5 degrees Fahrenheit, and additional compatible Ebola Virus Disease symptoms Patient denies exposure to infectious person. Patient denies travel to an Ebola-affected area in the 21 days before illness onset. No symptoms or risks identified at this time. Initial Sepsis Screen: Does the patient meet any 2 criteria? No. Patient's initial sepsis screen is negative. Does the patient have a suspected source of infection? No. Patient's initial sepsis screen is negative. Risk Assessment: Do you want to hurt yourself or someone else? Patient reports no desire to harm self or others. Onset of symptoms was December 16, 2023. 15:26 Method Of Arrival: Ambulatory db 15:26 Acuity: ARNULFO 3 db Triage Assessment: 15:28 General: Appears in no apparent distress. uncomfortable, Behavior is calm, cooperative. db Pain: Complains of pain in abdomen. Neuro: Level of Consciousness is awake, alert, obeys commands, Oriented to person, place, time, situation. Respiratory: Airway is patent Respiratory effort is even, unlabored, Respiratory pattern is regular, symmetrical. GI: Abdomen is. Historical: - Allergies: 15:28 No Known Allergies; db - PMHx: 15:28 Anxiety; Hypertension; Pancreatitis; herniated discs; db - PSHx: 15:28 back surgery; Gastric Bypass; db - Immunization history:: Adult Immunizations unknown. - Infectious Disease History:: Denies. - Social history:: Smoking status: Reported history of juuling and/or vaping. Screenin:06 [facility] ED Fall Risk Assessment (Adult) History of falling in the last 3 months, mb9 including since admission No falls in past 3 months (0 pts) Confusion or Disorientation No (0 pts) Intoxicated or Sedated No (0 pts) Impaired Gait No (0 pts) Mobility Assist Device Used No (0 pt) Altered Elimination No (0 pt) Score/Fall Risk Level 0 - 2 = Low Risk Oriented to surroundings, Maintained a safe environment, Educated pt \T\ family on fall prevention, incl call for assistance when getting out of bed. Abuse screen: Denies threats or abuse. Nutritional screening: No deficits noted. Tuberculosis screening: No symptoms or risk factors identified. Assessment: 16:05 General: Appears in no apparent distress. uncomfortable, Behavior is calm, cooperative. mb9 Pain: Complains of pain in abdomen Pain does not radiate. Pain currently is 10 out of 10 on a pain scale. Quality of pain is described as throbbing, Pain began suddenly. Neuro: Lal Agitation-Sedation Scale (RASS): 0 - Alert and Calm Level of Consciousness is awake, alert, obeys commands, Oriented to person, place, time, situation, Appropriate for age. Cardiovascular: Patient's skin is warm and dry. Respiratory: Airway is patent Respiratory effort is even, unlabored, Respiratory pattern is regular, symmetrical, Breath sounds are clear bilaterally. GI: Abdomen is round non-distended, Bowel sounds present X 4 quads. Abd is soft Abdomen is tender to palpation in right upper quadrant and left upper quadrant Reports diarrhea, nausea. : No signs and/or symptoms were reported regarding the genitourinary system. EENT: No signs and/or symptoms were reported regarding the EENT system. Derm: Skin is pink, warm \T\ dry. Musculoskeletal: Range of motion: intact in all extremities. 17:08 Reassessment: No changes from previously documented assessment. Patient and/or family mb9 updated on plan of care and expected duration. Pain level reassessed. Patient is alert, oriented x 3, equal unlabored respirations, skin warm/dry/pink. 17:14 Reassessment: No changes from previously documented assessment. Patient and/or family ld1 updated on plan of care and expected duration. Pain level reassessed. Vital Signs: 15:26 BP 170 / 115; Pulse 90; Resp 16; Temp 97.8(O); Pulse Ox 99% ; Weight 122.47 kg; Height db 6 ft. 0 in. ; 16:49 BP 178 / 110; Pulse 79; Resp 18; Pulse Ox 99% on R/A; ld1 17:14 BP 182 / 103; Pulse 74; Resp 18; Pulse Ox 100% on R/A; ld1 15:26 Body Mass Index 36.62 (122.47 kg, 182.88 cm) db ED Course: 14:46 Patient arrived in ED. mg5 14:55 Silvana Portillo MD is Attending Physician. sp3 15:28 Triage completed. db 15:28 Arm band placed on. db 15:58 Yoli Flynn, ANAHY is Primary Nurse. mb9 16:00 Placed in gown. Bed in low position. Call light in reach. Side rails up X 1. Client mb9 placed on continuous cardiac and pulse oximetry monitoring. NIBP monitoring applied. 16:04 Initial lab(s) drawn, by me, sent to lab. Inserted saline lock: 22 gauge in right mb9 antecubital area, using aseptic technique. 16:06 CBC with Diff Sent. mb9 16:06 CMP Sent. mb9 16:06 Lipase Sent. mb9 16:18 CMP Sent. mb9 16:20 Patient requests pain medication. mb9 16:52 Provided Education on: press call light if needing anything. mb9 16:52 No provider procedures requiring assistance completed. mb9 16:59 Patient requests pain medication. mb9 17:08 IV discontinued, intact, bleeding controlled, No redness/swelling at site. Pressure mb9 dressing applied. Administered Medications: 16:06 Drug: NS 0.9% IV 1000 ml IV at 1 bolus Per protocol; 1000 mL bolus Route: IV; Rate: 1 mb9 bolus; Site: right antecubital; 17:08 Follow up: Response: No adverse reaction; IV Status: Completed infusion mb9 16:06 Drug: Ondansetron IVP 4 mg IVP once; over 2 minutes Route: IVP; Site: right antecubital;mb9 17:00 Follow up: Response: No adverse reaction mb9 16:10 Drug: morphine IVP or IV 4 mg IVP once over 4 mins Route: IVP; Infused Over: 4 mins; mb9 Site: right antecubital; 17:00 Follow up: Response: No adverse reaction mb9 Medication: 16:51 VIS not applicable for this client. mb9 Outcome: 17:08 Discharge ordered by . [email or web address] 17:12 Discharged to home ambulatory, [email or web address] 17:12 Condition: stable 17:12 Discharge instructions given to patient, Instructed on discharge instructions, follow up and referral plans. Demonstrated understanding of instructions, follow-up care, 17:15 Patient left the ED. ld1 Signatures: Felicia Chavez RN RN ld1 Silvana Portillo MD MD sp3 Alize Johns RN RN Yoli Stockton RN RN mb9 Hali Osman mg5
[2023-12-18 18:23] VITALS: BP 182/103; TEMP 97.8; O2SAT 100
== END 2023-12-18 17:15 | disposition home or self-care (01) ==
LOC: ER 14:45
DX: R10.9 Unspecified abdominal pain (principal); I10 Essential (primary) hypertension; F41.9 Anxiety disorder, unspecified; Z98.84 Bariatric surgery status
CPT/HCPCS: 96361; 85025; 36415; 83690; 80053; 96375; 96374; 99284; J2405; J7030

== ENCOUNTER 2024-01-06 18:03 | Emergency (ER) | payer OTHER ==
[2024-01-06 19:43] LABS: Absolute Lymphocytes (CBC) 1.1 K/uL (0.7-4.9); Absolute Monocytes 0.2 K/uL (0.1-1.3); Absolute Neutrophil 2.1 K/uL (1.8-8.0); Eosinophils % 0.5 % (0-4.4); Hematocrit 38.3 % (39.6-49.0); Hemoglobin 12.2 g/dL (13.6-17.9); Lymphocytes % 31.8 % (15.3-44.8); MCH 26.8 pg (27.0-35.0); MCHC 31.9 g/dL (32.0-36.0); MCV 83.8 fL (80-100); Monocytes % 5.7 % (3.3-12.3); Nucleated Red Blood Cells % 0.1 % (0-0); Platelets 231 thou/uL (152-406); RBC Red Blood Cell Count 4.57 M/uL (4.33-5.43); Red Cell Distribution Width 15.8 % (12.1-15.2)
[2024-01-06 20:00] LABS: Albumin 3.7 g/dL (3.4-5.0); Albumin/Globulin Ratio 0.9 (1.1-1.8); Bilirubin Total 0.5 mg/dL (0.2-1.0); Protein, Total 7.7 g/dL (6.4-8.2)
[2024-01-06] MEDS ORDERED: ONDANSETRON 4 MG/2 ML VIAL ONE (20:20)
[2024-01-06] MEDS ORDERED: KETOROLAC 30 MG/ML INJ ONE (20:20)
[2024-01-06] MEDS ORDERED: FENTANYL CITR 100 MCG/2 ML ONE (20:20)
[2024-01-06] MEDS ORDERED: FAMOTIDINE 20 MG/2 ML VIAL IV ONE (20:20)
[2024-01-06] MEDS ORDERED: NA CHLORIDE 0.9% 1,000 ML ONE (20:21)
[2024-01-06] MEDS ORDERED: LORazepam 2 MG/ML VIAL ONE (21:22)
--- NOTE | 2024-01-06 21:55 | RAD REPORT ---
EXAM DESCRIPTION: CT - Abdomen Pelvis W Contrast - 01/06/2024 9:22 pm CLINICAL HISTORY: ABD PAIN COMPARISON: Abdomen Pelvis W Contrast dated 12/09/2023; Abdomen Pelvis W Contrast dated 11/20/2023; Abdomen Pelvis W Contrast dated 07/06/2023; Abdomen Pelvis W Contrast dated 07/04/2022 TECHNIQUE: Thin cut axial CT imaging of the abdomen and pelvis was performed following intravenous a dministration of iodinated contrast. Multiplanar reformats were generated and reviewed. All CT scans are performed using dose optimization technique as appropriate and may include automated exposure control or mA/KV adjustment according to patient size. FINDINGS: No suspicious findings in the lung bases. The liver shows diffuse parenchymal hypoattenuation suggesting steatosis. Interval resolution of infl ammatory changes involving the head of the pancreas and pancreatic or duodenal groove. Ovoid cyst at the tail of the pancreas has increased in size, measuring 5.2 x 4.7 cm, suggesting a pseudo cyst. 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 Adrenal glands and spleen show no other suspicious findings. Gallbladder and bili blair tree are also without suspicious finding. Symmetric renal function is seen with no hydronephrosis or suspicious renal mass. Sequelae of gastric bypass again seen. No dilated bowel loops or bowel wall thickening. No free air, free fluid or inflammatory stranding. No hernia, mass or bulky lymphadenopathy. The urinary bladder i s without significant finding. No suspicious bony findings. IMPRESSION: No acute intra-abdominal process. Interval increase in size of cystic lesion at the tail of the pancreas, suggesting a pseudocyst in th e setting of prior attacks of pancreatitis. This now measures 5.2 x 4.7 cm. 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
--- NOTE | 2024-01-06 22:12 | ER ---
Nurse's Notes [facility] Name: Marquise Jhaveri Age: 43 yrs Sex: Male : 1980 Arrival Date: 01/06/2024 Time: 18:03 Bed 18 Private MD: Diagnosis: Upper abdominal pain, unspecified;Anxiety disorder, unspecified Presentation: 01/05 18:22 Chief complaint: Patient states: upper abd pain that began 1-2 days ago, reports hx of aa5 pancreatitis. Reports nausea and feeling anxious. 18:22 Coronavirus screen: nausea. Ebola Screen: Patient denies travel to an Ebola-affected [facility] area in the 21 days before illness onset. Initial Sepsis Screen: Does the patient meet any 2 criteria? No. Patient's initial sepsis screen is negative. Does the patient have a suspected source of infection? No. Patient's initial sepsis screen is negative. Risk Assessment: Do you want to hurt yourself or someone else? Patient reports no desire to harm self or others. Onset of symptoms was January 05, 2024. 18:22 Acuity: ARNULFO 3 aa5 18:22 Method Of Arrival: Ambulatory aa5 Triage Assessment: 18:24 General: Appears uncomfortable, Behavior is cooperative, anxious. Neuro: Level of aa5 Consciousness is awake, alert, obeys commands, Oriented to person, place, time, situation. Respiratory: Airway is patent Respiratory effort is even, unlabored, Respiratory pattern is regular, symmetrical. Derm: Skin is pink, warm \T\ dry. Historical: - Allergies: 18:22 No Known Allergies; aa5 - PMHx: 18:22 Anxiety; herniated discs; Hypertension; Pancreatitis; aa5 - PSHx: 18:22 back surgery; Gastric Bypass; aa5 - Immunization history:: Adult Immunizations unknown. - Infectious Disease History:: Denies. - Social history:: Smoking status: Reported history of juuling and/or vaping. Screenin:29 [facility] ED Fall Risk Assessment (Adult) History of falling in the last 3 months, mb9 including since admission No falls in past 3 months (0 pts) Confusion or Disorientation No (0 pts) Intoxicated or Sedated No (0 pts) Impaired Gait No (0 pts) Mobility Assist Device Used No (0 pt) Altered Elimination No (0 pt) Score/Fall Risk Level 0 - 2 = Low Risk Oriented to surroundings, Maintained a safe environment, Educated pt \T\ family on fall prevention, incl call for assistance when getting out of bed. Abuse screen: Denies threats or abuse. Nutritional screening: No deficits noted. Tuberculosis screening: No symptoms or risk factors identified. Assessment: 20:37 General: Appears in no apparent distress. Behavior is calm, cooperative. General: mb9 Behavior is anxious. Pain: Complains of pain in abdomen Pain radiates to left upper quadrant and right upper quadrant. Neuro: Lal Agitation-Sedation Scale (RASS): 0 - Alert and Calm Level of Consciousness is awake, alert, obeys commands, Oriented to person, place, time, situation, Appropriate for age. Cardiovascular: Patient's skin is warm and dry. Respiratory: Airway is patent Respiratory effort is even, unlabored, Respiratory pattern is regular, symmetrical. GI: Abdomen is round non-distended, Bowel sounds present X 4 quads. Abd is soft Abdomen is tender to palpation in left upper quadrant and right upper quadrant Reports nausea. : No signs and/or symptoms were reported regarding the genitourinary system. EENT: No signs and/or symptoms were reported regarding the EENT system. Derm: Skin is pink, warm \T\ dry. Musculoskeletal: Range of motion: intact in all extremities. 21:26 Reassessment: Patient appears in no apparent distress at this time. No changes from mb9 previously documented assessment. Patient and/or family updated on plan of care and expected duration. Pain level reassessed. Patient is alert, oriented x 3, equal unlabored respirations, skin warm/dry/pink. Patient states symptoms have not improved. Vital Signs: 18:22 BP 154 / 101; Pulse 90; Resp 20 S; Temp 97.5(TE); Pulse Ox 99% on R/A; Weight 127.01 kg aa5 (R); Height 6 ft. 0 in. (R); Pain 9/10; 21:08 BP 177 / 108; Pulse 84; Resp 18; Pulse Ox 100% on R/A; mb9 22:34 BP 171 / 100; Pulse 88; Resp 17; Pulse Ox 98% on R/A; kd3 18:22 Body Mass Index 37.97 (127.01 kg, 182.88 cm) aa5 18:22 Pain Scale: Adult aa5 ED Course: 18:05 Patient arrived in ED. mr 18:10 Dandre Juares MD is Attending Physician. ec2 18:13 [facility] Storm [facility] sb4 18:22 Arm band placed on. aa5 18:24 Triage completed. aa5 19:37 CBC with Diff Sent. bc6 19:37 CMP Sent. bc6 19:37 Lipase Sent. bc6 19:37 Initial lab(s) drawn, by me, sent to lab. Inserted saline lock: 20 gauge in left bc6 antecubital area, using aseptic technique. Blood collected. 20:10 Yoli lFynn, RN is Primary Nurse. mb9 20:15 Patient requests pain medication. mb9 20:17 Radiology exam delayed due to patient does not want to come to CT at this time. nj 20:29 Placed in gown. Bed in low position. Call light in reach. Side rails up X 1. Provided mb9 Education on: press call light if needing anything. Client placed on continuous cardiac and pulse oximetry monitoring. NIBP monitoring applied. Door closed. Noise minimized. Warm blanket given. Pillow given. 20:29 No provider procedures requiring assistance completed. mb9 21:00 Patient requests pain medication. mb9 21:[address] via wheelchair. mb9 21:24 CT Abd/Pelvis - IV Contrast Only In Process Unspecified. EDMS 21:25 Patient requests pain medication. mb9 22:11 Fletcher Reyez MD is Referral Physician. sb4 22:35 IV discontinued, intact, bleeding controlled, No redness/swelling at site. Pressure kd3 dressing applied. Administered Medications: 20:34 Drug: Famotidine IVP 20 mg IVP once; dilute with 10 mL 0.9% NaCl; give over 2 minutes mb9 Route: IVP; Site: left antecubital; 21:06 Follow up: Response: No adverse reaction mb9 20:34 Drug: Ondansetron IVP 4 mg IVP once; over 2 minutes Route: IVP; Site: left antecubital; mb9 21:06 Follow up: Response: No adverse reaction mb9 20:36 Drug: fentaNYL (PF) IVP 50 mcg IVP once Route: IVP; Site: left antecubital; mb9 21:06 Follow up: Response: No adverse reaction mb9 22:35 Follow up: Response: No adverse reaction kd3 20:37 Drug: NS 0.9% IV 1000 ml IV at 1 bolus Per protocol; 1000 mL bolus Route: IV; Rate: 1 mb9 bolus; Site: left antecubital; 22:36 Follow up: IV Status: Completed infusion; IV Intake: 1000ml kd3 20:37 Drug: TORadol - Ketorolac IVP 15 mg IVP once Route: IVP; Site: left antecubital; mb9 21:06 Follow up: Response: No adverse reaction mb9 22:35 Follow up: Response: No adverse reaction kd3 21:25 Drug: Ativan IVP 1 mg IVP once Route: IVP; Site: left antecubital; mb9 21:57 Follow up: Response: No adverse reaction mb9 22:34 Drug: Hydrocodone-Acetaminophen PO (7.5 mg-325 mg) 1 tabs PO once Route: PO; kd3 22:36 Follow up: Response: No adverse reaction kd3 Medication: 20:29 VIS not applicable for this client. mb9 Intake: 22:36 IV: 1000ml; Total: 1000ml. kd3 Outcome: 22:11 Discharge ordered by . sb4 22:35 Discharged to home ambulatory, kd3 22:35 Condition: stable 22:35 Discharge instructions given to patient, Instructed on discharge instructions, follow up and referral plans. Demonstrated understanding of instructions, follow-up care, medications, Prescriptions given X 2, 22:36 Patient left the ED. kd3 Signatures: Dispatcher [employer] EDAK Yoli Mario, Reg Alfred mr Tayla Pope RN RN aa5 Orlando Blanco Kyli, RN RN kd3 Fannie Storm, PA-C PA-C sb4 Yoli Flynn RN RN mb9 Marleni Altamirano Dandre Hair MD MD ec2 Corrections: (The following items were deleted from the chart) 18:25 18:22 BP 154 / 101; Pulse 90bpm; Resp 20bpm; Spontaneous; Pulse Ox 99% RA; Temp 97.5F aa5 Temporal; Pain 9/10, Adult; aa5 21:25 21:08 Pulse 84bpm; Resp 18bpm; Pulse Ox 100% RA; mb9 mb9 22:21 22:20 Hydrocodone-Acetaminophen PO (7.5 mg-325 mg) 1 tabs PO kd3 kd3
--- NOTE | 2024-01-06 22:12 | EDPHYS ---
Physician Documentation [facility] Name: Marquise Jhaveri Age: 43 yrs Sex: Male : 1980 Arrival Date: 01/06/2024 Time: 18:03 Bed 18 Private MD: ED Physician Dandre Juares HPI: 01/05 18:26 This 43 yrs old Male presents to ER via Ambulatory with complaints of sb4 Abdominal Pain, Anxiety. 18:26 The patient presents with abdominal pain in the upper abdomen. Onset: The sb4 symptoms/episode began/occurred 1 day(s) ago. The symptoms do not radiate. Associated signs and symptoms: Pertinent positives: nausea. The symptoms are described as burning. Modifying factors: The symptoms are alleviated by nothing, the symptoms are aggravated by nothing. Severity of pain: in the emergency department the pain is a 9 / 10. The patient has experienced similar episodes in the past, a few times, today's symptoms are similar. The patient has not recently seen a physician. Historical: - Allergies: 18:22 No Known Allergies; aa5 - PMHx: 18:22 Anxiety; herniated discs; Hypertension; Pancreatitis; aa5 - PSHx: 18:22 back surgery; Gastric Bypass; aa5 - Immunization history:: Adult Immunizations unknown. - Infectious Disease History:: Denies. - Social history:: Smoking status: Reported history of juuling and/or vaping. ROS: 18:26 Constitutional: Negative for fever, chills, and weight loss, sb4 18:26 Abdomen/GI: Positive for abdominal pain, nausea, diarrhea, 18:26 Psych: Positive for anxiety, 18:26 All other systems are negative, Exam: 18:26 Head/Face: Normocephalic, atraumatic. Eyes: Extra-ocular motions intact. Periorbital sb4 areas with no swelling, redness, or edema. ENT: Mucous membranes moist. Cardiovascular: Regular rate and rhythm with a normal S1 and S2. Respiratory: Lungs have equal breath sounds bilaterally, clear to auscultation and percussion. No rales, rhonchi or wheezes noted. No increased work of breathing, no retractions or nasal flaring. Skin: Warm, dry with normal turgor. Normal color with no rashes, no lesions, and no evidence of cellulitis. MS/ Extremity: Pulses equal, no cyanosis. Neurovascular intact. Full, normal range of motion. 18:26 Constitutional: The patient appears in no acute distress, alert, awake, 18:26 Abdomen/GI: Inspection: obese Bowel sounds: normal, Palpation: soft, mild abdominal tenderness, in the right upper quadrant and left upper quadrant, Vital Signs: 18:22 BP 154 / 101; Pulse 90; Resp 20 S; Temp 97.5(TE); Pulse Ox 99% on R/A; Weight 127.01 kg aa5 (R); Height 6 ft. 0 in. (R); Pain 9/10; 21:08 BP 177 / 108; Pulse 84; Resp 18; Pulse Ox 100% on R/A; mb9 22:34 BP 171 / 100; Pulse 88; Resp 17; Pulse Ox 98% on R/A; kd3 18:22 Body Mass Index 37.97 (127.01 kg, 182.88 cm) aa5 18:22 Pain Scale: Adult aa5 MDM: 18:19 Patient medically screened. sb4 22:10 Data reviewed: vital signs, nurses notes, lab test result(s), radiologic studies, and sb4 as a result, I will discharge patient. 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 01/05 18:26 Order name: CBC with Diff; Complete Time: 19:53 sb4 01/05 18:26 Order name: CMP; Complete Time: 20:08 sb4 01/05 18:26 Order name: Lipase; Complete Time: 20:08 sb4 01/05 18:26 Order name: CT Abd/Pelvis - IV Contrast Only; Complete Time: 22:00 sb4 01/05 18:26 Order name: IV Saline Lock; Complete Time: 19:37 sb4 01/05 18:26 Order name: Labs collected and sent; Complete Time: 19:37 sb4 Administered Medications: 20:34 Drug: Famotidine IVP 20 mg IVP once; dilute with 10 mL 0.9% NaCl; give over 2 minutes mb9 Route: IVP; Site: left antecubital; 21:06 Follow up: Response: No adverse reaction mb9 20:34 Drug: Ondansetron IVP 4 mg IVP once; over 2 minutes Route: IVP; Site: left antecubital; mb9 21:06 Follow up: Response: No adverse reaction mb9 20:36 Drug: fentaNYL (PF) IVP 50 mcg IVP once Route: IVP; Site: left antecubital; mb9 21:06 Follow up: Response: No adverse reaction mb9 22:35 Follow up: Response: No adverse reaction kd3 20:37 Drug: NS 0.9% IV 1000 ml IV at 1 bolus Per protocol; 1000 mL bolus Route: IV; Rate: 1 mb9 bolus; Site: left antecubital; 22:36 Follow up: IV Status: Completed infusion; IV Intake: 1000ml kd3 20:37 Drug: TORadol - Ketorolac IVP 15 mg IVP once Route: IVP; Site: left antecubital; mb9 21:06 Follow up: Response: No adverse reaction mb9 22:35 Follow up: Response: No adverse reaction kd3 21:25 Drug: Ativan IVP 1 mg IVP once Route: IVP; Site: left antecubital; mb9 21:57 Follow up: Response: No adverse reaction mb9 22:34 Drug: Hydrocodone-Acetaminophen PO (7.5 mg-325 mg) 1 tabs PO once Route: PO; kd3 22:36 Follow up: Response: No adverse reaction kd3 Disposition Summary: 01/06/24 22:11 Discharge Ordered Notes: Location: Home sb4 Problem: an ongoing problem sb4 Symptoms: have improved sb4 Condition: Stable sb4 Diagnosis - Upper abdominal pain, unspecified sb4 - Anxiety disorder, unspecified sb4 Followup: sb4 - With: Fletcher Reyez MD - When: As needed - Reason: Recheck today's complaints, Re-evaluation by your physician Discharge Instructions: - Discharge Summary Sheet sb4 - Chronic Pain, Adult sb4 - Abdominal Pain, Adult, [id number] sb4 - Managing Anxiety, Adult sb4 Forms: - Medication Reconciliation Form sb4 - Prescription Opioid Use sb4 - Patient Portal Instructions sb4 - Leadership Thank You Letter sb4 Prescriptions: - acetaminophen-codeine 300-30 mg Oral tablet - take 1 tablet ORAL route every 8 hours as needed for pain; 12 tablet; Refills: sb4 0, Product Selection Permitted - Zofran 4 mg Oral Tablet - take 1 tablet ORAL route every 12 hours As needed; 20 tablet; Refills: 0, sb4 Product Selection Permitted Signatures: Dispatcher [employer] Tayla Tesfaye RN RN aa5 Amy Low RN RN kd3 Fannie Storm PA-C PA-C sb4 Yoli Flynn RN RN mb9
[2024-01-06] MEDS ORDERED: HYDROCODONE/APAP 7.5/325 MG TAB ONE (22:14)
[2024-01-06 23:14] VITALS: BP 171/100; TEMP 97.5; O2SAT 98
== END 2024-01-06 22:36 | disposition home or self-care (01) ==
LOC: ER 18:03
DX: R10.11 Right upper quadrant pain (principal); R10.12 Left upper quadrant pain; F41.9 Anxiety disorder, unspecified
CPT/HCPCS: 96361; 85025; 36415; 83690; 80053; 74177; 96375; 96374; 99285; Q9967; J3010; J2405; J7030

== ENCOUNTER 2024-05-08 20:43 | Emergency (ER) | payer SELFPAY ==
[2024-05-08] MEDS ORDERED: PROMETHAZINE 25 MG TABLET ONE (21:20)
[2024-05-08] MEDS ORDERED: methocarbamoL 750 MG TAB ONE (21:21)
[2024-05-08] MEDS ORDERED: dexAMETHasone 10 MG/ML VIAL ONE (21:21)
[2024-05-08] MEDS ORDERED: KETOROLAC 30 MG/ML INJ ONE (21:21)
[2024-05-08] MEDS ORDERED: MORPHINE 2 MG/ML SYR ONE ×2 (21:22→22:32)
[2024-05-08] MEDS ORDERED: MORPHINE 4 MG/ML SYR ONE ×2 (21:22→22:32)
--- NOTE | 2024-05-09 00:34 | ER ---
Nurse's Notes [facility] Name: Marquise Jhaveri Age: 43 yrs Sex: Male : 1980 Arrival Date: 05/08/2024 Time: 20:43 Bed 19 Private MD: Diagnosis: Lumbago with sciatica, left side;Chronic Pancreatic pseudocyst Presentation: 05/08 20:54 Chief complaint: Patient states: started 1 week ago, left hip pain 10/. Was trying to ha1 lift something off ground and pain begin. Coronavirus screen: Client denies travel out of the [place] in the last 14 days. Ebola Screen: Patient negative for fever greater than or equal to 101.5 degrees Fahrenheit, and additional compatible Ebola Virus Disease symptoms Patient denies exposure to infectious person. Patient denies travel to an Ebola-affected area in the 21 days before illness onset. No symptoms or risks identified at this time. Initial Sepsis Screen: Does the patient meet any 2 criteria? HR > 90 bpm. Does the patient have a suspected source of infection? No. Patient's initial sepsis screen is negative. Risk Assessment: Do you want to hurt yourself or someone else? Patient reports no desire to harm self or others. Onset of symptoms was May 01, 2024. 20:54 Method Of Arrival: Ambulatory ha1 20:54 Acuity: ARNULFO 4 ha1 Triage Assessment: 20:55 General: Appears in no apparent distress. Behavior is calm, cooperative. Pain: ha1 Complains of pain in left hip Pain currently is 10 out of 10 on a pain scale. Pain began one week ago. EENT: No signs and/or symptoms were reported regarding the EENT system. Neuro: Level of Consciousness is awake, alert, obeys commands, Oriented to person, place, time, situation. Cardiovascular: Patient's skin is warm and dry. Respiratory: Airway is patent Respiratory effort is even, unlabored, Respiratory pattern is regular, symmetrical. GI: No signs and/or symptoms were reported involving the gastrointestinal system. Abdomen is flat, non-distended. : No signs and/or symptoms were reported regarding the genitourinary system. Derm: No signs and/or symptoms reported regarding the dermatologic system. Musculoskeletal: Reports pain in left hip since one week ago. Pain is 10 out of 10 on a pain scale. Historical: - Allergies: 20:55 No Known Allergies; ha1 - Home Meds: 05/09 00:49 hydrocodone-acetaminophen 10-325 mg Oral tablet [Active]; lisinopril 10 mg Oral tab 1 kj2 tab twice a day [Active]; - PMHx: 05/08 20:55 Anxiety; herniated discs; Hypertension; Pancreatitis; ha1 - PSHx: 20:55 Gastric Bypass; back surgery; ha1 - Immunization history:: Flu vaccine is not up to date. - Infectious Disease History:: Denies. - Social history:: Smoking status: Reported history of juuling and/or vaping. Patient/guardian denies using alcohol. - Family history:: not pertinent. Screenin:00 [facility] ED Fall Risk Assessment (Adult) History of falling in the last 3 months, kj2 including since admission No falls in past 3 months (0 pts) Confusion or Disorientation No (0 pts) Intoxicated or Sedated No (0 pts) Impaired Gait No (0 pts) Mobility Assist Device Used No (0 pt) Altered Elimination No (0 pt) Score/Fall Risk Level 0 - 2 = Low Risk Maintained a safe environment, Hourly rounding (assess needs \T\ fall precautionary measures) done. Abuse screen: Denies threats or abuse. Denies injuries from another. Nutritional screening: No deficits noted. Tuberculosis screening: No symptoms or risk factors identified. Assessment: 21:00 General: Appears in no apparent distress. uncomfortable. Pain: Complains of pain in kj2 left hip Pain currently is 10 out of 10 on a pain scale. Neuro: Level of Consciousness is awake, alert, obeys commands, Oriented to person, place, time, situation. Cardiovascular: Patient's skin is warm and dry. Respiratory: Airway is patent Respiratory effort is even, unlabored. GI: No signs and/or symptoms were reported involving the gastrointestinal system. : No signs and/or symptoms were reported regarding the genitourinary system. 21:59 Reassessment: Patient and/or family updated on plan of care and expected duration. Pain kj2 level reassessed. Patient is alert, oriented x 3, equal unlabored respirations, skin warm/dry/pink. 22:40 Reassessment: Patient and/or family updated on plan of care and expected duration. Pain kj2 level reassessed. Patient is alert, oriented x 3, equal unlabored respirations, skin warm/dry/pink. 05/09 00:09 Reassessment: Patient appears in no apparent distress at this time. Patient and/or kj2 family updated on plan of care and expected duration. Pain level reassessed. Patient is alert, oriented x 3, equal unlabored respirations, skin warm/dry/pink. 00:50 Reassessment: Patient appears in no apparent distress at this time. Patient is alert, kj2 oriented x 3, equal unlabored respirations, skin warm/dry/pink. Vital Signs: 05/08 20:53 BP 176 / 111; Pulse 111; Resp 19; Temp 97.5(TE); Pulse Ox 100% on R/A; MAP 128 mmHg; ha1 Weight 117.03 kg; Height 6 ft. 0 in. ; Pain 04/30; 22:00 BP 153 / 102; Pulse 74; Resp 18; Temp 97.9; Pulse Ox 99% on R/A; kj2 22:40 BP 153 / 98; Pulse 76; Resp 18; Temp 98; Pulse Ox 99% ; kj2 05/09 00:50 BP 148 / 88; Pulse 72; Resp 18; Temp 97.9; Pulse Ox 100% ; kj2 05/08 20:53 Body Mass Index 34.99 (117.03 kg, 182.88 cm) ha1 05/08 20:53 Pain Scale: Adult ha1 [place] Coma Score: 19:13 Eye Response: spontaneous(4). Motor Response: obeys commands(6). Verbal Response: sp4 oriented(5). Total: 15. ED Course: 05/08 20:45 Patient arrived in ED. jj6 20:45 Fernie Kay MD is Attending Physician. sp4 20:55 Triage completed. ha1 20:55 Arm band placed on right wrist. ha1 21:00 Patient has correct armband on for positive identification. Bed in low position. Call kj2 light in reach. Provided Education on: Provided Education on: call light. 21:15 Jessica Blanco, ANAHY is Primary Nurse. kj2 23:14 CT Abd/Pelvis - Without Contrast In Process Unspecified. EDMS 05/09 00:34 Darrell Galvan MD is Referral Physician. sp4 00:50 Patient did not have IV access during this emergency room visit. kj2 00:50 No provider procedures requiring assistance completed. kj2 Administered Medications: 05/08 21:37 Drug: Ketorolac IM 60 mg IM once Route: IM; Site: left gluteus; kj2 22:38 Follow up: Response: No adverse reaction kj2 21:37 Drug: Promethazine PO 25 mg PO once Route: PO; kj2 22:38 Follow up: Response: No adverse reaction kj2 21:38 Drug: morphine IM 6 mg IM once Route: IM; Site: right gluteus; kj2 22:39 Follow up: Response: Pain is unchanged, physician notified kj2 21:38 Drug: Dexamethasone IM 10 mg IM once Route: IM; Site: left vastus lateralis; kj2 22:39 Follow up: Response: No adverse reaction kj2 21:38 Drug: Methocarbamol PO 1500 mg PO once Route: PO; kj2 22:38 Follow up: Response: No adverse reaction kj2 22:38 Drug: morphine IM 6 mg IM once Route: IM; Site: left gluteus; kj2 05/09 00:48 Follow up: Response: No adverse reaction; Pain is decreased kj2 01:00 Drug: Ibuprofen PO 800 mg PO once Route: PO; kj2 01:00 Follow up: Response: Medication administered at discharge. kj2 01:01 Drug: Carbon PO 5 mg-325 mg 2 tabs PO once Route: PO; kj2 01:01 Follow up: Response: Medication administered at discharge. kj2 Medication: 05/08 21:58 VIS not applicable for this client. kj2 Outcome: 05/09 00:34 Discharge ordered by . sp4 00:50 Discharged to home ambulatory, kj2 00:50 Condition: stable 00:50 Discharge instructions given to patient, Instructed on discharge instructions, follow up and referral plans. medication usage, Demonstrated understanding of instructions, follow-up care, medications, Prescriptions given X 4, 01:02 Patient left the ED. kj2 Signatures: Dispatcher [employer] EDMS Renae Avilez jj6 Xuan Hilario, RN RN ha1 Fernie Kay MD MD sp4 Jessica Blanco RN RN kj2
--- NOTE | 2024-05-09 00:34 | EDPHYS ---
Physician Documentation [facility] Name: Marquise Jhaveri Age: 43 yrs Sex: Male : 1980 Arrival Date: 05/08/2024 Time: 20:43 Bed 19 Private MD: ED Physician Fernie Kay HPI: 05/08 20:45 This 43 yrs old Male presents to ER via Unassigned with complaints of Hip Pain.sp4 05/09 19:13 43-year-old male presents with left lower back pain left buttock left leg pain. sp4 Historical: - Allergies: 05/08 20:55 No Known Allergies; ha1 - Home Meds: 05/09 00:49 hydrocodone-acetaminophen 10-325 mg Oral tablet [Active]; lisinopril 10 mg Oral tab 1 kj2 tab twice a day [Active]; - PMHx: 05/08 20:55 Anxiety; herniated discs; Hypertension; Pancreatitis; ha1 - PSHx: 20:55 Gastric Bypass; back surgery; ha1 - Immunization history:: Flu vaccine is not up to date. - Infectious Disease History:: Denies. - Social history:: Smoking status: Reported history of juuling and/or vaping. Patient/guardian denies using alcohol. - Family history:: not pertinent. ROS: 05/09 19:13 Constitutional: Negative for fever, chills, and weight loss, positive for left leg pain sp4 left buttock pain , left back pain All other systems are negative, Exam: 19:13 Constitutional: This is a well developed, well nourished patient who is awake, alert, sp4 and in no acute distress. Head/Face: Normocephalic, atraumatic. Eyes: Pupils equal round and reactive to light, extra-ocular motions intact. Lids and lashes normal. Conjunctiva and sclera are not injected. Cornea within normal limits. Periorbital areas with no swelling, redness, or edema. ENT: Nares patent. No nasal discharge, no septal abnormalities noted. Tympanic membranes are normal and external auditory canals are clear. Oropharynx with no redness, swelling, or masses, exudates, or evidence of obstruction, uvula midline. Mucous membranes moist. Neck: Trachea midline, no thyromegaly or masses palpated, and no cervical lymphadenopathy. Supple, full range of motion without nuchal rigidity, or vertebral point tenderness. Chest/axilla: Normal chest wall appearance and motion. Nontender with no deformity. No lesions are appreciated. Cardiovascular: Regular rate and rhythm with a normal S1 and S2. No gallops, murmurs, or rubs. Normal PMI, no JVD. No pulse deficits. Respiratory: Lungs have equal breath sounds bilaterally, clear to auscultation and percussion. No rales, rhonchi or wheezes noted. No increased work of breathing, no retractions or nasal flaring. Abdomen/GI: Soft, with normal bowel sounds. No distension or tympany. No guarding or rebound. No evidence of tenderness throughout. Back: No spinal tenderness. No costovertebral tenderness. Skin: Warm, dry with normal turgor. Normal color with no rashes, no lesions, and no evidence of cellulitis. MS/ Extremity: Pulses equal, no cyanosis. Neurovascular intact. Full, normal range of motion. Neuro: Awake and alert, GCS 15, oriented to person, place, time, and situation. Cranial nerves II-XII grossly intact. Motor strength 5/5 in all extremities. Sensory grossly intact. Psych: Awake, alert, with orientation to person, place and time. Behavior, mood, and affect are within normal limits Vital Signs: 05/08 20:53 BP 176 / 111; Pulse 111; Resp 19; Temp 97.5(TE); Pulse Ox 100% on R/A; MAP 128 mmHg; ha1 Weight 117.03 kg; Height 6 ft. 0 in. ; Pain 04/30; 22:00 BP 153 / 102; Pulse 74; Resp 18; Temp 97.9; Pulse Ox 99% on R/A; kj2 22:40 BP 153 / 98; Pulse 76; Resp 18; Temp 98; Pulse Ox 99% ; kj2 05/09 00:50 BP 148 / 88; Pulse 72; Resp 18; Temp 97.9; Pulse Ox 100% ; kj2 05/08 20:53 Body Mass Index 34.99 (117.03 kg, 182.88 cm) ha1 05/08 20:53 Pain Scale: Adult ha [place] Coma Score: 19:13 Eye Response: spontaneous(4). Motor Response: obeys commands(6). Verbal Response: sp4 oriented(5). Total: 15. MDM: 05/08 20:54 Medical Screening Exam initiated sp4 05/09 00:33 ED course: EXAM: CTAbdomen and Pelvis Without Intravenous Contrast CLINICAL HISTORY: sp4 The patient is 43 years old and is Male; back pain, pelvic pain TECHNIQUE: Axial computed tomography images of the abdomen and pelvis without intravenous contrast. Sagittal and coronal reformatted images were created and reviewed. This CT exam was performed using one or more of the following dose reduction techniques: automated exposure control, adjustment of the mA and/or kV according to patient size, and/or use of iterative reconstruction technique. COMPARISON: CT report January 15, 2024, images not available for review. FINDINGS: LUNG BASES: Unremarkable. No mass. No consolidation. ABDOMEN: LIVER: The liver is enlarged and homogeneous. GALLBLADDER AND BILE DUCTS: The gallbladder is distended. No calcified gallstones or ductal dilatation is seen. PANCREAS: A 7.2 x 6.3 cm cystic collection at the tail the pancreas is present. Mild peripancreatic inflammation/stranding is present. No ductal dilation. SPLEEN: Unremarkable. ADRENALS: Unremarkable. No mass. KIDNEYS AND URETERS: No obstructing stones. No hydronephrosis. No perinephric fluid. STOMACH AND BOWEL: Postsurgical change consistent with a gastric bypass is noted. The small bowel is relatively normal in caliber. Stool is present throughout the colon. Scattered colonic diverticula are noted without surrounding inflammation. There is no evidence of obstruction. PELVIS: APPENDIX: The appendix is normal in caliber without surrounding inflammation. BLADDER: The bladder is moderately distended. No stones. REPRODUCTIVE: Unremarkable as visualized. ABDOMEN and PELVIS: INTRAPERITONEAL SPACE: Unremarkable. No free air. No significant fluid collection. BONES/JOINTS: Degenerative changes spine is present. There is no acute fracture. SOFT TISSUES: There are small bilateral fat containing inguinal hernias. Small fat-containing umbilical hernia is present. VASCULATURE: Unremarkable. No abdominal aortic aneurysm. LYMPH NODES: Unremarkable. No enlarged lymph nodes. IMPRESSION: Findings suggest mild acute pancreatitis with large pseudocyst of the tail the pancreas. Correlation with prior imaging would be useful to assess stability. Electronically signed by: Cici Restrepo MD 05/09/2024 . 19:13 Differential diagnosis: hip fracture, bursitis, arthritis, strain. Data reviewed: vital sp4 signs, nurses notes, old medical records, radiologic studies, CT scan. Consideration of Admission/Observation Escalation of care including admission/observation considered. ED course: Will discharge home after medications. Pancreatic pseudocyst is chronic.. 05/08 22:23 Order name: CT Abd/Pelvis - Without Contrast sp4 Administered Medications: 05/08 21:37 Drug: Ketorolac IM 60 mg IM once Route: IM; Site: left gluteus; kj2 22:38 Follow up: Response: No adverse reaction kj2 21:37 Drug: Promethazine PO 25 mg PO once Route: PO; kj2 22:38 Follow up: Response: No adverse reaction kj2 21:38 Drug: morphine IM 6 mg IM once Route: IM; Site: right gluteus; kj2 22:39 Follow up: Response: Pain is unchanged, physician notified kj2 21:38 Drug: Dexamethasone IM 10 mg IM once Route: IM; Site: left vastus lateralis; kj2 22:39 Follow up: Response: No adverse reaction kj2 21:38 Drug: Methocarbamol PO 1500 mg PO once Route: PO; kj2 22:38 Follow up: Response: No adverse reaction kj2 22:38 Drug: morphine IM 6 mg IM once Route: IM; Site: left gluteus; kj2 05/09 00:48 Follow up: Response: No adverse reaction; Pain is decreased kj2 01:00 Drug: Ibuprofen PO 800 mg PO once Route: PO; kj2 01:00 Follow up: Response: Medication administered at discharge. kj2 01:01 Drug: [place] PO 5 mg-325 mg 2 tabs PO once Route: PO; kj2 01:01 Follow up: Response: Medication administered at discharge. kj2 Disposition Summary: 05/09/24 00:34 Discharge Ordered Problem: new sp4 Symptoms: have improved sp4 Condition: Stable sp4 Diagnosis - Lumbago with sciatica, left side sp4 - Chronic Pancreatic pseudocyst sp4 Followup: sp4 - With: Darrell Galvan MD - When: 7 - 10 days - Reason: Recheck today's complaints Discharge Instructions: - Discharge Summary Sheet sp4 - Sciatica sp4 Forms: - Patient Portal Instructions sp4 Prescriptions: - acetaminophen-codeine 300-60 mg Oral tablet - take 1 tablet ORAL route every 8 hours PRN pain; 20 tablet; Refills: 0, Product sp4 Selection Permitted - naproxen 500 mg Oral tablet - take 1 tablet ORAL route every 12 hours PRN pain; 60 tablet; Refills: 0, sp4 Product Selection Permitted - Prednisone 20 mg Oral Tablet - take 2 tablets ORAL route once daily for 5 days; 10 tablet; Refills: 0, Product sp4 Selection Permitted - methocarbamol 750 mg Oral tablet - take 2 tablets ORAL route 4 times per day for 10 days PRN pain; 60 tablet; sp4 Refills: 0, Product Selection Permitted Signatures: Dispatcher [employer] Xuan Caban, RN RN ha1 Fernie Kay MD MD sp4 Jessica Blanco RN RN kj2
[2024-05-09] MEDS ORDERED: IBUPROFEN 400 MG TAB ONE (00:57)
[2024-05-09] MEDS ORDERED: HYDROCODONE/APAP 5/325 MG TAB ONE (00:57)
--- NOTE | 2024-05-09 06:24 | RAD REPORT ---
EXAM: CT Abdomen and Pelvis Without Intravenous Contrast CLINICAL HISTORY: The patient is 43 years old and is Male; back pain, pelvic pain TECHNIQUE: Axial computed tomography images of the abdomen and pelvis without intravenous contrast. Sagittal and coronal reformatted images were created and reviewed. This CT exam was performed using one or more of the following dose reduction techniques: automated exposure control, adjustment of the m A and/or kV according to patient size, and/or use of iterative reconstruction technique. COMPARISON: CT report January 15, 2024, images not available for review. FINDINGS: LUNG BASES: Unremarkable. No mass. No consolidation. ABDOMEN: LIVER: The liver is enlarged and homogeneous. GALLBLADDER AND BILE DUCTS: The gallbladder is distended. No calcified gallstones or ductal dilat ation is seen. PANCREAS: A 7.2 x 6.3 cm cystic collection at the tail the pancreas is present. Mild peripancreat ic inflammation/stranding is present. No ductal dilation. SPLEEN: Unremarkable. ADRENALS: Unremarkable. No mass. KIDNEYS AND URETERS: No obstructing stones. No hydronephrosis. No perinephric fluid. STOMACH AND BOWEL: Postsurgical change consistent with a gastric bypass is noted. The small bowel is relatively normal in caliber. Stool is present throughout the colon. Scattered colonic diverticula are noted without surrounding inflammation. There is no evidence of obstruction. PELVIS: APPENDIX: The appendix is normal in caliber without surrounding inflammation. BLADDER: The bladder is moderately distended. No stones. REPRODUCTIVE: Unremarkable as visualized. ABDOMEN and PELVIS: INTRAPERITONEAL SPACE: Unremarkable. No free air. No significant fluid collection. BONES/JOINTS: Degenerative changes spine is present. There is no acute fracture. SOFT TISSUES: There are small bilateral fat containing inguinal hernias. Small fat-containing u mbilical hernia is present. VASCULATURE: Unremarkable. No abdominal aortic aneurysm. LYMPH NODES: Unremarkable. No enlarged lymph nodes. IMPRESSION: Findings suggest mild acute pancreatitis with large pseudocyst of the tail the pancreas. Correlatio n with prior imaging would be useful to assess stability. Electronically signed by: Cici Restrepo MD 05/09/2024 12:19 AM CDT RP Due to temporary technical issues with the PACS/[employer] reporting system, reports are being michael d by the in-house radiologist without review as a courtesy to ensure prompt reporting the interpreting radiologist is fully responsible for the content of the report. Transcribed Date/Time: 05/09/2024 6:24 AM
[2024-05-09 06:32] VITALS: BP 148/88; TEMP 97.9; O2SAT 100
== END 2024-05-09 01:02 | disposition home or self-care (01) ==
LOC: ER 20:43
DX: M54.42 Lumbago with sciatica, left side (principal); K86.3 Pseudocyst of pancreas; I10 Essential (primary) hypertension; F41.9 Anxiety disorder, unspecified
CPT/HCPCS: 74176; 96372; 99284; J1100; J2270; Q0169

== ENCOUNTER 2024-05-14 15:58 | Emergency (ER) | payer SELFPAY ==
[2024-05-14 18:45] LABS: Calcium Oxalate Crystals- Ur Few /HPF (None Seen); Specific Gravity 1.028 (1.005-1.030); Sqamous Epithelial <5 /HPF (None Seen); Urine Bacteria <20 /HPF (<20); Urine Bilirubin NEGATIVE (Negative); Urine Blood Negative (Negative); Urine Clarity Clear (Clear); Urine Color Light-Yellow (Yellow); Urine Culture Reflex Order NOT NEEDED; Urine Glucose TRACE (Negative); Urine Ketones NEGATIVE (Negative); Urine Microscopic Reflex YN ORDER UMIC; Urine Mucus Slight /HPF (None Seen); Urine Nitrite NEGATIVE (Negative); Urine Protein NEGATIVE (Negative); Urine RBC <5 /HPF (None Seen); Urine Urobilinogen Normal (Normal); Urine WBC <5 /HPF (<5)
[2024-05-14 18:51] LABS: Absolute Lymphocytes (CBC) 0.9 K/uL (0.7-4.9); Absolute Monocytes 0.4 K/uL (0.1-1.3); Absolute Neutrophil 4.3 K/uL (1.8-8.0); Basophils % 0.6 % (0-1.3); Eosinophils % 0.4 % (0-4.4); Hematocrit 34.7 % (39.6-49.0); Hemoglobin 11.2 g/dL (13.6-17.9); Lymphocytes % 16.1 % (15.3-44.8); MCH 24.8 pg (27.0-35.0); MCHC 32.2 g/dL (32.0-36.0); MCV 77.3 fL (80-100); MPV 7.5 fL (7.6-11.3); Monocytes % 7.4 % (3.3-12.3); Neutrophils % 75.5 % (41.7-73.7); Nucleated Red Blood Cells % 0.2 % (0-0); Platelets 168 thou/uL (152-406); RBC Red Blood Cell Count 4.49 M/uL (4.33-5.43); Red Cell Distribution Width 17.9 % (12.1-15.2)
[2024-05-14] MEDS ORDERED: ONDANSETRON 4 MG/2 ML VIAL ONE (19:24)
[2024-05-14] MEDS ORDERED: NA CHLORIDE 0.9% 1,000 ML ONE (19:25)
[2024-05-14] MEDS ORDERED: FAMOTIDINE 20 MG/2 ML VIAL IV ONE (19:25)
[2024-05-14] MEDS ORDERED: MORPHINE 4 MG/ML SYR ONE (19:25)
[2024-05-14] MEDS ORDERED: KETOROLAC 30 MG/ML INJ ONE (19:25)
[2024-05-14] MEDS ORDERED: METHOCARBAMOL 1,000 MG/10 ML VIAL ONE (20:30)
[2024-05-14] MEDS ORDERED: NA CHLORIDE 0.9% 100 ML ONE (20:30)
[2024-05-14 20:31] LABS: Albumin 3.1 g/dL (3.4-5.0); Albumin/Globulin Ratio 1.1 (1.1-1.8); Anion Gap 6.7 mEq/L (5.0-15.0); Bilirubin Total 0.3 mg/dL (0.2-1.0); Globulin 2.9 g/dL (2.3-3.5); Potassium 2.7 mEq/L (3.5-5.1)
--- NOTE | 2024-05-14 21:20 | RAD REPORT ---
EXAMINATION: US LEFT LOWER EXTREMITY VENOUS DOPPLER CLINICAL INDICATION: [facility] MA[facility] left leg PAIN Bed Name: 25 Y TECHNIQUE: Complete bilateral duplex sonography of the LEFT lower extremity veins was performed. The examination included compression for vein patency, color Doppler imaging and flow augmentation in response to distal compression of the distal external iliac, common femoral, femoral, popliteal, tibi al, and great and small saphenous veins. COMPARISON: No prior exam. FINDINGS: Duplex sonography testing of the veins of the LEFT lower extremity was performed. Color flow imaging shows all veins to be compressible with [id number] color filling. Pulsatile and phasic flow is present within all lower extremity deep and superficial veins examined. IMPRESSION: No evidence of deep venous thrombosis.
--- NOTE | 2024-05-14 22:12 | RAD REPORT ---
EXAMINATION: CT Abdomen Pelvis W Contrast CLINICAL INDICATION: Male, 43 years old. ABD PAIN TECHNIQUE: CT abdomen and pelvis was performed, after the administration of IV contrast, as per [facility] protocol. Axial, sagittal and coronal reconstructions were obtained. One or more of the following dose reduction techniques were used: Automated exposure control, adjustment of the mA and k V according to patient size, and iterative reconstruction. Unless otherwise specified, incidental findings do not require dedicated imaging follow-up. COMPARISON: 01/15/2024 FINDINGS: LOWER CHEST: The visualized lung bases are clear. LIVER: Normal in size and contour. No focal lesion. BILIARY SYSTEM: No suspicious abnormalities. SPLEEN: Normal size. No focal lesion. PANCREAS: No suspicious mass or ductal dilation. Mild fat stranding along the uncinate process, stabl e. 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 ADRENALS: Normal; no mass. KIDNEYS: Normal size and contour. No hydronephrosis. URINARY BLADDER: Unremarkable. GASTROINTESTINAL TRACT: No evidence of free air, significant intra-abdominal free fluid, bowel obstru ction or abscess. Sequelae of Don-en-Y gastric bypass APPENDIX: Normal appendix. LYMPH NODES: No lymphadenopathy. MUSCULOSKELETAL: No acute or suspicious osseous abnormality. ADDITIONAL FINDINGS: Somewhat attenuated appearance of the portal vein near the junction with the SMV . 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 IMPRESSION: Stable mild fat stranding along the uncinate process of the pancreas, could relate to sequelae of rem ote or mild/resolving recurrent pancreatitis. Interval increase in size of pancreatic tail cyst measuring up to 7.3 cm, most suggestive of a pseudo cyst. Other stable findings as above.
[2024-05-14] MEDS ORDERED: GABAPENTIN 300 MG CAP ONE (22:57)
[2024-05-14] MEDS ORDERED: POTASSIUM 25 MEQ EFFERV TAB ONE (22:58)
[2024-05-14] MEDS ORDERED: HYDROCODONE/APAP 10/325 TAB ONE (22:58)
--- NOTE | 2024-05-14 22:58 | ER ---
Nurse's Notes [facility] Name: Marquise Jhaveri Age: 43 yrs Sex: Male : 1980 Arrival Date: 05/14/2024 Time: 15:58 Bed 23 Private MD: Diagnosis: Upper abdominal pain, unspecified;Sciatica, left side Presentation: 05/14 16:14 Chief complaint: Patient states: LEFT HIP PAIN RADIATING DOWN LEG SINCE SATURDAY STATES db SEEN SATURDAY BY DR. Minaya GIVEN NSAIDS AND STEROIDS AND DX WITH SCIATICA. TODAY PAIN HAS NOT STOPPED. Coronavirus screen: Client denies travel out of the [place] in the last 14 days. At this time, the client does not indicate any symptoms associated with coronavirus-19. Ebola Screen: Patient negative for fever greater than or equal to 101.5 degrees Fahrenheit, and additional compatible Ebola Virus Disease symptoms Patient denies exposure to infectious person. Patient denies travel to an Ebola-affected area in the 21 days before illness onset. No symptoms or risks identified at this time. Initial Sepsis Screen: Does the patient meet any 2 criteria? No. Patient's initial sepsis screen is negative. Does the patient have a suspected source of infection? No. Patient's initial sepsis screen is negative. Risk Assessment: Do you want to hurt yourself or someone else? Patient reports no desire to harm self or others. Onset of symptoms was May 14, 2024. 16:14 Method Of Arrival: Ambulatory db 16:14 Acuity: ARNULFO 3 db Triage Assessment: 16:16 General: Appears in no apparent distress. comfortable, Behavior is calm, cooperative. db Pain: Complains of pain in abdomen and left leg. Neuro: Level of Consciousness is awake, alert, obeys commands, Oriented to person, place, time, situation. Respiratory: Airway is patent Respiratory effort is even, unlabored, Respiratory pattern is regular, symmetrical. GI: Reports nausea. Historical: - Allergies: 16:16 No Known Allergies; db - Home Meds: 20:01 lisinopril 20 mg oral tablet daily [Active]; hydrocodone-acetaminophen 10-325 mg Oral tl4 tablet [Active]; - PMHx: 16:16 herniated discs; Hypertension; Pancreatitis; Anxiety; db - PSHx: 16:16 back surgery; Gastric Bypass; db - Immunization history:: Adult Immunizations unknown. - Infectious Disease History:: Denies. - Social history:: Smoking status: Reported history of juuling and/or vaping. Screenin:02 [facility] ED Fall Risk Assessment (Adult) History of falling in the last 3 months, tl4 including since admission No falls in past 3 months (0 pts) Confusion or Disorientation No (0 pts) Intoxicated or Sedated No (0 pts) Impaired Gait No (0 pts) Mobility Assist Device Used No (0 pt) Altered Elimination No (0 pt) Score/Fall Risk Level 0 - 2 = Low Risk Oriented to surroundings, Maintained a safe environment, Educated pt \T\ family on fall prevention, incl call for assistance when getting out of bed, Assessed \T\ reinforced patient's understanding of fall precautions. Abuse screen: Denies threats or abuse. Denies injuries from another. Nutritional screening: No deficits noted. Tuberculosis screening: No symptoms or risk factors identified. Assessment: 19:57 General: Appears in no apparent distress. Behavior is agitated. Pain: Complains of pain tl4 in abdomen and left leg. Neuro: Level of Consciousness is awake, alert, obeys commands, Oriented to person, place, time, situation, Moves all extremities. Full function Gait is steady, Speech is normal, Facial symmetry appears normal. Cardiovascular: Denies chest pain, diaphoresis, fatigue, lightheadedness, palpitations, shortness of breath, syncope, Capillary refill < 3 seconds Patient's skin is warm and dry. Respiratory: Airway is patent Respiratory effort is even, unlabored, Respiratory pattern is regular, symmetrical, Breath sounds are clear bilaterally. Denies cough, shortness of breath. GI: Reports upper abdominal pain. : No signs and/or symptoms were reported regarding the genitourinary system. EENT: No signs and/or symptoms were reported regarding the EENT system. Derm: No signs and/or symptoms reported regarding the dermatologic system. Musculoskeletal: Reports pain in left leg. Vital Signs: 16:14 BP 173 / 112; Pulse 78; Resp 18; Temp 98.4; Pulse Ox 99% ; Weight 113.4 kg; Height 6 db ft. 0 in. ; Pain 9/10; 19:34 BP 180 / 102; Pulse 66; Resp 18; Pulse Ox 100% on R/A; Pain 8/10; tl4 20:39 BP 175 / 99; Pulse 64; Resp 16; Pulse Ox 100% ; tl4 21:44 BP 175 / 98; Pulse 88; Resp 16; Pulse Ox 98% on R/A; tl4 23:00 BP 169 / 95; Pulse 75; Resp 18; Temp 97.6(O); Pulse Ox 99% on R/A; tl4 16:14 Body Mass Index 33.91 (113.40 kg, 182.88 cm) db 16:14 Pain Scale: Adult db 19:34 Pain Scale: Adult tl4 ED Course: 16:01 Patient arrived in ED. mr 16:01 Adalid Srivastava PA is PHCP. cp 16:01 Adalid Capone MD is Attending Physician. cp 16:16 Triage completed. db 16:16 Arm band placed on Patient placed in waiting room. db 19:20 Gopi Singh, RN is Primary Nurse. tl4 19:46 Lab(s) recollected, by me, sent to lab. Inserted saline lock: 20 gauge in right tl4 antecubital area, using aseptic technique. Blood collected. Flushed with 10 mL NS. 20:03 Patient has correct armband on for positive identification. Bed in low position. Call tl4 light in reach. Side rails up X2. Provided Education on: ed process, call wong. Client placed on continuous cardiac and pulse oximetry monitoring. NIBP monitoring applied. Door closed. Noise minimized. Lights dimmed. Moved to private room. Warm blanket given. 20:03 No provider procedures requiring assistance completed. tl4 20:24 Radiology exam delayed due to lab results not completed at this time. (BUN/Creatinine). sj 20:25 US Extremity Venous Unilateral Ltd In Process Unspecified. EDMS 21:14 CT Abd/Pelvis - IV Contrast Only In Process Unspecified. EDMS 22:57 Reggie Nobles MD is Referral Physician. cp 23:15 IV discontinued, intact, bleeding controlled, No redness/swelling at site. Pressure tl4 dressing applied. Administered Medications: 19:35 Drug: TORadol - Ketorolac IVP 15 mg IVP once Route: IVP; Site: right antecubital; tl4 20:38 Follow up: Response: No adverse reaction; Pain is decreased tl4 19:35 Drug: NS 0.9% IV 1000 ml IV at 1 bolus Per protocol; to be given as a bolus over 60 tl4 minutes Route: IV; Rate: 1 bolus; Site: right antecubital; Delivery: Primary tubing; 20:45 Follow up: Response: No adverse reaction; IV Status: Completed infusion; IV Intake: tl4 1000ml 19:36 Drug: Ondansetron IVP 4 mg IVP once; over 2 minutes Route: IVP; Infused Over: 2 mins; tl4 Site: right antecubital; 20:38 Follow up: Response: No adverse reaction tl4 19:38 Drug: Famotidine IVP 20 mg IVP once; dilute with 10 mL 0.9% NaCl; give over 2 minutes tl4 Route: IVP; Infused Over: 2 mins; Site: right antecubital; 20:38 Follow up: Response: No adverse reaction tl4 19:42 Drug: morphine IVP or IV 4 mg IVP once over 4 mins Route: IVP; Infused Over: 4 mins; tl4 Site: right antecubital; 20:38 Follow up: Response: No adverse reaction; Pain is decreased tl4 20:37 Drug: Methocarbamol IVPB 1 grams IVPB once over 1 hrs; (mix in NS 100 mL) Route: IVPB; tl4 Infused Over: 1 hrs; Site: right antecubital; 21:44 Follow up: Response: No adverse reaction; Pain is decreased; IV Status: Completed tl4 infusion; IV Intake: 100ml 23:10 Drug: Potassium PO Effervescent Tablet 50 mEq PO once; dissolve in 4 ounces of water or tl4 juice Route: PO; 23:14 Follow up: Response: No adverse reaction tl4 23:10 Drug: Potassium PO Effervescent Tablet 25 mEq PO once; dissolve in 4 ounces of water or tl4 juice Route: PO; 23:15 Follow up: Response: No adverse reaction tl4 23:10 Drug: HYDROcodone-acetaminophen PO 10 mg-325 mg 1 tabs PO once Route: PO; tl4 23:15 Follow up: Response: No adverse reaction tl4 23:10 Drug: Neurontin PO 300 mg PO once Route: PO; tl4 23:15 Follow up: Response: No adverse reaction tl4 Medication: 20:02 VIS not applicable for this client. tl4 Intake: 20:45 IV: 1000ml; Total: 1000ml. tl4 21:44 IV: 100ml; Total: 1100ml. tl4 Outcome: 22:57 Discharge ordered by . cp 23:15 Discharged to home ambulatory, with family, tl4 23:15 Condition: stable 23:15 Discharge instructions given to patient, Instructed on discharge instructions, follow up and referral plans. medication usage, Demonstrated understanding of instructions, follow-up care, medications, Prescriptions given X 2, 23:16 Patient left the ED. tl4 Signatures: Dispatcher [employer] EDMS Yoli Mario, Reg Reg [place] Garcia sj Adalid Srivastava PA PA cp Benton, Danielle, RN RN db Gopi Singh RN RN tl4
--- NOTE | 2024-05-14 22:58 | EDPHYS ---
Physician Documentation [facility] Name: Marquise Jhaveri Age: 43 yrs Sex: Male : 1980 Arrival Date: 05/14/2024 Time: 15:58 Bed 23 Private MD: ED Physician Adalid Capone HPI: 05/14 17:55 This 43 yrs old Male presents to ER via Ambulatory with complaints of Hip cp Pain, Leg Pain. 17:55 The patient or guardian reports pain. cp 17:55 since last week. The complaints affect the left hip and left leg. cp 17:55 Associated signs and symptoms: Pertinent positives: abdominal pain, epigastric area cp concerning for pancreatitis, Pertinent negatives: chest pain, diarrhea, dysuria, fever, incontinence, vomiting, weakness, numbness. Severity of symptoms: in the emergency department the symptoms are unchanged, despite home interventions. Historical: - Allergies: 16:16 No Known Allergies; db - Home Meds: 20:01 lisinopril 20 mg oral tablet daily [Active]; hydrocodone-acetaminophen 10-325 mg Oral tl4 tablet [Active]; - PMHx: 16:16 herniated discs; Hypertension; Pancreatitis; Anxiety; db - PSHx: 16:16 back surgery; Gastric Bypass; db - Immunization history:: Adult Immunizations unknown. - Infectious Disease History:: Denies. - Social history:: Smoking status: Reported history of juuling and/or vaping. ROS: 18:00 Abdomen/GI: Positive for abdominal pain, nausea, Negative for diarrhea, constipation, cp 18:00 MS/extremity: Positive for pain, of the left hip and left leg, Negative for injury or acute deformity, decreased range of motion, paresthesias, swelling, 18:00 Eyes: Negative for injury, pain, redness, and discharge, cp 18:00 Constitutional: Negative for body aches, chills, fever, poor PO intake, 18:00 Cardiovascular: Negative for chest pain, edema, palpitations, 18:00 Respiratory: Negative for cough, shortness of breath, wheezing, 18:00 Back: Positive for pain at rest, pain with movement, 18:00 : Negative for urinary symptoms, testicular pain 18:00 Neuro: Negative for altered mental status, dizziness, headache, numbness, weakness, 18:00 All other systems are negative, Exam: 18:05 Constitutional: The patient appears in no acute distress, alert, awake, non-toxic, well cp developed, well nourished, overweight 18:05 Head/Face: Normocephalic, atraumatic. cp 18:05 Eyes: Periorbital structures: appear normal, Conjunctiva: normal, no exudate, no injection, Sclera: no appreciated abnormality, Lids and lashes: appear normal, bilaterally, 18:05 ENT: External ear(s): are unremarkable, Nose: is normal, Mouth: Lips: moist, Oral mucosa: pink and intact, moist, Posterior pharynx: Airway: no evidence of obstruction, patent, 18:05 Chest/axilla: Inspection: normal, 18:05 Cardiovascular: Rate: normal, Rhythm: regular, Edema: is not appreciated, JVD: is not appreciated, 18:05 Respiratory: the patient does not display signs of respiratory distress, Respirations: normal, no use of accessory muscles, no retractions, labored breathing, is not present, Breath sounds: are clear throughout, no decreased breath sounds, no stridor, no wheezing, 18:05 Abdomen/GI: Inspection: abdomen appears normal, Bowel sounds: active, all quadrants, Palpation: soft, in all quadrants, moderate abdominal tenderness, in the epigastric area, rebound tenderness, is not appreciated, involuntary guarding, is not appreciated, 18:05 Back: vertebral tenderness, is not appreciated, 18:05 Neuro: Orientation: to person, place \T\ time. Mentation: is normal, Motor: moves all fours, strength is normal, Sensation: is normal, Vital Signs: 16:14 BP 173 / 112; Pulse 78; Resp 18; Temp 98.4; Pulse Ox 99% ; Weight 113.4 kg; Height 6 db ft. 0 in. ; Pain 9/10; 19:34 BP 180 / 102; Pulse 66; Resp 18; Pulse Ox 100% on R/A; Pain 8/10; tl4 20:39 BP 175 / 99; Pulse 64; Resp 16; Pulse Ox 100% ; tl4 21:44 BP 175 / 98; Pulse 88; Resp 16; Pulse Ox 98% on R/A; tl4 23:00 BP 169 / 95; Pulse 75; Resp 18; Temp 97.6(O); Pulse Ox 99% on R/A; tl4 16:14 Body Mass Index 33.91 (113.40 kg, 182.88 cm) db 16:14 Pain Scale: Adult db 19:34 Pain Scale: Adult tl4 MDM: 16:15 Medical Screening Exam initiated etelvina 22:00 Differential diagnosis: bursitis, DVT, strain, pancreatitis. 22:56 Data reviewed: vital signs, nurses notes, lab test result(s), radiologic studies, CT cp scan, ultrasound, and as a result, I will discharge patient. 22:56 Counseling: I had a detailed discussion with the patient and/or guardian regarding the cp historical points, exam findings, and any diagnostic results supporting the discharge/admit diagnosis, lab results, radiology results, to return to the emergency department if symptoms worsen or persist or if there are any questions or concerns that arise at home. Special discussion: I discussed with the patient their frequent requests for pain medications. Instructions have been given, that in the best interests of the patient, further pain Rx's must come from the patient's PCP or a finish painter. 05/14 17:49 Order name: CBC with Diff; Complete Time: 19:15 05/14 19:15 Interpretation: Normal except: HGB 11.2; HCT 34.7; MCV 77.3; MCH 24.8; RDW 17.9; MPV cp 7.5; AMANDA% 75.5. 05/14 17:49 Order name: CMP; Complete Time: 22:30 05/14 22:30 Interpretation: Normal except: K 2.7; CL 114; CRE 0.49; CA 7.5; TP 6.0; ALB 3.1. 05/14 17:49 Order name: Lipase; Complete Time: 22:30 05/14 22:33 Interpretation: Reviewed. 05/14 17:49 Order name: Urinalysis w/ reflexes; Complete Time: 19:15 05/14 22:31 Interpretation: UGLUC TRACE; Reviewed. 05/14 19:18 Order name: US Extremity Venous Unilateral Ltd; Complete Time: 22:30 05/14 22:31 Interpretation: Report reviewed. 05/14 19:18 Order name: CT Abd/Pelvis - IV Contrast Only; Complete Time: 22:30 05/14 17:49 Order name: IV Saline Lock; Complete Time: 19:12 05/14 17:49 Order name: Labs collected and sent; Complete Time: 19:12 cp 05/14 18:55 Order name: Labs - recollect needed: green top only; Complete Time: 19:45 ss Administered Medications: 19:35 Drug: TORadol - Ketorolac IVP 15 mg IVP once Route: IVP; Site: right antecubital; tl4 20:38 Follow up: Response: No adverse reaction; Pain is decreased tl4 19:35 Drug: NS 0.9% IV 1000 ml IV at 1 bolus Per protocol; to be given as a bolus over 60 tl4 minutes Route: IV; Rate: 1 bolus; Site: right antecubital; Delivery: Primary tubing; 20:45 Follow up: Response: No adverse reaction; IV Status: Completed infusion; IV Intake: tl4 1000ml 19:36 Drug: Ondansetron IVP 4 mg IVP once; over 2 minutes Route: IVP; Infused Over: 2 mins; tl4 Site: right antecubital; 20:38 Follow up: Response: No adverse reaction tl4 19:38 Drug: Famotidine IVP 20 mg IVP once; dilute with 10 mL 0.9% NaCl; give over 2 minutes tl4 Route: IVP; Infused Over: 2 mins; Site: right antecubital; 20:38 Follow up: Response: No adverse reaction tl4 19:42 Drug: morphine IVP or IV 4 mg IVP once over 4 mins Route: IVP; Infused Over: 4 mins; tl4 Site: right antecubital; 20:38 Follow up: Response: No adverse reaction; Pain is decreased tl4 20:37 Drug: Methocarbamol IVPB 1 grams IVPB once over 1 hrs; (mix in NS 100 mL) Route: IVPB; tl4 Infused Over: 1 hrs; Site: right antecubital; 21:44 Follow up: Response: No adverse reaction; Pain is decreased; IV Status: Completed tl4 infusion; IV Intake: 100ml 23:10 Drug: Potassium PO Effervescent Tablet 50 mEq PO once; dissolve in 4 ounces of water or tl4 juice Route: PO; 23:14 Follow up: Response: No adverse reaction tl4 23:10 Drug: Potassium PO Effervescent Tablet 25 mEq PO once; dissolve in 4 ounces of water or tl4 juice Route: PO; 23:15 Follow up: Response: No adverse reaction tl4 23:10 Drug: HYDROcodone-acetaminophen PO 10 mg-325 mg 1 tabs PO once Route: PO; tl4 23:15 Follow up: Response: No adverse reaction tl4 23:10 Drug: Neurontin PO 300 mg PO once Route: PO; tl4 23:15 Follow up: Response: No adverse reaction tl4 Disposition Summary: 05/14/24 22:57 Discharge Ordered Notes: Location: Home cp Problem: an ongoing problem cp Symptoms: have improved cp Condition: Stable cp Diagnosis - Upper abdominal pain, unspecified cp - Sciatica, left side cp Followup: cp - With: Reggie Nobles MD - When: 5 - 6 days - Reason: abdominal pain Followup: cp - With: Private Physician - When: 5 - 6 days - Reason: pain Discharge Instructions: - Discharge Summary Sheet cp - Abdominal Pain, Adult cp - Sciatica cp Forms: - Medication Reconciliation Form cp - Antibiotic Education cp - Prescription Opioid Use cp - Patient Portal Instructions cp - Leadership Thank You Letter cp Prescriptions: - Neurontin 300 mg Oral capsule - take 1 capsule ORAL route At bedtime; 30 capsule; Refills: 0, Product Selection cp Permitted - Zofran 4 mg Oral Tablet - take 1 tablet ORAL route every 12 hours As needed; 20 tablet; Refills: 0, cp Product Selection Permitted Signatures: Dispatcher [employer] EDAdalid Cheung MD MD cha Blanchard, Shelby RN RN Adalid Crum PA PA cp Alize Johns RN RN db Gopi Singh RN RN tl4 Corrections: (The following items were deleted from the chart) 05/15 22:47 05/14 17:55 chronically, cp cp 05/15 22:55 22:47 MS/extremity: Positive for pain, of the left hip and left leg, Negative for cp injury or acute deformity, decreased range of motion, paresthesias, swelling, cp 22:55 22:47 Abdomen/GI: Positive for abdominal pain, nausea, Negative for diarrhea, cp constipation, cp
[2024-05-15 09:43] VITALS: TEMP 98.4
[2024-05-15 09:57] VITALS: BP 175/98; O2SAT 98
== END 2024-05-14 23:16 | disposition home or self-care (01) ==
LOC: ER 15:58
DX: R10.13 Epigastric pain (principal); M54.32 Sciatica, left side
CPT/HCPCS: 36415; 74177; 80053; 81001; 83690; 85025; 93971; 96361; 96365; 96375; 99284; J2405; J2800; J7030; Q9967

== ENCOUNTER 2024-10-01 13:36 | Emergency (ER) | payer OTHER, SELFPAY ==
[2024-10-01 14:17] LABS: Specific Gravity 1.012 (1.005-1.030); Urine Bilirubin NEGATIVE (Negative); Urine Blood Negative (Negative); Urine Clarity Clear (Clear); Urine Color Colorless (Yellow); Urine Glucose NEGATIVE (Negative); Urine Ketones NEGATIVE (Negative); Urine Microscopic Reflex YN NO UMIC; Urine Nitrite NEGATIVE (Negative); Urine Protein NEGATIVE (Negative); Urine Urobilinogen Normal (Normal); Urine pH 6.5 (5.0-7.0)
[2024-10-01] MEDS ORDERED: GABAPENTIN 300 MG CAP ONE (14:24)
[2024-10-01] MEDS ORDERED: KETOROLAC 30 MG/ML INJ ONE (14:25)
[2024-10-01] MEDS ORDERED: dexAMETHasone 10 MG/ML VIAL ONE (14:25)
--- NOTE | 2024-10-01 14:28 | RAD REPORT ---
EXAM: CT brain without contrast HISTORY: head and left arm pain, radiculopathy COMPARISON: 12/09/2023 TECHNIQUE: Multiple contiguous axial images were obtained and a CT of the brain without contrast. Sag ittal and coronal reformats were performed. One or more of the following dose reduction techniques were used: Automated exposure control, adjust ment of the mA and/or kV according to patient size, and/or iterative reconstruction. FINDINGS: No evidence of hydrocephalus, intracranial hemorrhage, or extra-axial fluid collection. The brain is normal in morphology. Small right frontal lobe calcification, unchanged. No evidence of midline shift or areas of brain edema. The calvarium is intact. The visualized paranasal sinuses and mastoid air cells are essentially clear . IMPRESSION: No evidence of acute intracranial abnormality. EXAM: CT of the cervical spine without contrast HISTORY: Neck pain, injury head and left arm pain, radiculopathy TECHNIQUE: Multiple contiguous axial images were obtained in a CT of the cervical spine without contr ast. Sagittal and coronal reformats were performed. FINDINGS: The vertebral bodies demonstrate normal height and alignment. No evidence of acute fracture or subluxation.. No degenerative changes are present. No prevertebral soft tissue swelling is seen. The posterior facets are well aligned. Normal alignment of the skull base with the cervical spine is seen. The lung apices are unremarkable. IMPRESSION: No evidence of acute osseous abnormality of the cervical spine.
[2024-10-01] MEDS ORDERED: HYDROCODONE/APAP 5/325 MG TAB ONE (15:12)
--- NOTE | 2024-10-01 15:39 | ER ---
Nurse's Notes [facility] Name: Marquise Jhaveri Age: 43 yrs Sex: Male : 1980 Arrival Date: 10/01/2024 Time: 13:36 Bed 16 Private MD: Diagnosis: Radiculopathy, cervical region;Headache Presentation: 10/01 13:46 Chief complaint: Patient states: L neck, arm pain for 2 days. Now has EMANUEL and pain ll1 worsening to L side of body since. Coronavirus screen: Client denies travel out of the [place] in the last 14 days. At this time, the client does not indicate any symptoms associated with coronavirus-19. Ebola Screen: Patient denies travel to an Ebola-affected area in the 21 days before illness onset. Initial Sepsis Screen: Does the patient meet any 2 criteria? No. Patient's initial sepsis screen is negative. Does the patient have a suspected source of infection? No. Patient's initial sepsis screen is negative. Risk Assessment: Do you want to hurt yourself or someone else? Patient reports no desire to harm self or others. Onset of symptoms was September 30, 2024. 13:46 Method Of Arrival: Ambulatory ll1 13:46 Acuity: ARNULFO 3 ll1 Triage Assessment: 13:49 General: Appears uncomfortable, Behavior is calm, cooperative, appropriate for age. ll1 Pain: Complains of pain in L neck/shoulder Quality of pain is described as aching. Musculoskeletal: Circulation, motion, and sensation intact. Capillary refill < 3 seconds, in left fingers. Reports pain in neck/L shoulder. Historical: - Allergies: 13:47 No Known Allergies; ll1 - PMHx: 13:47 Anxiety; herniated discs; Hypertension; Pancreatitis; ll1 - PSHx: 13:47 back surgery; Gastric Bypass; discectomy (Gastric Bypass); ll1 - Immunization history:: Adult Immunizations up to date. - Infectious Disease History:: Denies. - Social history:: Smoking status: Patient denies any tobacco usage or history of. - Family history:: not pertinent. - Hospitalizations: : No recent hospitalization is reported. Screenin:15 [facility] ED Fall Risk Assessment (Adult) History of falling in the last 3 months, kj2 including since admission No falls in past 3 months (0 pts) Confusion or Disorientation No (0 pts) Intoxicated or Sedated No (0 pts) Impaired Gait No (0 pts) Mobility Assist Device Used No (0 pt) Altered Elimination No (0 pt) Score/Fall Risk Level 0 - 2 = Low Risk Maintained a safe environment, Hourly rounding (assess needs \T\ fall precautionary measures) done. Abuse screen: Denies threats or abuse. Denies injuries from another. Nutritional screening: No deficits noted. Tuberculosis screening: No symptoms or risk factors identified. Assessment: 14:15 General: Appears in no apparent distress. Behavior is calm, cooperative. Pain: kj2 Complains of pain in left side of neck, left arm, headache Pain currently is 8 out of 10 on a pain scale. Neuro: Level of Consciousness is awake, alert, obeys commands, Oriented to person, place, time, situation. Cardiovascular: Patient's skin is warm and dry. Respiratory: Airway is patent Respiratory effort is unlabored. GI: No signs and/or symptoms were reported involving the gastrointestinal system. : No signs and/or symptoms were reported regarding the genitourinary system. 15:22 Reassessment: Patient and/or family updated on plan of care and expected duration. Pain kj2 level reassessed. Patient is alert, oriented x 3, equal unlabored respirations, skin warm/dry/pink. reports pain 6 level. 16:09 Reassessment: Patient appears in no apparent distress at this time. Patient and/or kj2 family updated on plan of care and expected duration. Pain level reassessed. Patient is alert, oriented x 3, equal unlabored respirations, skin warm/dry/pink. Vital Signs: 13:46 BP 154 / 90; Pulse 86; Resp 18; Temp 98.6; Pulse Ox 100% ; Weight 103.42 kg; Height 6 ll1 ft. 0 in. ; Pain 9/10; 16:09 BP 148 / 84; Pulse 80; Resp 18; Temp 98; Pulse Ox 100% on R/A; kj2 13:46 Body Mass Index 30.92 (103.42 kg, 182.88 cm) ll1 13:46 Pain Scale: Adult ll1 [place] Coma Score: 15:37 Eye Response: spontaneous(4). Motor Response: obeys commands(6). Verbal Response: rn oriented(5). Total: 15. ED Course: 13:39 Patient arrived in ED. cj3 13:40 Emre Damon MD is Attending Physician. rn 13:47 Triage completed. ll1 13:48 Arm band placed on. ll1 14:10 Urinalysis w/ reflexes Sent. db 14:12 Jessica Blanco, RN is Primary Nurse. kj2 14:20 CT Head C Spine In Process Unspecified. EDMS 14:39 Patient has correct armband on for positive identification. Bed in low position. Call kj2 light in reach. Provided Education on: call light. 14:39 No provider procedures requiring assistance completed. kj2 16:11 Patient did not have IV access during this emergency room visit. kj2 Administered Medications: 14:32 Drug: Dexamethasone IM 10 mg IM once Route: IM; Site: right deltoid; kj2 16:10 Follow up: Response: No adverse reaction kj2 14:32 Drug: Gabapentin PO 300 mg PO once Route: PO; kj2 16:10 Follow up: Response: No adverse reaction kj2 14:32 Drug: Ketorolac IM 30 mg IM once Route: IM; Site: left deltoid; kj2 16:10 Follow up: Response: No adverse reaction kj2 15:24 Drug: HYDROcodone-acetaminophen PO 5 mg-325 mg 1 tabs PO once Route: PO; kj2 16:09 Follow up: Response: No adverse reaction kj2 Medication: 14:39 VIS not applicable for this client. kj2 Outcome: 15:39 Discharge ordered by . rn 16:10 Discharged to home ambulatory, kj2 16:10 Condition: stable 16:10 Discharge instructions given to patient, Instructed on discharge instructions, follow up and referral plans. medication usage, Demonstrated understanding of instructions, follow-up care, medications, Prescriptions given X 3, 16:11 Patient left the ED. kj2 Signatures: Dispatcher [employer] EDMS Emre Damon MD MD rn Lewis, Lynsay, RN RN ll1 Alize Johns RN RN Jessica Cardoza RN RN kj2 Pamela Castillo cj3 Corrections: (The following items were deleted from the chart) 13:49 13:46 BP 154 / 90; Pulse 86bpm; Resp 18bpm; Pulse Ox 100%; Pain 9/10, Adult; ll1 ll1 13:55 13:46 BP 154 / 90; Pulse 86bpm; Resp 18bpm; Pulse Ox 100%; Pain 9/10, Adult; ll1 ll1
--- NOTE | 2024-10-01 15:39 | EDPHYS ---
Physician Documentation [facility] Name: Marquise Jhaveri Age: 43 yrs Sex: Male : 1980 Arrival Date: 10/01/2024 Time: 13:36 Bed 16 Private MD: ED Physician Emre Damon HPI: 10/01 15:24 This 43 yrs old Male presents to ER via Ambulatory with complaints of Pain All rn Over, Migraine. 15:24 The patient complains of pain to the top of head and forehead. The patient describes rn the headache as aching. Onset: The symptoms/episode began/occurred 2 day(s) ago. Associated signs and symptoms: Pertinent negatives: altered mental status, dizziness, fever, neck stiffness, vision changes, vision loss, weakness, vertigo. Severity of symptoms: At its worst the pain was moderate, "similar to past headaches". The symptoms are alleviated by nothing. the symptoms are aggravated by nothing. The patient has experienced similar episodes in the past. The patient has not recently seen a physician. Pt reports headache, assoc with pain and tingling in left arm. No trauma. No fever. No neck stiffness. Has chronic back problems. 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 Has been clean for several months now. No chest pain or shortness of breath. No weakness.. Historical: - Allergies: 13:47 No Known Allergies; ll1 - PMHx: 13:47 Anxiety; herniated discs; Hypertension; Pancreatitis; ll1 - PSHx: 13:47 back surgery; Gastric Bypass; discectomy (Gastric Bypass); ll1 - Immunization history:: Adult Immunizations up to date. - Infectious Disease History:: Denies. - Social history:: Smoking status: Patient denies any tobacco usage or history of. - Family history:: not pertinent. - Hospitalizations: : No recent hospitalization is reported. ROS: 15:24 Constitutional: Negative for fever, chills, and weight loss, Eyes: Negative for injury, rn pain, redness, and discharge, Neck: Negative for injury, pain, and swelling, Cardiovascular: Negative for chest pain, palpitations, and edema, Respiratory: Negative for shortness of breath, cough, wheezing, and pleuritic chest pain, Abdomen/GI: Negative for abdominal pain, nausea, vomiting, diarrhea, and constipation, Back: Positive for chronic back pain MS/Extremity: Negative for injury and deformity, Skin: Negative for injury, rash, and discoloration, Neuro: Positive for headache, positive for tingling and pain in left upper extremity Exam: 15:24 Constitutional: This is a well developed, well nourished patient who is awake, alert, rn and in no acute distress. Head/Face: Normocephalic, atraumatic. Eyes: Pupils equal round and reactive to light, extra-ocular motions intact. Lids and lashes normal. Conjunctiva and sclera are non-icteric and not injected. Cornea within normal limits. Periorbital areas with no swelling, redness, or edema. Neck: No neck stiffness or meningismus Cardiovascular: Regular rate and rhythm . No pulse deficits. Respiratory: No increased work of breathing, no retractions or nasal flaring. Abdomen/GI: Soft, non-tender MS/ Extremity: Pulses equal, no cyanosis. Neurovascular intact. Full, normal range of motion. Equal circumference. Neuro: Awake and alert, GCS 15, oriented to person, place, time, and situation. Cranial nerves II-XII grossly intact. Motor strength 5/5 in all extremities. Sensory grossly intact. Cerebellar exam normal. Normal gait. Vital Signs: 13:46 BP 154 / 90; Pulse 86; Resp 18; Temp 98.6; Pulse Ox 100% ; Weight 103.42 kg; Height 6 ll1 ft. 0 in. ; Pain 9/10; 16:09 BP 148 / 84; Pulse 80; Resp 18; Temp 98; Pulse Ox 100% on R/A; kj2 13:46 Body Mass Index 30.92 (103.42 kg, 182.88 cm) ll1 13:46 Pain Scale: Adult ll1 [place] Coma Score: 15:37 Eye Response: spontaneous(4). Motor Response: obeys commands(6). Verbal Response: rn oriented(5). Total: 15. MDM: 13:40 Medical Screening Exam initiated rn 15:37 Differential diagnosis: intracerebral hemorrhage, migraine, neoplasm, tension headache, rn vasomotor headache. Data reviewed: vital signs, nurses notes, radiologic studies, CT scan, and as a result, I will discharge patient. Counseling: I had a detailed discussion with the patient and/or guardian regarding the historical points, exam findings, and any diagnostic results supporting the discharge/admit diagnosis, lab results, radiology results, the need for outpatient follow up, to return to the emergency department if symptoms worsen or persist or if there are any questions or concerns that arise at home. Special discussion: I discussed with the patient/guardian in detail that at this point there is no indication for admission to the hospital. It is understood, however, that if the symptoms persist or worsen the patient needs to return immediately for re-evaluation. ED course: No acute findings in CT head or C-spine. Glucose within normal range. Urinalysis normal. Most likely migraine given history of migraines and radiculopathy given chronic neck and back problems. Will discharge home with return precautions and told to follow-up with PCP for further evaluation and management of nonemergent complaints.. 10/01 14:00 Order name: Urinalysis w/ reflexes; Complete Time: 14:30 ll1 10/01 14:05 Order name: Glucose, Ancillary Testing; Complete Time: 14:30 EDMS 10/01 13:56 Order name: CT Head C Spine; Complete Time: 14:30 rn 10/01 13:56 Order name: Accucheck Blood Glucose; Complete Time: 14:00 rn Administered Medications: 14:32 Drug: Dexamethasone IM 10 mg IM once Route: IM; Site: right deltoid; kj2 16:10 Follow up: Response: No adverse reaction kj2 14:32 Drug: Gabapentin PO 300 mg PO once Route: PO; kj2 16:10 Follow up: Response: No adverse reaction kj2 14:32 Drug: Ketorolac IM 30 mg IM once Route: IM; Site: left deltoid; kj2 16:10 Follow up: Response: No adverse reaction kj2 15:24 Drug: HYDROcodone-acetaminophen PO 5 mg-325 mg 1 tabs PO once Route: PO; kj2 16:09 Follow up: Response: No adverse reaction kj2 Disposition Summary: 10/01/24 15:39 Discharge Ordered Notes: Location: Home rn Problem: new rn Symptoms: have improved rn Condition: Stable rn Diagnosis - Radiculopathy, cervical region rn - Headache rn Followup: rn - With: Private Physician - When: As needed - Reason: Recheck today's complaints, Re-evaluation by your physician Discharge Instructions: - Discharge Summary Sheet rn - Cervical Radiculopathy rn Forms: - Medication Reconciliation Form rn - Antibiotic dietetic intern - Prescription Opioid Use rn - Patient Portal Instructions rn - Leadership Thank You Letter rn Prescriptions: - gabapentin 100 mg Oral capsule - take 1 capsule ORAL route every 12 hours As needed; 14 capsule; Refills: 0, rn Product Selection Permitted - Cyclobenzaprine 10 mg Oral tablet - take 1 tablet ORAL route every 8 hours As needed; 12 tablet; Refills: 0, rn Product Selection Permitted - Medrol ([place]) 4 mg Oral Tablets, Dose Pack - take 1 tablet ORAL route as directed - follow package instructions; 1 packet; rn Refills: 0, Product Selection Permitted Signatures: Dispatcher [employer] EDMS Emre Damon MD MD rn Lewis, Lynsay RN RN ll1 Jessica Blanco RN RN kj2 Corrections: (The following items were deleted from the chart) 14:01 14:01 Urinalysis+U.LAB.BRZ ordered. EDLA EDMS
[2024-10-01 16:31] VITALS: O2SAT 100
[2024-10-01 16:33] VITALS: BP 148/84; TEMP 98
== END 2024-10-01 16:11 | disposition home or self-care (01) ==
LOC: ER 13:36
DX: M54.12 Radiculopathy, cervical region (principal)
CPT/HCPCS: 70450; 72125; 81003; 82947; 96372; 99284; J1100

== ENCOUNTER 2024-10-08 15:58 | Emergency (ER) | payer SELFPAY ==
[2024-10-08] MEDS ORDERED: PANTOPRAZOLE 40 MG INJ ONE (19:35)
[2024-10-08] MEDS ORDERED: ONDANSETRON 4 MG/2 ML VIAL ONE (19:35)
[2024-10-08] MEDS ORDERED: NA CHLORIDE 0.9% 1,000 ML ONE (19:36)
[2024-10-08] MEDS ORDERED: MORPHINE 4 MG/ML SYR ONE ×2 (19:36→20:56)
[2024-10-08 19:44] LABS: Absolute Basophils 0.1 K/uL (0-0.5); Absolute Eosinophils 0.1 K/uL (0-0.5); Absolute Lymphocytes (CBC) 1.2 K/uL (0.7-4.9); Absolute Monocytes 0.5 K/uL (0.1-1.3); Absolute Neutrophil 5.4 K/uL (1.8-8.0); Basophils % 1.3 % (0-1.3); Eosinophils % 0.8 % (0-4.4); Lymphocytes % 16.7 % (15.3-44.8); MCH 20.4 pg (27.0-35.0); MCHC 30.3 g/dL (32.0-36.0); MCV 67.1 fL (80-100); Monocytes % 7.1 % (3.3-12.3); Neutrophils % 74.1 % (41.7-73.7); Platelets 136 thou/uL (152-406); RBC Red Blood Cell Count 3.88 M/uL (4.33-5.43); Red Cell Distribution Width 16.6 % (12.1-15.2)
[2024-10-08 19:50] LABS: Blood Morphology Comment NOTED (NOT SEEN); Hypochromasia 1+; Microcytosis 1+; Platelet Estimate DECR; White Blood Cell Scan OK (OK)
[2024-10-08 20:02] LABS: Albumin 3.7 g/dL (3.4-5.0); Albumin/Globulin Ratio 1.3 (1.1-1.8); Bilirubin Total 0.4 mg/dL (0.2-1.0); Globulin 2.8 g/dL (2.3-3.5); Protein, Total 6.5 g/dL (6.4-8.2)
[2024-10-08 20:30] LABS: Urine Bilirubin NEGATIVE (Negative); Urine Blood Negative (Negative); Urine Clarity Clear (Clear); Urine Color Light-Yellow (Yellow); Urine Glucose NEGATIVE (Negative); Urine Ketones NEGATIVE (Negative); Urine Microscopic Reflex YN NO UMIC; Urine Nitrite NEGATIVE (Negative); Urine Protein NEGATIVE (Negative); Urine Urobilinogen Normal (Normal)
--- NOTE | 2024-10-08 20:52 | RAD REPORT ---
EXAMINATION: CT ABDOMEN AND PELVIS WITH CONTRAST CLINICAL INDICATION: Abdominal pain TECHNIQUE: CT abdomen and pelvis was performed, after the administration of 100 cc Isovue-300.. Sagit laurent and coronal reconstructions were obtained. One or more of the following dose reduction techniques were used: Automated exposure control, adjustment of the mA and kV according to patient si ze, and iterative reconstruction. Unless otherwise specified, incidental findings do not require dedicated imaging follow-up. [id number]. Oral contrast was not given which limits evaluation of bowel and appendix. COMPARISON: .April 2024 FINDINGS: 7.1 x 5.1 cm pseudocyst pancreatic tail without significant change from prior exam. Remainder of the pancreas unremarkable. Prominent varices throughout mostly the left abdomen. Portal vein is patent. Liver, adrenals and kidneys unremarkable Spleen 16 cm. Normal appendix. Small umbilical hernia. Postsurgical changes stomach and small bowel. No obstruction No evidence of diverticulitis. : IMPRESSION: 7.1 cm pancreatic pseudocyst without Mild to moderate splenomegaly
[2024-10-08] MEDS ORDERED: METOCLOPRAMIDE 10 MG/2mL INJ ONE (20:56)
--- NOTE | 2024-10-08 22:23 | EDPHYS ---
Physician Documentation [facility] Name: Marquise Jhaveri Age: 43 yrs Sex: Male : 1980 Arrival Date: 10/08/2024 Time: 15:58 Bed 16 Private MD: ED Physician Fernie Kay HPI: 10/08 16:44 This 43 yrs old Male presents to ER via Ambulatory with complaints of ec2 Abdominal Pain, Nausea/Vomiting, Headache. 16:44 Patient arrives today for evaluation of abdominal pain. Patient complains of epigastric ec2 abdominal pain, has a history of previous pancreatitis. Reports previous gastric sleeve. Patient reports episodes of nausea, some associated vomiting, no diarrhea. No urinary complaints.. Historical: - Allergies: 16:38 No Known Allergies; iw - PMHx: 16:38 Anxiety; herniated discs; Hypertension; Pancreatitis; iw - PSHx: 16:38 back surgery; discectomy (c ); Gastric Bypass; iw - Immunization history:: Adult Immunizations up to date. - Infectious Disease History:: Denies. - Social history:: Smoking status: Reported history of juuling and/or vaping. ROS: 16:44 Constitutional: as per hpi ec2 Exam: 16:44 Constitutional: GEN: NAD Head: atraumatic Eyes: EOMI Ears: External ears are ec2 normal. CV: regular rate LUNGS: no respiratory distress ABD: non-distended, soft, tender in the epigastrium, no guarding or rigid SKIN: no evidence of rashes MSK: no evidence of trauma Vital Signs: 16:36 BP 138 / 75; Pulse 92; Resp 16; Temp 98.4; Pulse Ox 100% ; Weight 104.33 kg; Height 6 iw ft. 0 in. ; Pain 7/10; 19:20 BP 150 / 101; Pulse 70; Resp 18; Pulse Ox 99% on R/A; Pain 10/10; rg5 21:00 BP 123 / 76; Pulse 78; Resp 18; Pulse Ox 99% ; Pain 4/10; rg5 22:01 BP 119 / 74; Pulse 80; Resp 18; Pulse Ox 99% on R/A; Pain 2/10; rg5 16:36 Body Mass Index 31.19 (104.33 kg, 182.88 cm) iw 16:36 Pain Scale: Adult iw 19:20 Pain Scale: Adult rg5 21:00 Pain Scale: Adult rg5 22:01 Pain Scale: Adult rg5 MDM: 16:44 Data reviewed: vital signs, nurses notes. ED course: Patient arrives today for upper ec2 abdominal pain. Examination yields abdominal findings as above. Will obtain lab work, CT imaging. DDx include processes such as pancreatitis, gastritis, gastroenteritis.. 16:45 Medical Screening Exam initiated ec2 20:00 Transition of care: After a detail discussion of the patient's case, care is sw6 transferred to Fernie Kay MD. ED course: the patient is signed out pending results of labs and imaging as well as reeval. . 22:20 ED course: COMPARISON: .April 2024 FINDINGS: 7.1 x 5.1 cm pseudocyst pancreatic tail sp4 without significant change from prior exam. Remainder of the pancreas unremarkable. Prominent varices throughout mostly the left abdomen. Portal vein is patent. Liver, adrenals and kidneys unremarkable Spleen 16 cm. Normal appendix. Small umbilical hernia. Postsurgical changes stomach and small bowel. No obstruction No evidence of diverticulitis. : IMPRESSION: 7.1 cm pancreatic pseudocyst without Mild to moderate splenomegaly P. 10/08 16:43 Order name: CBC with Diff; Complete Time: 20:00 ec2 10/08 20:00 Interpretation: Anemia. [facility] 10/08 16:43 Order name: CMP; Complete Time: 20:10 ec2 10/08 20:10 Interpretation: Within normal limits. [facility] 10/08 16:43 Order name: Lipase; Complete Time: 20:10 ec2 10/08 20:10 Interpretation: Within normal limits. [facility] 10/08 16:43 Order name: Urinalysis w/ reflexes; Complete Time: 22:10 ec2 10/08 19:50 Order name: CBC Smear Scan; Complete Time: 20:00 EDMS 10/08 16:43 Order name: CT Abd/Pelvis - IV Contrast Only; Complete Time: 22:10 ec2 10/08 16:43 Order name: IV Saline Lock; Complete Time: 19:49 ec2 10/08 16:43 Order name: Labs collected and sent; Complete Time: 19:49 ec2 Administered Medications: 09:30 Drug: NS 0.9% IV 1000 ml IV at 1 bolus Per protocol; to be given as a bolus over 60 rg5 minutes Route: IV; Rate: 1 bolus; Site: left wrist; 21:00 Follow up: IV Status: Completed infusion; IV Intake: 1000ml rg5 19:30 Drug: Ondansetron IVP 4 mg IVP once; over 2 minutes Route: IVP; Site: left wrist; rg5 21:59 Follow up: Response: No adverse reaction rg5 19:30 Drug: morphine IVP or IV 4 mg IVP once over 4 mins Route: IVP; Infused Over: 4 mins; rg5 Site: left wrist; 20:30 Follow up: Response: No adverse reaction; Pain is increased rg5 19:30 Drug: Pantoprazole IVP 80 mg IVP once Route: IVP; Site: left wrist; rg5 21:58 Follow up: Response: No adverse reaction rg5 21:07 Drug: morphine IVP or IV 4 mg IVP once over 4 mins Route: IVP; Infused Over: 4 mins; rg5 Site: left antecubital; 21:58 Follow up: Response: No adverse reaction; Pain is decreased rg5 21:07 Drug: metoCLOPramide IVP 10 mg IVP once; over 1 to 2 minutes Route: IVP; Site: left rg5 antecubital; 21:58 Follow up: Response: No adverse reaction; Pain is decreased rg5 Disposition Summary: 10/08/24 22:22 Discharge Ordered Problem: new sp4 Symptoms: have improved sp4 Condition: Stable sp4 Diagnosis - Splenomegaly, not elsewhere classified sp4 - Acute abdominal pain, nausea vomiting, acute headache, microcytic anemia with sp4 splenic enlargement Followup: sp4 - With: Nafisa Merida MD - When: 7 - 10 days - Reason: Recheck today's complaints Discharge Instructions: - Discharge Summary Sheet sp4 - Enlarged Spleen sp4 - Clear Liquid Diet, Adult, [id number] sp4 Forms: - Patient Portal Instructions sp4 Prescriptions: - Tramadol 50 mg Oral tablet - take 1 tablet ORAL route every 8 hours as needed; 20 tablet; Refills: 0, sp4 Product Selection Permitted - promethazine 25 mg Oral Tablet - take 1 tablet ORAL route every 6 hours As needed; 20 tablet; Refills: 0, sp4 Product Selection Permitted - methocarbamol 750 mg Oral tablet - take 2 tablets ORAL route every 8 hours for 3 days PRN pain; 30 tablet; sp4 Refills: 0, Product Selection Permitted Signatures: Dispatcher [employer] Betty Castle, ANAHY RN iw Fernie Kay MD MD sp4 Dandre Juares MD MD ec2 Judie Taylor MD MD sw6 Ruddy Vallejo RN RN rg5 Corrections: (The following items were deleted from the chart) 16:44 16:44 Abdomen Pelvis W Con+CT.RAD.BRZ ordered. EDMS EDMS
--- NOTE | 2024-10-08 22:23 | ER ---
Nurse's Notes [facility] Name: Marquise Jhaveri Age: 43 yrs Sex: Male : 1980 Arrival Date: 10/08/2024 Time: 15:58 Bed 16 Private MD: Diagnosis: Splenomegaly, not elsewhere classified;Acute abdominal pain, nausea vomiting, acute headache, microcytic anemia with splenic enlargement Presentation: 10/08 16:36 Chief complaint: Patient states: hx of pancreatitis , having pain in my chest and sides iw and feels like acid is coming up my throat , was on prednisone and it messed up my stomach , everything got bad 3-4 days ago. Coronavirus screen: At this time, the client does not indicate any symptoms associated with coronavirus-19. Ebola Screen: No symptoms or risks identified at this time. Initial Sepsis Screen: Does the patient meet any 2 criteria? No. Patient's initial sepsis screen is negative. Does the patient have a suspected source of infection?. Risk Assessment: Do you want to hurt yourself or someone else? Patient reports no desire to harm self or others. Onset of symptoms was October 05, 2024. 16:36 Method Of Arrival: Ambulatory iw 16:36 Acuity: ARNULFO 3 iw Historical: - Allergies: 16:38 No Known Allergies; iw - PMHx: 16:38 Anxiety; herniated discs; Hypertension; Pancreatitis; iw - PSHx: 16:38 back surgery; discectomy (c ); Gastric Bypass; iw - Immunization history:: Adult Immunizations up to date. - Infectious Disease History:: Denies. - Social history:: Smoking status: Reported history of juuling and/or vaping. Screenin:30 [facility] ED Fall Risk Assessment (Adult) History of falling in the last 3 months, rg5 including since admission No falls in past 3 months (0 pts) Confusion or Disorientation No (0 pts) Intoxicated or Sedated No (0 pts) Impaired Gait No (0 pts) Mobility Assist Device Used No (0 pt) Altered Elimination No (0 pt) Score/Fall Risk Level 0 - 2 = Low Risk Oriented to surroundings, Maintained a safe environment, Hourly rounding (assess needs \T\ fall precautionary measures) done. Abuse screen: Denies threats or abuse. Nutritional screening: No deficits noted. Tuberculosis screening: No symptoms or risk factors identified. Assessment: 19:30 General: Appears uncomfortable, Behavior is calm, cooperative, appropriate for age. rg5 Pain: Complains of pain in abdomen. Neuro: Level of Consciousness is awake, alert, obeys commands, Oriented to person, place, time, situation. Cardiovascular: Patient's skin is warm and dry. Respiratory: Airway is patent Trachea midline Respiratory effort is even, unlabored. GI: Abdomen is round non-distended, Bowel sounds present in left lower quadrant Abd is soft and non tender Reports upper abdominal pain, cramping. : No signs and/or symptoms were reported regarding the genitourinary system. EENT: No signs and/or symptoms were reported regarding the EENT system. Derm: No signs and/or symptoms reported regarding the dermatologic system. Musculoskeletal: Circulation, motion, and sensation intact. Range of motion: intact in all extremities. 20:25 Reassessment: No changes from previously documented assessment. Patient and/or family rg5 updated on plan of care and expected duration. Pain level reassessed. Patient is alert, oriented x 3, equal unlabored respirations, skin warm/dry/pink. 21:15 Reassessment: Patient and/or family updated on plan of care and expected duration. Pain rg5 level reassessed. Patient is alert, oriented x 3, equal unlabored respirations, skin warm/dry/pink. Patient states feeling better. Patient states symptoms have improved. 22:25 Reassessment: Patient and/or family updated on plan of care and expected duration. Pain rg5 level reassessed. Patient is alert, oriented x 3, equal unlabored respirations, skin warm/dry/pink. Patient states symptoms have improved. Vital Signs: 16:36 BP 138 / 75; Pulse 92; Resp 16; Temp 98.4; Pulse Ox 100% ; Weight 104.33 kg; Height 6 iw ft. 0 in. ; Pain 7/10; 19:20 BP 150 / 101; Pulse 70; Resp 18; Pulse Ox 99% on R/A; Pain 10/10; rg5 21:00 BP 123 / 76; Pulse 78; Resp 18; Pulse Ox 99% ; Pain 4/10; rg5 22:01 BP 119 / 74; Pulse 80; Resp 18; Pulse Ox 99% on R/A; Pain 2/10; rg5 16:36 Body Mass Index 31.19 (104.33 kg, 182.88 cm) iw 16:36 Pain Scale: Adult iw 19:20 Pain Scale: Adult rg5 21:00 Pain Scale: Adult rg5 22:01 Pain Scale: Adult rg5 ED Course: 16:00 Patient arrived in ED. mr 16:01 Dandre Juares MD is Attending Physician. ec2 16:38 Triage completed. iw 16:39 Arm band placed on. iw 16:47 Radiology exam delayed due to lab results not completed at this time. (BUN/Creatinine) jc4 IV insertion attempt and/or patient not having appropriate IV at this time. 18:17 Attending Physician role handed off by Dandre Juares MD ec2 18:17 Judie Taylor MD is Attending Physician. ec2 19:10 Ruddy Vallejo, ANAHY is Primary Nurse. rg5 19:30 Patient has correct armband on for positive identification. rg5 19:30 No provider procedures requiring assistance completed. Inserted saline lock: 22 gauge rg5 in left antecubital area, using aseptic technique. Blood collected. Flushed with 10 mL NS. 19:50 Radiology exam delayed due to lab results not completed at this time. (BUN/Creatinine). nj 20:23 Attending Physician role handed off by Judie Taylor MD sp4 20:23 Fernie Kay MD is Attending Physician. sp4 20:24 CT Abd/Pelvis - IV Contrast Only In Process Unspecified. EDMS 22:22 Nafisa Merida MD is Referral Physician. sp4 22:40 Provided Education on: POST ER CARE. rg5 22:40 IV discontinued, bleeding controlled, No redness/swelling at site. Pressure dressing rg5 applied. Administered Medications: 09:30 Drug: NS 0.9% IV 1000 ml IV at 1 bolus Per protocol; to be given as a bolus over 60 rg5 minutes Route: IV; Rate: 1 bolus; Site: left wrist; 21:00 Follow up: IV Status: Completed infusion; IV Intake: 1000ml rg5 19:30 Drug: Ondansetron IVP 4 mg IVP once; over 2 minutes Route: IVP; Site: left wrist; rg5 21:59 Follow up: Response: No adverse reaction rg5 19:30 Drug: morphine IVP or IV 4 mg IVP once over 4 mins Route: IVP; Infused Over: 4 mins; rg5 Site: left wrist; 20:30 Follow up: Response: No adverse reaction; Pain is increased rg5 19:30 Drug: Pantoprazole IVP 80 mg IVP once Route: IVP; Site: left wrist; rg5 21:58 Follow up: Response: No adverse reaction rg5 21:07 Drug: morphine IVP or IV 4 mg IVP once over 4 mins Route: IVP; Infused Over: 4 mins; rg5 Site: left antecubital; 21:58 Follow up: Response: No adverse reaction; Pain is decreased rg5 21:07 Drug: metoCLOPramide IVP 10 mg IVP once; over 1 to 2 minutes Route: IVP; Site: left rg5 antecubital; 21:58 Follow up: Response: No adverse reaction; Pain is decreased rg5 Medication: 19:30 VIS not applicable for this client. rg5 Intake: 21:00 IV: 1000ml; Total: 1000ml. rg5 Outcome: 22:22 Discharge ordered by . sp4 22:41 Discharged to home ambulatory, rg5 22:41 Condition: stable 22:41 Discharge instructions given to patient, Instructed on discharge instructions, follow up and referral plans. Demonstrated understanding of instructions, follow-up care, medications, Prescriptions given X 3, 22:41 Patient left the ED. rg5 Signatures: Dispatcher [employer] EDYoli Ventura, Reg Reg Betty Taylor, RN RN Orlando Akhtar Sergey, MD MD sp4 Dandre Juares MD MD ec2 Ruddy Vallejo RN RN rg5 Ryan Alexandra 4 Corrections: (The following items were deleted from the chart) 17:35 16:36 Pulse 92bpm; Resp 16bpm; Pulse Ox 100%; Temp 98.4F; 104.33 kg; Height 6 ft. 0 iw in.; BMI: 31.1; Pain 01/28, Adult; iw
[2024-10-08 23:25] VITALS: TEMP 98.4
[2024-10-08 23:26] VITALS: O2SAT 99
[2024-10-08 23:29] VITALS: BP 119/74
== END 2024-10-08 22:41 | disposition home or self-care (01) ==
LOC: ER 15:58
DX: R16.1 Splenomegaly, not elsewhere classified (principal); D50.9 Iron deficiency anemia, unspecified; R51.9 Headache, unspecified; R11.2 Nausea with vomiting, unspecified
CPT/HCPCS: 36415; 74177; 80053; 81003; 83690; 85025; 99284; J2405; J2470; J2765; J7030; Q9967

== ENCOUNTER 2024-11-15 16:30 | Emergency (ER) | payer SELFPAY ==
[2024-11-15] MEDS ORDERED: ONDANSETRON 4 MG/2 ML VIAL ONE (19:11)
[2024-11-15] MEDS ORDERED: NA CHLORIDE 0.9% 1,000 ML ONE (19:11)
[2024-11-15] MEDS ORDERED: MORPHINE 4 MG/ML SYR ONE (19:11)
[2024-11-15 19:26] LABS: Absolute Lymphocytes (CBC) 0.9 K/uL (0.7-4.9); Absolute Monocytes 0.2 K/uL (0.1-1.3); Basophils % 0.5 % (0-1.3); Eosinophils % 0.4 % (0-4.4); Hematocrit 15.2 % (39.6-49.0); Lymphocytes % 22.4 % (15.3-44.8); MCH 19.1 pg (27.0-35.0); MCHC 30.5 g/dL (32.0-36.0); MCV 62.8 fL (80-100); MPV 7.9 fL (7.6-11.3); Monocytes % 5.8 % (3.3-12.3); Neutrophils % 70.9 % (41.7-73.7); Nucleated Red Blood Cells % 0.4 % (0-0); Platelets 140 thou/uL (152-406); RBC Red Blood Cell Count 2.43 M/uL (4.33-5.43); Red Cell Distribution Width 16.8 % (12.1-15.2)
[2024-11-15 19:31] LABS: Hemoglobin 4.6 g/dL (13.6-17.9)
[2024-11-15 19:37] LABS: Albumin 3.9 g/dL (3.4-5.0); Albumin/Globulin Ratio 1.3 (1.1-1.8); Alkaline Phosphatase 116 U/L (45-117); Anion Gap 9.1 mEq/L (5.0-15.0); BUN Blood Urea Nitrogen 10 mg/dL (7-18); Bicarbonate 25 mEq/L (21-32); Bilirubin Total 0.6 mg/dL (0.2-1.0); Glomerular Filtration Rate 114 ml/min (=/>90); Glucose Level 104 mg/dL (74-106); Lipase 25 U/L (13-75); Potassium 4.1 mEq/L (3.5-5.1); Protein, Total 6.9 g/dL (6.4-8.2); Sodium Level 140 mEq/L (136-145)
[2024-11-15 19:39] LABS: ALT/SGPT < 14 U/L (16-61); AST/SGOT < 10 U/L (15-37)
[2024-11-15 19:54] LABS: Anisocytosis 1+; Blood Morphology Comment NOTED (NOT SEEN); Hypochromasia 2+; Microcytosis 2+; Platelet Estimate ADEQ; White Blood Cell Scan OK (OK)
--- NOTE | 2024-11-15 20:03 | RAD REPORT ---
EXAMINATION: CT ABDOMEN AND PELVIS WITH CONTRAST CLINICAL INDICATION: ABD PAIN TECHNIQUE: CT abdomen and pelvis was performed, after the administration of IV contrast, as per [facility] protocol. Axial, sagittal and coronal reconstructions were obtained. One or more of the following dose reduction techniques were used: Automated exposure control, adjustment of the mA and k V according to patient size, and iterative reconstruction. Unless otherwise specified, incidental findings do not require dedicated imaging follow-up. COMPARISON: 10/08/2024, 05/14/2024 FINDINGS: LOWER CHEST: The visualized lung bases are clear. Postsurgical changes of gastric bypass. Numerous le ft upper quadrant venous collaterals. LIVER: Normal in size and contour. No focal lesion. Grossly unremarkable gallbladder. SPLEEN: Moderate splenomegaly. Attenuation of the splenic vein. PANCREAS: 8.2 cm rounded cystic structure in the tail of the pancreas, mildly increased in size since comparison study likely pseudocyst. ADRENALS: Normal; no mass. KIDNEYS: Normal size and contour. No hydronephrosis. GASTROINTESTINAL TRACT: No evidence of free air, significant intra-abdominal free fluid, bowel obstru ction or abscess. Small fat-containing umbilical hernia. APPENDIX: Normal appendix. LYMPH NODES: No lymphadenopathy. MUSCULOSKELETAL: Moderate spondylosis L5-S1 with vacuum disc degeneration. ADDITIONAL FINDINGS: No ascites. IMPRESSION: Mild size increase pancreatic tail pseudocyst since comparison study. Moderate splenomegaly with attenuation of the splenic vein and numerous left upper quadrant collatera ls.
[2024-11-15 20:11] LABS: Specific Gravity 1.011 (1.005-1.030); Urine Bilirubin NEGATIVE (Negative); Urine Blood Negative (Negative); Urine Clarity Clear (Clear); Urine Color Colorless (Yellow); Urine Glucose NEGATIVE (Negative); Urine Ketones NEGATIVE (Negative); Urine Microscopic Reflex YN NO UMIC; Urine Nitrite NEGATIVE (Negative); Urine Protein NEGATIVE (Negative); Urine Urobilinogen Normal (Normal); Urine pH 6.5 (5.0-7.0)
[2024-11-15] MEDS ORDERED: HYDROMORPHONE HCL 1 MG/ML INJ ONE ×2 (20:34→22:09)
[2024-11-15] MEDS ORDERED: NA CHLORIDE 0.9% 250 ML ONE (21:41)
[2024-11-15] MEDS ORDERED: PANTOPRAZOLE 40 MG INJ ONE (22:50)
--- NOTE | 2024-11-15 23:07 | ER ---
Nurse's Notes [facility] Name: Marquise Jhaveri Age: 43 yrs Sex: Male : 1980 Arrival Date: 11/15/2024 Time: 16:30 Bed 7 Private MD: Diagnosis: Splenomegaly, not elsewhere classified;Anemia, unspecified;GI Bleed/ Gastrointestinal hemorrhage, unspecified Presentation: 11/15 17:13 Chief complaint: Patient states: RUQ, LUQ abdominal pain, SOB and chest pain that's me1 worst with exertion, pale, + dark tarry stools x 2 weeks. n/v for 2 weeks as well. Coronavirus screen: Vaccine status: Patient reports being unvaccinated. Ebola Screen: No symptoms or risks identified at this time. Initial Sepsis Screen: Does the patient meet any 2 criteria? No. Patient's initial sepsis screen is negative. Does the patient have a suspected source of infection? No. Patient's initial sepsis screen is negative. Risk Assessment: Do you want to hurt yourself or someone else? Patient reports no desire to harm self or others. Onset of symptoms is unknown. 17:13 Method Of Arrival: Ambulatory me1 17:13 Acuity: ARNULFO 3 me1 Historical: - Allergies: 17:16 No Known Allergies; me1 - PMHx: 17:16 Anxiety; herniated discs; Hypertension; Pancreatitis; me1 - PSHx: 17:16 back surgery; discectomy; Gastric Bypass; me1 - Immunization history:: Adult Immunizations up to date. - Infectious Disease History:: Denies. - Social history:: Smoking status: Reported history of juuling and/or vaping. Screenin:56 [facility] ED Fall Risk Assessment (Adult) History of falling in the last 3 months, bm8 including since admission No falls in past 3 months (0 pts) Confusion or Disorientation No (0 pts) Intoxicated or Sedated No (0 pts) Impaired Gait No (0 pts) Mobility Assist Device Used No (0 pt) Altered Elimination No (0 pt) Score/Fall Risk Level 0 - 2 = Low Risk Oriented to surroundings, Maintained a safe environment, Educated pt \T\ family on fall prevention, incl call for assistance when getting out of bed, Assessed \T\ reinforced patient's understanding of fall precautions, Hourly rounding (assess needs \T\ fall precautionary measures) done, Used ambulatory aids as needed (educated on \T\ assisted with), Used gait belt as appropriate. Abuse screen: Denies threats or abuse. Nutritional screening: No deficits noted. Tuberculosis screening: No symptoms or risk factors identified. Assessment: 20:56 General: Appears in no apparent distress. uncomfortable, Behavior is calm, cooperative, bm8 appropriate for age. Pain: Complains of pain in chest and abdomen Pain currently is 8 out of 10 on a pain scale. Neuro: No deficits noted. Level of Consciousness is awake, alert, obeys commands, Oriented to person, place, time, situation, Appropriate for age. Cardiovascular: Heart tones S1 S2 present Capillary refill < 3 seconds in bilateral fingers Patient's skin is warm and dry. Cardiovascular: Reports chest pain, shortness of breath. Respiratory: Airway is patent Respiratory effort is even, unlabored, Respiratory pattern is regular, symmetrical, Breath sounds are clear bilaterally. GI: Abdomen is flat, non-distended, Bowel sounds present X 4 quads. Abdomen is tender to palpation in left upper quadrant and left lower quadrant Reports bloody stool, nausea, Pain is 8 out of 10 on a pain scale. : No signs and/or symptoms were reported regarding the genitourinary system. EENT: No signs and/or symptoms were reported regarding the EENT system. Derm: No signs and/or symptoms reported regarding the dermatologic system. Musculoskeletal: No signs and/or symptoms reported regarding the musculoskeletal system. 22:27 Reassessment: Patient appears in no apparent distress at this time. Patient and/or bm8 family updated on plan of care and expected duration. Pain level reassessed. Patient is alert, oriented x 3, equal unlabored respirations, skin warm/dry/pink. Reassessment: Patient appears in no apparent distress at this time. Patient and/or family updated on plan of care and expected duration. Pain level reassessed. Patient is alert, oriented x 3, equal unlabored respirations, skin warm/dry/pink. GI: Reports cramping, Pain is 8 out of 10 on a pain scale. 23:21 Reassessment: Patient appears in no apparent distress at this time. Patient and/or bm8 family updated on plan of care and expected duration. Pain level reassessed. Patient is alert, oriented x 3, equal unlabored respirations, skin warm/dry/pink. c/o anxiety, provinder informed and new orders recieved Patient states feeling better. Patient states symptoms have improved. 23:21 Reassessment: report given to ANAHY Maravilla at [facility]. [facility] 23:50 Reassessment: PRBC transfusion started. 8 11/16 00:38 Reassessment: Patient appears in no apparent distress at this time. Patient and/or bm8 family updated on plan of care and expected duration. Pain level reassessed. Patient is alert, oriented x 3, equal unlabored respirations, skin warm/dry/pink. Patient states feeling better. Patient states symptoms have improved. Vital Signs: 11/15 17:13 BP 128 / 85; Pulse 71; Resp 20; Temp 98.4; Pulse Ox 100% ; Weight 104.33 kg; Height 6 me1 ft. 0 in. ; Pain 8/10; 20:59 BP 133 / 79; Pulse 87; Resp 18; Temp 98.2; Pulse Ox 100% ; Pain 8/10; bm8 22:27 BP 141 / 93; Pulse 77; Resp 16; Temp 98.2; Pulse Ox 97% ; Pain 8/10; bm8 23:21 BP 136 / 79; Pulse 79; Resp 18; Temp 98.2; Pulse Ox 100% ; Pain 0/10; bm8 11/16 00:38 BP 131 / 79; Pulse 89; Resp 18; Temp 98.5; Pulse Ox 100% ; Pain 3/10; bm8 11/15 17:13 Body Mass Index 31.19 (104.33 kg, 182.88 cm) hi1 11/15 17:13 Pain Scale: Adult me1 20:59 Pain Scale: Adult bm8 22:27 Pain Scale: Adult bm8 23:21 Pain Scale: Adult bm8 11/16 00:38 Pain Scale: Adult bm8 Anthony Coma Score: 11/15 20:56 Eye Response: spontaneous(4). Motor Response: obeys commands(6). Verbal Response: bm8 oriented(5). Total: 15. 22:27 Eye Response: spontaneous(4). Motor Response: obeys commands(6). Verbal Response: bm8 oriented(5). Total: 15. 23:21 Eye Response: spontaneous(4). Motor Response: obeys commands(6). Verbal Response: bm8 oriented(5). Total: 15. 11/16 00:38 Eye Response: spontaneous(4). Motor Response: obeys commands(6). Verbal Response: bm8 oriented(5). Total: 15. ED Course: 11/15 16:34 Patient arrived in ED. sj2 16:59 Bullock EstebanTUNG [facility] 16:59 Adalid Capone MD is Attending Physician. dr5 17:16 Triage completed. me1 17:16 Arm band placed on Patient placed in waiting room. me1 19:15 Radiology exam delayed due to lab results not completed at this time. (BUN/Creatinine) sm9 IV insertion attempt and/or patient not having appropriate IV at this time. 19:15 Inserted saline lock: 20 gauge in left antecubital area, using aseptic technique. Blood oe collected. Flushed with 10 mL NS. 19:27 CBC with Diff Sent. ha1 19:27 CMP Sent. ha1 19:27 Lipase Sent. ha1 19:53 CT Abd/Pelvis - IV Contrast Only In Process Unspecified. EDMS 20:33 Reed Tate, RN is Primary Nurse. bm8 20:56 Patient has correct armband on for positive identification. Provided Education on: bm8 Blood Transfusion, Procedure Consent. Client placed on continuous cardiac and pulse oximetry monitoring. NIBP monitoring applied. Pulse ox on. NIBP on. Door closed. Noise minimized. Warm blanket given. Pillow given. Verbal reassurance given. 20:56 Patient maintains SpO2 saturation greater than 95% on room air. bm8 21:[address] [facility], no answer. Will call back. rv1 21:[address] [facility], no answer. Will call back. rv1 21:[address] [facility], no answer. Will call back. rv1 21:43 Initiated transfer with Huong at [facility]. Huong said they are extremely backed up rv1 and understaffed so it's going to take some time to get back to me on the transfer. 22:39 Doc to Doc with Order Worker at [facility]. rv1 22:[address] Madrigal to [place] [id number]. Report #[id number]. rv1 23:00 Awaiting blood transfusion to be start before calling for transportation. 11/16 00:04 Fred with EMS gave 15 min ETA. rv1 00:38 No provider procedures requiring assistance completed. Patient transferred, IV remains bm8 in place. Administered Medications: 11/15 19:26 Drug: NS 0.9% IV 1000 ml IV at 1 bolus Per protocol; to be given as a bolus over 60 ha1 minutes Route: IV; Rate: 1 bolus; Site: left antecubital; 20:56 Follow up: Response: No adverse reaction; IV Status: Infusion continued bm8 19:27 Drug: Ondansetron IVP 4 mg IVP once; over 2 minutes Route: IVP; Site: left antecubital; ha1 20:55 Follow up: Response: No adverse reaction bm8 19:27 Drug: morphine IVP or IV 4 mg IVP once over 4 mins Route: IVP; Infused Over: 4 mins; ha1 Site: left antecubital; 20:56 Follow up: Response: No adverse reaction bm8 20:55 Drug: HYDROmorphone IVP 1 mg IVP once Route: IVP; Site: left antecubital; bm8 11/16 00:37 Follow up: Response: No adverse reaction bm8 11/15 22:18 Drug: HYDROmorphone IVP 1 mg IVP once Route: IVP; Site: left antecubital; bm8 11/16 00:37 Follow up: Response: No adverse reaction bm8 11/15 22:56 Drug: Pantoprazole IVP 40 mg IVP once Route: IVP; Site: left antecubital; cp4 11/16 00:37 Follow up: Response: No adverse reaction bm8 11/15 23:29 Drug: Ativan IVP 0.5 mg IVP once Route: IVP; Site: left antecubital; bm8 11/16 00:37 Follow up: Response: No adverse reaction bm8 00:37 Drug: HYDROmorphone IVP 0.5 mg IVP once Route: IVP; Site: left antecubital; bm8 00:37 Follow up: Response: No adverse reaction bm8 Medication: 11/15 20:56 VIS not applicable for this client. bm8 Outcome: 23:07 ER care complete, transfer ordered by . rv1 11/16 00:38 Transferred by ground EMS to [facility], Transfer form completed. bm8 X-rays sent w/ patient. Condition: stable Instructed on follow up and referral plans. the need for admit, safety practices, Demonstrated understanding of instructions, follow-up care, medications, 00:40 Patient left the ED. bm8 Signatures: Dispatcher [employer] EDIA Nam Bradshaw Heidy, RN RN ha1 Kinga Todd rv1 Zarina Benitez RN RN me1 Suyapa Finnegan cp4 Cristel Eric 9 Reed Tate RN RN bm8 Clarice Crespo2 Esteban Bullock, CYBER INCIDENT HANDLER-C CY[employer] INCIDENT HANDLER-Cdr5
--- NOTE | 2024-11-15 23:07 | EDPHYS ---
Physician Documentation [facility] Name: Marquise Jhaveri Age: 43 yrs Sex: Male : 1980 Arrival Date: 11/15/2024 Time: 16:30 Bed 7 Private MD: COLLIN Physician Adalid Capone HPI: 11/15 17:19 This 43 yrs old Male presents to ER via Ambulatory with complaints of dr5 Abdominal Pain, Shortness Of Breath, Chest Pain. 17:19 The patient presents with abdominal pain. Onset: The symptoms/episode began/occurred 3 dr5 week(s) ago. Patient is a 43 year old male coming in with upper abdominal pain that's been going on since he was last discharged from here. Patient states he doesn't have insurance and hasn't been able to follow up with anyone yet. Patient reports shortness of breath with ambulating, upper abdominal pain, dysuria.. 21:08 Patient reports having intermittent black tarry stools over the last 3 to [address]5 the last stool with blood in it being yesterday. Patient had bowel movement today that was normal. Patient reports that he stopped drinking and has not had any alcohol.. Historical: - Allergies: 17:16 No Known Allergies; me1 - PMHx: 17:16 Anxiety; herniated discs; Hypertension; Pancreatitis; me1 - PSHx: 17:16 back surgery; discectomy; Gastric Bypass; me1 - Immunization history:: Adult Immunizations up to date. - Infectious Disease History:: Denies. - Social history:: Smoking status: Reported history of juuling and/or vaping. ROS: 17:19 Constitutional: as per hpi dr5 Exam: 19:33 Constitutional: This is a well developed, well nourished patient who is awake, alert, dr5 and in no acute distress. Eyes: Pupils equal round and reactive to light, extra-ocular motions intact. Lids and lashes normal. Conjunctiva and sclera are pale, non-icteric and not injected. Cornea within normal limits. Periorbital areas with no swelling, redness, or edema. ENT: Nares patent. No nasal discharge, no septal abnormalities noted. Tympanic membranes are normal and external auditory canals are clear. Oropharynx with no redness, swelling, or masses, exudates, or evidence of obstruction, uvula midline. Mucous membranes moist. Neck: Trachea midline, no thyromegaly or masses palpated, and no cervical lymphadenopathy. Supple, full range of motion without nuchal rigidity, or vertebral point tenderness. No Meningismus. Chest/axilla: Normal chest wall appearance and motion. Nontender with no deformity. No lesions are appreciated. Respiratory: Lungs have equal breath sounds bilaterally, clear to auscultation. No rales, rhonchi or wheezes noted. No increased work of breathing, no retractions or nasal flaring. Abdomen/GI: Soft, non-tender, non-distended Skin: Warm, dry with normal turgor. Normal color with no rashes, no lesions, and no evidence of cellulitis. MS/ Extremity: Pulses equal, no cyanosis. Neurovascular intact. Full, normal range of motion. Neuro: Awake and alert, GCS 15, oriented to person, place, time, and situation. Cranial nerves II-XII grossly intact. Motor strength 5/5 in all extremities. Sensory grossly intact. Cerebellar exam normal. Normal gait. Vital Signs: 17:13 BP 128 / 85; Pulse 71; Resp 20; Temp 98.4; Pulse Ox 100% ; Weight 104.33 kg; Height 6 me1 ft. 0 in. ; Pain 8/10; 20:59 BP 133 / 79; Pulse 87; Resp 18; Temp 98.2; Pulse Ox 100% ; Pain 8/10; bm8 22:27 BP 141 / 93; Pulse 77; Resp 16; Temp 98.2; Pulse Ox 97% ; Pain 8/10; bm8 23:21 BP 136 / 79; Pulse 79; Resp 18; Temp 98.2; Pulse Ox 100% ; Pain 0/10; bm8 11/16 00:38 BP 131 / 79; Pulse 89; Resp 18; Temp 98.5; Pulse Ox 100% ; Pain 3/10; bm8 11/15 17:13 Body Mass Index 31.19 (104.33 kg, 182.88 cm) al1 11/15 17:13 Pain Scale: Adult me1 20:59 Pain Scale: Adult bm8 22:27 Pain Scale: Adult bm8 23:21 Pain Scale: Adult bm8 11/16 00:38 Pain Scale: Adult bm8 Anthony Coma Score: 11/15 20:56 Eye Response: spontaneous(4). Motor Response: obeys commands(6). Verbal Response: bm8 oriented(5). Total: 15. 22:27 Eye Response: spontaneous(4). Motor Response: obeys commands(6). Verbal Response: bm8 oriented(5). Total: 15. 23:21 Eye Response: spontaneous(4). Motor Response: obeys commands(6). Verbal Response: bm8 oriented(5). Total: 15. 11/16 00:38 Eye Response: spontaneous(4). Motor Response: obeys commands(6). Verbal Response: bm8 oriented(5). Total: 15. MDM: 11/15 17:00 Medical Screening Exam initiated dr5 11/16 00:33 Differential diagnosis: gastritis, GI Bleed, Anemia. Data reviewed: vital signs, nurses dr5 notes, lab test result(s). I considered the following discharge prescriptions or medication management in the emergency department Medications were administered in the Emergency Department. See MAR. Care significantly affected by the following chronic conditions: Hypertension, pancreatitis, anxiety, splenomegaly. Care significantly affected by the following Social Determinants of Health: Poor access to healthcare and/or lack of insurance, Poor access to transportation, Problems related to employment. Counseling: I had a detailed discussion with the patient and/or guardian regarding the historical points, exam findings, and any diagnostic results supporting the discharge/admit diagnosis, the presence of at least one elevated blood pressure reading (>120/80) during this emergency department visit, lab results, the need to transfer to another facility, for higher level of care, [facility] does not immediately have the required specialist, No GI available at [facility] for admission.. Response to treatment: the patient's symptoms have markedly improved after treatment. ED course: Accepted by Dr. Madrigal. Will give Protonix bolus and transfer patient. . 11/15 17:17 Order name: CBC with Diff; Complete Time: 19:57 dr5 11/15 17:17 Order name: CMP; Complete Time: 19:39 dr5 11/15 17:17 Order name: Lipase; Complete Time: 19:39 dr5 11/15 17:17 Order name: Urinalysis w/ reflexes; Complete Time: 20:11 dr5 11/15 19:34 Order name: CBC Smear Scan; Complete Time: 19:57 EDMS 11/15 19:43 Order name: Type And Screen dr5 11/15 21:18 Order name: Packed RBC Leukored EDNE 11/15 22:14 Order name: ABO/RH no charge; Complete Time: 22:16 EDNE 11/15 17:17 Order name: CT Abd/Pelvis - IV Contrast Only; Complete Time: 20:10 dr5 11/15 17:17 Order name: IV Saline Lock; Complete Time: 19:27 dr5 11/15 17:17 Order name: Labs collected and sent; Complete Time: 19:27 dr5 11/15 19:43 Order name: Consent for Blood Transfusion; Complete Time: 20:55 dr5 11/15 19:43 Order name: IV Saline Lock; Complete Time: 20:52 dr5 11/15 19:43 Order name: Transfer - Initiate; Complete Time: 00:38 dr5 Administered Medications: 11/15 19:26 Drug: NS 0.9% IV 1000 ml IV at 1 bolus Per protocol; to be given as a bolus over 60 ha1 minutes Route: IV; Rate: 1 bolus; Site: left antecubital; 20:56 Follow up: Response: No adverse reaction; IV Status: Infusion continued bm8 19:27 Drug: Ondansetron IVP 4 mg IVP once; over 2 minutes Route: IVP; Site: left antecubital; ha1 20:55 Follow up: Response: No adverse reaction 8 19:27 Drug: morphine IVP or IV 4 mg IVP once over 4 mins Route: IVP; Infused Over: 4 mins; ha1 Site: left antecubital; 20:56 Follow up: Response: No adverse reaction bm8 20:55 Drug: HYDROmorphone IVP 1 mg IVP once Route: IVP; Site: left antecubital; bm8 11/16 00:37 Follow up: Response: No adverse reaction 8 11/15 22:18 Drug: HYDROmorphone IVP 1 mg IVP once Route: IVP; Site: left antecubital; bm8 11/16 00:37 Follow up: Response: No adverse reaction 8 11/15 22:56 Drug: Pantoprazole IVP 40 mg IVP once Route: IVP; Site: left antecubital; cp4 11/16 00:37 Follow up: Response: No adverse reaction 8 11/15 23:29 Drug: Ativan IVP 0.5 mg IVP once Route: IVP; Site: left antecubital; bm8 11/16 00:37 Follow up: Response: No adverse reaction bm8 00:37 Drug: HYDROmorphone IVP 0.5 mg IVP once Route: IVP; Site: left antecubital; bm8 00:37 Follow up: Response: No adverse reaction bm8 Disposition Summary: 11/15/24 23:07 Transfer Ordered Notes: Transfer Location: [facility] rv1 Reason: Higher level of care rv1 Condition: Stable rv1 Problem: new rv1 Symptoms: have improved rv1 Accepting Physician: Dr. Madrigal(11/16/24 00:40) bm8 Diagnosis - Splenomegaly, not elsewhere classified rv1 - Anemia, unspecified rv1 - GI Bleed/ Gastrointestinal hemorrhage, unspecified rv1 Discharge Instructions: - Discharge Summary Sheet bm8 Forms: - Medication Reconciliation Form rv1 - SBAR form bm8 Critical care time excluding procedures: 00:33 Critical care time: Bedside Care: 20 minutes, Consultation: 10 minutes. Total time: 30 dr5 minutes Signatures: Dispatcher [employer] EDMS Xuan Hilario, RN RN ha1 Kinga Todd rv1 Zarina Benitez RN RN me1 Suyapa Finnegan cp4 Reed Tate RN RN bm8 Esteban Bullock, SPECTROGRAPH OPERATOR-C SPECTROGRAPH OPERATOR-Cdr5 Corrections: (The following items were deleted from the chart) 11/15 21:19 19:44 PACKED RBC LEUKORED+BB.LAB.BRZ ordered. EDNE EDMS 21:19 19:46 ABO/RH typing ordered. EDNE EDMS 21:19 19:46 Antibody Screen ordered. EDMS EDMS 11/16 00:40 11/15 23:07 Dr. Madrigal rv1 bm8
[2024-11-15] MEDS ORDERED: LORazepam 2 MG/ML VIAL ONE (23:19)
[2024-11-16] MEDS ORDERED: HYDROMORPHONE HCL 0.5 MG/0.5 ML INJ ONE (00:32)
[2024-11-17 10:18] VITALS: O2SAT 100
[2024-11-17 10:19] VITALS: BP 131/79; TEMP 98.5
== END 2024-11-16 00:40 | disposition short-term general hospital (02) ==
LOC: ER 16:30
PROC: 30233N1 Transfusion of Nonautologous Red Blood Cells into Peripheral Vein, Percutaneous Approach (ICD-10-PCS; principal; 2024-11-16)
DX: D64.9 Anemia, unspecified (principal); R16.1 Splenomegaly, not elsewhere classified
CPT/HCPCS: 36415; 74177; 80053; 81003; 83690; 85025; 86850; 86900; 86901; 86920; 96361; 96374; 96375; 99285; J1171; J2405; J2470; J7030; J7050; P9016; Q9967

== ENCOUNTER 2024-12-03 10:01 | Emergency (ER) | payer SELFPAY ==
--- NOTE | 2024-12-03 11:07 | RAD REPORT ---
EXAMINATION: ONE VIEW CHEST XR CLINICAL INDICATION: DYSPNEA TECHNIQUE: Frontal chest projection is submitted. Examination is limited by patient positioning and t echnique. COMPARISON: 12/09/2023 FINDINGS: The lungs are well inflated and clear. The heart is upper limit of normal in size. No displaced fract ures identified. IMPRESSION: No acute intrathoracic abnormalities.
[2024-12-03] MEDS ORDERED: ONDANSETRON 4 MG/2 ML VIAL ONE (11:13)
[2024-12-03] MEDS ORDERED: FAMOTIDINE 20 MG/2 ML VIAL IV ONE (11:13)
[2024-12-03] MEDS ORDERED: MORPHINE 4 MG/ML SYR ONE ×2 (11:13→12:08)
[2024-12-03] MEDS ORDERED: NA CHLORIDE 0.9% 1,000 ML ONE (11:13)
[2024-12-03] MEDS ORDERED: CIPROFLOXACIN 400mg IV 400 MG/200 ML BAG IV ONE (11:14)
[2024-12-03] MEDS ORDERED: METRONIDAZOLE 500mg IVPB 500 MG/100 ML BAG IV ONE (11:14)
[2024-12-03 11:46] LABS: PT Prothrombin Time 12.3 SECONDS (10-13.0); Protime INR 1.08
[2024-12-03 11:51] LABS: Absolute Lymphocytes (CBC) 0.8 K/uL (0.7-4.9); Absolute Monocytes 0.3 K/uL (0.1-1.3); Absolute Neutrophil 3.1 K/uL (1.8-8.0); Basophils % 0.8 % (0-1.3); Eosinophils % 0.9 % (0-4.4); Hematocrit 33.9 % (39.6-49.0); Hemoglobin 10.9 g/dL (13.6-17.9); Lymphocytes % 17.8 % (15.3-44.8); MCH 24.9 pg (27.0-35.0); MCHC 32.1 g/dL (32.0-36.0); MCV 77.5 fL (80-100); MPV 7.7 fL (7.6-11.3); Neutrophils % 73.5 % (41.7-73.7); Nucleated Red Blood Cells % 0.1 % (0-0); Platelets 211 thou/uL (152-406); RBC Red Blood Cell Count 4.37 M/uL (4.33-5.43); Red Cell Distribution Width 29.3 % (12.1-15.2)
[2024-12-03 12:00] LABS: Albumin 3.8 g/dL (3.4-5.0); Albumin/Globulin Ratio 1.3 (1.1-1.8); Anion Gap 6.3 mEq/L (5.0-15.0); Bilirubin Direct 0.2 mg/dL (0-0.2); Bilirubin Indirect, Calculated 0.2 mg/dL (0.2-0.8); Bilirubin Total 0.4 mg/dL (0.2-1.0); Magnesium 2.1 mg/dL (1.6-2.4); Potassium 4.3 mEq/L (3.5-5.1); Protein, Total 6.8 g/dL (6.4-8.2); Troponin High Sensitivity 3.7 pg/mL (<58.9)
--- NOTE | 2024-12-03 12:01 | RAD REPORT ---
EXAMINATION: CT ABDOMEN AND PELVIS WITH CONTRAST CLINICAL INDICATION: Abd pain;Lower GI bleed TECHNIQUE: CT abdomen and pelvis was performed, after the administration of IV contrast, as per [facility] protocol. Axial, sagittal and coronal reconstructions were obtained. One or more of the following dose reduction techniques were used: Automated exposure control, adjustment of the mA and k V according to patient size, and iterative reconstruction. Unless otherwise specified, incidental findings do not require dedicated imaging follow-up. COMPARISON: 11/15/2024 FINDINGS: LOWER CHEST: The visualized lung bases are clear. Postsurgical changes of gastric bypass. LIVER: Normal in size and contour. No focal lesion. Grossly unremarkable gallbladder. SPLEEN: Mild splenomegaly. PANCREAS: 8.3 cm cystic lesion pancreatic tail is unchanged likely chronic pseudocyst. 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 ADRENALS: Normal; no mass. KIDNEYS: Normal size and contour. No hydronephrosis. GASTROINTESTINAL TRACT: No evidence of free air, significant intra-abdominal free fluid, bowel obstru ction or abscess. Numerous venous collaterals in the left upper quadrant. APPENDIX: Normal appendix. LYMPH NODES: No lymphadenopathy. MUSCULOSKELETAL: Moderate L5-S1 spondylosis. ADDITIONAL FINDINGS: Small fat-containing umbilical hernia. IMPRESSION: No acute abnormalities seen in the abdomen or pelvis. Stable chronic pancreatic pseudocyst. Mild splenomegaly with attenuation of the splenic vein and numerous left upper quadrant venous collat erals.
--- NOTE | 2024-12-03 12:42 | EDPHYS ---
Physician Documentation [facility] Name: Marquise Jhaveri Age: 43 yrs Sex: Male : 1980 Arrival Date: 12/03/2024 Time: 10:01 Bed 13 Private MD: ED Physician Adalid Capone HPI: 12/03 12:36 This 43 yrs old Male presents to ER via Ambulatory with complaints of etelvina Abdominal Pain, Bloody Stools, Shortness Of Breath, Nausea. 12:36 The patient has shortness of breath at rest, with light activity. Onset: The etelvina symptoms/episode began/occurred 2 day(s) ago. Duration: The symptoms are continuous, and are unchanged since they started. The patient's shortness of breath has no apparent modifying factors. Associated signs and symptoms: Pertinent positives: non-productive cough. Severity of symptoms: At their worst the symptoms were mild in the emergency department the symptoms are unchanged. The patient has experienced similar episodes in the past, multiple times. Historical: - Allergies: 10:36 No Known Allergies; jl7 - PMHx: 10:36 Anxiety; herniated discs; Hypertension; Pancreatitis; GI Bleed (November 2024); jl7 - PSHx: 10:36 back surgery; discectomy; Gastric Bypass; jl7 - Immunization history:: Adult Immunizations unknown. - Infectious Disease History:: Denies. - Social history:: Smoking status: Reported history of juuling and/or vaping. - Family history:: not pertinent. ROS: 12:37 Constitutional: Negative for fever, chills, and weight loss, Eyes: Negative for injury, etelvina pain, redness, and discharge, ENT: Negative for injury, pain, and discharge, Neck: Negative for injury, pain, and swelling, Cardiovascular: Negative for chest pain, palpitations, and edema, Respiratory: Negative for shortness of breath, cough, wheezing, and pleuritic chest pain, Back: Negative for injury and pain, : Negative for injury, bleeding, discharge, and swelling, MS/Extremity: Negative for injury and deformity, Skin: Negative for injury, rash, and discoloration, Neuro: Negative for headache, weakness, numbness, tingling, and seizure, Psych: Negative for depression, anxiety, suicide ideation, homicidal ideation, and hallucinations, Allergy/Immunology: Negative for hives, rash, and allergies, Endocrine: Negative for neck swelling, polydipsia, polyuria, polyphagia, and marked weight changes, Hematologic/Lymphatic: Negative for swollen nodes, abnormal bleeding, and unusual bruising, 12:37 Abdomen/GI: Positive for abdominal pain, vomiting, abdominal cramps, Exam: 12:39 Constitutional: This is a well developed, well nourished patient who is awake, alert, etelvina and in no acute distress. Head/Face: Normocephalic, atraumatic. Eyes: Pupils equal round and reactive to light, extra-ocular motions intact. Lids and lashes normal. Conjunctiva and sclera are non-icteric and not injected. Cornea within normal limits. Periorbital areas with no swelling, redness, or edema. ENT: Nares patent. No nasal discharge, no septal abnormalities noted. Tympanic membranes are normal and external auditory canals are clear. Oropharynx with no redness, swelling, or masses, exudates, or evidence of obstruction, uvula midline. Mucous membranes moist. Neck: Trachea midline, no thyromegaly or masses palpated, and no cervical lymphadenopathy. Supple, full range of motion without nuchal rigidity, or vertebral point tenderness. No Meningismus. Chest/axilla: Normal chest wall appearance and motion. Nontender with no deformity. No lesions are appreciated. Cardiovascular: Regular rate and rhythm with a normal S1 and S2. No gallops, murmurs, or rubs. Normal PMI, no JVD. No pulse deficits. Respiratory: Lungs have equal breath sounds bilaterally, clear to auscultation and percussion. No rales, rhonchi or wheezes noted. No increased work of breathing, no retractions or nasal flaring. Abdomen/GI: Soft, non-tender, with normal bowel sounds. No distension or tympany. No guarding or rebound. No evidence of tenderness throughout. Back: No spinal tenderness. No costovertebral tenderness. Full range of motion. Male : Normal genitalia with no discharge or lesions. Skin: Warm, dry with normal turgor. Normal color with no rashes, no lesions, and no evidence of cellulitis. MS/ Extremity: Pulses equal, no cyanosis. Neurovascular intact. Full, normal range of motion., bilateral aka Neuro: Awake and alert, GCS 15, oriented to person, place, time, and situation. Cranial nerves II-XII grossly intact. Motor strength 5/5 in all extremities. Sensory grossly intact. Cerebellar exam normal. Normal gait. Psych: Awake, alert, with orientation to person, place and time. Behavior, mood, and affect are within normal limits. 12:39 Abdomen/GI: Bowel sounds: normal, Palpation: abdomen is soft and non-tender, Rectal exam: is unremarkable, Prostate: normal, rectal tone normal, Stool: guaiac negative, hemorrhoid(s), are not appreciated, mass, is not appreciated, Liver: no appreciated palpable abnormalities, Hernia: not appreciated, 13:18 ECG was reviewed by the Attending Physician. [facility] Vital Signs: 10:34 BP 126 / 83; Pulse 75; Resp 17; Temp 97.5; Pulse Ox 99% ; Weight 101.15 kg; Height 6 jl7 ft. 0 in. ; Pain 7/10; 11:15 BP 115 / 71; Pulse 62; Resp 16; Pulse Ox 99% ; db 12:00 BP 118 / 79; Pulse 63; Resp 16; Pulse Ox 99% on R/A; db 13:00 BP 115 / 83; Pulse 60; Resp 16; Pulse Ox 99% on R/A; db 10:34 Body Mass Index 30.24 (101.15 kg, 182.88 cm) jl7 10:34 Pain Scale: Adult jl7 MDM: 10:34 Medical Screening Exam initiated etelvina 13:16 Differential diagnosis: Anemia Anxiety Reaction reactive airway disease. Antibiotic etelvina administration: Not indicated. Immunization status:. Data reviewed: vital signs, nurses notes, lab test result(s), radiologic studies, CT scan. Consideration of Admission/Observation Escalation of care including admission/observation considered. I considered the following discharge prescriptions or medication management in the emergency department Medications were administered in the Emergency Department. See MAR. Independent interpretation of the following test(s) in the Emergency Department EKG: See my EKG interpretation above. Test considered but Not performed: Ultrasound no abd usg. Historians other than the Patient: pt well informed. Care significantly affected by the following chronic conditions: Hypertension, Obesity, gi bleed, gastric bypass, pancreatitic. Counseling: I had a detailed discussion with the patient and/or guardian regarding the historical points, exam findings, and any diagnostic results supporting the discharge/admit diagnosis, lab results, radiology results, the need for outpatient follow up, for definitive care, a family practitioner, a vice principal. 12/03 10:20 Order name: Basic Metabolic Panel; Complete Time: 12:15 [facility] 12/03 10:20 Order name: CBC with Diff [facility] 12/03 10:20 Order name: LFT's; Complete Time: 12:15 [facility] 12/03 10:20 Order name: Magnesium; Complete Time: 12:15 [facility] 12/03 10:20 Order name: NT PRO-BNP; Complete Time: 12:15 [facility] 12/03 10:20 Order name: PT-INR; Complete Time: 12:15 [facility] 12/03 10:20 Order name: Troponin HS; Complete Time: 12:15 [facility] 12/03 10:20 Order name: Lipase; Complete Time: 12:15 [facility] 12/03 10:20 Order name: Type And Screen [facility] 12/03 13:18 Order name: CBC Smear Scan EDGA 12/03 10:20 Order name: XRAY Chest (1 view); Complete Time: 12:15 [facility] 12/03 10:20 Order name: CT Abd/Pelvis - IV Contrast Only; Complete Time: 12:15 [facility] 12/03 10:20 Order name: Cardiac monitoring; Complete Time: 13:59 [facility] 12/03 10:20 Order name: EKG - Nurse/Tech; Complete Time: 13:20 [facility] 12/03 10:20 Order name: IV Saline Lock; Complete Time: 11:45 [facility] 12/03 10:20 Order name: Labs collected and sent; Complete Time: 11:45 [facility] 12/03 10:20 Order name: O2 Per Protocol; Complete Time: 11:45 [facility] 12/03 10:20 Order name: O2 Sat Monitoring; Complete Time: 11:45 [facility] EC:18 Rate is 55 beats/min. Rhythm is regular. QRS Mouthcard is Normal. MT interval is normal. QRS etelvina interval is normal. QT interval is normal. No Q waves. T waves are Normal. No ST changes noted. Clinical impression: Normal ECG, Sinus bradycardia, and No evidence of ischemia. Interpreted by me. Reviewed by me. Administered Medications: 11:23 Drug: NS 0.9% IV 1000 ml IV at 1 bolus Per protocol; to be given as a bolus over 60 db minutes Route: IV; Rate: 1 bolus; Site: right antecubital; 13:59 Follow up: Response: No adverse reaction; IV Status: Completed infusion; IV Intake: db 1000ml 11:25 Drug: Famotidine IVP 20 mg IVP once; dilute with 10 mL 0.9% NaCl; give over 2 minutes db Route: IVP; Site: right antecubital; 14:01 Follow up: Response: No adverse reaction db 11:25 Drug: Ondansetron IVP 8 mg IVP once; over 2 minutes Route: IVP; Site: right antecubital;db 14:01 Follow up: Response: No adverse reaction db 11:25 Drug: morphine IVP or IV 4 mg IVP once over 4 mins Route: IVP; Infused Over: 4 mins; db Site: right antecubital; 14:00 Follow up: Response: No adverse reaction db 11:30 Drug: metroNIDAZOLE IVPB 500 mg 100 ml IVPB at 200 ml/hr once over 30 mins Volume: 100 db ml; Route: IVPB; Rate: 200 ml/hr; Infused Over: 30 mins; Site: right antecubital; 14:00 Follow up: Response: No adverse reaction; IV Status: Completed infusion; IV Intake: db 100ml 12:15 Drug: morphine IVP or IV 4 mg IVP once over 4 mins Route: IVP; Infused Over: 4 mins; db Site: right antecubital; 14:00 Follow up: Response: No adverse reaction db 12:41 Not Given (Physician Discretion): [id number] mg 200 ml IVPB once over 60 mins db 13:46 Drug: HYDROcodone-acetaminophen PO 5 mg-325 mg 2 tabs PO once Route: PO; db 14:00 Follow up: Response: No adverse reaction db 13:52 Drug: Sucralfate PO 1 grams PO once Route: PO; db 14:00 Follow up: Response: No adverse reaction db Disposition Summary: 12/03/24 12:42 Discharge Ordered Notes: Location: Home etelvina Problem: new etelvina Symptoms: have improved etelvina Condition: Stable etelvina Diagnosis - Abdominal pain, Generalized etelvina - GI Bleed/ Gastrointestinal hemorrhage, unspecified etelvina - Anemia, unspecified etelvina Followup: etelvina - With: Private Physician - When: 2 - 3 days - Reason: Recheck today's complaints, Continuance of care, Re-evaluation by your physician Followup: etevlina - With: Qiana Marley MD - When: 2 - 3 days - Reason: Recheck today's complaints, Re-evaluation by your physician Discharge Instructions: - Discharge Summary Sheet etelvina - Abdominal Pain, Adult etelvina - Anemia etelvina - Abdominal Pain, Adult, [id number] etelvina - Gastrointestinal Bleeding, [id number] etelvina Forms: - Medication Reconciliation Form etelvina - Antibiotic Education etelvina - Prescription Opioid Use etelvina - Patient Portal Instructions etelvina - Leadership Thank You Letter etelvina - Work release form db Prescriptions: - ondansetron 4 mg Oral Tablet,disintegrating - take 1 tablet ORAL route every 8 hours prn; 20 tablet; Refills: 0, Product etelvina Selection Permitted - Carafate 1 gram Oral tablet - take 1 tablet ORAL route 4 times per day take on an empty stomach, beginning on etelvina waking and last dose at bedtime; 40 tablet; Refills: 0, Product Selection Permitted - Protonix 40 mg Oral tablet, delayed release (enteric coated) - take 1 tablet ORAL route every 12 hours; 30 tablet; Refills: 0, Product etelvina Selection Permitted - dicyclomine 20 mg Oral tablet - take 1 tablet ORAL route 4 times per day; 28 tablet; Refills: 0, Product etelvina Selection Permitted Signatures: Dispatcher [employer] EDMS Adalid Capone MD MD cha Leal, Jahala, RN RN jl7 Alize Johns, RN RN db Corrections: (The following items were deleted from the chart) 10:20 10:20 BASIC METABOLIC PANEL+C.LAB.BRZ ordered. EDMS EDMS 10:20 10:20 CBC+H.LAB.BRZ ordered. EDMS EDMS 10:20 10:20 HEPATIC FUNCTION+C.LAB.BRZ ordered. EDMS EDMS 10:20 10:20 MAGNESIUM+C.LAB.BRZ ordered. EDMS EDMS 10:20 10:20 PROBNP+C.LAB.BRZ ordered. EDMS EDMS 10:20 10:20 PROTIME (+INR)+COAG.LAB.BRZ ordered. EDMS EDMS 10:20 10:20 Troponin High Sensitivity+C.LAB.BRZ ordered. EDMS EDMS 10:20 10:20 LIPASE+C.LAB.BRZ ordered. EDMS EDMS 10:20 10:20 TYPE AND SCREEN+BB.LAB.BRZ ordered. EDMS EDMS 10:20 10:20 Chest Single View+RAD.RAD.BRZ ordered. EDMS EDMS 10:21 10:21 Abdomen Pelvis W Con+CT.RAD.BRZ ordered. EDMS EDMS
--- NOTE | 2024-12-03 12:42 | ER ---
Nurse's Notes [facility] Name: Marquise Jhaveri Age: 43 yrs Sex: Male : 1980 Arrival Date: 12/03/2024 Time: 10:01 Bed 13 Private MD: Diagnosis: Abdominal pain, Generalized;GI Bleed/ Gastrointestinal hemorrhage, unspecified;Anemia, unspecified Presentation: 12/03 10:34 Chief complaint: Patient states: Upper abd pain, nausea, black tarry stool, SOB on jl7 exertion x 2 days. Coronavirus screen: At this time, the client does not indicate any symptoms associated with coronavirus-19. Ebola Screen: No symptoms or risks identified at this time. Initial Sepsis Screen: Does the patient meet any 2 criteria? No. Patient's initial sepsis screen is negative. Does the patient have a suspected source of infection? No. Patient's initial sepsis screen is negative. Risk Assessment: Do you want to hurt yourself or someone else? Patient reports no desire to harm self or others. Onset of symptoms was November 21, 2024. 10:34 Method Of Arrival: Ambulatory jl7 10:34 Acuity: ARNULFO 3 jl7 Triage Assessment: 10:36 General: Appears in no apparent distress. uncomfortable, Behavior is calm, cooperative, jl7 appropriate for age. Pain: Complains of pain in abdomen Pain currently is 7 out of 10 on a pain scale. GI: Reports bloody stool, nausea. Historical: - Allergies: 10:36 No Known Allergies; jl7 - PMHx: 10:36 Anxiety; herniated discs; Hypertension; Pancreatitis; GI Bleed (November 2024); jl7 - PSHx: 10:36 back surgery; discectomy; Gastric Bypass; jl7 - Immunization history:: Adult Immunizations unknown. - Infectious Disease History:: Denies. - Social history:: Smoking status: Reported history of juuling and/or vaping. - Family history:: not pertinent. Screenin:23 [facility] ED Fall Risk Assessment (Adult) History of falling in the last 3 months, db including since admission No falls in past 3 months (0 pts) Confusion or Disorientation No (0 pts) Intoxicated or Sedated No (0 pts) Impaired Gait No (0 pts) Mobility Assist Device Used No (0 pt) Altered Elimination No (0 pt) Score/Fall Risk Level 0 - 2 = Low Risk Oriented to surroundings, Maintained a safe environment. Abuse screen: Denies threats or abuse. Denies injuries from another. Nutritional screening: No deficits noted. Tuberculosis screening: No symptoms or risk factors identified. Assessment: 11:23 Reassessment: Patient appears in no apparent distress at this time. Patient and/or db family updated on plan of care and expected duration. Pain level reassessed. Patient is alert, oriented x 3, equal unlabored respirations, skin warm/dry/pink. General: Appears in no apparent distress. comfortable, Behavior is calm, cooperative. Pain: Complains of pain in abdomen. Neuro: Level of Consciousness is awake, alert, obeys commands, Oriented to person, place, time, situation. Respiratory: Airway is patent Respiratory effort is even, unlabored, Respiratory pattern is regular, symmetrical. 13:45 Reassessment: Patient appears in no apparent distress at this time. Patient and/or db family updated on plan of care and expected duration. Pain level reassessed. Patient is alert, oriented x 3, equal unlabored respirations, skin warm/dry/pink. PT SPEAKING WITH DR. ROUSSEAU. REQUESTING NARCOTIC PAIN MEDICATION FOR HOME. Vital Signs: 10:34 BP 126 / 83; Pulse 75; Resp 17; Temp 97.5; Pulse Ox 99% ; Weight 101.15 kg; Height 6 jl7 ft. 0 in. ; Pain 7/10; 11:15 BP 115 / 71; Pulse 62; Resp 16; Pulse Ox 99% ; db 12:00 BP 118 / 79; Pulse 63; Resp 16; Pulse Ox 99% on R/A; db 13:00 BP 115 / 83; Pulse 60; Resp 16; Pulse Ox 99% on R/A; db 10:34 Body Mass Index 30.24 (101.15 kg, 182.88 cm) jl7 10:34 Pain Scale: Adult jl7 ED Course: 10:04 Patient arrived in ED. im 10:16 Adalid Rousseau MD is Attending Physician. etelvina 10:36 Triage completed. jl7 10:36 Arm band placed on right wrist. jl7 10:44 Alize Johns, RN is Primary Nurse. db 10:49 XRAY Chest (1 view) In Process Unspecified. EDMS 11:23 Initial lab(s) drawn, by me, sent to lab. Inserted saline lock: 20 gauge in right db antecubital area, using aseptic technique. Blood collected. Flushed with 10 mL NS. 11:[address] db 11:44 Patient has correct armband on for positive identification. Bed in low position. Call db light in reach. Side rails up X 1. Pulse ox on. NIBP on. 11:47 CT Abd/Pelvis - IV Contrast Only In Process Unspecified. EDMS 11:[address] from [address]. db 12:42 Qiana Marley MD is Referral Physician. [facility] 14:03 Provided Education on: DISCHARGE AND FOLLOWUP. db 14:03 No provider procedures requiring assistance completed. IV discontinued, intact, db bleeding controlled, No redness/swelling at site. Administered Medications: 11:23 Drug: NS 0.9% IV 1000 ml IV at 1 bolus Per protocol; to be given as a bolus over 60 db minutes Route: IV; Rate: 1 bolus; Site: right antecubital; 13:59 Follow up: Response: No adverse reaction; IV Status: Completed infusion; IV Intake: db 1000ml 11:25 Drug: Famotidine IVP 20 mg IVP once; dilute with 10 mL 0.9% NaCl; give over 2 minutes db Route: IVP; Site: right antecubital; 14:01 Follow up: Response: No adverse reaction db 11:25 Drug: Ondansetron IVP 8 mg IVP once; over 2 minutes Route: IVP; Site: right antecubital;db 14:01 Follow up: Response: No adverse reaction db 11:25 Drug: morphine IVP or IV 4 mg IVP once over 4 mins Route: IVP; Infused Over: 4 mins; db Site: right antecubital; 14:00 Follow up: Response: No adverse reaction db 11:30 Drug: metroNIDAZOLE IVPB 500 mg 100 ml IVPB at 200 ml/hr once over 30 mins Volume: 100 db ml; Route: IVPB; Rate: 200 ml/hr; Infused Over: 30 mins; Site: right antecubital; 14:00 Follow up: Response: No adverse reaction; IV Status: Completed infusion; IV Intake: db 100ml 12:15 Drug: morphine IVP or IV 4 mg IVP once over 4 mins Route: IVP; Infused Over: 4 mins; db Site: right antecubital; 14:00 Follow up: Response: No adverse reaction db 12:41 Not Given (Physician Discretion): [id number] mg 200 ml IVPB once over 60 mins db 13:46 Drug: HYDROcodone-acetaminophen PO 5 mg-325 mg 2 tabs PO once Route: PO; db 14:00 Follow up: Response: No adverse reaction db 13:52 Drug: Sucralfate PO 1 grams PO once Route: PO; db 14:00 Follow up: Response: No adverse reaction db Medication: 11:23 VIS not applicable for this client. db Intake: 13:59 IV: 1000ml; Total: 1000ml. db 14:00 IV: 100ml; Total: 1100ml. db Outcome: 12:42 Discharge ordered by . etelvina 14:03 Discharged to home ambulatory, db 14:03 Condition: stable 14:03 Condition: good 14:03 Discharge instructions given to patient, Instructed on discharge instructions, follow up and referral plans. Prescriptions given X 4, 14:03 Patient left the ED. db Signatures: Dispatcher [employer] Adalid Gillespie MD MD cha Leal, Jahala RN RN jlAlize Langford, RN RN db Maryana Iraheta
[2024-12-03 13:17] LABS: Anisocytosis 2+; Blood Morphology Comment NOTED (NOT SEEN); Hypochromasia 1+; Macrocytosis SLIGHT; Microcytosis 1+; Ovalocytes SLIGHT; Platelet Estimate ADEQ; White Blood Cell Scan OK (OK)
[2024-12-03] MEDS ORDERED: HYDROCODONE/APAP 5/325 MG TAB ONE (13:41)
[2024-12-03] MEDS ORDERED: SUCRALFATE 1 GM TABLET ONE (13:53)
[2024-12-03 14:10] VITALS: TEMP 97.5; O2SAT 99
[2024-12-03 14:13] VITALS: BP 115/83
--- NOTE | 2024-12-07 16:55 | EKG ---
Test Date: 2024-12-03 Test Time: 13:11:57 Plugger Worker: VLAD MEASUREMENT RESULTS: Intervals: Rate: 55 MI: 136 QRSD: 100 QT: 424 QTc: 405 [place]: P: 50 MI: 136 QRS: 23 T: 26 INTERPRETIVE STATEMENTS: Sinus bradycardia with sinus arrhythmia Otherwise normal ECG Compared to ECG 12/09/2023 20:28:26 Sinus rhythm no longer present Left ventricular hypertrophy no longer present Electronically Signed On 12-07-24 16:49:46 CDT by Evan Holley
== END 2024-12-03 14:03 | disposition home or self-care (01) ==
LOC: ER 10:01
DX: D64.9 Anemia, unspecified (principal); R10.84 Generalized abdominal pain
CPT/HCPCS: 36415; 71045; 74177; 80048; 80076; 83690; 83735; 83880; 84484; 85025; 85610; 86850; 86900; 86901; 93005; 96365; 96366; 96375; 99285; J0744; J2405; J7030; Q9967